=== PATIENT | female | born 1975 ===

== ENCOUNTER → 2020-04-13 08:54 | Outpatient (BNVA) | payer OTHER, SELFPAY | PROVIDERS: PCP Internal Medicine; Referring Provider Internal Medicine; Visit Provider Nurse Practitioner | DX: K31.84 Gastroparesis (principal); K59.04 Chronic idiopathic constipation; K21.9 Gastro-esophageal reflux disease without esophagitis; Z79.899 Other long term (current) drug therapy | CPT/HCPCS: 99213 ==

== ENCOUNTER 2020-06-19 08:25 | Outpatient (REF) | payer OTHER, SELFPAY ==
[2020-06-19 11:13] LABS: MANUAL DIFF FLAG NO
[2020-06-19 11:25] LABS: Basophils Percent Auto 0.4 % (0-2); Eosinophils Absolute Auto 0.1 X10*3/uL (0.0-0.4); Eosinophils Percent Auto 1.3 % (0-4); Hematocrit 41.5 % (37-47); Imm Gran Abs Auto 0.04 X10*3/uL (0.00-0.03); Imm Gran Pct Auto 0.5 % (0.0-0.4); Lymphocytes Absolute Auto 2.1 X10*3/uL (1.2-4.9); Lymphocytes Percent Auto 28.3 % (20-40); Mean Corpuscular HGB Conc 31.3 g/dl (31.0-35.0); Mean Corpuscular Volume 95.6 fL (80-98); Mean Platelet Volume 11.1 fL (9.4-12.3); Monocytes Absolute Auto 0.6 X10*3/uL (0.1-1.2); Monocytes Percent Auto 8.5 % (2-11); Neutrophils Absolute Auto 4.6 X10*3/uL (2.0-8.3); Platelet Count 256 X10*3/uL (160-400); Red Blood Count 4.34 X10*6/uL (4.20-5.50); Red Cell Distribution Width 12.9 % (11.0-16.0); White Blood Count 7.5 X10*3/uL (4.8-10.8)
[2020-06-19 11:43] LABS: Glucose Urine UA NEG (NEG); Leukocyte Esterase Urine NEG (NEG); Nitrite Urine NEG (NEG); PH 5.5 (5.0-8.0); Specific Gravity - Urine >= 1.030 (1.005-1.025); Urine Blood NEG (NEG); Urine Ketones NEG (NEG); Urine Protein NEG (NEG-TRACE)
[2020-06-19 11:48] LABS: Appearance Urine CLEAR; Color Urine YELLOW
[2020-06-19 11:50] LABS: Alanine Aminotransferase 31 U/L (0-31); Alkaline Phosphatase 119 U/L (39-117); Anion Gap 12 (12-20); Aspartate Amino Transferase 23 U/L (5-31); Bilirubin Total 0.2 mg/dL (0.0-1.0); Blood Urea Nitrogen 13 mg/dL (9-16); Calcium 9.3 mg/dL (8.4-10.2); Carbon Dioxide 25 mmol/L (22-29); Chloride 104 mmol/L (96-108); Cholesterol 159 mg/dL; Estimated Glomerular Filt Rate > 60; Glucose Fasting 133 mg/dL (60-99); HDL Cholesterol 54 mg/dL; LDL Cholesterol Calculated 63 mg/dl; Potassium 3.8 mmol/l (3.3-5.1); Sodium 137 mmol/L (135-145); Triglycerides 213 mg/dL
[2020-06-19 11:51] LABS: Creatinine Urine 115.96 mg/dL; Microalbum/Creatinine Ratio Ur 6.8 ug/mg cr
[2020-06-19 11:58] LABS: HBsAGNum1 0.21 S/CO (0.00-0.99); Hepatitis B Surface Antigen Negative (Negative)
[2020-06-19 12:06] LABS: Calcium Oxalate Crystals Urine TRACE /LPF; Squamous Epithelial Cell Urine 2+ /LPF
[2020-06-19 12:14] LABS: Free T4 (Free Thyroxine) 0.92 ng/dL (0.71-1.85); Thyroid Stimulating Hormone 8.83 uIU/mL (0.32-4.0); Vitamin D 25-OH Total 37.8 ng/mL (>30)
[2020-06-19 12:21] LABS: Hepatitis B Core Antibody Nonreactive (Nonreactive); ~Hepatitis B Surface Antibody NONREACTIVE (Nonreactive)
[2020-06-19 12:41] LABS: Folate 15.9 ng/mL (> or = 4.0); Vitamin B12 728 pg/mL (200-900)
[2020-06-20 17:12] LABS: Thyroid Peroxidase Antibodies 1 IU/mL (<9)
[2020-06-24 02:42] LABS: Thyroxine Binding Globulin 18.4 mcg/mL (13.5-30.9)
== END 2020-06-19 08:26 | disposition home or self-care (01) ==
LOC: HO.HMGCLDS 08:25
PROVIDERS: PCP Internal Medicine; Visit Provider Internal Medicine
DX: E11.9 Type 2 diabetes mellitus without complications (principal); I10 Essential (primary) hypertension; E78.5 Hyperlipidemia, unspecified; R79.89 Other specified abnormal findings of blood chemistry; R94.6 Abnormal results of thyroid function studies; E66.9 Obesity, unspecified; R20.2 Paresthesia of skin; J30.9 Allergic rhinitis, unspecified; K21.9 Gastro-esophageal reflux disease without esophagitis; Z28.3 Underimmunization status; E55.9 Vitamin D deficiency, unspecified
CPT/HCPCS: 36415; 80053; 80061; 81001; 82043; 82306; 82607; 82746; 84439; 84442; 84443; 85025; 86376; 86704; 86706; 87340

== ENCOUNTER 2020-06-26 10:44 | Outpatient (REF) | payer OTHER, SELFPAY ==
--- NOTE | 2020-06-26 10:50 | MM_ITS ---
EXAMINATION: MM DIAGNOSTIC DIGITAL BREAST TOMOSYNTHESIS, BILATERAL CLINICAL INFORMATION: Due for yearly. Probable benign calcifications for follow-up mid 3:00 left breast. The lifetime risk of breast cancer based on the Tyrer-Cuzick Model is 8%. COMPARISON: Mammography: 06/21/2019, 12/16/2018, 06/18/2018, 06/15/2018 (BI-RADS 0) TECHNIQUE: Digital breast tomosynthesis is performed in both the craniocaudal and mediolateral oblique views along with computer-aided detection (CAD). Synthesized 2D images are generated from the tomosynthesis. Additional magnification views left breast are obtained: CC x4, ML. FINDINGS: There are scattered areas of fibroglandular density (ACR BI-RADS breast composition Category b). Parenchymal pattern is similar to prior exams. There is no developing density or interval mass or architectural abnormality. No abnormal calcifications. The axilla and skin contours are unremarkable. The benign-appearing round calcifications for follow-up are no longer seen with certainty. There are no increasing calcifications or pleomorphic types. This concludes the long-term surveillance. Results are provided to the patient at time of visit by the technologist. MM/MM tomosynthesis diagnostic BI IMPRESSION: 1. No mammographic evidence of malignancy. 2. Left breast calcifications for follow-up no longer clearly visualized. No suspicious changes. ASSESSMENT: BI-RADS 2: Benign RECOMMENDATION: Routine annual mammography screening. This patient's information was entered into a reminder system with a target due date for their next mammogram.
== END 2020-06-26 10:45 | disposition home or self-care (01) ==
LOC: HO.MAMMO 10:44
PROVIDERS: PCP Internal Medicine; Visit Provider Internal Medicine
DX: R92.2 Inconclusive mammogram (principal)
CPT/HCPCS: 77062; 77066

== ENCOUNTER 2020-07-28 11:14 | Outpatient (REF) | payer OTHER, SELFPAY ==
--- NOTE | 2020-07-28 11:20 | XR_ITS ---
EXAMINATION: XR LUMBOSACRAL SPINE CLINICAL INFORMATION: Low back pain COMPARISON: Previous x-ray January 2015 TECHNIQUE: Three views of the lumbosacral spine. FINDINGS: Bone alignment is normal. No fracture or dislocation is seen. There is degenerative disc disease at L5-S1. There is lower lumbar spine facet arthritis. XR/XR lumbar spine 2-3V IMPRESSION: Degenerative disc disease at L5-S1 and lower lumbar spine facet arthritis.
== END 2020-07-28 11:15 | disposition home or self-care (01) ==
LOC: HO.XRAY 11:14
PROVIDERS: PCP Internal Medicine; Visit Provider Internal Medicine
DX: M54.5 Low back pain (principal)
CPT/HCPCS: 72100

== ENCOUNTER 2020-09-13 07:46 | Outpatient (REF) | payer OTHER, SELFPAY ==
[2020-09-13 08:42] LABS: MANUAL DIFF FLAG NO
[2020-09-13 08:44] LABS: Appearance Urine CLEAR; Color Urine YELLOW; Glucose Urine UA NEG (NEG); Leukocyte Esterase Urine NEG (NEG); Nitrite Urine NEG (NEG); Specific Gravity - Urine <= 1.005 (1.005-1.025); Urine Blood NEG (NEG); Urine Ketones NEG (NEG); Urine Protein NEG (NEG-TRACE)
[2020-09-13 08:50] LABS: Basophils Percent Auto 0.3 % (0-2); Eosinophils Absolute Auto 0.1 X10*3/uL (0.0-0.4); Eosinophils Percent Auto 1.5 % (0-4); Hematocrit 42.1 % (37-47); Hemoglobin 13.2 g/dl (12.0-16.0); Imm Gran Abs Auto 0.05 X10*3/uL (0.00-0.03); Imm Gran Pct Auto 0.5 % (0.0-0.4); Lymphocytes Absolute Auto 2.5 X10*3/uL (1.2-4.9); Lymphocytes Percent Auto 26.2 % (20-40); Mean Corpuscular HGB Conc 31.4 g/dl (31.0-35.0); Mean Corpuscular Hemoglobin 29.9 pg (27.0-33.0); Mean Corpuscular Volume 95.5 fL (80-98); Mean Platelet Volume 10.6 fL (9.4-12.3); Monocytes Absolute Auto 0.7 X10*3/uL (0.1-1.2); Monocytes Percent Auto 7.2 % (2-11); Neutrophils Absolute Auto 6.1 X10*3/uL (2.0-8.3); Neutrophils Percent Auto 64.3 % (45-73); Platelet Count 268 X10*3/uL (160-400); Red Blood Count 4.41 X10*6/uL (4.20-5.50); White Blood Count 9.5 X10*3/uL (4.8-10.8)
[2020-09-13 09:01] LABS: Estimated Average Glucose 146 mg/dL; Hemoglobin A1c % 6.7 %
[2020-09-13 09:18] LABS: Creatinine Urine 67.53 mg/dL; Microalbumin Urine < 5.0 mg/L
[2020-09-13 09:23] LABS: Alanine Aminotransferase 18 U/L (0-31); Albumin Level 4.1 g/dL (3.5-5.0); Alkaline Phosphatase 118 U/L (39-117); Anion Gap 12 (12-20); Aspartate Amino Transferase 20 U/L (5-31); Bilirubin Total 0.4 mg/dL (0.0-1.0); Blood Urea Nitrogen 9 mg/dL (9-16); Calcium 9.4 mg/dL (8.4-10.2); Carbon Dioxide 26 mmol/L (22-29); Chloride 105 mmol/L (96-108); Cholesterol 149 mg/dL; Estimated Glomerular Filt Rate > 60; Glucose Fasting 98 mg/dL (60-99); HDL Cholesterol 54 mg/dL; LDL Cholesterol Calculated 64 mg/dl; Potassium 4.3 mmol/L (3.3-5.1); Sodium 139 mmol/L (135-145); Triglycerides 159 mg/dL
[2020-09-13 09:38] LABS: Free T4 (Free Thyroxine) 0.89 ng/dL (0.71-1.85); Thyroid Stimulating Hormone 9.42 uIU/mL (0.32-4.0); Vitamin D 25-OH Total 30.9 ng/mL (>30)
== END 2020-09-13 07:47 | disposition home or self-care (01) ==
LOC: HO.LAB 07:46
PROVIDERS: PCP Internal Medicine; Visit Provider Internal Medicine
DX: R79.89 Other specified abnormal findings of blood chemistry (principal); E55.9 Vitamin D deficiency, unspecified; E11.9 Type 2 diabetes mellitus without complications; K21.9 Gastro-esophageal reflux disease without esophagitis; E66.9 Obesity, unspecified; E78.00 Pure hypercholesterolemia, unspecified
CPT/HCPCS: 36415; 80053; 80061; 81003; 82043; 82306; 83036; 84439; 84443; 85025

== ENCOUNTER → 2020-09-22 09:03 | Outpatient (BNVA) | payer OTHER, SELFPAY | PROVIDERS: PCP Internal Medicine; Referring Provider Internal Medicine; Visit Provider Nurse Practitioner ==

== ENCOUNTER 2020-09-29 10:00 | Outpatient (RCR) | payer OTHER, SELFPAY ==
--- NOTE | 2020-08-04 11:57 | MHC.PT.EP ---
[facility] [place] [facility] [place] [facility] [place] [facility] [address] Colleen De Los Santos [address] [phone] F: [phone] F: [phone] F: [phone] F: [phone] Physical Therapy Plan of Care Date of Evaluation: 08/04/20 Date of Surgery: Diagnosis: low back pain Assessment: Pt is a 44 y.o.f. with chief complaint of low back pain that began approximately 1 year ago following fall down stairs. Pt presents today with gait/postural abnormalities, decreased and pain lumbar ROM, strength deficits, and hypomobility of lumbar spine. Pt sxs are consistent with chronic low back pain further exacerbated by postural and gait abnormalities, and core/LE weakness. Pt will benefit from skilled PT 2x week for 4 weeks to improve strength, hip/low back ROM, gait abnormalities, and pain to aid in walking, sitting, sleeping,household cleaning, and ADLs. Frequency and Duration: The patient will be seen 2x/week for 4 weeks Short Term Goals: 2 Weeks: 1) Pt will be independent in HEP to maintain gains between sessions 2) Pt will self identify and correct posture to reduce pain 3. Improve lumbar AROM to WNL to aid in functional mobility Fci Goals: 4 Weeks 1) Pt hip strength will be >4/5 to aid in household cleaning. 2) Pt will be able to stand for >1 hour to aid in ADLs 3) Pt Oswestry will be >20 to demonstrate significant improvement in daily function Treatment Plan: Modalities to reduce pain, spasms and effusion. Manual therapy to restore motion and function. Therapeutic exercise to improve strength and flexibility. Neuromuscular re-education for posture and balance. Therapeutic activities to return to functional activities of daily living. Electronically signed by: Candi De León PT Please sign and return to therapist. Thank you for your referral.
--- NOTE | 2020-09-29 11:09 | MHC.PT.DC ---
[facility] [place] Office [place] Office [place] Office [address] Colleen De Los Santos [address] [phone] F: [phone] F: [phone] F: [phone] F: [phone] Physical Therapy Discharge Report Diagnosis: low back pain Date of Surgery: Date of Evaluation: 08/04/20 Date of Discharge: 09/29/20 Treatments to Date: 11 Cancellations to Date: 0 No Shows to Date: 0 Discharge Status: Achieved Goals Improved Function Independent with HEP Discharge Summary: Pt appropriate for d/c secondary to meeting 5/6 goals and Oswestry /. She reports less pain overall and able to do more without back pain. We reviewed HEP and no further questions at this time. Electronically signed by: Candi De León PT Please sign and return to therapist. Thank you for your referral.
== END 2020-09-29 11:10 | disposition home or self-care (01) ==
LOC: HO.PTCHIC 10:00
PROVIDERS: Visit Provider Internal Medicine
DX: M54.5 Low back pain (principal)
CPT/HCPCS: 97110; 97112; 97161; 97530

== ENCOUNTER 2020-10-06 12:06 | Outpatient (REF) | payer OTHER, SELFPAY ==
[2020-10-06 14:37] LABS: Estimated Average Glucose 146 mg/dL; Hemoglobin A1c % 6.7 %
== END 2020-10-06 12:07 | disposition home or self-care (01) ==
LOC: HO.HMGCLDS 12:06
PROVIDERS: PCP Internal Medicine; Visit Provider Internal Medicine
DX: E11.9 Type 2 diabetes mellitus without complications (principal)
CPT/HCPCS: 36415; 83036

== ENCOUNTER → 2020-10-23 09:06 | Outpatient (BNVA) | payer OTHER, SELFPAY | PROVIDERS: PCP Internal Medicine; Visit Provider Nurse Practitioner ==

== ENCOUNTER 2020-10-26 08:59 | Outpatient (REF) | payer OTHER, SELFPAY ==
--- NOTE | ~2020-10-26 | US_ITS ---
EXAMINATION: US ABDOMEN COMPLETE CLINICAL INFORMATION: Right upper quadrant pain. COMPARISON: Ultrasound abdomen complete 01/19/2019. MRI abdomen 07/01/2018. Renal ultrasound 06/12/2018. TECHNIQUE: Real-time imaging of the abdominal viscera. FINDINGS: PANCREAS: Normal. ABDOMINAL AORTA: The proximal, mid, and distal segments are normal in caliber. INFERIOR VENA CAVA: Visualized portions are normal. LIVER: The liver is normal in size. The liver contour is normal. Liver echogenicity is increased. No focal hepatic lesion. There is no intrahepatic biliary duct dilatation seen. GALLBLADDER: Gallbladder is normal in size. There is a 0.4 x 0.5 x 0.6 cm hyperechoic lesion adjacent to the gallbladder wall that does not move or shadow suggestive of a polyp. This is similar to previous exams. Gallbladder is otherwise unremarkable. COMMON BILE DUCT: Normal in caliber measuring 0.5 cm in diameter. RIGHT KIDNEY: Normal. No hydronephrosis. No renal calculi or focal parenchymal lesions. The kidney measures 12.7 cm in maximum dimension. LEFT KIDNEY: There is increasing complexity and size of the left renal cyst. This is in the midpole and demonstrates increased thickened septations, vascularity and question mural nodule. This measures 5 x 4.9 x 4.5 cm compared to 4.1 x 3.7 x 3.1 cm on most recent ultrasound December 2018. No hydronephrosis or renal calculi. The kidney measures 12.7 cm in maximum dimension. SPLEEN: Normal. The spleen measures 10.6 cm in maximum dimension. FREE FLUID: None. US/US abdomen complete IMPRESSION: Increasing size and complexity of left renal cyst. Follow-up renal imaging with and without contrast with CT or MRI recommended. Small gallbladder wall polyp. Slightly echogenic liver probably representing fatty infiltration.
== END 2020-10-26 09:00 | disposition home or self-care (01) ==
LOC: HO.HMGCX 08:59
PROVIDERS: Visit Provider Nurse Practitioner
DX: R10.11 Right upper quadrant pain (principal)
CPT/HCPCS: 76700

== ENCOUNTER 2020-10-31 08:27 | Outpatient (REF) | payer OTHER, SELFPAY ==
--- NOTE | ~2020-10-31 | XR_ITS ---
EXAMINATION: XR ABDOMEN WITH DECUBITUS VIEWS CLINICAL INDICATION: Nausea and vomiting COMPARISON: None TECHNIQUE: Supine and upright views of the abdomen and pelvis FINDINGS: There is a paucity of bowel gas. There is a nonspecific bowel gas pattern with air-fluid levels seen in nondistended loops of bowel in the right abdomen. There is no evidence of free air. There are no calcifications there are degenerative changes of the lower lumbar spine. XR/XR abdomen w decubitus IMPRESSION: Nonspecific bowel gas pattern with air-fluid levels seen in distended loops of bowel in the right abdomen.
[2020-10-31 12:00] LABS: MANUAL DIFF FLAG NO
[2020-10-31 12:06] LABS: Basophils Absolute Auto 0.1 X10*3/uL (0.0-0.2); Basophils Percent Auto 0.8 % (0-2); Eosinophils Absolute Auto 0.7 X10*3/uL (0.0-0.4); Eosinophils Percent Auto 7.7 % (0-4); Hematocrit 40.9 % (37-47); Imm Gran Abs Auto 0.06 X10*3/uL (0.00-0.03); Imm Gran Pct Auto 0.7 % (0.0-0.4); Lymphocytes Absolute Auto 2.4 X10*3/uL (1.2-4.9); Lymphocytes Percent Auto 25.8 % (20-40); Mean Corpuscular HGB Conc 31.8 g/dl (31.0-35.0); Mean Corpuscular Hemoglobin 30.2 pg (27.0-33.0); Mean Corpuscular Volume 94.9 fL (80-98); Mean Platelet Volume 10.9 fL (9.4-12.3); Monocytes Absolute Auto 0.6 X10*3/uL (0.1-1.2); Monocytes Percent Auto 6.8 % (2-11); Neutrophils Absolute Auto 5.4 X10*3/uL (2.0-8.3); Neutrophils Percent Auto 58.2 % (45-73); Platelet Count 267 X10*3/uL (160-400); Red Blood Count 4.31 X10*6/uL (4.20-5.50); Red Cell Distribution Width 13.1 % (11.0-16.0); White Blood Count 9.2 X10*3/uL (4.8-10.8)
[2020-10-31 12:14] LABS: Glucose Urine UA NEG (NEG); Leukocyte Esterase Urine NEG (NEG); Nitrite Urine NEG (NEG); Urine Blood NEG (NEG); Urine Ketones NEG (NEG); Urine Protein NEG (NEG-TRACE)
[2020-10-31 12:16] LABS: Appearance Urine CLEAR; Color Urine YELLOW
[2020-10-31 12:32] LABS: Alanine Aminotransferase 21 U/L (0-31); Albumin Level 4.3 g/dL (3.5-5.0); Alkaline Phosphatase 146 U/L (39-117); Amylase 40 U/L (28-100); Anion Gap 11 (12-20); Aspartate Amino Transferase 16 U/L (5-31); Bilirubin Total 0.2 mg/dL (0.0-1.0); Blood Urea Nitrogen 10 mg/dL (9-16); C Reactive Protein 1.16 mg/dL (< or = 0.50); Calcium 9.9 mg/dL (8.4-10.2); Carbon Dioxide 26 mmol/L (22-29); Chloride 106 mmol/L (96-108); Estimated Glomerular Filt Rate > 60; Glucose Random 189 mg/dL (60-115); Lipase 42 U/L (8-78); Potassium 4.1 mmol/L (3.3-5.1); Sodium 139 mmol/L (135-145); Total Protein 7.1 g/dL (6.5-8.0)
[2020-11-03 19:56] LABS: Transglutaminase Ab IgG 1 U/mL; Transglutaminase IgA 1 U/mL
== END 2020-10-31 08:28 | disposition home or self-care (01) ==
LOC: HO.LAB 08:27
PROVIDERS: PCP Internal Medicine; Visit Provider Nurse Practitioner
DX: R10.11 Right upper quadrant pain (principal); R11.2 Nausea with vomiting, unspecified; R14.0 Abdominal distension (gaseous); R79.89 Other specified abnormal findings of blood chemistry; E66.9 Obesity, unspecified; K31.84 Gastroparesis; K21.9 Gastro-esophageal reflux disease without esophagitis; K59.04 Chronic idiopathic constipation; Z79.899 Other long term (current) drug therapy
CPT/HCPCS: 36415; 74021; 80053; 81003; 82150; 83516; 83690; 85025; 86140

== ENCOUNTER → 2020-11-06 12:38 | Outpatient (BNVA) | payer OTHER, SELFPAY | PROVIDERS: Visit Provider Nurse Practitioner ==

== ENCOUNTER 2020-12-14 13:12 | Outpatient (REF) | payer OTHER, SELFPAY ==
--- NOTE | ~2020-12-14 | MR_ITS ---
EXAMINATION: MR ABDOMEN WITHOUT AND WITH CONTRAST CLINICAL INFORMATION: Complex renal cyst COMPARISON: Previous abdominal ultrasound December 2018 MRI of the abdomen June 2018 TECHNIQUE: MR abdomen was performed without and with use of 10 mL intravenous Gadavist gadolinium contrast. Postcontrast images are performed in multiphase dynamic sequences. Imaging was performed in 3 planes. FINDINGS: LUNG BASES: The visualized lung bases are unremarkable. LIVER, GALLBLADDER, AND BILIARY TREE: The liver is normal in size and shape. Liver loses signal on out of phase sequences suggestive of fatty infiltration. No focal liver lesion is seen. The gallbladder is normal-appearing. There is no biliary duct dilatation. PANCREAS: There is incidental pancreas divisum noted. The pancreatic duct does not appear dilated. Pancreas is otherwise unremarkable. SPLEEN: Normal. ADRENAL GLANDS: Normal. KIDNEYS AND URETERS: There is a 3.8 x 4.4 x 4.5 cm peripelvic cyst in the left kidney. This is low signal on T1-weighted sequences and high signal on T2-weighted sequences. This has several thin septations. No solid component nodularity or enhancement is seen. This does not appear appreciably changed in size or appearance compared to June 2018 MRI. The kidneys are otherwise unremarkable. GASTROINTESTINAL TRACT: No bowel obstruction. No ascites or fluid collection. ABDOMINAL WALL: No significant hernia is appreciated. LYMPH NODES: No lymphadenopathy. No ascites. VASCULAR: Unremarkable. OSSEOUS STRUCTURES: Marrow signal normal. There is degenerative disc disease at L5-S1. MR/MR abdomen wo/w con IMPRESSION: Stable slightly complex peripelvic cyst in the left kidney with several thin septations. No solid component, nodularity or enhancement seen. Fatty liver.
== END 2020-12-14 13:13 | disposition home or self-care (01) ==
LOC: HO.MRI 13:12
PROVIDERS: Visit Provider Internal Medicine
DX: I12.9 Hypertensive chronic kidney disease with stage 1 through stage 4 chronic kidney disease, or unspecified chronic kidney disease (principal); N18.2 Chronic kidney disease, stage 2 (mild); N28.1 Cyst of kidney, acquired
CPT/HCPCS: 74183; A9585

== ENCOUNTER → 2020-12-22 08:02 | Outpatient (REF) | payer OTHER, SELFPAY ==
--- NOTE | ~2020-12-22 | NM_ITS ---
EXAMINATION: NM BILIARY TRACT WITH ORAL FATTY MEAL CLINICAL INFORMATION: Right upper quadrant pain. COMPARISON: No previous biliary scan is available for comparison. MRI of the abdomen dated 12/14/2020 and abdominal ultrasound dated 10/26/2020 are available for comparison. TECHNIQUE: Serial gamma scintillation camera images were obtained over the abdomen for a total observation period of 131 minutes following the intravenous administration of 5 mCi Tc-99m Mebrofenin. FINDINGS: There is good concentration of activity in the liver by 5 minutes post injection. Biliary activity is visualized by 10 minutes in the gallbladder is well visualized by 20 minutes. Small bowel activity is well visualized by 25 minutes. At 60 minutes post Mebrofenin injection, 8 ounces of Ensure-plus Brand was administered orally and an additional 60 minutes of images were obtained. There is only minimal gallbladder emptying following ingestion of the fatty meal. At the end of the study there is abnormal retention of activity in the gallbladder, but essentially complete clearance of activity from the liver. Diffuse small bowel activity is also well-visualized at this time. The calculated gallbladder ejection fraction is 30% (normal gallbladder ejection fraction using Ensure supplement orally is greater than 33%). NM/NM hepatobiliary wo pharm IMPRESSION: 1. Visualization of the gallbladder is evidence of a patent cystic duct and strong evidence against the diagnosis of acute cholecystitis. The common bile duct is patent. Liver function appears normal. 2. Poor gallbladder emptying and a low gallbladder ejection fraction are evidence of impaired gallbladder contractility and most likely due to chronic cholecystitis.
== END ==
LOC: HO.NUCMED 08:02
PROVIDERS: Visit Provider Nurse Practitioner
DX: R10.11 Right upper quadrant pain (principal); R11.2 Nausea with vomiting, unspecified
CPT/HCPCS: 78226; A9537

== ENCOUNTER 2020-12-29 08:38 | Outpatient (REF) | payer OTHER, SELFPAY ==
[2020-12-29 11:12] LABS: MANUAL DIFF FLAG NO
[2020-12-29 11:32] LABS: Glucose Urine UA NEG (NEG); Leukocyte Esterase Urine NEG (NEG); Nitrite Urine NEG (NEG); Urine Blood NEG (NEG); Urine Ketones NEG (NEG); Urine Protein NEG (NEG-TRACE)
[2020-12-29 11:35] LABS: Appearance Urine CLEAR; Color Urine YELLOW
[2020-12-29 11:42] LABS: Basophils Percent Auto 0.4 % (0-2); Eosinophils Absolute Auto 0.2 X10*3/uL (0.0-0.4); Eosinophils Percent Auto 2.2 % (0-4); Hematocrit 42.1 % (37-47); Hemoglobin 13.3 g/dl (12.0-16.0); Imm Gran Abs Auto 0.08 X10*3/uL (0.00-0.03); Imm Gran Pct Auto 0.9 % (0.0-0.4); Lymphocytes Absolute Auto 2.7 X10*3/uL (1.2-4.9); Mean Corpuscular HGB Conc 31.6 g/dl (31.0-35.0); Mean Corpuscular Hemoglobin 30.4 pg (27.0-33.0); Mean Corpuscular Volume 96.1 fL (80-98); Mean Platelet Volume 10.9 fL (9.4-12.3); Monocytes Absolute Auto 0.7 X10*3/uL (0.1-1.2); Monocytes Percent Auto 7.7 % (2-11); Neutrophils Absolute Auto 5.5 X10*3/uL (2.0-8.3); Neutrophils Percent Auto 59.8 % (45-73); Platelet Count 293 X10*3/uL (160-400); Red Blood Count 4.38 X10*6/uL (4.20-5.50); Red Cell Distribution Width 13.2 % (11.0-16.0); White Blood Count 9.2 X10*3/uL (4.8-10.8)
[2020-12-29 12:05] LABS: Creatinine Urine 156.54 mg/dL; Microalbum/Creatinine Ratio Ur 21.7 ug/mg cr
[2020-12-29 12:12] LABS: Free T4 (Free Thyroxine) 0.89 ng/dL (0.71-1.85); Thyroid Stimulating Hormone 8.09 uIU/mL (0.32-4.0); Vitamin D 25-OH Total 29.2 ng/mL (>30)
[2020-12-29 12:18] LABS: Alanine Aminotransferase 21 U/L (0-31); Albumin Level 4.3 g/dL (3.5-5.0); Alkaline Phosphatase 120 U/L (39-117); Anion Gap 15 (12-20); Aspartate Amino Transferase 20 U/L (5-31); Bilirubin Total 0.4 mg/dL (0.0-1.0); Blood Urea Nitrogen 9 mg/dL (9-16); Calcium 9.5 mg/dL (8.4-10.2); Carbon Dioxide 22 mmol/L (22-29); Chloride 105 mmol/L (96-108); Cholesterol 164 mg/dL; Estimated Glomerular Filt Rate > 60; Glucose Fasting 148 mg/dL (60-99); HDL Cholesterol 58 mg/dL; LDL Cholesterol Calculated 67 mg/dl; Potassium 4.3 mmol/L (3.3-5.1); Sodium 138 mmol/L (135-145); Total Protein 7.4 g/dL (6.5-8.0); Triglycerides 197 mg/dL
== END 2020-12-29 08:39 | disposition home or self-care (01) ==
LOC: HO.HMGCLDS 08:38
PROVIDERS: PCP Internal Medicine; Visit Provider Internal Medicine
DX: E66.9 Obesity, unspecified (principal); E78.00 Pure hypercholesterolemia, unspecified; R79.89 Other specified abnormal findings of blood chemistry; E55.9 Vitamin D deficiency, unspecified; I10 Essential (primary) hypertension; J30.9 Allergic rhinitis, unspecified; K21.9 Gastro-esophageal reflux disease without esophagitis; E11.9 Type 2 diabetes mellitus without complications
CPT/HCPCS: 36415; 80053; 80061; 81003; 82043; 82306; 84439; 84443; 85025

== ENCOUNTER → 2021-01-02 12:25 | Outpatient (BNVA) | payer OTHER, SELFPAY | PROVIDERS: Visit Provider Nurse Practitioner ==

== ENCOUNTER → 2021-01-31 10:39 | Outpatient (BNVA) | payer OTHER, SELFPAY | PROVIDERS: Visit Provider Surgery ==

== ENCOUNTER → 2021-03-19 15:05 | Outpatient (BNVA) | payer OTHER, SELFPAY | PROVIDERS: PCP Internal Medicine; Visit Provider Nurse Practitioner ==

== ENCOUNTER 2021-03-27 08:40 | Outpatient (REF) | payer OTHER, SELFPAY ==
[2021-03-27 11:29] LABS: MANUAL DIFF FLAG NO
[2021-03-27 11:35] LABS: Appearance Urine CLEAR; Color Urine YELLOW; Glucose Urine UA NEG (NEG); Leukocyte Esterase Urine NEG (NEG); Nitrite Urine NEG (NEG); Urine Blood NEG (NEG); Urine Ketones NEG (NEG); Urine Protein NEG (NEG-TRACE)
[2021-03-27 11:45] LABS: Basophils Absolute Auto 0.1 X10*3/uL (0.0-0.2); Basophils Percent Auto 0.5 % (0-2); Eosinophils Absolute Auto 0.2 X10*3/uL (0.0-0.4); Eosinophils Percent Auto 1.7 % (0-4); Hematocrit 42.5 % (37-47); Hemoglobin 13.5 g/dl (12.0-16.0); Imm Gran Abs Auto 0.05 X10*3/uL (0.00-0.03); Imm Gran Pct Auto 0.5 % (0.0-0.4); Lymphocytes Absolute Auto 2.7 X10*3/uL (1.2-4.9); Lymphocytes Percent Auto 26.7 % (20-40); Mean Corpuscular HGB Conc 31.8 g/dl (31.0-35.0); Mean Corpuscular Hemoglobin 30.1 pg (27.0-33.0); Mean Corpuscular Volume 94.7 fL (80-98); Monocytes Absolute Auto 0.8 X10*3/uL (0.1-1.2); Monocytes Percent Auto 7.9 % (2-11); Neutrophils Absolute Auto 6.2 X10*3/uL (2.0-8.3); Neutrophils Percent Auto 62.7 % (45-73); Platelet Count 307 X10*3/uL (160-400); Red Blood Count 4.49 X10*6/uL (4.20-5.50); Red Cell Distribution Width 12.9 % (11.0-16.0)
[2021-03-27 12:01] LABS: Estimated Average Glucose 151 mg/dL; Hemoglobin A1c % 6.9 %
[2021-03-27 12:03] LABS: Alanine Aminotransferase 20 U/L (0-31); Albumin Level 4.3 g/dL (3.5-5.0); Alkaline Phosphatase 113 U/L (39-117); Anion Gap 15 (12-20); Aspartate Amino Transferase 16 U/L (5-31); Bilirubin Total 0.3 mg/dL (0.0-1.0); Blood Urea Nitrogen 9 mg/dL (9-16); Calcium 9.9 mg/dL (8.4-10.2); Carbon Dioxide 21 mmol/L (22-29); Chloride 107 mmol/L (96-108); Cholesterol 174 mg/dL; Estimated Glomerular Filt Rate > 60; Glucose Fasting 116 mg/dL (60-99); HDL Cholesterol 53 mg/dL; LDL Cholesterol Calculated 84 mg/dl; Sodium 139 mmol/L (135-145); Total Protein 7.2 g/dL (6.5-8.0); Triglycerides 185 mg/dL
[2021-03-27 12:10] LABS: Creatinine Urine 70.56 mg/dL
[2021-03-27 12:31] LABS: TSH reflex Free T4 3.81 uIU/mL (0.32-4.0); Vitamin D 25-OH Total 28.5 ng/mL (>30)
== END 2021-03-27 08:41 | disposition home or self-care (01) ==
LOC: HO.HMGCLDS 08:40
PROVIDERS: PCP Internal Medicine; Visit Provider Internal Medicine
DX: I10 Essential (primary) hypertension (principal); K21.9 Gastro-esophageal reflux disease without esophagitis; E78.00 Pure hypercholesterolemia, unspecified; E11.9 Type 2 diabetes mellitus without complications; E55.9 Vitamin D deficiency, unspecified; E66.9 Obesity, unspecified; R79.89 Other specified abnormal findings of blood chemistry
CPT/HCPCS: 36415; 80053; 80061; 81003; 82043; 82306; 83036; 84443; 85025

== ENCOUNTER 2021-05-07 08:41 | Day surgery (SDC) | payer OTHER, SELFPAY ==
[2021-04-30 14:28] VITALS: BMI 41.5
--- NOTE | 2021-05-03 14:43 | HO.ANESPROP2 ---
Documented by User: Haylie Hollingsworth NP 05/03/21 14:44 HPI - Anesthesia Eval Consult details Narrative: 45yo F for Upper Endoscopy PMFSH Active Problems Active Problems: All Active Problems (Updated 04/30/21 @ 14:18 by Dalila Calix RN) Chronic idiopathic constipation (Acute) GERD (gastroesophageal reflux disease) (Acute) Abdominal bloating (Acute) RUQ abdominal pain (Acute) Nausea and vomiting (Acute) Lump of scalp (Acute) Chronic cholecystitis without calculus (Acute) Morbid obesity with BMI of 40.0-44.9, adult (Acute) Biliary dyskinesia (Acute) Elevated TSH (Acute) Obesity (BMI 30-39.9) (Acute) Depression (Acute) Anxiety (Acute) Insomnia (Acute) Obstructive sleep apnea (Acute) Vitamin D deficiency (Acute) 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 myelopathy or radiculopathy (Acute) Elevated LFTs (Acute) Allergic rhinitis (Acute) Asthma (Acute) Migraine (Acute) Pure hypercholesterolemia (Acute) Benign essential hypertension (Acute) Diabetes mellitus (Acute) Past Medical History Medical History (Updated 04/30/21 @ 14:18 by Dalila Calix RN) Allergic rhinitis Anxiety Asthma Benign essential hypertension Biliary dyskinesia Depression Diabetes mellitus Elevated LFTs Elevated TSH Gastroparesis IBS (irritable bowel syndrome) Insomnia Migraine Morbid obesity with BMI of 40.0-44.9, adult Obesity (BMI 30-39.9) Obstructive sleep apnea Pure hypercholesterolemia 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 myelopathy or radiculopathy Vitamin D deficiency Family History Family History Father Diabetes Hypertension Heart problem Mother Arthritis Diabetes Hypertension Maternal Grandmother Breast cancer, Onset Age: 72 Family/Other Diabetes Hypertension Heart problem Surgical History Surgical History (Updated 05/07/21 @ 08:46 by Wendie Rasheed RN) History of surgery of head Hx of colonoscopy (~03/2018) Hx of endoscopy Hx of hysterectomy (~08/2011) Hx of tubal ligation Social History Social History Household Members: Spouse Housing: House Alcohol intake: never Patient Tobacco Use Status: Never used Tobacco Second Hand Smoke Exposure: No Use of substances other than those prescribed or required for medical reasons: No Advance Directives: Yes Advance Directives Information Provided: Yes Advance Directives on File: Yes Advance Directives Date on File: 03/20/16 service: No Current occupational status: disabled Meds Allergies Allergy/AdvReac Type Severity Reaction Status Date / Time meclizine AdvReac tachycardia Verified 05/07/21 08:46 metoclopramide AdvReac tachycardia Verified 05/07/21 08:46 Home Medications Medication Instructions Recorded Confirmed Last Taken Type magnesium hydroxide 400 mg/5 mL 5 ml PO BEDTIME PRN 04/11/20 04/30/21 Unknown History oral suspension (Milk of Magnesia) amitriptyline 100 mg tablet 100 mg PO DAILY 06/28/20 04/30/21 Unknown History clonazepam 1 mg tablet 1 mg PO TID 06/28/20 04/30/21 Unknown History melatonin 3 mg tablet 6 mg PO DAILY 06/28/20 04/30/21 Unknown History propranolol 80 mg tablet 80 mg PO BID 06/28/20 04/30/21 Unknown History sertraline 100 mg tablet 100 mg PO DAILY 06/28/20 04/30/21 Unknown History ziprasidone HCl 80 mg capsule 80 mg PO BID 06/28/20 04/30/21 Unknown History (Geodon) topiramate 50 mg tablet 50 mg PO BID 11/06/20 04/30/21 Unknown History blood sugar diagnostic (FreeStyle #10 ea 12/28/20 04/02/21 Unknown History Lite Strips) amitriptyline 75 mg tablet 75 mg PO BEDTIME 03/19/21 04/30/21 Unknown History Exam Exam Date and Time: May 03, 2021 1443 Height,Weight and Vital Signs: Height 5 ft 4 in Weight 109.769 kg Pertinent Lab Results Pertinent Lab Results: Laboratory Tests 03/27/21 03/27/21 08:54 08:54 WBC 10.0 Hgb 13.5 Hct 42.5 Plt Count 307 Sodium 139 Potassium 4.0 Chloride 107 Carbon Dioxide 21 L BUN 9 Creatinine 0.77 Assessment and Plan Assessment Anesthesia Assessment: Chart Reviewed Documented by User: Katerin Antoine MD 05/07/21 08:55 [facility] Past Medical History Medical History (Updated 04/30/21 @ 14:18 by Dalila Calix, NAVDEEP) Allergic rhinitis Anxiety Asthma Benign essential hypertension Biliary dyskinesia Depression Diabetes mellitus Elevated LFTs Elevated TSH Gastroparesis IBS (irritable bowel syndrome) Insomnia Migraine Morbid obesity with BMI of 40.0-44.9, adult Obesity (BMI 30-39.9) Obstructive sleep apnea Pure hypercholesterolemia 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 myelopathy or radiculopathy Vitamin D deficiency Family History Family History Father Diabetes Hypertension Heart problem Mother Arthritis Diabetes Hypertension Maternal Grandmother Breast cancer, Onset Age: 72 Family/Other Diabetes Hypertension Heart problem Family history of problems with anesthesia: No Surgical History Surgical History (Updated 05/07/21 @ 08:46 by Wendie Rasheed RN) History of surgery of head Hx of colonoscopy (~03/2018) Hx of endoscopy Hx of hysterectomy (~08/2011) Hx of tubal ligation History of Problems with Anesthesia: No Social History Social History Household Members: Spouse Housing: House Alcohol intake: never Patient Tobacco Use Status: Never used Tobacco Second Hand Smoke Exposure: No Use of substances other than those prescribed or required for medical reasons: No Advance Directives: Yes Advance Directives Information Provided: Yes Advance Directives on File: Yes Advance Directives Date on File: 03/20/16 service: No Current occupational status: disabled Meds Allergies Allergy/AdvReac Type Severity Reaction Status Date / Time meclizine AdvReac tachycardia Verified 05/07/21 08:46 metoclopramide AdvReac tachycardia Verified 05/07/21 08:46 Home Medications Medication Instructions Recorded Confirmed Last Taken Type magnesium hydroxide 400 mg/5 mL 5 ml PO BEDTIME PRN 04/11/20 04/30/21 Unknown History oral suspension (Milk of Magnesia) amitriptyline 100 mg tablet 100 mg PO DAILY 06/28/20 04/30/21 Unknown History clonazepam 1 mg tablet 1 mg PO TID 06/28/20 04/30/21 Unknown History melatonin 3 mg tablet 6 mg PO DAILY 06/28/20 04/30/21 Unknown History propranolol 80 mg tablet 80 mg PO BID 06/28/20 04/30/21 Unknown History sertraline 100 mg tablet 100 mg PO DAILY 06/28/20 04/30/21 Unknown History ziprasidone HCl 80 mg capsule 80 mg PO BID 06/28/20 04/30/21 Unknown History (Nadira) topiramate 50 mg tablet 50 mg PO BID 11/06/20 04/30/21 Unknown History blood sugar diagnostic (FreeStyle #10 ea 12/28/20 04/02/21 Unknown History Lite Strips) amitriptyline 75 mg tablet 75 mg PO BEDTIME 03/19/21 04/30/21 Unknown History Exam Airway Mallampati Class: III (Missing multiple teeth nothing loose) TM Dist: >3cm Neck ROM: Full Heart: rrr Lungs: cta Assessment and Plan Assessment Anesthesia Assessment: Anesthesia Plan Discussed and Chart Reviewed Final Anesthetic Review Family History of Problems with Anesthesia: No History of Problems with Anesthesia: No NPO: Yes ASA Class: III Final Preanesthetic Review: No Changes in Pt Med Stat, Meds/Allgs Chart Reviewed and Consent Obtained/Reviewed Patient Risk: Intermediate Procedure Risk: Intermediate Anesthetic Plan Anesthetic Plan: MAC: Disposition: Standard PACU
[2021-05-07 08:48] VITALS: BP 126/80; PULSE 62; RESP 16; TEMP 35.9; O2SAT 100
[2021-05-07] MEDS: Lactated Ringers 1,000 ML 100 ML IVCONT (09:05)
--- NOTE | 2021-05-07 09:12 | MHC.SHP ---
Pre-Procedural Eval Section A Date of Service: 05/07/21 The patient is an INPATIENT: No The History & Physical has been completed within 30 days and I have reviewed it.: No Section B Chief Complaint: Epigastric Pain Details of Present Illness: epigastric pain, nausea and vomiting Relevant Family History (Specify if Yes): No Relevant Social History: None Present Medications: see Short Stay Collaborative assessment Medical History: Significant History (Allergic rhinitis Anxiety Asthma Benign essential hypertension Biliary dyskinesia Depression Diabetes mellitus Elevated LFTs Elevated TSH Gastroparesis IBS (irritable bowel syndrome) Insomnia Migraine Morbid obesity with BMI of 40.0-44.9, adult Obesity (BMI 30-39.9) Obstructive sleep apnea Pure hype) History of Previous Operations: Relevant previous surgery/procedure and date(s) (History of surgery of head Hx of colonoscopy (~03/2018) Hx of endoscopy Hx of hysterectomy (~08/2011) Allergies: Allergies Allergy/AdvReac Type Severity Reaction Status Date / Time meclizine AdvReac tachycardia Verified 05/07/21 08:46 metoclopramide AdvReac tachycardia Verified 05/07/21 08:46 Review of Systems Sugical H&P ROS: Negative: Constitution, Cardiovascular, Respiratory and Gastrointestinal Exam Surgical H&P Exam: Normal: Heart, Normal: Lungs, Normal: Extremities and Normal: Abdomen Plan Diagnosis/Plan: Unchanged I have reviewed the history and physical and performed a pertinent physical examination on my patient. No changes have occurred unless specified.
[2021-05-07 09:15] LABS: Glucose, Whole Blood 116 mg/dL (60-115)
--- NOTE | 2021-05-07 09:18 | PM.OP ---
Brief Operative Note Date of Service: 05/07/21 Pre-op diagnosis: abdominal pain, heartburn, nausea, vomiting Post-op diagnosis: other (GERD, gastritis) Procedure: FLEXIBLE TRANSORAL UPPER GASTROINTESTINAL ENDOSCOPY WITH BIOPSIES Consent: Indications for the procedure and potential complications of bleeding, perforation, reaction to medications and missed diagnosis were discussed with the patient and informed consent was obtained. Instrument: Olympus GIF H 190 mid size upper endoscope Monitoring: Vital signs and clinical assessment, continuous EKG monitoring, Pulse oximetry, Carbon Dioxide monitoring and blood pressure monitoring were done throughout the procedure. Procedure: The patient was placed in the left lateral decubitis position and pre-procedure medications were administered and a bite block was placed. The endoscope was inserted into the mouth and advanced under direct vision to the third part of duodenum. A careful inspection was made as the upper endoscope was withdrawn including a retroflexed examination of the proximal stomach; Findings and interventions are described below. Findings: Larynx: Normal Esophagus: GE junction at 38 cms. No esophagitis or Cervantes's. Biopsies were obtained from proximal esophagus to check for EOE Stomach: Prominent and erythematous gastric folds along the greater curvature - biopsied. Nodular appearing gastric mucosa in the gastric body - biopsied. Moderate gastric erythema with linear erythematous streaks in the anrum. Biopsies were obtained. Grade 2 flap valve on retroflexed examination of the cardia. Duodenum: Normal bulb and descending duodenum Intervention: Biopsies as noted above Intervention: Biopsies as noted above Impression and Post Procedure Diagnosis: Endoscopy Findings: ESOPHAGUS: GE junction at 38 cms. No esophagitis or Cervantes's. Biopsies were obtained from proximal esophagus to check for EOE STOMACH: Prominent and erythematous gastric folds along the greater curvature (likely due to NSAID use) - biopsied. Nodular appearing gastric mucosa in the gastric body - biopsied. Moderate gastric erythema with linear erythematous streaks in the anrum. Biopsies were obtained. Plan: Await pathology results Patient has an appointment on 05/22/21 in the GI Clinic with Tiana Foster NP. Above findings were reviewed with the patient and GERD and Gastritis handouts were given in the discharge area Pt advised to continue Omeprazole 40 mg daily and avoid NSAID use. Surgeon: Carla Mccallum MD Anesthesia: MAC (Maddy Junior CRNA) Was an Wire Spring Relay Adjuster used for this Procedure?: No Wire Spring Relay Adjuster: Benito Sanchez Estimated blood loss (mL): 0 Pathology: other (A- GASTRIC ANTRUM BXS R/O H. PYLORI B- GASTRIC FOLD BXS C- GASTRIC BODY BXS D- PROXIMAL ESOPHAGUS BXS R/O EOE) Condition: stable Disposition: PACU
--- NOTE | 2021-05-07 09:19 | P.OP_ITS ---
Operative Note Operative Note Date of Service: 05/07/21 Narrative: Pre-op diagnosis:?abdominal pain, heartburn, nausea, vomiting Post-op diagnosis:?other (GERD, gastritis) Procedure:? FLEXIBLE TRANSORAL UPPER GASTROINTESTINAL ENDOSCOPY WITH BIOPSIES Consent:?Indications for the procedure and potential complications of bleeding, perforation, reaction to medications and missed diagnosis were discussed with the patient and informed consent was obtained. Instrument:?Olympus GIF H 190 mid size upper endoscope Monitoring: Vital signs and clinical assessment, continuous EKG monitoring, Pulse oximetry, Carbon Dioxide monitoring and blood pressure monitoring were done throughout the procedure. Procedure:?The patient was placed in the left lateral decubitis position and pre-procedure medications were administered and a bite block was placed. The endoscope was inserted into the mouth and advanced under direct vision to the third part of duodenum. A careful inspection was made as the upper endoscope was withdrawn including a retroflexed examination of the proximal stomach; Findings and interventions are described below. Findings: Larynx:? Normal Esophagus: GE junction at 38 cms. No esophagitis or Cervantes's. Biopsies were obtained from proximal esophagus to check for EOE Stomach: Prominent and erythematous gastric folds along the greater curvature - biopsied.? Nodular appearing gastric mucosa in the gastric body - biopsied. Moderate gastric erythema with linear erythematous streaks in the anrum. Biopsies were obtained. Grade 2 flap valve on retroflexed examination of the cardia. Duodenum: Normal bulb and descending duodenum Intervention: Biopsies as noted above Intervention: Biopsies as noted above Impression and Post Procedure Diagnosis: Endoscopy Findings: ESOPHAGUS: GE junction at 38 cms. No esophagitis or Cervantes's. Biopsies were obtained from proximal esophagus to check for EOE STOMACH: Prominent and erythematous gastric folds along the greater curvature (likely due to NSAID use) - biopsied.? Nodular appearing gastric mucosa in the gastric body - biopsied. Moderate gastric erythema with linear erythematous streaks in the anrum. Biopsies were obtained. Plan: Await pathology results Patient has an appointment on 05/22/21 in the GI [facility] with? Tiana Foster NP. Above findings were reviewed with the patient and GERD and Gastritis handouts were given in the discharge area Pt advised to continue Omeprazole 40 mg daily and avoid NSAID use. Surgeon:?Carla Mccallum MD Anesthesia:?MAC (Maddy Junior CRNA) Was an Loop Cutter used for this Procedure?:?No Loop Cutter:?Benito Sanchez Estimated blood loss (mL):?0 Pathology:?other (A- GASTRIC ANTRUM BXS? R/O H. PYLORI? B- GASTRIC FOLD BXS? C- GASTRIC BODY BXS? D- PROXIMAL ESOPHAGUS BXS? R/O EOE) Condition:?stable Disposition:?PACU
[2021-05-07 09:45] VITALS: BP 104/64; PULSE 63; RESP 16; TEMP 36.6; O2SAT 100
[2021-05-07 10:00] VITALS: BP 105/65; PULSE 64; RESP 18; TEMP 36.3; O2SAT 100
== END 2021-05-07 10:33 | disposition home or self-care (01) ==
PROVIDERS: PCP Internal Medicine; Visit Provider Internal Medicine Gastroenterology
PROC: 0DJ08ZZ Inspection of Upper Intestinal Tract, Via Natural or Artificial Opening Endoscopic (ICD-10-PCS; CPT 43235; principal; 2021-05-07 10:10)
DX: K21.9 Gastro-esophageal reflux disease without esophagitis (principal); K29.50 Unspecified chronic gastritis without bleeding; K59.04 Chronic idiopathic constipation; K81.1 Chronic cholecystitis; J45.909 Unspecified asthma, uncomplicated; E55.9 Vitamin D deficiency, unspecified; G47.33 Obstructive sleep apnea (adult) (pediatric); R94.6 Abnormal results of thyroid function studies; E66.01 Morbid (severe) obesity due to excess calories; Z68.41 Body mass index [BMI] 40.0-44.9, adult; E11.9 Type 2 diabetes mellitus without complications; Z79.84 Long term (current) use of oral hypoglycemic drugs; Z79.899 Other long term (current) drug therapy
CPT/HCPCS: 43239; 82947; 88305; 88342

== ENCOUNTER 2021-05-22 10:47 | Outpatient (REF) | payer OTHER, SELFPAY ==
--- NOTE | ~2021-05-22 | XR_ITS ---
EXAMINATION: XR DORSAL SPINE CLINICAL INFORMATION: Reason for Exam M54.9 - Dorsalgia, unspecified COMPARISON: None available at the time of this dictation. TECHNIQUE: Frontal and lateral FINDINGS: There is no evidence of fracture or dislocation. The vertebral bodies maintain normal height and alignment. Narrowing of intervertebral disc spaces suggest underlying degenerative disc disease. The paravertebral soft tissues are unremarkable. XR/XR thoracic spine 2V IMPRESSION: No fracture Mild narrowing of disc spaces suggest underlying degenerative disc disease.
== END 2021-05-22 10:48 | disposition home or self-care (01) ==
LOC: HO.XRAY 10:47
PROVIDERS: PCP Internal Medicine; Referring Provider Internal Medicine; Visit Provider Nurse Practitioner
DX: M54.9 Dorsalgia, unspecified (principal); K81.1 Chronic cholecystitis; R10.11 Right upper quadrant pain; R11.2 Nausea with vomiting, unspecified; R14.0 Abdominal distension (gaseous); K21.9 Gastro-esophageal reflux disease without esophagitis; K59.04 Chronic idiopathic constipation; K82.8 Other specified diseases of gallbladder; Z79.899 Other long term (current) drug therapy
CPT/HCPCS: 72070; 99212

== ENCOUNTER 2021-06-14 08:48 | Outpatient (REF) | payer OTHER, SELFPAY ==
[2021-06-14 11:19] LABS: MANUAL DIFF FLAG NO
[2021-06-14 11:34] LABS: Basophils Percent Auto 0.3 % (0-2); Eosinophils Absolute Auto 0.1 X10*3/uL (0.0-0.4); Eosinophils Percent Auto 1.3 % (0-4); Hematocrit 42.8 % (37.0-47.0); Hemoglobin 13.5 g/dl (12.0-16.0); Imm Gran Abs Auto 0.05 X10*3/uL (0.00-0.03); Imm Gran Pct Auto 0.6 % (0.0-0.4); Lymphocytes Absolute Auto 2.5 X10*3/uL (1.2-4.9); Lymphocytes Percent Auto 27.7 % (20-40); Mean Corpuscular HGB Conc 31.5 g/dl (31.0-35.0); Mean Corpuscular Hemoglobin 30.4 pg (27.0-33.0); Mean Corpuscular Volume 96.4 fL (80.0-98.0); Monocytes Absolute Auto 0.8 X10*3/uL (0.1-1.2); Monocytes Percent Auto 8.4 % (2-11); Neutrophils Absolute Auto 5.5 x10*3/uL (2.0-8.3); Neutrophils Percent Auto 61.7 % (45-73); Platelet Count 303 X10*3/uL (160-400); Red Blood Count 4.44 X10*6/uL (4.20-5.50); Red Cell Distribution Width 13.2 % (11.0-16.0); White Blood Count 8.9 X10*3/uL (4.8-10.8)
[2021-06-14 12:04] LABS: Appearance Urine CLOUDY; Color Urine YELLOW; Glucose Urine UA NEG (NEG); Leukocyte Esterase Urine NEG (NEG); Nitrite Urine NEG (NEG); PH 5.5 (5.0-8.0); Specific Gravity - Urine >= 1.030 (1.005-1.025); Urine Blood TRACE (NEG); Urine Ketones 5 MG/DL (NEG); Urine Protein 1+ MG/DL (NEG-TRACE)
[2021-06-14 12:27] LABS: Anion Gap 13 (12-20); Blood Urea Nitrogen 11 mg/dL (9-16); Calcium 9.9 mg/dL (8.4-10.2); Carbon Dioxide 22 mmol/L (22-29); Chloride 110 mmol/L (96-108); Estimated Glomerular Filt Rate > 60; Potassium 3.8 mmol/L (3.3-5.1); Sodium 141 mmol/L (135-145)
[2021-06-14 13:18] LABS: Bacteria Urine TRACE /LPF; Mucus Urine 1+ /LPF; RBC Urine 0-2 /HPF (0); Squamous Epithelial Cell Urine TRACE /LPF; WBC Urine 0-2 /HPF (0-4)
[2021-06-14 13:19] LABS: Calcium Oxalate Crystals Urine 1+ /LPF
== END 2021-06-14 08:49 | disposition home or self-care (01) ==
LOC: HO.HMGCLDS 08:48
PROVIDERS: PCP Internal Medicine; Visit Provider Internal Medicine Nephrology
DX: N18.30 Chronic kidney disease, stage 3 unspecified (principal)
CPT/HCPCS: 36415; 80051; 81001; 81003; 82310; 82565; 84520; 85025

== ENCOUNTER 2021-07-03 08:09 | Outpatient (REF) | payer OTHER, SELFPAY ==
[2021-07-03 11:35] LABS: MANUAL DIFF FLAG NO
[2021-07-03 11:45] LABS: Basophils Percent Auto 0.3 % (0-2); Eosinophils Absolute Auto 0.1 X10*3/uL (0.0-0.4); Eosinophils Percent Auto 1.4 % (0-4); Hematocrit 42.1 % (37.0-47.0); Imm Gran Abs Auto 0.06 X10*3/uL (0.00-0.03); Imm Gran Pct Auto 0.6 % (0.0-0.4); Lymphocytes Absolute Auto 2.3 X10*3/uL (1.2-4.9); Lymphocytes Percent Auto 24.3 % (20-40); Mean Corpuscular HGB Conc 30.9 g/dl (31.0-35.0); Mean Corpuscular Hemoglobin 29.7 pg (27.0-33.0); Mean Corpuscular Volume 96.1 fL (80.0-98.0); Mean Platelet Volume 11.1 fL (9.4-12.3); Monocytes Absolute Auto 0.9 X10*3/uL (0.1-1.2); Neutrophils Absolute Auto 6.1 x10*3/uL (2.0-8.3); Neutrophils Percent Auto 64.4 % (45-73); Platelet Count 289 X10*3/uL (160-400); Red Blood Count 4.38 X10*6/uL (4.20-5.50); Red Cell Distribution Width 12.9 % (11.0-16.0); White Blood Count 9.5 X10*3/uL (4.8-10.8)
[2021-07-03 11:51] LABS: Estimated Average Glucose 143 mg/dL; Hemoglobin A1c % 6.6 %
[2021-07-03 12:05] LABS: Alanine Aminotransferase 30 U/L (0-31); Albumin Level 4.4 g/dL (3.5-5.0); Alkaline Phosphatase 115 U/L (39-117); Anion Gap 11 (12-20); Aspartate Amino Transferase 22 U/L (5-31); Bilirubin Total 0.2 mg/dL (0.0-1.0); Blood Urea Nitrogen 10 mg/dL (9-16); Calcium 9.7 mg/dL (8.4-10.2); Carbon Dioxide 23 mmol/L (22-29); Chloride 108 mmol/L (96-108); Cholesterol 166 mg/dL; Estimated Glomerular Filt Rate > 60; Glucose Fasting 154 mg/dL (60-99); HDL Cholesterol 57 mg/dL; LDL Cholesterol Calculated 74 mg/dl; Sodium 138 mmol/L (135-145); Total Protein 7.3 g/dL (6.5-8.0); Triglycerides 178 mg/dL
[2021-07-03 12:06] LABS: Appearance Urine CLOUDY; Color Urine YELLOW; Glucose Urine UA NEG (NEG); Leukocyte Esterase Urine TRACE (NEG); Nitrite Urine NEG (NEG); PH 5.5 (5.0-8.0); Specific Gravity - Urine >= 1.030 (1.005-1.025); UACC Culture Trigger YES; Urine Blood NEG (NEG); Urine Ketones 5 MG/DL (NEG); Urine Protein 1+ MG/DL (NEG-TRACE)
[2021-07-03 12:24] LABS: Creatinine Urine 336.45 mg/dL; Microalbum/Creatinine Ratio Ur 39.5 ug/mg cr
[2021-07-03 12:30] LABS: TSH reflex Free T4 5.68 uIU/mL (0.32-4.0); Vitamin D 25-OH Total 27.7 ng/mL (>30)
[2021-07-03 12:33] LABS: Bacteria Urine 3+ /LPF; Calcium Oxalate Crystals Urine 1+ /LPF; RBC Urine 0-2 /HPF (0); Squamous Epithelial Cell Urine 1+ /LPF
[2021-07-03 13:01] LABS: Free T4 (Free Thyroxine) 0.76 ng/dL (0.71-1.85)
== END 2021-07-03 08:10 | disposition home or self-care (01) ==
LOC: HO.HMGCLDS 08:09
PROVIDERS: PCP Internal Medicine; Visit Provider Internal Medicine
DX: I10 Essential (primary) hypertension (principal); E55.9 Vitamin D deficiency, unspecified; E11.9 Type 2 diabetes mellitus without complications; E78.00 Pure hypercholesterolemia, unspecified
CPT/HCPCS: 36415; 80053; 80061; 81001; 81003; 82043; 82306; 83036; 84439; 84443; 85025; 87086

== ENCOUNTER 2021-07-20 12:28 | Outpatient (REF) | payer OTHER, SELFPAY ==
[2021-07-20 14:41] LABS: MANUAL DIFF FLAG NO
[2021-07-20 14:43] LABS: Basophils Percent Auto 0.3 % (0-2); Eosinophils Absolute Auto 0.1 X10*3/uL (0.0-0.4); Eosinophils Percent Auto 1.1 % (0-4); Hematocrit 41.2 % (37.0-47.0); Hemoglobin 12.9 g/dl (12.0-16.0); Imm Gran Abs Auto 0.08 X10*3/uL (0.00-0.03); Imm Gran Pct Auto 0.8 % (0.0-0.4); Lymphocytes Absolute Auto 1.9 X10*3/uL (1.2-4.9); Lymphocytes Percent Auto 19.8 % (20-40); Mean Corpuscular HGB Conc 31.3 g/dl (31.0-35.0); Mean Corpuscular Hemoglobin 30.3 pg (27.0-33.0); Mean Corpuscular Volume 96.7 fL (80.0-98.0); Mean Platelet Volume 10.3 fL (9.4-12.3); Monocytes Absolute Auto 0.8 X10*3/uL (0.1-1.2); Monocytes Percent Auto 7.9 % (2-11); Neutrophils Absolute Auto 6.7 x10*3/uL (2.0-8.3); Neutrophils Percent Auto 70.1 % (45-73); Platelet Count 259 X10*3/uL (160-400); Red Blood Count 4.26 X10*6/uL (4.20-5.50); Red Cell Distribution Width 13.2 % (11.0-16.0); White Blood Count 9.6 X10*3/uL (4.8-10.8)
[2021-07-20 15:01] LABS: Alanine Aminotransferase 24 U/L (0-31); Alkaline Phosphatase 114 U/L (39-117); Anion Gap 14 (12-20); Aspartate Amino Transferase 24 U/L (5-31); Bilirubin Total < 0.2 mg/dL (0.0-1.0); Blood Urea Nitrogen 13 mg/dL (9-16); C Reactive Protein 0.75 mg/dL (< or = 0.50); Calcium 10.1 mg/dL (8.4-10.2); Carbon Dioxide 21 mmol/L (22-29); Chloride 108 mmol/L (96-108); Estimated Glomerular Filt Rate > 60; Glucose Random 130 mg/dL (60-115); Potassium 4.3 mmol/L (3.3-5.1); Sodium 139 mmol/L (135-145); Total Protein 7.1 g/dL (6.5-8.0)
[2021-07-20 15:20] LABS: Ferritin 42 ng/mL (10-250); TSH reflex Free T4 3.87 uIU/mL (0.32-4.0); Vitamin D 25-OH Total 25.8 ng/mL (>30)
[2021-07-20 15:33] LABS: Folate > 20.0 ng/mL (> or = 4.0); Vitamin B12 794 pg/mL (200-900)
[2021-07-20 15:36] LABS: Appearance Urine HAZY; Color Urine YELLOW; Glucose Urine UA NEG (NEG); Leukocyte Esterase Urine NEG (NEG); Nitrite Urine NEG (NEG); PH 5.5 (5.0-8.0); Specific Gravity - Urine >= 1.030 (1.005-1.025); Urine Blood NEG (NEG); Urine Ketones NEG (NEG); Urine Protein NEG (NEG-TRACE)
[2021-07-21 15:06] LABS: IgA 252 mg/dL (47-310); IgG 947 mg/dL (600-1640); IgM 71 mg/dL (50-300)
[2021-07-24 12:46] LABS: Zinc 65 mcg/dL (60-130)
[2021-07-24 18:11] LABS: Histamine Plasma <1.5 ng/mL (< OR = 1.8)
[2021-07-24 21:32] LABS: Vitamin C 0.9 mg/dL (0.3-2.7)
[2021-07-25 14:47] LABS: Vitamin B6 14.5 ng/mL (2.1-21.7)
[2021-07-25 19:51] LABS: Alpha-Tocopherol 12.9 mg/L (5.7-19.9); Beta-Gamma Tocopherol <1.0 mg/L (<=4.3)
[2021-07-26 01:17] LABS: Vitamin A 56 mcg/dL (38-98)
[2021-07-27 12:17] LABS: Nicotinamide <20 ng/mL; Vit B3 - Nicotinic Acid <20 ng/mL
[2021-07-28 22:57] LABS: Vitamin K1 314 pg/mL (130-1500)
[2021-07-30 14:46] LABS: Vitamin B5 (Pantothenic Acid) 78 ng/mL (<275)
== END 2021-07-20 12:29 | disposition home or self-care (01) ==
LOC: HO.LAB 12:28
PROVIDERS: PCP Internal Medicine; Referring Provider Nurse Practitioner; Visit Provider Internal Medicine Gastroenterology
DX: R10.11 Right upper quadrant pain (principal); R30.0 Dysuria; K75.81 Nonalcoholic steatohepatitis (NASH); K59.04 Chronic idiopathic constipation; R11.2 Nausea with vomiting, unspecified; K82.8 Other specified diseases of gallbladder; M54.9 Dorsalgia, unspecified
CPT/HCPCS: 36415; 80053; 81003; 82180; 82306; 82607; 82728; 82746; 82784; 83088; 83520; 84207; 84443; 84446; 84590; 84591; 84597; 84630; 85025; 86003; 86140; 99212

== ENCOUNTER 2021-07-25 13:19 | Outpatient (REF) | payer OTHER, SELFPAY ==
[2021-07-31 23:16] LABS: Pancreatic Elastase-1 16 mcg/g
== END 2021-07-25 13:20 | disposition home or self-care (01) ==
LOC: HO.LNP 13:19
PROVIDERS: Visit Provider Internal Medicine Gastroenterology
DX: R10.11 Right upper quadrant pain (principal); K59.04 Chronic idiopathic constipation; R11.2 Nausea with vomiting, unspecified; K82.8 Other specified diseases of gallbladder
CPT/HCPCS: 82656

== ENCOUNTER 2021-08-06 12:22 | Outpatient (REF) | payer OTHER, SELFPAY ==
--- NOTE | ~2021-08-06 | MM_ITS ---
EXAMINATION: MM SCREENING DIGITAL BREAST TOMOSYNTHESIS, BILATERAL CLINICAL INFORMATION: Screening. Asymptomatic. The lifetime risk of breast cancer based on the Tyrer-Cuzick Model is 7%. COMPARISON: Mammography: 06/26/2020, 06/21/2019, 12/16/2018, 06/18/2018, 06/15/2018 TECHNIQUE: Digital breast tomosynthesis is performed in both the craniocaudal and mediolateral oblique views along with computer-aided detection (CAD). Synthesized 2D images are generated from the tomosynthesis. Additional right MLO view is provided. FINDINGS: There are scattered areas of fibroglandular density (ACR BI-RADS breast composition Category b). There are no significant masses, abnormal calcifications, or other abnormalities. Parenchymal pattern is similar to prior studies. There is no developing density or architectural abnormality. The axilla and skin contours are unremarkable. No significant changes. MM/MM tomosynthesis screening BI IMPRESSION: No mammographic evidence of malignancy. ASSESSMENT: BI-RADS 1: Negative RECOMMENDATION: Routine annual mammography screening. This patient's information was entered into a reminder system with a target due date for their next mammogram.
== END 2021-08-06 12:23 | disposition home or self-care (01) ==
LOC: HO.MAMMO 12:22
PROVIDERS: PCP Internal Medicine; Visit Provider Internal Medicine
DX: Z12.31 Encounter for screening mammogram for malignant neoplasm of breast (principal)
CPT/HCPCS: 77063; 77067

== ENCOUNTER 2021-08-09 09:12 | Outpatient (REF) | payer OTHER, SELFPAY ==
[2021-08-18 18:17] LABS: Lactoferrin, Fecal, Quant. <30.0 mcg/mL
[2021-08-24 08:27] LABS: Prostaglandin D2 Random Urine 672 ng/liter
== END 2021-08-09 09:13 | disposition home or self-care (01) ==
LOC: HO.LAB 09:12
PROVIDERS: PCP Internal Medicine; Visit Provider Internal Medicine Gastroenterology
DX: R19.7 Diarrhea, unspecified (principal)
CPT/HCPCS: 36415; 83520; 83631; 84150

== ENCOUNTER 2021-08-14 08:28 | Outpatient (REF) | payer OTHER, SELFPAY ==
--- NOTE | ~2021-08-14 | CT_ITS ---
EXAMINATION: CT ENTEROGRAPHY ABDOMEN AND PELVIS WITH CONTRAST CLINICAL INFORMATION: Periumbilical pain COMPARISON: Previous MR of the abdomen November 2020 and ultrasound of the abdomen September 2020 TECHNIQUE: Study performed with oral VoLumen (1350 mL) and 480 mL of water to distend the abdomen. The patient was injected with 85 mL Omnipaque 350 intravenous contrast which was administered without adverse effect. Coronal and sagittal reformatted images were obtained at the technologist's workstation. This CT examination was performed using dose optimization techniques as appropriate, variously including the following: *Automated exposure control *Adjustment of mA and/or kV according to patient size (this includes techniques or standardized protocols for targeted exams where dose is matched to indication/reason for exam; i.e. extremities or head) *Use of iterative reconstruction technique DLP: 732 mGy-cm FINDINGS: GASTROINTESTINAL FINDINGS: Stomach: Well-distended and normal in appearance. Small intestine: Satisfactorily distended and normal in appearance. Large intestine: Well-distended and normal in appearance. No perirectal changes demonstrated. The appendix is normal. Additional findings: No abnormal enhancement of the vasa recta or significant mesenteric or retroperitoneal lymphadenopathy is seen. No abdominal abscess or fistulous tract demonstrated. ABDOMINAL AND PELVIC CT FINDINGS: Liver, gallbladder, biliary tract: The liver is low in attenuation suggestive of fatty infiltration. Liver and gallbladder are otherwise normal. Pancreas: Normal Spleen: Normal Adrenal glands and kidneys: The adrenal glands are normal. The right kidney is normal. There is a 5 cm left renal cyst. Hounsfield units following IV contrast measure 24 suggestive of a minimally complex cyst. This does not appear appreciably changed in size from previous MRI. Is a small 3 mm stone in the lower pole of the left kidney. Kidneys are otherwise normal. Ureters and bladder: Unremarkable Lymphovascular structures: Unremarkable Bones: There is degenerative disc disease at L5-S1. Lung bases: Unremarkable CT/CT enterography IMPRESSION: Fatty liver. Stable slightly complex left renal cyst. Small left renal stone. Otherwise unremarkable exam.
[2021-08-14] MEDS: Sorbitol/Mannit/Xanth Imaging 500 ML LIQUID 1500 ML PO (10:21)
[2021-08-14] MEDS: iohexoL 350 MG/ML 100 ML INFUS..BTL IV (10:22)
== END 2021-08-14 08:29 | disposition home or self-care (01) ==
LOC: HO.CT 08:28
PROVIDERS: Visit Provider Internal Medicine Gastroenterology
DX: R10.33 Periumbilical pain (principal); R10.11 Right upper quadrant pain; K59.04 Chronic idiopathic constipation; K82.8 Other specified diseases of gallbladder; R11.2 Nausea with vomiting, unspecified
CPT/HCPCS: 74177; Q9967

== ENCOUNTER → 2021-08-21 09:40 | Outpatient (BNVA) | payer OTHER, SELFPAY | PROVIDERS: PCP Internal Medicine; Visit Provider Nurse Practitioner Family | DX: M47.816 Spondylosis without myelopathy or radiculopathy, lumbar region (principal); M53.3 Sacrococcygeal disorders, not elsewhere classified; M51.37 Other intervertebral disc degeneration, lumbosacral region; R10.9 Unspecified abdominal pain | CPT/HCPCS: 99202 ==

== ENCOUNTER 2021-09-14 15:35 | Outpatient (REF) | payer OTHER, SELFPAY ==
--- NOTE | ~2021-09-14 | MR_ITS ---
EXAMINATION: MR LUMBAR SPINE WITHOUT CONTRAST CLINICAL INFORMATION: Spondylosis without myelopathy or radiculopathy. COMPARISON: None TECHNIQUE: MRI of the lumbar spine was obtained using routine sequences without contrast. FINDINGS: Lumbar vertebral bodies maintain normal heights. There is severe disc height loss at L5-S1 with mild subchondral endplate edema. The remainder the disc heights are preserved. The distal spinal cord appears normal. The conus medullaris terminates normally at the L2 level. A small filar lipoma is noted. There is a prominent left-sided renal cyst. The extraspinal soft tissues are otherwise unremarkable. SPINAL LEVELS: L1-L2: No posterior disc abnormality. No spinal canal or neural foraminal stenosis. L2-L3: No posterior disc abnormality. No spinal canal or neural foraminal stenosis. L3-L4: No posterior disc abnormality. No spinal canal or neural foraminal stenosis. L4-L5: No posterior disc abnormality. Mild facet arthropathy with increased fluid in the facet joints. No spinal canal or neural foraminal stenosis. L5-S1: Severe disc height loss with diffuse disc bulging causing flattening of the ventral thecal sac and encroachment on the subarticular zones. Mild facet arthropathy. Mild bilateral neural foraminal stenosis with bulging disc seen abutting both foraminal L5 nerve root segments. MR/MR lumbar spine wo con IMPRESSION: At L5-S1 there is severe disc height loss with mild subchondral endplate edema. Bulging disc flattens the ventral thecal sac with encroachment on the subarticular zones and abutment of both exiting L5 nerve roots. Remainder of the lumbar disc levels are unremarkable.
== END 2021-09-14 15:36 | disposition home or self-care (01) ==
LOC: HO.MRI 15:35
PROVIDERS: Visit Provider Nurse Practitioner Family
DX: M47.816 Spondylosis without myelopathy or radiculopathy, lumbar region (principal); M51.27 Other intervertebral disc displacement, lumbosacral region
CPT/HCPCS: 72148

== ENCOUNTER 2021-09-17 17:05 | Outpatient (REF) | payer OTHER, SELFPAY ==
[2021-09-17 19:34] LABS: Leukocytes Stool Qualitative NEGATIVE (NEGATIVE)
[2021-09-18 10:49] LABS: CDiff Gene PCR POSITIVE (Negative)
[2021-09-18 13:10] LABS: CDIFF Internal ctrl Dots and bkg OK (V); CDiff Toxin Negative (Negative)
== END 2021-09-17 17:06 | disposition home or self-care (01) ==
LOC: HO.LNP 17:05
PROVIDERS: Visit Provider Nurse Practitioner Family
DX: R19.7 Diarrhea, unspecified (principal)
CPT/HCPCS: 87045; 87046; 87324; 87493; 89055

== ENCOUNTER → 2021-09-28 12:07 | Outpatient (BNVA) | payer OTHER, SELFPAY | PROVIDERS: PCP Internal Medicine; Visit Provider Internal Medicine Gastroenterology | DX: A04.72 Enterocolitis due to Clostridium difficile, not specified as recurrent (principal); N83.209 Unspecified ovarian cyst, unspecified side | CPT/HCPCS: 99212 ==

== ENCOUNTER 2021-10-03 08:09 | Outpatient (REF) | payer OTHER, SELFPAY ==
[2021-10-03 11:23] LABS: MANUAL DIFF FLAG NO
[2021-10-03 11:37] LABS: Appearance Urine CLEAR; Color Urine YELLOW; Glucose Urine UA NEG (NEG); Leukocyte Esterase Urine NEG (NEG); Nitrite Urine NEG (NEG); PH 6.5 (5.0-8.0); Specific Gravity - Urine <= 1.005 (1.005-1.025); Urine Blood NEG (NEG); Urine Ketones NEG (NEG); Urine Protein NEG (NEG-TRACE)
[2021-10-03 11:43] LABS: Basophils Percent Auto 0.4 % (0-2); Eosinophils Absolute Auto 0.2 X10*3/uL (0.0-0.4); Eosinophils Percent Auto 2.5 % (0-4); Hematocrit 39.6 % (37.0-47.0); Hemoglobin 12.3 g/dl (12.0-16.0); Imm Gran Abs Auto 0.05 X10*3/uL (0.00-0.03); Imm Gran Pct Auto 0.5 % (0.0-0.4); Lymphocytes Absolute Auto 2.3 X10*3/uL (1.2-4.9); Lymphocytes Percent Auto 24.5 % (20-40); Mean Corpuscular HGB Conc 31.1 g/dl (31.0-35.0); Mean Corpuscular Hemoglobin 30.1 pg (27.0-33.0); Mean Corpuscular Volume 97.1 fL (80.0-98.0); Mean Platelet Volume 11.5 fL (9.4-12.3); Monocytes Absolute Auto 0.7 X10*3/uL (0.1-1.2); Monocytes Percent Auto 7.1 % (2-11); Neutrophils Absolute Auto 6.1 x10*3/uL (2.0-8.3); Platelet Count 264 X10*3/uL (160-400); Red Blood Count 4.08 X10*6/uL (4.20-5.50); White Blood Count 9.4 X10*3/uL (4.8-10.8)
[2021-10-03 11:44] LABS: Estimated Average Glucose 151 mg/dL; Hemoglobin A1c % 6.9 %
[2021-10-03 12:07] LABS: Creatinine Urine 40.05 mg/dL; Microalbumin Urine < 5.0 mg/L
[2021-10-03 12:21] LABS: TSH reflex Free T4 2.52 uIU/mL (0.32-4.0); Vitamin D 25-OH Total 32.6 ng/mL (>30)
[2021-10-03 12:24] LABS: Alanine Aminotransferase 19 U/L (0-31); Albumin Level 3.9 g/dL (3.5-5.0); Alkaline Phosphatase 114 U/L (39-117); Anion Gap 10 (12-20); Aspartate Amino Transferase 16 U/L (5-31); Bilirubin Total 0.4 mg/dL (0.0-1.0); Blood Urea Nitrogen 9 mg/dL (9-16); Calcium 9.6 mg/dL (8.4-10.2); Carbon Dioxide 24 mmol/L (22-29); Chloride 107 mmol/L (96-108); Cholesterol 150 mg/dL; Estimated Glomerular Filt Rate > 60; Glucose Fasting 162 mg/dL (60-99); HDL Cholesterol 45 mg/dL; LDL Cholesterol Calculated 67 mg/dl; Potassium 4.8 mmol/L (3.3-5.1); Sodium 136 mmol/L (135-145); Total Protein 6.6 g/dL (6.5-8.0); Triglycerides 191 mg/dL
== END 2021-10-03 08:10 | disposition home or self-care (01) ==
LOC: HO.HMGCLDS 08:09
PROVIDERS: Visit Provider Internal Medicine
DX: E11.9 Type 2 diabetes mellitus without complications (principal); I10 Essential (primary) hypertension; E78.00 Pure hypercholesterolemia, unspecified; E55.9 Vitamin D deficiency, unspecified
CPT/HCPCS: 36415; 80053; 80061; 81003; 82043; 82306; 83036; 84443; 85025

== ENCOUNTER 2021-10-11 12:46 | Outpatient (REF) | payer OTHER, SELFPAY ==
--- NOTE | ~2021-10-11 | US_ITS ---
EXAMINATION: US DIAGNOSTIC ULTRASOUND BREAST, LEFT CLINICAL INFORMATION: 45-year-old with one-month history pain outer left breast. No palpable mass or discharge. Recent mammography unremarkable. TC score 7%. COMPARISON: Mammography 08/06/2021, 12/16/2018; targeted left breast ultrasound 12/16/2018. TECHNIQUE: Ultrasound left breast is targeted to the area of clinical concern. Patient is able to direct attention to the area of symptoms at time of imaging. Grayscale imaging and color Doppler are performed without and with harmonics. FINDINGS: There is no cystic or solid mass or architectural abnormality. No skin thickening or edema tracking in soft tissue planes. No hyperemia. Results are discussed with the patient at time of visit. US/US breast LT limited IMPRESSION: Normal study. ASSESSMENT: BI-RADS 1: Negative RECOMMENDATION: 1. Patient's left breast pain should be managed based on the clinical impression. 2. Otherwise, routine annual screening mammography. This patient's information was entered into a reminder system with a target due date for their next mammogram.
== END 2021-10-11 12:47 | disposition home or self-care (01) ==
LOC: HO.MAMMO 12:46
PROVIDERS: Visit Provider Internal Medicine
DX: N64.4 Mastodynia (principal)
CPT/HCPCS: 76642

== ENCOUNTER 2021-12-25 07:32 | Outpatient (REF) | payer OTHER, SELFPAY ==
[2021-12-25 11:40] LABS: Appearance Urine CLOUDY; Color Urine YELLOW; Glucose Urine UA NEG (NEG); Leukocyte Esterase Urine TRACE (NEG); Nitrite Urine NEG (NEG); Specific Gravity - Urine 1.025 (1.005-1.025); Urine Blood NEG (NEG); Urine Ketones 5 MG/DL (NEG); Urine Protein TRACE MG/DL (NEG-TRACE)
[2021-12-25 11:49] LABS: MANUAL DIFF FLAG NO
[2021-12-25 11:58] LABS: Basophils Percent Auto 0.4 % (0-2); Eosinophils Absolute Auto 0.1 X10*3/uL (0.0-0.4); Eosinophils Percent Auto 1.2 % (0-4); Hematocrit 39.6 % (37.0-47.0); Hemoglobin 12.6 g/dl (12.0-16.0); Imm Gran Abs Auto 0.05 X10*3/uL (0.00-0.03); Imm Gran Pct Auto 0.5 % (0.0-0.4); Lymphocytes Absolute Auto 2.6 X10*3/uL (1.2-4.9); Lymphocytes Percent Auto 25.4 % (20-40); Mean Corpuscular HGB Conc 31.8 g/dl (31.0-35.0); Mean Corpuscular Hemoglobin 30.3 pg (27.0-33.0); Mean Corpuscular Volume 95.2 fL (80.0-98.0); Mean Platelet Volume 11.2 fL (9.4-12.3); Monocytes Absolute Auto 0.7 X10*3/uL (0.1-1.2); Monocytes Percent Auto 7.1 % (2-11); Neutrophils Absolute Auto 6.6 x10*3/uL (2.0-8.3); Neutrophils Percent Auto 65.4 % (45-73); Platelet Count 275 X10*3/uL (160-400); Red Blood Count 4.16 X10*6/uL (4.20-5.50); Red Cell Distribution Width 13.2 % (11.0-16.0); White Blood Count 10.2 X10*3/uL (4.8-10.8)
[2021-12-25 12:13] LABS: Alanine Aminotransferase 19 U/L (0-31); Albumin Level 4.1 g/dL (3.5-5.0); Alkaline Phosphatase 122 U/L (39-117); Anion Gap 12 (12-20); Aspartate Amino Transferase 18 U/L (5-31); Bilirubin Total 0.5 mg/dL (0.0-1.0); Blood Urea Nitrogen 14 mg/dL (9-16); Carbon Dioxide 23 mmol/L (22-29); Chloride 105 mmol/L (96-108); Cholesterol 154 mg/dL; Estimated Glomerular Filt Rate > 60; Glucose Fasting 146 mg/dL (60-99); HDL Cholesterol 50 mg/dL; LDL Cholesterol Calculated 69 mg/dl; Potassium 3.5 mmol/L (3.3-5.1); Sodium 136 mmol/L (135-145); Total Protein 7.1 g/dL (6.5-8.0); Triglycerides 176 mg/dL
[2021-12-25 12:17] LABS: Amorphous Sediment Urine 1+ /LPF; Bacteria Urine 1+ /LPF; Calcium Oxalate Crystals Urine 1+ /LPF; Mucus Urine 1+ /LPF; RBC Urine 0 /HPF (0); Squamous Epithelial Cell Urine 1+ /LPF; WBC Urine 0-2 /HPF (0-4)
[2021-12-25 12:23] LABS: Estimated Average Glucose 140 mg/dL; Hemoglobin A1c % 6.5 %
[2021-12-25 12:24] LABS: TSH reflex Free T4 5.44 uIU/mL (0.32-4.0); Vitamin D 25-OH Total 29.8 ng/mL (>30)
[2021-12-25 12:44] LABS: Creatinine Urine 257.55 mg/dL; Microalbum/Creatinine Ratio Ur 12.4 ug/mg cr
[2021-12-25 13:01] LABS: Free T4 (Free Thyroxine) 0.81 ng/dL (0.71-1.85)
== END 2021-12-25 07:33 | disposition home or self-care (01) ==
LOC: HO.HMGCLDS 07:32
PROVIDERS: Visit Provider Internal Medicine
DX: I10 Essential (primary) hypertension (principal); E78.00 Pure hypercholesterolemia, unspecified; E11.9 Type 2 diabetes mellitus without complications; E55.9 Vitamin D deficiency, unspecified
CPT/HCPCS: 36415; 80053; 80061; 81001; 82043; 82306; 83036; 84439; 84443; 85025

== ENCOUNTER → 2022-02-19 11:56 | Outpatient (BNVA) | payer OTHER, SELFPAY | PROVIDERS: PCP Internal Medicine; Visit Provider Urology | DX: N28.1 Cyst of kidney, acquired (principal) | CPT/HCPCS: 99202 ==

== ENCOUNTER → 2022-03-27 09:18 | Outpatient (BNVA) | payer OTHER, SELFPAY | PROVIDERS: PCP Internal Medicine; Referring Provider Internal Medicine; Visit Provider Internal Medicine | DX: R07.2 Precordial pain (principal); R06.02 Shortness of breath; E66.9 Obesity, unspecified; Z68.38 Body mass index [BMI] 38.0-38.9, adult; E11.9 Type 2 diabetes mellitus without complications; I10 Essential (primary) hypertension; E78.00 Pure hypercholesterolemia, unspecified; G47.33 Obstructive sleep apnea (adult) (pediatric); Z79.84 Long term (current) use of oral hypoglycemic drugs; Z99.89 Dependence on other enabling machines and devices | CPT/HCPCS: 93005; 99202 ==

== ENCOUNTER → 2022-04-03 08:43 | Outpatient (REF) | payer OTHER, SELFPAY ==
--- NOTE | 2022-04-03 08:45 | CA_ITS ---
Acquisition Time: 2022-04-03 08:49:27 Total Exercise Time: 00:04:40 Test Indications: PRECORDIAL PAIN Medications: Protocol: NOMI Max HR: 108 BPM 61% of Pred: 175 BPM Max BP: 146/092 mmHG Max Work Load: 6.6 METS Exercise stress test with exercise 4 min 40 sec of Nomi protocol, achieving 60% MPHR with request to stop due to 8/10 mid chest pressure, without arrythmia, with normotensive response to exercise, with nondiagnostic EKG for ischemia due to suboptimal heart rate. In recovery her chest discomfort gradually improved and resolved. Will order a pharmacological nuclear stress test for further evaluation. Test reviewed with Dr Jarrett Referred By: David Grant Overread By: MARIA T MASSEY
== END ==
LOC: HO.CARD 08:43
PROVIDERS: PCP Internal Medicine; Visit Provider Internal Medicine
DX: R07.2 Precordial pain (principal)
CPT/HCPCS: 93017

== ENCOUNTER → 2022-04-16 08:18 | Outpatient (REF) | payer OTHER, SELFPAY ==
--- NOTE | 2022-04-16 08:21 | CA_ITS ---
Transthoracic Echocardiogram Patient (Last, First, Middle): Ute Goldberg, Gender: Female Date of : 1975 Age: 46 Procedure Date: 04/16/2022 Procedure Type: Transthoracic Echocardiogram Location: OP Height: 162.56 cm Weight: 102.06 kg BSA: 2.06 m2 Heart Rate: 74 bpm BP: 120 / 60 mmHg Assembler Erector: SB Referring MD: David Grant MD Symptoms: R06.02 - Shortness of breath Study Quality: Adequate ECG Rhythm: Sinus Conclusions: - The left ventricular systolic function is normal. The calculated ejection fraction is 70% by biplane method. - No obvious valvular pathology seen on this study. Findings Left Ventricle Normal left ventricular cavity size. There is normal left ventricular wall thickness. The left ventricular systolic function is normal. The calculated ejection fraction is 70% by biplane method. There is no evidence of regional wall motion abnormalities. Diastolic function is normal for age. LV peak GLS -20.1%. Right Ventricle Normal right ventricular cavity size and systolic function. Atria Both atria are normal in size. Aortic Valve There is a normal trileaflet aortic valve. There is no aortic valve stenosis. There is no aortic valve regurgitation. Mitral Valve The mitral valve appears normal. There is no mitral valve regurgitation. There is no mitral valve stenosis. Pulmonic Valve The pulmonic valve is likely normal. Tricuspid Valve Normal tricuspid valve structure. There is trace tricuspid valve regurgitation. There is no evidence of pulmonary hypertension. Great Vessels The aortic annulus, sinuses of valsalva, and asc aorta are normal in size. Venous The inferior vena cava is normal in size and collapses greater than 50% with inspiration. Pericardium/Pleural There is no evidence of pericardial effusion. Prior Study Comparison No significant change compared to prior study dated: 03/25/2011. Recommendations, Care & Conclusions No obvious valvular pathology seen on this study. Measurements 2D Linear Measurements IVSd: 0.79 0.6-0.9/0.6-1.0 cm LVIDd: 4.51 3.9-5.3/4.2-5.9 cm LVIDd Index: 2.19 2.4-3.2/2.2-3.1 cm/m2 LVIDs: 2.96 2.0-3.6 cm LVPWd: 0.74 0.7-1.1 cm LA Diam: 3.50 2.7-3.8/3.0-4.0 cm LAIDs Index: 1.70 1.5-2.3 cm/m2 LV Mass: 133.08 67-162/88-224 g LV Mass Index: 64.60 43-95/49-115 g/m2 LVOT Diam: 2.20 3.0+(-)1.3 cm 2D Systolic Function EF 4C: 73.80 >55% EF 2C: 64.80 >55% EF BiP: 69.50 >55% Mitral Valve MV Pk E: 0.81 MV PK A: 0.74 MV Decel Time: 201.00 E/A: 1.10 E'Lateral: 7.83 E'Medial: 9.25 E/E' Med: 8.70 E/E' Lat: 10.30 PHT: 59.00 MVA PHT: 3.73 Decel [place]: 4.01 Aortic Valve AoV Pk Tramaine: 1.09 AoV Pk Grad: 5.00 LVOT LVOT Pk Tramaine: 0.94 LVOT Mn Tramaine: 0.62 LVOT VTI: 0.19 LVOT Pk Grad: 4.00 LVOT Mn Grad: 2.00 LVOT Diam: 2.20 LVOT Area: 3.80 Diastolic Function MV Pk E: 0.81 MV Pk A: 0.74 E/A: 1.10 E'Medial: 9.25 E/E' Med: 8.70 E' Laterial: 7.83 E/E' Lat: 10.30 Right Ventricle TAPSE (mm): 23.80 TVS' Tramaine: 11.20 Tricuspid Valve TR Pk Tramaine: 1.74 TR Pk Grad: 12.00 RA Press: 3.00 RVSP: 15.00 Great Vessels Aorta Sinus of Valsalva: 3.00 2.0-3.5 cm Ao Asc: 2.90 2.1-3.4 cm Pulmonary Veins Pulm Vein S/D 1.50 Pulmonary Valve PV Pk Tramaine: 0.94 Peak PV Grad: 4.00 Updated in Other Vendor System with Status of Final David Grant MD electronically signed on 04/16/2022 3:47:38 PM with status of Final
== END ==
LOC: HO.CARD 08:18
PROVIDERS: Visit Provider Internal Medicine Cardiovascular Disease
DX: R06.02 Shortness of breath (principal)
CPT/HCPCS: 93306; 93356

== ENCOUNTER → 2022-04-25 08:25 | Outpatient (REF) | payer OTHER, SELFPAY ==
--- NOTE | ~2022-04-25 | NM_ITS ---
Myocardial perfusion study Indication: Shortness of breath and chest pain with abnormal stress test Technique: The patient was brought in for a Lexiscan perfusion study on 04/25/2022. Patient performed low-level exercise and was injected 0.4 mg of Lexiscan intravenously. Within a minute of injection, 35 mCi of sestamibi was given intravenously. Images were obtained using the SPECT gamma camera interlaced with the gating device. Images were obtained in supine position. Resting perfusion study was performed on 04/26/2002. Patient was administered 35 mCi of sestamibi intravenously at rest. Images were then obtained in supine position. Images obtained with and without CT attenuation. Total DLP 149 mGy-cm. Images were processed with the software and compared side to side in short axis, horizontal long axis and vertical long axis views. Findings: The stress perfusion study showed non attenuated images show mildly reduced uptake and thinning of the distal lateral as well as apical as well as inferoapical wall of the LV myocardium. Is also mildly reduced uptake in the mid and basal inferolateral wall of the LV myocardium. Attenuation corrected images show mildly reduced uptake in the distal anterior and apex of the LV myocardium.. The gated study shows normal LV systolic function with calculated LVEF of 74%. LV cavity is normal in size. The gated study shows normal systolic wall thickening and contraction of segments. Resting study shows non attenuated images show improved uptake in the distal lateral and apical and inferoapical wall of myocardium. Attenuation corrected images show improved uptake in apical. Gating at rest reveals normal systolic wall motion with ejection fraction at greater than 60%. The findings are consistent with reversible defect of mild intensity distal lateral, apical and inferoapical wall of the LV myocardium suggestive of ischemia. NM/NM jimmy perf SPECT rest & str Impression: 1. Myocardial perfusion imaging study shows distal lateral, apical and inferoapical ischemia 2. Gated LVEF is 74% 3. Transient ischemic dilatation not present EKG is nondiagnostic for ischemia
--- NOTE | 2022-04-25 08:28 | CA_ITS ---
Acquisition Time: 2022-04-25 08:27:50 Total Exercise Time: 00:02:00 Test Indications: CP, SOB Medications: SEE CHART Protocol: LEXISCAN Max HR: 086 BPM 49% of Pred: 175 BPM Max BP: 106/066 mmHG Max Work Load: 1.0 METS Pharmacological stress test with Lexiscan injection, while sitting and kicking her legs, without anginal symptoms, without arrythmia, with normtensive response to injection, with nondiagnostic EKG for ischemia. In recovery she reported lightheadedness that was treated with Aminophylline 75mg IVP to reverse Lexiscan with resolution of symptom. Nuclear images pending. Test reviewed with Dr Jarrett. Referred By: Heidy Maldonado Overread By: HEIDY MALDONADO
== END ==
LOC: HO.CARD 08:25
PROVIDERS: Visit Provider Nurse Practitioner Family
DX: R07.2 Precordial pain (principal); R06.02 Shortness of breath; R94.39 Abnormal result of other cardiovascular function study
CPT/HCPCS: 78452; 93017; A9500; J0280; J2785

== ENCOUNTER 2022-05-07 08:40 | Outpatient (REF) | payer OTHER, SELFPAY ==
[2022-05-07 11:37] LABS: MANUAL DIFF FLAG NO
[2022-05-07 11:51] LABS: Basophils Percent Auto 0.5 % (0-2); Eosinophils Absolute Auto 0.1 X10*3/uL (0.0-0.4); Eosinophils Percent Auto 1.2 % (0-4); Imm Gran Abs Auto 0.03 X10*3/uL (0.00-0.03); Imm Gran Pct Auto 0.4 % (0.0-0.4); Lymphocytes Absolute Auto 2.4 X10*3/uL (1.2-4.9); Lymphocytes Percent Auto 30.9 % (20-40); Mean Corpuscular HGB Conc 31.7 g/dl (31.0-35.0); Mean Corpuscular Hemoglobin 30.2 pg (27.0-33.0); Mean Corpuscular Volume 95.3 fL (80.0-98.0); Mean Platelet Volume 10.9 fL (9.4-12.3); Monocytes Absolute Auto 0.6 X10*3/uL (0.1-1.2); Monocytes Percent Auto 7.7 % (2-11); Neutrophils Absolute Auto 4.6 x10*3/uL (2.0-8.3); Neutrophils Percent Auto 59.3 % (45-73); Platelet Count 284 X10*3/uL (160-400); Red Cell Distribution Width 13.2 % (11.0-16.0); White Blood Count 7.8 X10*3/uL (4.8-10.8)
[2022-05-07 12:14] LABS: Appearance Urine Clear; Color Urine Yellow; Glucose Urine UA Negative (Negative); Leukocyte Esterase Urine Negative (Negative); Nitrite Urine Negative (Negative); PH 7.5 (5.0-9.0); Urine Blood Negative (Negative); Urine Ketones Negative (Negative); Urine Protein Negative (Neg-Trace)
[2022-05-07 12:25] LABS: Alanine Aminotransferase 15 U/L (0-31); Alkaline Phosphatase 121 U/L (39-117); Anion Gap 14 (12-20); Aspartate Amino Transferase 16 U/L (5-31); Bilirubin Total 0.2 mg/dL (0.0-1.0); Blood Urea Nitrogen 11 mg/dL (9-16); Calcium 9.1 mg/dL (8.4-10.2); Carbon Dioxide 23 mmol/L (22-29); Chloride 106 mmol/L (96-108); Cholesterol 169 mg/dL; Estimated Glomerular Filt Rate > 60; Glucose Fasting 149 mg/dL (60-99); HDL Cholesterol 53 mg/dL; LDL Cholesterol Calculated 78 mg/dl; Potassium 4.5 mmol/L (3.3-5.1); Sodium 138 mmol/L (135-145); Total Protein 6.9 g/dL (6.5-8.0); Triglycerides 190 mg/dL
[2022-05-07 12:28] LABS: Estimated Average Glucose 151 mg/dL; Hemoglobin A1c % 6.9 %
[2022-05-07 12:51] LABS: Free T4 (Free Thyroxine) 0.87 ng/dL (0.71-1.85); Vitamin D 25-OH Total 27.9 ng/mL (>30)
[2022-05-07 13:03] LABS: Creatinine Urine 55.73 mg/dL; Microalbumin Urine < 5.0 mg/L
== END 2022-05-07 08:41 | disposition home or self-care (01) ==
LOC: HO.HMGCLDS 08:40
PROVIDERS: PCP Internal Medicine; Visit Provider Internal Medicine
DX: E03.9 Hypothyroidism, unspecified (principal); I10 Essential (primary) hypertension; E78.00 Pure hypercholesterolemia, unspecified; E11.9 Type 2 diabetes mellitus without complications; E55.9 Vitamin D deficiency, unspecified
CPT/HCPCS: 36415; 80053; 80061; 81003; 82043; 82306; 83036; 84439; 84443; 85025

== ENCOUNTER → 2022-05-14 13:53 | Outpatient (BNVA) | payer OTHER, SELFPAY | PROVIDERS: PCP Internal Medicine; Referring Provider Internal Medicine; Visit Provider Nurse Practitioner Family | DX: R94.39 Abnormal result of other cardiovascular function study (principal); R06.02 Shortness of breath; R07.2 Precordial pain; I10 Essential (primary) hypertension; E78.00 Pure hypercholesterolemia, unspecified; E11.9 Type 2 diabetes mellitus without complications | CPT/HCPCS: 99212 ==

== ENCOUNTER 2022-05-27 08:52 | Outpatient (REF) | payer OTHER, SELFPAY ==
[2022-05-27 11:14] LABS: MANUAL DIFF FLAG NO
[2022-05-27 11:25] LABS: Basophils Percent Auto 0.4 % (0-2); Eosinophils Absolute Auto 0.1 X10*3/uL (0.0-0.4); Eosinophils Percent Auto 0.9 % (0-4); Hematocrit 40.8 % (37.0-47.0); Hemoglobin 12.8 g/dl (12.0-16.0); Imm Gran Abs Auto 0.06 X10*3/uL (0.00-0.03); Imm Gran Pct Auto 0.7 % (0.0-0.4); Lymphocytes Absolute Auto 1.8 X10*3/uL (1.2-4.9); Lymphocytes Percent Auto 19.5 % (20-40); Mean Corpuscular HGB Conc 31.4 g/dl (31.0-35.0); Mean Corpuscular Hemoglobin 29.8 pg (27.0-33.0); Mean Corpuscular Volume 95.1 fL (80.0-98.0); Mean Platelet Volume 10.9 fL (9.4-12.3); Monocytes Absolute Auto 0.6 X10*3/uL (0.1-1.2); Monocytes Percent Auto 6.2 % (2-11); Neutrophils Absolute Auto 6.6 x10*3/uL (2.0-8.3); Neutrophils Percent Auto 72.3 % (45-73); Platelet Count 268 X10*3/uL (160-400); Red Blood Count 4.29 X10*6/uL (4.20-5.50); Red Cell Distribution Width 13.1 % (11.0-16.0); White Blood Count 9.1 X10*3/uL (4.8-10.8)
[2022-05-27 11:30] LABS: Prothrombin Time 11.4 SEC (10.0-13.1)
[2022-05-27 12:14] LABS: Anion Gap 14 (12-20); Blood Urea Nitrogen 13 mg/dL (9-16); Calcium 9.8 mg/dL (8.4-10.2); Carbon Dioxide 24 mmol/L (22-29); Chloride 105 mmol/L (96-108); Estimated Glomerular Filt Rate > 60; Glucose Random 119 mg/dL (60-115); Sodium 139 mmol/L (135-145)
== END 2022-05-27 08:53 | disposition home or self-care (01) ==
LOC: HO.HMGCLDS 08:52
PROVIDERS: PCP Internal Medicine; Visit Provider Nurse Practitioner Family
DX: R94.39 Abnormal result of other cardiovascular function study (principal); R06.02 Shortness of breath; R07.2 Precordial pain
CPT/HCPCS: 36415; 80048; 85025; 85610

== ENCOUNTER → 2022-06-04 08:44 | Outpatient (BNVA) | payer OTHER, SELFPAY | PROVIDERS: PCP Internal Medicine; Visit Provider Obstetrics & Gynecology | DX: N90.7 Vulvar cyst (principal) | CPT/HCPCS: 99202 ==

== ENCOUNTER → 2022-06-26 13:57 | Outpatient (BNVA) | payer OTHER, SELFPAY | PROVIDERS: PCP Internal Medicine; Referring Provider Internal Medicine; Visit Provider Nurse Practitioner Family | DX: R07.2 Precordial pain (principal); R06.02 Shortness of breath; R94.39 Abnormal result of other cardiovascular function study; I10 Essential (primary) hypertension; E78.00 Pure hypercholesterolemia, unspecified; E11.9 Type 2 diabetes mellitus without complications; Z79.84 Long term (current) use of oral hypoglycemic drugs; Z79.899 Other long term (current) drug therapy | CPT/HCPCS: 99212 ==

== ENCOUNTER 2022-08-10 09:00 | Outpatient (REF) | payer OTHER, SELFPAY ==
[2022-08-10 11:03] LABS: MANUAL DIFF FLAG NO
[2022-08-10 11:09] LABS: Basophils Percent Auto 0.4 % (0-2); Eosinophils Absolute Auto 0.1 X10*3/uL (0.0-0.4); Eosinophils Percent Auto 1.5 % (0-4); Hematocrit 40.5 % (37.0-47.0); Hemoglobin 13.1 g/dl (12.0-16.0); Imm Gran Abs Auto 0.05 X10*3/uL (0.00-0.03); Imm Gran Pct Auto 0.6 % (0.0-0.4); Lymphocytes Percent Auto 24.1 % (20-40); Mean Corpuscular HGB Conc 32.3 g/dl (31.0-35.0); Mean Corpuscular Hemoglobin 30.3 pg (27.0-33.0); Mean Corpuscular Volume 93.8 fL (80.0-98.0); Mean Platelet Volume 11.4 fL (9.4-12.3); Monocytes Absolute Auto 0.5 X10*3/uL (0.1-1.2); Monocytes Percent Auto 6.4 % (2-11); Neutrophils Absolute Auto 5.6 x10*3/uL (2.0-8.3); Platelet Count 257 X10*3/uL (160-400); Red Blood Count 4.32 X10*6/uL (4.20-5.50); Red Cell Distribution Width 12.8 % (11.0-16.0); White Blood Count 8.4 X10*3/uL (4.8-10.8)
[2022-08-10 11:11] LABS: Appearance Urine Clear; Color Urine Yellow; Glucose Urine UA Negative (Negative); Leukocyte Esterase Urine Negative (Negative); Nitrite Urine Negative (Negative); PH 7.5 (5.0-9.0); Urine Blood Negative (Negative); Urine Ketones Negative (Negative); Urine Protein Negative (Neg-Trace)
[2022-08-10 11:21] LABS: Estimated Average Glucose 163 mg/dL; Hemoglobin A1c % 7.3 %
[2022-08-10 11:32] LABS: Alanine Aminotransferase 19 U/L (0-31); Alkaline Phosphatase 114 U/L (39-117); Anion Gap 12 (12-20); Aspartate Amino Transferase 18 U/L (5-31); Bilirubin Total 0.4 mg/dL (0.0-1.0); Blood Urea Nitrogen 14 mg/dL (9-16); Calcium 9.5 mg/dL (8.4-10.2); Carbon Dioxide 22 mmol/L (22-29); Chloride 105 mmol/L (96-108); Cholesterol 187 mg/dL; Estimated Glomerular Filt Rate > 60; Glucose Fasting 190 mg/dL (60-99); HDL Cholesterol 61 mg/dL; LDL Cholesterol Calculated 98 mg/dl; Potassium 4.3 mmol/L (3.3-5.1); Sodium 135 mmol/L (135-145); Total Protein 6.9 g/dL (6.5-8.0); Triglycerides 144 mg/dL
[2022-08-10 11:40] LABS: TSH reflex Free T4 2.29 uIU/mL (0.32-4.0); Vitamin D 25-OH Total 27.3 ng/mL (>30)
[2022-08-10 11:57] LABS: Creatinine Urine 48.98 mg/dL; Microalbumin Urine < 5.0 mg/L
== END 2022-08-10 09:01 | disposition home or self-care (01) ==
LOC: HO.HMGCLDS 09:00
PROVIDERS: Absent Provider Internal Medicine; PCP Internal Medicine; Visit Provider Internal Medicine
DX: E78.00 Pure hypercholesterolemia, unspecified (principal); E55.9 Vitamin D deficiency, unspecified; R30.0 Dysuria; E11.9 Type 2 diabetes mellitus without complications; I10 Essential (primary) hypertension
CPT/HCPCS: 36415; 80053; 80061; 81003; 82043; 82306; 83036; 84443; 85025

== ENCOUNTER 2022-08-12 11:49 | Outpatient (REF) | payer OTHER, SELFPAY ==
--- NOTE | ~2022-08-12 | MM_ITS ---
EXAMINATION: MM SCREENING DIGITAL BREAST TOMOSYNTHESIS, BILATERAL CLINICAL INFORMATION: Screening. Asymptomatic. The lifetime risk of breast cancer based on the Tyrer-Cuzick Model is 8%. COMPARISON: Mammography: 08/06/2021, 06/26/2020, 06/21/2019 TECHNIQUE: Digital breast tomosynthesis is performed in both the craniocaudal and mediolateral oblique views along with computer-aided detection (CAD). Synthesized 2D images are generated from the tomosynthesis. Additional bilateral MLO views are provided. FINDINGS: There are scattered areas of fibroglandular density (ACR BI-RADS breast composition Category b). There are no significant masses, abnormal calcifications, or other abnormalities. No architectural abnormality or developing density or significant change from prior studies. The axilla are unremarkable. Skin contours are unremarkable. No significant changes from prior studies. MM/MM tomosynthesis screening BI IMPRESSION: No mammographic evidence of malignancy. ASSESSMENT: BI-RADS 1: Negative RECOMMENDATION: Routine annual mammography screening. This patient's information was entered into a reminder system with a target due date for their next mammogram.
== END 2022-08-12 11:50 | disposition home or self-care (01) ==
LOC: HO.MAMMO 11:49
PROVIDERS: PCP Internal Medicine; Visit Provider Internal Medicine
DX: Z12.31 Encounter for screening mammogram for malignant neoplasm of breast (principal)
CPT/HCPCS: 77063; 77067

== ENCOUNTER → 2022-08-23 14:41 | Outpatient (BNVA) | payer OTHER, SELFPAY | PROVIDERS: PCP Internal Medicine; Visit Provider Nurse Practitioner Family | DX: M53.3 Sacrococcygeal disorders, not elsewhere classified (principal); M51.37 Other intervertebral disc degeneration, lumbosacral region; M47.816 Spondylosis without myelopathy or radiculopathy, lumbar region; M54.16 Radiculopathy, lumbar region; E66.01 Morbid (severe) obesity due to excess calories; Z68.41 Body mass index [BMI] 40.0-44.9, adult | CPT/HCPCS: 99212 ==

== ENCOUNTER → 2022-09-02 09:52 | Outpatient (BNVA) | payer OTHER, SELFPAY | PROVIDERS: PCP Internal Medicine; Visit Provider Internal Medicine Gastroenterology | DX: K59.04 Chronic idiopathic constipation (principal); K58.9 Irritable bowel syndrome, unspecified; R14.0 Abdominal distension (gaseous); K21.9 Gastro-esophageal reflux disease without esophagitis; Z79.899 Other long term (current) drug therapy | CPT/HCPCS: 99212 ==

== ENCOUNTER → 2022-10-08 14:25 | Outpatient (BNVA) | payer OTHER, SELFPAY | PROVIDERS: PCP Internal Medicine; Visit Provider Internal Medicine | DX: J45.40 Moderate persistent asthma, uncomplicated (principal); G47.33 Obstructive sleep apnea (adult) (pediatric); J30.9 Allergic rhinitis, unspecified; E66.01 Morbid (severe) obesity due to excess calories; Z68.41 Body mass index [BMI] 40.0-44.9, adult | CPT/HCPCS: 99202 ==

== ENCOUNTER 2022-10-10 12:26 | Day surgery (SDC) | payer OTHER, SELFPAY ==
[2022-10-07 15:12] VITALS: BMI 42.4
--- NOTE | 2022-10-09 10:25 | HO.ANESPROP2 ---
Documented by User: Haylie Hollingsworth NP 10/09/22 10:32 HPI - Anesthesia Eval Consult details Narrative: 46yo F for Bilateral L5-S1 Transforaminal Epidural Injection Cardiac w/u 05/2022 for SOB, chest tightness negative. Seen by pulm 09/2022 - ? asthma vs anxiety. CPAP compliant, asthma and allergies well controlled. PMF Active Problems Active Problems: All Active Problems (Updated 10/08/22 @ 16:42 by Nasreen Bella MD) Lumbar radiculopathy (Acute) Lumbar spondylosis (Acute) Dyspnea (Acute) History of cardiac cath (Acute) Sebaceous cyst of labia (Acute) Abnormal nuclear stress test (Acute) Abnormal stress ECG with treadmill (Acute) Shortness of breath (Acute) Precordial chest pain (Acute) Recurrent chest pain (Acute) Renal cyst (Acute) Pain of left breast (Acute) Overactive bladder (Acute) Stool incontinence (Acute) Ovarian cyst (Acute) C. difficile diarrhea (Acute) Weight loss (Acute) Blood in stool (Acute) Disc disease, degenerative, lumbar or lumbosacral (Acute) Sacroiliac joint pain (Acute) Diarrhea (Acute) Back pain (Acute) Atypical facial pain (Acute) Chronic idiopathic constipation (Acute) GERD (gastroesophageal reflux disease) (Acute) Abdominal bloating (Acute) RUQ abdominal pain (Acute) Nausea and vomiting (Acute) Lump of scalp (Acute) Chronic cholecystitis without calculus (Acute) Morbid obesity with BMI of 40.0-44.9, adult (Acute) Biliary dyskinesia (Acute) Elevated TSH (Acute) Obesity (BMI 30-39.9) (Acute) Depression (Acute) Anxiety (Acute) Insomnia (Acute) Obstructive sleep apnea (Acute) Vitamin D deficiency (Acute) 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 myelopathy or radiculopathy (Acute) Elevated LFTs (Acute) Allergic rhinitis (Acute) Asthma (Acute) Migraine (Acute) Pure hypercholesterolemia (Acute) Benign essential hypertension (Acute) Diabetes mellitus (Acute) Past Medical History Medical History Allergic rhinitis Anxiety Asthma Benign essential hypertension Biliary dyskinesia Depression Diabetes mellitus Elevated LFTs Elevated TSH Gastroparesis IBS (irritable bowel syndrome) Insomnia Migraine Morbid obesity with BMI of 40.0-44.9, adult Obesity (BMI 30-39.9) Obstructive sleep apnea Overactive bladder Pure hypercholesterolemia 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 myelopathy or radiculopathy Vitamin D deficiency Family History Family History Father Diabetes Hypertension Heart problem Mother Arthritis Diabetes Hypertension Maternal Grandmother Breast cancer, Onset Age: 72 Family/Other Diabetes Hypertension Heart problem Family history of problems with anesthesia: No Surgical History Surgical History History of cardiac cath History of surgery of head Hx of colonoscopy (~03/2018) Hx of endoscopy Hx of hysterectomy (~08/2011) Hx of tubal ligation History of Problems with Anesthesia: No Social History Social History Household Members: Spouse Housing: House Alcohol intake: current Alcohol intake frequency: holidays/special occasions only Patient Tobacco Use Status: Never used Tobacco e-Cigarette/Vaping Use: Never Used Second Hand Smoke Exposure: No Use of substances other than those prescribed or required for medical reasons: No Are you DNR?: No Advance Directives: Yes Advance Directives on File: Yes Advance Directives Date on File: 03/20/16 Recently lost weight without trying: No How much weight loss: 2-13 pounds Nutrition Risks: No Nutritional Risk service: No Current occupational status: disabled Cognitive needs: No Hearing needs: No Vision needs: Yes Meds Allergies Allergy/AdvReac Type Severity Reaction Status Date / Time meclizine AdvReac tachycardia Verified 10/08/22 14:49 metoclopramide AdvReac tachycardia Verified 10/08/22 14:49 Home Medications Medication Instructions Recorded Confirmed Last Taken Type magnesium hydroxide 400 mg/5 mL 5 ml PO BEDTIME PRN constipation 04/11/20 08/23/22 Unknown History oral suspension (Milk of Magnesia) melatonin 3 mg tablet 6 mg PO DAILY 06/28/20 08/23/22 Unknown History propranolol 80 mg tablet 80 mg PO BID 06/28/20 10/10/22 10/10/22 History sertraline 100 mg tablet 100 mg PO DAILY 06/28/20 10/10/22 10/10/22 History ziprasidone HCl 80 mg capsule 80 mg PO BID 06/28/20 10/10/22 10/10/22 History (Geodon) topiramate 100 mg tablet 100 mg PO BID 07/20/21 10/10/22 10/10/22 History amitriptyline 75 mg tablet 75 mg PO DAILY 08/21/21 08/23/22 Unknown History ubrogepant 100 mg tablet (Ubrelvy) 100 mg PO ONCE 08/21/21 08/23/22 Unknown History clonidine HCl 0.1 mg tablet 0.1 mg PO BEDTIME 05/13/22 08/23/22 Unknown History onabotulinumtoxinA 100 unit unit IM ONCE 05/13/22 08/23/22 Unknown History solution for injection (Botox) beclomethasone dipropionate 80 1 inh inhalation BID 10/08/22 Unknown History mcg/actuation HFA breath activated aerosol (Qvar RediHaler) Exam Exam Date and Time: October 09, 2022 1025 Height,Weight and Vital Signs: Height 5 ft 4 in Weight 112.037 kg Pertinent Lab Results Pertinent Lab Results: Laboratory Tests 08/10/22 08/10/22 09:04 09:14 WBC 8.4 Hgb 13.1 Hct 40.5 Plt Count 257 Sodium 135 Potassium 4.3 Chloride 105 Carbon Dioxide 22 BUN 14 Creatinine 0.70 Narrative Narrative: EKG 05/2022 NSR @ 65 Per 05/2022 cardiac office visit: Echocardiogram done 04/16/2022 showed EF 70%, no regional wall motion abnormalities, no valve abnormalities.? Exercise stress test done on 04/03/2022 with exercise 4 minutes 40 seconds and report of 8/10 anterior chest discomfort without EKG changes.? pharmacological nuclear stress test on 04/26/2022 showing distal lateral, apical and inferior apical ischemia, EF 74%, t.i.d. not present.? She continue to report symptoms and then underwent a cardiac catheterization on 06/11/2022 showing normal coronary arteries.? Nuclear stress test result was felt to be a false positive.? Assessment and Plan Assessment Anesthesia Assessment: Chart Reviewed Final Anesthetic Review Family History of Problems with Anesthesia: No History of Problems with Anesthesia: No Documented by User: Daniel Lopez MD 10/10/22 15:46 PMFSH Past Medical History Medical History Allergic rhinitis Anxiety Asthma Benign essential hypertension Biliary dyskinesia Depression Diabetes mellitus Elevated LFTs Elevated TSH Gastroparesis IBS (irritable bowel syndrome) Insomnia Migraine Morbid obesity with BMI of 40.0-44.9, adult Obesity (BMI 30-39.9) Obstructive sleep apnea Overactive bladder Pure hypercholesterolemia 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 myelopathy or radiculopathy Vitamin D deficiency Family History Family History Father Diabetes Hypertension Heart problem Mother Arthritis Diabetes Hypertension Maternal Grandmother Breast cancer, Onset Age: 72 Family/Other Diabetes Hypertension Heart problem Surgical History Surgical History History of cardiac cath History of surgery of head Hx of colonoscopy (~03/2018) Hx of endoscopy Hx of hysterectomy (~08/2011) Hx of tubal ligation Social History Social History Household Members: Spouse Housing: House Alcohol intake: current Alcohol intake frequency: holidays/special occasions only Patient Tobacco Use Status: Never used Tobacco e-Cigarette/Vaping Use: Never Used Second Hand Smoke Exposure: No Use of substances other than those prescribed or required for medical reasons: No Are you DNR?: No Advance Directives: Yes Advance Directives on File: Yes Advance Directives Date on File: 03/20/16 Recently lost weight without trying: No How much weight loss: 2-13 pounds Nutrition Risks: No Nutritional Risk service: No Current occupational status: disabled Cognitive needs: No Hearing needs: No Vision needs: Yes Meds Allergies Allergy/AdvReac Type Severity Reaction Status Date / Time meclizine AdvReac tachycardia Verified 10/08/22 14:49 metoclopramide AdvReac tachycardia Verified 10/08/22 14:49 Home Medications Medication Instructions Recorded Confirmed Last Taken Type magnesium hydroxide 400 mg/5 mL 5 ml PO BEDTIME PRN constipation 04/11/20 08/23/22 Unknown History oral suspension (Milk of Magnesia) melatonin 3 mg tablet 6 mg PO DAILY 06/28/20 08/23/22 Unknown History propranolol 80 mg tablet 80 mg PO BID 06/28/20 10/10/22 10/10/22 History sertraline 100 mg tablet 100 mg PO DAILY 06/28/20 10/10/22 10/10/22 History ziprasidone HCl 80 mg capsule 80 mg PO BID 06/28/20 10/10/22 10/10/22 History (Geodon) topiramate 100 mg tablet 100 mg PO BID 07/20/21 10/10/22 10/10/22 History amitriptyline 75 mg tablet 75 mg PO DAILY 08/21/21 08/23/22 Unknown History ubrogepant 100 mg tablet (Ubrelvy) 100 mg PO ONCE 08/21/21 08/23/22 Unknown History clonidine HCl 0.1 mg tablet 0.1 mg PO BEDTIME 05/13/22 08/23/22 Unknown History onabotulinumtoxinA 100 unit unit IM ONCE 05/13/22 08/23/22 Unknown History solution for injection (Botox) beclomethasone dipropionate 80 1 inh inhalation BID 10/08/22 Unknown History mcg/actuation HFA breath activated aerosol (Qvar RediHaler) Exam Airway Mallampati Class: I TM Dist: <=3cm Neck ROM: Full Assessment and Plan Assessment Anesthesia Assessment: Anesthesia Plan Discussed Final Anesthetic Review NPO: Yes ASA Class: III Final Preanesthetic Review: No Changes in Pt Med Stat, Meds/Allgs Chart Reviewed, Consent Obtained/Reviewed and Anes Risks/Benef Reviewed Patient Risk: Intermediate Procedure Risk: Intermediate Anesthetic Plan Anesthetic Plan: MAC: and Agree w/ Assess. and Plan Disposition: Standard PACU
--- NOTE | ~2022-10-10 | FL_ITS ---
EXAMINATION: XR FLUOROSCOPY WITH IMAGES CLINICAL INFORMATION: L5-S1 transforaminal CAMRON bilaterally. COMPARISON: MR of the lumbar spine of 09/14/2021. TECHNIQUE: Fluoroscopy Supervised By: Dr. Nathan Escalante. Fluoroscopy Time: 0.6 minutes. Cumulative Dose: 17.0 mGy. DAP: 4.43 Gycm2. Images: 4. FINDINGS: Imaging demonstrates needles bilaterally for trans- foraminal CAMRON's bilaterally at the L5-S1 level. FL/FL guidance in OR IMPRESSION: Intraoperative fluoroscopy for pain management procedure.
[2022-10-10 13:18] VITALS: BP 107/66; PULSE 80; RESP 16; TEMP 36.6; O2SAT 98
[2022-10-10 13:34] LABS: Glucose, Whole Blood 147 mg/dL (60-115)
[2022-10-10] MEDS: Lactated Ringers 1,000 ML 100 ML IVCONT (13:40)
--- NOTE | 2022-10-10 14:20 | PC.NURSE ---
PATIENT MOVED FROM PRE-OP TO BED 14 PACU AND REPORT WAS GIVEN TO PRANEETH SETHI.
--- NOTE | 2022-10-10 15:01 | MHC.SHP ---
Pre-Procedural Eval Section A Date of Service: 10/10/22 The patient is an INPATIENT: No Changes since office visit: Yes Patient answered all questions The History & Physical has been completed within 30 days and I have reviewed it.: No Section B Chief Complaint: Radiculopathy, lumbar region,Other intervertebral Details of Present Illness: as above Relevant Family History (Specify if Yes): No Relevant Social History: None Present Medications: None Medical History: No relevant PMH History of Previous Operations: No relevant previous surgery Allergies: Allergies Allergy/AdvReac Type Severity Reaction Status Date / Time meclizine AdvReac tachycardia Verified 10/08/22 14:49 metoclopramide AdvReac tachycardia Verified 10/08/22 14:49 Review of Systems Sugical H&P ROS: Negative: Cardiovascular, Respiratory, Neurological, Psychiatric, Hem-Onc, Allergic/Immunologic, Gastrointestinal, Genitourinary, Integumentary, Endocrine and Eyes/Ears/Nose/Throat and Yes, Specify: Constitution (obesity) and Musculoskeletal (DDD lumbar) Exam Surgical H&P Exam: Normal: HEENT, Normal: Heart, Normal: Lungs, Normal: Extremities, Normal: Skin and Normal: Neurological and Significant Findings: Abdomen (enlarged 2 to i/a & s/q fat) Plan Diagnosis/Plan: Unchanged I have reviewed the history and physical and performed a pertinent physical examination on my patient. No changes have occurred unless specified. Time Spent With Patient Time: Total time managing care of this patient today ____ minutes.
--- NOTE | 2022-10-10 15:11 | P.OP_ITS ---
Operative Note Operative Note Date of Service: 10/10/22 Narrative: Bilateral L5 S1 Transforaminal epidural steroid injection Informed consent was thoroughly explained to the patient before the procedure.? The patient came to the operating room. She was positioned prone on operating table with a pillow under his abdomen.? ASA monitors were applied and patient was Minimally sedated. Time-out was performed delineating correct site and side of the procedure, nature of the injection, name and date of of the patient. The lower back of the patient was prepped with ChloraPrep and draped with sterile utility towels.? C-arm was brought over the operating field and sq picture of L5 vertebra was demonstrated on the screen.? The right side was chosen as the side of the injection.? Tilting machine ipsilateral to the right at the level of L5 the most prominent picture of the right? pedicle was obtained on the screen.? 3 mm below the level of the lowest point of the pedicle projection to the skin small amount of lidocaine 1% 3-4 cc was injected to an esthetize the skin.? After that 5 in 22 gauge Quincke point needle was inserted through the skin wheal and was advanced to the L5-S1 foramina? on anterior posterior, lateral? and oblique views intermittently.? When tip of the needle entered foramina projection on AP view injection of the contrast was performed demonstrating epidural and perineural spread of the contrast.? After that injection of the treatment medicine 4 cc of preservative-free lidocaine 1% mixed with Kenalog 40 mg was injected into the foramina.? Injection of the contrast and injection of the treatment medicine was observed live on the screen.? No intrathecal and no intravascular spread of the contrast was noted. After that the procedure repeated in the same fashion at othe opposite side the same level Upon completion of the procedures the needle was withdrawn sterile bandaids were applied, the patient tolerated the procedure fairly well.
--- NOTE | 2022-10-10 16:10 | P.BOP_ITS ---
Brief Operative Note Date of Service: 10/10/22 Pre-op diagnosis: disc degeneration lumbar with radiculopathy Post-op diagnosis: same Procedure: bilateral TFESI L5- S1 Surgeon: Nathan Escalante MD Anesthesia: MAC Was an Lecturer In Computer Science used for this Procedure?: No Estimated blood loss (mL): 0 Condition: stable Disposition: PACU
[2022-10-10 16:15] VITALS: BP 115/69; PULSE 87; RESP 16; TEMP 36.7; O2SAT 98
[2022-10-10] MEDS: Acetaminophen 325 MG TABLET 650 MG PO (16:24)
[2022-10-10 16:30] VITALS: BP 113/74; PULSE 82; RESP 16; TEMP 36.4; O2SAT 98
== END 2022-10-10 16:45 | disposition home or self-care (01) ==
PROVIDERS: PCP Internal Medicine; Visit Provider Anesthesiology
PROC: (CPT 64483; principal; 2022-10-10 14:00)
DX: M51.37 Other intervertebral disc degeneration, lumbosacral region (principal); M47.26 Other spondylosis with radiculopathy, lumbar region; M53.3 Sacrococcygeal disorders, not elsewhere classified; I10 Essential (primary) hypertension; E11.9 Type 2 diabetes mellitus without complications; J45.909 Unspecified asthma, uncomplicated
CPT/HCPCS: 64483; 82947; J2250; J3010; J3301

== ENCOUNTER 2022-10-24 09:44 | Outpatient (REF) | payer OTHER, SELFPAY ==
[2022-10-24 15:42] LABS: CT PCR NOT DETECTED (Not Detect.); NG PCR NOT DETECTED (Not Detect.)
[2022-10-25 11:04] LABS: BV Int Neg Control Negative (Negative); BV Int Pos Control Positive (Positive)
[2022-10-26 07:23] LABS: HPV mRNA E6/E7 rflx Not Detected (Not Detected)
== END 2022-10-24 09:45 | disposition home or self-care (01) ==
LOC: HO.LNP 09:44
PROVIDERS: PCP Internal Medicine; Visit Provider Advanced Practice Midwife
DX: Z01.419 Encounter for gynecological examination (general) (routine) without abnormal findings (principal); Z11.51 Encounter for screening for human papillomavirus (HPV); E11.9 Type 2 diabetes mellitus without complications; E66.01 Morbid (severe) obesity due to excess calories; Z68.41 Body mass index [BMI] 40.0-44.9, adult
CPT/HCPCS: 0353U; 87480; 87510; 87624; 87660; 88142

== ENCOUNTER 2022-11-07 09:49 | Outpatient (REF) | payer OTHER, SELFPAY ==
--- NOTE | 2022-11-07 11:50 | PFT_ITS ---
INDICATION: Asthma. SPIROMETRY: FEV1 to FVC of 88% with an FEV1 of 2.45 L, which is 34% predicted and an FVC of 3.03 L, which is 35% predicted. No significant response to bronchodilators noted. Maximum voluntary ventilation 88% predicted. LUNG VOLUMES: Total lung capacity 91% predicted with an expiratory reserve volume of 60%. DIFFUSION CAPACITY: DLCO 90% predicted. COMPARISON: None. INTERPRETATION: No obstructive and no restrictive ventilatory defects identified. No significant response to bronchodilator is noted. Normal maximum voluntary ventilation. Lung volumes are normal except for decrease in the expiratory residual volume secondary to the elevated BMI. Diffusion capacity is within normal limits. If asthma is in the differential, consider methacholine challenge for further evaluation of hyperreactive airway disease. Otherwise, clinical correlation is warranted. Kameron Galeano MD MR/MODL / [id number]
== END 2022-11-07 09:50 | disposition home or self-care (01) ==
LOC: HO.RESP 09:49
PROVIDERS: PCP Internal Medicine; Visit Provider Internal Medicine
DX: J45.909 Unspecified asthma, uncomplicated (principal); R06.00 Dyspnea, unspecified; E66.01 Morbid (severe) obesity due to excess calories; Z68.41 Body mass index [BMI] 40.0-44.9, adult
CPT/HCPCS: 94010; 94727; 94729

== ENCOUNTER 2022-11-11 08:08 | Outpatient (REF) | payer OTHER, SELFPAY ==
[2022-11-11 11:20] LABS: MANUAL DIFF FLAG NO
[2022-11-11 11:27] LABS: Appearance Urine Clear; Color Urine Yellow; Glucose Urine UA Negative (Negative); Leukocyte Esterase Urine Negative (Negative); Nitrite Urine Negative (Negative); Specific Gravity - Urine <= 1.005 (1.005-1.025); Urine Blood Negative (Negative); Urine Ketones Negative (Negative); Urine Protein Negative (Neg-Trace)
[2022-11-11 11:35] LABS: Basophils Percent Auto 0.5 % (0-2); Eosinophils Absolute Auto 0.1 X10*3/uL (0.0-0.4); Eosinophils Percent Auto 1.5 % (0-4); Hematocrit 38.6 % (37.0-47.0); Hemoglobin 12.3 g/dl (12.0-16.0); Imm Gran Pct Auto 1.2 % (0.0-0.4); Lymphocytes Absolute Auto 2.2 X10*3/uL (1.2-4.9); Mean Corpuscular HGB Conc 31.9 g/dl (31.0-35.0); Mean Corpuscular Hemoglobin 30.9 pg (27.0-33.0); Mean Platelet Volume 10.5 fL (9.4-12.3); Monocytes Absolute Auto 0.6 X10*3/uL (0.1-1.2); Monocytes Percent Auto 7.3 % (2-11); Neutrophils Absolute Auto 5.5 x10*3/uL (2.0-8.3); Neutrophils Percent Auto 63.5 % (45-73); Platelet Count 288 X10*3/uL (160-400); Red Blood Count 3.98 X10*6/uL (4.20-5.50); Red Cell Distribution Width 13.4 % (11.0-16.0); White Blood Count 8.6 X10*3/uL (4.8-10.8)
[2022-11-11 11:51] LABS: Estimated Average Glucose 163 mg/dL; Hemoglobin A1c % 7.3 %
[2022-11-11 11:53] LABS: Alanine Aminotransferase 18 U/L (0-31); Albumin Level 3.7 g/dL (3.5-5.0); Alkaline Phosphatase 95 U/L (39-117); Anion Gap 8 (12-20); Aspartate Amino Transferase 15 U/L (5-31); Bilirubin Total 0.4 mg/dL (0.0-1.0); Blood Urea Nitrogen 11 mg/dL (9-16); Carbon Dioxide 27 mmol/L (22-29); Chloride 107 mmol/L (96-108); Cholesterol 147 mg/dL; Estimated Glomerular Filt Rate > 60; Glucose Fasting 156 mg/dL (60-99); HDL Cholesterol 49 mg/dL; LDL Cholesterol Calculated 67 mg/dl; Potassium 3.8 mmol/L (3.3-5.1); Sodium 138 mmol/L (135-145); Total Protein 6.3 g/dL (6.5-8.0); Triglycerides 156 mg/dL
[2022-11-11 12:05] LABS: Creatinine Urine 20.25 mg/dL; Microalbumin Urine < 5.0 mg/L
[2022-11-11 12:13] LABS: TSH reflex Free T4 4.85 uIU/mL (0.32-4.0); Vitamin D 25-OH Total 27.4 ng/mL (>30)
[2022-11-11 13:11] LABS: Free T4 (Free Thyroxine) 0.93 ng/dL (0.71-1.85)
== END 2022-11-11 08:09 | disposition home or self-care (01) ==
LOC: HO.HMGCLDS 08:08
PROVIDERS: PCP Internal Medicine; Visit Provider Internal Medicine
DX: E11.9 Type 2 diabetes mellitus without complications (principal); I10 Essential (primary) hypertension; E78.00 Pure hypercholesterolemia, unspecified; R30.0 Dysuria; E55.9 Vitamin D deficiency, unspecified
CPT/HCPCS: 36415; 80053; 80061; 81003; 82043; 82306; 83036; 84439; 84443; 85025

== ENCOUNTER 2022-11-15 09:54 | Outpatient (REF) | payer OTHER, SELFPAY ==
--- NOTE | ~2022-11-15 | XR_ITS ---
EXAMINATION: XR THORACIC SPINE CLINICAL INFORMATION: Upper back pain. COMPARISON: 05/22/2021 TECHNIQUE: 3 views of the thoracic spine were obtained. FINDINGS: There are 12 rib-bearing thoracic vertebral bodies. Normal sagittal alignment. Vertebral body heights are maintained. Mild diffuse intervertebral disc space narrowing. Pedicles are intact. XR/XR thoracic spine 3V IMPRESSION: No acute abnormality.
== END 2022-11-15 09:55 | disposition home or self-care (01) ==
LOC: HO.XRAY 09:54
PROVIDERS: PCP Internal Medicine; Visit Provider Nurse Practitioner Family
DX: M54.6 Pain in thoracic spine (principal); M47.816 Spondylosis without myelopathy or radiculopathy, lumbar region; E66.01 Morbid (severe) obesity due to excess calories; Z68.41 Body mass index [BMI] 40.0-44.9, adult
CPT/HCPCS: 72072; 99212

== ENCOUNTER → 2022-12-12 11:15 | Outpatient (BNVA) | payer OTHER, SELFPAY | PROVIDERS: PCP Internal Medicine; Visit Provider Internal Medicine | DX: M54.6 Pain in thoracic spine (principal); M47.816 Spondylosis without myelopathy or radiculopathy, lumbar region; M54.16 Radiculopathy, lumbar region; M51.36 Other intervertebral disc degeneration, lumbar region; M53.3 Sacrococcygeal disorders, not elsewhere classified; M62.830 Muscle spasm of back; E66.01 Morbid (severe) obesity due to excess calories; Z68.41 Body mass index [BMI] 40.0-44.9, adult | CPT/HCPCS: 99212 ==

== ENCOUNTER 2023-01-06 10:41 | Outpatient (AMB) | payer OTHER, SELFPAY ==
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
[2023-01-06 10:58] VITALS: BP 111/62; PULSE 74; BMI 41.6
== END 2023-01-06 11:34 | disposition home or self-care (01) ==
PROVIDERS: PCP Internal Medicine; Visit Provider Internal Medicine Gastroenterology
DX: R19.7 Diarrhea, unspecified (principal); R10.11 Right upper quadrant pain
CPT/HCPCS: 99214

== ENCOUNTER → 2023-01-06 10:41 | Outpatient (BNVA) | payer OTHER, SELFPAY | PROVIDERS: PCP Internal Medicine; Visit Provider Internal Medicine Gastroenterology | DX: R19.7 Diarrhea, unspecified (principal); R10.11 Right upper quadrant pain | CPT/HCPCS: 99212 ==

== ENCOUNTER 2023-01-10 10:44 | Outpatient (REF) | payer OTHER, SELFPAY ==
--- NOTE | ~2023-01-10 | XR_ITS ---
EXAMINATION: XR ABDOMEN KUB CLINICAL INDICATION: Diarrhea. COMPARISON: None available. TECHNIQUE: AP view of the abdomen. FINDINGS: The bowel gas pattern is normal. No gaseous distention seen. There is no organomegaly. No radiopaque calculi. No gross bony abnormality. XR/XR KUB IMPRESSION: Unremarkable abdomen exam.
[2023-01-10 11:57] LABS: MANUAL DIFF FLAG NO
[2023-01-10 12:35] LABS: Basophils Absolute Auto 0.1 X10*3/uL (0.0-0.2); Basophils Percent Auto 0.6 % (0-2); Eosinophils Absolute Auto 0.2 X10*3/uL (0.0-0.4); Eosinophils Percent Auto 1.7 % (0-4); Hematocrit 42.3 % (37.0-47.0); Hemoglobin 13.3 g/dl (12.0-16.0); Imm Gran Abs Auto 0.07 X10*3/uL (0.00-0.03); Imm Gran Pct Auto 0.7 % (0.0-0.4); Lymphocytes Absolute Auto 2.2 X10*3/uL (1.2-4.9); Lymphocytes Percent Auto 21.3 % (20-40); Mean Corpuscular HGB Conc 31.4 g/dl (31.0-35.0); Mean Corpuscular Hemoglobin 30.7 pg (27.0-33.0); Mean Corpuscular Volume 97.7 fL (80.0-98.0); Mean Platelet Volume 10.6 fL (9.4-12.3); Monocytes Absolute Auto 0.7 X10*3/uL (0.1-1.2); Neutrophils Absolute Auto 7.1 x10*3/uL (2.0-8.3); Neutrophils Percent Auto 68.7 % (45-73); Platelet Count 303 X10*3/uL (160-400); Red Blood Count 4.33 X10*6/uL (4.20-5.50); Red Cell Distribution Width 12.9 % (11.0-16.0); White Blood Count 10.4 X10*3/uL (4.8-10.8)
[2023-01-10 13:08] LABS: Alanine Aminotransferase 15 U/L (0-31); Albumin Level 4.1 g/dL (3.5-5.0); Alkaline Phosphatase 113 U/L (39-117); Anion Gap 11 (12-20); Aspartate Amino Transferase 13 U/L (5-31); Bilirubin Total 0.2 mg/dL (0.0-1.0); Blood Urea Nitrogen 18 mg/dL (9-16); Calcium 9.6 mg/dL (8.4-10.2); Carbon Dioxide 24 mmol/L (22-29); Chloride 106 mmol/L (96-108); Estimated Glomerular Filt Rate > 60; Glucose Random 169 mg/dL (60-115); Magnesium 2.2 mg/dL (1.6-2.6); Potassium 4.3 mmol/L (3.3-5.1); Sodium 137 mmol/L (135-145); Total Protein 7.3 g/dL (6.5-8.0)
[2023-01-10 13:11] LABS: TSH reflex Free T4 4.01 uIU/mL (0.32-4.0)
[2023-01-10 14:21] LABS: Free T4 (Free Thyroxine) 0.77 ng/dL (0.71-1.85)
[2023-01-10 15:01] LABS: Folate 14.3 ng/mL (> or = 4.0); Vitamin B12 1137 pg/mL (200-900)
[2023-01-13 13:31] LABS: CDiff Gene PCR NEGATIVE (Negative)
[2023-01-13 14:54] LABS: Adenovirus F 40/41 Not Detected (Not Detect.); Astrovirus Not Detected (Not Detect.); Campylobacter Not Detected (Not Detect.); Cryptosporidium Not Detected (Not Detect.); Cyclospora cayetanensis Not Detected (Not Detect.); E. coli EAEC Not Detected (Not Detect.); E. coli EPEC Not Detected (Not Detect.); E. coli ETEC Not Detected (Not Detect.); E. coli STEC Not Detected (Not Detect.); Entamoeba histolytica Not Detected (Not Detect.); Giardia lamblia Not Detected (Not Detect.); Norovirus GI/GII Not Detected (Not Detect.); Plesiomonas shigelloides Not Detected (Not Detect.); Rotavirus A Not Detected (Not Detect.); Salmonella Not Detected (Not Detect.); Sapovirus Not Detected (Not Detect.); Shigella sp./EIEC Not Detected (Not Detect.); Vibrio Not Detected (Not Detect.); Vibrio Cholerae Not Detected (Not Detect.); Yersinia enterocolitica Not Detected (Not Detect.)
[2023-01-15 05:59] LABS: Zinc 64 mcg/dL (60-130)
[2023-01-15 15:48] LABS: Vitamin B1 24 nmol/L (8-30)
== END 2023-01-10 10:45 | disposition home or self-care (01) ==
LOC: HO.LAB 10:44
PROVIDERS: Absent Provider Internal Medicine Gastroenterology; PCP Internal Medicine; Visit Provider Physician Assistant
DX: R10.11 Right upper quadrant pain (principal); R19.7 Diarrhea, unspecified; K75.81 Nonalcoholic steatohepatitis (NASH); M51.36 Other intervertebral disc degeneration, lumbar region
CPT/HCPCS: 36415; 74018; 80053; 82607; 82746; 83735; 84425; 84439; 84443; 84630; 85025; 86140; 87507; 99202

== ENCOUNTER 2023-01-10 10:44 | Outpatient (AMB) | payer OTHER, SELFPAY ==
--- NOTE | 2023-01-10 11:13 | A.SPINEOV_ITS ---
Intake Intake Visit Reasons: Pain Intake Note: Mrs. Goldberg is here today c/o back pain. 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 This is a 47-year-old female diabetic, chronic low back pain for many years, also has bilateral pain radiating down her legs into the bottom of her feet. It is aggravated with standing walking, gets better when she sits but does not necessarily go away. She went through physical therapy for 1 year, has been trying things like tramadol, baclofen, gabapentin. She underwent a cortisone injection with your office at L5-S1 bilateral TFE and had great results with the temporarily. She is here today see us with an MRI showing a severely collapsed disc at L5-S1. PMH: She is diabetic, her last A1c was 7.4, shortness of breath, she had history of chest pain with a cardiac catheterization which was clean, history of thoracic back pain, chronic constipation, GERD, abdominal bloating, hysterectomy, elevated TSH, obesity, depression, anxiety, sleep apnea, elevated LFTs, rhinitis, asthma, migraine, high cholesterol, hypertension Social hx: Is she does not smoke Medications: Albuterol, amitriptyline, atorvastatin, baclofen, QVAR inhaler, clonazepam, S omeprazole, gabapentin, Linzess, Victoza, metformin, Singulair, Pioglitazone, sertraline, Topamax Allergies: Meclizine and metoclopramide Physical exam: Morbidly obese female no acute distress, she is able to stand up out of a chair on her own, intact strength and reflexes Imaging review: Lumbar MRI done in August 2021 shows a severely collapsed disc at L5-S1, there is no pars defect, there is moderate foraminal narrowing and there is posterior bulging disc related to this which may be contacting the S1 nerve roots Impression: 47-year-old female presents with bilateral leg pain and chronic low back pain will aggravated with activity. It did respond nicely to an L5-S1 TF E but other than that she has had no relief as the years have gone on. She does have a very collapsed disc at L5-S1 which I think is the explanation for her pain. I do not see any overt nerve compression on the study but there is some moderate foraminal narrowing which could get worse when she stands. There is also posterior disc bulge which also could possibly be aggravating and displacing the nerve root with standing. Her MRI is over a year old so I would like to get a new 1 and then we can see her back on a day Dr. Henry is here. Typically for this kind of situation he would approach this from an anterior approach or an oblique approach with spinal fusion. Once we see the follow-up MRI we can have a more thorough discussion with her. Thank you for allowing us to care for your patient. The total time spent with this visit with this patient was 45 minutes reviewing history, physical exam, lumbar imaging review, and implementation of treatment plan or further diagnostic testing Imer Henry MD,PhD [facility] Coding Level of Care Code New Pt Level 4 (22450) Diagnoses Lumbar degenerative disc disease M51.36
== END 2023-01-10 12:15 | disposition home or self-care (01) ==
PROVIDERS: PCP Internal Medicine; Referring Provider Nurse Practitioner Family; Visit Provider Physician Assistant
DX: M51.36 Other intervertebral disc degeneration, lumbar region (principal)
CPT/HCPCS: 99204

== ENCOUNTER 2023-01-14 15:47 | Outpatient (AMB) | payer OTHER, SELFPAY ==
[2023-01-14 15:49] VITALS: BP 112/82; PULSE 74; O2SAT 99; BMI 41.5
--- NOTE | 2023-01-14 15:49 | MHC.PC.OV ---
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 Allergies meclizine Adverse Reaction (Verified 01/14/23 15:59) tachycardia metoclopramide Adverse Reaction (Verified 01/14/23 15:59) tachycardia Medication List - Last Reconciled 01/14/23 by YONNY Vela [ADULT PULL UPS As directed] albuterol sulfate 90 mcg/actuation (Ventolin HFA) 2 puffs inhalation QID PRN alum-mag hydroxide-simeth 400-400-40 mg/5 mL (Mylanta Maximum Strength) 10 mL PO TID PRN amitriptyline 75 mg PO DAILY atorvastatin 20 mg PO DAILY 90 days baclofen 10 mg PO BID PRN beclomethasone dipropionate 80 mcg/actuation (Qvar RediHaler) 1 inh inhalation BID blood sugar diagnostic (FreeStyle Lite Strips) TEST BLOOD SUGAR DIRECTED 3 TIMES A DAY cholecalciferol (vitamin D3) 50 mcg PO DAILY 90 days clonazepam 1 mg PO TID diaper,brief,adult,disposable (Depend Easy Fit Undergarments [facility] [place]) As directed dicyclomine 20 mg PO BID esomeprazole magnesium 40 mg PO DAILY [FREESTYLE LITE TEST STRIPS Test blood sugar as directed 3 times a day - E11.9 -- DIABETES] FreeStyle Lite Meter (blood-glucose meter) As directed NS gabapentin 300 mg PO BEDTIME lancets (FreeStyle Lancets) As directed- 3 times a day linaclotide (Linzess) 290 mcg PO QAM 30 days liraglutide (Victoza 3-Shamir) 1.2 mg (0.2 mL) subcut DAILY melatonin 6 mg PO DAILY metformin 500 mg PO BID 90 days methylcellulose (laxative) (Fiber Laxative (methylcellulose)) 500 mg PO BID 30 days methylprednisolone (Medrol (Shamir)) PO PER PKG DIR miconazole nitrate 2% (Miconazole-7) 1 appful vaginal BEDTIME 7 days miconazole nitrate 2% 1 appl topical BID miscellaneous medical supply 1 ea miscellaneous DAILY MDD 1 per night NS montelukast 10 mg PO DAILY 90 days onabotulinumtoxinA (Botox) units IM ONCE ondansetron 4 mg PO TID pen needle, diabetic (Comfort EZ Pen Wyocena) As directed daily pioglitazone 30 mg PO DAILY 90 days propranolol 80 mg PO BID sennosides (senna) 17.2 mg (2 x 8.6 mg) PO BEDTIME PRN 90 days sertraline 100 mg PO DAILY simethicone 180 mg PO TID topiramate 100 mg PO BID tramadol 50 mg PO TID PRN 30 days triamcinolone acetonide 1 spray intranasal DAILY ziprasidone HCl (Geodon) 80 mg PO BID Tobacco use date assessed: 01/14/23 HPI Fluid Retention/Swollen Face/Hands/Feet HPI Details Patient is a 47-year-old female presents today for the same day visit due to swelling in her hands and feet for the past [address] Lr. Medical history significant for diabetes, hypertension, hypercholesterolemia, migraine, asthma, GERD, back pain among others. Patient reports history of swelling in her extremities in the past. She reports swelling in bilateral arms from elbows down to her fingers as well as in legs from knees down to her feet. Patient reports that swelling is improving, it was worse last week. She reports eating low-sodium diet. Recent blood work results reviewed with the patient which showed dehydration, she was encouraged to drink more water. Reports intermittent ongoing chest pains on and off which are chronic for her, reports seeing [facility], she did have negative echocardiogram 03/2022. Reports intermittent shortness of breath which is not new for her. Reports none symptoms are new for her. COUNT INCLUDES THE [facility] Medical History (Updated 01/14/23 @ 16:08 by YONNY Vela) Allergic rhinitis Anxiety Asthma Benign essential hypertension Biliary dyskinesia Depression Diabetes mellitus Diarrhea Elevated LFTs Elevated TSH Gastroparesis IBS (irritable bowel syndrome) Insomnia Migraine Morbid obesity with BMI of 40.0-44.9, adult Obesity (BMI 30-39.9) Obstructive sleep apnea Overactive bladder Pure hypercholesterolemia 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 myelopathy or radiculopathy Vitamin D deficiency Surgical History History of cardiac cath History of surgery of head Hx of colonoscopy (~03/2018) Hx of endoscopy Hx of hysterectomy (~08/2011) Hx of tubal ligation Family History Father Diabetes Hypertension Heart problem Mother Arthritis Diabetes Hypertension Maternal Grandmother Breast cancer, Onset Age: 72 Family/Other Diabetes Hypertension Heart problem Social History Household Members: Spouse Housing: House Alcohol intake: current Alcohol intake frequency: holidays/special occasions only Patient Tobacco Use Status: Never used Tobacco e-Cigarette/Vaping Use: Never Used Second Hand Smoke Exposure: No Advance Directives Date on File: 03/20/16 service: No Current occupational status: disabled Cognitive needs: No Hearing needs: No Vision needs: Yes Female Reproductive History Menstrual Age of Menarche: 13 Questionnaire Thrive Questionnaire Date Thrive assessed: 11/18/22 AUDIT C Alcohol Use Questionnaire (AUDIT-C) 1. How often do you have a drink containing alcohol?: Never 3. How often do you have six or more drinks on one occasion?: Never Total Score: 0 Score Reviewed/Action Taken: No FADUMO-7 AMB Questionnaire FADUMO-7 Date FADUMO - 7 assessed: 11/18/22 Source: Developed by Drs. Raymond Plunkett, Meaghan Art, Keshav Castro and colleagues, with an educational david from [employer]. Review of Systems Const Denies body aches, Denies chills, Denies fever(s) and Denies headache(s) Eyes Denies change in vision ENT Denies dizziness, Denies otalgia, Denies headache(s), Denies nasal discharge, Denies sinus pain and Denies sore throat Card Reports as per HPI, Denies chest pain (No chest pain now), Denies edema, Reports leg edema, Denies lightheadedness and Reports dyspnea (Intermittent) Resp Denies cough, Reports dyspnea (Intermittent) and Denies wheezing GI Denies abdominal pain Denies dysuria Musc Denies myalgias Skin/Breast Denies rash Neuro Denies dizziness and Denies headache(s) Aller/Immun Denies wheezing Physical exam (Primary Care) Vital Signs: Last Vital Signs Pulse 74 01/14/23 15:49 BP 112/82 01/14/23 15:49 Pulse Ox 99 01/14/23 15:49 Oxygen Delivery Method Room Air 01/14/23 15:49 BMI result Body Mass Index 41.5 Tobacco/Smoking Status: Tobacco use Status Tobacco use date assessed 01/14/23 01/14/23 15:51 Patient Tobacco Use Status Never used Tobacco 01/14/23 15:51 e-Cigarette/Vaping Use Never Used 01/14/23 15:51 Thrive Assessment: Date of Thrive Assessment Date Thrive assessed 11/18/22 01/14/23 15:51 Const General: cooperative and no acute distress Orientation/consciousness: patient oriented x3 HENMT Head: Yes normocephalic and Yes atraumatic Face and sinus: Yes sinuses nontender Mouth: oropharynx normal and moist mucous membranes Throat: Yes posterior oropharynx normal Eyes General: appearance normal, both eyes and all related structures Pupils: Equal, round and reactive pupils present EOM: EOMs intact bilaterally Neck Neck: Yes normal visual inspection and Yes full ROM Resp Effort & Inspection: normal respiratory effort and able to speak in complete sentences Auscultation: clear to auscultation bilaterally, no crackles, no rales, no rhonchi and no wheezes Cardio Rate: regular rate Rhythm: regular rhythm Heart sounds: S1 normal heart sound present and S2 normal heart sound present GI Auscultation: normal bowel sounds Skin General skin exam: no rashes or lesions noted Neuro General: patient oriented x3 Cranial nerves: Yes Equal, round and reactive pupils present Gait exam (Neuro): Normal gait present Extrem Other: No edema noted to bilateral upper extremity Very mild trace edema noted to bilateral lower extremity from knee down to ankles General: Yes full ROM Assessment and Plan Assessment & Plan (1) Edema of both lower legs: Code(s): R60.0 - Localized edema Plan: Will check BNP. Echocardiogram negative 03/2022, patient reports that leg and arm edema is not new for her. Reinforced low-sodium diet. Encouraged to apply compression stockings on during the day and off at night. Elevate bilateral lower extremity. Keep appointment with PCP as scheduled or follow-up sooner as needed. Signs and symptoms reviewed when to notify provider or go to the emergency department. Patient agreed with the plan. Orders: Orders B Type Natriuretic Peptide Today R60.0 - Localized edema Coding Level of Care Code Est Pt Level 3 (35670) Diagnoses Edema of both lower legs R60.0
== END 2023-01-14 16:17 | disposition home or self-care (01) ==
PROVIDERS: PCP Internal Medicine; Visit Provider Nurse Practitioner Family
DX: R60.0 Localized edema (principal)
CPT/HCPCS: 99213

== ENCOUNTER 2023-01-14 16:14 | Outpatient (REF) | payer OTHER, SELFPAY ==
[2023-01-14 18:51] LABS: B Type Natriuretic Peptide 13 pg/mL (<100)
== END 2023-01-14 16:15 | disposition home or self-care (01) ==
LOC: HO.LAB 16:14
PROVIDERS: Internal Medicine Gastroenterology; PCP Internal Medicine; Visit Provider Nurse Practitioner Family
DX: R60.0 Localized edema (principal)
CPT/HCPCS: 36415; 83880

== ENCOUNTER 2023-01-21 09:53 | Outpatient (REF) | payer OTHER, SELFPAY ==
--- NOTE | ~2023-01-21 | US_ITS ---
EXAMINATION: US COMPLETE ABDOMEN WITH LIVER ELASTOGRAPHY CLINICAL INFORMATION: Right upper quadrant pain with abdominal distention, nausea, and diarrhea. COMPARISON: CT examination of 08/14/2021 and abdominal ultrasound of 10/26/2020. TECHNIQUE: Real-time imaging of the abdominal viscera. Noninvasive ultrasound liver fibrosis assessment is performed using Rebecca ElastPQ point quantification shear wave elastography (2D-SWE) with a C5-2 MHz transducer. Multiple elastography samples are obtained. FINDINGS: PANCREAS: Normal. The visualized pancreatic head and body are normal in appearance. The remainder of the pancreas is obscured from visualization by the overlying bowel gas. ABDOMINAL AORTA: The proximal, middle, and distal aortic segments are normal in caliber. INFERIOR VENA CAVA: Visualized portions are normal. LIVER: There is again noted to be increased echogenicity diffusely within the liver consistent with fatty infiltration/hepatocellular disease. No focal mass or intrahepatic bile duct dilatation is seen. The right lobe measures 18.1 cm in length. The left lobe measures 13.7 cm in length. Portal flow is hepatopedal. Shear wave liver elastography median stiffness is 1.87 m/s (reference: normal median stiffness is 1.3 m/s or less). IQR/median stiffness to assess sampling precision is 0.07 (reference: good quality data set is IQR/median stiffness of 0.15 or less). GALLBLADDER: There is again noted to be a non-mobile 5 x 3 x 4 mm echogenic structure consistent with cholesterol polyp. No gallbladder wall thickening is seen. No abnormal pericholecystic fluid collection is seen. No fluid within the gallbladder wall is noted. COMMON BILE DUCT: Normal in caliber measuring 0.5 cm in diameter. RIGHT KIDNEY: Normal. No hydronephrosis. No renal calculi or focal parenchymal lesions. The kidney measures 12.7 cm in maximum dimension. LEFT KIDNEY: There is again noted to be similar appearance of a midpole complex cyst with calcification measuring 5.7 x 5.6 x 5.9 cm in size. On previous study dating back to 02/24/2018, it measured approximately 5 x 4 x 3.5 cm in size. MRI of 07/01/2018 did not show any solid component or internal vascularity. MRI of 12/14/2020 again did not demonstrate any solid component, nodularity, or enhancement. No hydronephrosis identified. No definite suspicious solid mass is seen. The kidney measures 11.4 cm in maximum dimension. SPLEEN: Normal. The spleen measures 11.6 cm in maximum dimension. FREE FLUID: None. US/US abdomen comp w elastography IMPRESSION: 1. Essentially stable left renal complex cyst with calcification. 2. Increased echogenicity of the liver consistent with fatty infiltration/hepatocellular disease. 3. Stable gallbladder polyp. 4. Liver Elastography: Measurements are suggestive of compensated advanced chronic liver disease but need further test for confirmation. REFERENCE: Society of Radiologists in Ultrasound Liver Stiffness Thresholds (2020): LIVER STIFFNESS THRESHOLDS: *Liver Stiffness equal or less than 1.3 m/s: High probability of being normal. *Liver Stiffness less than 1.7 m/s: In the absence of other known clinical signs, rules out compensated advanced chronic liver disease. *Liver Stiffness 1.7-2.1 m/s: Suggestive of compensated advanced chronic liver disease but need further test for confirmation. *Liver Stiffness over 2.1 m/s: Rules in compensated advanced chronic liver disease. *Liver Stiffness over 2.4 m/s: Suggestive of clinically significant portal hypertension. QUALITY OF DATA SET: *IQR/Median value equal or less than 0.15 implies a quality data set. *IQR/Median value over 0.15 implies a poor quality data set. SIGNIFICANT CHANGE FROM PRIOR EXAM: Significant change if liver stiffness measurement is 10% or greater from prior exam. OTHER CONSIDERATIONS: The stage of liver fibrosis may be overestimated in the setting of acute hepatitis, liver inflammation, elevated liver function tests, hepatic vascular congestion, obstructive cholestasis, non-fasting state, and infiltrative diseases such as amyloidosis and lymphoma. In some patients with NAFLD, the liver stiffness thresholds for compensated advanced chronic liver disease may be lower. In causes other than viral hepatitis and NAFLD, liver stiffness thresholds are not well established.
== END 2023-01-21 09:54 | disposition home or self-care (01) ==
LOC: HO.US 09:53
PROVIDERS: PCP Internal Medicine; Visit Provider Internal Medicine Gastroenterology
DX: R19.7 Diarrhea, unspecified (principal)
CPT/HCPCS: 76705; 76981

== ENCOUNTER → 2023-01-30 10:51 | Outpatient (BNVA) | payer OTHER, SELFPAY | PROVIDERS: PCP Internal Medicine; Visit Provider Physician Assistant Surgical ==

== ENCOUNTER 2023-02-18 10:02 | Outpatient (REF) | payer OTHER, SELFPAY | END 2023-02-18 10:03 | disposition home or self-care (01) | LOC: HO.US 10:02 | PROVIDERS: PCP Internal Medicine; Visit Provider Urology | DX: Z13.89 Encounter for screening for other disorder (principal) ==

== ENCOUNTER 2023-02-24 13:48 | Outpatient (AMB) | payer OTHER, SELFPAY ==
--- NOTE | 2023-02-24 14:02 | MHC.OFFVIS ---
Intake Intake Visit Reasons: 1 year follow up with US (02/18) Intake Note: Patient presents for follow up renal cyst/ultrasound (imaging 02/18/23) Urology Medications: none Blood Thinner: none Lock Tender Required: Yes Lock Tender Name: Cindy Accompanied by: Unknown Allergies meclizine Adverse Reaction (Verified 02/24/23 14:27) tachycardia metoclopramide Adverse Reaction (Verified 02/24/23 14:27) tachycardia Medication List - Last Reconciled 02/24/23 by MATEUSZ Balderas [ADULT PULL UPS As directed] albuterol sulfate 90 mcg/actuation (Ventolin HFA) 2 puffs inhalation QID PRN alum-mag hydroxide-simeth 400-400-40 mg/5 mL (Mylanta Maximum Strength) 10 mL PO TID PRN amitriptyline 75 mg PO DAILY atorvastatin 20 mg PO DAILY 90 days baclofen 10 mg PO BID PRN beclomethasone dipropionate 80 mcg/actuation (Qvar RediHaler) 1 inh inhalation BID blood sugar diagnostic (FreeStyle Lite Strips) TEST BLOOD SUGAR DIRECTED 3 TIMES A DAY cholecalciferol (vitamin D3) 50 mcg PO DAILY 90 days clonazepam 1 mg PO TID diaper,brief,adult,disposable (Depend Easy Fit Undergarments misc) As directed dicyclomine 20 mg PO BID erenumab-aooe (Aimovig Autoinjector) mg subcut esomeprazole magnesium 40 mg PO DAILY [FREESTYLE LITE TEST STRIPS Test blood sugar as directed 3 times a day - E11.9 -- DIABETES] FreeStyle Lite Meter (blood-glucose meter) As directed NS gabapentin 300 mg PO BEDTIME lancets (FreeStyle Lancets) As directed- 3 times a day linaclotide (Linzess) 290 mcg PO QAM 30 days liraglutide (Victoza 3-Shamir) 1.2 mg (0.2 mL) subcut DAILY melatonin 6 mg PO DAILY metformin 500 mg PO BID 90 days methylcellulose (laxative) (Fiber Laxative (methylcellulose)) 500 mg PO BID 30 days miconazole nitrate 2% (Miconazole-7) 1 appful vaginal BEDTIME 7 days miconazole nitrate 2% 1 appl topical BID miscellaneous medical supply 1 ea miscellaneous DAILY MDD 1 per night NS montelukast 10 mg PO DAILY 90 days onabotulinumtoxinA (Botox) units IM ONCE ondansetron 4 mg PO TID pen needle, diabetic (Comfort EZ Pen Sawyer) As directed daily pioglitazone 30 mg PO DAILY 90 days propranolol 80 mg PO BID sennosides (senna) 17.2 mg (2 x 8.6 mg) PO BEDTIME PRN 90 days sertraline 100 mg PO DAILY simethicone 180 mg PO TID topiramate 100 mg PO BID tramadol 50 mg PO TID PRN 30 days triamcinolone acetonide 1 spray intranasal DAILY ubrogepant (Ubrelvy) mg PO ziprasidone HCl (Geodon) 80 mg PO BID HPI HPI Comments History of Present Illness Details Ute is a very pleasant 47-year-old Faroese-speaking female patient of Dr. Lr who was accompanied by her family member at today's visit. She has a past medical history of allergic rhinitis, anxiety, asthma, hypertension, depression, diabetes mellitus, gastroparesis, IBS, insomnia, migraines, obesity, obstructive sleep apnea, hypercholesteremia, spondylosis of lumbar region without myelopathy or radiculopathy and vitamin-D deficiency. She presents to the office today for follow-up of her complex left renal cyst. Recent imaging results reviewed with the patient and her family today. Right kidney with no calculi, lesions, and or hydronephrosis noted. Left kidney with again noted similar appearance of mid pole complex cyst with calcifications measuring 5.7 x 5.6 x 5.9 cm in size. Patient with previous MRI imaging in 2019 as well as 2020 which did not demonstrate any solid component nodularity or enhancement. Discussed at length potential causes for renal cysts. Discussed continuing with interval surveillance imaging monitoring. Patient otherwise denies any bothersome urinary issues or concerns at this time. In office urinalysis results reviewed with the patient today. She denies urinary urgency, urinary frequency, incontinence, nocturia, hematuria, dysuria, foul smelling urine, changes to urinary stream, flank pain, fever, and or chills. She is happy with her current voiding parameters. [facility] Medical History Allergic rhinitis Anxiety Asthma Benign essential hypertension Biliary dyskinesia Depression Diabetes mellitus Diarrhea Elevated LFTs Elevated TSH Gastroparesis IBS (irritable bowel syndrome) Insomnia Migraine Morbid obesity with BMI of 40.0-44.9, adult Obesity (BMI 30-39.9) Obstructive sleep apnea Overactive bladder Pure hypercholesterolemia 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 myelopathy or radiculopathy Vitamin D deficiency Surgical History History of cardiac cath History of surgery of head Hx of colonoscopy (~03/2018) Hx of endoscopy Hx of hysterectomy (~08/2011) Hx of tubal ligation Family History Father Diabetes Hypertension Heart problem Mother Arthritis Diabetes Hypertension Maternal Grandmother Breast cancer, Onset Age: 72 Family/Other Diabetes Hypertension Heart problem Social History Household Members: Spouse Housing: House Alcohol intake: current Alcohol intake frequency: holidays/special occasions only Patient Tobacco Use Status: Never used Tobacco e-Cigarette/Vaping Use: Never Used Second Hand Smoke Exposure: No Advance Directives Date on File: 03/20/16 service: No Current occupational status: disabled Cognitive needs: No Hearing needs: No Vision needs: Yes Female Reproductive History Menstrual Age of Menarche: 13 Review of Systems Const Reports as per HPI Eyes Reports no additional complaints ENT Reports no additional complaints Card Reports as per HPI Resp Reports as per HPI GI Reports as per HPI Reports as per HPI Musc Reports as per HPI Psych Reports as per HPI Endo Reports as per HPI Physical Exam Const General: cooperative, comfortable, no acute distress, well developed, alert and awake Orientation/consciousness: patient oriented x3 Limitations: no limitations HEENT Head: Yes normal to inspection, Yes normocephalic and Yes atraumatic Ears: hearing grossly normal bilaterally Eyes General: appearance normal, both eyes and all related structures Neck Neck: Yes normal visual inspection and Yes trachea midline Chest Chest palpation & inspection: normal inspection of the chest Resp Effort & Inspection: normal respiratory effort and able to speak in complete sentences Cardio Rate: regular rate GI Inspection: Yes normal to inspection General: Yes no CVA tenderness Back/Spine/Pelvis Back: no CVA tenderness Skin General skin exam: no rashes or lesions noted Neuro General: patient oriented x3 Extrem General: Yes normal to inspection Psych Appearance: grossly normal and well kempt Mental Status: mental status grossly normal Speech and movement: Normal speech and movement present and Clear speech present Affect: normal affect Attitude: cooperative Thought process: Normal thought process present Thought content: Normal thought content present Insight: Fair insight present (Psych) Judgement: Fair judgement present (Psych) Results AMB Urinalysis, Automated UA Leukoctes 0 Lexi/uL Last Edit by [employer] on 02/24/23 14:20 UA Nitrite Negative Last Edit by [employer] on 02/24/23 14:20 UA Urobilinogen 0.2 mg/dL Last Edit by [employer] on 02/24/23 14:20 UA Protein 0 mg/dL Last Edit by [employer] on 02/24/23 14:20 UA pH 6.5 Last Edit by [employer] on 02/24/23 14:20 UA Blood 0 Keo/uL Last Edit by [employer] on 02/24/23 14:20 UA Specific [place] 1.010 Last Edit by [employer] on 02/24/23 14:20 UA Ketone Negative Last Edit by [employer] on 02/24/23 14:20 UA Bilirubin 0 mg/dL Last Edit by [employer] on 02/24/23 14:20 UA Glucose 0 mg/dL Last Edit by [employer] on 02/24/23 14:20 Results Reviewed Results Reviewed: Laboratory Last Values Urine pH (Auto) 6.5 02/24/23 14:09 Specific [place] (Auto) 1.010 02/24/23 14:09 Urine Protein (Auto) 0 mg/dL 02/24/23 14:09 Glucose (UA)(Auto) 0 mg/dL 02/24/23 14:09 Urine Ketones (Auto) Negative 02/24/23 14:09 Urine Blood (Auto) 0 Keo/uL 02/24/23 14:09 Urine Nitrite (Auto) Negative 02/24/23 14:09 Urine Bilirubin (Auto) 0 mg/dL 02/24/23 14:09 Urine Urobilinogen (Auto) 0.2 mg/dL 02/24/23 14:09 Leukocyte Esterase (Auto) 0 Lexi/uL 02/24/23 14:09 Date of Service: 01/21/23 EXAMINATION: US COMPLETE ABDOMEN WITH LIVER ELASTOGRAPHY FINDINGS: PANCREAS: Normal. The visualized pancreatic head and body are normal in appearance. The remainder of the pancreas is obscured from visualization by the overlying bowel gas.? ABDOMINAL AORTA: The proximal, middle, and distal aortic segments are normal in caliber.? INFERIOR VENA CAVA: Visualized portions are normal.? LIVER: There is again noted to be increased echogenicity diffusely within the liver consistent with fatty infiltration/hepatocellular disease. No focal mass or intrahepatic bile duct dilatation is seen. The right lobe measures 18.1 cm in length.? The left lobe measures 13.7 cm in length.? Portal flow is hepatopedal. Shear wave liver elastography median stiffness is 1.87 m/s (reference: normal median stiffness is 1.3 m/s or less). IQR/median stiffness to assess sampling precision is 0.07 (reference: good quality data set is IQR/median stiffness of 0.15 or less). GALLBLADDER: There is again noted to be a non-mobile 5 x 3 x 4 mm echogenic structure consistent with cholesterol polyp. No gallbladder wall thickening is seen. No abnormal pericholecystic fluid collection is seen. No fluid within the gallbladder wall is noted.? COMMON BILE DUCT: Normal in caliber measuring 0.5 cm in diameter. RIGHT KIDNEY: Normal. No hydronephrosis. No renal calculi or focal parenchymal lesions. The kidney measures 12.7 cm in maximum dimension. LEFT KIDNEY: There is again noted to be similar appearance of a midpole complex cyst with calcification measuring 5.7 x 5.6 x 5.9 cm in size. On previous study dating back to 02/24/2018, it measured approximately 5 x 4 x 3.5 cm in size. MRI of 07/01/2018 did not show any solid component or internal vascularity. MRI of 12/14/2020 again did not demonstrate any solid component, nodularity, or enhancement. No hydronephrosis identified. No definite suspicious solid mass is seen. The kidney measures 11.4 cm in maximum dimension. SPLEEN: Normal. The spleen measures 11.6 cm in maximum dimension. FREE FLUID: None.? IMPRESSION: 1. Essentially stable left renal complex cyst with calcification. ? 2. Increased echogenicity of the liver consistent with fatty infiltration/hepatocellular disease. ? 3. Stable gallbladder polyp. ? 4. Liver Elastography: Measurements are suggestive of compensated advanced chronic liver disease but need further test for confirmation. Assessment & Plan Assessment & Plan (1) Renal cyst: Comment: Left renal cyst 4.5 cm Code(s): N28.1 - Cyst of kidney, acquired Plan In office urinalysis results reviewed with the patient today; as noted above. Recent imaging results reviewed with the patient today; as noted above; stable when compared to previous imaging Patient denies any bothersome urinary issues or concerns at this time. Discussed, educated, encouraged on the importance of drinking plenty of water daily. Discussed at length importance of managing diabetes for overall health and well-being. Will obtain renal ultrasound in 1 year. Follow-up in 1 year with imaging to be completed prior; or sooner with any issues, concerns, and or questions. Orders: Orders US renal BI 364 Days N28.1 - Cyst of kidney, acquired AMB Urinalysis Automated Today Z13.9 - Encounter for screening, unspecified Patient Instructions: The patient had an opportunity to ask questions regarding the treatment plan. All questions were answered. Physical exam, labs, and imaging were discussed and reviewed in detail. As well as risks, benefits, and discussion of treatment choices. No major barriers to understanding were identified. The patient expressed understanding and agreement with the above treatment plan. The patient was made aware they should contact our office by phone for worsening of their current condition, the appearance of new symptoms, or with any questions or concerns. Compliance is encouraged with any medications and follow up testing that is ordered. It is a privilege to be allowed the opportunity to participate in? your urological care.? Again, if you have any questions or concerns If you have any questions or concerns please do not hesitate to contact me. The office is [phone]. This note is constructed using voice recognition software. While every effort has been made to ensure accuracy industrial maintenance technician errors may have been included. Yours sincerely, MATEUSZ Balderas Coding Level of Care Code Est Pt Level 3 (73792) Diagnoses Renal cyst N28.1
== END 2023-02-24 14:44 | disposition home or self-care (01) ==
PROVIDERS: PCP Internal Medicine; Visit Provider Nurse Practitioner Family
DX: N28.1 Cyst of kidney, acquired (principal); Z13.9 Encounter for screening, unspecified
CPT/HCPCS: 99213

== ENCOUNTER → 2023-02-24 13:48 | Outpatient (BNVA) | payer OTHER, SELFPAY | PROVIDERS: Visit Provider Nurse Practitioner Family | DX: N28.1 Cyst of kidney, acquired (principal); R30.0 Dysuria; E11.9 Type 2 diabetes mellitus without complications; E55.9 Vitamin D deficiency, unspecified | CPT/HCPCS: 81003; 99212 ==

== ENCOUNTER 2023-02-26 08:52 | Outpatient (REF) | payer OTHER, SELFPAY ==
--- NOTE | ~2023-02-26 | MR_ITS ---
EXAMINATION: MR LUMBAR SPINE WITHOUT CONTRAST CLINICAL INFORMATION: Lower back pain and bilateral leg pain COMPARISON: MR lumbar spine 09/14/2021 TECHNIQUE: MRI of the lumbar spine was obtained using routine sequences without contrast. FINDINGS: Normal anatomic alignment. No suspicious marrow signal or focal osseous lesion. Mixed type I and type II endplate marrow signal changes at L5-S1. The vertebral body heights are maintained. Moderate disc desiccation and height loss at L5-S1. The conus medullaris terminates at the level of L2. The distal spinal cord is normal in appearance. The cauda equina nerve roots appear normal. Redemonstration of thin fatty infiltration of the filum terminale. No significant abnormalities of the paraspinal musculature. Limited evaluation of the intra-abdominal structures without significant abnormalities. Partially visualized large left renal cyst. The abdominal aorta is of normal contour and caliber. SPINAL LEVELS: T12-L1: No significant spinal canal or neural foraminal narrowing L1-L2: No significant spinal canal or neuroforaminal narrowing. L2-L3: No significant spinal canal or neuroforaminal narrowing. L3-L4: No significant spinal canal or neuroforaminal narrowing. L4-L5: No significant spinal canal or neuroforaminal narrowing. Mild facet arthropathy. L5-S1: Broad-based disc bulge, mild facet arthropathy. Stable subarticular zone narrowing with possible contact of the traversing S1 nerve roots and mild to moderate bilateral neural foraminal narrowing with abutment of the exiting L5 nerve roots. MR/MR lumbar spine wo con IMPRESSION: Stable degenerative disc and facet disease at L5-S1 with subarticular zone narrowing with possible contact of the traversing S1 nerve roots and mild to moderate bilateral neural foraminal narrowing with abutment of the exiting L5 nerve roots..
== END 2023-02-26 08:53 | disposition home or self-care (01) ==
LOC: HO.MRI 08:52
PROVIDERS: PCP Internal Medicine; Visit Provider Physician Assistant
DX: M51.36 Other intervertebral disc degeneration, lumbar region (principal)
CPT/HCPCS: 72148

== ENCOUNTER 2023-03-19 09:31 | Outpatient (REF) | payer OTHER, SELFPAY ==
[2023-03-19 11:31] LABS: MANUAL DIFF FLAG NO
[2023-03-19 11:56] LABS: Basophils Percent Auto 0.4 % (0-2); Eosinophils Absolute Auto 0.1 X10*3/uL (0.0-0.4); Eosinophils Percent Auto 1.1 % (0-4); Hematocrit 41.7 % (37.0-47.0); Hemoglobin 13.2 g/dl (12.0-16.0); Imm Gran Abs Auto 0.03 X10*3/uL (0.00-0.03); Imm Gran Pct Auto 0.4 % (0.0-0.4); Lymphocytes Percent Auto 28.1 % (20-40); Mean Corpuscular HGB Conc 31.7 g/dl (31.0-35.0); Mean Corpuscular Hemoglobin 29.9 pg (27.0-33.0); Mean Corpuscular Volume 94.6 fL (80.0-98.0); Mean Platelet Volume 10.8 fL (9.4-12.3); Monocytes Absolute Auto 0.5 X10*3/uL (0.1-1.2); Monocytes Percent Auto 7.4 % (2-11); Neutrophils Absolute Auto 4.5 x10*3/uL (2.0-8.3); Neutrophils Percent Auto 62.6 % (45-73); Platelet Count 313 X10*3/uL (160-400); Red Blood Count 4.41 X10*6/uL (4.20-5.50); Red Cell Distribution Width 13.1 % (11.0-16.0); White Blood Count 7.3 X10*3/uL (4.8-10.8)
[2023-03-19 12:24] LABS: Estimated Average Glucose 160 mg/dL; Hemoglobin A1c % 7.2 % (<6.0)
[2023-03-19 12:58] LABS: Alanine Aminotransferase 24 U/L (0-31); Alkaline Phosphatase 98 U/L (39-117); Anion Gap 12 (12-20); Aspartate Amino Transferase 20 U/L (5-31); Bilirubin Total 0.2 mg/dL (0.0-1.0); Blood Urea Nitrogen 11 mg/dL (9-16); Calcium 10.1 mg/dL (8.4-10.2); Carbon Dioxide 23 mmol/L (22-29); Chloride 108 mmol/L (96-108); Cholesterol 188 mg/dL (<200); Estimated Glomerular Filt Rate > 60; Glucose Fasting 135 mg/dL (60-99); HDL Cholesterol 54 mg/dL (>40); LDL Cholesterol Calculated 83 mg/dL (<100); Sodium 139 mmol/L (135-145); Total Protein 7.2 g/dL (6.5-8.0); Triglycerides 257 mg/dL (<150)
[2023-03-19 13:20] LABS: TSH reflex Free T4 3.27 uIU/mL (0.32-4.0); Vitamin D 25-OH Total 42.3 ng/mL (>30)
[2023-03-19 13:27] LABS: Folate 13.2 ng/mL (> or = 4.0); Vitamin B12 1166 pg/mL (200-900)
[2023-03-19 13:31] LABS: Appearance Urine Clear; Color Urine Yellow; Glucose Urine UA Negative (Negative); Leukocyte Esterase Urine Negative (Negative); Nitrite Urine Negative (Negative); PH 7.5 (5.0-9.0); Urine Blood Negative (Negative); Urine Ketones Negative (Negative); Urine Protein Negative (Neg-Trace)
[2023-03-19 14:10] LABS: Creatinine Urine 33.32 mg/dL; Microalbumin Urine < 5.0 mg/L
== END 2023-03-19 09:32 | disposition home or self-care (01) ==
LOC: HO.HMGCLDS 09:31
PROVIDERS: PCP Internal Medicine; Visit Provider Internal Medicine
DX: E78.00 Pure hypercholesterolemia, unspecified (principal); E11.9 Type 2 diabetes mellitus without complications; R30.0 Dysuria; E55.9 Vitamin D deficiency, unspecified; E53.8 Deficiency of other specified B group vitamins; I10 Essential (primary) hypertension
CPT/HCPCS: 36415; 80053; 80061; 81003; 82043; 82306; 82570; 82607; 82746; 83036; 84443; 85025

== ENCOUNTER 2023-03-24 10:40 | Outpatient (AMB) | payer OTHER, SELFPAY ==
[2023-03-24 10:41] VITALS: BP 122/80; PULSE 80; O2SAT 98; BMI 41.7
--- NOTE | 2023-03-24 10:41 | A.OFFPC_ITS ---
Vital Signs 03/24/23 10:41 Height 5 ft 4 in Weight 243 lb 2 oz BMI 41.7 BP 122/80 Blood Pressure Location Lt brachial Position Sitting Pulse 80 Pulse Source Pulse Oximeter Pulse Oximetry (%) 98 Oxygen Delivery Method Room Air Intake Visit Reasons: DM, hyperlipidemia, migraine Fleet Assistant Required: No Accompanied by: Self / Same As Patient Allergies meclizine Adverse Reaction (Verified 03/24/23 11:01) tachycardia metoclopramide Adverse Reaction (Verified 03/24/23 11:01) tachycardia Medication List - Last Reconciled 03/24/23 by Villa Lr MD [ADULT PULL UPS As directed] albuterol sulfate 90 mcg/actuation (Ventolin HFA) 2 puffs inhalation QID PRN alum-mag hydroxide-simeth 400-400-40 mg/5 mL (Mylanta Maximum Strength) 10 mL PO TID PRN amitriptyline 75 mg PO DAILY atorvastatin 20 mg PO DAILY 90 days baclofen 10 mg PO BID PRN beclomethasone dipropionate 80 mcg/actuation (Qvar RediHaler) 1 inh inhalation BID blood sugar diagnostic (FreeStyle Lite Strips) TEST BLOOD SUGAR DIRECTED 3 TIMES A DAY cholecalciferol (vitamin D3) 50 mcg PO DAILY 90 days clonazepam 1 mg PO TID diaper,brief,adult,disposable (Depend Easy Fit Under[place] [facility] [place] As directed dicyclomine 20 mg PO BID erenumab-aooe (Aimovig Autoinjector) mg subcut esomeprazole magnesium 40 mg PO DAILY [FREESTYLE LITE TEST STRIPS Test blood sugar as directed 3 times a day - E11.9 -- DIABETES] FreeStyle Lite Meter (blood-glucose meter) As directed NS gabapentin 300 mg PO BEDTIME lancets (FreeStyle Lancets) As directed- 3 times a day linaclotide (Linzess) 290 mcg PO QAM 30 days liraglutide (Victoza 3-Shamir) 1.2 mg (0.2 mL) subcut DAILY melatonin 6 mg PO DAILY metformin 500 mg PO BID 90 days methylcellulose (laxative) (Fiber Laxative (methylcellulose)) 500 mg PO BID 30 days miconazole nitrate 2% (Miconazole-7) 1 appful vaginal BEDTIME 7 days miconazole nitrate 2% 1 appl topical BID miscellaneous medical supply 1 ea miscellaneous DAILY MDD 1 per night NS montelukast 10 mg PO DAILY 90 days onabotulinumtoxinA (Botox) units IM ONCE ondansetron 4 mg PO TID pen needle, diabetic (Comfort EZ Pen [place]) As directed daily pioglitazone 30 mg PO DAILY 90 days propranolol 80 mg PO BID sennosides (senna) 17.2 mg (2 x 8.6 mg) PO BEDTIME PRN 90 days sertraline 100 mg PO DAILY simethicone 180 mg PO TID topiramate 100 mg PO BID tramadol 50 mg PO TID PRN 30 days triamcinolone acetonide 1 spray intranasal DAILY ubrogepant (Ubrelvy) mg PO ziprasidone HCl (Geodon) 80 mg PO BID Tobacco use date assessed: 03/24/23 Dental Screening Dental Screen Date: 03/24/23 Did you have a dental visit in the last 12 months?: Yes Did you have a dental problem in the last 6 months where you did not have access to dental care?: No Was dental information given to patient?: Patient has dentist HPI DM, hyperlipidemia, migraine HPI Details Patient comes in today for her follow up visit States that she has been experiencing on and off symptoms of dry mouth lately Notes that she sometimes has some trouble swallowing because of her increasing dry mouth and throat sensation Has also noticed frequent dryness of her eyes lately - is not sure if this is related to some of her meds or to the changing of the seasons recently States that she feels okay otherwise She denies any headaches or dizziness; denies any fever or sore throat Denies any exertional chest pains, no increased SOB No nausea/vomiting, no abdominal pain No change in bowel habits noted Had her follow up labs done a few days ago - to discuss her results [facility] Medical History Overactive bladder Diarrhea Morbid obesity with BMI of 40.0-44.9, adult Biliary dyskinesia Elevated TSH Obesity (BMI 30-39.9) Depression Anxiety Insomnia Obstructive sleep apnea Vitamin D deficiency 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 myelopathy or radiculopathy Elevated LFTs Allergic rhinitis Asthma Migraine Pure hypercholesterolemia Benign essential hypertension Diabetes mellitus IBS (irritable bowel syndrome) Gastroparesis Surgical History History of cardiac cath Hx of tubal ligation Hx of colonoscopy (~03/2018) Hx of endoscopy History of surgery of head Hx of hysterectomy (~08/2011) Family History Father Diabetes Hypertension Heart problem Mother Arthritis Diabetes Hypertension Maternal Grandmother Breast cancer, Onset Age: 72 Family/Other Diabetes Hypertension Heart problem Social History Household Members: Spouse Housing: House Alcohol intake: current Alcohol intake frequency: holidays/special occasions o nly Patient Tobacco Use Status: Never used Tobacco e-Cigarette/Vaping Use: Never Used Second Hand Smoke Exposure: No Advance Directives Date on File: 03/20/16 service: No Current occupational status: disabled Cognitive needs: No Hearing needs: No Vision needs: Yes Female Reproductive History Menstrual Age of Menarche: 13 Questionnaire PHQ-9 Over the last 2 weeks, how often have you been bothered by any of the following problems? 1. Little interest or pleasure in doing things: not at all 2. Feeling down, depressed, or hopeless: not at all 3. Trouble falling or staying asleep, or sleeping too much: not at all 4. Feeling tired or having little energy: not at all 5. Poor appetite or overeating: not at all 6. Feeling bad about yourself - or that you are a failure or have let yourself or your family down: not at all 7. Trouble concentrating on things, such as reading the newspaper or watching television: not at all 8. Moving or speaking so slowly that other people could have noticed. Or the opposite - being so fidgety or restless that you have been moving around a lot more than usual: not at all 9. Thoughts that you would be better off or of hurting yourself in some way: not at all Total score: 0 Depression Screening Interpretation: Negative (is on Rx) 30763 - PHQ-9 Billing: Yes Source: Developed by Drs. Raymond Plunkett, Meaghan Art, Keshav taylor nd colleagues, with an educational david from [employer]. Thrive Questionnaire Date Thrive assessed: 03/24/23 I am a: Patient What is your living situation today?: I have a steady place to live Within the past 12 months, did the food you bought not last and you didn't have the money to get more?: Never true Within the past 12 months, did you worry whether your food would run out before you got money to buy more?: Never true Do you have trouble paying for medicines?: No Do you have trouble getting transportation to medical appointments?: No Do you have trouble paying your heating and electricity bill?: No Do you have trouble taking care of your child, family member or friend?: No Do you have trouble with day-to-day activities such as bathing, preparing meals, shopping, managing finances, etc.?: No Are you currently unemployed and looking for a job?: No Are you interested in more education?: No Please select the resources that you would like help with: None Currently or been in a relationship where the following occur: no concerns reported AUDIT C Alcohol Use Questionnaire (AUDIT-C) 1. How often do you have a drink containing alcohol?: Never 3. How often do you have six or more drinks on one occasion?: Never Total Score: 0 Score Reviewed/Action Taken: Yes FADUMO-7 AMB Questionnaire FADUMO-7 Date FADUMO - 7 assessed: 03/24/23 Feeling nervous, anxious, or on edge: 0 = Not at all Not being able to stop or control worryin = Not at all Worrying too much about different things: 0 = Not at all Trouble relaxin = Not at all Being so restless that it is hard to sit still: 0 = Not at all Becoming easily annoyed or irritable: 0 = Not at all Feeling afraid as if something awful might happen: 0 = Not at all Total FADUMO-7 score (0-4 normal; 5-9 mild; 10-14 moderate; 15-21 severe): 0 Source: Developed by Drs. Raymond Plunkett, Meaghan Art, Keshav Castro and colleagues, with an educational david from [employer]. Review of Systems Const Denies chills, Reports fatigue, Denies fever(s) and Denies headache(s) Eyes Reports dry eyes (on and off) ENT Reports dysphagia (at times lately when her mouth and throat feels dry), Denies dizziness, Reports dry mouth, Denies otalgia, Denies headache(s), Denies odynophagia and Denies sore throat Card Reports chest pain (on and off - (+) sharp pains over her chest wall at times), Denies chest pain with activity, Denies palpitations and Reports dyspnea on exertion Resp Denies chest congestion, Denies cough, Reports dyspnea on exertion and Denies wheezing GI Denies abdominal pain, Reports dysphagia (at times lately when her mouth and throat feels dry), Denies heartburn, Denies diarrhea, Denies nausea, Denies odynophagia and Denies vomiting Denies hematuria, Denies difficulty voiding, Reports nocturia, Denies dysuria and Reports urinary incontinence Musc Reports back pain (over the lower back - chronic) and Reports arthralgias (on and off) Neuro Denies dizziness and Denies headache(s) Endo Reports fatigue and Denies palpitations Aller/Immun Denies wheezing Physical exam (Primary Care) Vital Signs: Last Vital Signs Pulse 80 03/24/23 10:41 BP 122/80 03/24/23 10:41 Pulse Ox 98 03/24/23 10:41 Oxygen Delivery Method Room Air 03/24/23 10:41 BMI result Body Mass Index 41.7 Tobacco/Smoking Status: Tobacco use Status Tobacco use date assessed 03/24/23 03/24/23 10:47 Patient Tobacco Use Status Never used Tobacco 03/24/23 10:47 e-Cigarette/Vaping Use Never Used 03/24/23 10:47 PHQ-9: PHQ-9 Score PHQ-9: Total score 0 03/24/23 10:47 Depression Screening Interpretation: Negative (is on Rx) Thrive Assessment: Date of Thrive Assessment Date Thrive assessed 03/24/23 03/24/23 10:47 Currently or been in a relationship where the following occur: no concerns reported Const General: no acute distress and alert HENMT Ears: TM's normal bilaterally and EAC's normal Throat: Yes posterior oropharynx normal and Yes tonsils normal (no TP congestion noted) Neck Neck: Yes no lymphadenopathy and Yes supple Chest Other: (+) reproducible tenderness on deep palpation over the anterior chest wall and ribs Resp Auscultation: clear to auscultation bilaterally, no rales and no wheezes Cardio Rate: regular rate Rhythm: regular rhythm Heart sounds: no murmurs GI Palpation (GI): Soft to palpation, nontender and no guarding Auscultation: normal bowel sounds Back/Spine/Pelvis Thoracic/Lumbar Spine: lumbar spinal tenderness Extrem General: Yes no clubbing, cyanosis or edema Results Reviewed Results Reviewed: Laboratory Tests 03/19/23 09:40 WBC 7.3 Hgb 13.2 Hct 41.7 Plt Count 313 Sodium 139 Potassium 4.0 Creatinine 0.72 Estimated GFR > 60 Fasting Glucose 135 H Hemoglobin A1c % 7.2 H Calcium 10.1 AST 20 ALT 24 Triglycerides 257 H Cholesterol 188 LDL Cholesterol, Calc 83 HDL Cholesterol 54 Vitamin B12 1166 H 25-OH Vitamin D Total 42.3 TSH 3.27 Urine pH 7.5 Ur Specific [place] 1.010 Urine Protein Negative Urine Glucose (UA) Negative Urine Blood Negative Assessment and Plan Assessment & Plan (1) Diabetes mellitus: Comment: taking Victoza, Metformin & Actos Code(s): E11.9 - Type 2 diabetes mellitus without complications Qualifiers: Diabetes mellitus type: type 2 Diabetes mellitus intermediate designer insulin use: without custodial use Diabetes mellitus complication status: without complication Qualified Code(s): E11.9 - Type 2 diabetes mellitus without complications Plan: HgbA1c was at 7.2% on her recent labs (was at 7.3% a few months ago) - goal is HgbA1c of < 7.0% Reinforced diabetic diet Continue Victoza 18 mg/ 3 mL 0.2 mL QD, Metformin 500 mg BID and Pioglitazone 30 mg QD (2) Pure hypercholesterolemia: Code(s): E78.00 - Pure hypercholesterolemia, unspecified Plan: Results of her labs done a few days ago reviewed and discussed with patient - cautioned that all of her cholesterol numbers have increased slightly from previous although they are still within acceptable range Reinforced low cholesterol diet Continue Atorvastatin 20 mg QD for now Will recheck her labs and fasting lipids in 4 months for follow-up (3) Benign essential hypertension: Code(s): I10 - Essential (primary) hypertension Plan: Reinforced low sodium diet - goal is systolic BP of at least 120 to 130 mm or less Patient instructed to continue monitoring her blood pressure regularly - patient has not needed any Rx for her BP for the past year or two now although she is on Propranolol 80 mg BID for her migraine headaches (4) Recurrent chest pain: Code(s): R07.9 - Chest pain, unspecified Plan: Is most likely musculoskeletal in etiology - costochondritis States that her recurrent chest pains have subsided a lot recently Patient underwent coronary angiography on 06/11/2022 after her cardiac stress testing done a few months ago came back abnormal - myocardial perfusion study revealed (+) distal lateral, apical and inferoapical ischemia Cardiac catheterization revealed completely normal coronaries with no atherosclerotic lesions She is again reassured that she presently does not have any coronary artery disease and that chest pains are non-cardiac in origin (5) Migraine: Code(s): G43.909 - Migraine, unspecified, not intractable, without status migrainosus Qualifiers: Migraine type: unspecified Status migrainosus presence: without status migrainosus Intractability: not intractable Qualified Code(s): G43.909 - Migraine, unspecified, not intractable, without status migrainosus Plan: Continue Topiramate 100 mg BID, Propranolol 80 mg BID and Fioricet 50-325 mg 1 tablet every 4-6 hours as needed Continue Ubrelvy 100 mg PRN; patient also receives Botox injection every 3 months from Neurology, and states that her migraine headaches have been much better controlled lately on her current Rx Follow-up with Neurology (Dr. Lieberman) every 3 months as scheduled (6) Dyspnea: Code(s): R06.00 - Dyspnea, unspecified Qualifiers: Dyspnea type: dyspnea on exertion Qualified Code(s): R06.09 - Other forms of dyspnea Plan: Patient continues to c/o recurrent/frequent dyspnea, especially with exertion Reminded again that this is most likely related to her weight and physical deconditioning She recently had a coronary angiogram dobe last year that came out completely normal She was referred to and seen by pulmonary for this a few months ago PFTs came back normal and she was advised of the same - that her symptoms are likely a combination of her asthma, weight, sleep apnea and physical deconditioning Is advised that she can continue using her Albuterol inhaler as needed for symptomatic relief (7) Asthma: Comment: SHE CONTINUES TO COMPLAIN OF SHORTNESS OF BREATH ON WALKING, AND SOMETIME WAKES UP AT NIGHT PULMONARY FUNCTION TEST IS ESSENTIALLY NORMAL. I THINK SHORTNESS OF BREATH ON EXERTION IS RELATED TO HER MORBID OBESITY AND ALSO SLEEP APNEA. HOWEVER SUBJECTIVELY SHE HAS SYMPTOMS OF BRONCHIAL ASTHMA AND ALLERGIC RHINITIS. SO , IT IS OKAY FOR HER TO KEEP USING Q WERE-81 INHALATION B.I.D. AND ALBUTEROL 2 PUFFS Q 4-6 HOURS ONLY P.R.N.. Code(s): J45.909 - Unspecified asthma, uncomplicated Qualifiers: Asthma severity: moderate Asthma persistence: persistent Asthma complication type: uncomplicated Qualified Code(s): J45.40 - Moderate persistent asthma, uncomplicated Plan: Continue QVAR RediHaler 80 mcg 1 puff twice a day and ProAir HFA 2 puffs 4 times a day as needed (8) Allergic rhinitis: Comment: SYMPTOMS OF CHRONIC ALLERGIC RHINITIS SEEM TO BE UNDER CONTROLLED. ADVISED TO CONTINUE USING MONTELUKAST 10 MG DAILY. Code(s): J30.9 - Allergic rhinitis, unspecified Qualifiers: Allergic rhinitis trigger: unspecified Allergic rhinitis seasonality: unspecified Qualified Code(s): J30.9 - Allergic rhinitis, unspecified Plan: Continue Montelukast 10 mg QD and Nasacort nasal spray 1 spray to each nostril QD (9) Obstructive sleep apnea: Comment: uses CPAP THIS PATIENT IS KNOWN TO HAVE OBSTRUCTIVE SLEEP APNEA SINCE 2019 HAS BEEN USING CPAP REGULARLY. SHE IS BEING FOLLOWED BY AND MANAGED FOR SLEEP APNEA BY HER NEUROLOGIST, DR. LIEBERMAN . CLAIMS THAT SHE DOES USE THE CPAP EVERY NIGHT. Code(s): G47.33 - Obstructive sleep apnea (adult) (pediatric) Plan: Continue using her CPAP device every night when sleeping Follow up with Sleep Medicine as scheduled (10) 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 myelopathy or radiculopathy: Code(s): M47.816 - Spondylosis without myelopathy or radiculopathy, lumbar region Plan: Reinforced activity and weight-lifting restrictions Continue Tramadol 50 mg TID PRN but patient states that she has been experiencing increased pain lately over her lower back and her Tramadol alone is no longer helping enough; will consider starting her on Gabapentin to help with her chronic low back pain if this continues Repeat lumbar spine x-rays done last year showed (+) degenerative changes at L5- S1 and lower lumbar facet arthritis Lumbar spine MRI done on 09/14/2021 revealed a severe disc height loss with mild subchondral endplate edema at L5-S1. The bulging this flattens the ventral thecal sac with encroachment on the subarticular zones and abutment of both exiting L5 nerve roots She has gone back to following up with pain management recently and received injections into her lower back last month, with (+) improvement of her low back pain Follow up with pain management as scheduled (11) Chronic idiopathic constipation: Code(s): K59.04 - Chronic idiopathic constipation Plan: Reinforced increased oral fluids and dietary fiber Continue Linzess 290 mcg QD, MOM 5 ml Q HS and Fiber Laxative daily Follow up with GI as scheduled for continuing management of her chronic constipation (12) GERD (gastroesophageal reflux disease): Code(s): K21.9 - Gastro-esophageal reflux disease without esophagitis Qualifiers: Esophagitis presence: without esophagitis Qualified Code(s): K21.9 - Gastro-esophageal reflux disease without esophagitis Plan: Dietary restrictions reinforced Continue Pantoprazole 40 mg once a day and Famotidine 20 mg twice a day as needed (13) Biliary dyskinesia: Code(s): K82.8 - Other specified diseases of gallbladder Plan: HIDA scan with CCK done in November 2020 revealed poor gallbladder emptying and low gallbladder ejection fraction consistent with impaired gallbladder contractility and suggests chronic cholecystitis Was referred to and seen by surgery last year and advised that her symptoms are more suggestive of GERD and recommended no surgery at the time but patient was advised to call if her symptoms get worse (14) Elevated LFTs: Code(s): R79.89 - Other specified abnormal findings of blood chemistry Plan: Improved - is most likely related to her weight (hepatosteatosis) LFTs on her recent labs remain normal - will continue to monitor her LFTs regularly (15) Vitamin D deficiency: Code(s): E55.9 - Vitamin D deficiency, unspecified Plan: Corrected on her recent labs - continue Vitamin D3 2000 units QD (16) Dry mouth and eyes: Code(s): R68.2 - Dry mouth, unspecified; H04.123 - Dry eye syndrome of bilateral lacrimal glands Plan: Advised that these may be side effects of her Propranolol Rx Will check her for Sjogren's Ab when she goes for her follow up labs in a few months for further evaluation and if these come out positive, will then refer her to rheumatology for further management (17) Elevated vitamin B12 level: Code(s): R74.8 - Abnormal levels of other serum enzymes Plan: Patient is advised that her Vitamin B12 level has been elevated significantly for a while now Have reviewed her meds together with patient and she does not appear to be taking anything with Vitamin B12, including Vitamin B complex at this time so unclear as to why her B12 level is significantly elevated Will recheck this in 4 months and if her B12 remains over 1000, will consider referring her to hematology for further evaluation (18) Overactive bladder: Code(s): N32.81 - Overactive bladder Plan: Follow up with urology as scheduled Uses Adult pull ups to help manage her OAB (19) Insomnia: Code(s): G47.00 - Insomnia, unspecified Qualifiers: Insomnia type: unspecified Qualified Code(s): G47.00 - Insomnia, unspecified Plan: Sleep hygiene reinforced Continue Zolpidem 10 mg Q HS PRN (20) Anxiety: Code(s): F41.9 - Anxiety disorder, unspecified Plan: Continue Clonazepam 1 mg Q HS PRN (21) Depression: Code(s): F32.9 - Major depressive disorder, single episode, unspecified Qualifiers: Depression Type: major depressive disorder Major depression recurrence: recurrent Active/Remission status: currently active Major depression episode severity: unspecified Qualified Code(s): F33.9 - Major depressive disorder, recurrent, unspecified Plan: Continue Geodon 60 mg twice a day, Sertraline 50 mg once a day, Amitriptyline 150 mg once a day at bedtime and Ziprasidone 80 mg twice a day Follow-up with Psychiatry as scheduled (22) Morbid obesity with BMI of 40.0-44.9, adult: Comment: BMI=42.1 SHE HAS BEEN MORBIDLY OBESE FOR MANY YEARS. SHE TOLD ME THAT SHE IS TRYING TO CUT DOWN THE INTAKE OF FOOD AND TRYING TO WALK DAILY. BECAUSE OF DYSPNEA ON MINIMAL EXERTION SHE IS NOT ABLE TO DO MUCH EXERCISE OR WALK AROUND. Code(s): E66.01 - Morbid (severe) obesity due to excess calories; Z68.41 - Body mass index [BMI] 40.0-44.9, adult Plan: Reinforced diet/exercise as tolerated /lose weight Plan Follow up in 4 months Orders: Orders Lipid Panel 4 Months E78.00 - Pure hypercholesterolemia, unspecified Comprehensive Holly. Panel Fast 4 Months E78.00 - Pure hypercholesterolemia, unspecified TSH reflex Free T4 4 Months E78.00 - Pure hypercholesterolemia, unspecified UA CC w/rflx Micro + Cult 4 Months R30.0 - Dysuria Vitamin D 25-OH Total 4 Months E55.9 - Vitamin D deficiency, unspecified Complete Blood Count Auto Diff 4 Months I10 - Essential (primary) hypertension Microalbumin, Random (w Creat) 4 Months E11.9 - Type 2 diabetes mellitus without complications Hemoglobin A1c 4 Months E11.9 - Type 2 diabetes mellitus without complications Vitamin B12 and Folate 4 Months E53.8 - Deficiency of other specified B group vitamins Sjogren's Antibodies 4 Months H04.123 - Dry eye syndrome of bilateral lacrimal glands, R13.10 - Dysphagia, unspecified, R68.2 - Dry mouth, unspecified C Reactive Protein 4 Months H04.123 - Dry eye syndrome of bilateral lacrimal glands, R13.10 - Dysphagia, unspecified, R68.2 - Dry mouth, unspecified LAURENT Reflex Titer and Pattern 4 Months H04.123 - Dry eye syndrome of bilateral lacrimal glands, R13.10 - Dysphagia, unspecified, R68.2 - Dry mouth, unspecified Erythrocyte Sedimentation Rate 4 Months H04.123 - Dry eye syndrome of bilateral lacrimal glands, R13.10 - Dysphagia, unspecified, R68.2 - Dry mouth, unspecified Coding Level of Care Code Est Pt Level 4 (83779) Diagnoses Type 2 diabetes mellitus without complication, without long-term current use of insulin E11.9 Diabetes mellitus type: type 2 Diabetes mellitus intermediate designer insulin use: without intermediate designer use Diabetes mellitus complication status: without complication Pure hypercholesterolemia E78.00 Benign essential hypertension I10 Recurrent chest pain R07.9 Migraine without status migrainosus, not intractable, unspecified migraine type G43.909 Migraine type: unspecified Status migrainosus presence: without status migrainosus Intractability: not intractable Dyspnea on exertion R06.09 Dyspnea type: dyspnea on exertion Moderate persistent asthma without complication J45.40 Asthma severity: moderate Asthma persistence: persistent Asthma complication type: uncomplicated Allergic rhinitis, unspecified seasonality, unspecified trigger J30.9 Allergic rhinitis trigger: unspecified Allergic rhinitis seasonality: unspecified Obstructive sleep apnea G47.33 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 myelopathy or radiculopathy M47.816 Chronic idiopathic constipation K59.04 Gastroesophageal reflux disease without esophagitis K21.9 Esophagitis presence: without esophagitis Biliary dyskinesia K82.8 Elevated LFTs R79.89 Vitamin D deficiency E55.9 Dry mouth and eyes R68.2; H04.123 Elevated vitamin B12 level R74.8 Overactive bladder N32.81 Insomnia, unspecified type G47.00 Insomnia type: unspecified Anxiety F41.9 Episode of recurrent major depressive disorder, unspecified depression episode severity F33.9 Depression Type: major depressive disorder Major depression recurrence: recurrent Active/Remission status: currently active Major depression episode severity: unspecified Morbid obesity with BMI of 40.0-44.9, adult E66.01; Z68.41
== END 2023-03-24 11:28 | disposition home or self-care (01) ==
PROVIDERS: PCP Internal Medicine; Visit Provider Internal Medicine
DX: E11.9 Type 2 diabetes mellitus without complications (principal); I10 Essential (primary) hypertension; E55.9 Vitamin D deficiency, unspecified; F41.9 Anxiety disorder, unspecified; G43.909 Migraine, unspecified, not intractable, without status migrainosus; J45.40 Moderate persistent asthma, uncomplicated; K21.9 Gastro-esophageal reflux disease without esophagitis; F33.9 Major depressive disorder, recurrent, unspecified; Z68.41 Body mass index [BMI] 40.0-44.9, adult; E66.01 Morbid (severe) obesity due to excess calories; E78.00 Pure hypercholesterolemia, unspecified; R07.9 Chest pain, unspecified
CPT/HCPCS: 99214

== ENCOUNTER 2023-04-02 09:26 | Outpatient (AMB) | payer OTHER, SELFPAY ==
--- NOTE | 2023-04-02 09:30 | MHC.OFFVISWM ---
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 Gunnery/Ordnance Officer Required: Yes Gunnery/Ordnance Officer Name: office cmi Allergies meclizine Adverse Reaction (Verified 04/02/23 09:49) tachycardia metoclopramide Adverse Reaction (Verified 04/02/23 09:49) tachycardia Medication List - Last Reconciled 04/02/23 by SANDOVAL Brown [ADULT PULL UPS As directed] albuterol sulfate 90 mcg/actuation (Ventolin HFA) 2 puffs inhalation QID PRN alum-mag hydroxide-simeth 400-400-40 mg/5 mL (Mylanta Maximum Strength) 10 mL PO TID PRN amitriptyline 75 mg PO DAILY atorvastatin 20 mg PO DAILY 90 days baclofen 10 mg PO BID PRN beclomethasone dipropionate 80 mcg/actuation (Qvar RediHaler) 1 inh inhalation BID blood sugar diagnostic (FreeStyle Lite Strips) TEST BLOOD SUGAR DIRECTED 3 TIMES A DAY cholecalciferol (vitamin D3) 50 mcg PO DAILY 90 days clonazepam 1 mg PO TID diaper,brief,adult,disposable (Depend Easy Fit Undergarments [facility]) As directed dicyclomine 20 mg PO BID erenumab-aooe (Aimovig Autoinjector) mg subcut esomeprazole magnesium 40 mg PO DAILY [FREESTYLE LITE TEST STRIPS Test blood sugar as directed 3 times a day - E11.9 -- DIABETES] FreeStyle Lite Meter (blood-glucose meter) As directed NS gabapentin 300 mg PO BEDTIME lancets (FreeStyle Lancets) As directed- 3 times a day linaclotide (Linzess) 290 mcg PO QAM 30 days liraglutide (Victoza 3-Shamir) 1.2 mg (0.2 mL) subcut DAILY melatonin 6 mg PO DAILY metformin 500 mg PO BID 90 days methylcellulose (laxative) (Fiber Laxative (methylcellulose)) 500 mg PO BID 30 days miconazole nitrate 2% (Miconazole-7) 1 appful vaginal BEDTIME 7 days miconazole nitrate 2% 1 appl topical BID miscellaneous medical supply 1 ea miscellaneous DAILY MDD 1 per night NS montelukast 10 mg PO DAILY 90 days onabotulinumtoxinA (Botox) units IM ONCE ondansetron 4 mg PO TID pen needle, diabetic (Comfort EZ Pen [place]) As directed daily pioglitazone 30 mg PO DAILY 90 days propranolol 80 mg PO BID sennosides (senna) 17.2 mg (2 x 8.6 mg) PO BEDTIME PRN 90 days sertraline 100 mg PO DAILY simethicone 180 mg PO TID topiramate 100 mg PO BID tramadol 50 mg PO TID PRN 30 days triamcinolone acetonide 1 spray intranasal DAILY ubrogepant (Ubrelvy) mg PO ziprasidone HCl (Geodon) 80 mg PO BID HPI HPI Comments History of Present Illness Details Pt is here to start the [facility] Weight Management medical weight loss program. She heard about our program from her ortho doctor. Her goal is to lose weight and achieve a healthy lifestyle as well as to improve, if not resolve, obesity related medical conditions, including DM, GINETTE, HYN, HLD. She reports first being concerned about her weight 5 years ago, highest weight to date was 350 pounds. Current weight is 244.2 pounds with a BMI of 41.9. She has tried multiple methods of weight loss including fad diets and walking without permanent results. She lives with her . She does not work. Has a hx of chest pain and abnormal ekg with w/u including nuc stress test and cardiac cath. Seen in f/u with cardiology and felt to be non-cardiac in origin given neg cardiac cath. Positive nuc stress test felt to be a false positive given neg cardiac cath after nuc stress test. She states she is able to do treadmill without chest pain but is nervous about exercise in general causing pain. She is awaiting back surgery and came to our office to try to lose weight prior to her back surgery. Surgeon, Dr Henry at [facility] PCP Dr Stover She wakes at:?630 am, and goes to bed at?930 pm. Dinner is at 4 pm. Breakfast: coffee w milk and toast or oatmeal AM snack: PB jelly sandwich or fruit Lunch: skip PM snack: crackers, coffee Dinner: rice, meat, veg, salad After dinner: fruit Other snacks: sometimes cookies ice cream Liquids: 96 oz water, 36 oz soda per week, cranberry juice 3-4 cups per week Alcohol/marijuana/tobacco intake: none Exercise: treadmill in her home. GERD score: 31 NICO score: 0 ESS score: 12 QOL score: 87 PFSH Medical History Overactive bladder Diarrhea Morbid obesity with BMI of 40.0-44.9, adult Biliary dyskinesia Elevated TSH Obesity (BMI 30-39.9) Depression Anxiety Insomnia Obstructive sleep apnea Vitamin D deficiency 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 myelopathy or radiculopathy Elevated LFTs Allergic rhinitis Asthma Migraine Pure hypercholesterolemia Benign essential hypertension Diabetes mellitus IBS (irritable bowel syndrome) Gastroparesis Surgical History History of cardiac cath Hx of tubal ligation Hx of colonoscopy (~03/2018) Hx of endoscopy History of surgery of head Hx of hysterectomy (~08/2011) Family History Father Diabetes Hypertension Heart problem Mother Arthritis Diabetes Hypertension Maternal Grandmother Breast cancer, Onset Age: 72 Family/Other Diabetes Hypertension Heart problem Social History Household Members: Spouse Housing: House Alcohol intake: current Alcohol intake frequency: holidays/special occasions only Patient Tobacco Use Status: Never used Tobacco e-Cigarette/Vaping Use: Never Used Second Hand Smoke Exposure: No Advance Directives Date on File: 03/20/16 service: No Current occupational status: disabled Cognitive needs: No Hearing needs: No Vision needs: Yes Female Reproductive History Menstrual Age of Menarche: 13 Review of Systems Const All systems reviewed & are unremarkable except as noted in HPI and below Physical Exam Const General: cooperative, healthy appearing and no acute distress Orientation/consciousness: patient oriented x3 HEENT Head: Yes normal to inspection Ears: hearing grossly normal bilaterally General nose exam: Normal external nose present Face and sinus: Yes normal facial exam Eyes General: appearance normal, both eyes and all related structures Resp Effort & Inspection: normal respiratory effort Auscultation: clear to auscultation bilaterally Cardio Rate: regular rate Rhythm: regular rhythm Heart sounds: S1 normal heart sound present and S2 normal heart sound present GI Inspection: Yes normal to inspection, No distended and Yes obesity Palpation (GI): Soft to palpation, nontender and no guarding Auscultation: normal bowel sounds Skin General skin exam: no rashes or lesions noted Neuro General: patient oriented x3 Extrem General: Yes edema (tr BLE edema) Psych Appearance: grossly normal Mental Status: mental status grossly normal Speech and movement: Normal speech and movement present Affect: normal affect Attitude: cooperative Assessment & Plan Assessment & Plan (1) Morbid obesity: Code(s): E66.01 - Morbid (severe) obesity due to excess calories Plan: This is a?47 yo female who will start our medicla weight loss program.? She will be scheduled for follow-up appointment with Wendie registered dietitian, in approximately 3-4 weeks. ? Adequate sleep of 7-8 hours per night discussed, awakening at 630 am and going to bed around 930 pm ? Purchase body composition analyzer scale (Delbert redd or Zbigniew recommended) and check weight weekly. The best time to do this is first thing in the morning after going to the bathroom. 1. Nutritional counseling: Be sure to careful read the number of scoops per shake Start with 2 Celebrate Rebuild shakes ([facility] [employer], [employer], [email or web address]), First shake, (2 scoops in 20 oz low fat unsweetened almond milk or water) at 730am-930am, Second shake, (2 scoops in 20 oz low fat unsweetened almond milk or water) at 1030am-1230pm 2 protein bars (Moleculera Labste protein bars available at [facility] [employer], [employer], [employer]) at 1230pm-230pm, and 330pm-530 pm Dinner at 6pm (9 forks of protein and 9 forks of salad/vegetables). Meal to include lean meat (beef, fish, pork, turkey, chicken), cooked vegetables or a salad with olive oil and/or fruits (berries, pears, apples, kiwi). Avoid salt, breads, potatoes, rice, pasta, desserts. Try to drink 64 oz of water daily and avoid soda and juices. ?2. Each shake would be drunk slowly, like coffee in a period of 2 hours. ?3. Cut each bar in 4 pieces and eat each piece in 30 min ?to make each bar last 2 hours. ?4. I emphasized the importance of measuring accurately the food portion and measure it carefully when serving the food on the plate ?5. The meal portions include 9 full-size forks of meat and 9 full-size forks of salad. You always eat the meat portion but you can replace up to half of the forks of salad/vegetables with rice, potatoes or pasta, or a fruit ?if you like. The less you do it the better weight loss will be. ?6. One full-size fork is what can be scooped on the fork without falling aside and not what can be bit with the fork. Use regular forks like those you find in a typical restaurant. ?7.? Please send me weight measurements as soon as possible and then once a week. Always include your diet and exercise plan. Alternatively come weekly at the office for weight checks and send me the measurements. ?8. Exercise counseling: Begin by watching a stretching for beginners video. Start slowly and begin to stretch your muscles. You should do this before and after each exercise session to prevent injury. Please use the treadmill in your home. Start treadmill with a speed of 3.0 and incline of 0, increasing incline by 1 every 3 minutes to the highest comfortable level (max 6 for now) then decrease in the same fashion. Repeat process to a goal of 300 calories. Goal of 2000 calories burned or more weekly. You may also consider use of the stationary bike. The easiest would be to chose the fat-burn or interval training program on the machine and do this until you reach the 300 calorie goal. Alternatively, you can manually adjust the resistance in a similar fashion as mentioned above, (resistance of 2-8 with a goal speed of 12 mph). Tracking calories is essential. 9. Alternatively start walking outside daily, tracking calories with a goal of 300 calories per day, daily. You can download the [employer] Store which can track your time, distance and calories while walking outside. You press start in the albin when you start and then stop when you are finished. 10. Discussed and answered all questions regarding?obtained consent to participate in the [facility]?Registry. 11. Please follow the diet plan exactly, without any change. If you do not like something about the plan or you feel hungry, you need to communicate with me so I can help you revise the plan. You should not change the plan yourself. Text me at [phone] 12. Goal is to lose at least 12 pounds in the first month 13. please text me weekly with your weight and if you have any questions or concerns Patient is morbidly obese and is not considered stable at this time.?I spent a total of 70 minutes reviewing/updating records, examining the patient and counseling the patient on weight management as detailed above. Coding Level of Care Code New Pt Level 5 (18821) Diagnoses Morbid obesity E66.01 Time Spent (min) 50
[2023-04-02 09:42] VITALS: BP 119/66; PULSE 83; TEMP 36.1; O2SAT 98; BMI 41.9
== END 2023-04-02 10:59 | disposition home or self-care (01) ==
PROVIDERS: PCP Internal Medicine; Visit Provider Physician Assistant Surgical
DX: E66.01 Morbid (severe) obesity due to excess calories (principal); Z68.41 Body mass index [BMI] 40.0-44.9, adult
CPT/HCPCS: 99205

== ENCOUNTER → 2023-04-02 09:26 | Outpatient (BNVA) | payer OTHER, SELFPAY | PROVIDERS: PCP Internal Medicine; Visit Provider Physician Assistant Surgical ==

== ENCOUNTER 2023-04-08 14:19 | Outpatient (AMB) | payer OTHER, SELFPAY ==
--- NOTE | 2023-04-08 15:06 | HO.SPINEOV ---
Intake Intake Visit Reasons: discuss surgery Intake Note: Ms. Goldberg is here today to discuss surgery. Help Desk Support Required: No Allergies meclizine Adverse Reaction (Verified 04/02/23 09:49) tachycardia metoclopramide Adverse Reaction (Verified 04/02/23 09:49) tachycardia Assessment & Plan Assessment & Plan (1) Lumbar spondylosis: Code(s): M47.816 - Spondylosis without myelopathy or radiculopathy, lumbar region Plan Dear colleague, On 04/08/2023, I saw for follow-up Ute Goldberg. She suffering from intractable low back pain radiating down both legs into her feet. A new MRI shows severe degenerative disc disease with complete collapse of the L5-S1 disc space. We discussed surgical options today in the form of an oblique lumbar interbody fusion. I discussed the procedure with a model. She states that an injection in the past give her great relief and she prefers to have another injections before she would consider surgery. Therefore, I referred her back to our pain management team. She revisits me if she considers surgery. I spent 20 minutes in this consult Eugene Henry MD, PhD Spine Fellowship Trained Neurosurgeon Director, [facility] Coding Level of Care Code Est Pt Level 3 (80599) Diagnoses Lumbar spondylosis M47.816
== END 2023-04-08 15:29 | disposition home or self-care (01) ==
PROVIDERS: PCP Internal Medicine; Visit Provider Neurological Surgery
DX: M47.816 Spondylosis without myelopathy or radiculopathy, lumbar region (principal)
CPT/HCPCS: 99213

== ENCOUNTER → 2023-04-08 14:19 | Outpatient (BNVA) | payer OTHER, SELFPAY | PROVIDERS: PCP Internal Medicine; Visit Provider Neurological Surgery | DX: M47.816 Spondylosis without myelopathy or radiculopathy, lumbar region (principal) | CPT/HCPCS: 99212 ==

== ENCOUNTER 2023-04-10 09:51 | Outpatient (AMB) | payer OTHER, SELFPAY ==
--- NOTE | 2023-04-10 09:54 | MHC.OFFVIS ---
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 Patient reports she has Neurosurgery re-evaluation with Dr. Henry on 04/08/23 and discussed surgical options in the form of an oblique lumbar interbody fusion. Patient reports she has decided not to proceed with the surgery. Patient continues to reports significant low back pain with bilateral radiculopathy with weakness, numbness and tingling in both lateral lower legs and calfs and tingling in toes. Reports recent fall last Friday due to shooting low back pain and shows abrasions on her right knee. She ambulates with antalgic gait with mild limping. Walking, weight bearing, changing positions, or standing increases her pain. Most recent lumbar spine MRI is significant for significant degenerative disc disease with complete collapse of the L5-S1 disc space, mild to moderate bilateral neural foraminal narrowing with abutment the exiting L5 nerve roots. Patient requests repeating bilateral L5-S1 TFESI injections as this injections previously provided her 2.5 months pain relief with improved functioning, mobility and sleep. Denies any recent cough, cold, infection, fever or other significant changes in medical history since last office visit except as noted above. Patient denies any bladder or bowel incontinence or saddle anesthesia. Patient recently joined [facility] to loose weight towards a healthier lifestyle, decrease risks factors for her current medical conditions, and in effort to alleviate some of her back symptoms. Most current A1C was 7.2 o 03/19/23. PRIOR: Patient presents today for follow up for worsening lower back pain and right sided radiculopathy in L5-S1 distribution. Patient reports she fell 2 weeks due to back pain and loss of balance related to right sided weakness. She reports significant muscle stiffness and spasms in her right sided paraspinals and mild to moderate on left lower and mid back area. Her recent thoracic xray was normal. Her back pain radiates to right buttock and into RLE with numbness and tingling and occasional weakness with severe back pain. Patient has pending Neurosurgical evaluation on 01/10/23 with [facility] and is hoping she can change this to an earlier date. Pain increases with walking or standing and does not necessarily go away with sitting or changing position. She reports inadequate sleep due to pain. Reports occasional urine incontinence with severe back pain. Patient rates her pain at 10/10 today. PRIOR: Patient presents today to assess response to Bilateral L5-S1 TFESI?injections on 10/10/[address] Escalante. Patient reports 80% ongoing pain relief since procedure with better mobility, sleep, ADLs and better tolerance with walking and social activities. Patient reports occasional significant right leg with prolonged walking. Reports numbness, tingling or weakness of lower extremities with prolonged walking or standing, worse on the right. She reports now significant mid back pain and muscle stiffness. Thoracic xray imaging in 2020 showed mild narrowing of disc spaces suggest underlying degenerative disc disease. She denies chest pain or GERD symptoms. Patient also has severe disc height loss with mild subchondral endplate edema. Unfortunately, her insurance does not approve ViaDisc injections. We will consider neurosurgical evaluation. Patient may benefit from Weight Management referral as well to help her optimize weight loss which will be beneficial shelter pain control as well. At this time, we will proceed with updating her thoracic spine xrays and tenantively plan for diagnostic thoracic medial branch blocks. Denies bowel incontinence or saddle anesthesia. PRIOR: Patient presents today for follow up regarding worsening lower back pain. She was initially seen in this office by Pennie BLANCAS and was ordered lumbar spine MRI which she completed on 09/14/21. Patient reports she was awaiting for our office to schedule follow up as well has been dealing with stomach pains throughout most of 2021 and regularly sees GI services. She reports her back pain is axial but also radiates into her bilateral lower extremities posteriorly with numbness and tingling in her feet and toes. Her lumbar spine MRI is noted for a severe disc height loss with mild subchondral endplate edema at L5-S1 level. Bulging disc flattens the ventral thecal sac with encroachment on the subarticular zones and abutment of both exiting L5 nerve roots. Remainder of the lumbar disc levels are unremarkable. Tylenol, NSAIDs, topical applications, ice and heat therapy, hot showers and rest provide her only minimal and short term relief. Her most current A1C is 7.6. She is working towards healthier BMI and goal of A1C<7.0. Patient is interested to undergo therapeutic injections for her radicular pain with sedation. Patient reports overactive bladder and occasional urinary incontinence. She follows urology for this. Denies any fever, malaise, weight loss, abdominal or groin pain, bowel incontinence or saddle anesthesia. PRIOR [facility] 08/21/21: Ute is a pleasant 45 year old luxembourger speaking female who presents to the office with complaints of low back and abdominal pain. She reports abdominal pain for the past four years and has had chronic back pain with worsening over the past two years. She is currently under the care of GI for her abdominal pain. She has attempted multiple medications with no improvement, negative gastric emptying study and - H.pylori as well as unremarkable EGD/colonscopy. HIDA consistent with chronic cholecystitis. She has an additional testing scheduled. At this time, since she is undergoing additional testing we focused on her low back pain which is what she was referred for. She reports her low back pain travels across the low back and radiates throughout the right lateral thigh with associated weakness, numbness and tingling. She does report occasional incontinence with urine. The pain is worse in the evenings and less severe in the afternoon. She reports pain onset was gradual, constant and rates the pain a 5-10/10. She states the pain is interfering with sleep and her ability to perform activities of daily living. The patient reports the pain in terms of tissue damage as jumping, stabbing, sharp, tugging, as well as tiring, fearful, radiating and tight. The pain is exacerbated with any acitivty and finds herself constantly changing positions. She reports some alleviation with sitting and laying down. She has also tried topicals, NSAIDS, heat/ice and tylenol with minimal effect. She has attempted physical therapy in the past with minimal alleviation in symptoms. Denies any chiropractic manipulation, massage or acupuncture. Denies any previous back injections or surgery. Previous records report degenerative changes, report dictated below. [facility] Medical History Overactive bladder Diarrhea Morbid obesity with BMI of 40.0-44.9, adult Biliary dyskinesia Elevated TSH Obesity (BMI 30-39.9) Depression Anxiety Insomnia Obstructive sleep apnea Vitamin D deficiency 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 myelopathy or radiculopathy Elevated LFTs Allergic rhinitis Asthma Migraine Pure hypercholesterolemia Benign essential hypertension Diabetes mellitus IBS (irritable bowel syndrome) Gastroparesis Surgical History History of cardiac cath Hx of tubal ligation Hx of colonoscopy (~03/2018) Hx of endoscopy History of surgery of head Hx of hysterectomy (~08/2011) Family History Father Diabetes Hypertension Heart problem Mother Arthritis Diabetes Hypertension Maternal Grandmother Breast cancer, Onset Age: 72 Family/Other Diabetes Hypertension Heart problem Social History Household Members: Spouse Housing: House Alcohol intake: current Alcohol intake frequency: holidays/special occasions only Patient Tobacco Use Status: Never used Tobacco e-Cigarette/Vaping Use: Never Used Second Hand Smoke Exposure: No Advance Directives Date on File: 03/20/16 service: No Current occupational status: disabled Cognitive needs: No Hearing needs: No Vision needs: Yes Female Reproductive History Menstrual Age of Menarche: 13 Review of Systems Const All systems reviewed & are unremarkable except as noted in HPI and below Physical Exam Vital Signs: Last Vital Signs Pulse 70 04/10/23 09:59 BP 107/64 04/10/23 09:59 Pulse Ox 99 04/10/23 09:59 Oxygen Delivery Method Room Air 04/10/23 09:59 BMI result Body Mass Index 41.7 General: Appears afebrile. Alert and oriented. Mood and affect appropriate. Follows and participates in conversation appropriately. Respiratory effort is unlabored. No cough. Wearing face mask. Able to transition from sit to stand unassisted. Ambulates with antalgic gait with limping. Back/Spine/Pelvis Other: Can flex forward 60-65 degrees and extend to 5-10 degrees. Reports more pain with forward flexion and bending. Demonstrates 5/5 strength of quadriceps on the right and 4/5 on the left as well as flexion/dorsiflexion of bilateral feet against resistance. Straight leg rise with dorsiflexion positive bilaterally, L>R. DTR intact, patellar reflex diminished bilaterally. Alessandro test, Stinchfield test, Pelvic compression test + bilaterally. Facet loading test + bilaterally. No groin pain with I/E hip rotations bilaterally. Valsalva maneuver is negative. Cervical Spine: cervical ROM normal and No Cervical spine tenderness Thoracic/Lumbar Spine: thoracic and lumbar spine normal to inspection, No Thoracic/lumbar spine scar(s), Lasegue's sign positive (localized-left, diffuse-right) bilateral, pain with thoraco-lumbar ROM, paraspinal muscle tenderness, thoraco-lumbar ROM limited, No thoracic spinal tenderness and lumbar spinal tenderness at L4 and at L5 Pelvis: buttock tenderness bilaterally Sacroiliac joints: bilaterally tender to palpation Extrem General: Yes capillary refill normal, Yes no clubbing, cyanosis or edema and Yes no calf tenderness Right lower extremity: knee (2 medium size abrasions r/t recent fall. Full ROM. +Crepitus.) Details: tenderness (anterior aspect), normal ROM and abrasion knee anterolateral ; no swelling and no unusual warmth Results Reviewed Results Reviewed: MR LUMBAR SPINE WITHOUT CONTRAST 02/26/23 CLINICAL INFORMATION: Lower back pain and bilateral leg pain COMPARISON: MR lumbar spine 09/14/2021 FINDINGS: Normal anatomic alignment. No suspicious marrow signal or focal osseous lesion. Mixed type I and type II endplate marrow signal changes at L5-S1. The vertebral body heights are maintained. Moderate disc desiccation and height loss at L5-S1. The conus medullaris terminates at the level of L2. The distal spinal cord is normal in appearance. The cauda equina nerve roots appear normal. Redemonstration of thin fatty infiltration of the filum terminale. No significant abnormalities of the paraspinal musculature. Limited evaluation of the intra-abdominal structures without significant abnormalities. Partially visualized large left renal cyst. The abdominal aorta is of normal contour and caliber. SPINAL LEVELS: T12-L1: No significant spinal canal or neural foraminal narrowing L1-L2: No significant spinal canal or neuroforaminal narrowing. L2-L3: No significant spinal canal or neuroforaminal narrowing. L3-L4: No significant spinal canal or neuroforaminal narrowing. L4-L5: No significant spinal canal or neuroforaminal narrowing. Mild facet arthropathy. L5-S1: Broad-based disc bulge, mild facet arthropathy. Stable subarticular zone narrowing with possible contact of the traversing S1 nerve roots and mild to moderate bilateral neural foraminal narrowing with abutment of the exiting L5 nerve roots. IMPRESSION: Stable degenerative disc and facet disease at L5-S1 with subarticular zone narrowing with possible contact of the traversing S1 nerve roots and mild to moderate bilateral neural foraminal narrowing with abutment of the exiting L5 nerve roots. Assessment & Plan Assessment & Plan (1) Lumbar degenerative disc disease: Code(s): M51.36 - Other intervertebral disc degeneration, lumbar region (2) Lumbar radiculopathy: Code(s): M54.16 - Radiculopathy, lumbar region (3) History of recent fall: Code(s): Z91.81 - History of falling (4) Sacroiliac joint pain: Code(s): M53.3 - Sacrococcygeal disorders, not elsewhere classified (5) Lumbar spondylosis: Code(s): M47.816 - Spondylosis without myelopathy or radiculopathy, lumbar region (6) Morbid obesity with BMI of 40.0-44.9, adult: Comment: BMI=42.1 SHE HAS BEEN MORBIDLY OBESE FOR MANY YEARS. SHE TOLD ME THAT SHE IS TRYING TO CUT DOWN THE INTAKE OF FOOD AND TRYING TO WALK DAILY. BECAUSE OF DYSPNEA ON MINIMAL EXERTION SHE IS NOT ABLE TO DO MUCH EXERCISE OR WALK AROUND. Code(s): E66.01 - Morbid (severe) obesity due to excess calories; Z68.41 - Body mass index [BMI] 40.0-44.9, adult Plan Schedule repeat Bilateral L5-S1 TFESI with sedation and fluoroscopy for ongoing bilateral radicular symptoms. Counseled patient on vigilance in checking and treatment of hyperglycemia following steroid injection. Script provided for cane due to recent fall and lumbar support. Patient is aware to call if pain worsens or if she develops any red flag symptoms to seek emergency care. Patient denies any cauda equina syndrome symptoms at this time. All questions and concerns have been answered and patient agreed with the plan. Follow up after injection and sooner if needed. Anticoagulation: Patient not on anticoagulant Justification for interventional therapy: ? Patient with average pain > 6/10 ? Patient has exhausted conservative therapy, NSAIDs, physical therapy The risks, consequences, alternatives, and benefits of various treatment options were discussed with the patient in great detail, including conservative management, injections and procedures. I informed her of the hyperglycemic effects of steroids. Medications: New cane As directed 1 ea 0RF lumbar support M51.36 - Other intervertebral disc degeneration, lumbar region, M54.16 - Radiculopathy, lumbar region, Z91.81 - History of falling Coding Level of Care Code Est Pt Level 4 (62442) Diagnoses Lumbar degenerative disc disease M51.36 Lumbar radiculopathy M54.16 History of recent fall Z91.81 Sacroiliac joint pain M53.3 Lumbar spondylosis M47.816 Morbid obesity with BMI of 40.0-44.9, adult E66.01; Z68.41
[2023-04-10 09:59] VITALS: BP 107/64; PULSE 70; O2SAT 99; BMI 41.7
== END 2023-04-10 10:09 | disposition home or self-care (01) ==
PROVIDERS: PCP Internal Medicine; Visit Provider Nurse Practitioner Family
DX: M51.36 Other intervertebral disc degeneration, lumbar region (principal); M54.16 Radiculopathy, lumbar region; Z91.81 History of falling; M53.3 Sacrococcygeal disorders, not elsewhere classified; M47.816 Spondylosis without myelopathy or radiculopathy, lumbar region; E66.01 Morbid (severe) obesity due to excess calories; Z68.41 Body mass index [BMI] 40.0-44.9, adult
CPT/HCPCS: 99214

== ENCOUNTER → 2023-04-10 09:51 | Outpatient (BNVA) | payer OTHER, SELFPAY | PROVIDERS: PCP Internal Medicine; Visit Provider Nurse Practitioner Family | DX: M51.36 Other intervertebral disc degeneration, lumbar region (principal); M54.16 Radiculopathy, lumbar region; M53.3 Sacrococcygeal disorders, not elsewhere classified; M47.816 Spondylosis without myelopathy or radiculopathy, lumbar region; E66.01 Morbid (severe) obesity due to excess calories; Z68.41 Body mass index [BMI] 40.0-44.9, adult | CPT/HCPCS: 99212 ==

== ENCOUNTER → 2023-04-30 10:10 | Outpatient (BNVA) | payer OTHER, SELFPAY | PROVIDERS: PCP Internal Medicine; Visit Provider Dietitian, Registered | DX: E66.9 Obesity, unspecified (principal); E11.9 Type 2 diabetes mellitus without complications; Z71.3 Dietary counseling and surveillance | CPT/HCPCS: 97802 ==

== ENCOUNTER 2023-05-01 10:23 | Day surgery (SDC) | payer OTHER, SELFPAY ==
[2023-04-28 16:32] VITALS: BMI 41.7
[2023-04-29 09:43] VITALS: BMI 41.4
--- NOTE | 2023-04-30 09:46 | HO.ANESPROP2 ---
HPI - Anesthesia Eval Consult details Narrative: 47yo F for Bilateral L5-S1 Transforaminal Epidural Steriod Injection s/p hysterectomy Anesthesia Pre-Procedure Meds Is the patient on any of the following meds?: Any other SGL-1 drugs or drugs that delay gastric emptying PMFSH Active Problems Active Problems: All Active Problems (Updated 04/10/23 @ 10:06 by YONNY Perez) History of recent fall (Acute) Morbid obesity (Acute) Elevated vitamin B12 level (Acute) Dry mouth and eyes (Acute) Edema of both lower legs (Acute) Muscle spasm of back (Acute) Lumbar degenerative disc disease (Acute) Thoracic back pain (Acute) Fungal infection (Acute) Encounter for gynecological examination with Papanicolaou smear of cervix (Acute) Lumbar radiculopathy (Acute) Lumbar spondylosis (Acute) Dyspnea (Acute) Sebaceous cyst of labia (Acute) Abnormal nuclear stress test (Acute) Abnormal stress ECG with treadmill (Acute) Shortness of breath (Acute) Precordial chest pain (Acute) Recurrent chest pain (Acute) Renal cyst (Acute) Pain of left breast (Acute) Stool incontinence (Acute) Ovarian cyst (Acute) C. difficile diarrhea (Acute) Weight loss (Acute) Blood in stool (Acute) Disc disease, degenerative, lumbar or lumbosacral (Acute) Sacroiliac joint pain (Acute) Back pain (Acute) Atypical facial pain (Acute) Chronic cholecystitis without calculus (Acute) Lump of scalp (Acute) Nausea and vomiting (Acute) RUQ abdominal pain (Acute) Abdominal bloating (Acute) GERD (gastroesophageal reflux disease) (Acute) Chronic idiopathic constipation (Acute) Diarrhea (Acute) History of cardiac cath (Acute) Overactive bladder (Acute) Morbid obesity with BMI of 40.0-44.9, adult (Acute) Biliary dyskinesia (Acute) Elevated TSH (Acute) Obesity (BMI 30-39.9) (Acute) Depression (Acute) Anxiety (Acute) Insomnia (Acute) Obstructive sleep apnea (Acute) Vitamin D deficiency (Acute) 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 myelopathy or radiculopathy (Acute) Elevated LFTs (Acute) Allergic rhinitis (Acute) Asthma (Acute) Migraine (Acute) Pure hypercholesterolemia (Acute) Benign essential hypertension (Acute) Diabetes mellitus (Acute) Past Medical History Medical History (Updated 04/10/23 @ 10:06 by YONNY Perez) Overactive bladder Diarrhea Morbid obesity with BMI of 40.0-44.9, adult Biliary dyskinesia Elevated TSH Obesity (BMI 30-39.9) Depression Anxiety Insomnia Obstructive sleep apnea Vitamin D deficiency 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 myelopathy or radiculopathy Elevated LFTs Allergic rhinitis Asthma Migraine Pure hypercholesterolemia Benign essential hypertension Diabetes mellitus IBS (irritable bowel syndrome) Gastroparesis Family History Family History Father Diabetes Hypertension Heart problem Mother Arthritis Diabetes Hypertension Maternal Grandmother Breast cancer, Onset Age: 72 Family/Other Diabetes Hypertension Heart problem Family history of problems with anesthesia: No Surgical History Surgical History (Updated 04/29/23 @ 09:48 by Johanna Sanchez RN) Status post epidural steroid injection History of cardiac cath Hx of tubal ligation Hx of colonoscopy (~03/2018) Hx of endoscopy History of surgery of head Hx of hysterectomy (~08/2011) History of Problems with Anesthesia: No Social History Social History Household Members: Spouse Housing: House Are you a primary palliative care specialist to a significant other at home: No Do you presently have visiting nurse or other home services: No Alcohol intake: current Alcohol intake frequency: does not drink Patient Tobacco Use Status: Never used Tobacco e-Cigarette/Vaping Use: Never Used Second Hand Smoke Exposure: No Advance Directives Date on File: 03/20/16 service: No Current occupational status: disabled Cognitive needs: No Hearing needs: No Vision needs: Yes Meds Allergies Allergy/AdvReac Type Severity Reaction Status Date / Time meclizine AdvReac tachycardia Verified 04/29/23 09:30 metoclopramide AdvReac tachycardia Verified 04/29/23 09:30 Home Medications Medication Instructions Recorded Confirmed Last Taken Type melatonin 3 mg tablet 6 mg PO BEDTIME 06/28/20 04/29/23 Unknown History propranolol 80 mg tablet 80 mg PO BID 06/28/20 04/29/23 10/10/22 History sertraline 100 mg tablet 100 mg PO DAILY 06/28/20 04/29/23 10/10/22 History ziprasidone HCl 80 mg capsule 80 mg PO BID 06/28/20 04/29/23 10/10/22 History (Geodon) topiramate 100 mg tablet 100 mg PO BID 07/20/21 04/29/23 10/10/22 History amitriptyline 75 mg tablet 75 mg PO DAILY 08/21/21 04/29/23 Unknown History onabotulinumtoxinA 100 unit unit IM ONCE 05/13/22 03/24/23 Unknown History solution for injection (Botox) beclomethasone dipropionate 80 1 inh inhalation BID 10/08/22 04/29/23 Unknown History mcg/actuation HFA breath activated aerosol (Qvar RediHaler) erenumab-aooe 140 mg/mL 140 mg subcut [id number] 02/24/23 04/29/23 Unknown History subcutaneous auto-injector (Aimovig Autoinjector) ubrogepant 100 mg tablet (Ubrelvy) 100 mg PO DAILY PRN Migraine 02/24/23 04/29/23 Unknown History Headache atorvastatin 20 mg tablet 20 mg PO BEDTIME 04/29/23 04/29/23 Unknown History dicyclomine 20 mg tablet 20 mg PO BID 04/29/23 04/29/23 Unknown History montelukast 10 mg tablet 10 mg PO BEDTIME 04/29/23 04/29/23 Unknown History ondansetron 4 mg disintegrating 4 mg PO TID PRN Nausea 04/29/23 04/29/23 Unknown History tablet simethicone 180 mg capsule 180 mg PO TID PRN Abdominal 04/29/23 04/29/23 Unknown History Distention Exam Exam Date and Time: April 30, 2023 0946 Height,Weight and Vital Signs: Height 5 ft 4 in Weight 109.316 kg Assessment and Plan Final Anesthetic Review Family History of Problems with Anesthesia: No History of Problems with Anesthesia: No
--- NOTE | ~2023-05-01 | FL_ITS ---
EXAMINATION: XR FLUOROSCOPY WITH IMAGES CLINICAL INFORMATION: Bilateral L5-S1 injection. Transforaminal epidural steroid injection. COMPARISON: None available. TECHNIQUE: Fluoroscopy Supervised By: Dr. Nathan Escalante. Fluoroscopy Time: 0.4 minutes. Cumulative Dose: 27.7 mGy. DAP: 0.481 Gycm2. Images: 4. FINDINGS: Images demonstrate needle placement and contrast injection adjacent bilateral lateral L5 vertebrae FL/FL guidance in OR IMPRESSION: Fluoroscopy guidance for pain management procedure
--- NOTE | 2023-05-01 10:46 | MHC.SHP ---
Pre-Procedural Eval Section A Date of Service: 05/01/23 The patient is an INPATIENT: No Changes since office visit: Yes Patient answered all questions The History & Physical has been completed within 30 days and I have reviewed it.: No Section B Chief Complaint: Radiculopathy, lumbar region Details of Present Illness: as above Relevant Family History (Specify if Yes): No Relevant Social History: None Present Medications: see Short Stay Collaborative assessment Medical History: No relevant PMH History of Previous Operations: No relevant previous surgery Allergies: Allergies Allergy/AdvReac Type Severity Reaction Status Date / Time meclizine AdvReac tachycardia Verified 04/29/23 09:30 metoclopramide AdvReac tachycardia Verified 04/29/23 09:30 Review of Systems Sugical H&P ROS: Negative: Cardiovascular, Respiratory, Neurological, Psychiatric, Hem-Onc, Allergic/Immunologic, Gastrointestinal, Genitourinary, Integumentary, Endocrine and Eyes/Ears/Nose/Throat and Yes, Specify: Constitution (Morbid obesity) and Musculoskeletal (Spondylosis lumbar with radiculopathy) Exam Surgical H&P Exam: Normal: HEENT, Normal: Heart, Normal: Lungs, Normal: Extremities, Normal: Skin and Normal: Neurological and Significant Findings: Abdomen (Enlarged due to i/a & s/q fat) Plan Diagnosis/Plan: Unchanged I have reviewed the history and physical and performed a pertinent physical examination on my patient. No changes have occurred unless specified. Time Spent With Patient Time: Total time managing care of this patient today ____ minutes.
[2023-05-01 10:56] VITALS: BP 123/80; PULSE 66; RESP 18; TEMP 36.6; O2SAT 98
[2023-05-01 12:00] VITALS: BP 118/73; PULSE 62; RESP 18; TEMP 36.2; O2SAT 96
--- NOTE | 2023-05-01 12:10 | P.OP_ITS ---
Operative Note Operative Note Date of Service: 05/01/23 Narrative: Bilateral L5 S1 Transforaminal epidural steroid injection Informed consent was thoroughly explained to the patient before the procedure.? The patient came to the operating room. She was positioned prone on operating table with a pillow under his abdomen.? ASA monitors were applied and patient was Minimally sedated. Time-out was performed delineating correct site and side of the procedure, nature of the injection, name and date of of the patient. The lower back of the patient was prepped with ChloraPrep and draped with sterile utility towels.? C-arm was brought over the operating field and sq picture of L5 vertebra was demonstrated on the screen.? The right side was chosen as the side of the injection.? Tilting machine ipsilateral to the right at the level of L5 the most prominent picture of the right? pedicle was obtained on the screen.? 3 mm below the level of the lowest point of the pedicle projection to the skin small amount of lidocaine 1% 3-4 cc was injected to an esthetize the skin.? After that 5 in 22 gauge Quincke point needle was inserted through the skin wheal and was advanced to the L5-S1 foramina? on anterior posterior, lateral? and oblique views intermittently.? When tip of the needle entered foramina projection on AP view injection of the contrast was performed demonstrating epidural and perineural spread of the contrast.? After that injection of the treatment medicine 4 cc of preservative-free lidocaine 1% mixed with Kenalog 40 mg was injected into the foramina.? Injection of the contrast and injection of the treatment medicine was observed live on the screen.? No intrathecal and no intravascular spread of the contrast was noted. After that the procedure repeated in the same fashion at othe opposite side the same level Upon completion of the procedures the needle was withdrawn sterile bandaids were applied, the patient tolerated the procedure fairly well.
--- NOTE | 2023-05-01 12:10 | PM.OP ---
Brief Operative Note Date of Service: 05/01/23 Pre-op diagnosis: lumbar radiculopathy Post-op diagnosis: same Procedure: bilateral TFESI L5- S1 Surgeon: Nathan Escalante MD Anesthesia: local Was an Help Desk Supervisor used for this Procedure?: No Estimated blood loss (mL): 0 Condition: stable Disposition: PACU
== END 2023-05-01 12:26 | disposition home or self-care (01) ==
PROVIDERS: PCP Internal Medicine; Visit Provider Anesthesiology
PROC: (CPT 64483; principal; 2023-05-01 11:30)
DX: M54.16 Radiculopathy, lumbar region (principal); M51.36 Other intervertebral disc degeneration, lumbar region; M47.816 Spondylosis without myelopathy or radiculopathy, lumbar region; M53.3 Sacrococcygeal disorders, not elsewhere classified; Z91.81 History of falling; I10 Essential (primary) hypertension; E66.01 Morbid (severe) obesity due to excess calories; Z68.41 Body mass index [BMI] 40.0-44.9, adult; F32.A Depression, unspecified; F41.9 Anxiety disorder, unspecified; G47.33 Obstructive sleep apnea (adult) (pediatric); E55.9 Vitamin D deficiency, unspecified; J45.909 Unspecified asthma, uncomplicated; E11.9 Type 2 diabetes mellitus without complications; E78.00 Pure hypercholesterolemia, unspecified; Z88.8 Allergy status to other drugs, medicaments and biological substances; Z98.890 Other specified postprocedural states
CPT/HCPCS: 64483; 64484 ×2; J3301; Q9967

== ENCOUNTER → 2023-05-01 10:23 | Outpatient (BNV) | payer OTHER, SELFPAY | PROVIDERS: PCP Internal Medicine; Visit Provider Anesthesiology | DX: M51.17 Intervertebral disc disorders with radiculopathy, lumbosacral region (principal) | CPT/HCPCS: 64483 ==

== ENCOUNTER 2023-06-02 09:53 | Outpatient (AMB) | payer OTHER, SELFPAY ==
--- NOTE | 2023-06-02 10:00 | MHC.OFFVIS ---
Intake Vital Signs 06/02/23 10:04 Height 5 ft 4 in Weight 237 lb BMI 40.7 BP 126/78 Blood Pressure Location Lt brachial Position Sitting Pulse 75 Pulse Source Pulse Oximeter Pulse Oximetry (%) 98 Oxygen Delivery Method Room Air Intake Visit Reasons: S/p B/l L5-S1 TFESI 05/01/23/confirmed Intake Note: Pain today 02/06 Children'S Minister Required: No Accompanied by: Unknown Allergies meclizine Adverse Reaction (Verified 06/02/23 10:09) tachycardia metoclopramide Adverse Reaction (Verified 06/02/23 10:09) tachycardia HPI HPI Comments History of Present Illness Details Patient presents today to assess response to repeat bilateral L5-S1 TFESI injection on 05/01/[address] Escalante. Patient reports 70% pain relief since procedure with better mobility, sleep and increased walking capacity up until 3 days ago when she developed significant aching and throbbing pain in her left lower back radiating upward her left side and into her left posterior leg. Denies any recent injury or falls. Patient reports intermittent radicular pain on right side too but not as often since injection. Patient is hesitant toward back surgery and would like to proceed with course of physical therapy. She continues to manage her symptoms with mild to moderate benefit with tramadol and gabapentin. Denies any recent cough, cold, infection, fever, bladder or bowel dysfunction, saddle anesthesia, weakness, foot drop or other significant changes in medical history since last office visit. PRIOR: Patient presents today for follow up to discuss repeating bilateral L5-S1 TFESI injection. Patient reports she has Neurosurgery re-evaluation with Dr. Henry on 04/08/23 and discussed surgical options in the form of an oblique lumbar interbody fusion. Patient reports she has decided not to proceed with the surgery. Patient continues to reports significant low back pain with bilateral radiculopathy with weakness, numbness and tingling in both lateral lower legs and calfs and tingling in toes. Reports recent fall last Friday due to shooting low back pain and shows abrasions on her right knee. She ambulates with antalgic gait with mild limping. Walking, weight bearing, changing positions, or standing increases her pain. Most recent lumbar spine MRI is significant for significant degenerative disc disease with complete collapse of the L5-S1 disc space, mild to moderate bilateral neural foraminal narrowing with abutment the exiting L5 nerve roots. Patient requests repeating bilateral L5-S1 TFESI injections as this injections previously provided her 2.5 months pain relief with improved functioning, mobility and sleep. Denies any recent cough, cold, infection, fever or other significant changes in medical history since last office visit except as noted above. Patient denies any bladder or bowel incontinence or saddle anesthesia. Patient recently joined [facility] to loose weight towards a healthier lifestyle, decrease risks factors for her current medical conditions, and in effort to alleviate some of her back symptoms. Most current A1C was 7.2 o 03/19/23. PRIOR: Patient presents today for follow up for worsening lower back pain and right sided radiculopathy in L5-S1 distribution. Patient reports she fell 2 weeks due to back pain and loss of balance related to right sided weakness. She reports significant muscle stiffness and spasms in her right sided paraspinals and mild to moderate on left lower and mid back area. Her recent thoracic xray was normal. Her back pain radiates to right buttock and into RLE with numbness and tingling and occasional weakness with severe back pain. Patient has pending Neurosurgical evaluation on 01/10/23 with [facility] and is hoping she can change this to an earlier date. Pain increases with walking or standing and does not necessarily go away with sitting or changing position. She reports inadequate sleep due to pain. Reports occasional urine incontinence with severe back pain. Patient rates her pain at 10/10 today. PRIOR: Patient presents today to assess response to Bilateral L5-S1 TFESI?injections on 10/10/[address] Escalante. Patient reports 80% ongoing pain relief since procedure with better mobility, sleep, ADLs and better tolerance with walking and social activities. Patient reports occasional significant right leg with prolonged walking. Reports numbness, tingling or weakness of lower extremities with prolonged walking or standing, worse on the right. She reports now significant mid back pain and muscle stiffness. Thoracic xray imaging in 2020 showed mild narrowing of disc spaces suggest underlying degenerative disc disease. She denies chest pain or GERD symptoms. Patient also has severe disc height loss with mild subchondral endplate edema. Unfortunately, her insurance does not approve ViaDisc injections. We will consider neurosurgical evaluation. Patient may benefit from Weight Management referral as well to help her optimize weight loss which will be beneficial correction pain control as well. At this time, we will proceed with updating her thoracic spine xrays and tenantively plan for diagnostic thoracic medial branch blocks. Denies bowel incontinence or saddle anesthesia. PRIOR: Patient presents today for follow up regarding worsening lower back pain. She was initially seen in this office by Pennie BLANCAS and was ordered lumbar spine MRI which she completed on 09/14/21. Patient reports she was awaiting for our office to schedule follow up as well has been dealing with stomach pains throughout most of 2021 and regularly sees GI services. She reports her back pain is axial but also radiates into her bilateral lower extremities posteriorly with numbness and tingling in her feet and toes. Her lumbar spine MRI is noted for a severe disc height loss with mild subchondral endplate edema at L5-S1 level. Bulging disc flattens the ventral thecal sac with encroachment on the subarticular zones and abutment of both exiting L5 nerve roots. Remainder of the lumbar disc levels are unremarkable. Tylenol, NSAIDs, topical applications, ice and heat therapy, hot showers and rest provide her only minimal and short term relief. Her most current A1C is 7.6. She is working towards healthier BMI and goal of A1C<7.0. Patient is interested to undergo therapeutic injections for her radicular pain with sedation. Patient reports overactive bladder and occasional urinary incontinence. She follows urology for this. Denies any fever, malaise, weight loss, abdominal or groin pain, bowel incontinence or saddle anesthesia. PRIOR Pennie BLANCAS 08/21/21: Ute is a pleasant 45 year old vietnamese speaking female who presents to the office with complaints of low back and abdominal pain. She reports abdominal pain for the past four years and has had chronic back pain with worsening over the past two years. She is currently under the care of GI for her abdominal pain. She has attempted multiple medications with no improvement, negative gastric emptying study and - H.pylori as well as unremarkable EGD/colonscopy. HIDA consistent with chronic cholecystitis. She has an additional testing scheduled. At this time, since she is undergoing additional testing we focused on her low back pain which is what she was referred for. She reports her low back pain travels across the low back and radiates throughout the right lateral thigh with associated weakness, numbness and tingling. She does report occasional incontinence with urine. The pain is worse in the evenings and less severe in the afternoon. She reports pain onset was gradual, constant and rates the pain a 5-10/10. She states the pain is interfering with sleep and her ability to perform activities of daily living. The patient reports the pain in terms of tissue damage as jumping, stabbing, sharp, tugging, as well as tiring, fearful, radiating and tight. The pain is exacerbated with any acitivty and finds herself constantly changing positions. She reports some alleviation with sitting and laying down. She has also tried topicals, NSAIDS, heat/ice and tylenol with minimal effect. She has attempted physical therapy in the past with minimal alleviation in symptoms. Denies any chiropractic manipulation, massage or acupuncture. Denies any previous back injections or surgery. Previous records report degenerative changes, report dictated below. [facility] Medical History Overactive bladder Diarrhea Morbid obesity with BMI of 40.0-44.9, adult Biliary dyskinesia Elevated TSH Obesity (BMI 30-39.9) Depression Anxiety Insomnia Obstructive sleep apnea Vitamin D deficiency 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 myelopathy or radiculopathy Elevated LFTs Allergic rhinitis Asthma Migraine Pure hypercholesterolemia Benign essential hypertension Diabetes mellitus IBS (irritable bowel syndrome) Gastroparesis Surgical History Status post epidural steroid injection History of cardiac cath Hx of tubal ligation Hx of colonoscopy (~03/2018) Hx of endoscopy History of surgery of head Hx of hysterectomy (~08/2011) Family History Father Diabetes Hypertension Heart problem Mother Arthritis Diabetes Hypertension Maternal Grandmother Breast cancer, Onset Age: 72 Family/Other Diabetes Hypertension Heart problem Social History Household Members: Spouse Housing: House Are you a primary primary care sales representative to a significant other at home: No Do you presently have visiting nurse or other home services: No Alcohol intake: current Alcohol intake frequency: does not drink Comment: NOT INDICATED Patient Tobacco Use Status: Never used Tobacco e-Cigarette/Vaping Use: Never Used Second Hand Smoke Exposure: No Advance Directives Date on File: 03/20/16 service: No Current occupational status: disabled Cognitive needs: No Hearing needs: No Vision needs: Yes Female Reproductive History Menstrual Age of Menarche: 13 Review of Systems Const All systems reviewed & are unremarkable except as noted in HPI and below Physical Exam Vital Signs: Last Vital Signs Pulse 75 06/02/23 10:04 BP 126/78 06/02/23 10:04 Pulse Ox 98 06/02/23 10:04 Oxygen Delivery Method Room Air 06/02/23 10:04 BMI result Body Mass Index 40.7 General: Appears afebrile. Alert and oriented. Mood and affect appropriate. Follows and participates in conversation appropriately. Respiratory effort is unlabored. No cough. Wearing face mask. Able to transition from sit to stand unassisted. Ambulates with antalgic gait with mild limping. Back/Spine/Pelvis Other: Limited lumbar ROM due to pain. Reports more pain with forward flexion and bending. Demonstrates 5/5 strength of quadriceps on the right and 4/5 on the left as well as flexion/dorsiflexion of bilateral feet against resistance. Straight leg rise with dorsiflexion positive bilaterally, L>R. DTR intact, patellar reflex diminished bilaterally. Alessandro test positive bilaterally. Facet loading test + bilaterally. No groin pain with I/E hip rotations bilaterally. Valsalva maneuver is negative. Cervical Spine: cervical ROM normal and No Cervical spine tenderness Thoracic/Lumbar Spine: thoracic and lumbar spine normal to inspection, No Thoracic/lumbar spine scar(s), Lasegue's sign positive (localized-left, diffuse-right) bilateral, pain with thoraco-lumbar ROM, paraspinal muscle tenderness, thoraco-lumbar ROM limited, No thoracic spinal tenderness and lumbar spinal tenderness at L4 and at L5 Pelvis: buttock tenderness bilaterally Sacroiliac joints: bilaterally tender to palpation Extrem General: Yes capillary refill normal, Yes no clubbing, cyanosis or edema and Yes no calf tenderness Right lower extremity: knee (2 medium size abrasions r/t recent fall. Full ROM. +Crepitus.) Details: tenderness (anterior aspect), normal ROM and abrasion; no swelling and no unusual warmth Results Reviewed Results Reviewed: MR LUMBAR SPINE WITHOUT CONTRAST 02/26/23 CLINICAL INFORMATION: Lower back pain and bilateral leg pain COMPARISON: MR lumbar spine 09/14/2021 FINDINGS: Normal anatomic alignment. No suspicious marrow signal or focal osseous lesion. Mixed type I and type II endplate marrow signal changes at L5-S1. The vertebral body heights are maintained. Moderate disc desiccation and height loss at L5-S1. The conus medullaris terminates at the level of L2. The distal spinal cord is normal in appearance. The cauda equina nerve roots appear normal. Redemonstration of thin fatty infiltration of the filum terminale. No significant abnormalities of the paraspinal musculature. Limited evaluation of the intra-abdominal structures without significant abnormalities. Partially visualized large left renal cyst. The abdominal aorta is of normal contour and caliber. SPINAL LEVELS: T12-L1: No significant spinal canal or neural foraminal narrowing L1-L2: No significant spinal canal or neuroforaminal narrowing. L2-L3: No significant spinal canal or neuroforaminal narrowing. L3-L4: No significant spinal canal or neuroforaminal narrowing. L4-L5: No significant spinal canal or neuroforaminal narrowing. Mild facet arthropathy. L5-S1: Broad-based disc bulge, mild facet arthropathy. Stable subarticular zone narrowing with possible contact of the traversing S1 nerve roots and mild to moderate bilateral neural foraminal narrowing with abutment of the exiting L5 nerve roots. IMPRESSION: Stable degenerative disc and facet disease at L5-S1 with subarticular zone narrowing with possible contact of the traversing S1 nerve roots and mild to moderate bilateral neural foraminal narrowing with abutment of the exiting L5 nerve roots. Assessment & Plan Assessment & Plan (1) Muscle spasm of back: Code(s): M62.830 - Muscle spasm of back (2) Lumbar radiculopathy: Code(s): M54.16 - Radiculopathy, lumbar region (3) Lumbar spondylosis: Code(s): M47.816 - Spondylosis without myelopathy or radiculopathy, lumbar region (4) Morbid obesity: Code(s): E66.01 - Morbid (severe) obesity due to excess calories (5) Sacroiliac joint pain: Code(s): M53.3 - Sacrococcygeal disorders, not elsewhere classified (6) Disc disease, degenerative, lumbar or lumbosacral: Code(s): M51.37 - Other intervertebral disc degeneration, lumbosacral region Plan Patient is stastus repeat bilateral L5-S1 TFESI on 05/01/23 with less than 4 weeks pain relief. She would like to avoid back surgery at this time. We again reviewed red flags for worsening of back symptoms for which she is advised to seek medical evalutation at ER, follow up with our office or Dr. Henry at [facility]. Script provided for physical therapy at [place] location. Refill sent for gabapentin. Will consider diagnostic sacroiliac joint injections if no significant improvement in her low back pain. Discussed watermaster effects on bone quality with repeated epidural steroid injections for her radicular back pain, including osteoporosis and increased risk for compression spine fractures. All questions and concerns have been answered and patient agreed with the plan. Follow up after PT and sooner if needed. Orders: Orders PT Evaluation and Treatment Today M47.816 - Spondylosis without myelopathy or radiculopathy, lumbar region, M51.36 - Other intervertebral disc degeneration, lumbar region, M53.3 - Sacrococcygeal disorders, not elsewhere classified, M54.16 - Radiculopathy, lumbar region, M62.830 - Muscle spasm of back Medications: Changed From gabapentin 300 mg PO BEDTIME 30 caps 1RF M51.36 - Other intervertebral disc degeneration, lumbar region, M54.16 - Radiculopathy, lumbar region To gabapentin 300 mg PO BEDTIME 30 days 30 caps 3RF pain M51.36 - Other intervertebral disc degeneration, lumbar region, M54.16 - Radiculopathy, lumbar region Coding Level of Care Code Est Pt Level 4 (38283) Diagnoses Muscle spasm of back M62.830 Lumbar radiculopathy M54.16 Lumbar spondylosis M47.816 Morbid obesity E66.01 Sacroiliac joint pain M53.3 Disc disease, degenerative, lumbar or lumbosacral M51.37
[2023-06-02 10:04] VITALS: BP 126/78; PULSE 75; O2SAT 98; BMI 40.7
== END 2023-06-02 10:14 | disposition home or self-care (01) ==
PROVIDERS: PCP Internal Medicine; Visit Provider Nurse Practitioner Family
DX: M62.830 Muscle spasm of back (principal); M54.16 Radiculopathy, lumbar region; M47.816 Spondylosis without myelopathy or radiculopathy, lumbar region; E66.01 Morbid (severe) obesity due to excess calories; M53.3 Sacrococcygeal disorders, not elsewhere classified; M51.37 Other intervertebral disc degeneration, lumbosacral region
CPT/HCPCS: 99214

== ENCOUNTER → 2023-06-02 09:53 | Outpatient (BNVA) | payer OTHER, SELFPAY | PROVIDERS: PCP Internal Medicine; Visit Provider Nurse Practitioner Family | DX: R10.13 Epigastric pain (principal); M51.37 Other intervertebral disc degeneration, lumbosacral region; M53.3 Sacrococcygeal disorders, not elsewhere classified; M47.816 Spondylosis without myelopathy or radiculopathy, lumbar region; M54.16 Radiculopathy, lumbar region; M62.830 Muscle spasm of back; E66.01 Morbid (severe) obesity due to excess calories; Z68.41 Body mass index [BMI] 40.0-44.9, adult | CPT/HCPCS: 99212 ==

== ENCOUNTER 2023-06-02 10:20 | Outpatient (AMB) | payer OTHER, SELFPAY ==
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
[2023-06-02 10:33] VITALS: BP 110/73; PULSE 73; BMI 40.5
== END 2023-06-02 10:56 | disposition home or self-care (01) ==
PROVIDERS: PCP Internal Medicine; Visit Provider Internal Medicine Gastroenterology
DX: R10.13 Epigastric pain (principal)
CPT/HCPCS: 99213

== ENCOUNTER 2023-06-26 11:00 | Outpatient (RCR) | payer OTHER, SELFPAY ==
--- NOTE | 2023-06-18 11:49 | MHC.PT.EP ---
[facility] [place] [facility] [place] Office [place] [facility] [address] Colleen De Los Santos [address] [phone] F: [phone] F: [phone] F: [phone] F: [phone] Physical Therapy Plan of Care Date of Evaluation: 06/18/23 Date of Surgery: Diagnosis: radiculopathy, lumbar region. Assessment: Patient is a 47 year old R handed female who presents with s/s consistent with radiculopathy, lumbar region. She is disabled and living a fairly sedentary lifestyle at this time. Patient past medical history is fairly complex and includes sleep apnea, obesity, diabetes, IBS, depression, and recent injections in spine. Current impairments include pain, posture, ROM, strength, flexibility, activity tolerance and functional mobility. Functional limitations include decreased ability to walk, stand, lift, carry, push, pull, sleep, and be active. Patient is motivated with good rehab potential. Skilled PT will address impairments and functional limitations in order to achieve goals. Frequency and Duration: The patient will be seen 2x/week for 5 weeks Short Term Goals: Able to walk/stand/sit > 20 minutes without increasing pain - 3 weeks I with HEP - 2 weeks AROM rotation/flex/ext 75% pain free - 3 weeks Car Knocker Goals: OSwestry 30% or better - 5 weeks 90/90 lacking 25 or less - 5 weeks Able to stand/walk/sit > 30 minutes without increased pain - 5 weeks Able to sleep 6 hours without increasing pain - 5 weeks Treatment Plan: Modalities to reduce pain, spasms and effusion. Manual therapy to restore motion and function. Therapeutic exercise to improve strength and flexibility. Neuromuscular re-education for posture and balance. Therapeutic activities to return to functional activities of daily living. Electronically signed by: Don Jeronimo, PT Please sign and return to therapist. Thank you for your referral.
--- NOTE | 2024-03-11 10:58 | MHC.PT.DC ---
[facility] [place] Office [place] [facility] [place] Office [address] Colleen De Los Santos [address] [phone] F: [phone] F: [phone] F: [phone] F: [phone] Physical Therapy Discharge Report Diagnosis: radiculopathy, lumbar region. Date of Surgery: Date of Evaluation: 06/18/23 Date of Discharge: 08/04/23 Treatments to Date: 2 Cancellations to Date: No Shows to Date: Discharge Status: Patient Elected to Stop Discharge Summary: 06/26/23: pt progressing well with skilled PT. compliant with HEP and with reduced s/s today. continue to progress as tolerated. Patient is a 47 year old R handed female who presents with s/s consistent with radiculopathy, lumbar region. She is disabled and living a fairly sedentary lifestyle at this time. Patient past medical history is fairly complex and includes sleep apnea, obesity, diabetes, IBS, depression, and recent injections in spine. Current impairments include pain, posture, ROM, strength, flexibility, activity tolerance and functional mobility. Functional limitations include decreased ability to walk, stand, lift, carry, push, pull, sleep, and be active. Patient is motivated with good rehab potential. Skilled PT will address impairments and functional limitations in order to achieve goals. Electronically signed by: Don Jeronimo, PT Please sign and return to therapist. Thank you for your referral.
== END 2024-03-11 10:59 | disposition home or self-care (01) ==
LOC: HO.PTCHIC 11:00
PROVIDERS: PCP Internal Medicine; Visit Provider Nurse Practitioner Family
DX: M51.36 Other intervertebral disc degeneration, lumbar region (principal); M54.16 Radiculopathy, lumbar region; M62.830 Muscle spasm of back
CPT/HCPCS: 97110; 97163

== ENCOUNTER 2023-07-08 11:38 | Outpatient (REF) | payer OTHER, SELFPAY ==
[2023-07-08 12:55] LABS: MANUAL DIFF FLAG NO
[2023-07-08 13:09] LABS: Basophils Percent Auto 0.6 % (0-2); Eosinophils Absolute Auto 0.1 X10*3/uL (0.0-0.4); Eosinophils Percent Auto 1.1 % (0-4); Hematocrit 39.1 % (37.0-47.0); Hemoglobin 12.6 g/dl (12.0-16.0); Imm Gran Abs Auto 0.06 X10*3/uL (0.00-0.03); Imm Gran Pct Auto 0.9 % (0.0-0.4); Lymphocytes Absolute Auto 1.8 X10*3/uL (1.2-4.9); Lymphocytes Percent Auto 27.4 % (20-40); Mean Corpuscular HGB Conc 32.2 g/dl (31.0-35.0); Mean Corpuscular Hemoglobin 31.2 pg (27.0-33.0); Mean Corpuscular Volume 96.8 fL (80.0-98.0); Mean Platelet Volume 11.1 fL (9.4-12.3); Monocytes Absolute Auto 0.9 X10*3/uL (0.1-1.2); Monocytes Percent Auto 14.4 % (2-11); Neutrophils Absolute Auto 3.6 x10*3/uL (2.0-8.3); Neutrophils Percent Auto 55.6 % (45-73); Platelet Count 259 X10*3/uL (160-400); Red Blood Count 4.04 X10*6/uL (4.20-5.50); Red Cell Distribution Width 13.7 % (11.0-16.0); White Blood Count 6.5 X10*3/uL (4.8-10.8)
[2023-07-08 13:28] LABS: Appearance Urine Clear; Color Urine Yellow; Glucose Urine UA Negative (Negative); Leukocyte Esterase Urine Small (1+) (Negative); Nitrite Urine Negative (Negative); PH 5.5 (5.0-9.0); Specific Gravity - Urine 1.015 (1.005-1.025); UMIC TRIGGER UACC YES; Urine Blood Negative (Negative); Urine Ketones Negative (Negative); Urine Protein Negative (Neg-Trace)
[2023-07-08 13:35] LABS: Alanine Aminotransferase 16 U/L (0-31); Albumin Level 3.9 g/dL (3.5-5.0); Alkaline Phosphatase 101 U/L (39-117); Anion Gap 10 (12-20); Aspartate Amino Transferase 17 U/L (5-31); Bilirubin Total 0.1 mg/dL (0.0-1.0); Blood Urea Nitrogen 10 mg/dL (9-16); C Reactive Protein 1.13 mg/dL (< or = 0.50); Calcium 9.7 mg/dL (8.4-10.2); Carbon Dioxide 26 mmol/L (22-29); Chloride 108 mmol/L (96-108); Cholesterol 129 mg/dL (<200); Estimated Glomerular Filt Rate > 60; Glucose Fasting 149 mg/dL (60-99); HDL Cholesterol 43 mg/dL (>40); LDL Cholesterol Calculated 48 mg/dL (<100); Potassium 4.1 mmol/L (3.3-5.1); Sodium 140 mmol/L (135-145); Triglycerides 190 mg/dL (<150)
[2023-07-08 13:44] LABS: Erythrocyte Sedimentation Rate 23 MM/HR (0-20)
[2023-07-08 13:52] LABS: Estimated Average Glucose 157 mg/dL; Hemoglobin A1c % 7.1 % (<6.0)
[2023-07-08 13:54] LABS: TSH reflex Free T4 4.16 uIU/mL (0.32-4.0); Vitamin D 25-OH Total 43.8 ng/mL (>30)
[2023-07-08 13:57] LABS: Bacteria Urine None Seen (None Seen); Hyaline Casts Urine 0-2 /LPF (0-2); RBC Urine 0-2 /HPF (0-2); UACC Culture Trigger YES; WBC Urine 0-5 /HPF (0-5)
[2023-07-08 14:07] LABS: Folate 14.4 ng/mL (> or = 4.0); Vitamin B12 1324 pg/mL (200-900)
[2023-07-08 14:18] LABS: Creatinine Urine 79.02 mg/dL; Microalbum/Creatinine Ratio Ur 16.4 ug/mg cr (<30)
[2023-07-08 14:34] LABS: Free T4 (Free Thyroxine) 0.91 ng/dL (0.71-1.85)
[2023-07-10 14:33] LABS: Antibody to SS-A Antigen <1.0 NEG AI (<1.0 NEG); Antibody to SS-B Antigen <1.0 NEG AI (<1.0 NEG)
[2023-07-12 09:13] LABS: Anti Nuclear Antibody Screen NEGATIVE (NEGATIVE)
== END 2023-07-08 11:39 | disposition home or self-care (01) ==
LOC: HO.HMGCLDS 11:38
PROVIDERS: PCP Internal Medicine; Visit Provider Internal Medicine
DX: E78.00 Pure hypercholesterolemia, unspecified (principal); E55.9 Vitamin D deficiency, unspecified; I10 Essential (primary) hypertension; E11.9 Type 2 diabetes mellitus without complications; E53.8 Deficiency of other specified B group vitamins; R68.2 Dry mouth, unspecified; H04.123 Dry eye syndrome of bilateral lacrimal glands; R13.10 Dysphagia, unspecified
CPT/HCPCS: 36415; 80053; 80061; 81001; 82043; 82306; 82570; 82607; 82746; 83036; 84439; 84443; 85025; 85652; 86038; 86140; 86235; 87086

== ENCOUNTER 2023-07-10 11:23 | Outpatient (AMB) | payer OTHER, SELFPAY ==
--- NOTE | 2023-07-10 11:50 | AM.OFFWIN_ITS ---
Intake Vital Signs 07/10/23 11:51 Height 5 ft 4 in BP 122/80 Blood Pressure Location Rt brachial Position Sitting Pulse 80 Pulse Source Pulse Oximeter Temp 97.8 F Temp Source Oral Pulse Oximetry (%) 96 Oxygen Delivery Method Room Air Intake Visit Reasons: EST/cough runny nose (lobby masked) Intake Note: pt is here for c.o cough, runny nose Patient Tobacco Use Status: Never used Tobacco Allergies meclizine Adverse Reaction (Verified 07/10/23 11:51) tachycardia metoclopramide Adverse Reaction (Verified 07/10/23 11:51) tachycardia Medication List - Last Reconciled 07/10/23 by Katie Shelton NP acetaminophen 500 mg PO Q6H PRN [ADULT PULL UPS As directed] albuterol sulfate 90 mcg/actuation (Ventolin HFA) 2 puffs inhalation QID PRN alum-mag hydroxide-simeth 400-400-40 mg/5 mL (Mylanta Maximum Strength) 10 mL PO TID PRN amitriptyline 75 mg PO DAILY atorvastatin 20 mg PO BEDTIME baclofen 10 mg PO BID PRN beclomethasone dipropionate 80 mcg/actuation (Qvar RediHaler) 1 inh inhalation BID benzonatate 100 mg PO TID blood sugar diagnostic (FreeStyle Lite Strips) TEST BLOOD SUGAR DIRECTED 3 TIMES A DAY cane As directed cholecalciferol (vitamin D3) 50 mcg PO DAILY 90 days clonazepam 1 mg PO TID diaper,brief,adult,disposable (Depend Easy Fit Undergarments [facility]) As directed dicyclomine 20 mg PO BID erenumab-aooe (Aimovig Autoinjector) 140 mg subcut [id number] esomeprazole magnesium 40 mg PO DAILY [FREESTYLE LITE TEST STRIPS Test blood sugar as directed 3 times a day - E11.9 -- DIABETES] FreeStyle Lite Meter (blood-glucose meter) As directed NS gabapentin 300 mg PO BEDTIME 30 days lancets (FreeStyle Lancets) As directed- 3 times a day linaclotide (Linzess) 290 mcg PO DAILY liraglutide (Victoza 3-Shamir) 1.2 mg (0.2 mL) subcut DAILY melatonin 6 mg PO BEDTIME metformin 500 mg PO BID 90 days methylcellulose (laxative) (Fiber Therapy (methylcellulose)) 500 mg PO BID miconazole nitrate 2% (Miconazole-7) 1 appful vaginal BEDTIME 7 days miconazole nitrate 2% (Antifungal (miconazole)) 1 appl topical BID miscellaneous medical supply 1 ea miscellaneous DAILY MDD 1 per night NS montelukast 10 mg PO BEDTIME ondansetron 4 mg PO TID pen needle, diabetic (Comfort EZ Pen [place]) As directed daily pioglitazone 30 mg PO DAILY 90 days propranolol 60 mg PO BID sennosides (senna) 17.2 mg (2 x 8.6 mg) PO BEDTIME PRN 90 days sertraline 100 mg PO DAILY simethicone 180 mg PO TID sucralfate (Carafate) 10 mL PO QID topiramate 100 mg PO BID tramadol 50 mg PO TID PRN 30 days triamcinolone acetonide 1 spray intranasal DAILY ubrogepant (Ubrelvy) 100 mg PO DAILY PRN ziprasidone HCl (Geodon) 80 mg PO BID Do you need a note to return to daycare/school/sports/work: Yes HPI HPI Comments History of Present Illness Details 47 y/o female who presents to [facility] walk [facility] n clinic with c/o cough, runny nose and headaches. Symptoms started last Friday. Reports that her entire family tested positive for RSV and worried she might have it, and asking for testing. [facility] Medical History Overactive bladder Diarrhea Morbid obesity with BMI of 40.0-44.9, adult Biliary dyskinesia Elevated TSH Obesity (BMI 30-39.9) Depression Anxiety Insomnia Obstructive sleep apnea Vitamin D deficiency 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 myelopathy or radiculopathy Elevated LFTs Allergic rhinitis Asthma Migraine Pure hypercholesterolemia Benign essential hypertension Diabetes mellitus IBS (irritable bowel syndrome) Gastroparesis Surgical History Status post epidural steroid injection History of cardiac cath Hx of tubal ligation Hx of colonoscopy (~03/2018) Hx of endoscopy History of surgery of head Hx of hysterectomy (~08/2011) Family History Father Diabetes Hypertension Heart problem Mother Arthritis Diabetes Hypertension Maternal Grandmother Breast cancer, Onset Age: 72 Family/Other Diabetes Hypertension Heart problem Social History Household Members: Spouse Housing: House Are you a primary healthcare administrative assistant to a significant other at home: No Do you presently have visiting nurse or other home services: No Alcohol intake: current Alcohol intake frequency: does not drink Comment: NOT INDICATED Patient Tobacco Use Status: Never used Tobacco e-Cigarette/Vaping Use: Never Used Second Hand Smoke Exposure: No Advance Directives Date on File: 03/20/16 service: No Current occupational status: disabled Cognitive needs: No Hearing needs: No Vision needs: Yes Female Reproductive History Menstrual Age of Menarche: 13 Review of Systems Const All systems reviewed & are unremarkable except as noted in HPI and below Physical Exam Vital Signs: Last Vital Signs Temp 97.8 F 07/10/23 11:51 Pulse 80 07/10/23 11:51 BP 122/80 07/10/23 11:51 Pulse Ox 96 07/10/23 11:51 Oxygen Delivery Method Room Air 07/10/23 11:51 Const General: no acute distress HEENT Head: Yes normocephalic Ears: external ears normal and TM's normal bilaterally General nose exam: Nasal discharge present Mouth: moist mucous membranes Throat: Yes postnasal drainage Resp Effort & Inspection: normal respiratory effort Auscultation: clear to auscultation bilaterally Cardio Rate: regular rate Rhythm: regular rhythm Assessment & Plan Assessment & Plan (1) URI, acute: Code(s): J06.9 - Acute upper respiratory infection, unspecified Plan: -Get regular and adequate amounts of sleep. -Hydrate with warm fluids. - Wash hands frequently. (2) Cough in adult: Code(s): R05.9 - Cough, unspecified Plan: Get regular and adequate amounts of sleep. -Hydrate with warm fluids. - Wash hands frequently. Plan Get regular and adequate amounts of sleep. -Hydrate with warm fluids. - Wash hands frequently. Orders: Orders SARS-CoV2/FLU/RSV Today J06.9 - Acute upper respiratory infection, unspecified Medications: New benzonatate 100 mg PO TID 30 caps 0RF J06.9 - Acute upper respiratory infection, unspecified, R05.9 - Cough, unspecified acetaminophen 500 mg PO Q6H PRN 20 caps 0RF fever J06.9 - Acute upper respiratory infection, unspecified Coding Level of Care Code Est Pt Level 2 (01130) Diagnoses URI, acute J06.9 Cough in adult R05.9 Time Spent (min) 10
[2023-07-10 11:51] VITALS: BP 122/80; PULSE 80; TEMP 36.6; O2SAT 96
== END 2023-07-10 12:29 | disposition home or self-care (01) ==
PROVIDERS: PCP Internal Medicine; Visit Provider Nurse Practitioner Family
DX: J06.9 Acute upper respiratory infection, unspecified (principal); R05.9 Cough, unspecified
CPT/HCPCS: 99213

== ENCOUNTER 2023-07-10 12:22 | Outpatient (REF) | payer OTHER, SELFPAY ==
[2023-07-10 14:15] LABS: Influenza A PCR NEGATIVE (Negative); Influenza B PCR NEGATIVE (Negative); Resp Syncy Virus RNA Qual PCR POSITIVE (Negative); SARS COV2 PCR INHOUSE NEGATIVE (Negative)
== END 2023-07-10 12:23 | disposition home or self-care (01) ==
LOC: HO.LAB 12:22
PROVIDERS: Visit Provider Nurse Practitioner Family
DX: J06.9 Acute upper respiratory infection, unspecified (principal); Z11.52 Encounter for screening for COVID-19; Z20.828 Contact with and (suspected) exposure to other viral communicable diseases
CPT/HCPCS: 0241U

== ENCOUNTER 2023-07-18 10:16 | Outpatient (REF) | payer OTHER, SELFPAY ==
[2023-07-18 14:05] LABS: Appearance Urine Clear; Color Urine Yellow; Glucose Urine UA Negative (Negative); Leukocyte Esterase Urine Trace (Negative); Nitrite Urine Negative (Negative); PH 6.5 (5.0-9.0); UMIC TRIGGER UACC YES; Urine Blood Negative (Negative); Urine Ketones Negative (Negative); Urine Protein Negative (Neg-Trace)
[2023-07-18 14:09] LABS: Bacteria Urine None Seen (None Seen); Hyaline Casts Urine 0-2 /LPF (0-2); RBC Urine 0-2 /HPF (0-2); Squamous Epithelial Cell Urine 0-2 /HPF (0-2); WBC Urine 0-5 /HPF (0-5)
== END 2023-07-18 10:17 | disposition home or self-care (01) ==
LOC: HO.HMGCLDS 10:16
PROVIDERS: PCP Internal Medicine; Visit Provider Internal Medicine
DX: R30.0 Dysuria (principal)
CPT/HCPCS: 81001; 81003

== ENCOUNTER 2023-07-22 10:57 | Outpatient (AMB) | payer OTHER, SELFPAY ==
--- NOTE | 2023-07-22 11:04 | MHC.PC.OV ---
Vital Signs 07/22/23 11:05 Height 5 ft 4 in Weight 235 lb 6 oz BMI 40.4 BP 110/80 Blood Pressure Location Lt brachial Position Sitting Pulse 83 Pulse Source Pulse Oximeter Pulse Oximetry (%) 97 Oxygen Delivery Method Room Air Intake Visit Reasons: hyperlipidemia, DM, HTN, GINETTE Coil Shaper Required: No Accompanied by: Self / Same As Patient Allergies meclizine Adverse Reaction (Verified 07/22/23 11:29) tachycardia metoclopramide Adverse Reaction (Verified 07/22/23 11:29) tachycardia Medication List - Last Reconciled 07/22/23 by Villa Lr MD acetaminophen 500 mg PO Q6H PRN [ADULT PULL UPS As directed] albuterol sulfate 90 mcg/actuation (Ventolin HFA) 2 puffs inhalation QID PRN alum-mag hydroxide-simeth 400-400-40 mg/5 mL (Mylanta Maximum Strength) 10 mL PO TID PRN amitriptyline 75 mg PO DAILY atorvastatin 20 mg PO BEDTIME baclofen 10 mg PO BID PRN beclomethasone dipropionate 80 mcg/actuation (Qvar RediHaler) 1 inh inhalation BID benzonatate 100 mg PO TID blood sugar diagnostic (FreeStyle Lite Strips) TEST BLOOD SUGAR DIRECTED 3 TIMES A DAY cane As directed cholecalciferol (vitamin D3) 50 mcg PO DAILY 90 days clonazepam 1 mg PO TID diaper,brief,adult,disposable (Depend Easy Fit Undergarments [facility] [place]) As directed dicyclomine 20 mg PO BID erenumab-aooe (Aimovig Autoinjector) 140 mg subcut [id number] esomeprazole magnesium 40 mg PO DAILY [FREESTYLE LITE TEST STRIPS Test blood sugar as directed 3 times a day - E11.9 -- DIABETES] FreeStyle Lite Meter (blood-glucose meter) As directed NS gabapentin 300 mg PO BEDTIME 30 days lancets (FreeStyle Lancets) As directed- 3 times a day linaclotide (Linzess) 290 mcg PO DAILY liraglutide (Victoza 3-Shamir) 1.2 mg (0.2 mL) subcut DAILY melatonin 6 mg PO BEDTIME metformin 500 mg PO BID 90 days methylcellulose (laxative) (Fiber Therapy (methylcellulose)) 500 mg PO BID miconazole nitrate 2% (Miconazole-7) 1 appful vaginal BEDTIME 7 days miconazole nitrate 2% (Antifungal (miconazole)) 1 appl topical BID miscellaneous medical supply 1 ea miscellaneous DAILY MDD 1 per night NS montelukast 10 mg PO BEDTIME ondansetron 4 mg PO TID pen needle, diabetic (Comfort EZ Pen [place]) As directed daily pioglitazone 30 mg PO DAILY 90 days propranolol 60 mg PO BID sennosides (senna) 17.2 mg (2 x 8.6 mg) PO BEDTIME PRN 90 days sertraline 100 mg PO DAILY simethicone 180 mg PO TID sucralfate (Carafate) 10 mL PO QID topiramate 100 mg PO BID tramadol 50 mg PO TID PRN 30 days triamcinolone acetonide 1 spray intranasal DAILY ubrogepant (Ubrelvy) 100 mg PO DAILY PRN ziprasidone HCl (Geodon) 80 mg PO BID Tobacco use date assessed: 07/22/23 Dental Screening Dental Screen Date: 07/22/23 Did you have a dental visit in the last 12 months?: Yes Did you have a dental problem in the last 6 months where you did not have access to dental care?: No Was dental information given to patient?: Patient has dentist HPI hyperlipidemia, DM, HTN, GINETTE HPI Details Patient comes in today for her follow up visit States that she feels okay She tested positive for RSV a couple of weeks ago - presented to the walk-in clinic with increased cough and congestion after entire family tested positive for RSV States that most of her symptoms have gradually cleared up although she currently still has some lingering non-productive cough as well as some congestion and pressure mostly behind her eyes that sometimes cause her headaches to flare up - would like to get something to help relieve her sinus pressure Has used Nasacort nasal spray in the past but states that the spray tends to irritate her sinuses so she stopped using them a while back She denies any dizziness; denies any fever or sore throat Denies any chest pains, no SOB No nausea/vomiting, no abdominal pain No change in bowel habits noted Needs several of her Rx refilled Had her follow up labs done a couple of weeks ago - to discuss her results [facility] Medical History Overactive bladder Diarrhea Morbid obesity with BMI of 40.0-44.9, adult Biliary dyskinesia Elevated TSH Obesity (BMI 30-39.9) Depression Anxiety Insomnia Obstructive sleep apnea Vitamin D deficiency 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 myelopathy or radiculopathy Elevated LFTs Allergic rhinitis Asthma Migraine Pure hypercholesterolemia Benign essential hypertension Diabetes mellitus IBS (irritable bowel syndrome) Gastroparesis Surgical History Status post epidural steroid injection History of cardiac cath Hx of tubal ligation Hx of colonoscopy (~03/2018) Hx of endoscopy History of surgery of head Hx of hysterectomy (~08/2011) Family History Father Diabetes Hypertension Heart problem Mother Arthritis Diabetes Hypertension Maternal Grandmother Breast cancer, Onset Age: 72 Family/Other Diabetes Hypertension Heart problem Social History Household Members: Spouse Housing: House Are you a primary ostomy care nurse to a significant other at home: No Do you presently have visiting nurse or other home services: No Alcohol intake: current Alcohol intake frequency: does not drink Comment: NOT INDICATED Patient Tobacco Use Status: Never used Tobacco e-Cigarette/Vaping Use: Never Used Second Hand Smoke Exposure: No Advance Directives Date on File: 03/20/16 service: No Current occupational status: disabled Cognitive needs: No Hearing needs: No Vision needs: Yes Female Reproductive History Menstrual Age of Menarche: 13 Questionnaire PHQ-9 Over the last 2 weeks, how often have you been bothered by any of the following problems? 1. Little interest or pleasure in doing things: not at all 2. Feeling down, depressed, or hopeless: not at all 3. Trouble falling or staying asleep, or sleeping too much: not at all 4. Feeling tired or having little energy: not at all 5. Poor appetite or overeating: not at all 6. Feeling bad about yourself - or that you are a failure or have let yourself or your family down: not at all 7. Trouble concentrating on things, such as reading the newspaper or watching television: not at all 8. Moving or speaking so slowly that other people could have noticed. Or the opposite - being so fidgety or restless that you have been moving around a lot more than usual: not at all 9. Thoughts that you would be better off or of hurting yourself in some way: not at all Total score: 0 Depression Screening Interpretation: Negative (is on Rx) Depression Screening Done: Yes [id number] - PHQ-9 Billing: Yes Source: Developed by Drs. Raymond Plunkett, Meaghan Art, Keshav Castro and colleagues, with an educational david from [employer]. Thrive Questionnaire Date Thrive assessed: 07/22/23 I am a: Patient What is your living situation today?: I have a steady place to live Within the past 12 months, did the food you bought not last and you didn't have the money to get more?: Never true Within the past 12 months, did you worry whether your food would run out before you got money to buy more?: Never true Do you have trouble paying for medicines?: No Do you have trouble getting transportation to medical appointments?: No Do you have trouble paying your heating and electricity bill?: No Do you have trouble taking care of your child, family member or friend?: No Do you have trouble with day-to-day activities such as bathing, preparing meals, shopping, managing finances, etc.?: No Are you currently unemployed and looking for a job?: No Are you interested in more education?: No Please select the resources that you would like help with: None Currently or been in a relationship where the following occur: no concerns reported THRIVE Score: 0 AUDIT C Alcohol Use Questionnaire (AUDIT-C) 1. How often do you have a drink containing alcohol?: Never 3. How often do you have six or more drinks on one occasion?: Never Total Score: 0 Score Reviewed/Action Taken: Yes FADUMO-7 AMB Questionnaire FADUMO-7 Date FADUMO - 7 assessed: 07/22/23 Feeling nervous, anxious, or on edge: 0 = Not at all Not being able to stop or control worryin = Not at all Worrying too much about different things: 0 = Not at all Trouble relaxin = Not at all Being so restless that it is hard to sit still: 0 = Not at all Becoming easily annoyed or irritable: 0 = Not at all Feeling afraid as if something awful might happen: 0 = Not at all Total FADUMO-7 score (0-4 normal; 5-9 mild; 10-14 moderate; 15-21 severe): 0 Source: Developed by Drs. Raymond Plunkett, Meaghan Art, Keshav Castro and colleagues, with an educational advid from [employer]. Review of Systems Const Denies chills, Reports fatigue, Denies fever(s) and Reports headache(s) (occasional, most due to sinus congestion/pressure - see HPI) Eyes Reports dry eyes (on and off) ENT Denies dysphagia, Denies dizziness, Denies otalgia, Reports headache(s) (occasional, most due to sinus congestion/pressure - see HPI), Reports nasal congestion (at times), Denies odynophagia, Reports sinus pressure and Denies sore throat Card Denies chest pain, Denies chest pain with activity, Denies palpitations and Reports dyspnea on exertion (mild) Resp Denies chest congestion, Reports cough (on and off, non-productive), Reports dyspnea on exertion (mild) and Denies wheezing GI Denies abdominal pain, Denies dysphagia, Denies heartburn, Denies diarrhea, Denies nausea, Denies odynophagia and Denies vomiting Denies hematuria, Denies difficulty voiding, Reports nocturia, Denies dysuria, Reports urinary incontinence and Denies urinary urgency Musc Reports back pain (over the lower back - chronic) and Reports arthralgias (on and off) Neuro Denies dizziness and Reports headache(s) (occasional, most due to sinus congestion/pressure - see HPI) Endo Reports fatigue and Denies palpitations Aller/Immun Denies wheezing Physical exam (Primary Care) Vital Signs: Last Vital Signs Pulse 83 07/22/23 11:05 BP 110/80 07/22/23 11:05 Pulse Ox 97 07/22/23 11:05 Oxygen Delivery Method Room Air 07/22/23 11:05 BMI result Body Mass Index 40.4 Tobacco/Smoking Status: Tobacco use Status Tobacco use date assessed 07/22/23 07/22/23 11:13 Patient Tobacco Use Status Never used Tobacco 07/22/23 11:13 e-Cigarette/Vaping Use Never Used 07/22/23 11:13 PHQ-9: PHQ-9 Score PHQ-9: Total score 0 07/22/23 11:13 Depression Screening Interpretation: Negative (is on Rx) Thrive Assessment: Date of Thrive Assessment Date Thrive assessed 07/22/23 07/22/23 11:13 Currently or been in a relationship where the following occur: no concerns reported Results Reviewed Results Reviewed: Laboratory Tests 07/08/23 07/08/23 07/18/23 11:44 11:44 10:20 WBC 6.5 Hgb 12.6 Hct 39.1 Plt Count 259 ESR 23 H Sodium 140 Potassium 4.1 Creatinine 0.76 Estimated GFR > 60 Fasting Glucose 149 H Hemoglobin A1c % 7.1 H Calcium 9.7 AST 17 ALT 16 C-Reactive Protein 1.13 H Triglycerides 190 H Cholesterol 129 LDL Cholesterol, Calc 48 HDL Cholesterol 43 25-OH Vitamin D Total 43.8 TSH 4.16 H Free T4 0.91 Ur Specific [place] 1.020 Urine Protein Negative Urine Glucose (UA) Urine Blood Urine Nitrite Negative Ur Leukocyte Esterase Trace H Microalb/Creat Ratio 16.4 LAURENT Screen NEGATIVE SS-A/Ro Antibody <1.0 NEG SS-B/La Antibody <1.0 NEG 07/18/23 10:20 WBC Hgb Hct Plt Count ESR Sodium Potassium Creatinine Estimated GFR Fasting Glucose Hemoglobin A1c % Calcium AST ALT C-Reactive Protein Triglycerides Cholesterol LDL Cholesterol, Calc HDL Cholesterol 25-OH Vitamin D Total TSH Free T4 Ur Specific [place] Urine Protein Urine Glucose (UA) Negative Urine Blood Negative Urine Nitrite Ur Leukocyte Esterase Microalb/Creat Ratio LAURENT Screen SS-A/Ro Antibody SS-B/La Antibody Assessment and Plan Assessment & Plan (1) Pure hypercholesterolemia: Code(s): E78.00 - Pure hypercholesterolemia, unspecified Plan: Results of her labs done a couple of weeks ago reviewed and discussed with patient Reinforced low cholesterol diet Continue Atorvastatin 20 mg QD Patient underwent coronary angiography on 06/11/2022 after her cardiac stress testing done a few months prior came back abnormal - myocardial perfusion study revealed (+) distal lateral, apical and inferoapical ischemia Cardiac catheterization revealed completely normal coronaries with no atherosclerotic lesions Will recheck her labs and fasting lipids in 4 months for follow-up (2) Diabetes mellitus: Comment: taking Victoza, Metformin & Actos Code(s): E11.9 - Type 2 diabetes mellitus without complications Qualifiers: Diabetes mellitus type: type 2 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: without shelter use Diabetes mellitus complication status: without complication Qualified Code(s): E11.9 - Type 2 diabetes mellitus without complications Plan: HgbA1c was at 7.1% on her recent labs from 2 weeks ago (was at 7.2% a few months ago) - goal is HgbA1c of < 7.0% Reinforced diabetic diet Continue Victoza 18 mg/ 3 mL 0.2 mL QD, Metformin 500 mg BID and Pioglitazone 30 mg QD (3) Benign essential hypertension: Code(s): I10 - Essential (primary) hypertension Plan: Reinforced low sodium diet - goal is systolic BP of at least 120 to 130 mm or less Patient is reminded to continue monitoring her blood pressure regularly - patient has not needed any Rx for her BP for the past year or two now although she is on Propranolol 80 mg BID for her migraine headaches (4) Migraine: Code(s): G43.909 - Migraine, unspecified, not intractable, without status migrainosus Qualifiers: Migraine type: unspecified Status migrainosus presence: without status migrainosus Intractability: not intractable Qualified Code(s): G43.909 - Migraine, unspecified, not intractable, without status migrainosus Plan: Continue Topiramate 100 mg BID, Propranolol 80 mg BID and Fioricet 50-325 mg 1 tablet every 4-6 hours as needed Continue Ubrelvy 100 mg PRN; patient also receives Botox injection every 3 months from Neurology, and states that her migraine headaches have been much better controlled lately on her current Rx Follow-up with Neurology (Dr. Lieberman) every 3 months as scheduled (5) Asthma: Comment: SHE CONTINUES TO COMPLAIN OF SHORTNESS OF BREATH ON WALKING, AND SOMETIME WAKES UP AT NIGHT PULMONARY FUNCTION TEST IS ESSENTIALLY NORMAL. I THINK SHORTNESS OF BREATH ON EXERTION IS RELATED TO HER MORBID OBESITY AND ALSO SLEEP APNEA. HOWEVER SUBJECTIVELY SHE HAS SYMPTOMS OF BRONCHIAL ASTHMA AND ALLERGIC RHINITIS. SO , IT IS OKAY FOR HER TO KEEP USING Q WERE-81 INHALATION B.I.D. AND ALBUTEROL 2 PUFFS Q 4-6 HOURS ONLY P.R.N.. Code(s): J45.909 - Unspecified asthma, uncomplicated Qualifiers: Asthma severity: moderate Asthma persistence: persistent Asthma complication type: uncomplicated Qualified Code(s): J45.40 - Moderate persistent asthma, uncomplicated Plan: Controlled Continue QVAR RediHaler 80 mcg 1 puff twice a day and ProAir HFA 2 puffs 4 times a day as needed (6) Allergic rhinitis: Comment: SYMPTOMS OF CHRONIC ALLERGIC RHINITIS SEEM TO BE UNDER CONTROLLED. ADVISED TO CONTINUE USING MONTELUKAST 10 MG DAILY. Code(s): J30.9 - Allergic rhinitis, unspecified Qualifiers: Allergic rhinitis trigger: unspecified Allergic rhinitis seasonality: unspecified Qualified Code(s): J30.9 - Allergic rhinitis, unspecified Plan: Continue Montelukast 10 mg QD; was on Nasacort nasal spray 1 spray to each nostril QD in the past but she stopped using it a while back as she felt that the nasal spray irritates her sinuses Will try her instead on Rhinocort Aqua 2 sprays to each nostril QD PRN (7) Obstructive sleep apnea: Comment: uses CPAP THIS PATIENT IS KNOWN TO HAVE OBSTRUCTIVE SLEEP APNEA SINCE 2019 HAS BEEN USING CPAP REGULARLY. SHE IS BEING FOLLOWED BY AND MANAGED FOR SLEEP APNEA BY HER NEUROLOGIST, DR. LIEBERMAN . CLAIMS THAT SHE DOES USE THE CPAP EVERY NIGHT. Code(s): G47.33 - Obstructive sleep apnea (adult) (pediatric) Plan: Continue using her CPAP device every night when sleeping Follow up with Sleep Medicine as scheduled (8) 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 myelopathy or radiculopathy: Code(s): M47.816 - Spondylosis without myelopathy or radiculopathy, lumbar region Plan: Reinforced activity and weight-lifting restrictions Repeat lumbar spine x-rays done a couple of years ago showed (+) degenerative changes at L5-S1 and lower lumbar facet arthritis Lumbar spine MRI done on 09/14/2021 revealed a severe disc height loss with mild subchondral endplate edema at L5-S1. The bulging this flattens the ventral thecal sac with encroachment on the subarticular zones and abutment of both exiting L5 nerve roots Continue Tramadol 50 mg TID PRN and Gabapentin 300 mg Q HS Follow up with pain management as scheduled - gets injections when needed with (+) relief (9) Chronic idiopathic constipation: Code(s): K59.04 - Chronic idiopathic constipation Plan: Reinforced increased oral fluids and dietary fiber Continue Linzess 290 mcg QD, MOM 5 ml Q HS and Fiber Laxative daily Follow up with GI as scheduled for continuing management of her chronic constipation (10) GERD (gastroesophageal reflux disease): Code(s): K21.9 - Gastro-esophageal reflux disease without esophagitis Qualifiers: Esophagitis presence: without esophagitis Qualified Code(s): K21.9 - Gastro-esophageal reflux disease without esophagitis Plan: Dietary restrictions reinforced Continue Pantoprazole 40 mg once a day and Famotidine 20 mg twice a day as needed (11) Biliary dyskinesia: Code(s): K82.8 - Other specified diseases of gallbladder Plan: HIDA scan with CCK done in November 2020 revealed poor gallbladder emptying and low gallbladder ejection fraction consistent with impaired gallbladder contractility and suggests chronic cholecystitis Was referred to and seen by surgery last year and advised that her symptoms are more suggestive of GERD and recommended no surgery at the time but patient was advised to call if her symptoms get worse (12) Elevated LFTs: Code(s): R79.89 - Other specified abnormal findings of blood chemistry Plan: Improved - is most likely related to her weight (hepatosteatosis) LFTs on her recent labs remain normal - will continue to monitor her LFTs regularly (13) Vitamin D deficiency: Code(s): E55.9 - Vitamin D deficiency, unspecified Plan: Continue Vitamin D3 2000 units QD (14) Dry mouth and eyes: Code(s): R68.2 - Dry mouth, unspecified; H04.123 - Dry eye syndrome of bilateral lacrimal glands Plan: Advised that these may be side effects of her Propranolol Rx Rheumatologic work ups done recently all came back negative (15) Elevated vitamin B12 level: Code(s): R74.8 - Abnormal levels of other serum enzymes Plan: Patient is advised that her Vitamin B12 level has been elevated significantly for a while now and her current level remains elevated Have reviewed her meds together with patient and she does not appear to be taking anything with Vitamin B12, including Vitamin B complex at this time so unclear as to why her B12 level is significantly elevated Will refer her to hematology for further evaluation and management (16) Overactive bladder: Code(s): N32.81 - Overactive bladder Plan: Follow up with urology as scheduled Uses Adult pull ups to help manage her OAB (17) Insomnia: Code(s): G47.00 - Insomnia, unspecified Qualifiers: Insomnia type: unspecified Qualified Code(s): G47.00 - Insomnia, unspecified Plan: Sleep hygiene reinforced Continue Zolpidem 10 mg Q HS PRN (18) Anxiety: Code(s): F41.9 - Anxiety disorder, unspecified Plan: Continue Clonazepam 1 mg Q HS PRN (19) Depression: Code(s): F32.9 - Major depressive disorder, single episode, unspecified Qualifiers: Depression Type: major depressive disorder Major depression recurrence: recurrent Active/Remission status: currently active Major depression episode severity: unspecified Qualified Code(s): F33.9 - Major depressive disorder, recurrent, unspecified Plan: Continue Geodon 60 mg twice a day, Sertraline 50 mg once a day, Amitriptyline 150 mg once a day at bedtime and Ziprasidone 80 mg twice a day Follow-up with Psychiatry as scheduled (20) Morbid obesity with BMI of 40.0-44.9, adult: Comment: BMI=42.1 SHE HAS BEEN MORBIDLY OBESE FOR MANY YEARS. SHE TOLD ME THAT SHE IS TRYING TO CUT DOWN THE INTAKE OF FOOD AND TRYING TO WALK DAILY. BECAUSE OF DYSPNEA ON MINIMAL EXERTION SHE IS NOT ABLE TO DO MUCH EXERCISE OR WALK AROUND. Code(s): E66.01 - Morbid (severe) obesity due to excess calories; Z68.41 - Body mass index [BMI] 40.0-44.9, adult Plan: Reinforced diet/exercise as tolerated /lose weight Plan Follow up in 4 months Orders: Orders Complete Blood Count Auto Diff 4 Months D64.9 - Anemia, unspecified Lipid Panel 4 Months E78.00 - Pure hypercholesterolemia, unspecified Comprehensive [place]. Panel Fast 4 Months E78.00 - Pure hypercholesterolemia, unspecified TSH reflex Free T4 4 Months E78.00 - Pure hypercholesterolemia, unspecified Hemoglobin A1c 4 Months E11.9 - Type 2 diabetes mellitus without complications Microalbumin, Random (w Creat) 4 Months E11.9 - Type 2 diabetes mellitus without complications Vitamin B12 and Folate 4 Months E53.8 - Deficiency of other specified B group vitamins Vitamin D 25-OH Total 4 Months E55.9 - Vitamin D deficiency, unspecified UA CC w/rflx Micro + Cult 4 Months R30.0 - Dysuria Referrals Hematology & Oncology Referral R74.8 - Abnormal levels of other serum enzymes Medications: New budesonide 32 mcg/actuation administer into each nostril 2 sprays intranasal DAILY PRN 8.43 mL 1RF nasal and sinus congestion Changed From atorvastatin 20 mg PO BEDTIME To atorvastatin 20 mg PO BEDTIME 90 tabs 1RF 90 days From montelukast 10 mg PO BEDTIME To montelukast 10 mg PO BEDTIME 90 tabs 3RF 90 days Refilled metformin 500 mg PO BID 180 tabs 1RF 90 days E11.9 - Type 2 diabetes mellitus without complications tramadol Take 1 tablet orally 2-3 times a day as needed for pain 50 mg PO TID PRN 90 tabs 0RF pain 30 days cholecalciferol (vitamin D3) 50 mcg PO DAILY 90 caps 3RF 90 days E55.9 - Vitamin D deficiency, unspecified pioglitazone 30 mg PO DAILY 90 tabs 1RF 90 days E11.9 - Type 2 diabetes mellitus without complications Coding Level of Care Code Est Pt Level 4 (14148) Diagnoses Pure hypercholesterolemia E78.00 Type 2 diabetes mellitus without complication, without long-term current use of insulin E11.9 Diabetes mellitus type: type 2 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 Diabetes mellitus complication status: without complication Benign essential hypertension I10 Migraine without status migrainosus, not intractable, unspecified migraine type G43.909 Migraine type: unspecified Status migrainosus presence: without status migrainosus Intractability: not intractable Moderate persistent asthma without complication J45.40 Asthma severity: moderate Asthma persistence: persistent Asthma complication type: uncomplicated Allergic rhinitis, unspecified seasonality, unspecified trigger J30.9 Allergic rhinitis trigger: unspecified Allergic rhinitis seasonality: unspecified Obstructive sleep apnea G47.33 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 myelopathy or radiculopathy M47.816 Chronic idiopathic constipation K59.04 Gastroesophageal reflux disease without esophagitis K21.9 Esophagitis presence: without esophagitis Biliary dyskinesia K82.8 Elevated LFTs R79.89 Vitamin D deficiency E55.9 Dry mouth and eyes R68.2; H04.123 Elevated vitamin B12 level R74.8 Overactive bladder N32.81 Insomnia, unspecified type G47.00 Insomnia type: unspecified Anxiety F41.9 Episode of recurrent major depressive disorder, unspecified depression episode severity F33.9 Depression Type: major depressive disorder Major depression recurrence: recurrent Active/Remission status: currently active Major depression episode severity: unspecified Morbid obesity with BMI of 40.0-44.9, adult E66.01; Z68.41
[2023-07-22 11:05] VITALS: BP 110/80; PULSE 83; O2SAT 97; BMI 40.4
== END 2023-07-22 11:49 | disposition home or self-care (01) ==
PROVIDERS: PCP Internal Medicine; Visit Provider Internal Medicine
DX: E78.00 Pure hypercholesterolemia, unspecified (principal); E11.9 Type 2 diabetes mellitus without complications; I10 Essential (primary) hypertension; G43.909 Migraine, unspecified, not intractable, without status migrainosus; J45.40 Moderate persistent asthma, uncomplicated; G47.33 Obstructive sleep apnea (adult) (pediatric); M47.816 Spondylosis without myelopathy or radiculopathy, lumbar region; K59.04 Chronic idiopathic constipation; K21.9 Gastro-esophageal reflux disease without esophagitis; K82.8 Other specified diseases of gallbladder; R79.89 Other specified abnormal findings of blood chemistry; E55.9 Vitamin D deficiency, unspecified
CPT/HCPCS: 99214

== ENCOUNTER 2023-07-24 15:19 | Outpatient (AMB) | payer OTHER, SELFPAY ==
[2023-07-24 15:24] VITALS: BP 110/78; PULSE 90; O2SAT 98; BMI 41.2
--- NOTE | 2023-07-24 15:24 | MHC.OFFVIS ---
Intake Vital Signs 07/24/23 15:24 Height 5 ft 4 in Weight 240 lb 4.862 oz BMI 41.2 BP 110/78 Blood Pressure Location Lt brachial Position Sitting Pulse 90 Pulse Source Pulse Oximeter Pulse Oximetry (%) 98 Oxygen Delivery Method Room Air Intake Visit Reasons: Dyspnea Intake Note: pt is here for follow up and today she is doing well, pt did have RSV no hospital required. Websphere Message Broker Developer Required: Yes Websphere Message Broker Developer Name: [id number] Allergies meclizine Adverse Reaction (Verified 07/24/23 15:30) tachycardia metoclopramide Adverse Reaction (Verified 07/24/23 15:30) tachycardia Medication List - Last Reconciled 07/24/23 by Nasreen Bella MD acetaminophen 500 mg PO Q6H PRN [ADULT PULL UPS As directed] albuterol sulfate 90 mcg/actuation (Ventolin HFA) 2 puffs inhalation QID PRN alum-mag hydroxide-simeth 400-400-40 mg/5 mL (Mylanta Maximum Strength) 10 mL PO TID PRN amitriptyline 75 mg PO DAILY atorvastatin 20 mg PO BEDTIME 90 days baclofen 10 mg PO BID PRN 30 days beclomethasone dipropionate 80 mcg/actuation (Qvar RediHaler) 1 inh inhalation BID benzonatate 100 mg PO TID blood sugar diagnostic (FreeStyle Lite Strips) TEST BLOOD SUGAR DIRECTED 3 TIMES A DAY budesonide 32 mcg/actuation 2 sprays intranasal DAILY PRN cane As directed cholecalciferol (vitamin D3) 50 mcg PO DAILY 90 days clonazepam 1 mg PO TID diaper,brief,adult,disposable (Depend Easy Fit Undergarments [facility] [place]) As directed dicyclomine 20 mg PO BID erenumab-aooe (Aimovig Autoinjector) 140 mg subcut [id number] esomeprazole magnesium 40 mg PO DAILY [FREESTYLE LITE TEST STRIPS Test blood sugar as directed 3 times a day - E11.9 -- DIABETES] FreeStyle Lite Meter (blood-glucose meter) As directed NS gabapentin 300 mg PO BEDTIME 30 days lancets (FreeStyle Lancets) As directed- 3 times a day linaclotide (Linzess) 290 mcg PO DAILY liraglutide (Victoza 3-Shamir) 1.2 mg (0.2 mL) subcut DAILY melatonin 6 mg PO BEDTIME metformin 500 mg PO BID 90 days methylcellulose (laxative) (Fiber Therapy (methylcellulose)) 500 mg PO BID miconazole nitrate 2% (Miconazole-7) 1 appful vaginal BEDTIME 7 days miconazole nitrate 2% (Antifungal (miconazole)) 1 appl topical BID miscellaneous medical supply 1 ea miscellaneous DAILY MDD 1 per night NS montelukast 10 mg PO BEDTIME 90 days ondansetron 4 mg PO TID pen needle, diabetic (Comfort EZ Pen [place]) As directed daily pioglitazone 30 mg PO DAILY 90 days propranolol 60 mg PO BID sennosides (senna) 17.2 mg (2 x 8.6 mg) PO BEDTIME PRN 90 days sertraline 100 mg PO DAILY simethicone 180 mg PO TID sucralfate (Carafate) 10 mL PO QID topiramate 100 mg PO BID tramadol 50 mg PO TID PRN 30 days triamcinolone acetonide 1 spray intranasal DAILY ubrogepant (Ubrelvy) 100 mg PO DAILY PRN ziprasidone HCl (Geodon) 80 mg PO BID Do you need a note to return to daycare/school/sports/work: No HPI Dyspnea HPI Details 47 years old [place]-speaking, very pleasant female. Comes for her follow-up for allergic rhinitis and bronchial asthma. She is coming after a long while but now she was out of her meds. Overall she is feeling okay and has complained of only mild nasal congestion and intermittent cough. She has had no bouts of wheezing. She remains grossly overweight . She has obstructive sleep apnea being treated with CPAP. For [place] she management she is being [place] [facility] [facility] Medical History Overactive bladder Diarrhea Morbid obesity with BMI of 40.0-44.9, adult Biliary dyskinesia Elevated TSH Obesity (BMI 30-39.9) Depression Anxiety Insomnia Obstructive sleep apnea Vitamin D deficiency 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 myelopathy or radiculopathy Elevated LFTs Allergic rhinitis Asthma Migraine Pure hypercholesterolemia Benign essential hypertension Diabetes mellitus IBS (irritable bowel syndrome) Gastroparesis Surgical History Status post epidural steroid injection History of cardiac cath Hx of tubal ligation Hx of colonoscopy (~03/2018) Hx of endoscopy History of surgery of head Hx of hysterectomy (~08/2011) Family History Father Diabetes Hypertension Heart problem Mother Arthritis Diabetes Hypertension Maternal Grandmother Breast cancer, Onset Age: 72 Family/Other Diabetes Hypertension Heart problem Social History Household Members: Spouse Housing: House Are you a primary geriatric care manager to a significant other at home: No Do you presently have visiting nurse or other home services: No Alcohol intake: current Alcohol intake frequency: does not drink Comment: NOT INDICATED Patient Tobacco Use Status: Never used Tobacco e-Cigarette/Vaping Use: Never Used Second Hand Smoke Exposure: No Advance Directives Date on File: 03/20/16 service: No Current occupational status: disabled Cognitive needs: No Hearing needs: No Vision needs: Yes Female Reproductive History Menstrual Age of Menarche: 13 Review of Systems Const All systems reviewed & are unremarkable except as noted in HPI and below Reports headache(s) Eyes Reports no additional complaints ENT Reports no additional complaints and Reports headache(s) Card Denies irregular heart rhythm, Denies leg edema and Reports dyspnea on exertion Resp Reports as per HPI and Reports dyspnea on exertion GI Reports no additional complaints Reports no additional complaints Musc Reports back pain, Reports myalgias and Reports arthralgias Skin/Breast Reports system reviewed and no additional complaints, except as documented Neuro Reports headache(s) Psych Reports anxiety and Reports depression Endo Reports other (DIABETES MELLITUS) Sohail/Lymph Reports no additional complaints Aller/Immun Reports no additional complaints Physical Exam Vital Signs: Last Vital Signs Pulse 90 07/24/23 15:24 BP 110/78 07/24/23 15:24 Pulse Ox 98 07/24/23 15:24 Oxygen Delivery Method Room Air 07/24/23 15:24 BMI result Body Mass Index 41.2 PATIENT IS MORBIDLY OBESE WITH A ROUND FACE AND SHORT NECK AND NARROW OROPHARYNX Const General: comfortable, no acute distress, alert and awake Orientation/consciousness: patient oriented x3 HEENT Head: Yes normal to inspection General nose exam: No nasal polyps present and No nasal discharge present Face and sinus: Yes sinuses nontender Mouth: oropharynx normal Throat: Yes posterior oropharynx normal Eyes General: appearance normal, both eyes and all related structures Neck Neck: Yes normal visual inspection, Yes no lymphadenopathy, Yes trachea midline and Yes no JVD Thyroid: Thyroid normal Chest Chest palpation & inspection: normal inspection of the chest, normal palpation of entire chest wall and no tenderness Resp Other: PERCUSSION NOTE IS NOT WELL PERCEPTIBLE BECAUSE OF THE THICK CHEST WALL. BREATH SOUNDS ARE SLIGHTLY DISTANT BUT LUNGS ARE CLEAR WITHOUT ANY WHEEZING OR CREPITATIONS Cardio Palpation: normal PMI Rate: regular rate Rhythm: regular rhythm Heart sounds: no gallops and no murmurs GI Palpation (GI): Soft to palpation, nontender, No hepatosplenomegaly present and no masses Auscultation: normal bowel sounds Back/Spine/Pelvis Thoracic/Lumbar Spine: thoracic and lumbar spine normal to inspection and thoraco-lumbar ROM limited Skin General skin exam: no rashes or lesions noted Neuro General: patient oriented x3 and no focal motor deficits Cranial nerves: Yes CN's II-XII intact bilaterally Extrem General: Yes normal to inspection, Yes no clubbing, cyanosis or edema and Yes no calf tenderness Psych Speech and movement: Normal speech and movement present Results Reviewed Results Reviewed: Pulmonary function test on 11/07/2022, was NORMAL All values were within normal range. Assessment & Plan Assessment & Plan (1) Morbid obesity with BMI of 40.0-44.9, adult: Comment: BMI=41.2 SHE HAS BEEN MORBIDLY OBESE FOR MANY YEARS. Code(s): E66.01 - Morbid (severe) obesity due to excess calories; Z68.41 - Body mass index [BMI] 40.0-44.9, adult Plan: Trying to lose weight slowly, on her own. She knows about the diet. She has to do more exercise but claims that she gets short of breath on minimal exertion. I think this is mainly because of morbid obesity, and she needs to be recondition. (2) Obstructive sleep apnea: Comment: uses CPAP THIS PATIENT IS KNOWN TO HAVE OBSTRUCTIVE SLEEP APNEA SINCE 2020 HAS BEEN USING CPAP REGULARLY. SHE IS BEING FOLLOWED BY AND MANAGED FOR SLEEP APNEA BY HER NEUROLOGIST, DR. PRITCHETT . CLAIMS THAT SHE DOES USE THE CPAP EVERY NIGHT. Code(s): G47.33 - Obstructive sleep apnea (adult) (pediatric) Plan: I encouraged her to keep on using the CPAP. Follow-up with the Sleep Medicine Service. On regular basis (3) Allergic rhinitis: Comment: SYMPTOMS OF CHRONIC ALLERGIC RHINITIS SEEM TO BE UNDER CONTROLLED. ADVISED TO CONTINUE USING MONTELUKAST 10 MG DAILY. Code(s): J30.9 - Allergic rhinitis, unspecified Qualifiers: Allergic rhinitis trigger: unspecified Allergic rhinitis seasonality: unspecified Qualified Code(s): J30.9 - Allergic rhinitis, unspecified Plan: Continue using montelukast 10 mg daily (4) Asthma: Comment: SHE CONTINUES TO COMPLAIN OF SHORTNESS OF BREATH ON WALKING, AND SOMETIME WAKES UP AT NIGHT. PULMONARY FUNCTION TEST IS ESSENTIALLY NORMAL. I THINK SHORTNESS OF BREATH ON EXERTION IS RELATED TO HER MORBID OBESITY AND ALSO SLEEP APNEA. HOWEVER SUBJECTIVELY SHE HAS SYMPTOMS OF BRONCHIAL ASTHMA AND ALLERGIC RHINITIS. Code(s): J45.909 - Unspecified asthma, uncomplicated Qualifiers: Asthma severity: moderate Asthma persistence: persistent Asthma complication type: uncomplicated Qualified Code(s): J45.40 - Moderate persistent asthma, uncomplicated Plan: DISCUSSED WITH HER ABOUT THE MANAGEMENT OF PRESUMED BRONCHIAL ASTHMA. IT IS OKAY TO KEEP USING Qvar 80 1 INHALATION B.I.D. AND ALBUTEROL 2 PUFFS Q 4-6 HOURS ONLY P.R.N.. PRESCRIPTIONS ARE REVIEWED Coding Level of Care Code Est Pt Level 3 (51928) Diagnoses Morbid obesity with BMI of 40.0-44.9, adult E66.01; Z68.41 Obstructive sleep apnea G47.33 Allergic rhinitis, unspecified seasonality, unspecified trigger J30.9 Allergic rhinitis trigger: unspecified Allergic rhinitis seasonality: unspecified Moderate persistent asthma without complication J45.40 Asthma severity: moderate Asthma persistence: persistent Asthma complication type: uncomplicated
== END 2023-07-24 15:36 | disposition home or self-care (01) ==
PROVIDERS: PCP Internal Medicine; Visit Provider Internal Medicine
DX: E66.01 Morbid (severe) obesity due to excess calories (principal); Z68.41 Body mass index [BMI] 40.0-44.9, adult; G47.33 Obstructive sleep apnea (adult) (pediatric); J30.9 Allergic rhinitis, unspecified; J45.40 Moderate persistent asthma, uncomplicated
CPT/HCPCS: 99213

== ENCOUNTER → 2023-07-24 15:19 | Outpatient (BNVA) | payer OTHER, SELFPAY | PROVIDERS: PCP Internal Medicine; Visit Provider Internal Medicine | DX: J45.40 Moderate persistent asthma, uncomplicated (principal); J30.9 Allergic rhinitis, unspecified; G47.33 Obstructive sleep apnea (adult) (pediatric); E66.01 Morbid (severe) obesity due to excess calories; Z68.41 Body mass index [BMI] 40.0-44.9, adult | CPT/HCPCS: 99212 ==

== ENCOUNTER 2023-08-04 09:32 | Outpatient (AMB) | payer OTHER, SELFPAY ==
--- NOTE | 2023-08-04 09:39 | A.OFFVIS_ITS ---
Intake VS Expanded 08/04/23 09:48 BP 134/78 Blood Pressure Location Rt brachial Blood Pressure Position Sitting Pulse 83 Pulse Source Pulse Oximeter Temp 98.2 F Temperature Source Temporal Artery Scan Pulse Oximetry 96 Oxygen Delivery Method Room Air Height 5 ft 4 in Weight 236 lb 6.4 oz BMI 40.6 Body Fat % 47.0 Body Fat Mass 111.2 Fat Free Mass 125.2 Visceral Fat Rating 14.0 Body Water % 37.8 Body Water Mass 89.2 Muscle Mass/Score 118.8 Basal Metabolic Rate/Score 1,774 Intake Visit Reasons: MWL f/u Aerial Planting And Cultivation Manager Required: Yes Aerial Planting And Cultivation Manager Name: office cmi Allergies meclizine Adverse Reaction (Verified 08/04/23 09:42) tachycardia metoclopramide Adverse Reaction (Verified 08/04/23 09:42) tachycardia Medication List - Last Reconciled 08/04/23 by SANDOVAL Brown acetaminophen 500 mg PO Q6H PRN [ADULT PULL UPS As directed] albuterol sulfate 90 mcg/actuation (Ventolin HFA) 2 puffs inhalation QID PRN albuterol sulfate 90 mcg/actuation (Ventolin HFA) 2 puffs inhalation Q4-6H PRN 30 days alum-mag hydroxide-simeth 400-400-40 mg/5 mL (Mylanta Maximum Strength) 10 mL PO TID PRN amitriptyline 75 mg PO DAILY atorvastatin 20 mg PO BEDTIME 90 days baclofen 10 mg PO BID PRN 30 days beclomethasone dipropionate 80 mcg/actuation (Qvar RediHaler) 1 inh inhalation BID beclomethasone dipropionate 80 mcg/actuation (Qvar RediHaler) 1 inh inhalation BID 30 days benzonatate 100 mg PO TID blood sugar diagnostic (FreeStyle Lite Strips) TEST BLOOD SUGAR DIRECTED 3 TIMES A DAY budesonide 32 mcg/actuation 2 sprays intranasal DAILY PRN cane As directed cholecalciferol (vitamin D3) 50 mcg PO DAILY 90 days clonazepam 1 mg PO TID diaper,brief,adult,disposable (Depend Easy Fit Undergarments misc) As directed dicyclomine 20 mg PO BID erenumab-aooe (Aimovig Autoinjector) 140 mg subcut [id number] esomeprazole magnesium 40 mg PO DAILY [FREESTYLE LITE TEST STRIPS Test blood sugar as directed 3 times a day - E11.9 -- DIABETES] FreeStyle Lite Meter (blood-glucose meter) As directed NS gabapentin 300 mg PO BEDTIME 30 days lancets (FreeStyle Lancets) As directed- 3 times a day linaclotide (Linzess) 290 mcg PO DAILY liraglutide (Victoza 3-Shamir) 1.2 mg (0.2 mL) subcut DAILY melatonin 6 mg PO BEDTIME metformin 500 mg PO BID 90 days methylcellulose (laxative) (Fiber Therapy (methylcellulose)) 500 mg PO BID miconazole nitrate 2% (Miconazole-7) 1 appful vaginal BEDTIME 7 days miconazole nitrate 2% (Antifungal (miconazole)) 1 appl topical BID miscellaneous medical supply 1 ea miscellaneous DAILY MDD 1 per night NS montelukast 10 mg PO BEDTIME 90 days montelukast 10 mg PO DAILY 30 days ondansetron 4 mg PO TID pen needle, diabetic (Comfort EZ Pen [place]) As directed daily pioglitazone 30 mg PO DAILY 90 days propranolol 60 mg PO BID sennosides (senna) 17.2 mg (2 x 8.6 mg) PO BEDTIME PRN 90 days sertraline 100 mg PO DAILY simethicone 180 mg PO TID sucralfate (Carafate) 10 mL PO QID topiramate 100 mg PO BID tramadol 50 mg PO TID PRN 30 days triamcinolone acetonide 1 spray intranasal DAILY ubrogepant (Ubrelvy) 100 mg PO DAILY PRN ziprasidone HCl (Geodon) 80 mg PO BID HPI HPI Comments History of Present Illness Details Patient is a pleasant 47-year-old female who returns to the office today in follow-up for medical weight loss follow-up. She was initially seen on 04/02/2023 with a weight of 244.2 lb and a BMI of 41.9. Today's weight is 236.4 lb with a BMI of 40.6. She has lost 7.8 lb or 3.2% total body weight loss. She feels as though things are going slowly, She was exercising and experienced a fall while starting her treadmill, it was too fast and she fell injuring her back. This was in April and she started exercises again 6 weeks later but this has been causing back pain and she in PT. She is not going to have back surgery as she is worried about possible adverse outcome. Clearly not following the meal plan or exercise plan. She states her goal is to lose weight States HB egg w 2-3 crackers or toast w coffee, then shake, then bar, then meal w 2 handfuls of veg and 2 strips of fish or chicken. meal plan: 2 Celebrate [employer]build shakes ([facility] gift shop, [facility], [email or web address]) First shake, (2 scoops in 20 oz low fat unsweetened almond milk or water) at 730am-930am, Second shake, (2 scoops in 20 oz low fat unsweetened almond milk or water) at 1030am-1230pm 2 protein bars ([facility] protein bars a vailable at [facility] [employer], [facility], [email or web address]) at 1230pm-230pm, and 330pm-530 pm Dinner at 6pm (9 forks of protein and 9 forks of salad/vegetables). Drionking 124 oz water exercise plan: PT 3 times per week. [facility] Medical History Overactive bladder Diarrhea Morbid obesity with BMI of 40.0-44.9, adult Biliary dyskinesia Elevated TSH Obesity (BMI 30-39.9) Depression Anxiety Insomnia Obstructive sleep apnea Vitamin D deficiency 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 myelopathy or radiculopathy Elevated LFTs Allergic rhinitis Asthma Migraine Pure hypercholesterolemia Benign essential hypertension Diabetes mellitus IBS (irritable bowel syndrome) Gastroparesis Surgical History Status post epidural steroid injection History of cardiac cath Hx of tubal ligation Hx of colonoscopy (~03/2018) Hx of endoscopy History of surgery of head Hx of hysterectomy (~08/2011) Family History Father Diabetes Hypertension Heart problem Mother Arthritis Diabetes Hypertension Maternal Grandmother Breast cancer, Onset Age: 72 Family/Other Diabetes Hypertension Heart problem Social History Household Members: Spouse Housing: House Are you a primary manager critical care unit to a significant other at home: No Do you presently have visiting nurse or other home services: No Alcohol intake: current Alcohol intake frequency: does not drink Comment: NOT INDICATED Patient Tobacco Use Status: Never used Tobacco e-Cigarette/Vaping Use: Never Used Second Hand Smoke Exposure: No Advance Directives Date on File: 03/20/16 service: No Current occupational status: disabled Cognitive needs: No Hearing needs: No Vision needs: Yes Female Reproductive History Menstrual Age of Menarche: 13 Physical Exam Vital Signs: Last Vital Signs Temp 98.2 F 08/04/23 09:48 Pulse 83 08/04/23 09:48 BP 134/78 08/04/23 09:48 Pulse Ox 96 08/04/23 09:48 Oxygen Delivery Method Room Air 08/04/23 09:48 BMI result Body Mass Index 40.6 Const General: healthy appearing and no acute distress Resp Effort & Inspection: normal respiratory effort Auscultation: clear to auscultation bilaterally Cardio Rate: regular rate Rhythm: regular rhythm GI Auscultation: normal bowel sounds Extrem General: Yes normal to inspection Assessment & Plan Assessment & Plan (1) Morbid obesity: Code(s): E66.01 - Morbid (severe) obesity due to excess calories Plan: Encouraged to follow the meal plan. Encouraged to text me with any problems or questions as we can change the meal plan to her liking. Encouraged to utilize recumbent bike or walking in the shallow end of the pool. Given discount paper for [employer]. Return to clinic in 5 weeks' time. Coding Level of Care Code Est Pt Level 3 (06201) Diagnoses Morbid obesity E66.01
[2023-08-04 09:48] VITALS: BP 134/78; PULSE 83; TEMP 36.8; O2SAT 96; BMI 40.6
== END 2023-08-04 10:17 | disposition home or self-care (01) ==
PROVIDERS: PCP Internal Medicine; Visit Provider Physician Assistant Surgical
DX: E66.01 Morbid (severe) obesity due to excess calories (principal); Z68.41 Body mass index [BMI] 40.0-44.9, adult
CPT/HCPCS: 99213

== ENCOUNTER → 2023-08-04 09:32 | Outpatient (BNVA) | payer OTHER, SELFPAY | PROVIDERS: PCP Internal Medicine; Visit Provider Physician Assistant Surgical | DX: E66.01 Morbid (severe) obesity due to excess calories (principal); Z68.41 Body mass index [BMI] 40.0-44.9, adult | CPT/HCPCS: 99212 ==

== ENCOUNTER 2023-08-25 11:29 | Outpatient (REF) | payer OTHER, SELFPAY | END 2023-08-25 11:30 | disposition home or self-care (01) | LOC: HO.MAMMO 11:29 | PROVIDERS: PCP Internal Medicine; Visit Provider Internal Medicine | DX: Z12.31 Encounter for screening mammogram for malignant neoplasm of breast (principal) | CPT/HCPCS: 77063; 77067 ==

== ENCOUNTER → 2023-08-25 11:30 | Outpatient (BNV) | payer OTHER, SELFPAY | PROVIDERS: PCP Internal Medicine; Visit Provider Radiology Diagnostic Radiology | DX: Z12.31 Encounter for screening mammogram for malignant neoplasm of breast (principal) | CPT/HCPCS: 77063; 77067 ==

== ENCOUNTER → 2023-08-28 08:10 | Outpatient (BNV) | payer OTHER, SELFPAY | PROVIDERS: PCP Internal Medicine; Referring Provider Internal Medicine; Visit Provider Internal Medicine Medical Oncology | DX: R79.89 Other specified abnormal findings of blood chemistry (principal) | CPT/HCPCS: 99204; 99213 ==

== ENCOUNTER 2023-09-17 09:17 | Outpatient (REF) | payer OTHER, SELFPAY ==
--- NOTE | ~2023-09-17 | US_ITS ---
EXAMINATION: US ABDOMEN COMPLETE CLINICAL INFORMATION: To detect liver disease. COMPARISON: Ultrasound abdomen complete with liver elastography 01/21/2023. X-ray abdomen KUB 01/10/2023. CT enterography abdomen and pelvis with contrast 08/14/2021. MR abdomen with and without contrast 12/14/2020. X-ray abdomen 10/31/2020. Ultrasound abdomen complete 10/26/2020. TECHNIQUE: Real-time imaging of the abdominal viscera. Technically limited study secondary to body habitus and patient's inability to hold breath. FINDINGS: PANCREAS: Visualized portions of the pancreatic head and body are unremarkable. Distal portions of the pancreatic body and pancreatic tail are not clearly visualized due to overlying bowel gas and therefore cannot be evaluated. ABDOMINAL AORTA: The proximal, mid, and distal segments are normal in caliber. INFERIOR VENA CAVA: Visualized portions are normal. LIVER: The liver is normal in size. The liver contour is normal. Diffusely increased liver echogenicity. No focal hepatic lesion. There is no intrahepatic biliary duct dilatation seen. GALLBLADDER: The gallbladder is physiologically distended. There is a 5 mm echogenic nonshadowing focus contiguous with the gallbladder wall, most consistent with a small polyp, stable. No definitive shadowing gallstones identified. No gallbladder wall thickening or pericholecystic fluid appreciated. Loader Technician does however report a positive sonographic Esquivel's sign. COMMON BILE DUCT: Normal in caliber measuring 0.4 cm in diameter. RIGHT KIDNEY: Normal. No hydronephrosis. No renal calculi or focal parenchymal lesions. The kidney measures 12.8 cm in maximum dimension. LEFT KIDNEY: The kidney measures 13.0 cm in maximum dimension. Again demonstrated is a complex appearing midpole cyst which measures approximately 5.7 x 5.4 x 5.2 cm, previously 5.7 x 5.6 x 5.9 cm). This cyst demonstrates septations and calcifications. SPLEEN: Normal. The spleen measures 11.5 cm in maximum dimension. FREE FLUID: None. US/US abdomen complete IMPRESSION: 1. Diffusely increased liver echogenicity. This is a nonspecific finding but most suggestive of hepatic steatosis. Correlation with liver enzymes recommended. 2. Stable 5 mm gallbladder polyp. 3. Stable complex appearing left renal cyst.
== END 2023-09-17 09:18 | disposition home or self-care (01) ==
LOC: HO.US 09:17
PROVIDERS: PCP Internal Medicine; Visit Provider Internal Medicine Medical Oncology
DX: K76.9 Liver disease, unspecified (principal)
CPT/HCPCS: 76700

== ENCOUNTER 2023-11-13 10:47 | Outpatient (REF) | payer OTHER, SELFPAY ==
[2023-11-14 09:27] LABS: Bacterial Vaginosis PCR NEGATIVE (Negative); Candida Group PCR DETECTED (Not Detect); Candida glab krusei PCR NOT DETECTED (Not Detect); Trichomonas vaginalis PCR NOT DETECTED (Not Detect)
== END 2023-11-13 10:48 | disposition home or self-care (01) ==
LOC: HO.LAB 10:47
PROVIDERS: PCP Internal Medicine; Visit Provider Advanced Practice Midwife
DX: Z01.419 Encounter for gynecological examination (general) (routine) without abnormal findings (principal); Z20.2 Contact with and (suspected) exposure to infections with a predominantly sexual mode of transmission; Z90.710 Acquired absence of both cervix and uterus
CPT/HCPCS: 0352U; 99396

== ENCOUNTER 2023-11-13 10:47 | Outpatient (AMB) | payer OTHER, SELFPAY ==
--- NOTE | 2023-11-13 10:57 | A.OFFVIS_ITS ---
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 Information Interpreted: clinical only Food Concession Manager: Food Concession Manager Present Allergies meclizine Adverse Reaction (Verified 11/13/23 11:05) tachycardia metoclopramide Adverse Reaction (Verified 11/13/23 11:05) tachycardia Medication List - Last Reconciled 11/13/23 by Chelsey Hamilton CNM acetaminophen 500 mg PO Q6H PRN [ADULT PULL UPS As directed] albuterol sulfate 90 mcg/actuation (Ventolin HFA) 2 puffs inhalation QID PRN alum-mag hydroxide-simeth 400-400-40 mg/5 mL (Mylanta Maximum Strength) 10 mL PO TID PRN amitriptyline 75 mg PO DAILY atorvastatin 20 mg PO BEDTIME 90 days baclofen 10 mg PO BID PRN beclomethasone dipropionate 80 mcg/actuation (Qvar RediHaler) 1 inh inhalation BID 30 days blood sugar diagnostic (FreeStyle Lite Strips) TEST BLOOD SUGAR DIRECTED 3 TIMES A DAY budesonide 32 mcg/actuation 2 sprays intranasal DAILY PRN cane As directed cholecalciferol (vitamin D3) 50 mcg PO DAILY 90 days clonazepam 1 mg PO TID diaper,brief,adult,disposable (Depend Easy Fit Undergarments [facility] [place] As directed erenumab-aooe (Aimovig Autoinjector) 140 mg subcut [id number] esomeprazole magnesium 40 mg PO DAILY [FREESTYLE LITE TEST STRIPS Test blood sugar as directed 3 times a day - E11.9 -- DIABETES] FreeStyle Lite Meter (blood-glucose meter) As directed NS gabapentin 300 mg PO BEDTIME 30 days lancets (FreeStyle Lancets) As directed- 3 times a day linaclotide (Linzess) 290 mcg PO DAILY liraglutide (Victoza 3-Shamir) 1.2 mg (0.2 mL) subcut DAILY melatonin 6 mg PO BEDTIME metformin 500 mg PO BID 90 days methylcellulose (laxative) (Fiber Therapy (methylcellulose)) 500 mg PO BID montelukast 10 mg PO BEDTIME 90 days ondansetron 4 mg sublingual TID pen needle, diabetic (Comfort EZ Pen Hartley) As directed daily pioglitazone 30 mg PO DAILY 90 days propranolol 60 mg PO BID sennosides (senna) 17.2 mg (2 x 8.6 mg) PO BEDTIME PRN sertraline 100 mg PO DAILY simethicone 180 mg PO TID topiramate 100 mg PO BID tramadol 50 mg PO TID PRN 30 days triamcinolone acetonide 1 spray intranasal DAILY ubrogepant (Ubrelvy) 100 mg PO DAILY PRN ziprasidone HCl (Geodon) 80 mg PO BID Is last menstrual period known: Yes Last menstrual period: 09/03/23 Do you need a note to return to daycare/school/sports/work: No HPI 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 She tells me that she had a hysterectomy fiber 6 years ago at [facility] but they could not take out her whole uterus because it was too close to her ovaries. But she says she was getting regular periods after that she interpreted this m issed menses as I am starting to miss my periods ?. At the very end of the visit the patient produced a tiny slip of paper that she carries in her purse that said [address] Heraclio Barger. FOR[facility]LY [facility], [facility]1983 Medical History Overactive bladder Diarrhea Morbid obesity with BMI of 40.0-44.9, adult Biliary dyskinesia Elevated TSH Obesity (BMI 30-39.9) Depression Anxiety Insomnia Obstructive sleep apnea Vitamin D deficiency 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 myelopathy or radiculopathy Elevated LFTs Allergic rhinitis Asthma Migraine Pure hypercholesterolemia Benign essential hypertension Diabetes mellitus IBS (irritable bowel syndrome) Gastroparesis Surgical History (Updated 11/13/23 @ 12:11 by Chelsey Hamilton CNM) Status post epidural steroid injection History of cardiac cath Hx of tubal ligation Hx of colonoscopy (~03/2018) Hx of endoscopy History of surgery of head Hx of hysterectomy (~08/2011) Family History Father Diabetes Hypertension Heart problem Mother Arthritis Diabetes Hypertension Maternal Grandmother Breast cancer, Onset Age: 72 Family/Other Diabetes Hypertension Heart problem Social History Household Members: Spouse Housing: House Are you a primary healthcare receptionist to a significant other at home: No Do you presently have visiting nurse or other home services: No Alcohol intake: current Alcohol intake frequency: does not drink Comment: NOT INDICATED Patient Tobacco Use Status: Never used Tobacco e-Cigarette/Vaping Use: Never Used Second Hand Smoke Exposure: No Advance Directives Date on File: 03/20/16 service: No Current occupational status: disabled Cognitive needs: No Hearing needs: No Vision needs: Yes Female Reproductive History Menstrual Age of Menarche: 13 Duration of menses: <3 days Date of last menstrual period: 09/03/23 control method: permanent sterilization Total pregnancies: 1 Full term: 1 Date of last pap smear: 10/24/22 (negative,previous 2006) History of abnormal pap smear: No Date of Mammogram: 08/25/23 (negativre) History of abnormal mammogram: No Physical Exam Vital Signs: Last Vital Signs BP 118/70 11/13/23 11:03 BMI result Body Mass Index 41.5 Const General: healthy appearing, comfortable, no acute distress, well developed and alert Nutritional Appearance: average body habitus Orientation/consciousness: patient oriented x3 Limitations: no limitations HEENT Head: Yes normocephalic Neck Neck: Yes normal visual inspection Thyroid: Thyroid normal Chest Chest palpation & inspection: normal inspection of the chest Breast/axilla inspection: normal inspection of the breasts and normal inspection of the axillae Breast/axilla palpation: normal palpation of the breasts and normal palpation of the axillae Resp Effort & Inspection: normal respiratory effort GI Inspection: Yes normal to inspection, No Abdominal wall edema and No distended Palpation (GI): Soft to palpation and nontender Other: Patient vagina pink and moist with curdy whitish greenish discharge with slight pink tinge. Multiparous cervix clearly visible at apex of vagina unable to palpate uterus secondary to adipose tissue. Nontender. Good tone with Kegel. We need to obtain records of suppose a partial hysterectomy and a will obtain ultrasound to see what is structures are present as well. General: Yes bladder normal to palpation External Female Exam: normal external appearance and normal appearance of the urethra Speculum Exam - Vagina: normal appearance of the vagina, normal palpation and normal vaginal discharge Speculum Exam - Cervix: normal appearance of the cervix, normal palpation and nontender Bimanual exam- vagina & uterus: normal bimanual exam, normal palpation, bladder normal to palpation, consistency normal, normal palpation, No Cervical tenderness present, non-tender and no cervical motion tenderness Bimanual Exam- Adnexa, other: normal adnexae, no masses, normal and No adnexal tenderness Neuro General: patient oriented x3 Assessment & Plan Assessment & Plan (1) Morbid obesity: Code(s): E66.01 - Morbid (severe) obesity due to excess calories Category: Medical (2) Encounter for gynecological examination with Papanicolaou smear of cervix: Comment: 10/24/2022 Pap is negative with negative HPV, and fungal organisms. Code(s): Z01.419 - Encounter for gynecological examination (general) (routine) without abnormal findings Category: Medical (3) Morbid obesity with BMI of 40.0-44.9, adult: Comment: BMI=41.2 SHE HAS BEEN MORBIDLY OBESE FOR MANY YEARS. Code(s): E66.01 - Morbid (severe) obesity due to excess calories; Z68.41 - Body mass index [BMI] 40.0-44.9, adult Category: Medical (4) Diabetes mellitus: Comment: taking Victoza, Metformin & Actos Code(s): E11.9 - Type 2 diabetes mellitus without complications Category: Medical Qualifiers: Diabetes mellitus type: type 2 Diabetes mellitus alf insulin use: without alf use Diabetes mellitus complication status: without complication Qualified Code(s): E11.9 - Type 2 diabetes mellitus without complications (5) Hx of hysterectomy: Onset Date: ~08/2011 Comment: 2011-partial due to [place]ometrorrhagia ([facility] [place] unable to view any records pertaining to this on 11/13/2023 to clarify the patient's history will request records as patient says hysterectomy was done [facility] or [facility], patient cites continued menses up until the last month which would be in conflict with a history of a hysterectomy. Code(s): Z90.710 - Acquired absence of both cervix and uterus Category: Surgical Plan Patient is up-to-date with her Pap smear and mammograms. Patient cites having regular periods after having hysterectomy until recently when she missed a period she says records are in our system I tried in vein to locate records today and had no access to historical visits or charge and there were none copied under summary or activity either. Will have patient sign for records of her hysterectomy she says 1st that she had it at [facility] and then she said that she had it at [facility]. Patient to sign for what ever institution is the correct 1. Reviewed the yeast that it has a very common finding and the yeast feeds on elevated blood sugars she said her blood sugar was good today at 01:29 but the other day it was over 200 discussed that this is a common scenario with diabetes. Since that she says this is her 1st time with 1 I will order Monistat cream that she can use now and some refills for future use as well.. The fungal rash she had under pannus is much improved and not really present today. In addition I am ordering a pelvic ultrasound to ascertain what organs are present and we will have a visit after that and further explore her history when we have more data. Orders: Orders US pelvic and transvaginal Today Z90.710 - Acquired absence of both cervix and uterus Bacterial Vaginosis Panel Today Z20.2 - Contact with and (suspected) exposure to infections with a predominantly sexual mode of transmission Medications: New miconazole nitrate 2% (Miconazole-7) Use p.r.n. 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
[2023-11-13 11:03] VITALS: BP 118/70; BMI 41.5
== END 2023-11-13 13:11 | disposition home or self-care (01) ==
LOC: HO.HWSM 10:47
PROVIDERS: PCP Internal Medicine; Visit Provider Advanced Practice Midwife
DX: Z01.419 Encounter for gynecological examination (general) (routine) without abnormal findings (principal); E66.01 Morbid (severe) obesity due to excess calories; Z68.41 Body mass index [BMI] 40.0-44.9, adult; E11.9 Type 2 diabetes mellitus without complications; Z90.710 Acquired absence of both cervix and uterus
CPT/HCPCS: 99396

== ENCOUNTER 2023-11-17 10:02 | Outpatient (REF) | payer OTHER, SELFPAY ==
[2023-11-17 13:27] LABS: Appearance Urine Cloudy; Color Urine Yellow; Glucose Urine UA Negative (Negative); Leukocyte Esterase Urine Negative (Negative); Nitrite Urine Negative (Negative); PH >= 9.0 (5.0-9.0); Urine Blood Negative (Negative); Urine Ketones Negative (Negative); Urine Protein Negative (Neg-Trace)
[2023-11-17 13:38] LABS: Basophils Percent Auto 0.5 % (0-2); Eosinophils Absolute Auto 0.1 X10*3/uL (0.0-0.4); Eosinophils Percent Auto 1.4 % (0-4); Hematocrit 38.3 % (37.0-47.0); Hemoglobin 12.3 g/dl (12.0-16.0); Imm Gran Abs Auto 0.04 X10*3/uL (0.00-0.03); Imm Gran Pct Auto 0.5 % (0.0-0.4); Lymphocytes Absolute Auto 2.4 X10*3/uL (1.2-4.9); Lymphocytes Percent Auto 27.9 % (20-40); MANUAL DIFF FLAG NO; Mean Corpuscular HGB Conc 32.1 g/dl (31.0-35.0); Mean Corpuscular Hemoglobin 30.5 pg (27.0-33.0); Mean Platelet Volume 11.1 fL (9.4-12.3); Monocytes Absolute Auto 0.7 X10*3/uL (0.1-1.2); Monocytes Percent Auto 7.8 % (2-11); Neutrophils Absolute Auto 5.3 x10*3/uL (2.0-8.3); Neutrophils Percent Auto 61.9 % (45-73); Platelet Count 283 X10*3/uL (160-400); Red Blood Count 4.03 X10*6/uL (4.20-5.50); Red Cell Distribution Width 12.6 % (11.0-16.0); White Blood Count 8.5 X10*3/uL (4.8-10.8)
[2023-11-17 13:49] LABS: Estimated Average Glucose 166 mg/dL; Hemoglobin A1c % 7.4 % (<6.0)
[2023-11-17 13:56] LABS: Alanine Aminotransferase 16 U/L (0-31); Albumin Level 3.9 g/dL (3.5-5.0); Alkaline Phosphatase 99 U/L (39-117); Anion Gap 13 (12-20); Aspartate Amino Transferase 19 U/L (5-31); Bilirubin Total 0.2 mg/dL (0.0-1.0); Blood Urea Nitrogen 9 mg/dL (9-16); Calcium 10.1 mg/dL (8.4-10.2); Carbon Dioxide 22 mmol/L (22-29); Chloride 109 mmol/L (96-108); Cholesterol 140 mg/dL (<200); Estimated Glomerular Filt Rate > 60; Glucose Fasting 112 mg/dL (60-99); HDL Cholesterol 48 mg/dL (>40); LDL Cholesterol Calculated 58 mg/dL (<100); Sodium 140 mmol/L (135-145); Triglycerides 170 mg/dL (<150)
[2023-11-17 14:12] LABS: TSH reflex Free T4 3.22 uIU/mL (0.32-4.0); Vitamin D 25-OH Total 50.4 ng/mL (>30)
[2023-11-17 14:19] LABS: Folate 9.5 ng/mL (> or = 4.0); Vitamin B12 592 pg/mL (200-900)
[2023-11-17 14:35] LABS: Creatinine Urine 38.18 mg/dL; Microalbumin Urine < 5.0 mg/L
== END 2023-11-17 10:03 | disposition home or self-care (01) ==
LOC: HO.HMGCLDS 10:02
PROVIDERS: PCP Internal Medicine; Visit Provider Internal Medicine
DX: E55.9 Vitamin D deficiency, unspecified (principal); E53.8 Deficiency of other specified B group vitamins; E78.00 Pure hypercholesterolemia, unspecified; E11.9 Type 2 diabetes mellitus without complications; D64.9 Anemia, unspecified; R30.0 Dysuria
CPT/HCPCS: 36415; 80053; 80061; 81003; 82043; 82306; 82570; 82607; 82746; 83036; 84443; 85025

== ENCOUNTER 2023-11-18 14:20 | Outpatient (REF) | payer OTHER, SELFPAY ==
--- NOTE | ~2023-11-18 | US_ITS ---
EXAMINATION: US PELVIS CLINICAL INFORMATION: Prior hysterectomy in 2012. COMPARISON: None available. TECHNIQUE: Ultrasound of the pelvis is performed using both transabdominal and transvaginal transducers along with Doppler. Transvaginal imaging is performed due to inadequate visualization transabdominally. FINDINGS: Uterus: The uterus is surgically absent. A nabothian cyst is seen within the cervix. Adnexa: Both ovaries are visualized. There is normal color flow to the adnexa. There is no ovarian torsion. There is no pelvic ascites or fluid collection. Right ovary measures 3.2 x 2.1 x 3.0 cm, volume 10.2 mL. The right ovary contains a 1.3 cm dominant physiologic follicle. This requires no imaging follow-up. Left ovary measures 3.0 x 1.8 x 2.0 cm, volume 5.7 mL. US/US pelvic and transvaginal IMPRESSION: A Nabothian cyst is seen within the cervix. The examination is otherwise unremarkable.
== END 2023-11-18 14:21 | disposition home or self-care (01) ==
LOC: HO.US 14:20
PROVIDERS: PCP Internal Medicine; Visit Provider Advanced Practice Midwife
DX: Z90.710 Acquired absence of both cervix and uterus (principal)
CPT/HCPCS: 76830; 76856

== ENCOUNTER 2024-01-09 13:25 | Outpatient (AMB) | payer OTHER, SELFPAY ==
[2024-01-09 13:31] VITALS: BP 112/68; BMI 41.2
--- NOTE | 2024-01-09 13:31 | A.OFFVIS_ITS ---
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 Pricing Services: Manager Pricing Present Information Interpreted: clinical only Certified Welder: Certified Welder Present Allergies meclizine Adverse Reaction (Verified 01/09/24 13:32) tachycardia metoclopramide Adverse Reaction (Verified 01/09/24 13:32) tachycardia Is last menstrual period known: Yes Last menstrual period: 12/08/23 Do you need a note to return to daycare/school/sports/work: No HPI HPI Ultrasound follow up: Details: Review her pelvic ultrasound done to establish what was taken out in her suppose it hysterectomy in 2011 in either [facility] or [facility]. Additionally she was to sign for records of the surgery for us to review there are no records here and no record of having signed for them however she says she went to the hospital in sign for records there. [facility] Medical History Overactive bladder Diarrhea Morbid obesity with BMI of 40.0-44.9, adult Biliary dyskinesia Elevated TSH Obesity (BMI 30-39.9) Depression Anxiety Insomnia Obstructive sleep apnea Vitamin D deficiency 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 myelopathy or radiculopathy Elevated LFTs Allergic rhinitis Asthma Migraine Pure hypercholesterolemia Benign essential hypertension Diabetes mellitus IBS (irritable bowel syndrome) Gastroparesis Surgical History (Updated 01/09/24 @ 14:40 by Chelsey Hamilton CNM) Status post epidural steroid injection History of cardiac cath Hx of tubal ligation Hx of colonoscopy (~03/2018) Hx of endoscopy History of surgery of head Hx of hysterectomy (~08/2011) Family History Father Diabetes Hypertension Heart problem Mother Arthritis Diabetes Hypertension Maternal Grandmother Breast cancer, Onset Age: 72 Family/Other Diabetes Hypertension Heart problem Social History Household Members: Spouse Housing: House Are you a primary transitional care liaison to a significant other at home: No Do you presently have visiting nurse or other home services: No Alcohol intake: current Alcohol intake frequency: does not drink Comment: NOT INDICATED Patient Tobacco Use Status: Never used Tobacco e-Cigarette/Vaping Use: Never Used Second Hand Smoke Exposure: No Advance Directives Date on File: 03/20/16 service: No Current occupational status: disabled Cognitive needs: No Hearing needs: No Vision needs: Yes Female Reproductive History Menstrual Age of Menarche: 13 Date of last menstrual period: 12/08/23 control method: permanent sterilization Total pregnancies: 1 Full term: 1 Date of last pap smear: 10/24/22 (neg.) History of abnormal pap smear: Yes (unsure date) Results Reviewed Results Reviewed: Patient: Ute Goldberg MR#: [id number] : 1975 Acct:[id number] Age/Sex: 47 / F ADM Date: 11/18/23 Loc: .[place] Attending Dr: Chelsey Hamilton CNM Ordering Physician: Chelsey Hamilton CNM Date of Service: 11/18/23 Procedure(s): US pelvic and transvaginal Accession Number(s): [id number] cc: Villa Lr MD; Chelsey Hamilton CNM~ EXAMINATION: US PELVIS CLINICAL INFORMATION: Prior hysterectomy in 2011. COMPARISON: None available. TECHNIQUE: Ultrasound of the pelvis is performed using both transabdominal and transvaginal transducers along with Doppler. Transvaginal imaging is performed due to inadequate visualization transabdominally. FINDINGS: Uterus: The uterus is surgically absent. A nabothian cyst is seen within the cervix. Adnexa: Both ovaries are visualized. There is normal color flow to the adnexa. There is no ovarian torsion. There is no pelvic ascites or fluid collection. Right ovary measures 3.2 x 2.1 x 3.0 cm, volume 10.2 mL. The right ovary contains a 1.3 cm dominant physiologic follicle. This requires no imaging follow-up. Left ovary measures 3.0 x 1.8 x 2.0 cm, volume 5.7 mL. US/US pelvic and transvaginal IMPRESSION: A Nabothian cyst is seen within the cervix. The examination is otherwise unremarkable. Dictated By: Jaime Eagle MD Signed By: <Electronically signed by Jaime Eagle MD in OV> 12/08/23 1313 DD/ 1504 TD/TT: Educational/Development Assistant: REBA Records eventually found in historical visits indicating supra cervical hysterectomy 09/26/[address] Natasha garza and Dr. Gian Khalil and Dr. Blair Madera assisted. Additionally at the cultures at the last visit the only thing that was found was Lesly however she had no symptoms but because of miscommunication with the translation she was prescribed a cream and told to take it (presence of symptoms did not seem to have been translated) she states she had no symptoms but because she was prescribed the cream she endeavor to take it however the original prescription of Monistat was not covered by her insurance and so replacement prescription of terconazole had be sent and she use that. She does not have any symptoms and she did not have any symptoms she says her diabetes is well- controlled. Given this I gave full teaching about yeast today and wrote down for her where to buy that she is Monistat [id number] equivalent which in this area is [employer] and use it wished she needs it if she gets if severe yeast infection if her sugars are high she should call her primary doctor. Assessment & Plan Assessment & Plan (1) Hx of hysterectomy: Onset Date: ~08/2011 Comment: 2011-partial due to [place]ometror[place] [place] unable to view any records pertaining to this on 11/13/2023 to clarify the patient's history will request records as patient says hysterectomy was done [facility] or [facility], patient cites continued menses up until the last month which would be in conflict with a history of a hysterectomy. 01/09/2024 PLEASE SEE NOTE RECORDS FOUND IN THE SYSTEM OF SUPER CERVICAL HYSTERECTOMY 09/26/2011, NOT DONE WITH THE SURGEON OR PLACE SHE MENTIONED. Code(s): Z90.710 - Acquired absence of both cervix and uterus Category: Medical Plan I reviewed the ultrasound with her patient states now that what she calls a period. Is actually a little smear of pink discharge when she wipes just for 1 or 2 days and is not a full period. Discussed that it is still would be useful to obtain the records just for clarity sake but that I will also call the ultrasound department and request that the radiologist provided description of the measurement of the cervix and cervical tissue that is left. ( call was placed request has been made). If there is just a little bit of endometrial tissue left at the top of the cervix that possibly could explain a pink discharge on a monthly basis that 1 could say is a ?period but it is certainly not complete period, but could be in keeping with her experience and memory.. She then again showed me the her little scrap of paper with her list of procedures and on it she has written [address] radha nunn, She again stated that surgery had been done at either [facility] or [facility] but some Hospital in [place] but she did not remember which 1. when she went to the lead front desk agent to again sign for records of the surgery, she NOW stated to the insurance office manager that the surgery was done at [facility]. The name of the surgeon that she provided was certainly not an concrete handler at this institution at that time.. So there was conflicting data yet again. She now states that she missed remembered and the surgery was done at [facility] so I went back in to the historical visits to see if she had had any surgical procedure done in 2012 that I could a line with the hysterectomy and discover who had done it records were discovered using this new information of a 2012 hysterectomy done 09/26/[address] Natasha garza, assisted by Dr. Gian Khalil, And Dr. Damian Madera. Because of the multiple fibroids and other complications a supracervical hysterectomy was done. Records eventually found in historical visits indicating supra cervical hysterectomy 09/26/[address] Natasha garza and Dr. Gian Khalil and Dr. Blair Madera assisted. Additionally at the cultures at the last visit the only thing that was found was Lesly however she had no symptoms but because of miscommunication with the translation she was prescribed a cream and told to take it (presence of symptoms did not seem to have been translated) she states she had no symptoms but because she was prescribed the cream she endeavor to take it however the original prescription of Monistat was not covered by her insurance and so replacement prescription of terconazole had be sent and she use that. She does not have any symptoms and she did not have any symptoms she says her diabetes is well- controlled. Given this I gave full teaching about yeast today and wrote down for her where to buy that she is Monistat [id number] equivalent which in this area is [employer] and use it wished she needs it if she gets if severe yeast infection if her sugars are high she should call her primary doctor. Coding Level of Care Code Est Pt Level 3 (15069) Diagnoses Hx of hysterectomy Z90.710
== END 2024-01-09 14:30 | disposition home or self-care (01) ==
LOC: HO.HWSM 13:25
PROVIDERS: PCP Internal Medicine; Visit Provider Advanced Practice Midwife
DX: Z90.710 Acquired absence of both cervix and uterus (principal)
CPT/HCPCS: 99213

== ENCOUNTER → 2024-01-09 13:25 | Outpatient (BNVA) | payer OTHER, SELFPAY | PROVIDERS: PCP Internal Medicine; Visit Provider Advanced Practice Midwife | DX: Z90.710 Acquired absence of both cervix and uterus (principal) | CPT/HCPCS: 99212 ==

== ENCOUNTER 2024-01-22 09:23 | Outpatient (REF) | payer OTHER, SELFPAY ==
[2024-01-22 13:08] LABS: MANUAL DIFF FLAG NO
[2024-01-22 13:24] LABS: Basophils Percent Auto 0.4 % (0-2); Eosinophils Absolute Auto 0.2 X10*3/uL (0.0-0.4); Eosinophils Percent Auto 1.9 % (0-4); Hematocrit 39.5 % (37.0-47.0); Hemoglobin 12.5 g/dl (12.0-16.0); Imm Gran Pct Auto 1.3 % (0.0-0.4); Lymphocytes Percent Auto 25.7 % (20-40); Mean Corpuscular HGB Conc 31.6 g/dl (31.0-35.0); Mean Corpuscular Hemoglobin 29.7 pg (27.0-33.0); Mean Corpuscular Volume 93.8 fL (80.0-98.0); Mean Platelet Volume 11.3 fL (9.4-12.3); Monocytes Absolute Auto 0.5 X10*3/uL (0.1-1.2); Monocytes Percent Auto 6.7 % (2-11); Neutrophils Absolute Auto 5.1 x10*3/uL (2.0-8.3); Platelet Count 286 X10*3/uL (160-400); Red Blood Count 4.21 X10*6/uL (4.20-5.50); Red Cell Distribution Width 13.3 % (11.0-16.0); White Blood Count 7.9 X10*3/uL (4.8-10.8)
[2024-01-22 13:36] LABS: Alanine Aminotransferase 11 U/L (0-31); Albumin Level 4.2 g/dL (3.5-5.0); Alkaline Phosphatase 102 U/L (39-117); Anion Gap 15 (12-20); Aspartate Amino Transferase 13 U/L (5-31); Bilirubin Total 0.2 mg/dL (0.0-1.0); Blood Urea Nitrogen 9 mg/dL (9-16); Calcium 10.1 mg/dL (8.4-10.2); Carbon Dioxide 19 mmol/L (22-29); Chloride 109 mmol/L (96-108); Estimated Glomerular Filt Rate > 60; Glucose Random 134 mg/dL (60-115); Potassium 3.8 mmol/L (3.3-5.1); Sodium 139 mmol/L (135-145); Total Protein 7.3 g/dL (6.5-8.0)
[2024-01-22 13:40] LABS: Appearance Urine Clear; Color Urine Yellow; Glucose Urine UA Negative (Negative); Leukocyte Esterase Urine Negative (Negative); Nitrite Urine Negative (Negative); Specific Gravity - Urine <= 1.005 (1.005-1.025); Urine Blood Negative (Negative); Urine Ketones Negative (Negative); Urine Protein Negative (Neg-Trace)
[2024-01-22 14:00] LABS: Vitamin B12 634 pg/mL (200-900)
== END 2024-01-22 09:24 | disposition home or self-care (01) ==
LOC: HO.HMGCLDS 09:23
PROVIDERS: PCP Internal Medicine; Referring Provider Internal Medicine Medical Oncology; Visit Provider Internal Medicine
DX: R74.8 Abnormal levels of other serum enzymes (principal); R30.0 Dysuria
CPT/HCPCS: 36415; 80053; 81003; 82607; 82746; 85025

== ENCOUNTER 2024-01-23 13:41 | Outpatient (AMB) | payer OTHER, SELFPAY ==
--- NOTE | 2024-01-23 13:51 | A.OFFPC_ITS ---
Vital Signs 01/23/24 14:03 Height 5 ft 4 in Weight 238 lb 6 oz BMI 40.9 BP 108/72 Blood Pressure Location Lt brachial Position Sitting Pulse 86 Pulse Source Pulse Oximeter Pulse Oximetry (%) 99 Oxygen Delivery Method Room Air Intake Visit Reasons: Follow Up Intake Note: Patient is here today for a physical. Rn Sane Required: No Accompanied by: Spouse Allergies meclizine Adverse Reaction (Verified 01/23/24 14:24) tachycardia metoclopramide Adverse Reaction (Verified 01/23/24 14:24) tachycardia Medication List - Last Reconciled 01/23/24 by Villa Lr MD acetaminophen 500 mg PO Q6H PRN [ADULT PULL UPS As directed] albuterol sulfate 90 mcg/actuation (Ventolin HFA) 2 puffs inhalation QID PRN alum-mag hydroxide-simeth 400-400-40 mg/5 mL (Mylanta Maximum Strength) 10 mL PO TID PRN amitriptyline 75 mg PO DAILY atorvastatin 20 mg PO BEDTIME 90 days baclofen 10 mg PO BID PRN beclomethasone dipropionate 80 mcg/actuation (Qvar RediHaler) 1 inh inhalation BID 30 days blood sugar diagnostic (FreeStyle Lite Strips) TEST BLOOD SUGAR DIRECTED 3 TIMES A DAY budesonide 32 mcg/actuation 2 sprays intranasal DAILY PRN cane As directed cholecalciferol (vitamin D3) 50 mcg PO DAILY 90 days clonazepam 1 mg PO TID diaper,brief,adult,disposable (Depend Easy Fit Undergarments [facility] As directed erenumab-aooe (Aimovig Autoinjector) 140 mg subcut [id number] esomeprazole magnesium 40 mg PO DAILY [FREESTYLE LITE TEST STRIPS Test blood sugar as directed 3 times a day - E11.9 -- DIABETES] FreeStyle Lite Meter (blood-glucose meter) As directed NS gabapentin 300 mg PO BEDTIME lancets (FreeStyle Lancets) As directed- 3 times a day linaclotide (Linzess) 290 mcg PO QAM liraglutide (Victoza 3-Shamir) 1.2 mg (0.2 mL) subcut DAILY melatonin 6 mg PO BEDTIME metformin 500 mg PO BID 90 days methylcellulose (laxative) (Fiber Therapy (methylcellulose)) 500 mg PO BID montelukast 10 mg PO BEDTIME 90 days ondansetron 4 mg sublingual TID pen needle, diabetic (Comfort EZ Pen [place]) As directed daily pioglitazone 30 mg PO DAILY 90 days propranolol 60 mg PO BID sennosides (senna) 17.2 mg (2 x 8.6 mg) PO BEDTIME PRN sertraline 100 mg PO DAILY simethicone 180 mg PO TID terconazole 0.8% 1 appful vaginal BEDTIME 3 days topiramate 100 mg PO BID tramadol 50 mg PO TID PRN 30 days triamcinolone acetonide 1 spray intranasal DAILY ubrogepant (Ubrelvy) 100 mg PO DAILY PRN ziprasidone HCl (Geodon) 80 mg PO BID Tobacco use date assessed: 07/22/23 Dental Screening Dental Screen Date: 07/22/23 HPI Follow Up HPI Details Patient comes in today for her follow up visit States that she feels okay except for increased pain over her left knee and left ankle lately States that the pain over her left ankle is mostly over the lateral side of the ankle - she has not noticed any swelling of her ankle or knee lately and she denies any recent injury or trauma to her ankle or knee She denies any headaches or dizziness Denies any chest pains, no increased SOB No nausea/vomiting, no abdominal pain No change in bowel habits noted She had her follow up labs done yesterday - to discuss her results [facility] Medical History (Updated 01/25/24 @ 17:53 by Villa Lr MD) Overactive bladder Diarrhea Morbid obesity with BMI of 40.0-44.9, adult Biliary dyskinesia Elevated TSH Obesity (BMI 30-39.9) Depression Anxiety Insomnia Obstructive sleep apnea Vitamin D deficiency 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 myelopathy or radiculopathy Elevated LFTs Allergic rhinitis Asthma Migraine Pure hypercholesterolemia Benign essential hypertension Diabetes mellitus IBS (irritable bowel syndrome) Gastroparesis Surgical History Status post epidural steroid injection History of cardiac cath Hx of tubal ligation Hx of colonoscopy (~03/2018) Hx of endoscopy History of surgery of head Hx of hysterectomy (~08/2011) Family History Father Diabetes Hypertension Heart problem Mother Arthritis Diabetes Hypertension Maternal Grandmother Breast cancer, Onset Age: 72 Family/Other Diabetes Hypertension Heart problem Social History Household Members: Spouse Housing: House Are you a primary adult day care worker to a significant other at home: No Do you presently have visiting nurse or other home services: No Alcohol intake: current Alcohol intake frequency: does not drink Comment: NOT INDICATED Patient Tobacco Use Status: Never used Tobacco e-Cigarette/Vaping Use: Never Used Second Hand Smoke Exposure: No Advance Directives Date on File: 03/20/16 service: No Current occupational status: disabled Cognitive needs: No Hearing needs: No Vision needs: Yes Female Reproductive History Menstrual Age of Menarche: 13 Questionnaire Thrive Questionnaire Date Thrive assessed: 07/22/23 FADUMO-7 AMB Questionnaire FADUMO-7 Date FADUMO - 7 assessed: 07/22/23 Source: Developed by Drs. Raymond Plunkett, Meaghan Art, Keshav Castro and colleagues, with an educational david from [employer]. Review of Systems Const Denies chills, Reports fatigue, Denies fever(s) and Denies headache(s) Eyes Reports dry eyes (on and off) ENT Denies dysphagia, Denies dizziness, Denies otalgia, Denies headache(s), Reports nasal congestion (at times), Denies odynophagia, Reports sinus pressure and Denies sore throat Card Denies chest pain, Denies chest pain with activity, Denies palpitations and Reports dyspnea on exertion (mild) Resp Denies chest congestion, Reports cough (on and off, non-productive), Reports dyspnea on exertion (mild) and Denies wheezing GI Denies abdominal pain, Denies dysphagia, Denies heartburn, Denies diarrhea, Denies nausea, Denies odynophagia and Denies vomiting Denies hematuria, Denies difficulty voiding, Reports nocturia, Denies dysuria, Reports urinary incontinence and Denies urinary urgency Musc Reports back pain (over the lower back - chronic) and Reports arthralgias (on and off; more recently over the left knee and left ankle (lateral)) Neuro Denies dizziness and Denies headache(s) Endo Reports fatigue and Denies palpitations Aller/Immun Denies wheezing Physical exam (Primary Care) Vital Signs: Last Vital Signs Pulse 86 01/23/24 14:03 BP 108/72 01/23/24 14:03 Pulse Ox 99 01/23/24 14:03 Oxygen Delivery Method Room Air 01/23/24 14:03 BMI result Body Mass Index 40.9 Tobacco/Smoking Status: Tobacco use Status Tobacco use date assessed 07/22/23 01/23/24 13:53 Patient Tobacco Use Status Never used Tobacco 01/23/24 13:53 e-Cigarette/Vaping Use Never Used 01/23/24 13:53 Thrive Assessment: Date of Thrive Assessment Date Thrive assessed 07/22/23 01/23/24 13:53 Const General: no acute distress and alert HENMT Ears: TM's normal bilaterally and EAC's normal Throat: Yes posterior oropharynx normal and Yes tonsils normal (no TP congestion noted) Neck Neck: Yes no lymphadenopathy and Yes supple Thyroid: Thyroid normal Resp Auscultation: clear to auscultation bilaterally, no rales and no wheezes Cardio Rate: regular rate Rhythm: regular rhythm Heart sounds: no murmurs GI Palpation (GI): Soft to palpation and nontender Auscultation: normal bowel sounds General: Yes no CVA tenderness Back/Spine/Pelvis Back: no CVA tenderness Thoracic/Lumbar Spine: thoracic spinal tenderness and lumbar spinal tenderness Skin Rashes: no rashes Extrem General: Yes no clubbing, cyanosis or edema Left lower extremity: knee Details: tenderness Location: of the pre-patellar area and of the infrapatellar area; no swelling and ankle Details: tenderness Location: of the lateral malleolus; no swelling Results Reviewed Results Reviewed: Laboratory Tests 01/22/24 09:26 WBC 7.9 Hgb 12.5 Hct 39.5 Plt Count 286 Sodium 139 Potassium 3.8 Creatinine 0.79 Estimated GFR > 60 Random Glucose 134 H Calcium 10.1 AST 13 ALT 11 Vitamin B12 634 Folate 11.0 Ur Specific [place] <= 1.005 Urine Protein Negative Urine Glucose (UA) Negative Urine Blood Negative Urine Nitrite Negative Ur Leukocyte Esterase Negative Assessment and Plan Assessment & Plan (1) Pure hypercholesterolemia: Code(s): E78.00 - Pure hypercholesterolemia, unspecified Plan: Patient underwent coronary angiography on 06/11/2022 after her cardiac stress testing done a few months prior came back abnormal - myocardial perfusion study revealed (+) distal lateral, apical and inferoapical ischemia Cardiac catheterization revealed completely normal coronaries with no atherosclerotic lesions Results of her labs done yesterday reviewed and discussed with patient but these were apparently non-fasting labs and did not include her fasting lipids; her cholesterol numbers were at goal when last checked a couple of months ago Reinforced low cholesterol diet Continue Atorvastatin 20 mg QD Will recheck her labs and fasting lipids in 4 months for follow-up (2) Diabetes mellitus: Comment: taking Victoza, Metformin & Actos Code(s): E11.9 - Type 2 diabetes mellitus without complications Qualifiers: Diabetes mellitus complication status: without complication Diabetes mellitus mcc insulin use: without bed bug 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 use Diabetes mellitus type: type 2 Qualified Code(s): E11.9 - Type 2 diabetes mellitus without complications Plan: Her HgbA1c was at 7.4% when last checked a couple of months ago in October 2023 (was at 7.1% previously in June 2023) - goal is HgbA1c of < 7.0% Reinforced diabetic diet Continue Victoza 18 mg/ 3 mL 0.2 mL (1.2 mg) QD and Metformin 500 mg BID; will increase her Pioglitazone from 30 mg QD to 45 mg QD (3) Benign essential hypertension: Code(s): I10 - Essential (primary) hypertension Plan: Reinforced low sodium diet - goal is systolic BP of at least 120 to 130 mm or less Patient is reminded to continue monitoring her blood pressure regularly - patient has not needed any Rx for her BP for the past year or two now although she is on Propranolol 80 mg BID for prophylaxis Tx of her migraine headaches (4) Migraine: Code(s): G43.909 - Migraine, unspecified, not intractable, without status migrainosus Qualifiers: Intractability: not intractable Migraine type: unspecified Status migrainosus presence: without status migrainosus Qualified Code(s): G43.909 - Migraine, unspecified, not intractable, without status migrainosus Plan: Continue Topiramate 100 mg BID, Propranolol 60 mg BID and Fioricet 50-325 mg 1 tablet every 4-6 hours as needed Continue Ubrelvy 100 mg PRN; patient also receives Botox injection every 3 months from Neurology, and states that her migraine headaches have been much better controlled lately on her current Rx Follow-up with Neurology (Dr. Lieberman) every 3 months as scheduled (5) Asthma: Comment: SHE CONTINUES TO COMPLAIN OF SHORTNESS OF BREATH ON WALKING, AND SOMETIME WAKES UP AT NIGHT. PULMONARY FUNCTION TEST IS ESSENTIALLY NORMAL. I THINK SHORTNESS OF BREATH ON EXERTION IS RELATED TO HER MORBID OBESITY AND ALSO SLEEP APNEA. HOWEVER SUBJECTIVELY SHE HAS SYMPTOMS OF BRONCHIAL ASTHMA AND ALLERGIC RHINITIS. Code(s): J45.909 - Unspecified asthma, uncomplicated Qualifiers: Asthma complication type: uncomplicated Asthma persistence: persistent Asthma severity: moderate Qualified Code(s): J45.40 - Moderate persistent asthma, uncomplicated Plan: Controlled Continue QVAR RediHaler 80 mcg 1 puff twice a day and ProAir HFA 2 puffs 4 times a day as needed (6) Allergic rhinitis: Comment: SYMPTOMS OF CHRONIC ALLERGIC RHINITIS SEEM TO BE UNDER CONTROLLED. ADVISED TO CONTINUE USING MONTELUKAST 10 MG DAILY. Code(s): J30.9 - Allergic rhinitis, unspecified Qualifiers: Allergic rhinitis seasonality: unspecified Allergic rhinitis trigger: unspecified Qualified Code(s): J30.9 - Allergic rhinitis, unspecified Plan: Continue Montelukast 10 mg QD and Rhinocort Aqua 2 sprays to each nostril QD PRN She was on Nasacort nasal spray 1 spray to each nostril QD in the past but she stopped using it a while back as the nasal spray reportedly irritates her sinuses (7) Obstructive sleep apnea: Comment: uses CPAP THIS PATIENT IS KNOWN TO HAVE OBSTRUCTIVE SLEEP APNEA SINCE 2019 HAS BEEN USING CPAP REGULARLY. SHE IS BEING FOLLOWED BY AND MANAGED FOR SLEEP APNEA BY HER NEUROLOGIST, DR. LIEBERMAN . CLAIMS THAT SHE DOES USE THE CPAP EVERY NIGHT. Code(s): G47.33 - Obstructive sleep apnea (adult) (pediatric) Plan: Continue using her CPAP device every night when sleeping Follow up with Sleep Medicine as scheduled (8) 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 myelopathy or radiculopathy: Code(s): M47.816 - Spondylosis without myelopathy or radiculopathy, lumbar region Plan: Reinforced activity and weight-lifting restrictions Repeat lumbar spine x-rays done a couple of years ago showed (+) degenerative changes at L5-S1 and lower lumbar facet arthritis Lumbar spine MRI done on 09/14/2021 revealed a severe disc height loss with mild subchondral endplate edema at L5-S1. The bulging this flattens the ventral thecal sac with encroachment on the subarticular zones and abutment of both exiting L5 nerve roots Continue Tramadol 50 mg TID PRN and Gabapentin 300 mg Q HS Follow up with pain management as scheduled - gets injections when needed with (+) relief (9) Chronic idiopathic constipation: Code(s): K59.04 - Chronic idiopathic constipation Plan: Reinforced increased oral fluids and dietary fiber Continue Linzess 290 mcg QD, MOM 5 ml Q HS and Fiber Laxative daily Follow up with GI as scheduled for continuing management of her chronic constipation (10) GERD (gastroesophageal reflux disease): Code(s): K21.9 - Gastro-esophageal reflux disease without esophagitis Qualifiers: Esophagitis presence: without esophagitis Qualified Code(s): K21.9 - Gastro-esophageal reflux disease without esophagitis Plan: Dietary restrictions reinforced Continue Esomeprazole 40 mg QD (11) Biliary dyskinesia: Code(s): K82.8 - Other specified diseases of gallbladder Plan: HIDA scan with [facility]CK done in November 2020 revealed poor gallbladder emptying and low gallbladder ejection fraction consistent with impaired gallbladder contractility and suggests chronic cholecystitis Was referred to and seen by surgery last year and advised that her symptoms are more suggestive of GERD and recommended no surgery at the time but patient was advised to call if her symptoms get worse (12) Elevated LFTs: Code(s): R79.89 - Other specified abnormal findings of blood chemistry Plan: Improved - was most likely related to her weight (hepatosteatosis) LFTs on her recent labs remain normal - will continue to monitor her LFTs regularly (13) Vitamin D deficiency: Code(s): E55.9 - Vitamin D deficiency, unspecified Plan: Continue Vitamin D3 2000 units QD (14) Elevated vitamin B12 level: Code(s): R74.8 - Abnormal levels of other serum enzymes Plan: Patient is advised that her Vitamin B12 level has been elevated significantly for a while and she was referred to hematology for further evaluation Her work ups were all essentially normal, including flow cytometry She was advised that this was likely caused by enhanced production of haptoglobin related to her liver disease Her most recent B12 level is now normal - will continue to monitor this regularly (15) Left lateral ankle pain: Code(s): M25.572 - Pain in left ankle and joints of left foot Plan: Will send her for x-rays of the left ankle for further evaluation (16) Left knee pain: Code(s): M25.562 - Pain in left knee Qualifiers: Chronicity: unspecified Qualified Code(s): M25.562 - Pain in left knee Plan: Will send patient for left knee x-rays for further evaluation (17) Overactive bladder: Code(s): N32.81 - Overactive bladder Plan: Follow up with urology as scheduled She uses Adult pull ups to help manage her OAB (18) Insomnia: Code(s): G47.00 - Insomnia, unspecified Qualifiers: Insomnia type: unspecified Qualified Code(s): G47.00 - Insomnia, unspecified Plan: Sleep hygiene reinforced Continue Zolpidem 10 mg Q HS PRN (19) Anxiety: Code(s): F41.9 - Anxiety disorder, unspecified Plan: Continue Clonazepam 1 mg TID PRN (20) Depression: Code(s): F32.9 - Major depressive disorder, single episode, unspecified Qualifiers: Active/Remission status: currently active Depression Type: major depressive disorder Major depression episode severity: unspecified Major de pression recurrence: recurrent Qualified Code(s): F33.9 - Major depressive disorder, recurrent, unspecified Plan: Continue Geodon 80 mg BID, Sertraline 100 mg once a day and Amitriptyline 75 mg once a day at bedtime Follow-up with Psychiatry as scheduled (21) Morbid obesity with BMI of 40.0-44.9, adult: Comment: BMI=41.2 SHE HAS BEEN MORBIDLY OBESE FOR MANY YEARS. Code(s): E66.01 - Morbid (severe) obesity due to excess calories; Z68.41 - Body mass index [BMI] 40.0-44.9, adult Plan: Reinforced diet/exercise as tolerated /lose weight Plan Follow up in 4 months Orders: Orders XR knee LT 4V 01/23/24 M25.562 - Pain in left knee XR ankle LT min 3V 01/23/24 M25.572 - Pain in left ankle and joints of left foot Comprehensive [place]. Panel Fast 4 Months E78.00 - Pure hypercholesterolemia, unspecified Lipid Panel 4 Months E78.00 - Pure hypercholesterolemia, unspecified Hemoglobin A1c 4 Months E11.9 - Type 2 diabetes mellitus without complications Microalbumin, Random (w Creat) 4 Months E11.9 - Type 2 diabetes mellitus without complications TSH reflex Free T4 4 Months E78.00 - Pure hypercholesterolemia, unspecified Vitamin B12 and Folate 4 Months E53.8 - Deficiency of other specified B group v itamins Complete Blood Count Auto Diff 4 Months D64.9 - Anemia, unspecified UA CC w/rflx Micro + Cult 4 Months R30.0 - Dysuria Vitamin D 25-OH Total 4 Months E55.9 - Vitamin D deficiency, unspecified Medications: Changed From pioglitazone 30 mg PO DAILY 90 days 90 tabs 1RF E11.9 - Type 2 diabetes mellitus without complications To pioglitazone 45 mg PO DAILY 90 days 90 tabs 1RF E11.9 - Type 2 diabetes mellitus without complications Coding Level of Care Code Est Pt Level 4 (88742) Complex EM visit Add On G2211 Diagnoses Pure hypercholesterolemia E78.00 Type 2 diabetes mellitus without complication, without long-term current use of insulin E11.9 Diabetes mellitus complication status: without complication Diabetes mellitus bed bug 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 insulin use: without bed bug 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 use Diabetes mellitus type: type 2 Benign essential hypertension I10 Migraine without status migrainosus, not intractable, unspecified migraine type G43.909 Intractability: not intractable Migraine type: unspecified Status migrainosus presence: without status migrainosus Moderate persistent asthma without complication J45.40 Asthma complication type: uncomplicated Asthma persistence: persistent Asthma severity: moderate Allergic rhinitis, unspecified seasonality, unspecified trigger J30.9 Allergic rhinitis seasonality: unspecified Allergic rhinitis trigger: unspecified Obstructive sleep apnea G47.33 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 myelopathy or radiculopathy M47.816 Chronic idiopathic constipation K59.04 Gastroesophageal reflux disease without esophagitis K21.9 Esophagitis presence: without esophagitis Biliary dyskinesia K82.8 Elevated LFTs R79.89 Vitamin D deficiency E55.9 Elevated vitamin B12 level R74.8 Left lateral ankle pain M25.572 Left knee pain, unspecified chronicity M25.562 Chronicity: unspecified Overactive bladder N32.81 Insomnia, unspecified type G47.00 Insomnia type: unspecified Anxiety F41.9 Episode of recurrent major depressive disorder, unspecified depression episode severity F33.9 Active/Remission status: currently active Depression Type: major depressive disorder Major depression episode severity: unspecified Major depression recurrence: recurrent Morbid obesity with BMI of 40.0-44.9, adult E66.01; Z68.41
[2024-01-23 14:03] VITALS: BP 108/72; PULSE 86; O2SAT 99; BMI 40.9
== END 2024-01-23 14:33 | disposition home or self-care (01) ==
PROVIDERS: PCP Internal Medicine; Visit Provider Internal Medicine
DX: M25.562 Pain in left knee (principal); M25.572 Pain in left ankle and joints of left foot; E11.9 Type 2 diabetes mellitus without complications; F41.9 Anxiety disorder, unspecified; I10 Essential (primary) hypertension; G43.909 Migraine, unspecified, not intractable, without status migrainosus; J45.40 Moderate persistent asthma, uncomplicated; J30.9 Allergic rhinitis, unspecified; G47.33 Obstructive sleep apnea (adult) (pediatric); M47.816 Spondylosis without myelopathy or radiculopathy, lumbar region; F33.9 Major depressive disorder, recurrent, unspecified; E66.01 Morbid (severe) obesity due to excess calories; Z68.41 Body mass index [BMI] 40.0-44.9, adult; K59.04 Chronic idiopathic constipation; K21.9 Gastro-esophageal reflux disease without esophagitis; K82.8 Other specified diseases of gallbladder; R79.89 Other specified abnormal findings of blood chemistry; E55.9 Vitamin D deficiency, unspecified; R74.8 Abnormal levels of other serum enzymes; N32.81 Overactive bladder
CPT/HCPCS: 99214; G2211

== ENCOUNTER 2024-01-23 14:38 | Outpatient (REF) | payer OTHER, SELFPAY ==
--- NOTE | ~2024-01-23 | XR_ITS ---
EXAMINATION: XR ANKLE, LEFT CLINICAL INFORMATION: Pain in the left ankle COMPARISON: None available. TECHNIQUE: AP, lateral, and mortise views of the left ankle. FINDINGS: No fracture. Alignment is anatomic. No erosions. Joint spaces are maintained. Soft tissues are normal. XR/XR ankle LT min 3V IMPRESSION: Normal left ankle.
--- NOTE | ~2024-01-23 | XR_ITS ---
EXAMINATION: XR KNEE, LEFT CLINICAL INFORMATION: Pain in the left knee. COMPARISON: X-ray of the left knee January 2016. TECHNIQUE: 4 views of the left knee. FINDINGS: There is a tiny calcific/ossific density adjacent to the medial femoral condyle likely reflecting an old medial collateral ligament tear. Remaining bones, joints and soft tissues are normal. No effusion. XR/XR knee LT 4V IMPRESSION: Tiny calcific/ossific density adjacent to the medial femoral condyle likely reflects old medial collateral ligament tear, although new compared to the prior x-ray January 2016.
== END 2024-01-23 14:39 | disposition home or self-care (01) ==
LOC: HO.XRAY 14:38
PROVIDERS: PCP Internal Medicine; Visit Provider Internal Medicine
DX: M25.572 Pain in left ankle and joints of left foot (principal); M25.562 Pain in left knee
CPT/HCPCS: 73564; 73610

== ENCOUNTER 2024-01-26 15:17 | Outpatient (AMB) | payer OTHER, SELFPAY ==
[2024-01-26 15:29] VITALS: BP 110/78; PULSE 79; O2SAT 99; BMI 41.2
--- NOTE | 2024-01-26 15:29 | A.OFFVIS_ITS ---
Vital Signs 01/26/24 15:29 Height 5 ft 4 in Weight 240 lb 4.862 oz BMI 41.2 BP 110/78 Blood Pressure Location Lt brachial Position Sitting Pulse 79 Pulse Source Pulse Oximeter Pulse Oximetry (%) 99 Oxygen Delivery Method Room Air Intake Visit Reasons: dyspnea Intake Note: pt is here for follow up and states some coughing, wheezing and short of breath, cough is sometimes wet but unable to get it out. needs alternative to Qvar, unable to get at pharmacy Underwriting Technician Required: Yes Underwriting Technician Services: Underwriting Technician Present Underwriting Technician Name: Viviane Allergies meclizine Adverse Reaction (Verified 01/26/24 15:47) tachycardia metoclopramide Adverse Reaction (Verified 01/26/24 15:47) tachycardia Medication List - Last Reconciled 01/26/24 by Nasreen Bella MD acetaminophen 500 mg PO Q6H PRN [ADULT PULL UPS As directed] albuterol sulfate 90 mcg/actuation (Ventolin HFA) 2 puffs inhalation QID PRN alum-mag hydroxide-simeth 400-400-40 mg/5 mL (Mylanta Maximum Strength) 10 mL PO TID PRN amitriptyline 75 mg PO DAILY atorvastatin 20 mg PO BEDTIME 90 days baclofen 10 mg PO BID PRN blood sugar diagnostic (FreeStyle Lite Strips) TEST BLOOD SUGAR DIRECTED 3 TIMES A DAY budesonide 32 mcg/actuation 2 sprays intranasal DAILY PRN cane As directed cholecalciferol (vitamin D3) 50 mcg PO DAILY 90 days clonazepam 1 mg PO TID diaper,brief,adult,disposable (Depend Easy Fit Undergarments mis) As directed erenumab-aooe (Aimovig Autoinjector) 140 mg subcut [id number] esomeprazole magnesium 40 mg PO DAILY [FREESTYLE LITE TEST STRIPS Test blood sugar as directed 3 times a day - E11.9 -- DIABETES] FreeStyle Lite Meter (blood-glucose meter) As directed NS gabapentin 300 mg PO BEDTIME lancets (FreeStyle Lancets) As directed- 3 times a day linaclotide (Linzess) 290 mcg PO QAM liraglutide (Victoza 3-Shamir) 1.2 mg (0.2 mL) subcut DAILY melatonin 6 mg PO BEDTIME metformin 500 mg PO BID 90 days methylcellulose (laxative) (Fiber Therapy (methylcellulose)) 500 mg PO BID montelukast 10 mg PO BEDTIME 90 days ondansetron 4 mg sublingual TID pen needle, diabetic (Comfort EZ Pen [place]) As directed daily pioglitazone 45 mg PO DAILY 90 days propranolol 60 mg PO BID sennosides (senna) 17.2 mg (2 x 8.6 mg) PO BEDTIME PRN sertraline 100 mg PO DAILY simethicone 180 mg PO TID terconazole 0.8% 1 appful vaginal BEDTIME 3 days topiramate 100 mg PO BID tramadol 50 mg PO TID PRN 30 days triamcinolone acetonide 1 spray intranasal DAILY ubrogepant (Ubrelvy) 100 mg PO DAILY PRN ziprasidone HCl (Geodon) 80 mg PO BID Do you need a note to return to daycare/school/sports/work: No HPI HPI dyspnea: Details: 48 years old female with morbid obesity, obstructive sleep apnea, and mild bronchial asthma, Comes here after 6 months mainly for follow-up of bronchial asthma. On her last visit in June 2023, she was prescribed QVAR RediHaler , for possibility of mild bronchial asthma. However due to insurance noncoverage she has not been able to get it. She does have Ventolin inhaler on hand which she uses about once or twice a week, when she has bouts of cough or any wheezing. It helps. Her dyspnea on exertion is minimal. Weight remains unchanged. [facility] Medical History Overactive bladder Diarrhea Morbid obesity with BMI of 40.0-44.9, adult Biliary dyskinesia Elevated TSH Obesity (BMI 30-39.9) Depression Anxiety Insomnia Obstructive sleep apnea Vitamin D deficiency 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 myelopathy or radiculopathy Elevated LFTs Allergic rhinitis Asthma Migraine Pure hypercholesterolemia Benign essential hypertension Diabetes mellitus IBS (irritable bowel syndrome) Gastroparesis Surgical History Status post epidural steroid injection History of cardiac cath Hx of tubal ligation Hx of colonoscopy (~03/2018) Hx of endoscopy History of surgery of head Hx of hysterectomy (~08/2011) Family History Father Diabetes Hypertension Heart problem Mother Arthritis Diabetes Hypertension Maternal Grandmother Breast cancer, Onset Age: 72 Family/Other Diabetes Hypertension Heart problem Social History Household Members: Spouse Housing: House Are you a primary childcare aide to a significant other at home: No Do you presently have visiting nurse or other home services: No Alcohol intake: current Alcohol intake frequency: does not drink Comment: NOT INDICATED Patient Tobacco Use Status: Never used Tobacco e-Cigarette/Vaping Use: Never Used Second Hand Smoke Exposure: No Advance Directives Date on File: 03/20/16 service: No Current occupational status: disabled Cognitive needs: No Hearing needs: No Vision needs: Yes Female Reproductive History Menstrual Age of Menarche: 13 Review of Systems Const All systems reviewed & are unremarkable except as noted in HPI and below Reports headache(s) Eyes Reports no additional complaints ENT Reports no additional complaints and Reports headache(s) Card Denies irregular heart rhythm, Denies leg edema and Reports dyspnea on exertion Resp Reports as per HPI and Reports dyspnea on exertion GI Reports no additional complaints Reports no additional complaints Musc Reports back pain, Reports myalgias and Reports arthralgias Skin/Breast Reports system reviewed and no additional complaints, except as documented Neuro Reports headache(s) Psych Reports anxiety and Reports depression Endo Reports other (DIABETES MELLITUS) Sohail/Lymph Reports no additional complaints Aller/Immun Reports no additional complaints Physical Exam Vital Signs: Last Vital Signs Pulse 79 01/26/24 15:29 BP 110/78 01/26/24 15:29 Pulse Ox 99 01/26/24 15:29 Oxygen Delivery Method Room Air 01/26/24 15:29 BMI result Body Mass Index 41.2 PATIENT IS MORBIDLY OBESE WITH A ROUND FACE AND SHORT NECK AND NARROW OROPHARYNX Const General: comfortable, no acute distress, alert and awake Orientation/consciousness: patient oriented x3 HEENT Head: Yes normal to inspection General nose exam: No nasal polyps present and No nasal discharge present Face and sinus: Yes sinuses nontender Mouth: oropharynx normal Throat: Yes posterior oropharynx normal Eyes General: appearance normal, both eyes and all related structures Neck Neck: Yes normal visual inspection, Yes no lymphadenopathy, Yes trachea midline and Yes no JVD Thyroid: Thyroid normal Chest Chest palpation & inspection: normal inspection of the chest, normal palpation of entire chest wall and no tenderness Resp Other: PERCUSSION NOTE IS NOT WELL PERCEPTIBLE BECAUSE OF THE THICK CHEST WALL. BREATH SOUNDS ARE SLIGHTLY DISTANT BUT LUNGS ARE CLEAR WITHOUT ANY WHEEZING OR CREPITATIONS Cardio Palpation: normal PMI Rate: regular rate Rhythm: regular rhythm Heart sounds: no gallops and no murmurs GI Palpation (GI): Soft to palpation, nontender, No hepatosplenomegaly present and no masses Auscultation: normal bowel sounds Back/Spine/Pelvis Thoracic/Lumbar Spine: thoracic and lumbar spine normal to inspection and thoraco-lumbar ROM limited Skin General skin exam: no rashes or lesions noted Neuro General: patient oriented x3 and no focal motor deficits Cranial nerves: Yes CN's II-XII intact bilaterally Extrem General: Yes normal to inspection, Yes no clubbing, cyanosis or edema and Yes no calf tenderness Psych Speech and movement: Normal speech and movement present Assessment & Plan Assessment & Plan (1) Morbid obesity with BMI of 40.0-44.9, adult: Comment: BMI=41.2 SHE HAS BEEN MORBIDLY OBESE FOR MANY YEARS. Code(s): E66.01 - Morbid (severe) obesity due to excess calories; Z68.41 - Body mass index [BMI] 40.0-44.9, adult Category: Medical Plan: Discussed about the weight. She needs to lose weight, which she is trying to do on her own. Once again discussed about diet and need to walk on a daily basis. (2) Obstructive sleep apnea: Comment: THIS PATIENT IS KNOWN TO HAVE OBSTRUCTIVE SLEEP APNEA SINCE 2020 HAS BEEN USING CPAP REGULARLY. SHE IS BEING FOLLOWED BY AND MANAGED FOR SLEEP APNEA BY HER NEUROLOGIST. CLAIMS THAT SHE DOES USE THE CPAP EVERY NIGHT. Code(s): G47.33 - Obstructive sleep apnea (adult) (pediatric) Category: Medical Plan: CONTINUE TO USE THE CPAP EVERY NIGHT . (3) Allergic rhinitis: Comment: SYMPTOMS OF CHRONIC ALLERGIC RHINITIS SEEM TO BE UNDER CONTROLLED. Code(s): J30.9 - Allergic rhinitis, unspecified Category: Medical Qualifiers: Allergic rhinitis trigger: unspecified Allergic rhinitis seasonality: unspecified Qualified Code(s): J30.9 - Allergic rhinitis, unspecified Plan: ADVISED TO CONTINUE USING MONTELUKAST 10 MG DAILY. (4) Asthma: Comment: SHE CONTINUES TO COMPLAIN OF MINIMAL SHORTNESS OF BREATH ON WALKING, BUT NO WHEEZING. PULMONARY FUNCTION TEST WAS ESSENTIALLY NORMAL. SHE MAY STILL HAVE MILD INTERMITTENT BRONCHIAL ASTHMA. I THINK SHORTNESS OF BREATH ON EXERTION IS RELATED TO HER MORBID OBESITY. Code(s): J45.909 - Unspecified asthma, uncomplicated Category: Medical Qualifiers: Asthma severity: moderate Asthma persistence: persistent Asthma complication type: uncomplicated Qualified Code(s): J45.40 - Moderate persistent asthma, uncomplicated Plan: ADVISE THAT SHE CAN USE VENTOLIN 2 PUFFS Q 6 HOURS P.R.N. IF SHE HAS ANY ATTACK OF PERSISTENT COUGH OR WHEEZING. I DO NOT THINK SHE NEEDS ANY INHALED STEROID OR ANY LONG-ACTING BRONCHODILATORS. Coding Level of Care Code Est Pt Level 3 (69953) Diagnoses Morbid obesity with BMI of 40.0-44.9, adult E66.01; Z68.41 Obstructive sleep apnea G47.33 Allergic rhinitis, unspecified seasonality, unspecified trigger J30.9 Allergic rhinitis trigger: unspecified Allergic rhinitis seasonality: unspecified Moderate persistent asthma without complication J45.40 Asthma severity: moderate Asthma persistence: persistent Asthma complication type: uncomplicated
== END 2024-01-26 15:47 | disposition home or self-care (01) ==
PROVIDERS: PCP Internal Medicine; Visit Provider Internal Medicine
DX: E66.01 Morbid (severe) obesity due to excess calories (principal); Z68.41 Body mass index [BMI] 40.0-44.9, adult; G47.33 Obstructive sleep apnea (adult) (pediatric); J30.9 Allergic rhinitis, unspecified; J45.40 Moderate persistent asthma, uncomplicated
CPT/HCPCS: 99213

== ENCOUNTER → 2024-01-26 15:17 | Outpatient (BNVA) | payer OTHER, SELFPAY | PROVIDERS: PCP Internal Medicine; Visit Provider Internal Medicine | DX: J45.40 Moderate persistent asthma, uncomplicated (principal); J30.9 Allergic rhinitis, unspecified; G47.33 Obstructive sleep apnea (adult) (pediatric); E66.01 Morbid (severe) obesity due to excess calories; Z68.41 Body mass index [BMI] 40.0-44.9, adult | CPT/HCPCS: 99212 ==

== ENCOUNTER 2024-02-17 09:52 | Outpatient (REF) | payer OTHER, SELFPAY ==
--- NOTE | ~2024-02-17 | US_ITS ---
EXAMINATION: US RETROPERITONEAL COMPLETE (RENAL) CLINICAL INFORMATION: Renal cyst. COMPARISON: Ultrasound abdomen 09/27/2023. MR lumbar spine 02/26/2023, CT enterography 08/14/2021. TECHNIQUE: Real-time imaging of the kidneys FINDINGS: RIGHT KIDNEY: 12.6 x 4.8 x 6.4 cm (SAG x AP x TRV). The kidney is normal in size, contour, and echogenicity. Renal cortical thickness is normal. No focal parenchymal lesions. There is a 3 mm mid renal echogenic focus seen consistent with a nonobstructing calculus. No hydronephrosis. LEFT KIDNEY: 12.8 x 5.6 x 7.0 cm (SAG x AP x TRV). The kidney is normal in size, contour, and echogenicity. Renal cortical thickness is normal. Although the global expansion sales director had the impression that hydronephrosis was present, I suspect that the findings are secondary to parapelvic cysts rather than obstructive hydronephrosis. There is a complex cyst with debris near the upper pole measuring 5.8 x 5.6 x 5.5 cm along with some other probable parapelvic cysts. Echogenic focus at the lower pole measuring 1.1 cm consistent with a nonobstructing calculus. BLADDER: Well distended and normal. Bilateral ureteral jets are demonstrated. Prevoid US/US renal BI IMPRESSION: 1. Bilateral nonobstructing renal calculi. 2. Left-sided renal cysts. 3. Parapelvic cyst versus hydronephrosis on the left although I suspect that hydronephrosis is not present. CT urography could always be performed for further evaluation. Electronically signed by: Rick Price MD 03/02/2024 12:35 AM EDT
== END 2024-02-17 09:53 | disposition home or self-care (01) ==
LOC: HO.US 09:52
PROVIDERS: PCP Internal Medicine; Visit Provider Nurse Practitioner Family
DX: N28.1 Cyst of kidney, acquired (principal)
CPT/HCPCS: 76775

== ENCOUNTER 2024-02-25 09:27 | Outpatient (AMB) | payer OTHER, SELFPAY ==
--- NOTE | 2024-02-25 09:31 | A.OFFVIS_ITS ---
Intake Visit Reasons: 1y/US(pending 02/16) Intake Note: Patient presents today for follow up on: Renal Cyst and Ultrasound Results Imaging Completed: 02/17/24 Urology Medications: none Blood Thinner: none Victorian Literature Professor Required: Yes Victorian Literature Professor Services: Victorian Literature Professor Present Victorian Literature Professor Name: [id number] Accompanied by: Unknown Allergies meclizine Adverse Reaction (Verified 03/02/24 13:03) tachycardia metoclopramide Adverse Reaction (Verified 03/02/24 13:03) tachycardia Medication List - Last Reconciled 02/25/24 by MATEUSZ Balderas acetaminophen 500 mg PO Q6H PRN [ADULT PULL UPS As directed] albuterol sulfate 90 mcg/actuation (Ventolin HFA) 2 puffs inhalation QID PRN alum-mag hydroxide-simeth 400-400-40 mg/5 mL (Mylanta Maximum Strength) 10 mL PO TID PRN amitriptyline 75 mg PO DAILY atorvastatin 20 mg PO BEDTIME 90 days baclofen 10 mg PO BID PRN blood sugar diagnostic (FreeStyle Lite Strips) TEST BLOOD SUGAR DIRECTED 3 TIMES A DAY budesonide 32 mcg/actuation 2 sprays intranasal DAILY PRN cane As directed cholecalciferol (vitamin D3) 50 mcg PO DAILY 90 days clonazepam 1 mg PO TID diaper,brief,adult,disposable (Depend Easy Fit Undergarments [facility] [place]) As directed erenumab-aooe (Aimovig Autoinjector) 140 mg subcut [id number] esomeprazole magnesium 40 mg PO DAILY [FREESTYLE LITE TEST STRIPS Test blood sugar as directed 3 times a day - E11.9 -- DIABETES] FreeStyle Lite Meter (blood-glucose meter) As directed NS gabapentin 300 mg PO BEDTIME lancets (FreeStyle Lancets) As directed- 3 times a day linaclotide (Linzess) 290 mcg PO QAM liraglutide (Victoza 3-Shamir) 1.2 mg (0.2 mL) subcut DAILY melatonin 6 mg PO BEDTIME metformin 500 mg PO BID 90 days methylcellulose (laxative) (Fiber Therapy (methylcellulose)) 500 mg PO BID montelukast 10 mg PO BEDTIME 90 days ondansetron 4 mg sublingual TID pen needle, diabetic (Comfort EZ Pen [place]) As directed daily pioglitazone 45 mg PO DAILY 90 days propranolol 60 mg PO BID sennosides (senna) 17.2 mg (2 x 8.6 mg) PO BEDTIME PRN sertraline 100 mg PO DAILY sertraline 50 mg PO DAILY simethicone 180 mg PO TID terconazole 0.8% 1 appful vaginal BEDTIME 3 days topiramate 100 mg PO BID topiramate 50 mg PO BID tramadol 50 mg PO TID PRN 30 days triamcinolone acetonide 1 spray intranasal DAILY ubrogepant (Ubrelvy) 100 mg PO DAILY PRN ziprasidone HCl (Geodon) 80 mg PO BID HPI Comments Details: Ute is a very pleasant 48-year-old Kyrgyz-speaking female patient of Dr. Lr who was accompanied by her family member at today's visit. She has a past medical history of allergic rhinitis, anxiety, asthma, hypertension, depression, diabetes mellitus, gastroparesis, IBS, insomnia, migraines, obesity, obstructive sleep apnea, hypercholesteremia, spondylosis of lumbar region without myelopathy or radiculopathy and vitamin-D deficiency. She presents to the office today for follow-up of her complex left renal cyst. Recent imaging results reviewed with the patient and her family today. Right kidney with 3 mm renal echogenic focus seen consistent with nonobstructing calculus. No hydronephrosis noted. Left kidney with peripelvic cysts. There is a complex cyst with debris near the upper pole measuring a proximally 5.8 mL alone with other peripelvic cysts. Echogenic focus measuring a proximally 1.1 cm consistent with nonobstructing calculus. The bladder is well distended and normal. Bladder jets are demonstrated. Patient with previous MRI imaging in 2019 as well as 2020 which did not demonstrate any solid component nodularity or enhancement. Discussed at length potential causes for renal cysts. Discussed continuing with interval surveillance imaging monitoring. Patient otherwise denies any bothersome urinary issues or concerns at this time. In office urinalysis results reviewed with the patient today. She denies urinary urgency, urinary frequency, incontinence, nocturia, hematuria, dysuria, foul smelling urine, changes to urinary stream, flank pain, fever, and or chills. She is happy with her current voiding parameters. [facility] Medical History Overactive bladder Diarrhea Morbid obesity with BMI of 40.0-44.9, adult Biliary dyskinesia Elevated TSH Obesity (BMI 30-39.9) Depression Anxiety Insomnia Obstructive sleep apnea Vitamin D deficiency 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 myelopathy or radiculopathy Elevated LFTs Allergic rhinitis Asthma Migraine Pure hypercholesterolemia Benign essential hypertension Diabetes mellitus IBS (irritable bowel syndrome) Gastroparesis Surgical History Status post epidural steroid injection History of cardiac cath Hx of tubal ligation Hx of colonoscopy (~03/2018) Hx of endoscopy History of surgery of head Hx of hysterectomy (~08/2011) Family History Father Diabetes Hypertension Heart problem Mother Arthritis Diabetes Hypertension Maternal Grandmother Breast cancer, Onset Age: 72 Family/Other Diabetes Hypertension Heart problem Social History Household Members: Spouse Housing: House Are you a primary healthcare administrative assistant to a significant other at home: No Do you presently have visiting nurse or other home services: No Alcohol intake: current Alcohol intake frequency: does not drink Comment: NOT INDICATED Patient Tobacco Use Status: Never used Tobacco e-Cigarette/Vaping Use: Never Used Second Hand Smoke Exposure: No Advance Directives Date on File: 03/20/16 service: No Current occupational status: disabled Cognitive needs: No Hearing needs: No Vision needs: Yes Female Reproductive History Menstrual Age of Menarche: 13 Review of Systems Const Reports as per HPI Eyes Reports no additional complaints ENT Reports no additional complaints Card Reports as per HPI Resp Reports as per HPI GI Reports as per HPI Reports as per HPI Musc Reports as per HPI Psych Reports as per HPI Endo Reports as per HPI Physical Exam Const General: cooperative, comfortable, no acute distress, well developed, alert and awake Orientation/consciousness: patient oriented x3 Limitations: no limitations HEENT Head: Yes normal to inspection, Yes normocephalic and Yes atraumatic Ears: hearing grossly normal bilaterally Eyes General: appearance normal, both eyes and all related structures Neck Neck: Yes normal visual inspection and Yes trachea midline Chest Chest palpation & inspection: normal inspection of the chest Resp Effort & Inspection: normal respiratory effort and able to speak in complete sentences Cardio Rate: regular rate GI Inspection: Yes normal to inspection General: Yes no CVA tenderness Back/Spine/Pelvis Back: no CVA tenderness Skin General skin exam: no rashes or lesions noted Neuro General: patient oriented x3 Extrem General: Yes normal to inspection Psych Appearance: grossly normal and well kempt Mental Status: mental status grossly normal Speech and movement: Normal speech and movement present and Clear speech present Affect: normal affect Attitude: cooperative Thought process: Normal thought process present Thought content: Normal thought content present Insight: Fair insight present (Psych) Judgement: Fair judgement present (Psych) Results AMB Urinalysis, Automated UA Leukoctes 0 Lexi/uL Last Edit by [employer] on 02/25/24 09:48 UA Nitrite Last Edit by [employer] on 02/25/24 09:48 UA Urobilinogen 0.2 mg/dL Last Edit by [employer] on 02/25/24 09:48 UA Protein 0 mg/dL Last Edit by [employer] on 02/25/24 09:48 UA pH 8.0 Last Edit by [employer] on 02/25/24 09:48 UA Blood 0 Keo/uL Last Edit by [employer] on 02/25/24 09:48 UA Specific [place] 1.010 Last Edit by [employer] on 02/25/24 09:48 UA Ketone Last Edit by [employer] on 02/25/24 09:48 UA Bilirubin 0 mg/dL Last Edit by [employer] on 02/25/24 09:48 UA Glucose 0 mg/dL Last Edit by [employer] on 02/25/24 09:48 Results Reviewed Results Reviewed: Laboratory Last Values Urine pH (Auto) 8.0 02/25/24 09:37 Specific [place] (Auto) 1.010 02/25/24 09:37 Urine Protein (Auto) 0 mg/dL 02/25/24 09:37 Glucose (UA)(Auto) 0 mg/dL 02/25/24 09:37 Urine Blood (Auto) 0 Keo/uL 02/25/24 09:37 Urine Bilirubin (Auto) 0 mg/dL 02/25/24 09:37 Urine Urobilinogen (Auto) 0.2 mg/dL 02/25/24 09:37 Leukocyte Esterase (Auto) 0 Lexi/uL 02/25/24 09:37 Date of Service: 02/17/24 EXAMINATION: US RETROPERITONEAL COMPLETE (RENAL) FINDINGS: RIGHT KIDNEY: 12.6 x 4.8 x 6.4 cm (SAG x AP x TRV). The kidney is normal in size, contour, and echogenicity. Renal cortical thickness is normal. No focal parenchymal lesions. There is a 3 mm mid renal echogenic focus seen consistent with a nonobstructing calculus. No hydronephrosis. LEFT KIDNEY: 12.8 x 5.6 x 7.0 cm (SAG x AP x TRV). The kidney is normal in size, contour, and echogenicity. Renal cortical thickness is normal. Although the database marketing manager had the impression that hydronephrosis was present, I suspect that the findings are secondary to parapelvic cysts rather than obstructive hydronephrosis. There is a complex cyst with debris near the upper pole measuring 5.8 x 5.6 x 5.5 cm along with some other probable parapelvic cysts. Echogenic focus at the lower pole measuring 1.1 cm consistent with a nonobstructing calculus. BLADDER: Well distended and normal. Bilateral ureteral jets are demonstrated. Prevoid IMPRESSION: 1. Bilateral nonobstructing renal calculi. 2. Left-sided renal cysts. 3. Parapelvic cyst versus hydronephrosis on the left although I suspect that hydronephrosis is not present. CT urography could always be performed for further evaluation. Assessment & Plan Assessment & Plan (1) Renal cyst: Comment: Left renal cyst 4.5 cm Code(s): N28.1 - Cyst of kidney, acquired Category: Medical Plan In office urinalysis results reviewed with the patient today; as noted above. Recent imaging results reviewed with the patient today; as noted above; stable when compared to previous imaging Patient denies any bothersome urinary issues or concerns at this time. Discussed, educated, encouraged on the importance of drinking plenty of water daily. Discussed at length importance of managing diabetes for overall health and well- being. Will obtain renal ultrasound in 1 year. Follow-up in 1 year with imaging to be completed prior; or sooner with any issues, concerns, and or questions. Orders: Orders AMB Urinalysis Automated 02/25/24 Z13.9 - Encounter for screening, unspecified US renal BI 1 Year N20.0 - Calculus of kidney, N28.1 - Cyst of kidney, acquired Patient Instructions: The patient had an opportunity to ask questions regarding the treatment plan. All questions were answered. Physical exam, labs, and imaging were discussed and reviewed in detail. As well as risks, benefits, and discussion of treatment choices. No major barriers to understanding were identified. The patient expressed understanding and agreement with the above treatment plan. The patient was made aware they should contact our office by phone for worsening of their current condition, the appearance of new symptoms, or with any questions or concerns. Compliance is encouraged with any medications and follow up testing that is ordered. It is a privilege to be allowed the opportunity to participate in? your urological care.? Again, if you have any questions or concerns If you have any questions or concerns please do not hesitate to contact me. The office is [phone]. This note is constructed using voice recognition software. While every effort has been made to ensure accuracy glass bender errors may have been included. Yours sincerely, MATEUSZ Balderas Coding Level of Care Code Est Pt Level 3 (59792) Diagnoses Renal cyst N28.1
== END 2024-02-25 10:02 | disposition home or self-care (01) ==
PROVIDERS: PCP Internal Medicine; Visit Provider Nurse Practitioner Family
DX: N28.1 Cyst of kidney, acquired (principal)
CPT/HCPCS: 99213

== ENCOUNTER → 2024-02-25 09:27 | Outpatient (BNVA) | payer OTHER, SELFPAY | PROVIDERS: PCP Internal Medicine; Visit Provider Nurse Practitioner Family | DX: N28.1 Cyst of kidney, acquired (principal); N20.0 Calculus of kidney; Z71.2 Person consulting for explanation of examination or test findings | CPT/HCPCS: 81003; 99212 ==

== ENCOUNTER 2024-03-02 11:58 | Outpatient (AMB) | payer OTHER, SELFPAY ==
--- NOTE | 2024-03-02 13:02 | AM.OFFWIN_ITS ---
Intake Vital Signs 03/02/24 13:05 Height 5 ft 4 in Weight 243 lb BMI 41.7 BP 118/66 Blood Pressure Location Rt radial Position Sitting Pulse 84 Pulse Source Pulse Oximeter Temp 98.1 F Temp Source Oral Pulse Oximetry (%) 98 Oxygen Delivery Method Room Air Intake Visit Reasons: EP-lt hand mid finger swollen, lt elbow, leg pain Intake Note: pt c/o LT middle finger swelling started Friday, left elbow pain Started 2 weeks ago, and LT leg pain started a month ago. Patient Tobacco Use Status: Never used Tobacco Allergies meclizine Adverse Reaction (Verified 03/02/24 13:03) tachycardia metoclopramide Adverse Reaction (Verified 03/02/24 13:03) tachycardia Do you need a note to return to daycare/school/sports/work: No HPI HPI Comments History of Present Illness Details Patient is a 48-year-old female complaining of left 3rd finger tenderness and swelling for 4 days. She says that she can not move her finger because it is so painful and the pain radiates up her arm. She has not taken anything to try to make it better but she does have her finger in a finger brace to rest it. She denies any trauma to the area. [facility] Medical History Overactive bladder Diarrhea Morbid obesity with BMI of 40.0-44.9, adult Biliary dyskinesia Elevated TSH Obesity (BMI 30-39.9) Depression Anxiety Insomnia Obstructive sleep apnea Vitamin D deficiency 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 myelopathy or radiculopathy Elevated LFTs Allergic rhinitis Asthma Migraine Pure hypercholesterolemia Benign essential hypertension Diabetes mellitus IBS (irritable bowel syndrome) Gastroparesis Surgical History Status post epidural steroid injection History of cardiac cath Hx of tubal ligation Hx of colonoscopy (~03/2018) Hx of endoscopy History of surgery of head Hx of hysterectomy (~08/2011) Family History Father Diabetes Hypertension Heart problem Mother Arthritis Diabetes Hypertension Maternal Grandmother Breast cancer, Onset Age: 72 Family/Other Diabetes Hypertension Heart problem Social History Household Members: Spouse Housing: House Are you a primary respiratory care assistant to a significant other at home: No Do you presently have visiting nurse or other home services: No Alcohol intake: current Alcohol intake frequency: does not drink Comment: NOT INDICATED Patient Tobacco Use Status: Never used Tobacco e-Cigarette/Vaping Use: Never Used Second Hand Smoke Exposure: No Advance Directives Date on File: 03/20/16 service: No Current occupational status: disabled Cognitive needs: No Hearing needs: No Vision needs: Yes Female Reproductive History Menstrual Age of Menarche: 13 Review of Systems Const All systems reviewed & are unremarkable except as noted in HPI and below Physical Exam Vital Signs: Last Vital Signs Temp 98.1 F 03/02/24 13:05 Pulse 84 03/02/24 13:05 BP 118/66 03/02/24 13:05 Pulse Ox 98 03/02/24 13:05 Oxygen Delivery Method Room Air 03/02/24 13:05 BMI result Body Mass Index 41.7 Const General: cooperative, healthy appearing, comfortable and no acute distress Orientation/consciousness: patient oriented x3 Limitations: no limitations HEENT Head: Yes normal to inspection Resp Effort & Inspection: normal respiratory effort and able to speak in complete sentences Neuro General: patient oriented x3 Extrem Left upper extremity: hand (Third digit has swelling with erythema and tenderness to palpation, NVI) Details: abnormal ROM of finger (Secondary to pain, 3rd digit) Details: pain with active ROM and pain with passive ROM Assessment & Plan Assessment & Plan (1) Paronychia of finger of left hand: Code(s): L03.012 - Cellulitis of left finger Plan: Recommended soaking it several times a day in warm water and explained how to help the infection work its way out. Recommended if it does no pop on its own, she can come back and we can [place] it. Plan see above Coding Level of Care Code Est Pt Level 3 (21902) Diagnoses Paronychia of finger of left hand L03.012
[2024-03-02 13:05] VITALS: BP 118/66; PULSE 84; TEMP 36.7; O2SAT 98; BMI 41.7
== END 2024-03-02 13:47 | disposition home or self-care (01) ==
PROVIDERS: PCP Internal Medicine; Visit Provider Physician Assistant
DX: L03.012 Cellulitis of left finger (principal)
CPT/HCPCS: 99213

== ENCOUNTER 2024-03-31 09:54 | Outpatient (AMB) | payer OTHER, SELFPAY ==
--- NOTE | 2024-03-31 10:04 | A.OFFVIS_ITS ---
Intake Visit Reasons: [facility]- Left Knee pain, old tear of MCL, possible inj Intake Note: Ute a 48 year old female who presents today for a new patient evaluation of left knee pain. Patient reports constant pain that has been present for about 2 months. Her pain is located at the anterior aspect of knee and radiates down to her ankle as well as a tingling sensation. Denies injury. Finds little relief with Tylenol. No previous tx. Customer Leader Required: Yes Customer Leader Services: Customer Leader Present Customer Leader Name: Christen ID#[id number] Allergies meclizine Adverse Reaction (Verified 03/31/24 10:06) tachycardia metoclopramide Adverse Reaction (Verified 03/31/24 10:06) tachycardia HPI HPI [facility]- Left Knee pain, old tear of MCL, possible inj: Details: 48-year-old female who presents to the office today for an evaluation of left knee pain for about 2 months. She denies any previous knee injury. She currently states she has pain in her left knee that radiates from the anterior aspect of her knee down to her ankle. Her pain is aggravated with twisting and stair use. She also experiences tingling in her knee. She finds mild relief with Tylenol. She has not had any treatment in the past. She has a history of diabetes. Her most recent sugar level was 160. [facility] Medical History Overactive bladder Diarrhea Morbid obesity with BMI of 40.0-44.9, adult Biliary dyskinesia Elevated TSH Obesity (BMI 30-39.9) Depression Anxiety Insomnia Obstructive sleep apnea Vitamin D deficiency 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 myelopathy or radiculopathy Elevated LFTs Allergic rhinitis Asthma Migraine Pure hypercholesterolemia Benign essential hypertension Diabetes mellitus IBS (irritable bowel syndrome) Gastroparesis Surgical History Status post epidural steroid injection History of cardiac cath Hx of tubal ligation Hx of colonoscopy (~03/2018) Hx of endoscopy History of surgery of head Hx of hysterectomy (~08/2011) Family History Father Diabetes Hypertension Heart problem Mother Arthritis Diabetes Hypertension Maternal Grandmother Breast cancer, Onset Age: 72 Family/Other Diabetes Hypertension Heart problem Social History Household Members: Spouse Housing: House Are you a primary manager care to a significant other at home: No Do you presently have visiting nurse or other home services: No Alcohol intake: current Alcohol intake frequency: does not drink Comment: NOT INDICATED Patient Tobacco Use Status: Never used Tobacco e-Cigarette/Vaping Use: Never Used Second Hand Smoke Exposure: No Advance Directives Date on File: 03/20/16 service: No Current occupational status: disabled Cognitive needs: No Hearing needs: No Vision needs: Yes Female Reproductive History Menstrual Age of Menarche: 13 Review of Systems Const All systems reviewed & are unremarkable except as noted in HPI and below Physical Exam Const General: cooperative, healthy appearing, comfortable, no acute distress, well developed and alert Orientation/consciousness: patient oriented x3 HEENT Head: Yes normal to inspection, Yes normocephalic and Yes atraumatic Eyes General: appearance normal, both eyes and all related structures Resp Effort & Inspection: normal respiratory effort and able to speak in complete sentences Cardio Rate: regular rate Peripheral pulses: Peripheral pulses 2+ throughout GI Palpation (GI): Soft to palpation Skin Lesions: no lesions Rashes: no rashes Neuro General: patient oriented x3 Extrem Other: Left knee: Skin intact, no erythema or joint effusion. Lateral retropatellar tenderness present. Full ROM with crepitus. Negative Rowdy?s. No ligamentous laxity. NVI. ? Office Procedures Joint Injection/Aspiration Joint Injection/Aspiration Primary Site: left knee Prep: site was prepped using aseptic technique, ethochloride spray was applied and injection warnings given Injected: 80 mg of, DepoMedrol, with 8 mL of, 1% plain lidocaine and in the joint Approach Used: anterolateral Procedure: The patient tolerated the procedure well and there was some relief with the local anesthesia Coding 08707 - Glenohumeral/Tronchanteric Bursa/Intraarticular Procedure code (CPT) selection complete Results Reviewed Results Reviewed: xray of the left knee from 01/23/24 negative for acute fracture or dislocations PF oa present Assessment & Plan Assessment & Plan (1) Patellofemoral arthritis of left knee: Code(s): M17.12 - Unilateral primary osteoarthritis, left knee Category: Medical Plan We discussed options today, which include steroid injection. The patient did consent to move forward with the left knee injection, which was tolerated well. I recommended rest, ice, and elevation and OTC anti-inflammatories as needed for discomfort. She was also given a course of physical therapy in the office today. We also discussed diabetes and the effect the steroid injection can have on their blood glucose levels; therefore, they will continue to monitor these very closely over the next 72 hours. If there are concerns, they should report to the ED immediately. Orders: Orders PT Evaluation and Treatment Today M17.12 - Unilateral primary osteoarthritis, left knee Patient Instructions: Scribed for Ramy Daniel PA-C, by Lupillo Perales adjunct faculty for medical terminology, on 03/31/2024 at 10:00 AM EST.? I, Ramy Daniel PA-C, have personally reviewed and agree with the information entered by the scribe. Coding Level of Care Code New Pt Level 3 (11838) Complex EM visit Add On G2211 Diagnoses Patellofemoral arthritis of left knee M17.12 CPT Codes Coding - Joint 7: 91167 - Glenohumeral/Tronchanteric Bursa/Intraarticular ([id number])
== END 2024-03-31 10:43 | disposition home or self-care (01) ==
PROVIDERS: PCP Internal Medicine; Visit Provider Physician Assistant
DX: M17.12 Unilateral primary osteoarthritis, left knee (principal)
CPT/HCPCS: 20610; 99203

== ENCOUNTER → 2024-03-31 09:54 | Outpatient (REF) | payer OTHER, SELFPAY ==
--- NOTE | 2024-03-31 12:14 | ECG_ITS ---
Test Reason : Z79.899 Blood Pressure : / mmHG Vent. Rate : 070 BPM Atrial Rate : 070 BPM P-R Int : 162 ms QRS Dur : 080 ms QT Int : 412 ms P-R-T Axes : 007 -02 017 degrees QTc Int : 444 ms Normal sinus rhythm Normal ECG When compared with ECG of 17-MAR-2019 10:07, No significant change was found Referred By: Natasha Tobar Electronically Signed By:MITCHELL MCGEE
== END ==
LOC: HO.CARD 09:54
PROVIDERS: Absent Provider Nurse Practitioner Family; PCP Internal Medicine; Visit Provider Physician Assistant
DX: Z79.899 Other long term (current) drug therapy (principal); M17.12 Unilateral primary osteoarthritis, left knee
CPT/HCPCS: 20610; 93005; 99202; J1010; J2003

== ENCOUNTER 2024-04-13 14:25 | Outpatient (REF) | payer OTHER, SELFPAY ==
[2024-04-13 16:48] LABS: Appearance Urine Clear; Color Urine Yellow; Glucose Urine UA 100 mg/dL (Negative); Leukocyte Esterase Urine Negative (Negative); Nitrite Urine Negative (Negative); Specific Gravity - Urine <= 1.005 (1.005-1.025); Urine Blood Negative (Negative); Urine Ketones Negative (Negative); Urine Protein Negative (Neg-Trace)
== END 2024-04-13 14:26 | disposition home or self-care (01) ==
LOC: HO.HMGCLDS 14:25
PROVIDERS: PCP Internal Medicine; Visit Provider Internal Medicine
DX: R39.9 Unspecified symptoms and signs involving the genitourinary system (principal)
CPT/HCPCS: 81003

== ENCOUNTER 2024-04-14 10:18 | Outpatient (AMB) | payer OTHER, SELFPAY ==
[2024-04-14 10:39] VITALS: BP 116/70; BMI 41.6
--- NOTE | 2024-04-14 10:39 | MHC.OFFVIS ---
Vital Signs 04/14/24 10:39 Height 5 ft 4 in Weight 242 lb 8.136 oz BMI 41.6 BP 116/70 Intake Visit Reasons: vaginal lump Automatic Presser Required: Yes Automatic Presser Language: Back Facer Services: Automatic Presser Present (in person) Automatic Presser Name: Melonie HERNDON Information Interpreted: non-clinical & clinical Wind Turbine Installer: Wind Turbine Installer Present (Melonie HERNDON) Accompanied by: Self / Same As Patient Allergies meclizine Adverse Reaction (Verified 04/14/24 10:53) tachycardia metoclopramide Adverse Reaction (Verified 04/14/24 10:53) tachycardia HPI Comments Details: Presenting complaining of a left vulvar lump that appeared few days ago and is painful with no associated drainage or discharge PFSH Medical History Overactive bladder Diarrhea Morbid obesity with BMI of 40.0-44.9, adult Biliary dyskinesia Elevated TSH Obesity (BMI 30-39.9) Depression Anxiety Insomnia Obstructive sleep apnea Vitamin D deficiency 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 myelopathy or radiculopathy Elevated LFTs Allergic rhinitis Asthma Migraine Pure hypercholesterolemia Benign essential hypertension Diabetes mellitus IBS (irritable bowel syndrome) Gastroparesis Surgical History Status post epidural steroid injection History of cardiac cath Hx of tubal ligation Hx of colonoscopy (~03/2018) Hx of endoscopy History of surgery of head Hx of hysterectomy (~08/2011) Family History Father Diabetes Hypertension Heart problem Mother Arthritis Diabetes Hypertension Maternal Grandmother Breast cancer, Onset Age: 72 Family/Other Diabetes Hypertension Heart problem Social History Household Members: Spouse Housing: House Are you a primary primary care nurse to a significant other at home: No Do you presently have visiting nurse or other home services: No Alcohol intake: current Alcohol intake frequency: does not drink Comment: NOT INDICATED Patient Tobacco Use Status: Never used Tobacco e-Cigarette/Vaping Use: Never Used Second Hand Smoke Exposure: No Advance Directives Date on File: 03/20/16 service: No Current occupational status: disabled Cognitive needs: No Hearing needs: No Vision needs: Yes Female Reproductive History Menstrual Age of Menarche: 13 Review of Systems Const All systems reviewed & are unremarkable except as noted in HPI and below Physical Exam Vital Signs: Last Vital Signs BP 116/70 04/14/24 10:39 BMI result Body Mass Index 41.6 General: Yes no CVA tenderness External Female Exam: normal appearance of the urethra and other (Left upper labia minora/periclitoral 2 cm lump) Speculum Exam - Vagina: normal appearance of the vagina, normal palpation, no lesions and no masses Speculum Exam - Cervix: normal appearance of the cervix, normal palpation, no lesions, no masses and nontender Bimanual exam- vagina & uterus: normal bimanual exam, normal palpation, uterine size normal, normal palpation, uterine shape normal, No Cervical tenderness present and non-tender Bimanual Exam- Adnexa, other: normal adnexae Back/Spine/Pelvis Back: no CVA tenderness Office Procedures Incision/Drainage AGRICULTURAL COMMODITIES INSPECTOR Incision/Drainage AGRICULTURAL COMMODITIES INSPECTOR Details: Before the procedure was started d/w patient the procedure, alternatives (do nothing, medical rx), & all the risks associated with the procedure ( bleeding , infection, vulvar scarring, painful intercourse, injury to vessels, possible need for transfusion with all its risks) then patient signed the consent. Preoperative diagnosis: Left upper labia minora cyst. Operation: Left upper labia minora cyst needs aspiration Post-operative diagnosis: Same Anesthesia: Lidocaine 1% 3cc used Procedure: The skin was prepped with Betadine, palpation was used for guidance, using 25 gauge needle and a 5 cc syringe the left upper labial cyst was aspirated. This yielded 2 cc of clear fluid & substantially decompressed the swelling, a clean dressing was used at the end. The patient tolerated the procedure well. The patient was sent home in stable condition. Discharge Instructions: The patient was instructed to call if temp>100.4, abdominal pain, nausea/vomiting. This note was generated with a voice recognition program. Some errors may have been overlooked during the review of this note. Sometimes these errors may affect the content or meaning of a given sentence. 17400-J&D of vulva/perineum All charges added?: Procedure code (CPT) selection complete Assessment & Plan Assessment & Plan (1) Labial cyst: Comment: Left upper labia minor Code(s): N90.7 - Vulvar cyst Category: Medical Plan: Discussed with the patient the finding on pelvic exam showing a left upper labia minora cyst recommended attempt at aspiration to confirm that see cyst versus lump. Left upper labia minora Cyst aspiration was done , see procedure note Instructions given to the patient to call in case of any of the following occurs, vulvar pain , erythema or drainage and in case of recurrence of the cyst. All questions answered, the patient verbalized understanding Orders: Orders Incision & Drainage AGRICULTURAL COMMODITIES INSPECTOR Today N90.7 - Vulvar cyst Coding Level of Care Code Est Pt Level 3 (65847) Procedure Only Diagnoses Labial cyst N90.7 CPT Codes Incision/Drainage AGRICULTURAL COMMODITIES INSPECTOR - IDGYN 1: 40145-R&D of vulva/perineum ([id number]) Comment Needle Aspiration left labial cyst done not I&D
== END 2024-04-14 11:04 | disposition home or self-care (01) ==
LOC: HO.HWS 10:18
PROVIDERS: PCP Internal Medicine; Visit Provider Obstetrics & Gynecology
DX: N90.7 Vulvar cyst (principal)
CPT/HCPCS: 56405; 99213

== ENCOUNTER → 2024-04-14 10:18 | Outpatient (BNVA) | payer OTHER, SELFPAY | PROVIDERS: PCP Internal Medicine; Visit Provider Obstetrics & Gynecology | DX: N90.7 Vulvar cyst (principal) | CPT/HCPCS: 56405; 99212 ==

== ENCOUNTER 2024-04-19 09:09 | Outpatient (AMB) | payer OTHER, SELFPAY ==
--- NOTE | 2024-04-19 09:21 | A.OFFVIS_ITS ---
Vital Signs 04/19/24 09:27 Height 5 ft 4 in Weight 242 lb 8.136 oz BMI 41.6 Intake Visit Reasons: I&D Cnc Programmer Required: Yes Cnc Programmer Language: Final Touch Up Painter Services: Cnc Programmer Present (in person) Cnc Programmer Name: Melonie HERNDON Information Interpreted: non-clinical & clinical Inspector Sheet Metal Parts: Inspector Sheet Metal Parts Present (Melonie HERNDON) Accompanied by: Self / Same As Patient Allergies meclizine Adverse Reaction (Verified 04/19/24 09:28) tachycardia metoclopramide Adverse Reaction (Verified 04/19/24 09:28) tachycardia Is last menstrual period known: Yes (2 months ago) HPI Comments Details: Presenting with recurrent for left tender labial cyst after aspiration few days ago no fever or chills no redness or discharge PFSH Medical History Overactive bladder Diarrhea Morbid obesity with BMI of 40.0-44.9, adult Biliary dyskinesia Elevated TSH Obesity (BMI 30-39.9) Depression Anxiety Insomnia Obstructive sleep apnea Vitamin D deficiency 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 myelopathy or radiculopathy Elevated LFTs Allergic rhinitis Asthma Migraine Pure hypercholesterolemia Benign essential hypertension Diabetes mellitus IBS (irritable bowel syndrome) Gastroparesis Surgical History Status post epidural steroid injection History of cardiac cath Hx of tubal ligation Hx of colonoscopy (~03/2018) Hx of endoscopy History of surgery of head Hx of hysterectomy (~08/2011) Family History Father Diabetes Hypertension Heart problem Mother Arthritis Diabetes Hypertension Maternal Grandmother Breast cancer, Onset Age: 72 Family/Other Diabetes Hypertension Heart problem Social History Household Members: Spouse Housing: House Are you a primary healthcare representative to a significant other at home: No Do you presently have visiting nurse or other home services: No Alcohol intake: current Alcohol intake frequency: does not drink Comment: NOT INDICATED Patient Tobacco Use Status: Never used Tobacco e-Cigarette/Vaping Use: Never Used Second Hand Smoke Exposure: No Advance Directives Date on File: 03/20/16 service: No Current occupational status: disabled Cognitive needs: No Hearing needs: No Vision needs: Yes Female Reproductive History Menstrual Age of Menarche: 13 control method: permanent sterilization Review of Systems Const All systems reviewed & are unremarkable except as noted in HPI and below Physical Exam Vital Signs: BMI result Body Mass Index 41.6 General: Yes no CVA tenderness External Female Exam: normal appearance of the urethra and other (Left upper labia cyst) Speculum Exam - Vagina: normal appearance of the vagina, normal palpation, no lesions and no masses Speculum Exam - Cervix: normal appearance of the cervix, normal palpation, no lesions, no masses and nontender Bimanual exam- vagina & uterus: normal bimanual exam, normal palpation, uterine size normal, normal palpation, uterine shape normal, No Cervical tenderness present and non-tender Bimanual Exam- Adnexa, other: normal adnexae Back/Spine/Pelvis Back: no CVA tenderness Office Procedures Incision/Drainage ROOFER ASSISTANT Incision/Drainage ROOFER ASSISTANT Details: Before the procedure was started d/w patient the procedure, alternatives (do nothing, medical rx), & all the risks associated with the procedure ( bleeding , infection, vulvar scarring, painful intercourse, injury to vessels, possible need for transfusion with all its risks) then patient signed the consent. Preoperative diagnosis: Left upper labia minora recurrent cyst Operation: Left upper labia minora recurrent cyst I & D Post-operative diagnosis: Same Anesthesia: Lidocaine 1% 3cc used Procedure: The skin was prepped with Betadine, palpation was used for guidance, 11-blade was used to incise the skin contiguous with the abscess cavity. This yielded 2 cc of clear fluid & substantially decompressed the swelling, a clean dressing was used at the end. The patient tolerated the procedure well. The patient was sent home in stable condition. Discharge Instructions: The patient was instructed to call if temp>100.4, abdominal pain, nausea/vomiting. This note was generated with a voice recognition program. Some errors may have been overlooked during the review of this note. Sometimes these errors may affect the content or meaning of a given sentence. 89341-F&D of vulva/perineum All charges added?: Procedure code (CPT) selection complete Assessment & Plan Assessment & Plan (1) Labial cyst: Comment: Left upper labia minora Code(s): N90.7 - Vulvar cyst Category: Medical Plan: Discussed with the patient the finding on pelvic exam showing a left upper labia minora cyst, recommended I&D. Procedure done, see note Instructions given the patient to call in case of pain, temperature above 100.4, redness, discharge or change in the color of the skin at the site of the incision and to schedule an appointment for follow-up 2 weeks Orders: Orders Incision & Drainage ROOFER ASSISTANT Today N90.7 - Vulvar cyst Coding Level of Care Code Procedure Only Diagnoses Labial cyst N90.7 CPT Codes Incision/Drainage ROOFER ASSISTANT - IDGYN 1: 74760-N&D of vulva/perineum ([id number])
[2024-04-19 09:27] VITALS: BMI 41.6
== END 2024-04-19 10:16 | disposition home or self-care (01) ==
LOC: HO.HWS 09:09
PROVIDERS: PCP Internal Medicine; Visit Provider Obstetrics & Gynecology
DX: N90.7 Vulvar cyst (principal)
CPT/HCPCS: 56405

== ENCOUNTER → 2024-04-19 09:09 | Outpatient (BNVA) | payer OTHER, SELFPAY | PROVIDERS: PCP Internal Medicine; Visit Provider Obstetrics & Gynecology | DX: N90.7 Vulvar cyst (principal) | CPT/HCPCS: 56405 ==

== ENCOUNTER 2024-05-07 09:26 | Outpatient (REF) | payer OTHER, SELFPAY ==
[2024-05-07 13:14] LABS: MANUAL DIFF FLAG NO
[2024-05-07 13:17] LABS: Basophils Percent Auto 0.5 % (0-2); Eosinophils Absolute Auto 0.1 X10*3/uL (0.0-0.4); Eosinophils Percent Auto 1.5 % (0-4); Hematocrit 38.4 % (37.0-47.0); Hemoglobin 11.9 g/dl (12.0-16.0); Imm Gran Abs Auto 0.03 X10*3/uL (0.00-0.03); Imm Gran Pct Auto 0.5 % (0.0-0.4); Lymphocytes Absolute Auto 1.8 X10*3/uL (1.2-4.9); Lymphocytes Percent Auto 29.3 % (20-40); Mean Corpuscular Hemoglobin 29.5 pg (27.0-33.0); Mean Corpuscular Volume 95.3 fL (80.0-98.0); Mean Platelet Volume 10.9 fL (9.4-12.3); Monocytes Absolute Auto 0.5 X10*3/uL (0.1-1.2); Monocytes Percent Auto 7.4 % (2-11); Neutrophils Absolute Auto 3.7 x10*3/uL (2.0-8.3); Neutrophils Percent Auto 60.8 % (45-73); Platelet Count 282 X10*3/uL (160-400); Red Blood Count 4.03 X10*6/uL (4.20-5.50); Red Cell Distribution Width 14.2 % (11.0-16.0); White Blood Count 6.1 X10*3/uL (4.8-10.8)
[2024-05-07 13:32] LABS: Estimated Average Glucose 163 mg/dL; Hemoglobin A1C 181.3825 umol/L; Hemoglobin A1c % 7.3 % (<6.0); Total Hemoglobin (HGBA1C) 3249.8642 umol/L
[2024-05-07 13:37] LABS: Appearance Urine Clear; Color Urine Yellow; Glucose Urine UA Negative (Negative); Leukocyte Esterase Urine Negative (Negative); Nitrite Urine Negative (Negative); Urine Blood Negative (Negative); Urine Ketones Negative (Negative); Urine Protein Negative (Neg-Trace)
[2024-05-07 13:42] LABS: Anion Gap 14 (12-20)
[2024-05-07 13:47] LABS: Alanine Aminotransferase 14 U/L (0-31); Albumin Level 4.1 g/dL (3.5-5.0); Alkaline Phosphatase 78 U/L (39-117); Aspartate Amino Transferase 20 U/L (5-31); Bilirubin Total 0.2 mg/dL (0.0-1.0); Blood Urea Nitrogen 10 mg/dL (9-16); Calcium 9.7 mg/dL (8.4-10.2); Carbon Dioxide 22 mmol/L (22-29); Chloride 108 mmol/L (96-108); Cholesterol 161 mg/dL (<200); Estimated Glomerular Filt Rate > 60; Glucose Fasting 163 mg/dL (60-99); HDL Cholesterol 54 mg/dL (>40); LDL Cholesterol Calculated 65 mg/dL (<100); Sodium 140 mmol/L (135-145); Total Protein 7.2 g/dL (6.5-8.0); Triglycerides 213 mg/dL (<150)
[2024-05-07 14:10] LABS: Vitamin B12 363 pg/mL (200-900)
[2024-05-07 14:26] LABS: Creatinine Urine 59.72 mg/dL; Microalbumin Urine < 5.0 mg/L
[2024-05-07 14:37] LABS: TSH reflex Free T4 1.57 uIU/mL (0.32-4.0); Vitamin D 25-OH Total 43.3 ng/mL (>30)
== END 2024-05-07 09:27 | disposition home or self-care (01) ==
LOC: HO.HMGCLDS 09:26
PROVIDERS: PCP Internal Medicine; Visit Provider Internal Medicine
DX: D64.9 Anemia, unspecified (principal); E78.00 Pure hypercholesterolemia, unspecified; E11.9 Type 2 diabetes mellitus without complications; E53.8 Deficiency of other specified B group vitamins; R30.0 Dysuria; E55.9 Vitamin D deficiency, unspecified
CPT/HCPCS: 36415; 80053; 80061; 81003; 82043; 82306; 82570; 82607; 82746; 83036; 84443; 85025

== ENCOUNTER 2024-05-18 15:00 | Outpatient (AMB) | payer OTHER, SELFPAY ==
--- NOTE | 2024-05-18 15:04 | MHC.OFFVIS ---
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 The patient is doing well with no complaints PFSH Medical History Overactive bladder Diarrhea Morbid obesity with BMI of 40.0-44.9, adult Biliary dyskinesia Elevated TSH Obesity (BMI 30-39.9) Depression Anxiety Insomnia Obstructive sleep apnea Vitamin D deficiency 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 myelopathy or radiculopathy Elevated LFTs Allergic rhinitis Asthma Migraine Pure hypercholesterolemia Benign essential hypertension Diabetes mellitus IBS (irritable bowel syndrome) Gastroparesis Surgical History Status post epidural steroid injection History of cardiac cath Hx of tubal ligation Hx of colonoscopy (~03/2018) Hx of endoscopy History of surgery of head Hx of hysterectomy (~08/2011) Family History Father Diabetes Hypertension Heart problem Mother Arthritis Diabetes Hypertension Maternal Grandmother Breast cancer, Onset Age: 72 Family/Other Diabetes Hypertension Heart problem Social History Household Members: Spouse Housing: House Are you a primary caregiver services home to a significant other at home: No Do you presently have visiting nurse or other home services: No Alcohol intake: current Alcohol intake frequency: does not drink Comment: NOT INDICATED Patient Tobacco Use Status: Never used Tobacco e-Cigarette/Vaping Use: Never Used Second Hand Smoke Exposure: No Advance Directives Date on File: 03/20/16 service: No Current occupational status: disabled Cognitive needs: No Hearing needs: No Vision needs: Yes Female Reproductive History Menstrual Age of Menarche: 13 Review of Systems Const All systems reviewed & are unremarkable except as noted in HPI and below Physical Exam General: Yes no CVA tenderness External Female Exam: normal external appearance and normal appearance of the urethra Speculum Exam - Vagina: normal appearance of the vagina, normal palpation, no lesions and no masses Speculum Exam - Cervix: normal appearance of the cervix, normal palpation, no lesions, no masses and nontender Bimanual exam- vagina & uterus: normal bimanual exam, normal palpation, uterine size normal, normal palpation, uterine shape normal, No Cervical tenderness present and non-tender Bimanual Exam- Adnexa, other: normal adnexae Back/Spine/Pelvis Back: no CVA tenderness Assessment & Plan Assessment & Plan (1) Labial cyst: Comment: Left upper labia minora-resolved Code(s): N90.7 - Vulvar cyst Category: Medical Plan: Discussed with the patient the findings on pelvic exam showing resolution of the left upper labia minora cyst. The patient was reassured. All questions answered, the patient verbalized understanding Coding Level of Care Code Est Pt Level 3 (82262) Diagnoses Labial cyst N90.7
== END 2024-05-18 15:40 | disposition home or self-care (01) ==
LOC: HO.HWS 15:01
PROVIDERS: PCP Internal Medicine; Visit Provider Obstetrics & Gynecology
DX: N90.7 Vulvar cyst (principal)
CPT/HCPCS: 99213

== ENCOUNTER → 2024-05-18 15:00 | Outpatient (BNVA) | payer OTHER, SELFPAY | PROVIDERS: PCP Internal Medicine; Visit Provider Obstetrics & Gynecology | DX: N90.7 Vulvar cyst (principal) | CPT/HCPCS: 99212 ==

== ENCOUNTER 2024-05-20 11:00 | Outpatient (RCR) | payer OTHER, SELFPAY ==
--- NOTE | 2024-04-26 13:54 | MHC.PT.EP ---
[facility] [place] Office [place] Office [place] Office [address] [phone] F: [phone] F: [phone] F: [phone] F: [phone] Physical Therapy Plan of Care Date of Evaluation: 04/26/24 Date of Surgery: Diagnosis: unilateral primary osteoarthritis, L knee. Assessment: Patient is a 48 year old R handed Luxem[place]ish speaking female who presents with s/s consistent with L knee primary OA, L knee pain. She does not work and lives a fairly sedentary life at this time. Patient past medical history includes back pain, knee pain, ankle pain, obesity and asthma. Current impairments include pain, balance, flexibility, ROM, strength, activity tolerance and functional mobility. Functional limitations include decreased ability to walk, stand, negotiate stairs, transfer and be active in the community. Patient is motivated with good rehab potential. Skilled PT will address impairments and functional limitations in order to achieve goals. Frequency and Duration: The patient will be seen 2x/week for 5 weeks Short Term Goals: I with HEP - 2 weeks AROM flexion to 120 - 3 weeks SLB > 10 seconds b/l - 3 weeks max pain with daily activities 4/10 - 3 weeks Extrusion Press Adjuster Goals: LEFS 40/80 - 5 weeks AROM flexion 0-126 - 5 weeks Strength 4+/5 grossly - 5 weeks Able to wlak 20 minutes without increased pain - 5 weeks Stair negotiation step through - 5 weeks Max pain with daily activities 2/10 - 5 weeks Treatment Plan: Modalities to reduce pain, spasms and effusion. Manual therapy to restore motion and function. Therapeutic exercise to improve strength and flexibility. Neuromuscular re-education for posture and balance. Therapeutic activities to return to functional activities of daily living. Electronically signed by: Don Jeronimo, PT Please sign and return to therapist. Thank you for your referral.
--- NOTE | 2024-09-17 10:59 | MHC.PT.DC ---
[facility] [place] Office [place] Office [place] Office [address] Colleen De Los Santos [address] [phone] F: [phone] F: [phone] F: [phone] F: [phone] Physical Therapy Discharge Report Diagnosis: unilateral primary osteoarthritis, L knee. Date of Surgery: Date of Evaluation: 04/26/24 Date of Discharge: 05/30/24 Treatments to Date: 8 Cancellations to Date: No Shows to Date: Discharge Status: Improved Function Independent with HEP Patient Elected to Stop Discharge Summary: 05/20/24: pt progressed well over the course of skilled PT. I with HEP. ROM goals met. SLB goals met (11 sec). LEFS 26/80. Strength 4/5 grossly. Step through with stair negotiation. She is ready for d/c and wants to continue with HEP. we will d/c to HEP At this time. 05/17/24: pt progressing well. no s/s today. we will plan to d/c to HEP NV. 05/13/24: pt progressing well with skilled PT. min s/s. compliant with HEP. 05/11/24: pt continues to respond well to program. consistently in less pain at finish compared to start. 05/05/24: pt progressing well with skilled PT. min s/s, slightly greater on L. we will progress strength Nv. 05/03/24: continued with program. pt with no pain at conclusion. continue to progress as tolerated. 04/29/24: pt progressed with strength and flex. no adverse reactions. CP to finish. min s/s at conclusion. Patient is a 48 year old R handed Barbadian speaking female who presents with s/s consistent with L knee primary OA, L knee pain. She does not work and lives a fairly sedentary life at this time. Patient past medical history includes back pain, knee pain, ankle pain, obesity and asthma. Current impairments include pain, balance, flexibility, ROM, strength, activity tolerance and functional mobility. Functional limitations include decreased ability to walk, stand, negotiate stairs, transfer and be active in the community. Patient is motivated with good rehab potential. Skilled PT will address impairments and functional limitations in order to achieve goals Electronically signed by: Don Jeronimo, PT Please sign and return to therapist. Thank you for your referral.
== END 2024-09-17 11:00 | disposition home or self-care (01) ==
LOC: HO.PTCHIC 11:00
PROVIDERS: PCP Internal Medicine; Visit Provider Physician Assistant
DX: M17.12 Unilateral primary osteoarthritis, left knee (principal)
CPT/HCPCS: 97110; 97163

== ENCOUNTER 2024-05-26 10:22 | Outpatient (AMB) | payer OTHER, SELFPAY ==
[2024-05-26 10:34] VITALS: BP 110/80; PULSE 71; O2SAT 98; BMI 39.8
--- NOTE | 2024-05-26 10:34 | MHC.PC.OV ---
Vital Signs 05/26/24 10:34 Height 5 ft 4 in Weight 232 lb BMI 39.8 BP 110/80 Blood Pressure Location Lt brachial Position Sitting Pulse 71 Pulse Source Pulse Oximeter Pulse Oximetry (%) 98 Oxygen Delivery Method Room Air Intake Visit Reasons: hyperlipidemia, DM, HTN Manufacturing Process Technician Required: No Accompanied by: Self / Same As Patient Allergies meclizine Adverse Reaction (Verified 05/26/24 11:09) tachycardia metoclopramide Adverse Reaction (Verified 05/26/24 11:09) tachycardia Medication List - Last Reconciled 05/26/24 by Villa Lr MD acetaminophen 500 mg PO Q6H PRN [ADULT PULL UPS As directed] albuterol sulfate 90 mcg/actuation (Ventolin HFA) 2 puffs inhalation QID PRN alum-mag hydroxide-simeth 400-400-40 mg/5 mL (Mylanta Maximum Strength) 10 mL PO TID PRN amitriptyline 75 mg PO DAILY atorvastatin 20 mg PO BEDTIME 90 days baclofen 10 mg PO BID PRN 30 days blood sugar diagnostic (FreeStyle Lite Strips) TEST BLOOD SUGAR DIRECTED 3 TIMES A DAY budesonide 32 mcg/actuation 2 sprays intranasal DAILY PRN cane As directed cholecalciferol (vitamin D3) 50 mcg PO DAILY 90 days clonazepam 1 mg PO TID diaper,brief,adult,disposable (Depend Easy Fit Undergarments [facility] [place]) As directed erenumab-aooe (Aimovig Autoinjector) 140 mg subcut [id number] esomeprazole magnesium 40 mg PO DAILY [FREESTYLE LITE TEST STRIPS Test blood sugar as directed 3 times a day - E11.9 -- DIABETES] FreeStyle Lite Meter (blood-glucose meter) As directed NS fremanezumab-vfrm (Ajovy) mg subcut gabapentin 300 mg PO BEDTIME lancets (FreeStyle Lancets) As directed- 3 times a day linaclotide (Linzess) 290 mcg PO QAM liraglutide (Victoza 3-Shamir) 1.2 mg (0.2 mL) subcut DAILY melatonin 6 mg PO BEDTIME metformin 500 mg PO BID 90 days methylcellulose (laxative) (Fiber Therapy (methylcellulose)) 500 mg PO BID montelukast 10 mg PO BEDTIME 90 days ondansetron 4 mg sublingual TID pen needle, diabetic (Comfort EZ Pen [place]) As directed daily pioglitazone 30 mg PO DAILY propranolol 60 mg PO BID sennosides (senna) 17.2 mg (2 x 8.6 mg) PO BEDTIME PRN sertraline 50 mg PO DAILY simethicone 180 mg PO TID terconazole 0.8% 1 appful vaginal BEDTIME 3 days topiramate 50 mg PO BID tramadol 50 mg PO TID PRN 30 days triamcinolone acetonide 1 spray intranasal DAILY ubrogepant (Ubrelvy) 100 mg PO DAILY PRN ziprasidone HCl (Geodon) 80 mg PO BID Tobacco use date assessed: 05/26/24 Dental Screening Dental Screen Date: 05/26/24 Did you have a dental visit in the last 12 months?: Yes Did you have a dental problem in the last 6 months where you did not have access to dental care?: No Was dental information given to patient?: Patient has dentist HPI hyperlipidemia, DM, HTN HPI Details Patient comes in today for her follow up visit States that she has been experiencing increased pain over both of her ankles now for the past few weeks Her previous knee pain have gradually improved with physical therapy but her ankles are now bothering her She denies any recent injury or trauma to her ankles and denies any swelling in her ankles lately She reports also increased pain in both of her wrists lately States that she feels okay otherwise She denies any headaches or dizziness Denies any chest pains, no increased SOB No nausea/vomiting, no abdominal pain No change in bowel habits noted Needs her Tramadol Rx refilled today She had her follow up labs done about 3 weeks ago - to discuss her results [facility] Medical History Overactive bladder Diarrhea Morbid obesity with BMI of 40.0-44.9, adult Biliary dyskinesia Elevated TSH Obesity (BMI 30-39.9) Depression Anxiety Insomnia Obstructive sleep apnea Vitamin D deficiency 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 myelopathy or radiculopathy Elevated LFTs Allergic rhinitis Asthma Migraine Pure hypercholesterolemia Benign essential hypertension Diabetes mellitus IBS (irritable bowel syndrome) Gastroparesis Surgical History Status post epidural steroid injection History of cardiac cath Hx of tubal ligation Hx of colonoscopy (~03/2018) Hx of endoscopy History of surgery of head Hx of hysterectomy (~08/2011) Family History Father Diabetes Hypertension Heart problem Mother Arthritis Diabetes Hypertension Maternal Grandmother Breast cancer, Onset Age: 72 Family/Other Diabetes Hypertension Heart problem Social History Household Members: Spouse Housing: House Are you a primary animal care provider to a significant other at home: No Do you presently have visiting nurse or other home services: No Alcohol intake: current Alcohol intake frequency: does not drink Comment: NOT INDICATED Patient Tobacco Use Status: Never used Tobacco e-Cigarette/Vaping Use: Never Used Second Hand Smoke Exposure: No Advance Directives Date on File: 03/20/16 service: No Current occupational status: disabled Cognitive needs: No Hearing needs: No Vision needs: Yes Female Reproductive History Menstrual Age of Menarche: 13 Questionnaire PHQ-9 Over the last 2 weeks, how often have you been bothered by any of the following problems? 1. Little interest or pleasure in doing things: not at all 2. Feeling down, depressed, or hopeless: not at all 3. Trouble falling or staying asleep, or sleeping too much: not at all 4. Feeling tired or having little energy: not at all 5. Poor appetite or overeating: not at all 6. Feeling bad about yourself - or that you are a failure or have let yourself or your family down: not at all 7. Trouble concentrating on things, such as reading the newspaper or watching television: not at all 8. Moving or speaking so slowly that other people could have noticed. Or the opposite - being so fidgety or restless that you have been moving around a lot more than usual: not at all 9. Thoughts that you would be better off or of hurting yourself in some way: not at all Total score: 0 Depression Screening Interpretation: Negative (is on Rx) Depression Screening Done: Yes 03369 - PHQ-9 Billing: Yes Source: Developed by Drs. Raymond Plunkett, Meaghan Art, Keshav Castro and colleagues, with an educational david from [employer]. Thrive Questionnaire Date Thrive assessed: 05/26/24 I am a: Patient What is your living situation today?: I have a steady place to live Within the past 12 months, did the food you bought not last and you didn't have the money to get more?: Never true Within the past 12 months, did you worry whether your food would run out before you got money to buy more?: Never true Do you have trouble paying for medicines?: No Do you have trouble getting transportation to medical appointments?: No Do you have trouble paying your heating and electricity bill?: No Do you have trouble taking care of your child, family member or friend?: No Do you have trouble with day-to-day activities such as bathing, preparing meals, shopping, managing finances, etc.?: No Are you currently unemployed and looking for a job?: No Are you interested in more education?: No Please select the resources that you would like help with: None Currently or been in a relationship where the following occur: No concerns reported THRIVE Score: 0 AUDIT C Alcohol Use Questionnaire (AUDIT-C) 1. How often do you have a drink containing alcohol?: Never 3. How often do you have six or more drinks on one occasion?: Never Total Score: 0 Score Reviewed/Action Taken: Yes FADUMO-7 AMB Questionnaire FADUMO-7 Date FADUMO - 7 assessed: 05/26/24 Feeling nervous, anxious, or on edge: 0 = Not at all Not being able to stop or control worryin = Not at all Worrying too much about different things: 0 = Not at all Trouble relaxin = Not at all Being so restless that it is hard to sit still: 0 = Not at all Becoming easily annoyed or irritable: 0 = Not at all Feeling afraid as if something awful might happen: 0 = Not at all Total FADUMO-7 score (0-4 normal; 5-9 mild; 10-14 moderate; 15-21 severe): 0 Source: Developed by Drs. Raymond Plunkett, Meaghan Art, Keshav Castro and colleagues, with an educational david from [employer]. Review of Systems Const Denies chills, Reports fatigue, Denies fever(s) and Denies headache(s) ENT Denies dysphagia, Denies dizziness, Denies otalgia, Denies headache(s), Denies neck pain, Denies odynophagia and Denies sore throat Card Denies chest pain, Denies irregular heart rhythm, Denies palpitations and Reports dyspnea on exertion (mild) Resp Denies chest congestion, Denies cough, Reports dyspnea on exertion (mild) and Denies wheezing GI Denies abdominal pain, Denies dysphagia, Denies heartburn, Denies diarrhea, Denies nausea, Denies odynophagia and Denies vomiting Denies hematuria, Denies difficulty voiding, Reports nocturia, Denies dysuria, Reports urinary incontinence and Denies urinary urgency Musc Reports back pain (over the lower back - chronic), Reports arthralgias (on and off; more recently over the right ankle and both wrists) and Denies neck pain Skin/Breast Denies rash Neuro Denies dizziness and Denies headache(s) Endo Reports fatigue and Denies palpitations Aller/Immun Denies wheezing Physical exam (Primary Care) Vital Signs: Last Vital Signs Pulse 71 05/26/24 10:34 BP 110/80 05/26/24 10:34 Pulse Ox 98 05/26/24 10:34 Oxygen Delivery Method Room Air 05/26/24 10:34 BMI result Body Mass Index 39.8 Tobacco/Smoking Status: Tobacco use Status Tobacco use date assessed 05/26/24 05/26/24 10:40 Patient Tobacco Use Status Never used Tobacco 05/26/24 10:40 e-Cigarette/Vaping Use Never Used 05/26/24 10:40 PHQ-9: PHQ-9 Score PHQ-9: Total score 0 05/26/24 11:10 Depression Screening Interpretation: Negative (is on Rx) Thrive Assessment: Date of Thrive Assessment Date Thrive assessed 05/26/24 05/26/24 10:40 Currently or been in a relationship where the following occur: No concerns reported Const General: no acute distress and alert HENMT Ears: TM's normal bilaterally and EAC's normal Throat: Yes posterior oropharynx normal and Yes tonsils normal (no TP congestion noted) Neck Neck: Yes no lymphadenopathy and Yes supple Thyroid: Thyroid normal Resp Auscultation: clear to auscultation bilaterally, no rales and no wheezes Cardio Rate: regular rate Rhythm: regular rhythm Heart sounds: no murmurs GI Palpation (GI): Soft to palpation and nontender Auscultation: normal bowel sounds General: Yes no CVA tenderness Back/Spine/Pelvis Back: no CVA tenderness Thoracic/Lumbar Spine: thoracic spinal tenderness and lumbar spinal tenderness Skin Rashes: no rashes Extrem General: Yes no clubbing, cyanosis or edema Right upper extremity: wrist Details: tenderness; no swelling Left upper extremity: wrist ((+) tenderness, especially over the dorsal aspect ) Right lower extremity: ankle Details: tenderness; no swelling Left lower extremity: knee Details: tenderness Location: of the pre-patellar area and of the infrapatellar area; no swelling Results Reviewed Results Reviewed: Laboratory Tests 05/07/24 05/07/24 10:00 10:05 WBC 6.1 Hgb 11.9 L Hct 38.4 Plt Count 282 Sodium 140 Potassium 4.0 Creatinine 0.81 Estimated GFR > 60 Fasting Glucose 163 H Hemoglobin A1c % 7.3 H Calcium 9.7 AST 20 ALT 14 Triglycerides 213 H Cholesterol 161 LDL Cholesterol, Calc 65 HDL Cholesterol 54 Vitamin B12 363 25-OH Vitamin D Total 43.3 TSH 1.57 Ur Specific [place] 1.010 Urine Protein Negative Urine Glucose (UA) Negative Urine Blood Negative Urine Nitrite Negative Ur Leukocyte Esterase Negative Coding Level of Care Code Est Pt Level 4 (62327) Complex EM visit Add On G2211 Diagnoses Bilateral wrist pain M25.531; M25.532 Left ankle pain, unspecified chronicity M25.572 Chronicity: unspecified Pure hypercholesterolemia E78.00 Type 2 diabetes mellitus without complication, without long-term current use of insulin E11.9 Diabetes mellitus type: type 2 Diabetes mellitus long term care administrator insulin use: without long-term use Diabetes mellitus complication status: without complication Benign essential hypertension I10 Migraine without status migrainosus, not intractable, unspecified migraine type G43.909 Migraine type: unspecified Status migrainosus presence: without status migrainosus Intractability: not intractable Moderate persistent asthma without complication J45.40 Asthma severity: moderate Asthma persistence: persistent Asthma complication type: uncomplicated Allergic rhinitis, unspecified seasonality, unspecified trigger J30.9 Allergic rhinitis trigger: unspecified Allergic rhinitis seasonality: unspecified Obstructive sleep apnea G47.33 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 myelopathy or radiculopathy M47.816 Chronic idiopathic constipation K59.04 Gastroesophageal reflux disease without esophagitis K21.9 Esophagitis presence: without esophagitis Biliary dyskinesia K82.8 Elevated LFTs R79.89 Vitamin D deficiency E55.9 Elevated vitamin B12 level R74.8 Overactive bladder N32.81 Insomnia, unspecified type G47.00 Insomnia type: unspecified Anxiety F41.9 Episode of recurrent major depressive disorder, unspecified depression episode severity F33.9 Depression Type: major depressive disorder Major depression recurrence: recurrent Active/Remission status: currently active Major depression episode severity: unspecified Obesity (BMI 30-39.9) E66.9 Additional Codes PHQ-9 - 46588 - PHQ-9 Billing: Yes ([id number]) Assessment & Plan Assessment & Plan (1) Bilateral wrist pain: Code(s): M25.531 - Pain in right wrist; M25.532 - Pain in left wrist Category: Medical Plan: Will send patient for x-rays of both wrists for further evaluation Will also go ahead and refer her to physical therapy for further evaluation and management of both her wrist pains and left ankle pain (2) Left ankle pain: Code(s): M25.572 - Pain in left ankle and joints of left foot Category: Medical Qualifiers: Chronicity: unspecified Qualified Code(s): M25.572 - Pain in left ankle and joints of left foot Plan: Will send her for left ankle x-rays for further evaluation Will also go ahead and refer her to physical therapy for further evaluation and management of both her wrist pains and left ankle pain (3) Pure hypercholesterolemia: Code(s): E78.00 - Pure hypercholesterolemia, unspecified Category: Medical Plan: Results of her labs done yesterday reviewed and discussed with patient She underwent coronary angiography back on 06/11/2022 after her cardiac stress testing done a few months prior came back abnormal - myocardial perfusion study revealed (+) distal lateral, apical and inferoapical ischemia Cardiac catheterization revealed completely normal coronaries with no atherosclerotic lesions Reinforced low cholesterol diet Continue Atorvastatin 20 mg QD Will recheck her labs and fasting lipids in 4 months for follow-up (4) Diabetes mellitus: Comment: taking Victoza, Metformin & Actos Code(s): E11.9 - Type 2 diabetes mellitus without complications Category: Medical Qualifiers: Diabetes mellitus type: type 2 Diabetes mellitus long term care administrator insulin use: without long term care administrator use Diabetes mellitus complication status: without complication Qualified Code(s): E11.9 - Type 2 diabetes mellitus without complications Plan: Her HgbA1c was at 7.3% on her labs done a few weeks ago (was previously at 7.4% back in October 2023) - goal is HgbA1c of < 7.0% Reinforced diabetic diet Continue Victoza 18 mg/ 3 mL 0.2 mL (1.2 mg) QD and Pioglitazone 45 mg QD Will now increase her Metformin to 1000 mg BID (5) Benign essential hypertension: Code(s): I10 - Essential (primary) hypertension Category: Medical Plan: Reinforced low sodium diet - goal is systolic BP of at least 120 to 130 mm or less Patient is reminded to continue monitoring her blood pressure regularly - patient has not needed any Rx for her BP for the past year or two now although she is on Propranolol 80 mg BID for prophylaxis Tx of her migraine headaches (6) Migraine: Code(s): G43.909 - Migraine, unspecified, not intractable, without status migrainosus Category: Medical Qualifiers: Migraine type: unspecified Status migrainosus presence: without status migrainosus Intractability: not intractable Qualified Code(s): G43.909 - Migraine, unspecified, not intractable, without status migrainosus Plan: Continue Topiramate 100 mg BID, Propranolol 60 mg BID and Fioricet 50-325 mg 1 tablet every 4-6 hours as needed Continue Ubrelvy 100 mg PRN; patient also receives Botox injection every 3 months from Neurology, and states that her migraine headaches have been well-controlled on her current Rx Follow-up with Neurology (Dr. Lieberman) every 3 months as scheduled (7) Asthma: Comment: SHE CONTINUES TO COMPLAIN OF MINIMAL SHORTNESS OF BREATH ON WALKING, BUT NO WHEEZING. PULMONARY FUNCTION TEST WAS ESSENTIALLY NORMAL. SHE MAY STILL HAVE MILD INTERMITTENT BRONCHIAL ASTHMA. I THINK SHORTNESS OF BREATH ON EXERTION IS RELATED TO HER MORBID OBESITY. Code(s): J45.909 - Unspecified asthma, uncomplicated Category: Medical Qualifiers: Asthma severity: moderate Asthma persistence: persistent Asthma complication type: uncomplicated Qualified Code(s): J45.40 - Moderate persistent asthma, uncomplicated Plan: Controlled Continue QVAR RediHaler 80 mcg 1 puff twice a day and ProAir HFA 2 puffs 4 times a day as needed (8) Allergic rhinitis: Comment: SYMPTOMS OF CHRONIC ALLERGIC RHINITIS SEEM TO BE UNDER CONTROLLED. Code(s): J30.9 - Allergic rhinitis, unspecified Category: Medical Qualifiers: Allergic rhinitis trigger: unspecified Allergic rhinitis seasonality: unspecified Qualified Code(s): J30.9 - Allergic rhinitis, unspecified Plan: Continue Montelukast 10 mg QD and Rhinocort Aqua 2 sprays to each nostril QD PRN She was on Nasacort nasal spray 1 spray to each nostril QD in the past but she stopped using it a while back as the nasal spray reportedly irritates her sinuses (9) Obstructive sleep apnea: Comment: THIS PATIENT IS KNOWN TO HAVE OBSTRUCTIVE SLEEP APNEA SINCE 2019 HAS BEEN USING CPAP REGULARLY. SHE IS BEING FOLLOWED BY AND MANAGED FOR SLEEP APNEA BY HER NEUROLOGIST. CLAIMS THAT SHE DOES USE THE CPAP EVERY NIGHT. Code(s): G47.33 - Obstructive sleep apnea (adult) (pediatric) Category: Medical Plan: Continue using her CPAP device every night when sleeping Follow up with Sleep Medicine as scheduled (10) 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 myelopathy or radiculopathy: Code(s): M47.816 - Spondylosis without myelopathy or radiculopathy, lumbar region Category: Medical Plan: Reinforced activity and weight-lifting restrictions Repeat lumbar spine x-rays done a couple of years ago showed (+) degenerative changes at L5-S1 and lower lumbar facet arthritis Lumbar spine MRI done on 09/14/2021 revealed a severe disc height loss with mild subchondral endplate edema at L5-S1. The bulging this flattens the ventral thecal sac with encroachment on the subarticular zones and abutment of both exiting L5 nerve roots Continue Tramadol 50 mg TID PRN and Gabapentin 300 mg Q HS Follow up with pain management as scheduled - gets back injections when needed with (+) relief (11) Chronic idiopathic constipation: Code(s): K59.04 - Chronic idiopathic constipation Category: Medical Plan: Reinforced increased oral fluids and dietary fiber Continue Linzess 290 mcg QD, MOM 5 ml Q HS and Fiber Laxative daily Follow up with GI as scheduled for continuing management of her chronic constipation (12) GERD (gastroesophageal reflux disease): Code(s): K21.9 - Gastro-esophageal reflux disease without esophagitis Category: Medical Qualifiers: Esophagitis presence: without esophagitis Qualified Code(s): K21.9 - Gastro-esophageal reflux disease without esophagitis Plan: Dietary restrictions reinforced Continue Esomeprazole 40 mg QD (13) Biliary dyskinesia: Code(s): K82.8 - Other specified diseases of gallbladder Category: Medical Plan: HIDA scan with CCK done in November 2020 revealed poor gallbladder emptying and low gallbladder ejection fraction consistent with impaired gallbladder contractility and suggests chronic cholecystitis Was referred to and seen by surgery last year and advised that her symptoms are more suggestive of GERD and recommended no surgery at the time but patient was advised to call if her symptoms get worse (14) Elevated LFTs: Code(s): R79.89 - Other specified abnormal findings of blood chemistry Category: Medical Plan: Improved - was most likely related to her weight (hepatosteatosis) Her LFTs on her recent labs remained normal Will continue to monitor her LFTs regularly (15) Vitamin D deficiency: Code(s): E55.9 - Vitamin D deficiency, unspecified Category: Medical Plan: Continue Vitamin D3 2000 units QD (16) Elevated vitamin B12 level: Code(s): R74.8 - Abnormal levels of other serum enzymes Category: Medical Plan: Corrected Patient was advised earlier this year that her Vitamin B12 level has been elevated significantly for a while now and she was referred to hematology for further evaluation Her work ups were all essentially normal, including flow cytometry She was advised that this was likely caused by enhanced production of haptoglobin related to her liver disease Her B12 level has since normalized and her most recent B12 level a few weeks ago remained normal Will continue to monitor her B12 level regularly (17) Overactive bladder: Code(s): N32.81 - Overactive bladder Category: Medical Plan: Follow up with urology as scheduled She uses Adult pull ups to help manage her OAB (18) Insomnia: Code(s): G47.00 - Insomnia, unspecified Category: Medical Qualifiers: Insomnia type: unspecified Qualified Code(s): G47.00 - Insomnia, unspecified Plan: Sleep hygiene reinforced Continue Zolpidem 10 mg Q HS PRN (19) Anxiety: Code(s): F41.9 - Anxiety disorder, unspecified Category: Medical Plan: Continue Clonazepam 1 mg TID PRN (20) Depression: Code(s): F32.9 - Major depressive disorder, single episode, unspecified Category: Medical Qualifiers: Depression Type: major depressive disorder Major depression recurrence: recurrent Active/Remission status: currently active Major depression episode severity: unspecified Qualified Code(s): F33.9 - Major depressive disorder, recurrent, unspecified Plan: Continue Geodon 80 mg BID, Sertraline 100 mg once a day and Amitriptyline 75 mg once a day at bedtime Follow-up with Psychiatry as scheduled (21) Obesity (BMI 30-39.9): Code(s): E66.9 - Obesity, unspecified Category: Medical Plan: Reinforced diet/exercise as tolerated /lose weight Plan Follow up in 4 months Orders: Orders XR ankle RT min 3V 05/26/24 M25.571 - Pain in right ankle and joints of right foot XR wrist RT min 3V 05/26/24 M25.531 - Pain in right wrist XR wrist LT min 3V 05/26/24 M25.532 - Pain in left wrist PT Evaluation and Treatment 05/26/24 M25.531 - Pain in right wrist, M25.532 - Pain in left wrist, M25.571 - Pain in right ankle and joints of right foot, M25.572 - Pain in left ankle and joints of left foot Complete Blood Count Auto Diff 4 Months D64.9 - Anemia, unspecified Comprehensive [place]. Panel Fast 4 Months E78.00 - Pure hypercholesterolemia, unspecified Lipid Panel 4 Months E78.00 - Pure hypercholesterolemia, unspecified Microalbumin, Random (w Creat) 4 Months E11.9 - Type 2 diabetes mellitus without complications Hemoglobin A1c 4 Months E11.9 - Type 2 diabetes mellitus without complications UA CC w/rflx Micro + Cult 4 Months R30.0 - Dysuria Medications: Changed From metformin 500 mg PO BID 90 days 180 tabs 1RF E11.9 - Type 2 diabetes mellitus without complications To metformin 1,000 mg PO BID 90 days 180 tabs 1RF E11.9 - Type 2 diabetes mellitus without complications Refilled tramadol Take 1 tablet orally 2-3 times a day as needed for pain 50 mg PO TID 30 days PRN 90 tabs 0RF pain
== END 2024-05-26 11:23 | disposition home or self-care (01) ==
PROVIDERS: PCP Internal Medicine; Visit Provider Internal Medicine
DX: M25.531 Pain in right wrist (principal); E11.9 Type 2 diabetes mellitus without complications; F33.9 Major depressive disorder, recurrent, unspecified; M25.532 Pain in left wrist; M25.572 Pain in left ankle and joints of left foot; E78.00 Pure hypercholesterolemia, unspecified; I10 Essential (primary) hypertension; G43.909 Migraine, unspecified, not intractable, without status migrainosus; J45.40 Moderate persistent asthma, uncomplicated; J30.9 Allergic rhinitis, unspecified; G47.33 Obstructive sleep apnea (adult) (pediatric); M47.816 Spondylosis without myelopathy or radiculopathy, lumbar region

== ENCOUNTER → 2024-05-26 10:22 | Outpatient (BNVA) | payer OTHER, SELFPAY | PROVIDERS: PCP Internal Medicine; Visit Provider Internal Medicine | DX: M25.531 Pain in right wrist (principal); M25.532 Pain in left wrist; M25.572 Pain in left ankle and joints of left foot; E78.00 Pure hypercholesterolemia, unspecified; E11.9 Type 2 diabetes mellitus without complications; I10 Essential (primary) hypertension; G43.909 Migraine, unspecified, not intractable, without status migrainosus; J45.40 Moderate persistent asthma, uncomplicated; J30.9 Allergic rhinitis, unspecified; G47.33 Obstructive sleep apnea (adult) (pediatric); M47.816 Spondylosis without myelopathy or radiculopathy, lumbar region; K21.9 Gastro-esophageal reflux disease without esophagitis; K82.8 Other specified diseases of gallbladder; R79.89 Other specified abnormal findings of blood chemistry; R74.8 Abnormal levels of other serum enzymes; N32.81 Overactive bladder; F41.9 Anxiety disorder, unspecified; F33.9 Major depressive disorder, recurrent, unspecified | CPT/HCPCS: 96127; 99212 ==

== ENCOUNTER 2024-05-31 10:56 | Outpatient (REF) | payer OTHER, SELFPAY | END 2024-05-31 10:57 | disposition home or self-care (01) | LOC: HO.XRAY 10:56 | PROVIDERS: PCP Internal Medicine; Visit Provider Internal Medicine | DX: M25.571 Pain in right ankle and joints of right foot (principal); M25.531 Pain in right wrist; M25.532 Pain in left wrist | CPT/HCPCS: 73110; 73610 ==

== ENCOUNTER 2024-06-21 09:46 | Outpatient (AMB) | payer OTHER, SELFPAY ==
[2024-06-21 09:47] VITALS: BP 122/78; PULSE 66; O2SAT 99; BMI 39.7
--- NOTE | 2024-06-21 09:47 | A.OFFPC_ITS ---
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 Required: No Accompanied by: Self / Same As Patient Allergies meclizine Adverse Reaction (Verified 06/21/24 10:20) tachycardia metoclopramide Adverse Reaction (Verified 06/21/24 10:20) tachycardia Medication List - Last Reconciled 06/21/24 by Villa Lr MD acetaminophen 500 mg PO Q6H PRN [ADULT PULL UPS As directed] albuterol sulfate 90 mcg/actuation (Ventolin HFA) 2 puffs inhalation QID PRN alum-mag hydroxide-simeth 400-400-40 mg/5 mL (Mylanta Maximum Strength) 10 mL PO TID PRN amitriptyline 75 mg PO DAILY atorvastatin 20 mg PO BEDTIME 90 days baclofen 10 mg PO BID PRN 30 days blood sugar diagnostic (FreeStyle Lite Strips) TEST BLOOD SUGAR DIRECTED 3 TIMES A DAY budesonide 32 mcg/actuation 2 sprays intranasal DAILY PRN cane As directed cholecalciferol (vitamin D3) 50 mcg PO DAILY 90 days clonazepam 1 mg PO TID diaper,brief,adult,disposable (Depend Easy Fit Undergarments [facility] [place] As directed erenumab-aooe (Aimovig Autoinjector) 140 mg subcut [id number] esomeprazole magnesium 40 mg PO DAILY [FREESTYLE LITE TEST STRIPS Test blood sugar as directed 3 times a day - E11.9 -- DIABETES] FreeStyle Lite Meter (blood-glucose meter) As directed NS fremanezumab-vfrm (Ajovy) mg subcut gabapentin 300 mg PO BEDTIME lancets (FreeStyle Lancets) As directed- 3 times a day linaclotide (Linzess) 290 mcg PO QAM liraglutide (Victoza 3-Shamir) 1.2 mg (0.2 mL) subcut DAILY melatonin 6 mg PO BEDTIME metformin 1,000 mg PO BID 90 days methylcellulose (laxative) (Fiber Therapy (methylcellulose)) 500 mg PO BID montelukast 10 mg PO BEDTIME 90 days ondansetron 4 mg sublingual TID pen needle, diabetic (Comfort EZ Pen [place]) As directed daily pioglitazone 30 mg PO DAILY propranolol 60 mg PO BID sennosides (senna) 17.2 mg (2 x 8.6 mg) PO BEDTIME PRN sertraline 50 mg PO DAILY simethicone 180 mg PO TID terconazole 0.8% 1 appful vaginal BEDTIME 3 days topiramate 50 mg PO BID tramadol 50 mg PO TID PRN 30 days triamcinolone acetonide 1 spray intranasal DAILY ubrogepant (Ubrelvy) 100 mg PO DAILY PRN ziprasidone HCl (Geodon) 80 mg PO BID Tobacco use date assessed: 06/21/24 Dental Screening Dental Screen Date: 06/21/24 Did you have a dental visit in the last 12 months?: Yes Did you have a dental problem in the last 6 months where you did not have access to dental care?: No Was dental information given to patient?: Patient has dentist HPI cyst/lump in breast HPI Details Patient comes in today for evaluation of a cyst / lesion on her left breast that she first noticed a couple of days ago States that the lesion feels slightly sore at times She had her routine mammogram done in 07/2023 - mammogram was negative She denies any other acute issues at present [facility] Medical History Overactive bladder Diarrhea Morbid obesity with BMI of 40.0-44.9, adult Biliary dyskinesia Elevated TSH Obesity (BMI 30-39.9) Depression Anxiety Insomnia Obstructive sleep apnea Vitamin D deficiency 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 myelopathy or radiculopathy Elevated LFTs Allergic rhinitis Asthma Migraine Pure hypercholesterolemia Benign essential hypertension Diabetes mellitus IBS (irritable bowel syndrome) Gastroparesis Surgical History Status post epidural steroid injection History of cardiac cath Hx of tubal ligation Hx of colonoscopy (~03/2018) Hx of endoscopy History of surgery of head Hx of hysterectomy (~08/2011) Family History Father Diabetes Hypertension Heart problem Mother Arthritis Diabetes Hypertension Maternal Grandmother Breast cancer, Onset Age: 72 Family/Other Diabetes Hypertension Heart problem Social History Household Members: Spouse Housing: House Are you a primary hourly caregiver to a significant other at home: No Do you presently have visiting nurse or other home services: No Alcohol intake: current Alcohol intake frequency: does not drink Comment: NOT INDICATED Patient Tobacco Use Status: Never used Tobacco e-Cigarette/Vaping Use: Never Used Second Hand Smoke Exposure: No Advance Directives Date on File: 03/20/16 service: No Current occupational status: disabled Cognitive needs: No Hearing needs: No Vision needs: Yes Female Reproductive History Menstrual Age of Menarche: 13 Questionnaire PHQ-9 Over the last 2 weeks, how often have you been bothered by any of the following problems? 1. Little interest or pleasure in doing things: not at all 2. Feeling down, depressed, or hopeless: not at all 3. Trouble falling or staying asleep, or sleeping too much: not at all 4. Feeling tired or having little energy: not at all 5. Poor appetite or overeating: not at all 6. Feeling bad about yourself - or that you are a failure or have let yourself or your family down: not at all 7. Trouble concentrating on things, such as reading the newspaper or watching television: not at all 8. Moving or speaking so slowly that other people could have noticed. Or the opposite - being so fidgety or restless that you have been moving around a lot more than usual: not at all 9. Thoughts that you would be better off or of hurting yourself in some way: not at all Total score: 0 Depression Screening Interpretation: Negative (is on Rx) Depression Screening Done: Yes 46953 - PHQ-9 Billing: Yes Source: Developed by Drs. Raymond Plunkett, Meaghan Art, Keshav Castro and colleagues, with an educational david from [employer]. Thrive Questionnaire Date Thrive assessed: 06/21/24 I am a: Patient What is your living situation today?: I have a steady place to live Within the past 12 months, did the food you bought not last and you didn't have the money to get more?: Never true Within the past 12 months, did you worry whether your food would run out before you got money to buy more?: Never true Do you have trouble paying for medicines?: No Do you have trouble getting transportation to medical appointments?: No Do you have trouble paying your heating and electricity bill?: No Do you have trouble taking care of your child, family member or friend?: No Do you have trouble with day-to-day activities such as bathing, preparing meals, shopping, managing finances, etc.?: No Are you currently unemployed and looking for a job?: No Are you interested in more education?: No Please select the resources that you would like help with: None Currently or been in a relationship where the following occur: No concerns reported THRIVE Score: 0 AUDIT C Alcohol Use Questionnaire (AUDIT-C) 1. How often do you have a drink containing alcohol?: Never 3. How often do you have six or more drinks on one occasion?: Never Total Score: 0 Score Reviewed/Action Taken: Yes FADUMO-7 AMB Questionnaire FADUMO-7 Date FADUMO - 7 assessed: 06/21/24 Feeling nervous, anxious, or on edge: 0 = Not at all Not being able to stop or control worryin = Not at all Worrying too much about different things: 0 = Not at all Trouble relaxin = Not at all Being so restless that it is hard to sit still: 0 = Not at all Becoming easily annoyed or irritable: 0 = Not at all Feeling afraid as if something awful might happen: 0 = Not at all Total FADUMO-7 score (0-4 normal; 5-9 mild; 10-14 moderate; 15-21 severe): 0 Source: Developed by Drs. Raymond Plunkett, Meaghan Art, Keshav Castro and colleagues, with an educational david from [employer]. Review of Systems Const Denies fatigue, Denies fever(s) and Denies headache(s) ENT Denies dysphagia, Denies dizziness, Denies headache(s), Denies neck pain and Denies sore throat Card Denies chest pain, Denies palpitations and Denies dyspnea Resp Denies chest congestion, Denies cough and Denies dyspnea GI Denies abdominal pain, Denies dysphagia, Denies diarrhea, Denies nausea and Denies vomiting Denies difficulty voiding, Denies nocturia, Denies dysuria and Reports urinary incontinence Musc Reports back pain (over the lower back - chronic), Reports arthralgias (on and off; more recently over the right ankle and both wrists) and Denies neck pain Skin/Breast Details: (+) small cyst/lesion at the areola of the left breast - patient first noticed this a couple of days ago Denies rash Neuro Denies dizziness and Denies headache(s) Endo Denies fatigue and Denies palpitations Physical exam (Primary Care) Vital Signs: Last Vital Signs Pulse 66 06/21/24 09:47 BP 122/78 06/21/24 09:47 Pulse Ox 99 06/21/24 09:47 Oxygen Delivery Method Room Air 06/21/24 09:47 BMI result Body Mass Index 39.7 Tobacco/Smoking Status: Tobacco use Status Tobacco use date assessed 06/21/24 06/21/24 09:53 Patient Tobacco Use Status Never used Tobacco 06/21/24 09:53 e-Cigarette/Vaping Use Never Used 06/21/24 09:53 PHQ-9: PHQ-9 Score PHQ-9: Total score 0 06/21/24 09:53 Depression Screening Interpretation: Negative (is on Rx) Thrive Assessment: Date of Thrive Assessment Date Thrive assessed 06/21/24 06/21/24 09:53 Currently or been in a relationship where the following occur: No concerns reported Const General: no acute distress and alert Neck Neck: Yes supple and No lymphadenopathy Thyroid: Thyroid normal Chest Other: (+) small erythematous, raised lesion at the areolar region of the left breast Resp Auscultation: clear to auscultation bilaterally, no rales and no wheezes Cardio Rate: regular rate Rhythm: regular rhythm Heart sounds: no murmurs GI Palpation (GI): Soft to palpation and nontender Auscultation: normal bowel sounds Extrem General: Yes no clubbing, cyanosis or edema Coding Level of Care Code Est Pt Level 3 (23126) Diagnoses Cyst of skin of left breast N60.82 Additional Codes PHQ-9 - 54765 - PHQ-9 Billing: Yes ([id number]) Assessment & Plan Assessment & Plan (1) Cyst of skin of left breast: Code(s): N60.82 - Other benign mammary dysplasias of left breast Category: Medical Plan: Have advised patient that what she has appears to be some form of cutaneous cyst on her left breast (areola) and that she does not require any imaging tests at this time Will refer her to surgery for further evaluation and recommendations and consideration for excision, if appropriate Plan Follow up as scheduled in late August 2024 Orders: Referrals Breast Surgery Referral N60.82 - Other benign mammary dysplasias of left breast
--- OUTSIDE RECORDS SUMMARY | 2024-06-21 09:50 | XMS_ITS | Continuity of Care Document ---
Author Organization [facility] Address [address] [place] [address] Care Team Providers Care Medical Assistant Name Role Phone LATIA RASHID Referring Provider LATIA RASHID Primary Care Provider Assessment Encounter Date Assessment Date Assessment LastModified by Organization Details LastModified Time 03/23/2024 03/23/2024 IMPRESSION: --Migraine with visual aura characterized as blurry --Decreased effectiveness of Botox reported after August 14, 2022 injections with daily headaches and insufficient number of Ubrelvy for breakthrough migraine, previously reported improved benefit after May 16 injections compared to the February 13, 2022 injections --December 19, 2022 Migraines better on Aimovig 140, off of Botox; there is dizziness -- 03/17/23 3 propranolol 80->60 mg BID: Reduction of dizziness with ongoing benefit of migraine prevention --November 11, 2023 topiramate 100 twice a day -> 50 twice a day, migraines even better, 1-2/week, hold Ubrelvy just once per week. --December 10, 2023 off Aimovig x 2 weeks -> 3-4 migraines per week, now back on Aimovig but switching soon to Ajovy. --March 23, 2024 Ajovy as main contributor to near migraine resolution? once every 2 weeks going away with Ubrelvy easily. Still on topiramate and propranolol. >>>>>>>>>>>>Septem 2023 She wishes no changes and I will put in for refills of Ajovy and Ubrelvy. Should headache worsen in correlation with amitriptyline 75 mg discontinuation by psychiatry, we will address the situation at that point. >>>>>>>>>>>>December 10, 2023 I provided her with a sample of Ajovy in case approval of Ajovy has any delays. I cautioned her not to take it until 1 month after she took the sample of Aimovig we gave her 2 days ago and she understands. I told her to keep the extra dose in her refrigerator and to picker / packer the new prescription when it gets. Therefore, if insurance switches again, she will have protection of at least 1 month on an appropriate migraine preventative medication while we sort through the changes needed in preauthorization. >>>>>>>>>>>>November 11, 2023 I suggest further taper of topiramate. She declines, wanting to stay on the reduced dose of 50 mg twice a day and make no changes otherwise to her other migraine medications. I think this is fine. >>>>>>>>>>>>October 07, 2023: Migraines have been reasonably well controlled on Aimovig 140 mg/mL, propranolol 60 mg twice daily (previously reduced from 80 mg twice daily in the context of dizziness) topiramate 100 mg twice daily and Ubrelvy 2-3 times per week for breakthrough migraine. We will request ongoing authorization for Aimovig 140 mg/mL. Ubrelvy has been approved through July 04, 2023. We discussed the above at which point she asks if we can reduce the 1 that starts with a T and recognizes Topamax. She is not having side effect. She wishes to reduce the number of medications that she is taking. This is reasonable. We initially discussed 25 mg/month reduction however she is on 100 mg twice daily and I believe that she would tolerate 25% reduction. We will plan on close follow-up hopefully as she had some difficulty with propranolol adjustment when we attempted sequential changes over more than 1 month. (I offered both strategies, she elects monthly follow-ups). Medication update November 28, 2022 (complete list with April 2023 confirmation of medications from [facility]) -From [facility]: propranolol 60 mg twice daily topiramate 100 mg twice daily, Aimovig 140 mg/mL monthly autoinjector and Ubrelvy 100 mg as needed for breakthrough migraine from [facility] (she was also concurrently on rizatriptan for breakthrough migraine in the past but this was disallowed by insurance at renewal, Botox injections on hold) -From others: Amitriptyline 75 mg nightly, atorvastatin, clonazepam 1 mg twice daily as needed, esomeprazole (stopped famotidine last month) fiber therapy, M cellulose and laxative husk, gabapentin 300 mg daily, Linzess, acetaminophen, melatonin, metformin, montelukast, ondansetron (not with her pill bottles but confirms from her personal list) pantoprazole (also on her personal list but not with her pill bottles) pioglitazone, senna, sertraline 100 mg, simethicone, tramadol, Ventolin inhaler (confirms from her list) Victoza, vitamin D3 and ziprasidone -She has ranitidine in her pillbox but she is not taking it and she has a prescription for meclizine that she says is from her period but it increases her heart rate so she does not take it. -She also confirms that she is not taking a number of antibiotics, antifungal and corticosteroid creams. She is off of aspirin, she does not tolerate ibuprofen, she is not currently on methocarbamol or metoclopramide. PLAN Ute Ashlyn March 23, 2024 FOR MIGRAINE PREVENTION CONTINUE Ajovy 225 mg monthly subcutaneous injection CONTINUE Topiramate 50 mg twice daily CONTINUE propranolol 60mg twice daily FOR BREAKTHROUGH MIGRAINES CONTINUE Ubrelvy 100 mg. Take 1 tablet at the beginning of migraine, may repeat after 2 hours, maximum 2 doses (200 mg per) 24 hours. CONTINUE CPAP for sleep apnea and continue working with your sleep medicine team to optimize your settings. CONTINUE exercise plan that you learned from physical therapy Follow-up 6 months cyndy Not available 03/23/2024 13:02:50 Plan of Treatment Reminders Order Date Submit Date Provider Last Modified By Organization Details Last Modified Time Details Appointments FOLLOW UP EXT 2024 12:00P Zenaida Lieberman MD PhD Not available Not available Not available Lab None recorded. Referral None recorded. Procedures None recorded. Surgeries None recorded. Imaging None recorded. Medication Orders Ajovy 225 mg/1.5 mL subcutane ous auto-inje ctor 2023 024 [facility] #[id number], [address], [place], [address], 03/23/2024 12:47:06 Ubrelvy 100 mg tablet 2023 024 [facility] #[id number], [address] [place], [address], 03/23/2024 12:47:07 Patient TargetsNo targets recorded. 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 We will recall that she had emergence of worsening headaches on 40 mg propranolol in the morning and 60 mg at night when tapered more abruptly --Migraine reduction from daily to 3-4 times per week on Aimovig 70 mg/mL October 2022 and reduction to 2-3 migraines per week on Aimovig 140 mg/mL reported in November 2022 --Decreased effectiveness reported after August 14, 2022 Botox injections, previous benefit from CGRP monthly autoinjector Aimovig 70 mg/mL January 2019, increased to 140 mg/mL March 2019 with decision to continue Botox after February 2020. Multiple migraine preventative medications do not help sufficiently. This may be because of the strong muscular component. She reports improvement in frequency of these headaches after Botox injections which supports a strong muscular component. Rizatriptan disallowed by your insurance when Ubrelvy was renewed Sumatriptan - Did not help PREVIOUS DISCUSSIONS May 28, 2023: She has reduced propranolol to 60 mg twice daily. Dizziness is better. She has occasional breakthrough headaches but ? not strong? . We reflected when she had reduced propranolol to 40 mg in the morning and 60 mg at night (all-be-it somewhat more abruptly than recommended) she had reemergence of headache. She would like to continue on propranolol 60 mg twice daily. -In preparation for her visit today, I reviewed the propranolol prescription in [place] and noted that she had a 90-day supply of the 60 mg tablets dispensed on April 28, 2023 and then an additional 90-day supply 4 days ago of the 80 mg tablets on May 24, 2023. She tells me that she has the 60 mg tablets at home and that she told the pharmacy she does not need the 80 mg. We will also contact the pharmacy to confirm that she will continue 60 mg twice daily dose. -We will not make any changes to her additional preventatives, Aimovig 140 mg monthly autoinjector, topiramate 100 mg twice daily nor her breakthrough, Ubrelvy 100 mg which she again confirms works better than rizatriptan did in the past. Ubrelvy is due for renewal in May, we will request continued authorization. Plan for a follow-up in September before she is due for renewal of Aimovig on October 31, 2022. April 24 2023: She attempted reducing propranolol from 60 mg in the morning and 80 mg at night to 40 mg in the morning and 60 mg at night but had worsening of headaches. She resumed 60 mg in the morning and 80 mg at night. She has a current prescription for 60 mg twice daily and sufficient supply for about 2 weeks of the 80 mg tablet if taken once daily in the evening. -We discussed options to continue this 24-hour regimen which is 140 mg per 24 hours. Unfortunately long-acting does not come in 140 mg formula. We discussed the possibility of 1 and half 40 mg tablets in the morning and 2 at night. She suggests further reduction of the nighttime tablet to 60 mg. I told her it is reasonable to give this a try and if it does not work we can readdress in a follow-up in 4 weeks she may resume her 80 mg tablet at night if she has worsening of her headache March 18, 2023: She feels that the reduction of propranolol from 80 mg twice daily to 60 mg in the morning and 80 mg at night has helped a bit with the dizziness. She would like to continue the titration. We reviewed our plans from last visit: At that point she had mentioned further reduction to 60 mg twice daily for a few days -it is unclear when she went back up to 80 mg at night. In any event, she would like to go down to 60 mg twice daily. -We had also discussed further reduction to one half of the 80 mg tablets previously to achieve 40 mg doses. We decided to delay this next step and do it together with a single reduction at each visit to avoid future confusion and to go slowly on the reduction and delay or stop if she achieves sufficient improvement with the side effect of dizziness. She would like to reduce propranolol from 60 mg in the morning and 80 mg at night to 60 mg twice daily. I have also changed the prescription to reflect the current planned reduction. A/PI cannot be certain if you are having visual aura/blurriness and dizziness associated with migraines but it seems unusual in the context of decreased migraines on Aimovig 140 mg/mL. As you also continue Topamax 100 mg twice a day, amitriptyline 75 mg at night from psychiatry, and previously propranolol 80 mg twice a day, dizziness is slightly improved on 60 mg in the morning and 80 mg at night. It is possible that you are having some lightheadedness from the propranolol as some of your slight visual changes are worse with standing. You are currently taking propranolol 60 mg in the morning and 80 mg at night. You have noticed an improvement in dizzy spells. You still have dizzy spells 3 times per week. At your last visit January 23, 2023, there was some discussion of reducing propranolol to 60 mg twice daily for a few days and we planned on further reduction however it seems that this was a bit confusing. -Therefore, I have stopped the 80 mg propranolol prescription. Please set this aside, we will use the next time. I have resumed the 60 mg propranolol prescription: You have these at home as well so you will need to call the pharmacy for the refill because I told the pharmacist you may not need it immediately. -We will plan reduction as follows: Continue propranolol 60 mg every morning but stop propranolol 80 mg every night and replace it with the 60 mg tablet. This will make your next reduction straightforward, 60 mg twice daily. -Follow up in 2 to 4 weeks to make a decision about the next reduction January 23, 2023: She wishes to continue with further propranolol taper. She has plenty of 80 mg tablets at home and so we will use those in half tablet doses to continue a 20 mg per 24-hour reduction every 2 weeks. She understands that she can go slower every 4 weeks or resume an old dose if she has headaches emerge. She asks if the next appointment can be by telephone: I explained that since we are no longer in the emergency state with respect to the pandemic, we have resumed in person appointments. Therefore, she may like to push out the appointment sooner than the earliest date we discussed which would be March 03 if she continued with a taper every 2 weeks. REVIEW of December 19 2022 rationale to reduce propranolol: She continues to have benefit with reduction of frequency and severity of migraine with resuming Aimovig 140 mg/mL. It was approved by her insurance until June 01, 2023 on appeal. Despite the improvements, she has had increased dizziness and visual changes that are associated with the headaches. She has historically had some visual aura associated with migraines. However, she also agrees that this may be lightheadedness. It is a bit difficult to distinguish. We discussed that she is on 4 medications that would work for migraine prevention (1 of these, amitriptyline is not prescribed for migraine and is managed by psychiatry). She does not have any eye pain associated with visual changes. Propranolol could contribute to lightheadedness. She agrees with a trial of reducing propranolol to see if the dizziness and visual changes improve. We will plan a follow-up in 1 month to see if the dizziness and visual changes improve with propranolol dose reduction and we will continue to monitor migraine frequency and severity. November 28 2022: she has had reduction of migraine frequency and severity advancing from Aimovig 70 mg/mL to Aimovig 140 mg/mL and wishes to continue. She was on Aimovig 140 mg/mL in the past. I have given her another sample of Aimovig 140 mg/mL as migraines have been reduced from 3 or 4 to 2-3 and only last for a few hours compared to the 70 mg/mL the prior month. Aimovig 140 mg/mL was sent to her pharmacy and we will request prior authorization. -She asks about dizziness at the end of our appointment. This was part of our rationale for going through the medication count however we did not go through the details of her dizziness symptoms. I have asked her to schedule another appointment and we will go through all of the symptoms. It is my hope that the Aimovig will also continue to improve any dizziness from migraine. I have asked her to keep track of the character of the dizziness. She wonders about a pill for the dizziness. This was part of the rationale for the pill count. She is on numerous medications. I told her that I do not think that we will be starting another medication for dizziness however, we may consider reduction, particularly propranolol if she is more lightheaded than vertiginous. FOR DIZZINESS ASSOCIATED WITH MIGRAINES: You previously mentioned that you are having allergy to metoclopramide and meclizine but asked about the dizziness with the migraines. You mentioned the dizziness again today at the end of our appointment and in general migraines are better. We did not thoroughly discuss the details of your dizziness. -My hope is that the episodes of dizziness will improve with improved migraine prevention. You are also on many medications that could interact with the medications that are specific for dizziness or nausea. You are not currently taking meclizine as it increases heart rate. You are taking ondansetron for nausea. Clonazepam is for anxiety though sometimes improves dizziness. Propranolol for your migraine prevention could cause lightheaded headedness. We will further discuss it at a dedicated follow-up for dizziness. -December 03 2022 addendum Authorization for Aimovig monthly autoinjector was denied by her insurance. I think that we should appeal the decision. She is already on propranolol 80 mg twice daily and topiramate 100 mg twice daily with insufficient benefit. She is on amitriptyline 75 mg nightly from her psychiatrist, also with insufficient benefit for her migraines. She was previously on Botox injections every 90 days and began to have increased migraines every day. She was running out of Ubrelvy for breakthrough migraine reported October 01, 2022. On October 29, 2021, she had improvement with reduction of migraines from daily to 3-4 times per week and on 140 mg/mL last month, she had reduction of migraines to 2-3 times per week. I advanced her from 70 mg/mL to 140 mg/mL as she has been on 140 mg/mL Aimovig autoinjectors in the past. She also had improved control with reduction of the severity of the breakthrough migraines. For these reasons, I believe we should appeal their decision. October 29, 2022 discussion after Aimovig 70 mg/mL trial: She does seem to think that Aimovig 70 mg/mL helped reduce migraines from daily to 3-4 times per week. Historically, she was up to 140 mg/mL before making the decision for Botox, therefore, as she still has insufficient control, though it has not been a full 3 months, we decided to go ahead with increased to 140 mg/mL trial as I prefer to prevent the episodes of dizziness and nausea rather than adding another medication. She is on multiple medications. I have asked her to bring in both her list that she showed me today and her bottles to to confirm her current medications wonfirm he current medication. We are canceling her upcoming Botox appointment on November 13, 2022. -We reviewed that her prior authorization for Ubrelvy was approved for 10 pills only. This has been inadequate. We did not discuss the addition of rizatriptan through [employer] which we have discussed previously as she had been on both rizatriptan and Ubrelvy for breakthrough migraine but the rizatriptan was disallowed by insurance at the time of refill winter 2022. -She will be due for her next Aimovig injection on October 31. We will plan a 3-week follow-up to make a decision about next steps October 01, 2022 review of rationale for retrial of Aimovig: She is having increasing headaches despite Botox. She would like to go back to monthly autoinjector. She was previously on Aimovig which she found effective although there may have been a wearing off effect between January 2019 with increased to 140 mg/mL March 2019 through February 2020 when insurance would not cover both Aimovig and Botox. She opted for Botox at the time.. -It has been 2-1/2 years since she has been on Aimovig which she was on in the past for about a year. I offered her an alternate versus the same injector. She would like to try the same 1 that she was on in the past. We went over the potential side effects. She will picker / packer a sample today. She will follow-up in 3 weeks to see how she was doing. We will not make changes to the Botox plans until we see how she does with the Aimovig. She understands that she may be receiving concurrent benefit from the Botox by having a trial of the injection now as opposed to waiting until the Botox has completely worn off July 09 2022: She has excellent control of her migraines at present increase by 120 units at her last Botox injection on May 16, 2022. Also on topiramate 100 mg twice daily, propranolol 80 mg twice daily for prevention with the addition of amitriptyline 75 mg from psychiatry and with Botox every 90 days. We will request 500 units next injection which is scheduled August 14 2022. I have typically been seeing her 1 month after Botox. She is doing so well at present that we opted for a 6-month follow-up. She will contact me in the interim if she has worsening of her migraines. March 14, 2022: (...)She is on Ubrelvy and she has been continuing to fill prescription for rizatriptan. Ubrelvy works better though. I am not sure why, it appears that the pharmacy gives her less then prescribed or approved when she picks it up where as it she is given the rizatriptan routinely. In any case, I told her that it is reasonable to continue both from a clinical standpoint as the mechanism of action is different but there may be limitations from her insurance. She understands. -Prevention options are limited, we discussed CGRP inhibitors. She has tried Aimovig in the past and preferred Botox. She does not wish to make any changes. -I offered physical therapy, she is enthusiastic. September 05 2021: Ubrelvy has been approved and she has had ongoing excellent response May 29, 2021:She tried rizatriptan which was prescribed at her last visit after prior trial of sumatriptan. April 25, 2021: After January 24, 2021 Botox injections, she has had daily headaches, and severe ones for which she has tried sumatriptan 4-5 times per week. Sumatriptan has not helped. Ubrelvy 100 mg has helped. Neither has caused side effects. The other 2 to 3 days she has more mild headache on and off. March 08, 2020:Insurance has stated that they will not approve both Botox and Aimovig. I ask her which she thinks helps more. She says Botox helps more definitively. We will stick with the Botox and discontinue Aimovig. She understands that if she changes her mind we can certainly reverse this. Aimovig stopped Aimovig monthly injections started at the beginning of January 2019 increased from 70 mg to 140 mg beginning of March 2019. Previously we had concluded: Aimovig may be helping as, with addition of Aimovig, added to unchanging Botox/Topamax/propr anolol, headaches are no longer all day. March 08, 2020: Limitations in prescribing a medication for nausea: Zofran has not been tried as the pharmacist reminded me that she is on Geodon and Zofran/Geodon have an interaction related to QTC elongation. Both Phenergan and Compazine also have this shortcoming in prescription together with Geodon. Medication review from October 2017: Primary care: Metformin, Actos, Vict Rico, lisinopril, simvastatin 5 mg daily, ranitidine, Singulair, inhalers, creams, tramadol 50 mg 50 mg 2-3 per day Psychiatry amitriptyline 150 mA nightly, sertraline 50 mg daily, clonazepam 1 mg 3 times a day, Geodon 60 mg twice a day, melatonin 3 mg at bedtime GI ranitidine 300 mg daily, fiber, metoclopramide 10 mg daily, anti-pros all 40 mg twice a day, milk of magnesia Myself: Topiramate 100 mg twice a day, propranolol 80 mg twice a day FIORICET DISCUSSION: 2018: She has listed Fioricet and meclizine from her previous neurologist Dr. Forde. We have reviewed as I said at initial consultation that I do not prescribe Fioricet. I cannot say if she has already tapered off. I defer to primary care. The meclizine is for dizziness. I defer to primary care on meclizine as needed for dizziness. BILLING Chronic condition with exacerbation; prescription medication management cyndy Not available 03/23/2024 13:04:40 Reason for Referral None Reported. 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 Procedures Surgical History Date Name Laterality Status Provider Name and Address Organization Details Recorded Time 4 botulinum injection completed Imer Lieberman MD [address] [facility] [address], [place], [id number], [facility] 03/23/2024 12:37:46 4 botulinum injection completed Imer Lieberman MD [address] [facility] [address], [place], [id number], [facility] 12/10/2023 11:56:10 4 botulinum injection completed Imer Lieberman MD [address] [facility] B, YAKOV Montero, [phone], [facility] 11/11/2023 11:10:22 4 botulinum injection completed ENRIKE NORTON PA-C [address] [facility] B, YAKOV Montero, [phone], [facility] 10/07/2023 10:03:49 3 botulinum injection completed ENRIKE NORTON PA-C [address] [place] [address] B, YAKOV Montero, [phone], [facility] 05/28/2023 09:39:33 3 botulinum injection completed ENRIKE NORTON PA-C [address] [place] [address] B, YAKOV Montero, [phone], [facility] 04/24/2023 10:42:13 3 botulinum injection completed ENRIKE NORTON PA-C [address] [place] [address] B, YAKOV Montero, [phone], [facility] 03/18/2023 10:47:21 3 botulinum injection completed ENRIKE NORTON PA-C [address] [place] [address] B, YAKOV Montero, [phone], [facility] 01/23/2023 09:59:39 3 botulinum injection completed ENRIKE NORTON PA-C [address] [place] [address] B, YAKOV Montero, [phone], [facility] 12/19/2022 11:33:40 3 botulinum injection completed ENRIKE NORTON PA-C [address] [facility] B, YAKOV Montero, [phone], [facility] 11/28/2022 13:56:45 3 botulinum injection completed ENRIKE NORTON PA-C [address] [facility] B, YAKOV Montero, [phone], [facility] 10/29/2022 10:47:52 3 botulinum injection completed ENRIKE NORTON PA-C [address] [facility] B, YAKOV Montero, [phone], [facility] 10/01/2022 13:50:41 3 botulinum injection completed Imer Lieberman MD [address] [place] [address], YAKOV Montero, [phone], [facility] 08/14/2022 17:00:39 3 botulinum injection completed ENRIKE NORTON PA-C [address] [place] [address], YAKOV Montero, [phone], [facility] 07/09/2022 14:05:58 2 botulinum injection completed Imer Lieberman MD [address] [place] [address], YAKOV Montero, [phone], [facility] 05/16/2022 13:33:52 2 botulinum injection completed ENRIKE NORTON PA-C [address] [place] [address] B, YAKOV Montero, [phone], [facility] 03/14/2022 14:10:23 2 botulinum injection completed Imer Lieberman MD [address] [place] [address] B, YAKOV Montero, [phone], [facility] 02/13/2022 09:15:23 2 botulinum injection completed ENRIKE NORTON PA-C [address] [place] [address] B, YAKOV Montero, [phone], [facility] 12/06/2021 13:50:32 2 botulinum injection completed Imer Lieberman MD [address] [place], [place] [address]IvánYAKOV, [phone], [facility] 11/07/2021 13:30:06 2 botulinum injection completed ENRIKE NORTON PA-C [address] [place], [place] [address]Iván YAKOV, [phone], [facility] 09/05/2021 14:12:15 2 botulinum injection completed Imer Lieberman MD [address] [place], [place] [address], [phone], [facility] 07/25/2021 15:27:34 2 botulinum injection completed ENRIKE NORTON PA-C [address] [place] [address] YAKOV Montero, [phone], [facility] 07/12/2021 08:55:03 1 botulinum injection completed ENRIKE NORTON PA-C [address] [place] [address] YAKOV Montero, [phone], [facility] 05/29/2021 22:54:52 1 botulinum injection completed Imer Lieberman MD [address] [place] [address] YAKOV Montero, [phone], [facility] 04/25/2021 14:30:46 1 botulinum injection completed Imer Lieberman MD [address] [place] [address] YAKOV Montero, [phone], [facility] 01/24/2021 19:05:02 1 botulinum injection completed Imer Lieberman MD [address] [place] [address] YAKOV Montero, [phone], [facility] 10/25/2020 18:09:08 Imaging Results None recorded. Procedure Notes None recorded. Medical Equipment None Reported. Medications Name Sig Start Date Stop Date Status Note LastModified by Organization Details LastModified Time ziprasidone 80 mg capsule TOME 1 C PSULA POR V A ORAL CON LAS COMIDAS DOS VECES AL D A active Not Available Not Available No t Available amoxicillin 500 mg capsule TAKE 1 CAPSULE BY MOUTH EVERY 8 HOURS active Not Available Not Available No t Available budesonide 32 mcg/actuati on nasal spray USE 2 SPRAYS IN EACH NOSTRIL DAILY NEEDED FOR NASAL AND SINUS CONGESTIO active Not Available Not Available No t Available metformin 500 mg tablet TOME 1 TABLETA POR V A ORAL DOS VECES AL D A active Not Available Not Available No t Available cromolyn 100 mg/5 mL oral concentrate GIVE 10 ML'S BY MOUTH 4 TIMES A DAY FOR 30 DAYS active Not Available Not Available No t Available clonidine HCl 0.1 mg tablet TOME JOSTIN TABLETA POR V A ORAL AL ACOSTARSE 03/23 completed Not Available Not Available Not Available propranolol 80 mg tablet TOME JOSTIN TABLETA DOS VECES AL D A 03/23 completed Not Available Not Available Not Available atorvastati n 20 mg tablet TOME 1 TABLETA POR V A ORAL TODOS LOS D AL ACOSTARSE active Not Available Not Available No t Available Carafate 100 mg/mL oral suspension TAKE 10 ML BY MOUTH 4 TIMES A DAY. SWISH IN MOUTH AND SWALLOW USE AFTER FOOD/DRIN K active Not Available Not Available No t Available amitriptyli ne 150 mg tablet TOME JOSTIN TABLETA TODOS LOS D AL ACOSTARSE active Not Available Not Available No t Available azithromyci n 250 mg tablet active Not Available Not Available Not Available amitriptyli ne 75 mg tablet TOME 1 TABLETA POR V A ORAL TODOS LOS D AL ACOSTARSE active Not Available Not Available No t Available simethicone 180 mg capsule TAKE 1 CAPSULE BY MOUTH 3 TIMES A DAY active Not Available Not Available No t Available sumatriptan 100 mg tablet TAKE 1/2 OR 1 TAB AT ONSET OF HEADACHE MAY REPEAT ONCE AFTER 2 HOURS 03/14 completed Not Available Not Available Not Available senna 8.6 mg tablet TOME DOS TABLETAS POR V A ORAL AT BEDTIME NEEDED FOR FOR CONSTIPAT ION active Not Available Not Available No t Available FreeStyle Lancets 28 gauge DIRECTED- 3 TIMES A DAY active Not Available Not Available No t Available famotidine 40 mg tablet TOME JOSTIN TABLETA POR V A ORAL AL ACOSTARSE active Not Available Not Available No t Available rizatriptan 10 mg tablet 1 tab at beinning of hedache, may repeat x1 after 30 minutes, max 2 tab/24 hours, 6 tabs/wk 03/23 completed Not Available Not Available Not Available sertraline 100 mg tablet TOME JOSITN Y MEDIA TABLETAS TODOS LOS PALMA POR VIA ORAL KI LO INDICADO 03/23 completed Not Available Not Available Not Available terconazole 0.8 % vaginal cream 1 APPFUL VAGINALLY BEDTIME FOR 3 DAYS active Not Available Not Available No t Available clonazepam 1 mg tablet TAKE 1 TABLET BY MOUTH TWICE A DAY NEEDED FOR ANXIETY active Not Available Not Available No t Available pioglitazon e 45 mg tablet TOME JOSTIN TABLETA POR V A ORAL TODOS LOS D POR 90 PALMA active Not Available Not Available No t Available propranolol 60 mg tablet TOME JOSTIN TABLETA DOS VECES AL D A active Not Available Not Available No t Available melatonin 3 mg tablet TOME DOS TABLETAS POR V A ORAL EVERY NIGHT SEG N LO INDICADO 1 HOUR BEFORE BEDTIME active Not Available Not Available No t Available sulfamethox azole 800 mg-trimetho prim 160 mg tablet TOME JOSTIN TABLETA POR V A ORAL DOS VECES AL D A FOR 5 DAYS active Not Available Not Available No t Available peg-electro lyte solution 420 gram oral solution PLEASE SEE ATTACHED FOR DETAILED DIRECTION S active Not Available Not Available No t Available omeprazole 40 mg capsule,del ayed release TOME 1 C PSULA POR V A ORAL A DIARIO active Not Available Not Available No t Available aspirin 81 mg tablet,sada yed release TOME JOSTIN TABLETA TODOS LOS D active Not Available Not Available No t Available tramadol 50 mg tablet TAKE 1 TABLET ORALLY 2-3 TIMES A DAY NEEDED FOR PAIN active Not Available Not Available No t Available acetaminoph en 500 mg tablet TAKE 1 TABLET ORALLY EVERY 6 HOURS NEEDED FOR FEVER active Not Available Not Available No t Available amoxicillin 500 mg tablet active Not Available Not Available Not Available vancomycin 125 mg capsule TAKE ONE CAP BY MOUTH EVERY 6 HOURS FOR 10 DAYS active Not Available Not Available No t Available Miconazole- 7 2 % vaginal cream 1 APPFUL VAGINALLY BEDTIME FOR 7 DAYS active Not Available Not Available No t Available terbinafine HCl 250 mg tablet TAKE 1 TABLET BY MOUTH EVERY FRIDAY AND FRIDAY active Not Available Not Available No t Available famotidine 20 mg tablet 1 TABLET TWICE A DAY NEEDED FOR ABDOMINAL PAIN ORALLY active Not Available Not Available No t Available methocarbam ol 750 mg tablet active Not Available Not Available Not Available dicyclomine 20 mg tablet TOME JOSTIN TABLETA POR V A ORAL DOS VECES AL D A active Not Available Not Available No t Available Mapap (acetaminop hen) 500 mg capsule active Not Available Not Available Not Available baclofen 10 mg tablet TOME JOSTIN TABLETA POR V A ORAL DOS VECES AL D A PARA EL ESPASMO MUSCULAR CUANDO SEA NECESARIO active Not Available Not Available No t Available benzonatate 100 mg capsule TOME 1 C PSULA POR V A ORAL YASEMIN VECES AL D A active Not Available Not Available No t Available pantoprazol e 40 mg tablet,sada yed release TAKE 1 TABLET BY MOUTH DAILY active Not Available Not Available No t Available esomeprazol e magnesium 40 mg capsule,del ayed release TOME JOSTIN C PSULA TODOS LOS D active Not Available Not Available No t Available triamcinolo ne acetonide 55 mcg nasal spray aerosol INSTILL 1 SPRAY INTRANASA LLY DAILY active Not Available Not Available No t Available ibuprofen 400 mg tablet active Not Available Not Available Not Available gabapentin 300 mg capsule TOME 1 C PSULA POR V A ORAL AL ACOSTARSE CUANDO SEA NECESARIO PARA EL DOLOR active Not Available Not Available No t Available omeprazole 20 mg capsule,del ayed release TOME JOSTIN C PSULA TODOS LOS D BEFORE MEALS DIRECTED. active Not Available Not Available No t Available montelukast 10 mg tablet TOME JOSTIN TABLETA POR V A ORAL AL ACOSTARSE active Not Available Not Available No t Available hydroxyzine HCl 25 mg tablet TOME 1 TABLETA POR V A ORAL YASEMIN VECES AL D A CUANDO SEA NECESARIO PARA LA ANSIEDAD active Not Available Not Available No t Available bisacodyl 5 mg tablet,sada yed release TOME DOS TABLETAS (10MG) POR V A ORAL AL ACOSTARSE 30 DAYS active Not Available Not Available No t Available gabapentin 100 mg capsule TOME 1 C PSULA POR V A ORAL AL ACOSTARSE active Not Available Not Available No t Available ibuprofen 600 mg tablet active Not Available Not Available Not Available methylpredn isolone 4 mg tablets in a dose pack active Not Available Not Available Not Available pioglitazon e 30 mg tablet TOME 1 TABLETA POR V A ORAL TODOS LOS D active Not Available Not Available No t Available ondansetron 4 mg disintegrat ing tablet DISUELVA JOSTIN TABLETA POR V A ORAL YASEMIN VECES AL D A active Not Available Not Available No t Available topiramate 100 mg tablet TOME 1/2 TABLETA POR LA MANANA Y 1 TABLETA POR LA NOCHE active Not Available Not Available No t Available clotrimazol e 1 % topical cream APPLY TO BOTTOM OF FEET ONCE A DAY active Not Available Not Available No t Available sertraline 50 mg tablet TOME 1 TABLETA POR V A ORAL TODOS LOS D EN LA MA LAURENT active Not Available Not Available No t Available amitriptyli ne 100 mg tablet TOME JOSTIN TABLETA POR V A ORAL AL ACOSTARSE active Not Available Not Available No t Available dicyclomine 10 mg capsule TOME 1 C PSULA POR V A ORAL CUATRO VECES AL D A TODOS LOS D active Not Available Not Available No t Available metoclopram vandana 10 mg tablet TOME JOSTIN TABLETA POR V A ORAL AL ACOSTARSE 1 AND 1/2 HOURS ANTES DE LAS COMIDAS NO SERTRALIN E active Not Available Not Available No t Available amoxicillin 875 mg-potassiu m clavulanate 125 mg tablet active Not Available Not Available Not Available amoxicillin 500 mg-potassiu m clavulanate 125 mg tablet active Not Available Not Available Not Available Ventolin HFA 90 mcg/actuati on aerosol inhaler 2 PUFF INHALED 4 TIMES A DAY NEEDED FOR FOR WHEEZING active Not Available Not Available No t Available Botox 100 unit injection Inject intramusc ularly into posterior shoulder, neck, and scalp 03/23 completed Not Available Not Available Not Available Fiber Therapy (methylcell ulose) 500 mg tablet TAKE 1 TABLET BY MOUTH 2 TIMES A DAY. NOT COVERED active Not Available Not Available No t Available topiramate 50 mg tablet TAKE 1 TABLET POR V A ORAL TWICE A DAY ,90 DAYS, FOR MIGRAINE PREVENTIO N. active Not Available Not Available No t Available Fiber Therapy Laxative (psyllium husk) 0.52 gram capsule TOME 2 C PSULAS WITH 8 OUNCES OF FLUID YASEMIN VECES AL D A active Not Available Not Available No t Available FreeStyle Lite Meter kit active Not Available Not Available Not Available FreeStyle Lite Strips TEST BLOOD SUGAR DIRECTED 3 TIMES A DAY active Not Available Not Available No t Available cholecalcif elizabeth (vitamin D3) 50 mcg (2,000 unit) capsule TOME 1 C PSULA POR V A ORAL A DIARIO active Not Available Not Available No t Available Creon 24,000-76,0 00-120,000 unit capsule,del ayed release TOME JOSTIN C PSULA CUATRO VECES AL D A active Not Available Not Available No t Available Antifungal (miconazole ) 2 % topical powder APPLY TOPICALLY 2 TIMES A DAY active Not Available Not Available No t Available Linzess 290 mcg capsule TOME 1 C PSULA POR V A ORAL CADA MA LAURENT active Not Available Not Available No t Available Victoza 3-Shamir 0.6 mg/0.1 mL (18 mg/3 mL) subcutaneou s pen injector INJECT 1.2 MG (0.2 ML) SUBCUTANE OUSLY DAILY active Not Available Not Available No t Available BD Ultra-Fine Micro Pen Needle 32 gauge x 1/4 USE DIRECTED ONCE DAILY active Not Available Not Available No t Available Aimovig Autoinjecto r 140 mg/mL subcutaneou s auto-inject or Inject 1 mL every month by subcutane ous route for 30 days. 03/23 completed Not Available Not Available Not Available BD Marlin 2nd Gen Pen Needle 32 gauge x /32 USE SEG N LO INDICADO active Not Available Not Available No t Available Ubrelvy 100 mg tablet active Not Available Not Available No t Available Ajovy 225 mg/1.5 mL subcutaneou s auto-inject or Inject 1.5 mL every month by subcutane ous route for 30 days. 2023 active Not Available Not Available Not Avai lable Flowflex COVID-19 Antigen Home Test kit SEG N LO INDICADO active Not Available Not Available No t Available Vitals None Recorded Social History None recorded. Functional Status None recorded. Mental Status None recorded. Family History Nothing Reported. Medical History No medical history recorded. Gynecological HistoryNo gynecological history recorded. 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 Dystonia 02661386 G24.3 Facial spasm [id number] G5 1.39 Migraine without aura 56 465443 G43.009 Migraine with aura 06668 06 G43.109 Health Concerns Section Related Observation LastModified by Organization Detai ls LastModified Time None Recorded Concern Status LastModified by Organization Details LastModified Time None Recorded Payers Encounter Date Sequence Insurance Name Policy Number Policy Leone Covered Member ID Leone Member ID Guarantor Name 03/23/2024 1 [facility] ([facility] [employer] Ute Ashlyn [id number] Ute Ashlyn Notes Date Note Type Note Provider Name and Address Organization Details Recorded Time 03/23/2024 text/html Follow-up of his tory of debilitation headache--Past history includes a bipolar disorder and depression, and fibromyalgia and back pain.--She is accompanied by her , Nura; Not present, Catherine, her sister. >>>>>>>>>>>>Septdeliae r 2023Since December 10, 2023 Neurology follow-up encounter, when I gave her a sample of migraine preventative monthly injection of Ajovy, insurance issues with this straightened out and she has been on monthly injection since, without side effect or insurance supply issue.She feels the Ajovy is even better than the Aimovig (which insurance had started to deny as they were switching the monthly CGRP injections that they favored). She is only having one headache every other week. It is bad enough to take migraine breakthrough medication Ubrelvy. Ubrelvy works promptly without side effect.She continues on other migraine preventatives propranolol 60 mg twice daily and topiramate 50 mg twice daily without side effects.Psychiatry has stopped amitriptyline 75 mg nightly just 2 weeks ago because of concern that it might affect her heart. She reports no heart disease at baseline. Amitriptyline was at least in large part for sleep.She has had no worsening of mood or headache in the 2 weeks since.Psychiatry has also increased melatonin at bedtime for sleep from 1 tablet to 2 tablets. There have been no other medication changes. She continues on sertraline for depression, and gabapentin and ziprasidone for bipolar disorder, both from psychiatry.She continues on tramadol from primary care for back pain.She notes no new or changing medical issues. >>>>>>>>>>>>December 09fter November 11, 2023 Neurology follow-up encounter, for the first 2 weeks she continue with the same benefit of her migraine prevention medications Aimovig, topiramate 50 mg twice a day and propranolol 60 mg twice a day: 1-2 migraines per week only one bad enough to use Ubrelvy.Insurance then began denying Aimovig as they have switched their preference midstream to competing brand of monthly subcutaneous migraine prevention CGRP inhibitor based medications.Over the 2 weeks during which she was laid for Aimovig, headaches/migraines increased to 3-4/week and she needed Ubrelvy each time.2 days ago, we gave her a sample of Aimovig. It is too soon to tell if there has been improvement. There have been no other medication changes or new or changing medical conditions in her work with other healthcare providers. >>>>>>>>>>>>November 11, 2023Since October 07, 2023 Neurology follow-up encounter, topiramate 100 twice a day -> 50 twice a day, migraines even better, 1-2/week, used Ubrelvy just once per week. >>>>>>>>>>>>October 07 2023Since May 28 2023 neurology follow-up, she reports that she is a little bit fine . She says that her headaches are not so bad, she is having about 3 migraines per week on propranolol 60 mg twice daily (reduced from 80 mg twice daily summer 2022 in the context of dizziness) and topiramate 100 mg twice daily and aimovig 140mg/mL monthly autoinjector. She continues Ubrelvy for breakthrough migraine which she says she usually takes about 2-3 times per week. She has not had any interval changes. >>>>>>>>>>>>May 28 2023Since April 24, 2023, she says that it is going much better on propranolol 60 mg twice daily. The dizziness is less. After our last visit, she continued propranolol 60 mg in the morning and 80 mg at night for 2 weeks and then reduced to 60 mg twice daily. She would like to continue this regimen along with Aimovig 140 mg monthly autoinjector, topiramate 100 mg twice daily and Ubrelvy for breakthrough. She is getting mild headaches but they are not severe. >>>>>>>>>>>>April 24fter her March 18, 2023 neurology follow-up, she reduced propranolol to 40 mg in the morning (she used 0.5 of 80 mg tablets that she still has at home from her previous prescription) and 60 mg at night for 2 weeks but she started getting more and more headache pain so she went back to 60 mg in the morning and 80 mg at night. She says the dizziness is less now and she would like to stay at this dose. She comes in with a cane today and I asked her about it. She was given an exercise program to try and lose weight and was on an exercise machine, had some back pain and fell and then got her right knee swollen. She has been using the cane ever since then for the last 3 weeks. She states she saw her primary care but she is not on any new medications. She is working with Andreina Greer APRN, [facility] comprehensive pain management center and will be having an injection to her low back on May 01. >>>>>>>>>>>> r 2022Since January 23, 2023 neurology follow-up, she reports that she is doing fine . I asked the exact amount of propranolol that she is taking, she is taking one 60 mg tablet in the morning and one 80 mg tablet at night. She does think that it is helped reduce some of the dizziness which is less, 3 may be 2 times per week. She has not had any other medication changes. >>>>>>>>>>>>January 23 2023Follow-up today is for dizziness and tolerance of propranolol reductionSince December 19 2022, she says that she is doing good. She says the dizziness is about the same and that headaches are better. I asked her exactly how much propranolol she is on right now. She explains ? you lowered the dose to 60 in the morning and 80 at night? . Associated this for a while and just reduced it to 60 in the morning and 60 at night this past January 20.She also mentions that Aimovig was sent to the house which was much better for her. She continues topiramate 100 mg every 12 hours and amitriptyline 75 mg from psychiatry.She has not had any other med changes. >>>>>>>>>>>>December 19 2022 Follow-up to review prior authorization process for Aimovig and discuss dizziness. Since her November 28, 2022 neurology follow-up, Aimovig 140 mg/mL was initially denied but has since been approved on appeal until June 01, 2023. She has continued benefit from the Aimovig 140 mg/mL with migraines reduced to about 2/week and less severe than before, ? not like a big headache? . She has to drink the pill less (Ubrelvy). She has not had side effects. She continues on topiramate 100 mg twice daily, propranolol 80 mg twice daily and is also on amitriptyline 75 mg from psychiatry.She has had ongoing dizziness which is becoming more frequent. She has some blurry vision. She gets it with the headaches as part of her aura but she has also been to her blanker press operator/ophthalm ologist and had her glasses changed but it does not seem to be helping with the blurriness. She uses her hands to indicate a slight narrowing and she does say that she sees little spots. It can be worse with standing. >>>>>>>>>>>>November 28 2022Follow-up trial of Aimovig 140 mg/mLAt her October 29, 2022 neurology follow-up after trial of Aimovig 70 mg/mL, we decided to move forward with trial of Aimovig 140 mg/mL as this is what she had been on in the past. She says that she is doing a little bit good, much better than before? . She is having migraines about 2-3 times per week and they only last a few hours compared to 3-4 times per week the previous month on Aimovig 70 mg/mL. She has not had any side effect. She wishes to continue it. >>>>>>>>>>>>October 29, 2021 follow-up Aimovig retrialSince October 01, 2022 neurology follow-up, she says that she is a little bit fine . She goes on to say that the headache started again. She came in later that day to picker / packer the Aimovig 70 mg/mL sample and ? put it in? on October 02, 2022. She has not had any side effect. I asked for clarification about the headaches as she felt that Botox did not help last time. Currently, she awakens with headaches 3-4 times per week. They last anywhere from 3 to 4 hours up to the whole day with a severity of 10/10. I asked how they compared to last month as that is when she told me that she felt the Botox was not working anymore. She says that 2 months ago they were worse ? Oh my God, they were every day which gave me dizziness and nausea? .She shows me her medication list and says that she has nothing for dizziness because she has an allergy to metoclopramide and meclizine and has been getting dizzy with migraines. She says her only other medication change was an injection in her back a few months ago and she was started on gabapentin 100 mg nightly about a month ago. She has not noticed any additive effect for migraine prevention. Continues on Ubrelvy for breakthrough migraine but feels that the number that she is allowed is insufficient and runs out. >>>>>>>>>>>>>>October 01fter her Botox injections on August 14, 2022. She called the office for increasing headaches.At her prior follow up on July 09, 2022 neurology for headaches, she was doing quite well on her present regimen which includes Topamax 100 mg every 12 hours and propranolol 80 mg twice daily and Botox injections every 91 days. Currently, she says that she is ? a little bit fine? . I asked her about the increasing headaches, she initially does not reply and then says it is because she is having headaches every day. Sometimes, she has to take Ubrelvy before going to bed but she only gets 10 pills and it is not enough. Also, in the interim, concurrent rizatriptan was disallowed by insurance. She had previously been using both. She does not feel that that is the issue however. She feels that the Botox is not doing anything now. She said that she used to be on a monthly injector and she would like to go back to it. It used to be mailed to her house. She said that when she was on Aimovig it was doing me good . We reviewed that in February 2020, she had been on Aimovig for about a year going from 70 mg/mL up to 140 mg/mL and was at a Crossroads where she needed to decide between Botox or Aimovig. >>>>>>>>>>>>>>>Domingo hein of August 14, 2022 Botox injections comments regarding symptoms (see procedure note for further discussion on detailed units):Benefit reported July 09 continues, just two headaches per week often mild although occasionally intense, no wearing off. Headaches start predominantly on the right often towards the front occasionally toward the back, right shoulder not triggering as it has in the past; left shoulder feels tight. July 09, 2022 neurology follow-up reviewedSince May 16, 2022 Botox injections at which time she reported the previous injections helped a little, not as much , mindy reports that she has been doing well and that she had a good holiday. Today, she reports ? this time after botox it is doing good? . She goes on to explain that this time he did more. Additional sample was used.At her last visit, I had referred her to physical therapy. She has gone and found this was helpful. She has a home exercise plan with stretches. She has run out of Ubrelvy needs a refill. She is not taking Maxalt at all anymore. It has been reapproved for 10 tablets/month through June 13, 2023.She continues topiramate 100 mg twice daily and propranolol 80 mg twice daily for prevention. She does not have any new medications or new diagnoses.05/16/[address] Lieberman at the time of her Botox injections reviewed:: Botox injections helped a little, not as much for her headaches which were more on the right, not that bad on the left, two or 3/week going away easily with Tylenol until 2 weeks ago since when she has had 3/week intense headaches but still going away in 1.5 hours with Ubrelvy.physical therapy also helped with some neck discomfort. Presenting symptomatology is reviewed from August 27, 2017 initial neurology consultation She has had headaches for many years, daily headaches for many years, worsening in recent years despite many interventions. Headache is typically on and off during every day but has been continuous for the last 2 weeks. Involves her whole head and the back of her neck with pounding pain light and sound sensitivity, sensitivity to smell, nausea and emesis up to 4 times a day. There is associated blurry vision. She can think of no recent changes in stressors.Past history includes pituitary adenoma status post surgery as a child. She had no lasting problems after that surgeryno problems with vision, no problems with hormones. Recent brain MRI by previous neurologist showed no relevant new abnormality. She is on Topamax 100 mg twice a day without side effects. She remembers no benefit from this medication. She is on propranolol 80 mg twice a day. A trial off this medication resulted in worsening so that she recently restarted. Meclizine helps only partially for nausea, she stopped the medication but restarted it because nausea was worse. Fioricet has helped historically but no longer helps. She has taken other medications in the more distant past but cannot remember their names. They did not help sufficiently. She also has a psychiatric comorbidity. She is on amitriptyline 150 mg nightly, sertraline 50 mg daily, Klonopin 1 mg 3 times a day, Geodon 60 mg twice a day and melatonin 1 mg from psychiatry. Her diagnosis is bipolar disorder anxiety and depression. She feels that it is fairly well controlled and she continues to work with psychiatry on this. Imer Lieberman MD [address] [place] [address] Iván [place], [id number], [facility] 03/23/2024 13:04:47 OBGyn Episode No OBEpisode recorded.
== END 2024-06-21 10:15 | disposition home or self-care (01) ==
PROVIDERS: PCP Internal Medicine; Visit Provider Internal Medicine
DX: N60.82 Other benign mammary dysplasias of left breast (principal)

== ENCOUNTER → 2024-06-21 09:46 | Outpatient (BNVA) | payer OTHER, SELFPAY | PROVIDERS: PCP Internal Medicine; Visit Provider Internal Medicine | DX: N60.02 Solitary cyst of left breast (principal) | CPT/HCPCS: 96127; 99212 ==

== ENCOUNTER 2024-06-28 09:22 | Outpatient (AMB) | payer OTHER, SELFPAY ==
--- OUTSIDE RECORDS SUMMARY | 2024-06-28 09:25 | XMS_ITS | Data Portability ---
Author Organization [facility], [employer] Address [address] [place] [address] Care Team Providers Care Day Light Relief Operator Name Role Phone LATIA RASHID Referring Provider LATIA RASHID Primary Care Provider [phone] Assessment Encounter Date Assessment Date Assessment LastModified by Organization Details LastModified Time 05/28/2023 05/28/2023 IMPRESSION: --Migraine with visual aura characterized as blurry --Dizziness with blurred vision increasing in the context of improving headaches, possibly related to migraine possibly orthostasis -improved with reduction of propranolol from 80 mg twice daily to 60 mg twice daily --Status post Botox injections most recently on August 14 2022 for multifocal painful muscle spasm and shoulders, neck and scalp, and associated headache. --Decreased effectiveness of Botox reported after August 14, 2022 injections with daily headaches and insufficient number of Ubrelvy for breakthrough migraine, previously reported improved benefit after May 16 injections compared to the February 13 injections CURRENTLY: May 28, 2023: She has reduced propranolol [...] continue on propranolol 60 mg twice daily. In preparation for her visit today, I reviewed the propranolol prescription in [place] and noted that she had a 90-day [...] will continue 60 mg twice daily dose. We will not make any changes to her [...] renewal of Aimovig on October 31, 2022. Medication update November 28, 2022 (complete list with April 2023 confirmation of medications from [facility]) -From [facility]: propranolol 60 mg twice daily topiramate 100 mg twice daily, Aimovig 140 mg/mL monthly autoinjector and Ubrelvy 100 mg as needed for breakthrough migraine from [facility] (she was also concurrently on rizatriptan [...] is not currently on methocarbamol or metoclopramide. To review: -- Reduction of dizziness with ongoing benefit of migraine prevention on propranolol 60 mg twice daily April 2023, reduced from 80 mg twice [...] injections which supports a strong muscular component. PLAN Ute Ashlyn May 28, 2023 FOR DIZZINESS ASSOCIATED WITH MIGRAINES: Continue propranolol 60 mg every and every night (slowly reduced from 80 mg twice daily between December 2022 and April 2023) FOR MIGRAINE PREVENTION -Continue propranolol as above -CONTINUE Aimovig (generic name erenumab) 140 mg/mL subcutaneous autoinjector, one injection (1 mL, 140 mg) beneath the skin (``subcutaneously?) and outer upper arm, top of thigh, or abdomen. Side effects may include injection site reaction, constipation, or cramps. Postmarketing studies suggest that depression is an unusual but possible side effect. If side effect is mild, stay on the medication for a few cycles to see if you get used to this medication. If side effects are not mild, or you do not get used to the medication, stop the medication. -Approved to Nov 01 2023 CONTINUE Topamax 100 mg tablet every 12 hours You are also on amitriptyline 75 mg from psychiatry CONTINUE CPAP for sleep apnea and continue working with your sleep medicine team to optimize your settings. CONTINUE exercise plan that you learned from physical therapy FOR BREAKTHROUGH MIGRAINES CONTINUE Ubrelvy 100 mg. Take 1 tablet at the beginning of migraine, may repeat after 2 hours, maximum 2 doses (200 mg per) 24 hours. -Authorization expires in May, we will request renewal authorization Follow-up in early September before authorization for Aimovig expires October 31, 2022, earlier if you have worsening of migraines or neurologic issues arise leon Not available 05/28/2023 10:34:49 10/07/2023 10/07/2023 IMPRESSION: --Migraine with visual aura characterized as blurry --Dizziness with blurred vision increasing in the context of improving headaches, possibly related to migraine possibly orthostasis -improved with reduction of propranolol from 80 mg twice daily to 60 mg twice daily --Status post Botox injections most recently on August 14 2022 for multifocal painful muscle spasm and shoulders, neck and scalp, and associated headache. --Decreased effectiveness of Botox reported after August 14, 2022 injections with daily headaches and insufficient number of Ubrelvy for breakthrough migraine, previously reported improved benefit after May 16 injections compared to the February 13 injections CURRENTLY: October 07, 2023: Migraines have been reasonably well [...] with April 2023 confirmation of medications from [facility]) -From [facility]: propranolol 60 mg twice daily topiramate 100 mg twice daily, Aimovig 140 mg/mL monthly autoinjector and Ubrelvy 100 mg as needed for breakthrough migraine from [facility] (she was also concurrently on rizatriptan [...] is not currently on methocarbamol or metoclopramide. To review: --October 07, 2023: Request to reduce topiramate -- Reduction of dizziness with ongoing benefit of migraine prevention on propranolol 60 mg twice daily April 2023, reduced from 80 mg twice [...] injections which supports a strong muscular component. PLAN Ute Goldberg October 07, 2023 FOR MIGRAINE PREVENTION You asked about reducing topiramate. I agree that this is reasonable if you feel that your migraines are well-controlled on Aimovig to reduce the medication burden. We initially discussed reducing your topiramate by 25 mg/month however upon further reflection, with 100 mg tablets and with close follow-up, I think it is reasonable to by 25% which is 50 mg and is equal to half of your 100 mg tablet. Therefore, Reduce topiramate as follows: Topiramate 100 mg tablets: Change 1 tablet every morning to 1/2 tablet every morning Continue 1 tablet every night. Follow-up in 1 month. Pedraza preguntado por la reducci??n del topiramato. Estoy de acuerdo en que es razonable si tim que fernando migra??as est??n marcelino controladas con Aimovig para reducir la carga de medicaci??n. Inicialmente hablamos de reducir hilario topiramato en 25 mg/mes, eduardo despu??s de reflexionar un poco m??s, con pastillas de 100 mg y con un seguimiento estrecho, creo que es razonable reducirlo en un 25%, lo que equivale a 50 mg y a la mitad de hilario pastilla de 100 mg. Por lo tanto, Reduzca el topiramato cristiano sigue: Topiramato 100 mg comprimidos: Cambie 1 comprimido cada ma??laurent por 1/2 comprimido cada ma??laurent. Contin??e con 1 comprimido cada noche. Seguimiento en 1 mes. Traducci??n realizada con la versi??n gratuita del traductor [employer] (with edits by me) -Continue propranolol 60mg twice daily -CONTINUE Aimovig (generic name erenumab) 140 mg/mL subcutaneous autoinjector, one injection (1 mL, 140 mg) beneath the skin (``subcutaneously?) and outer upper arm, top of thigh, or abdomen. Side effects may include injection site reaction, constipation, or cramps. Postmarketing studies suggest that depression is an unusual but possible side effect. If side effect is mild, stay on the medication for a few cycles to see if you get used to this medication. If side effects are not mild, or you do not get used to the medication, stop the medication. -Approved through November 01, 2023, we will request continued authorization CONTINUE Topamax 100 mg tablet every 12 hours You are also on amitriptyline 75 mg from psychiatry CONTINUE CPAP for sleep apnea and continue working with your sleep medicine team to optimize your settings. CONTINUE exercise plan that you learned from physical therapy FOR DIZZINESS ASSOCIATED WITH MIGRAINES: Continue propranolol 60 mg every and every night (slowly reduced from 80 mg twice daily between December 2022 and April 2023) FOR BREAKTHROUGH MIGRAINES CONTINUE Ubrelvy 100 mg. Take 1 tablet at the beginning of migraine, may repeat after 2 hours, maximum 2 doses (200 mg per) 24 hours. -Authorization expires in May, we will request renewal authorization Follow-up in 1 month to see how you do with 25% reduction of topiramate and if going well to consider further reduction leon Not available 10/12/2023 22:12:35 11/11/2023 11/11/2023 IMPRESSION: --Migraine with visual aura characterized as [...] 1-2/week, hold Ubrelvy just once per week. >>>>>>>>>>>>November 11, 2023 I suggest further taper [...] with April 2023 confirmation of medications from [facility]) -From [facility]: propranolol 60 mg twice daily topiramate 100 mg twice daily, Aimovig 140 mg/mL monthly autoinjector and Ubrelvy 100 mg as needed for breakthrough migraine from [facility] (she was also concurrently on rizatriptan [...] on methocarbamol or metoclopramide. PLAN Ute Ashlyn November 11, 2023 FOR MIGRAINE PREVENTION CONTINUE Topiramate 50 mg twice daily CONTINUE propranolol 60mg twice daily CONTINUE Aimovig (generic name erenumab) 140 mg/mL subcutaneous autoinjector, one injection (1 mL, 140 mg) beneath the skin (``subcutaneously?) and outer upper arm, top of thigh, or abdomen. (You are also on amitriptyline 75 mg from psychiatry ) FOR BREAKTHROUGH MIGRAINES CONTINUE Ubrelvy 100 mg. Take 1 tablet at the beginning of migraine, may repeat after 2 hours, maximum 2 doses (200 mg per) 24 hours. CONTINUE CPAP for sleep apnea and continue working with your sleep medicine team to optimize your settings. CONTINUE exercise plan that you learned from physical therapy Follow-up 6 months cyndy Not available 11/11/2023 11:31:58 12/10/2023 12/10/2023 IMPRESSION: --Migraine with visual aura characterized as [...] on Aimovig but switching soon to Ajovy. >>>>>>>>>>>>December 10, 2023 I provided her with a sample of Ajovy in case approval of Ajovy has any delays. I cautioned her not to take it until 1 month after she took the sample of Aimovig we gave her 2 days ago and she understands. I told her to keep the extra dose in her refrigerator and to sheepskin pickler the new prescription when it gets. Therefore, [...] with April 2023 confirmation of medications from [facility]) -From [facility]: propranolol 60 mg twice daily topiramate 100 mg twice daily, Aimovig 140 mg/mL monthly autoinjector and Ubrelvy 100 mg as needed for breakthrough migraine from [facility] (she was also concurrently on rizatriptan [...] on methocarbamol or metoclopramide. PLAN Ute Ashlyn December 10, 2023 FOR MIGRAINE PREVENTION CONTINUE Topiramate 50 mg twice daily CONTINUE propranolol 60mg twice daily CONTINUE Aimovig (generic name erenumab) 140 mg/mL subcutaneous autoinjector, one injection (1 mL, 140 mg) beneath the skin (``subcutaneously?) and outer upper arm, top of thigh, or abdomen. (You are also on amitriptyline 75 mg from psychiatry ) FOR BREAKTHROUGH MIGRAINES CONTINUE Ubrelvy 100 mg. Take 1 tablet at the beginning of migraine, may repeat after 2 hours, maximum 2 doses (200 mg per) 24 hours. CONTINUE CPAP for sleep apnea and continue working with your sleep medicine team to optimize your settings. CONTINUE exercise plan that you learned from physical therapy Follow-up 6 months cyndy Not available 12/10/2023 12:16:16 03/23/2024 03/23/2024 IMPRESSION: --Migraine with visual aura [...] extra dose in her refrigerator and to sheepskin pickler the new prescription when it gets. Therefore, [...] with April 2023 confirmation of medications from [facility]) -From [facility]: propranolol 60 mg twice daily topiramate 100 mg twice daily, Aimovig 140 mg/mL monthly autoinjector and Ubrelvy 100 mg as needed for breakthrough migraine from [facility] (she was also concurrently on rizatriptan [...] None recorded. Imaging None recorded. Medication Orders topiramat e 100 mg tablet 2022 023 [id number] [address] [place], [address], 05/28/2023 09:56:01 propranol ol 60 mg tablet 2022 023 [id number] [address] [place], [address], 05/28/2023 09:56:01 Aimovig Autoinjec tor 140 mg/mL subcutane ous auto-inje ctor 2022 023 [id number] [address] [place] [address], [id number], 03/23/2024 12:59:57 Ubrelvy 100 mg tablet 2022 023 [id number] [address] [place], [address], 05/28/2023 09:56:01 topiramat e 100 mg tablet 2023 024 [id number] [address] [place], [address], 10/07/2023 10:22:21 propranol ol 60 mg tablet 2023 024 [facility] #[id number], [address] [place], [address], 10/07/2023 10:22:21 Aimovig Autoinjec tor 140 mg/mL subcutane ous auto-inje ctor 2023 024 [id number] [address] [place] [address], [id number], 03/23/2024 12:59:57 Ubrelvy 100 mg tablet 2023 024 [facility] #[id number], [address] [place], [address], 10/07/2023 10:22:21 propranol ol 60 mg tablet 2023 024 [id number] [address] [place], [address], 11/11/2023 11:21:02 topiramat e 50 mg tablet 2023 024 [id number], [address] [place], [address], 11/11/2023 11:21:03 Aimovig Autoinjec tor 140 mg/mL subcutane ous auto-inje ctor 2023 024 [id number] [address] [place], [address], 03/23/2024 12:59:57 Ubrelvy 100 mg tablet 2023 024 [id number] [address] [place], [address], 11/11/2023 11:21:02 Ajovy 225 mg/1.5 mL subcutane ous auto-inje ctor 2023 024 [facility]acy #[id number], [address] [place], [address], 12/10/2023 12:17:38 Ajovy 225 mg/1.5 mL subcutane ous auto-inje ctor 2023 024 [facility] #[id number], [address] [place], [address], 03/23/2024 12:47:06 Ubrelvy 100 mg tablet 2023 024 [facility] #[id number], [address] [facility], [place], [address], 03/23/2024 12:47:07 Patient TargetsNo targets recorded. 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 We discussed options to continue this 24-hour regimen [...] not discuss the addition of rizatriptan through [facility] which we have discussed previously as she [...] over the potential side effects. She will sheepskin pickler a sample today. She will follow-up in [...] on meclizine as needed for dizziness. 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 She will sheepskin pickler a sample today. She will follow-up in [...] on meclizine as needed for dizziness. 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 She was running out of UbrelTaifatech for breakthrough migraine reported October 01, 2022. [...] not discuss the addition of rizatriptan through [employer] which we have discussed previously as she [...] over the potential side effects. She will sheepskin pickler a sample today. 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 She will sheepskin pickler a sample today. 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 She was running out of UbrelTaifatech for breakthrough migraine reported October 01, 2022. [...] not discuss the addition of rizatriptan through [facility] which we have discussed previously as she [...] over the potential side effects. She will sheepskin pickler a sample today. She will follow-up in [...] Chronic condition with exacerbation; prescription medication management [email or web address] Not available 03/23/2024 13:04:40 Reason for Referral None Reported. 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 Procedures Surgical History Date Name Laterality Status Provider Name and Address Organization Details Recorded Time 4 botulinum injection completed Imer Lieberman MD [address] [place] [address] [place], [address], [facility] 03/23/2024 12:37:46 4 botulinum injection completed Imer Lieberman MD [address] [place] [address], [place], [phone], [facility] 12/10/2023 11:56:10 4 botulinum injection completed Imer Lieberman MD [address] [place] [address], [place], [phone], [facility] 11/11/2023 11:10:22 4 botulinum injection completed ENRIKE NORTON PA-C [address] [place] [address] [place], [address], [facility] 10/07/2023 10:03:49 3 botulinum injection completed ENRIKE NORTON PA-C [address] [place] [address] [place], [address], [facility] 05/28/2023 09:39:33 3 botulinum injection completed ENRIKE NORTON PA-C [address] [place] [address] [place], [address], [facility] 04/24/2023 10:42:13 3 botulinum injection completed ENRIKE NORTON PA-C [address] [place] [address] [place], [address], [facility] 03/18/2023 10:47:21 3 botulinum injection completed ENRIKE NORTON PA-C [address] [place] [address] [place], [address], [facility] 01/23/2023 09:59:39 3 botulinum injection completed ENRIKE NORTON PA-C [address] [place] [address] [place], [address], [facility] 12/19/2022 11:33:40 3 botulinum injection completed ENRIKE NORTON PA-C [address] [facility] B, [place]AK[place], [address], [facility] 11/28/2022 13:56:45 3 botulinum injection completed ENRIKE NORTON PA-C [address] [facility] B, [place]AK[place], [address], [facility] 10/29/2022 10:47:52 3 botulinum injection completed ENRIKE NORTON PA-C [address] [facility] B, YAK[place], [address], [facility] 10/01/2022 13:50:41 3 botulinum injection completed Imer Lieberman MD [address] [place] [address] B, [place]AK[place] Mon[place], [address], [facility] 08/14/2022 17:00:39 3 botulinum injection completed ENRIKE NORTON PA-C [address] [facility] B, YAK[place], [address], [facility] 07/09/2022 14:05:58 2 botulinum injection completed Imer Lieberman MD [address] [place] [address] B, YAK[place] Mon[place], [phone], [facility] 05/16/2022 13:33:52 2 botulinum injection completed ENRIKE NORTON PA-C [address] [place] [address] B, YAK[place] Mon[place], [address], [facility] 03/14/2022 14:10:23 2 botulinum injection completed Imer Lieberman MD [address] [place] [address] B, YAKOV Mon[place], [phone], [facility] 02/13/2022 09:15:23 2 botulinum injection completed ENRIKE NORTON PA-C [address] [place] [address] B, YAK[place], [phone], [facility] 12/06/2021 13:50:32 2 botulinum injection completed Imer Lieberman MD [address] [place] [address], [place]AK[place], [phone], [facility] 11/07/2021 13:30:06 2 botulinum injection completed ENRIKE NORTON PA-C [address] [place] [address], [place], [phone], [facility] 09/05/2021 14:12:15 2 botulinum injection completed Imer Lieberman MD [address] [place] [address], [place]AK[place] Mon[place], [phone], [facility] 07/25/2021 15:27:34 2 botulinum injection completed ENRIKE NORTON PA-C [address] [place] [address], YAK[place] Montero, [phone], [facility] 07/12/2021 08:55:03 1 botulinum injection completed ENRIKE NORTON PA-C [address] [place] [address], [place]AK[place] Mon[place]o, [phone], [facility] 05/29/2021 22:54:52 1 botulinum injection completed Imer Lieberman MD [address] [place] [address], YAK[place] Montero, [phone], [facility] 04/25/2021 14:30:46 1 botulinum injection completed Imer Lieberman MD [address] [place] [address] [place] Monter[place], [phone], [facility] 01/24/2021 19:05:02 1 botulinum injection completed Imer Lieberman MD [address] [place] [address] [place] Monter[place], [phone], [facility] 10/25/2020 18:09:08 Imaging Results None recorded. 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 Dystonia 73939439 G24.3 Facial spasm 17498217 G5 1.39 Migraine without aura 56 560797 G43.009 [id number] Imer Lieberman MD [facility] [address] [place] [address] Gordo MONTERO YAKOV [id number] 4 01/24/2021 14:50:22 01/25/2021 08:16:40 Idiopathic non-familial dystonia 352893868 G24.1 Dystonia 84822945 G24.3 Facial spasm 27202303 G5 1.39 Migraine without aura 56 784018 G43.009 [id number] Imer Lieberman MD [facility] [address] [place] [address] JOSE MONTERO YAKOV [id number] 4 02/28/2021 11:51:24 02/28/2021 12:29:37 Idiopathic non-familial dystonia 684958580 G24.1 Dystonia 32496547 G24.3 Facial spasm 00770635 G5 1.39 Migraine without aura 56 574048 G43.009 [id number] Imer Lieberman MD [facility] [address] [place] [address] JOSE MONTERO YAKOV [id number] 4 04/25/2021 12:22:14 04/26/2021 07:40:15 Idiopathic non-familial dystonia 104317786 G24.1 Dystonia 74262212 G24.3 Facial spasm 41499564 G5 1.39 Migraine without aura 56 845282 G43.009 [id number] Imer Lieberman MD [facility] [address] [place] [address] JOSE RETANAYAKOV RICHARD [id number] 4 05/29/2021 10:02:07 05/30/2021 15:05:44 Idiopathic non-familial dystonia 649157769 G24.1 Dystonia 33976208 G24.3 Facial spasm 12554898 G5 1.39 Migraine without aura 56 414586 G43.009 Migraine with aura 49154 06 G43.109 [id number] Imer Lieberman MD [facility] [address] [place] [address] Gordo RETANAWINSTONYAKOV RICHARD [id number] 4 07/12/2021 08:51:06 08/03/2021 15:14:49 Idiopathic non-familial dystonia 109660702 G24.1 Dystonia 58743625 G24.3 Facial spasm 50109979 G5 1.39 Migraine without aura 56 268661 G43.009 [id number] Imer Lieberman MD [facility] [address] [place] [address] Gordo RETANAWINSTONYAKOV RICHARD [id number] 4 07/25/2021 13:52:53 07/25/2021 16:35:44 Idiopathic non-familial dystonia 305535698 G24.1 Dystonia 97862717 G24.3 Facial spasm 12054028 G5 1.39 Migraine without aura 56 751890 G43.009 [id number] Imer Lieberman MD [facility] [address] [place] [address] Gordo YAKOV MONTERO [id number] 4 09/05/2021 14:01:17 09/10/2021 10:57:43 Idiopathic non-familial dystonia 446306564 G24.1 Dystonia 05040470 G24.3 Facial spasm 09309322 G5 1.39 Migraine without aura 56 307355 G43.009 5019 Imer Lieberman MD [facility] [address] [place] [address] Gordo YAKOV MONTERO [id number] 4 11/07/2021 12:25:50 11/07/2021 18:58:37 Idiopathic non-familial dystonia 622740303 G24.1 Dystonia 50651561 G24.3 Facial spasm 35634178 G5 1.39 Migraine without aura 56 702974 G43.009 [id number] Imer Lieberman MD [facility] [address] [place] [address] Gordo YAKOV MONTERO [id number] 4 12/06/2021 13:06:48 12/10/2021 15:27:19 Idiopathic non-familial dystonia 933669508 G24.1 Dystonia 09322056 G24.3 Facial spasm 69300159 G5 1.39 Migraine without aura 56 875857 G43.009 6156 Imer Lieberman MD [facility] [address] [place] [address] [place] [id number] 4 02/13/2022 07:56:35 02/13/2022 09:24:50 Idiopathic non-familial dystonia 315127324 G24.1 Dystonia 02231700 G24.3 Facial spasm 55841270 G5 1.39 Migraine without aura 56 609001 G43.009 6451 Imer Lieberman MD [facility] [address] [place] [address] [place] [address]-786 4 03/14/2022 13:58:56 03/19/2022 09:35:39 Idiopathic non-familial dystonia 004211938 G24.1 Dystonia 40539226 G24.3 Facial spasm 49170066 G5 1.39 Migraine without aura 56 042398 G43.009 7012 Imer Lieberman MD [facility] [address] [place] [address] [place] [id number] 4 05/16/2022 11:40:07 05/16/2022 15:55:55 Idiopathic non-familial dystonia 949694722 G24.1 Dystonia 79317595 G24.3 Facial spasm 82956564 G5 1.39 Migraine without aura 56 824263 G43.009 7440 Imer Lieberman MD [facility] [address] [place] [address] [place] [address]-423 4 07/09/2022 13:59:24 07/25/2022 12:39:21 Idiopathic non-familial dystonia 992357576 G24.1 Dystonia 72462162 G24.3 Facial spasm 41056591 G5 1.39 Migraine without aura 56 125574 G43.009 Migraine with aura 03864 06 G43.109 7846 Imer Lieberman MD [facility] [address] [place] [address] [place] [id number] 4 08/14/2022 15:04:31 08/14/2022 17:43:36 Idiopathic non-familial dystonia 558089218 G24.1 Dystonia 06333318 G24.3 Facial spasm 80713098 G5 1.39 Migraine without aura 56 608038 G43.009 8449 ENRIKE NORTON PA-C [facility] [address] [place] [address] [place] [id number] 4 10/01/2022 13:45:47 10/03/2022 11:40:32 Idiopathic non-familial dystonia 415792713 G24.1 Dystonia 46460702 G24.3 Facial spasm 18594861 G5 1.39 Migraine without aura 56 942220 G43.009 Migraine with aura 08845 06 G43.109 8764 Imer Lieberman MD [facility] [address] [place] [address] JOSE Caro YAKOV MONTERO [id number] 4 10/29/2022 10:18:41 11/04/2022 15:06:43 Idiopathic non-familial dystonia 367921218 G24.1 Dystonia 95257683 G24.3 Facial spasm 74563776 G5 1.39 Migraine without aura 56 990555 G43.009 Migraine with aura 96018 06 G43.109 9112 ENRIKE NORTON PA-C [facility] [address] [place] [address] Gordo YAKOV MONTERO [id number] 4 11/28/2022 13:27:59 12/02/2022 15:28:22 Idiopathic non-familial dystonia 491063580 G24.1 Dystonia 16884233 G24.3 Facial spasm 80366821 G5 1.39 Migraine without aura 56 187074 G43.009 Migraine with aura 53757 06 G43.109 9373 Imer Lieberman MD [facility] [address] [place] [address] JOSE Gordo YAKOV MONTERO [id number] 4 12/19/2022 11:07:15 12/23/2022 16:34:25 Idiopathic non-familial dystonia 319889796 G24.1 Dystonia 56335037 G24.3 Facial spasm 77272482 G5 1.39 Migraine without aura 56 713524 G43.009 Migraine with aura 12314 06 G43.109 9887 Imer Lieberman MD [facility] [address] [place] [address] [place] [address]-888 4 01/23/2023 09:21:21 02/10/2023 16:21:14 Idiopathic non-familial dystonia 773451239 G24.1 Dystonia 69118096 G24.3 Facial spasm 85181123 G5 1.39 Migraine without aura 56 788644 G43.009 Migraine with aura 82275 06 G43.109 [id number] Imer Lieberman MD [facility] [address] [place] [address] [place] [id number] 4 03/18/2023 10:30:58 03/19/2023 17:32:28 Idiopathic non-familial dystonia 010248338 G24.1 Dystonia 50165977 G24.3 Facial spasm 12728797 G5 1.39 Migraine without aura 56 988476 G43.009 Migraine with aura 03402 06 G43.109 [id number] ENRIKE NORTON PA-C [facility] [address] [place] [address] Gordo YAKOV MONTERO [id number] 4 04/24/2023 10:15:35 04/30/2023 10:38:58 Idiopathic non-familial dystonia 995520766 G24.1 Dystonia 90326851 G24.3 Facial spasm 03196091 G5 1.39 Migraine without aura 56 421984 G43.009 Migraine with aura 86624 06 G43.109 [id number] Imer Lieberman MD [facility] [address] [place] [address] JOSE Caro YAKOV MONTERO [id number] 4 05/28/2023 09:14:15 05/29/2023 16:35:04 Idiopathic non-familial dystonia 349763181 G24.1 Dystonia 34205800 G24.3 Facial spasm 97218290 G5 1.39 Migraine without aura 56 007354 G43.009 Migraine with aura 83006 06 G43.109 53508 Imer Lieberman MD [facility] [address] [place] [address] Gordo YAKOV MONTERO 25910-968 4 10/07/2023 09:31:55 10/13/2023 13:14:20 Idiopathic non-familial dystonia 151253003 G24.1 Dystonia 96680359 G24.3 Facial spasm 51055632 G5 1.39 Migraine without aura 56 228804 G43.009 Migraine with aura 61610 06 G43.109 [id number] Imer Lieberman MD [facility] [address] [place] [address] [place] [address]-264 4 11/11/2023 10:36:51 11/11/2023 11:43:45 Idiopathic non-familial dystonia 161859865 G24.1 Dystonia 04416051 G24.3 Facial spasm 77380373 G5 1.39 Migraine without aura 56 764907 G43.009 Migraine with aura 46387 06 G43.109 [id number] Imer Lieberman MD [facility] [address] [place] [address] [place] [address]-244 4 12/10/2023 11:11:30 12/10/2023 12:19:37 Idiopathic non-familial dystonia 305672962 G24.1 Dystonia 50412376 G24.3 Facial spasm 83775503 G5 1.39 Migraine without aura 56 300114 G43.009 Migraine with aura 68562 06 G43.109 [id number] Imer Lieberman MD [facility] [address] [place] [address] [place] [address]-816 4 03/23/2024 11:39:14 03/23/2024 17:16:47 Idiopathic non-familial dystonia 588538753 G24.1 Dystonia 28553401 G24.3 Facial spasm 85269980 G5 1.39 Migraine without aura 56 536812 G43.009 Migraine with aura 46621 06 G43.109 Health Concerns Section Related Observation LastModified by Organization Detai ls LastModified Time None Recorded Concern Status LastModified by Organization Details LastModified Time None Recorded Advance Directives Directive None Recorded Payers Encounter Date Sequence Insurance Name Policy Number Policy Leone Covered Member ID Leone Member ID Guarantor Name 05/28/2023 1 [facility] [place] [place] Ute Ashlyn [id number] Ute Ashlyn 10/07/2023 1 [facility] (O) [place] Ute Ashlyn [id number] Ute Ashlyn 11/11/2023 1 [facility] (O) [place] Ute Ashlyn [id number] Ute Ashlyn 12/10/2023 1 [facility] (O) [place] Ute Ashlyn [id number] Ute Ashlyn 03/23/2024 1 [facility] (O) [place] Ute Ashlyn [id number] Ute Ashlyn Notes Date Note Type Note Provider Name and Address Organization Details Recorded Time 05/28/2023 text/html Follow-up breakthrough headache in the setting of Botox injections for multifactorial muscle spasm exacerbating daily headaches for many years. Past history includes a psychiatric comorbidity and fibromyalgia. She is accompanied by her , Nura; Not present, Catherine, her sister. >>>>>>>>>>>>May 28 2023Since April 24, 2023, she [...] She is working with Andreina Greer APRN, [facility] comprehensive pain management center and will be having an injection to her low back on May 01. >>>>>>>>>>>>Septdeliae r 2022Since January 23, 2023 neurology follow-up, [...] but she has also been to her machine sweeper brush maker/ophthalm ologist and had her glasses changed but [...] She came in later that day to sheepskin pickler the Aimovig 70 mg/mL sample and ? [...] with psychiatry on this. Imer Lieberman MD [address] [place] [address], [phone], [facility] 05/28/2023 13:26:47 10/07/2023 text/html Follow-up breakthrough headache in the setting of Botox injections for multifactorial muscle spasm exacerbating daily headaches for many years. Past history includes a psychiatric comorbidity and fibromyalgia. She is accompanied by her , Nura; Not present, Catherine, her sister. >>>>>>>>>>>>October 07 2023Since May 28 2023 neurology [...] She is working with Andreina Greer APRN, [facility] comprehensive pain management center and will be having an injection to her low back on May 01. >>>>>>>>>>>>Lalito r 2022Since January 23, 2023 neurology follow-up, [...] but she has also been to her machine sweeper brush maker/ophthalm ologist and had her glasses changed but [...] She came in later that day to sheepskin pickler the Aimovig 70 mg/mL sample and ? [...] with psychiatry on this. Imer Lieberman MD [address] [place] [address] [place], [phone], [facility] 10/13/2023 11:40:53 11/11/2023 text/html Follow-up of his tory of debilitation headache--Past history includes a psychiatric comorbidity and fibromyalgia.--She is accompanied by her , Nura; Not present, Catherine, her sister. >>>>>>>>>>>>October 07 2023Since May 28 2023 neurology [...] She is working with Andreina Greer APRN, [facility] comprehensive pain management center and will be having an injection to her low back on May 01. >>>>>>>>>>>>e r 2022Since January 23, 2023 neurology follow-up, [...] but she has also been to her machine sweeper brush maker/ophthalm ologist and had her glasses changed but [...] She came in later that day to sheepskin pickler the Aimovig 70 mg/mL sample and ? [...] with psychiatry on this. Imer Lieberman MD [address] [place] [address] [place], [phone], [facility] 11/11/2023 11:32:39 12/10/2023 text/html Follow-up of his tory of debilitation headache--Past history includes a psychiatric comorbidity and fibromyalgia.--She is accompanied by her , Nura; Not present, Catherine, her sister. >>>>>>>>>>>>December 09fter November 11, 2023 Neurology follow-up [...] She is working with Andreina Greer APRN, [facility] comprehensive pain management center and will be having an injection to her low back on May 01. >>>>>>>>>>>>Lalito r 2022Since January 23, 2023 neurology follow-up, [...] but she has also been to her machine sweeper brush maker/ophthalm ologist and had her glasses changed but [...] She came in later that day to sheepskin pickler the Aimovig 70 mg/mL sample and ? [...] with psychiatry on this. Imer Lieberman MD [address] [place] [address] [place], [phone], [facility] 12/10/2023 12:17:54 03/23/2024 text/html Follow-up of his tory of debilitation headache--Past history includes a bipolar disorder and depression, and fibromyalgia and back pain.--She is accompanied by her , Nura; Not present, Catherine, her sister. >>>>>>>>>>>>Lalito r 2023Since December 10, 2023 Neurology follow-up [...] She is working with Andreina Greer APRN, [facility] comprehensive pain management center and will be having an injection to her low back on May 01. >>>>>>>>>>>>Septdeliae r 2022Since January 23, 2023 neurology follow-up, [...] but she has also been to her machine sweeper brush maker/ophthalm ologist and had her glasses changed but [...] She came in later that day to sheepskin pickler the Aimovig 70 mg/mL sample and ? [...] with psychiatry on this. Imer Lieberman MD [address] [place] [address] [place], [phone], [facility] 03/23/2024 13:04:47 OBGyn Episode No OBEpisode recorded.
--- NOTE | 2024-06-28 09:26 | A.OFFVIS_ITS ---
Vital Signs 06/28/24 09:34 Height 5 ft 4 in Weight 231 lb BMI 39.6 BP 122/69 Blood Pressure Location Lt radial Position Sitting Pulse 77 Pulse Source Pulse Oximeter Pulse Oximetry (%) 98 Oxygen Delivery Method Room Air Intake Visit Reasons: Pain in unspecified joint/last seen 2022 Intake Note: Pain today 02/06 Net Mender Required: No Accompanied by: Spouse Allergies meclizine Adverse Reaction (Verified 06/28/24 09:35) tachycardia metoclopramide Adverse Reaction (Verified 06/28/24 09:35) tachycardia HPI Comments Details: Patient presents today for follow up today for chronic low back pain with radiation into her left lower extremity. She was last seen in our office in May 2023. Patient reports left lower back radiating upward her left side and into her left posterior leg and into her left ankle. Denies any recent injury or falls. Patient reports intermittent radicular pain on right side too but not as often since her last injection. Patient is hesitant toward back surgery and reports [facility] injections and PT has been effective. She also reports right knee pain due to arthritis and would like to undergo gel injection. She last received cortisone injection for left knee pain in March 2024 through [facility]. Patient continues to take gabapentin, baclofen and also tramadol which is prescribed by her PCP. Denies any recent cough, cold, infection, fever, bladder or bowel dysfunction, saddle anesthesia, weakness, foot drop or other significant changes in medical history since last office visit. Past Procedures: 03/31/24: Left knee cortisone injection at [facility]--good pain relief 05/01/23: Bilateral L5-S1 TFESI-70% pain relief for for 6 months 10/09/22: Bilateral L5-S1 TFESI-80% pain relief for 6 months [facility] Medical History Overactive bladder Diarrhea Morbid obesity with BMI of 40.0-44.9, adult Biliary dyskinesia Elevated TSH Obesity (BMI 30-39.9) Depression Anxiety Insomnia Obstructive sleep apnea Vitamin D deficiency 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 myelopathy or radiculopathy Elevated LFTs Allergic rhinitis Asthma Migraine Pure hypercholesterolemia Benign essential hypertension Diabetes mellitus IBS (irritable bowel syndrome) Gastroparesis Surgical History Status post epidural steroid injection History of cardiac cath Hx of tubal ligation Hx of colonoscopy (~03/2018) Hx of endoscopy History of surgery of head Hx of hysterectomy (~08/2011) Family History Father Diabetes Hypertension Heart problem Mother Arthritis Diabetes Hypertension Maternal Grandmother Breast cancer, Onset Age: 72 Family/Other Diabetes Hypertension Heart problem Social History Household Members: Spouse Housing: House Are you a primary pet care worker to a significant other at home: No Do you presently have visiting nurse or other home services: No Alcohol intake: current Alcohol intake frequency: does not drink Comment: NOT INDICATED Patient Tobacco Use Status: Never used Tobacco e-Cigarette/Vaping Use: Never Used Second Hand Smoke Exposure: No Advance Directives Date on File: 03/20/16 service: No Current occupational status: disabled Cognitive needs: No Hearing needs: No Vision needs: Yes Female Reproductive History Menstrual Age of Menarche: 13 Review of Systems Const All systems reviewed & are unremarkable except as noted in HPI and below Physical Exam General: Appears afebrile. No acute distress. Alert and oriented. Mood and affect appropriate. Follows and participates in conversation appropriately. Respiratory effort is unlabored. No cough. Able to transition from sit to stand unassisted. Ambulates with slightly antalgic gait without limping. Back/Spine/Pelvis Other: Limited lumbar ROM due to pain. Lumbar extension and axial rotation reproduces moderate pain. Flexion is intact and reproduces mild pain. Positive facet loading bilaterally. Demonstrates 5/5 strength of quadriceps on the right and 4/5 on the left as well as flexion/dorsiflexion of bilateral feet against resistance. Straight leg rise with dorsiflexion is negative bilaterally. DTR intact, patellar reflex diminished bilaterally. Alessandro test positive bilaterally. No groin pain with I/E hip rotations bilaterally. Valsalva maneuver is negative. Cervical Spine: cervical ROM normal and No Cervical spine tenderness Thoracic/Lumbar Spine: thoracic and lumbar spine normal to inspection, No Thoracic/lumbar spine scar(s), Lasegue's sign positive (localized-left, diffuse- right) bilateral, pain with thoraco-lumbar ROM, paraspinal muscle tenderness, thoraco-lumbar ROM limited, No thoracic spinal tenderness and lumbar spinal tenderness at L4 and at L5 Pelvis: buttock tenderness bilaterally Sacroiliac joints: bilaterally tender to palpation Results Reviewed Results Reviewed: MR LUMBAR SPINE WITHOUT CONTRAST 02/26/23 CLINICAL INFORMATION: Lower back pain and bilateral leg pain COMPARISON: MR lumbar spine 09/14/2021 FINDINGS: Normal anatomic alignment. No suspicious marrow signal or focal osseous lesion. Mixed type I and type II endplate marrow signal changes at L5-S1. The vertebral body heights are maintained. Moderate disc desiccation and height loss at L5-S1. The conus medullaris terminates at the level of L2. The distal spinal cord is normal in appearance. The cauda equina nerve roots appear normal. Redemonstration of thin fatty infiltration of the filum terminale. No significant abnormalities of the paraspinal musculature. Limited evaluation of the intra-abdominal structures without significant abnormalities. Partially visualized large left renal cyst. The abdominal aorta is of normal contour and caliber. SPINAL LEVELS: T12-L1: No significant spinal canal or neural foraminal narrowing L1-L2: No significant spinal canal or neuroforaminal narrowing. L2-L3: No significant spinal canal or neuroforaminal narrowing. L3-L4: No significant spinal canal or neuroforaminal narrowing. L4-L5: No significant spinal canal or neuroforaminal narrowing. Mild facet arthropathy. L5-S1: Broad-based disc bulge, mild facet arthropathy. Stable subarticular zone narrowing with possible contact of the traversing S1 nerve roots and mild to moderate bilateral neural foraminal narrowing with abutment of the exiting L5 nerve roots. IMPRESSION: Stable degenerative disc and facet disease at L5-S1 with subarticular zone narrowing with possible contact of the traversing S1 nerve roots and mild to moderate bilateral neural foraminal narrowing with abutment of the exiting L5 nerve roots. XR LUMBOSACRAL SPINE 07/28/20 CLINICAL INFORMATION: Low back pain COMPARISON: Previous x-ray January 2015 TECHNIQUE: Three views of the lumbosacral spine. FINDINGS: Bone alignment is normal. No fracture or dislocation is seen. There is degenerative disc disease at L5-S1. There is lower lumbar spine facet arthritis. IMPRESSION: Degenerative disc disease at L5-S1 and lower lumbar spine facet arthritis. Assessment & Plan Assessment & Plan (1) Right knee pain: Code(s): M25.561 - Pain in right knee Category: Medical (2) Lumbar radiculopathy: Code(s): M54.16 - Radiculopathy, lumbar region Category: Medical (3) Sacroiliac joint pain: Code(s): M53.3 - Sacrococcygeal disorders, not elsewhere classified Category: Medical (4) Lumbar spondylosis: Code(s): M47.816 - Spondylosis without myelopathy or radiculopathy, lumbar region Category: Medical (5) Disc disease, degenerative, lumbar or lumbosacral: Code(s): M51.37 - Other intervertebral disc degeneration, lumbosacral region Category: Medical Plan Schedule Diagnostic Bilateral L3-L4 DR L5 MBB injections with local and fluoroscopy for axial low back pain for potential Sprint PNS trial or RFA for a longer term pain management. Informational pamphlets provided to patient. Refills provided for gabapentin and baclofen per patient's request. Schedule right knee intra-articular gel injections with local only. We will obtain right knee x-ray to assess degree of arthritis. All questions and concerns have been answered and patient agreed with the plan. Follow up after injections and sooner if needed. Anticoagulation: Patient not on anticoagulant Justification for interventional therapy: ? Patient with average pain > 6/10 ? Patient has exhausted conservative therapy, NSAIDs, physical therapy The risks, consequences, alternatives, and benefits of various treatment options were discussed with the patient in great detail, including conservative management, injections and procedures. Orders: Orders XR knee RT 3V Today M25.561 - Pain in right knee Medications: Refilled baclofen 10 mg PO BID 30 days PRN 60 tabs 2RF for muscle spasm M51.36 - Other intervertebral disc degeneration, lumbar region, M62.830 - Muscle spasm of back gabapentin 300 mg PO BEDTIME 30 caps 3RF for pain M51.36 - Other intervertebral disc degeneration, lumbar region, M54.16 - Radiculopathy, lumbar region Coding Level of Care Code Est Pt Level 4 (50507) Complex EM visit Add On G2211 Diagnoses Right knee pain M25.561 Lumbar radiculopathy M54.16 Sacroiliac joint pain M53.3 Lumbar spondylosis M47.816 Disc disease, degenerative, lumbar or lumbosacral M51.37
[2024-06-28 09:34] VITALS: BP 122/69; PULSE 77; O2SAT 98; BMI 39.6
== END 2024-06-28 09:46 | disposition home or self-care (01) ==
PROVIDERS: PCP Internal Medicine; Visit Provider Nurse Practitioner Family
DX: M54.16 Radiculopathy, lumbar region (principal); M25.561 Pain in right knee; M53.3 Sacrococcygeal disorders, not elsewhere classified; M47.816 Spondylosis without myelopathy or radiculopathy, lumbar region; M51.37 Other intervertebral disc degeneration, lumbosacral region
CPT/HCPCS: 99214; G2211

== ENCOUNTER → 2024-06-28 09:22 | Outpatient (BNVA) | payer OTHER, SELFPAY | PROVIDERS: PCP Internal Medicine; Visit Provider Nurse Practitioner Family | DX: M25.561 Pain in right knee (principal); M47.26 Other spondylosis with radiculopathy, lumbar region; G89.29 Other chronic pain; M53.3 Sacrococcygeal disorders, not elsewhere classified; M51.379 Other intervertebral disc degeneration, lumbosacral region without mention of lumbar back pain or lower extremity pain; M51.360 Other intervertebral disc degeneration, lumbar region with discogenic back pain only; M62.830 Muscle spasm of back | CPT/HCPCS: 99212 ==

== ENCOUNTER 2024-07-08 10:28 | Outpatient (AMB) | payer OTHER, SELFPAY ==
--- NOTE | 2024-07-08 10:31 | MHC.OFFVIS ---
Vital Signs 07/08/24 10:41 Height 5 ft 4 in Weight 233 lb BMI 40.0 BP 126/60 Blood Pressure Location Lt brachial Position Sitting Pulse 64 Intake Visit Reasons: Cutaneous cyst areolar region left breast Intake Note: Patient is seen in office for evaluation of a cutaneous cyst of the left breast. Pt c/o: has a lump on the left nipple for aprox 2 months, admits to redness and a new lump on top of it, denies discharge or prior breast concerns mm:08/25/23 mm sched: 08/30/24 Merchandise Support Associate Required: No Accompanied by: Family/Other Allergies meclizine Adverse Reaction (Verified 07/08/24 10:39) tachycardia metoclopramide Adverse Reaction (Verified 07/08/24 10:39) tachycardia Medication List - Last Reconciled 07/08/24 by Jaime Minor MD acetaminophen 500 mg PO Q6H PRN [ADULT PULL UPS As directed] albuterol sulfate 90 mcg/actuation (Ventolin HFA) 2 puffs inhalation QID PRN alum-mag hydroxide-simeth 400-400-40 mg/5 mL (Mylanta Maximum Strength) 10 mL PO TID PRN amitriptyline 75 mg PO DAILY atorvastatin 20 mg PO BEDTIME 90 days baclofen 10 mg PO BID PRN 30 days blood sugar diagnostic (FreeStyle Lite Strips) TEST BLOOD SUGAR DIRECTED 3 TIMES A DAY budesonide 32 mcg/actuation 2 sprays intranasal DAILY PRN cane As directed cholecalciferol (vitamin D3) 50 mcg PO DAILY 90 days clonazepam 1 mg PO TID diaper,brief,adult,disposable (Depend Easy Fit Undergarments [facility] [place]) As directed erenumab-aooe (Aimovig Autoinjector) 140 mg subcut [id number] esomeprazole magnesium 40 mg PO DAILY [FREESTYLE LITE TEST STRIPS Test blood sugar as directed 3 times a day - E11.9 -- DIABETES] FreeStyle Lite Meter (blood-glucose meter) As directed NS fremanezumab-vfrm (Ajovy) mg subcut gabapentin 300 mg PO BEDTIME lancets (FreeStyle Lancets) As directed- 3 times a day linaclotide (Linzess) 290 mcg PO QAM liraglutide (Victoza 3-Shamir) 1.2 mg (0.2 mL) subcut DAILY melatonin 6 mg PO BEDTIME metformin 1,000 mg PO BID 90 days methylcellulose (laxative) (Fiber Therapy (methylcellulose)) 500 mg PO BID montelukast 10 mg PO BEDTIME 90 days ondansetron 4 mg sublingual TID pen needle, diabetic (Comfort EZ Pen [place]) As directed daily pioglitazone 45 mg PO DAILY propranolol 60 mg PO BID sennosides (senna) 17.2 mg (2 x 8.6 mg) PO BEDTIME PRN sertraline 50 mg PO DAILY simethicone 180 mg PO TID terconazole 0.8% 1 appful vaginal BEDTIME 3 days topiramate 100 mg PO BID tramadol 50 mg PO TID PRN 30 days triamcinolone acetonide 1 spray intranasal DAILY ubrogepant (Ubrelvy) 100 mg PO DAILY PRN ziprasidone HCl (Geodon) 80 mg PO BID HPI Comments Details: 48-year-old female patient presenting for evaluation of a cutaneous cyst of the left nipple. She 1st noted the skin change approximately 1 month ago when it became red and swollen. She also reports pain associated with the lesion. This subsequently subsided however she is still able to see a bump in the skin. She denies being placed on antibiotics in the meantime. She denies any bleeding or discharge from the site. She notes cold weather makes the lesion more prominent and painful. No changes are noted in the right breast. Her most recent mammogram performed on 08/25/2023 revealed no mammographic evidence of malignancy (BI-RADS 1). She is scheduled for her annual mammogram on 08/30/2024. Her family history is significant for a maternal grandmother with breast cancer. She denies any previous history of breast problems or breast surgery. She is in her menarche was at the age of 13. [facility] Medical History Overactive bladder Diarrhea Morbid obesity with BMI of 40.0-44.9, adult Biliary dyskinesia Elevated TSH Obesity (BMI 30-39.9) Depression Anxiety Insomnia Obstructive sleep apnea Vitamin D deficiency 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 myelopathy or radiculopathy Elevated LFTs Allergic rhinitis Asthma Migraine Pure hypercholesterolemia Benign essential hypertension Diabetes mellitus IBS (irritable bowel syndrome) Gastroparesis Surgical History Status post epidural steroid injection History of cardiac cath Hx of tubal ligation Hx of colonoscopy (~03/2018) Hx of endoscopy History of surgery of head Hx of hysterectomy (~08/2011) Family History Father Diabetes Hypertension Heart problem Mother Arthritis Diabetes Hypertension Maternal Grandmother Breast cancer, Onset Age: 72 Family/Other Diabetes Hypertension Heart problem Social History Household Members: Spouse Housing: House Are you a primary resident care associate to a significant other at home: No Do you presently have visiting nurse or other home services: No Alcohol intake: current Alcohol intake frequency: does not drink Comment: NOT INDICATED Patient Tobacco Use Status: Never used Tobacco e-Cigarette/Vaping Use: Never Used Second Hand Smoke Exposure: No Advance Directives Date on File: 03/20/16 service: No Current occupational status: disabled Cognitive needs: No Hearing needs: No Vision needs: Yes Female Reproductive History Menstrual Age of Menarche: 13 Total pregnancies: 1 Number of Living Children: 1 Review of Systems Const All systems reviewed & are unremarkable except as noted in HPI and below Physical Exam Vital Signs: Last Vital Signs Pulse 64 07/08/24 10:41 BP 126/60 07/08/24 10:41 BMI result Body Mass Index 40.0 Const General: cooperative and no acute distress Nutritional Appearance: well nourished Orientation/consciousness: patient oriented x3 Limitations: no limitations HEENT Head: Yes normocephalic and Yes atraumatic Ears: hearing grossly normal bilaterally Chest Other: Left breast: No skin change, no nipple retraction, central nipple skin lesion noted with a variegated pattern in the skin measuring approximately 4 mm in diameter with no ulceration or bleeding appreciated, no palpable mass, no enlarged lymph nodes. Findings are concerning for Paget's. Right breast: No skin change, no nipple retraction, no nipple discharge, no palpable mass, no enlarged lymph nodes Resp Effort & Inspection: normal respiratory effort, no audible wheezes, no cough and no respiratory distress Cardio Jugular venous distension: no JVD GI Inspection: Yes normal to inspection Skin Other: Warm, dry, no rash Neuro General: patient oriented x3 Extrem General: Yes no clubbing, cyanosis or edema Assessment & Plan Assessment & Plan (1) Cyst of skin of left breast: Code(s): N60.82 - Other benign mammary dysplasias of left breast Category: Medical (2) Pain of left breast: Code(s): N64.4 - Mastodynia Category: Medical Plan 48-year-old female patient presenting with an area of skin ulceration involving the left nipple with an apparent underlying mass concerning for Paget's. I reviewed the findings with the patient her family and recommended considering an excision of the skin lesion. After discussion of the procedure, risks, and alternatives, she consents to the excision of left nipple skin lesion. This will be done as a short-stay surgery. Coding Level of Care Code New Pt Level 4 (60326) Diagnoses Cyst of skin of left breast N60.82 Pain of left breast N64.4
[2024-07-08 10:41] VITALS: BP 126/60; PULSE 64; BMI 40.0
--- OUTSIDE RECORDS SUMMARY | 2024-07-08 11:07 | XMS_ITS | Data Portability ---
Author Organization [facility] [employer], ApplyKit Address [address] [facility] [place] [address] Care Team Providers Care Cassandra Developer Name Role Phone LATIA RASHID Referring Provider [...] today, I reviewed the propranolol prescription in [place] and noted that she had a 90-day [...] with April 2023 confirmation of medications from [facility]) -From [facility]: propranolol 60 mg twice daily topiramate 100 mg twice daily, Aimovig 140 mg/mL monthly autoinjector and Ubrelvy 100 mg as needed for breakthrough migraine from [facility] (she was also concurrently on rizatriptan [...] with April 2023 confirmation of medications from [facility]) -From [facility]: propranolol 60 mg twice daily topiramate 100 mg twice daily, Aimovig 140 mg/mL monthly autoinjector and Ubrelvy 100 mg as needed for breakthrough migraine from [facility] (she was also concurrently on rizatriptan [...] realizada con la versi??n gratuita del traductor [employer] (with edits by me) -Continue propranolol 60mg [...] with April 2023 confirmation of medications from [facility]) -From [facility]: propranolol 60 mg twice daily topiramate 100 mg twice daily, Aimovig 140 mg/mL monthly autoinjector and Ubrelvy 100 mg as needed for breakthrough migraine from [facility] (she was also concurrently on rizatriptan [...] extra dose in her refrigerator and to medicinal plant picker the new prescription when it gets. Therefore, [...] with April 2023 confirmation of medications from [facility]) -From [facility]: propranolol 60 mg twice daily topiramate 100 mg twice daily, Aimovig 140 mg/mL monthly autoinjector and Ubrelvy 100 mg as needed for breakthrough migraine from [facility] (she was also concurrently on rizatriptan [...] extra dose in her refrigerator and to medicinal plant picker the new prescription when it gets. Therefore, [...] with April 2023 confirmation of medications from [facility]) -From [facility]: propranolol 60 mg twice daily topiramate 100 mg twice daily, Aimovig 140 mg/mL monthly autoinjector and Ubrelvy 100 mg as needed for breakthrough migraine from [facility] (she was also concurrently on rizatriptan [...] topiramat e 100 mg tablet 2022 023 [id number] [address] [place], [address], 05/28/2023 09:56:01 propranol ol 60 mg tablet 2022 023 [facility] [address] [place], [address], 05/28/2023 09:56:01 Aimovig Autoinjec tor 140 mg/mL subcutane ous auto-inje ctor 2022 023 [facility] [address] [place] [address], [address], 03/23/2024 12:59:57 Ubrelvy 100 mg tablet 2022 023 [facility] [address] [place], [address], 05/28/2023 09:56:01 topiramat e 100 mg tablet 2023 024 [facility] [address] [place], [address], 10/07/2023 10:22:21 propranol ol 60 mg tablet 2023 024 [facility], [address] [place], [address], 10/07/2023 10:22:21 Aimovig Autoinjec tor 140 mg/mL subcutane ous auto-inje ctor 2023 024 [facility] [address] [place] [address], [address], 03/23/2024 12:59:57 Ubrelvy 100 mg tablet 2023 024 [facility], [address] [place], [address], 10/07/2023 10:22:21 propranol ol 60 mg tablet 2023 024 [facility] [address] [place], [address], 11/11/2023 11:21:02 topiramat e 50 mg tablet 2023 024 [facility], [address] [place], [address], 11/11/2023 11:21:03 Aimovig Autoinjec tor 140 mg/mL subcutane ous auto-inje ctor 2023 024 [facility] [address] [place], [address], 03/23/2024 12:59:57 Ubrelvy 100 mg tablet 2023 024 [facility] [address] [place], [address], 11/11/2023 11:21:02 Ajovy 225 mg/1.5 mL subcutane ous auto-inje ctor 2023 024 [facility] #0373, [address] [place], [address], 12/10/2023 12:17:38 Ajovy 225 mg/1.5 mL subcutane ous auto-inje ctor 2023 024 [facility] #[facility], [address] [place], [address], 03/23/2024 12:47:06 Ubrelvy 100 mg tablet 2023 024 [facility] #[id number], [address] [facility], [place], [address], 03/23/2024 12:47:07 Patient TargetsNo targets recorded. 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 which we have discussed previously as she [...] over the potential side effects. She will medicinal plant picker a sample today. 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 which we have discussed previously as she [...] over the potential side effects. She will medicinal plant picker a sample today. 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 She was running out of UbrelnetZentry for breakthrough migraine reported October 01, 2022. [...] not discuss the addition of rizatriptan through [employer] which we have discussed previously as she [...] over the potential side effects. She will medicinal plant picker a sample today. 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 which we have discussed previously as she [...] over the potential side effects. She will medicinal plant picker a sample today. 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 She was running out of UbrelnetZentry for breakthrough migraine reported October 01, 2022. [...] not discuss the addition of rizatriptan through [employer] which we have discussed previously as she [...] over the potential side effects. She will medicinal plant picker a sample today. 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 Procedures Surgical History Date Name Laterality Status Provider Name and Address Organization Details Recorded Time 4 botulinum injection completed Imer Lieberman MD [address] [place] [address] [place], [address], [facility] 03/23/2024 12:37:46 4 botulinum injection completed Imer Lieberman MD [address] [place] [address], YAKOV Montero, [address], [facility] 12/10/2023 11:56:10 4 botulinum injection completed Imer Lieberman MD [address] [place] [address], YAKOV Montero, [address], [facility] 11/11/2023 11:10:22 4 botulinum injection completed ENRIKE NORTON PA-C [address] [place] [address] [place], [address], [facility] 10/07/2023 10:03:49 3 botulinum injection completed ENRIKE NORTON PA-C [address] [place] [address] [place], [address], [facility] 05/28/2023 09:39:33 3 botulinum injection completed ENRIKE NORTON PA-C [address] [place] [address] [place], [phone], [facility] 04/24/2023 10:42:13 3 botulinum injection completed ENRIKE NORTON PA-C [address] [place] [address] [place], [address], [facility] 03/18/2023 10:47:21 3 botulinum injection completed ENRIKE NORTON PA-C [address] [place] [address] [place], [address], [facility] 01/23/2023 09:59:39 3 botulinum injection completed ENRIKE NORTON PA-C [address] [place] [address] [place], [address], [facility] 12/19/2022 11:33:40 3 botulinum injection completed ENRIKE NORTON PA-C [address] [facility] [address], YAKOV Montero, [address], [facility] 11/28/2022 13:56:45 3 botulinum injection completed ENRIKE NORTON PA-C [address] [facility] [address], YAKOV Montero, [address], [facility] 10/29/2022 10:47:52 3 botulinum injection completed ENRIKE NORTON PA-C [address] [facility] [address], YAKOV Monter[place], [address], [facility] 10/01/2022 13:50:41 3 botulinum injection completed Imer Lieberman MD [address] [place] [address] B, YAKOV Montero, [address], [facility] 08/14/2022 17:00:39 3 botulinum injection completed ENRIKE NORTON PA-C [address] [facility] [address], YAKOV Montero, [address], [facility] 07/09/2022 14:05:58 2 botulinum injection completed mIer Lieberman MD [address] [place] [address] B, YAKOV Montero, [address], [facility] 05/16/2022 13:33:52 2 botulinum injection completed ENRIKE NORTON PA-C [address] [place] [address] B, YAKOV Montero, [address], [facility] 03/14/2022 14:10:23 2 botulinum injection completed Imer Lieberman MD [address] [place] [address] B, YAKOV Montero, [address], [facility] 02/13/2022 09:15:23 2 botulinum injection completed ENRIKE NORTON PA-C [address] [place] [address] B, YAKOV Montero, [address], [facility] 12/06/2021 13:50:32 2 botulinum injection completed Imer Lieberman MD [address] [place] [address], YAKOV Montero, [address], [facility] 11/07/2021 13:30:06 2 botulinum injection completed ENRIKE NORTON PA-C [address] [place] [address], CameronYAKOV richard, [address], [facility] 09/05/2021 14:12:15 2 botulinum injection completed Imer Lieberman MD [address] [place] [address], YAKOV Montero, [address], [facility] 07/25/2021 15:27:34 2 botulinum injection completed ENRIKE NORTON PA-C [address] [place] [address], YAKOV Montero, [address], [facility] 07/12/2021 08:55:03 1 botulinum injection completed ENRIKE NORTON PA-C [address] [place] [address], YAKOV Montero, [address], [facility] 05/29/2021 22:54:52 1 botulinum injection completed Imer Lieberman MD [address] [place] [address], YAKOV Montero, [address], [facility] 04/25/2021 14:30:46 1 botulinum injection completed Imer Lieberman MD [address] [place] [address] YAKOV Montero, [address], [facility] 01/24/2021 19:05:02 1 botulinum injection completed Imer Lieberman MD [address] [place] [address] YAKOV Montero, [address], [facility] 10/25/2020 18:09:08 Imaging Results None recorded. 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 Dystonia 50027643 G24.3 Facial spasm 57538101 G5 1.39 Migraine without aura 56 423299 G43.009 [id number] Imer Lieberman MD [facility] [address] [place] [address] Gordo MONTERO YAKOV [address] 4 01/24/2021 14:50:22 01/25/2021 08:16:40 Idiopathic non-familial dystonia 365103862 G24.1 Dystonia 00305933 G24.3 Facial spasm 01145640 G5 1.39 Migraine without aura 56 912844 G43.009 [id number] Imer Lieberman MD [facility] [address] [place] [address] JOSE RETANAYAKOV RICHARD [address] 4 02/28/2021 11:51:24 02/28/2021 12:29:37 Idiopathic non-familial dystonia 360521070 G24.1 Dystonia 25563364 G24.3 Facial spasm 08209246 G5 1.39 Migraine without aura 56 142144 G43.009 [id number] Imer Lieberman MD [facility] [address] [place] [address] JOSE MONTEROYAKOV [address] 4 04/25/2021 12:22:14 04/26/2021 07:40:15 Idiopathic non-familial dystonia 084244562 G24.1 Dystonia 60639316 G24.3 Facial spasm 68351464 G5 1.39 Migraine without aura 56 904187 G43.009 [id number] Imer Lieberman MD [facility] [address] [place] [address] JOSE RETANAYAKOV RICHARD [address] 4 05/29/2021 10:02:07 05/30/2021 15:05:44 Idiopathic non-familial dystonia 376208865 G24.1 Dystonia 37636154 G24.3 Facial spasm 15922675 G5 1.39 Migraine without aura 56 629541 G43.009 Migraine with aura 62309 06 G43.109 [id number] Imer Lieberman MD [facility] [address] [place] [address] JOSE RETANAYAKOV RICHARD [address] 4 07/12/2021 08:51:06 08/03/2021 15:14:49 Idiopathic non-familial dystonia 494107025 G24.1 Dystonia 86254569 G24.3 Facial spasm 44344429 G5 1.39 Migraine without aura 56 197970 G43.009 [id number] Imer Lieberman MD [facility] [address] [place] [address] Gordo YAKOV MONTERO [id number] 4 07/25/2021 13:52:53 07/25/2021 16:35:44 Idiopathic non-familial dystonia 885585792 G24.1 Dystonia 51972122 G24.3 Facial spasm 12469999 G5 1.39 Migraine without aura 56 370580 G43.009 [id number] Imer Lieberman MD [facility] [address] [place] [address] Gordo YAKOV MONTERO [id number] 4 09/05/2021 14:01:17 09/10/2021 10:57:43 Idiopathic non-familial dystonia 862122319 G24.1 Dystonia 28702918 G24.3 Facial spasm 96237103 G5 1.39 Migraine without aura 56 352557 G43.009 [id number] Imer Lieberman MD [facility] [address] [place] [address] [place] [address] 4 11/07/2021 12:25:50 11/07/2021 18:58:37 Idiopathic non-familial dystonia 586189885 G24.1 Dystonia 35648118 G24.3 Facial spasm 97393464 G5 1.39 Migraine without aura 56 886691 G43.009 [id number] Imer Lieberman MD [facility] [address] [place] [address] Gordo YAKOV MONTERO [address] 4 12/06/2021 13:06:48 12/10/2021 15:27:19 Idiopathic non-familial dystonia 426022043 G24.1 Dystonia 11081243 G24.3 Facial spasm 97019543 G5 1.39 Migraine without aura 56 493893 G43.009 [id number] Imer Lieberman MD [facility] [address] [place] [address] [place] [address] 4 02/13/2022 07:56:35 02/13/2022 09:24:50 Idiopathic non-familial dystonia 477732769 G24.1 Dystonia 85504236 G24.3 Facial spasm 70262090 G5 1.39 Migraine without aura 56 094855 G43.009 [id number] Imer Lieberman MD [facility] [address] [place] [address] [place] [address] 4 03/14/2022 13:58:56 03/19/2022 09:35:39 Idiopathic non-familial dystonia 763141856 G24.1 Dystonia 09848752 G24.3 Facial spasm 09151684 G5 1.39 Migraine without aura 56 411757 G43.009 7012 Imer Lieberman MD [facility] [address] [place] [address] Gordo YAKOV MONTERO [address] 4 05/16/2022 11:40:07 05/16/2022 15:55:55 Idiopathic non-familial dystonia 062751292 G24.1 Dystonia 38737184 G24.3 Facial spasm 30673895 G5 1.39 Migraine without aura 56 367426 G43.009 [id number] Imer Lieberman MD [facility] [address] [place] [address] Gordo YAKOV MONTERO [id number] 4 07/09/2022 13:59:24 07/25/2022 12:39:21 Idiopathic non-familial dystonia 830180316 G24.1 Dystonia 21887855 G24.3 Facial spasm 14265748 G5 1.39 Migraine without aura 56 541207 G43.009 Migraine with aura 41626 06 G43.109 [id number] Imer Lieberman MD [facility] [address] [place] [address] [place] [address] 4 08/14/2022 15:04:31 08/14/2022 17:43:36 Idiopathic non-familial dystonia 002709022 G24.1 Dystonia 74672073 G24.3 Facial spasm 74462555 G5 1.39 Migraine without aura 56 986270 G43.009 [id number] ENRIKE NORTON PA-C [facility] [address] [place] [address] Gordo YAKOV MONTERO [id number] 4 10/01/2022 13:45:47 10/03/2022 11:40:32 Idiopathic non-familial dystonia 351700802 G24.1 Dystonia 13416731 G24.3 Facial spasm 80198395 G5 1.39 Migraine without aura 56 680293 G43.009 Migraine with aura 61814 06 G43.109 [id number] Imer Lieberman MD [facility] [address] [place] [address] Gordo YAKOV MONTERO [id number] 4 10/29/2022 10:18:41 11/04/2022 15:06:43 Idiopathic non-familial dystonia 577476186 G24.1 Dystonia 76826060 G24.3 Facial spasm 85704924 G5 1.39 Migraine without aura 56 116159 G43.009 Migraine with aura 51613 06 G43.109 [id number] ENRIKE NORTON PA-C [facility] [address] [place] [address] Gordo YAKOV MONTERO [id number] 4 11/28/2022 13:27:59 12/02/2022 15:28:22 Idiopathic non-familial dystonia 793963225 G24.1 Dystonia 87624762 G24.3 Facial spasm 36599742 G5 1.39 Migraine without aura 56 169458 G43.009 Migraine with aura 88546 06 G43.109 [id number] Imer Lieberman MD [facility] [address] [place] [address] JOSE Caro YAKOV MONTERO [id number] 4 12/19/2022 11:07:15 12/23/2022 16:34:25 Idiopathic non-familial dystonia 194683242 G24.1 Dystonia 08734302 G24.3 Facial spasm 11054055 G5 1.39 Migraine without aura 56 149492 G43.009 Migraine with aura 59830 06 G43.109 [id number] Imer Lieberman MD [facility] [address] [place] [address] [place] [address] 4 01/23/2023 09:21:21 02/10/2023 16:21:14 Idiopathic non-familial dystonia 919449177 G24.1 Dystonia 66013665 G24.3 Facial spasm 33923846 G5 1.39 Migraine without aura 56 745340 G43.009 Migraine with aura 16310 06 G43.109 [id number] Imer Lieberman MD [facility] [address] [place] [address] [place] [address] 4 03/18/2023 10:30:58 03/19/2023 17:32:28 Idiopathic non-familial dystonia 223539070 G24.1 Dystonia 70526575 G24.3 Facial spasm 90422348 G5 1.39 Migraine without aura 56 120478 G43.009 Migraine with aura 06591 06 G43.109 [id number] ENRIKE NORTON PA-C [facility] [address] [place] [address] Gordo YAKOV MONTERO [id number] 4 04/24/2023 10:15:35 04/30/2023 10:38:58 Idiopathic non-familial dystonia 870031774 G24.1 Dystonia 52083654 G24.3 Facial spasm 81106945 G5 1.39 Migraine without aura 56 987438 G43.009 Migraine with aura 76814 06 G43.109 [id number] Imer Lieberman MD [facility] [address] [place] [address] Gordo YAKOV MONTERO [id number] 4 05/28/2023 09:14:15 05/29/2023 16:35:04 Idiopathic non-familial dystonia 813538248 G24.1 Dystonia 97499304 G24.3 Facial spasm 11786939 G5 1.39 Migraine without aura 56 853343 G43.009 Migraine with aura 51661 06 G43.109 [id number] Iemr Lieberman MD [facility] [address] [place] [address] Gordo YAKOV MONTERO [id number] 4 10/07/2023 09:31:55 10/13/2023 13:14:20 Idiopathic non-familial dystonia 176084953 G24.1 Dystonia 23820161 G24.3 Facial spasm 03267979 G5 1.39 Migraine without aura 56 034991 G43.009 Migraine with aura 99469 06 G43.109 [id number] Imer Lieberman MD [facility] [address] [place] [address] Gordo YAKOV MONTERO [id number] 4 11/11/2023 10:36:51 11/11/2023 11:43:45 Idiopathic non-familial dystonia 831255437 G24.1 Dystonia 18877722 G24.3 Facial spasm 22350176 G5 1.39 Migraine without aura 56 123932 G43.009 Migraine with aura 25774 06 G43.109 [id number] Imer Lieberman MD [facility] [address] [place] [address] [place] [address] 4 12/10/2023 11:11:30 12/10/2023 12:19:37 Idiopathic non-familial dystonia 651894223 G24.1 Dystonia 24554184 G24.3 Facial spasm 22000545 G5 1.39 Migraine without aura 56 827662 G43.009 Migraine with aura 78587 06 G43.109 [id number] Imer Lieberman MD [facility] [address] [place] [address] [place] [address] 4 03/23/2024 11:39:14 03/23/2024 17:16:47 Idiopathic non-familial dystonia 156670967 G24.1 Dystonia 32881163 G24.3 Facial spasm 26801647 G5 1.39 Migraine without aura 56 990005 G43.009 Migraine with aura 61107 06 G43.109 Health Concerns Section Related Observation LastModified by Organization Detai ls LastModified Time None Recorded Concern Status LastModified by Organization Details LastModified Time None Recorded Advance Directives Directive None Recorded Payers Encounter Date Sequence Insurance Name Policy Number Policy Leone Covered Member ID Leone Member ID Guarantor Name 05/28/2023 1 [facility] ([facility] [employer] Ute Ashlyn [id number] Ute Ashlyn 10/07/2023 1 [facility] (O) [employer] Ute Ashlyn [id number] Ute Ashlyn 11/11/2023 1 [facility] (O) [employer] Ute Ashlyn [id number] Ute Ashlyn 12/10/2023 1 [facility] (O) [employer] Ute Ashlyn [id number] Ute Ashlyn 03/23/2024 1 [facility] (O) [employer] Ute Ashlyn [id number] Ute Ashlyn Notes Date Note Type Note [...] She is working with Andreina Greer APRN, [facility] comprehensive pain management center and will [...] but she has also been to her molasses preparer/ophthalm ologist and had her glasses changed but [...] She came in later that day to medicinal plant picker the Aimovig 70 mg/mL sample and ? [...] with psychiatry on this. Imer Lieberman MD [address] [place] [address], [phone], [facility] 05/28/2023 13:26:47 10/07/2023 text/html Follow-up breakthrough headache [...] She is working with Andreina Greer APRN, [facility] comprehensive pain management center and will [...] but she has also been to her molasses preparer/ophthalm ologist and had her glasses changed but [...] She came in later that day to medicinal plant picker the Aimovig 70 mg/mL sample and ? [...] with psychiatry on this. Imer Lieberman MD [address] [place] [address] [place], [address], [facility] 10/13/2023 11:40:53 11/11/2023 text/html Follow-up of his [...] She is working with Andreina Greer APRN, [facility] comprehensive pain management center and will [...] but she has also been to her molasses preparer/ophthalm ologist and had her glasses changed but [...] She came in later that day to medicinal plant picker the Aimovig 70 mg/mL sample and ? [...] with psychiatry on this. Imer Lieberman MD [address] [place] [address] [place], [address], [facility] 11/11/2023 11:32:39 12/10/2023 text/html Follow-up of his [...] She is working with Andreina Greer APRN, [facility] comprehensive pain management center and will [...] but she has also been to her molasses preparer/ophthalm ologist and had her glasses changed but [...] She came in later that day to medicinal plant picker the Aimovig 70 mg/mL sample and ? [...] with psychiatry on this. Imer Lieberman MD [address] [place] [address] [place], [phone], [facility] Neurology [facility] 12/10/2023 12:17:54 03/23/2024 text/html Follow-up of his tory of debilitation headache--Past history includes a bipolar disorder and depression, and fibromyalgia and back pain.--She is accompanied by her , Nura; Not present, Catherine, her sister. >>>>>>>>>>>>Septembe r 2023Since December 10, 2023 Neurology follow-up [...] She is working with Andreina Greer APRN, [facility] comprehensive pain management center and will be having an injection to her low back on May 01. >>>>>>>>>>>>Febembe r 2022Since January 23, 2023 neurology follow-up, [...] but she has also been to her molasses preparer/ophthalm ologist and had her glasses changed but [...] She came in later that day to medicinal plant picker the Aimovig 70 mg/mL sample and ? [...] with psychiatry on this. Imer Lieberman MD [address] [place] [address] [place], [phone], [facility] Neurology [facility] 03/23/2024 13:04:47 OBGyn Episode No OBEpisode recorded.
== END 2024-07-08 10:50 | disposition home or self-care (01) ==
PROVIDERS: PCP Internal Medicine; Visit Provider Surgery
DX: N60.82 Other benign mammary dysplasias of left breast (principal); N64.4 Mastodynia
CPT/HCPCS: 99204

== ENCOUNTER → 2024-07-08 10:28 | Outpatient (BNVA) | payer OTHER, SELFPAY | PROVIDERS: PCP Internal Medicine; Visit Provider Surgery | DX: N60.82 Other benign mammary dysplasias of left breast (principal); N64.4 Mastodynia | CPT/HCPCS: 99202 ==

== ENCOUNTER 2024-07-26 10:40 | Day surgery (SDC) | payer OTHER, SELFPAY ==
[2024-07-26] VITALS (7 sets, daily range): BP systolic 116–136; BP diastolic 66–81; PULSE 58–70; RESP 16; TEMP 36.1–36.7; O2SAT 98–100; BMI 39.2
[2024-07-26 12:24] LABS: Glucose, Whole Blood 103 mg/dL (60-115)
[2024-07-26] MEDS: Lactated Ringers 1,000 ML 100 ML IVCONT (12:29)
--- NOTE | 2024-07-26 12:32 | MHC.SHP ---
Pre-Procedural Eval Section A - 24 Hr Update-Section A only Date of Service: 07/26/24 The patient is an INPATIENT: No Changes since office visit: Yes Patient answered all questions; No Cold of Flu in the past 2 weeks, No New Medical Problems and No Changes in Medication The patient has been examined within 24 hours of the surgical procedure. The History & Physical has been completed within 30 days and I have reviewed it.: Yes Section B - Complete if H&P > 30 days Chief Complaint: Other benign mammary dysplasias,mastodynia Allergies: Allergies Allergy/AdvReac Type Severity Reaction Status Date / Time meclizine AdvReac tachycardia Verified 07/08/24 10:39 metoclopramide AdvReac tachycardia Verified 07/08/24 10:39 Plan Diagnosis/Plan: Unchanged I have reviewed the history and physical and performed a pertinent physical examination on my patient. No changes have occurred unless specified. Time Spent With Patient Time: Total time managing care of this patient today ____ minutes.
--- NOTE | 2024-07-26 12:35 | P.CONAN_ITS ---
Documented by User: Haylie Hollingsworth NP 07/23/24 12:14 HPI - Anesthesia Eval Consult details Narrative: 48yo F for Left Excision Skin Lesion on nipple 2021 w/u for SOB/CP negative cardiac cath Anesthesia Pre-Procedure Meds Is the patient on any of the following meds?: GLP1/DPP4 PMFSH Active Problems Active Problems: All Active Problems Right knee pain (Acute) Cyst of skin of left breast (Acute) Arthralgia of multiple sites (Acute) Bilateral wrist pain (Acute) Left ankle pain (Acute) Right wrist pain (Acute) Left wrist pain (Acute) Right ankle pain (Acute) Labial cyst (Acute) Vulvar lump (Acute) Patellofemoral arthritis of left knee (Acute) Paronychia of finger of left hand (Acute) Paronychia of both thumbs (Acute) Tear of MCL (medial collateral ligament) of knee (Acute) Left knee pain (Acute) Left lateral ankle pain (Acute) Hx of hysterectomy (Acute ~08/2011) Epigastric abdominal pain (Acute) History of recent fall (Acute) Morbid obesity (Acute) Elevated vitamin B12 level (Acute) Dry mouth and eyes (Acute) Edema of both lower legs (Acute) Muscle spasm of back (Acute) Lumbar degenerative disc disease (Acute) Thoracic back pain (Acute) Fungal infection (Acute) Encounter for gynecological examination with Papanicolaou smear of cervix (Acute) Lumbar radiculopathy (Acute) Lumbar spondylosis (Acute) Dyspnea (Acute) Sebaceous cyst of labia (Acute) Abnormal nuclear stress test (Acute) Abnormal stress ECG with treadmill (Acute) Shortness of breath (Acute) Precordial chest pain (Acute) Recurrent chest pain (Acute) Renal cyst (Acute) Pain of left breast (Acute) Stool incontinence (Acute) Ovarian cyst (Acute) C. difficile diarrhea (Acute) Weight loss (Acute) Blood in stool (Acute) Disc disease, degenerative, lumbar or lumbosacral (Acute) Sacroiliac joint pain (Acute) Back pain (Acute) Atypical facial pain (Acute) Chronic cholecystitis without calculus (Acute) Lump of scalp (Acute) Nausea and vomiting (Acute) RUQ abdominal pain (Acute) Abdominal bloating (Acute) GERD (gastroesophageal reflux disease) (Acute) Chronic idiopathic constipation (Acute) Diarrhea (Acute) History of cardiac cath (Acute) Overactive bladder (Acute) Morbid obesity with BMI of 40.0-44.9, adult (Acute) Biliary dyskinesia (Acute) Elevated TSH (Acute) Obesity (BMI 30-39.9) (Acute) Depression (Acute) Anxiety (Acute) Insomnia (Acute) Obstructive sleep apnea (Acute) Vitamin D deficiency (Acute) 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 myelopathy or radiculopathy (Acute) Elevated LFTs (Acute) Allergic rhinitis (Acute) Asthma (Acute) Migraine (Acute) Pure hypercholesterolemia (Acute) Benign essential hypertension (Acute) Diabetes mellitus (Acute) Past Medical History Medical History Overactive bladder Diarrhea Morbid obesity with BMI of 40.0-44.9, adult Biliary dyskinesia Elevated TSH Obesity (BMI 30-39.9) Depression Anxiety Insomnia Obstructive sleep apnea Vitamin D deficiency 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 myelopathy or radiculopathy Elevated LFTs Allergic rhinitis Asthma Migraine Pure hypercholesterolemia Benign essential hypertension Diabetes mellitus IBS (irritable bowel syndrome) Gastroparesis Family History Family History Father Diabetes Hypertension Heart problem Mother Arthritis Diabetes Hypertension Maternal Grandmother Breast cancer, Onset Age: 72 Family/Other Diabetes Hypertension Heart problem Family history of problems with anesthesia: No Surgical History Surgical History Status post epidural steroid injection History of cardiac cath Hx of tubal ligation Hx of colonoscopy (~03/2018) Hx of endoscopy History of surgery of head Hx of hysterectomy (~08/2011) History of Problems with Anesthesia: No Social History Social History Household Members: Spouse Housing: House Are you a primary personal care assistant to a significant other at home: No Do you presently have visiting nurse or other home services: No Alcohol intake: current Alcohol intake frequency: former alcohol drinker Comment: NOT INDICATED Patient Tobacco Use Status: Never used Tobacco e-Cigarette/Vaping Use: Never Used Second Hand Smoke Exposure: No Use of substances other than those prescribed or required for medical reasons: No Advance Directives: No Advance Directives Information Provided: Yes Advance Directives on File: No Advance Directives Date on File: 03/20/16 Patient : No service: No Current occupational status: disabled Cognitive needs: No Hearing needs: No Vision needs: Yes Meds Allergies Allergy/AdvReac Type Severity Reaction Status Date / Time meclizine AdvReac tachycardia Verified 07/08/24 10:39 metoclopramide AdvReac tachycardia Verified 07/08/24 10:39 Home Medications ?Medication ?Instructions ?Recorded ?Confirmed ?Last Taken ?Type melatonin 3 mg tablet 6 mg PO BEDTIME 06/28/20 07/08/24 Unknown History ziprasidone HCl 80 mg capsule 80 mg PO BID 06/28/20 07/08/24 07/26/24 History (Nadira) amitriptyline 75 mg tablet 75 mg PO DAILY 08/21/21 07/08/24 Unknown History erenumab-aooe 140 mg/mL 140 mg subcut [id number] 02/24/23 07/08/24 Unknown History subcutaneous auto-injector (Aimovig Autoinjector) ubrogepant 100 mg tablet (Ubrelvy) 100 mg PO DAILY PRN Migraine 02/24/23 07/08/24 Unknown History Headache propranolol 60 mg tablet 60 mg PO BID 06/02/23 07/08/24 Unknown History sertraline 50 mg tablet 50 mg PO DAILY 02/25/24 07/08/24 Unknown History fremanezumab-vfrm 225 mg/1.5 mL mg subcut 03/02/24 07/08/24 Unknown History subcutaneous auto-injector (Ajovy) topiramate 100 mg tablet 100 mg PO BID 06/28/24 07/08/24 Unknown History Exam Pertinent Lab Results Pertinent Lab Results: Laboratory Tests 03/19/23 05/07/24 09:40 10:00 WBC 7.3 6.1 Hgb 11.9 L Hct 38.4 Plt Count 282 Sodium 139 140 Potassium 4.0 4.0 Chloride 108 108 Carbon Dioxide 23 22 BUN 11 10 Creatinine 0.72 0.81 Narrative Narrative: Echocardiogram done 04/16/2022 showed EF 70%, no regional wall motion abnormalities, no valve abnormalities. Exercise stress test done on 04/03/2022 with exercise 4 minutes 40 seconds and report of 8/10 anterior chest discomfort without EKG changes. She then underwent a pharmacological nuclear stress test on 04/26/2022 showing distal lateral, apical and inferior apical ischemia, EF 74%, t.i.d. not present. She continue to report symptoms and then underwent a cardiac catheterization on 06/11/2022 showing normal coronary arteries. Nuclear stress test result was felt to be a false positive. Assessment and Plan Assessment Anesthesia Assessment: Chart Reviewed Final Anesthetic Review Family History of Problems with Anesthesia: No History of Problems with Anesthesia: No Documented by User: Wendie Ta DO 07/26/24 12:38 HPI - Anesthesia Eval Anesthesia Pre-Procedure Meds Is the patient on any of the following meds?: GLP1/DPP4 PMFSH Past Medical History Medical History Overactive bladder Diarrhea Morbid obesity with BMI of 40.0-44.9, adult Biliary dyskinesia Elevated TSH Obesity (BMI 30-39.9) Depression Anxiety Insomnia Obstructive sleep apnea Vitamin D deficiency 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 myelopathy or radiculopathy Elevated LFTs Allergic rhinitis Asthma Migraine Pure hypercholesterolemia Benign essential hypertension Diabetes mellitus IBS (irritable bowel syndrome) Gastroparesis Family History Family History Father Diabetes Hypertension Heart problem Mother Arthritis Diabetes Hypertension Maternal Grandmother Breast cancer, Onset Age: 72 Family/Other Diabetes Hypertension Heart problem Family history of problems with anesthesia: No Surgical History Surgical History Status post epidural steroid injection History of cardiac cath Hx of tubal ligation Hx of colonoscopy (~03/2018) Hx of endoscopy History of surgery of head Hx of hysterectomy (~08/2011) History of Problems with Anesthesia: No Social History Social History Household Members: Spouse Housing: House Are you a primary personal care assistant to a significant other at home: No Do you presently have visiting nurse or other home services: No Alcohol intake: current Alcohol intake frequency: former alcohol drinker Comment: NOT INDICATED Patient Tobacco Use Status: Never used Tobacco e-Cigarette/Vaping Use: Never Used Second Hand Smoke Exposure: No Use of substances other than those prescribed or required for medical reasons: No Advance Directives: No Advance Directives Information Provided: Yes Advance Directives on File: No Advance Directives Date on File: 03/20/16 Patient : No service: No Current occupational status: disabled Cognitive needs: No Hearing needs: No Vision needs: Yes Meds Allergies Allergy/AdvReac Type Severity Reaction Status Date / Time meclizine AdvReac tachycardia Verified 07/08/24 10:39 metoclopramide AdvReac tachycardia Verified 07/08/24 10:39 Home Medications ?Medication ?Instructions ?Recorded ?Confirmed ?Last Taken ?Type melatonin 3 mg tablet 6 mg PO BEDTIME 06/28/20 07/08/24 Unknown History ziprasidone HCl 80 mg capsule 80 mg PO BID 06/28/20 07/08/24 07/26/24 History (Nadira) amitriptyline 75 mg tablet 75 mg PO DAILY 08/21/21 07/08/24 Unknown History erenumab-aooe 140 mg/mL 140 mg subcut [id number] 02/24/23 07/08/24 Unknown History subcutaneous auto-injector (Aimovig Autoinjector) ubrogepant 100 mg tablet (Ubrelvy) 100 mg PO DAILY PRN Migraine 02/24/23 07/08/24 Unknown History Headache propranolol 60 mg tablet 60 mg PO BID 06/02/23 07/08/24 Unknown History sertraline 50 mg tablet 50 mg PO DAILY 02/25/24 07/08/24 Unknown History fremanezumab-vfrm 225 mg/1.5 mL mg subcut 03/02/24 07/08/24 Unknown History subcutaneous auto-injector (Ajovy) topiramate 100 mg tablet 100 mg PO BID 06/28/24 07/08/24 Unknown History Exam Exam Date and Time: 07/26/24 1235 Height,Weight and Vital Signs: Height 5 ft 4 in Weight 103.532 kg Airway Mallampati Class: II TM Dist: >3cm Neck ROM: Full Loose/Missing/Broken Teeth: No (patient denies any loose or broken teeth) Heart: S1S2 Lungs: CTAB Assessment and Plan Assessment Anesthesia Assessment: Anesthesia Plan Discussed and Chart Reviewed Final Anesthetic Review Family History of Problems with Anesthesia: No History of Problems with Anesthesia: No NPO: Yes ASA Class: III Final Preanesthetic Review: No Changes in Pt Med Stat, Meds/Allgs Chart Reviewed, Consent Obtained/Reviewed and Anes Risks/Benef Reviewed Patient Risk: Intermediate Procedure Risk: Low Anesthetic Plan Anesthetic Plan: MAC: and Agree w/ Assess. and Plan Disposition: Standard PACU
--- NOTE | 2024-07-26 13:20 | W.PM.OPN ---
Operative Note Operative Note Date of Service: 07/26/24 Narrative: Preoperative diagnosis: Skin lesion left nipple Postoperative diagnosis: Same Procedure: Excision of skin lesion left nipple Surgeon: Jaime Minor MD Occupational Health Coordinator: Richa Mendiola PA-C Anesthesia: Mac Indications for procedure: 48-year-old female patient presenting with an area of nipple retraction with a irrigated skin pattern in the central portion of the nipple with an underlying mass. Lesion measures approximately 1 cm diameter. Operative findings: 1 cm variegated skin lesion left nipple Specimen: Left nipple lesion Estimated blood loss: Less than 2 mL Complications: None Procedure details: Patient was brought to the OR and placed in a supine position. After administering MAC, the patient's left breast was prepped with ChloraPrep and draped in a sterile fashion. A surgical time-out was called the consent confirmed. Patient received preoperative antibiotics and Venodyne boots were in place. Local anesthesia was infiltrated around the left nipple. An elliptical incision to include the entire skin lesion was then performed using a 15 blade. This was carried down into the subcutaneous tissue using electrocautery. The lesion was then excised off of the breast tissue using electrocautery. Lesion was passed off the table and sent to pathology for further examination. Hemostasis was assured using electrocautery. Wounds were irrigated with saline solution and suctioned dry. Dermis was then reapproximated using interrupted 3-0 Polysorb sutures. Skin was closed using interrupted 5 0 nylon sutures. Sterile dressings were then applied including 2 x 2 gauze and Tegaderm. The patient tolerated the procedure well. Sponge, instrument, and needle counts reported as correct. The patient was transferred to PACU in stable condition.
--- OUTSIDE RECORDS SUMMARY | 2024-07-26 15:26 | XMS_ITS | Clinical Summary ---
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 Role Phone Villa Lr MD Primary Care Provider [phone] Allergies No known active allergies Medications clonazePAM (KlonoPIN) 1 MG tablet Take 1 tablet by mouth at bed time Active insulin aspart (NovoLOG FLEXPEN) 100 UNIT/ML injection Active melatonin 3 MG tablet Take 1 tablet by mouth at bed time Active onabotulinumto xinA (Botox) 100 units injection Active pantoprazole (PROTONIX) 40 MG EC tablet Take 1 tablet by mouth 1 (one) time each day Active raNITIdine (ZANTAC) 150 MG capsule Take 1 capsule by mouth 1 (one) time each day Active sertraline (ZOLOFT) 50 MG tablet Take 1 tablet by mouth 1 (one) time each day Active simvastatin (ZOCOR) 5 MG tablet Take 1 tablet by mouth 1 (one) time each day Active amitriptyline (ELAVIL) 75 MG tablet Take 75 mg by mouth at bed time 1 Active atorvastatin (LIPITOR) 20 MG tablet TOME JOSTIN TABLETA POR V A ORAL A DIARIO 1 Active [facility] Bisacodyl 5 MG EC tablet Take 10 mg by mouth every night 1 Active famotidine (PEPCID) 40 MG tablet TOME JOSTIN TABLETA DOS VECES AL D A 1 Active FREESTYLE LITE test strip USE SEG N LO INDICADO YASEMIN VECES AL D A 1 Active NovoFine 32G X 6 MM misc DX E11.9 TO USE WITH INSULIN PENS ONCE A DAY SQ 30 DAYS 1 Active Linzess 290 MCG capsule TAKE 1 CAPS (290 MCG) POR V A ORAL EVERY AM 30 DAYS 1 Active metFORMIN (GLUCOPHAGE) 500 MG tablet TOME JOSTIN TABLETA DOS VECES AL D A 1 Active [facility] Soluble Fiber Therapy 500 MG tablet TOME JOSTIN TABLETA DOS VECES AL D A FOR 30 DAYS 1 Active montelukast (SINGULAIR) 10 MG tablet TOME JOSTIN TABLETA POR V A ORAL CADA NOCHE 1 Active omeprazole (PriLOSEC) [address] capsule TOME JOSTIN C PSULA TODOS LOS D BEFORE MEALS DIRECTED. 1 Active Creon 82343-05044 units capsule TOME 1 C PSULA POR V A ORAL ANTES DE LAS COMIDAS 15 MINS CUATRO VECES AL D A 1 Active pioglitazone (ACTOS) 30 MG tablet TOME JOSTIN TABLETA TODOS LOS D 1 Active propranolol (INDERAL) 80 MG tablet TAKE 1 TABLET (80 MG) BY ORAL ROUTE 2 TIMES PER DAY 1 Active [facility] Senna 8.6 MG tablet 1 Active sertraline (ZOLOFT) 100 MG tablet TOME JOSTIN Y MEDIA TABLETAS TODOS LOS D POR V A ORAL SEG N LO INDICADO 1 Active Simethicone Ultra Strength 180 MG capsule TOME 1 C PSULA POR V A ORAL YASEMIN VECES AL D A AFTER MEALS 1 Active topiramate (TOPAMAX) 50 MG tablet TOME JOSTIN TABLETA POR V A ORAL DOS VECES AL D A 1 Active triamcinolone (NASACORT) 55 MCG/ACT nasal inhaler USE 1 SPRAY IN EACH NOSTRIL A DIARIO 1 Active ziprasidone (GEODON) 80 MG capsule TAKE 1 CAPSULE BY MOUTH TWICE A DAY SUZIE CON COMIDA 1 Active traMADol (ULTRAM) 50 MG tablet tramadol 50 mg tablet Active metoclopramide (REGLAN) 10 MG tablet metoclopramide 10 mg tablet Active aspirin (ST BERNADINE) 81 MG EC tablet Take 81 mg by mouth 1 (one) time each day Active atorvastatin (LIPITOR) 20 MG tablet Take 20 mg by mouth 1 (one) time each day Active montelukast (SINGULAIR) 10 MG tablet Take 10 mg by mouth every night Active liraglutide (VICTOZA) 18 MG/3ML injection Inject 18 mg under the skin 1 (one) time each day Active Active Problems Problem Noted Date Diagnosed Date Anemia 10/13/2019 Chronic kidney disease stage 2 10/13/2019 Diabetes mellitus 10/13/2019 Hyperlipidemia 10/13/2019 Hypertensive disorder 10/13/2019 Immunizations Name Administration Dates Next Due Influenza, Quadrivalent, Preservative Free 03/28 Influenza, Recombinant, Quadrivalent, Pf 020 Family History Medical History Relation Comments Diabetes Father 2 grandfather Heart disease Father 2 Cancer Mother 2 grandmother Diabetes Mother 2 Hypertension Mother 2 Relation Status Comments Father 1 Alive Father 2 Mother 1 Alive Mother 2 Social History Tobacco Use Types Packs/Day Years Used Date Smoking Tobacco: Never Smokeless Tobacco: Never Alcohol Use Standard Drinks/Week Comments No 0 (1 standard drink = 0.6 oz pur e alcohol) Comments Unknown Sex and Gender Information Value Date Recorded Sex Assigned at Not on file Legal Sex Female 4:31 PM EST Gender Identity Not on file Sexual Orientation Not on file Last Filed Vital Signs Vital Sign Reading Time Taken Comments Blood Pressure 108/68 04/19/2019 12:00 PM EDT Pulse - - Temperature - - Respiratory Rate - - Oxygen Saturation - - Inhaled Oxygen Concentration - - Weight 111 kg (245 lb) 04/19/2019 12:00 PM EDT Height 162.6 cm (5' 4 ) 04/19/2019 12:00 PM EDT Body Mass Index 42.05 04/19/2019 12:00 PM EDT Plan of Treatment Upcoming Encounters Date Type Department Care Team (Late st Contact Info) Description 09/01/2024 1:15 PM EST Office Visit [facility], [address] [place] [phone] Abdulkadir Osorio MD [address] [place] [phone] Health Maintenance Due Date Last Done Comments Pneumococcal Vaccine: Pediat rics (0 to 5 Years) and At-Risk Patients (6 to 64 Years) (1 of 2 - PCV) 1982 Hepatitis B Vaccine (1 of 3 - 19+ 3-dose series) 12/14/1995 Diabetes: Ophthalmology Exam 09/29/2019 Diabetes: Pedal Pulse Checked 09/29/2019 Diabetes: Sensory Foot Exam 09/29/2019 Diabetes: Visual Foot Exam 09/29/2019 Influenza Vaccine (#1) 2024 04/19/2020, 2018 Diabetes: Hemoglobin A1C 10/03/2024 07/05/2024 Procedures Procedure Name Priority Date/Time Associated Diagnosis Comments PTH, INTACT Routine 07/05/2024 11:44 AM EST FERRITIN Routine 07/05/2024 11:44 AM EST MAGNESIUM Routine 07/05/2024 11:44 AM EST VITAMIN D 25 HYDROXY Routine 07/05/2024 11:44 AM EST HEMOGLOBIN A1C Routine 07/05/2024 11:44 AM EST URINE ALBUMIN / CREATININE RATIO Routine 07/05/2024 11:44 AM EST IRON PANEL (FE, TIBC, TSAT) Routine 07/05/2024 11:44 AM EST URINALYSIS WITH MICROSCOPIC Routine 07/05/2024 11:44 AM EST CBC AND DIFFERENTIAL Routine 07/05/2024 11:44 AM EST RP10+2AC (HC) Routine 07/05/2024 11:44 AM EST MICROSCOPIC EXAMINATION - DO NOT USE Routine 07/05/2024 11:44 AM EST from Last 3 Months Results * (ABNORMAL) RP10+2AC (07/05/2024 11:44 AM EST) Glucose 105(H) 70 - 99 mg/dL [facility] Uric Acid 3.8 2.6 - 6.2 mg/dL [facility] Comment:Therapeutic target f or gout patients: <6.0 BUN 11 6 - 24 mg/dL [facility] Creatinine 0.58 0.57 - 1.00 mg/dL [facility] eGFR CKD-EPI CR 2020 112 >59 mL/min/1.7 3 [facility] BUN/Creatinine Ratio 19 9 - 23 [facility] Sodium 139 134 - 144 mmol/L [facility] Potassium 4.3 3.5 - 5.2 mmol/L [facility] Chloride 103 96 - 106 mmol/L [facility] Bicarbonate (CO2) 22 20 - 29 mmol/L [facility] Anion Gap 14.0 10.0 - 18.0 mmol/L [facility] Calcium 9.9 8.7 - 10.2 mg/dL [facility] Total Protein 6.6 6.0 - 8.5 g/dL [facility] Albumin 4.2 3.9 - 4.9 g/dL [facility] Globulin 2.4 1.5 - 4.5 g/dL [facility] Phosphorus 3.4 3.0 - 4.3 mg/dL [facility] 07/05/2024 11:4 4 AM EST 07/05/2024 us Abdulkadir Osorio MD LAB [id number] OLICITED RESULTS Final Result [facility] [address] [place] [address] * Microscopic Examination (07/05/2024 11:44 AM EST) WBC, Urine None seen 0 - 5 /hpf [facility] RBC, Urine None seen 0 - 2 /hpf [facility] Squamous Epithelial, Urine 0-10 0 - 10 /hpf [facility] Casts None seen None seen /lpf [facility] Bacteria, Urine None seen None seen/Few [facility] 07/05/2024 11:4 4 AM EST 07/05/2024 Abdulkadir Osorio MD LAB MICROBIOLOGY - GENERAL ORD ERABLES Final Result [facility] [address] [place] [address] * (ABNORMAL) Iron Panel (Fe, TIBC, TSAT) (07/05/2024 11:44 AM EST) Pathologist [facility] TIBC 385 250 - 450 ug/dL [facility] UIBC 348 131 - 425 ug/dL [facility] Iron 37 27 - 159 ug/dL [facility] Iron Saturation (TSat) 10(L) 15 - 55 % [facility] 07/05/2024 11:4 4 AM EST 07/05/2024 us Abdulkadir Osorio MD LAB BLOOD ORDERABLES Final Res ult [facility] [address] [place] [address] * Urine Albumin / Creatinine Ratio (07/05/2024 11:44 AM EST) Creatinine, Ur 55.2 Not Estab. mg/dL [facility] Urine Microalbumin <3.0 Not Estab. ug/mL [facility] Microalbumin/Crea tinine Ratio <5 0 - 29 mg/g creat [facility] Comment: ? Normal: ?0 - ??29 ? Moderately increased: 30 - 300 ? Severely increased: ? >300 07/05/2024 11:4 4 AM EST 07/05/2024 us Abdulkadir Osorio MD LAB URINE ORDERABLES Final Res ult [facility] [address] [place] [address] * Vitamin D 25 Hydroxy (07/05/2024 11:44 AM EST) Vitamin D, 25-OH, Total 30.0 30.0 - 100.0 ng/mL [facility] Comment: Vitamin D deficiency has been defined by the [place] [employer] and an Endocrine Society practice guideline as a level of serum 25-OH vitamin D less than 20 ng/mL (1,2). The Endocrine Society went on to further define vitamin D insufficiency as a level between 21 and 29 ng/mL (2). 1. IOM ([place] [employer]). 2010. Dietary reference ?? intakes for calcium and D. [place]: The ?? National [employer]. 2. Levy MF, Roslyn NC, Ousmane OCAMPO, et al. ?? Evaluation, treatment, and prevention of vitamin D ?? deficiency: an Endocrine Society clinical practice ?? guideline. JCEM. 2010; 96(7):1911-30. 07/05/2024 11:4 4 AM EST 07/05/2024 us Abdulkadir Osorio MD LAB BLOOD ORDERABLES Final Res ult [facility] [address] [place] [address] * (ABNORMAL) Urinalysis with microscopic (07/05/2024 11:44 AM EST) Specific [place], Urine 1.011 1.005 - 1.030 [facility] [phone] pH Urine 8.0(H) 5.0 - 7.5 [facility] Color, Urine Yellow Yellow [facility] Appearance Urine Clear Clear [facility] WBC Esterase Urine Negative Negative [facility] Protein, Ur Negative Negative/Tra ce [facility] Glucose, Ur Negative Negative [facility] Ketones, Urine Negative Negative [facility] [phone] Blood Urine Negative Negative [facility] Bilirubin Urine Negative Negative [facility] Urobilinogen Urine 0.2 0.2 - 1.0 mg/dL [facility] Nitrite, Urine Negative Negative [facility] [phone] Microscopic Examination Comment [facility] Comment:Microscopic follows if indicated. Other Microsc. Observations See below: [facility] Comment:Microscopic was casper cated and was performed. 07/05/2024 11:4 4 AM EST 07/05/2024 us Abdulkadir Osorio MD LAB URINE ORDERABLES Final Res ult [facility] [address] [place] [address] * (ABNORMAL) CBC and Differential (07/05/2024 11:44 AM EST) WBC 7.6 3.4 - 10.8 x10E3/uL [facility] RBC 4.00 3.77 - 5.28 x10E6/uL [facility] Hemoglobin 11.7 11.1 - 15.9 g/dL [facility] Hematocrit 38.1 34.0 - 46.6 % [facility] MCV 95 79 - 97 fL [facility] MCH 29.3 26.6 - 33.0 pg [facility] MCHC 30.7(L) 31.5 - 35.7 g/dL [facility] RDW 13.1 11.7 - 15.4 % [facility] Platelets 284 150 - 450 x10E3/uL [facility] Neutrophils Relative 61 Not Estab. % [facility] Lymphocytes Relative 30 Not Estab. % [facility] Monocytes 8 Not Estab. % [facility] Eosinophils Relative 1 Not Estab. % [facility] Basophils Relative 0 Not Estab. % [facility] Neutrophils Absolute 4.6 1.4 - 7.0 x10E3/uL [facility] Lymphocytes Absolute 2.3 0.7 - 3.1 x10E3/uL [facility] Monocytes Absolute 0.6 0.1 - 0.9 x10E3/uL [facility] Eosinophils Absolute 0.1 0.0 - 0.4 x10E3/uL [facility] Basophils Absolute 0.0 0.0 - 0.2 x10E3/uL [facility] Immature Granulocytes 0 Not Estab. % [facility] Immature Grans (Absolute) 0.0 0.0 - 0.1 x10E3/uL [facility] 07/05/2024 11:4 4 AM EST 07/05/2024 us Abdulkadir Osorio MD LAB BLOOD ORDERABLES Final Res ult Performing Organization Address City/[facility]/ZIP Co de Phone Number [facility] [address] [place] [address] * PTH, Intact (07/05/2024 11:44 AM EST) PTH 20 15 - 65 pg/mL [facility] 07/05/2024 11:4 4 AM EST 07/05/2024 us Abdulkadir Osorio MD LAB BLOOD ORDERABLES Final Res ult Performing Organization Address City/[facility]/ZIP Co de Phone Number [facility] [address] [place] [address] * Magnesium (07/05/2024 11:44 AM EST) Magnesium 1.9 1.6 - 2.3 mg/dL [facility] 07/05/2024 11:4 4 AM EST 07/05/2024 us Abdulkadir Osorio MD LAB BLOOD ORDERABLES Final Res ult Performing Organization Address City/[facility] de Phone Number [facility] [address] [place] [address] * (ABNORMAL) Hemoglobin A1c (07/05/2024 11:44 AM EST) Hemoglobin A1C 7.4(H) 4.8 - 5.6 % [facility] Comment: ? Prediabetes: 5.7 - 6.4 ? Diabetes: >6.4 ? Glycemic control for adults with diabetes: <7.0 07/05/2024 11:4 4 AM EST 07/05/2024 Abdulkadir Osorio MD LAB BLOOD ORDERABLES Final Res ult Performing Organization Address [facility] Co de Phone Number [facility] [address] [place] [address] * (ABNORMAL) Ferritin (07/05/2024 11:44 AM EST) Ferritin 11(L) 15 - 150 ng/mL [facility] 07/05/2024 11:4 4 AM EST 07/05/2024 Abdulkadir Osorio MD LAB BLOOD ORDERABLES Final Res ult Performing Organization Address [facility] Co de Phone Number [facility] [address] [place] [address] from Last 3 Months Insurance [address] [place] [id number] [place] [address] [employer] Care Teams Industrial [employer] Relationship Specialty Start Date End Date Villa Lr MD [address] [place] [id number] PCP - General 05/04/19
--- OUTSIDE RECORDS SUMMARY | 2024-07-26 15:26 | XMS_ITS | Data Portability ---
Author Organization [facility] [place], [place] Address [address] [facility] [place] [address] Care Team Providers Care Rheumatologist Name Role Phone LATIA RASHID Referring Provider LATIA RASHID Primary Care Provider [phone] Assessment Encounter Date Assessment Date Assessment LastModified [...] today, I reviewed the propranolol prescription in [place] and noted that she had a 90-day [...] with April 2023 confirmation of medications from [facility]) -From [facility]: propranolol 60 mg twice daily topiramate 100 mg twice daily, Aimovig 140 mg/mL monthly autoinjector and Ubrelvy 100 mg as needed for breakthrough migraine from [facility] (she was also concurrently on rizatriptan [...] with April 2023 confirmation of medications from [facility]) -From [facility]: propranolol 60 mg twice daily topiramate 100 mg twice daily, Aimovig 140 mg/mL monthly autoinjector and Ubrelvy 100 mg as needed for breakthrough migraine from [facility] (she was also concurrently on rizatriptan [...] realizada con la versi??n gratuita del traductor [employer] (with edits by me) -Continue propranolol 60mg [...] with April 2023 confirmation of medications from [facility]) -From [facility]: propranolol 60 mg twice daily topiramate 100 mg twice daily, Aimovig 140 mg/mL monthly autoinjector and Ubrelvy 100 mg as needed for breakthrough migraine from [facility] (she was also concurrently on rizatriptan [...] dose in her refrigerator and to picker and sorter load and unload the new prescription when it gets. Therefore, [...] with April 2023 confirmation of medications from [facility]) -From [facility]: propranolol 60 mg twice daily topiramate 100 mg twice daily, Aimovig 140 mg/mL monthly autoinjector and Ubrelvy 100 mg as needed for breakthrough migraine from [facility] (she was also concurrently on rizatriptan [...] dose in her refrigerator and to picker and sorter load and unload the new prescription when it gets. Therefore, [...] with April 2023 confirmation of medications from [facility]) -From [facility]: propranolol 60 mg twice daily topiramate 100 mg twice daily, Aimovig 140 mg/mL monthly autoinjector and Ubrelvy 100 mg as needed for breakthrough migraine from [facility] (she was also concurrently on rizatriptan [...] topiramat e 100 mg tablet 2022 023 [facility] [address] [place], [address], 05/28/2023 09:56:01 propranol ol 60 mg tablet 2022 023 [facility], [address] [place], [address], 05/28/2023 09:56:01 Aimovig Autoinjec tor 140 mg/mL subcutane ous auto-inje ctor 2022 023 [facility] [address] [place] [address], [address], 03/23/2024 12:59:57 Ubrelvy 100 mg tablet 2022 023 [facility] [address] [place], [address], 05/28/2023 09:56:01 topiramat e 100 mg tablet 2023 024 [facility] [address] [place], [address], 10/07/2023 10:22:21 propranol ol 60 mg tablet 2023 024 [facility], [address] [place], [address], 10/07/2023 10:22:21 Aimovig Autoinjec tor 140 mg/mL subcutane ous auto-inje ctor 2023 024 [facility] [address] [place] [address], [address], 03/23/2024 12:59:57 Ubrelvy 100 mg tablet 2023 024 [facility], [address] [place], [address], 10/07/2023 10:22:21 propranol ol 60 mg tablet 2023 024 [facility] [address] [place], [address], 11/11/2023 11:21:02 topiramat e 50 mg tablet 2023 024 [facility], [address] [place], [address], 11/11/2023 11:21:03 Aimovig Autoinjec tor 140 mg/mL subcutane ous auto-inje ctor 2023 024 [facility] [address] [place], [address], 03/23/2024 12:59:57 Ubrelvy 100 mg tablet 2023 024 [facility] [address] [place], [address], 11/11/2023 11:21:02 Ajovy 225 mg/1.5 mL subcutane ous auto-inje ctor 2023 024 [facility] #0373, [address] [place], [address], 12/10/2023 12:17:38 Ajovy 225 mg/1.5 mL subcutane ous auto-inje ctor 2023 024 [facility], [address] [place], [address], 03/23/2024 12:47:06 Ubrelvy 100 mg tablet 2023 024 [facility], [address] [facility], [place], [address], 03/23/2024 12:47:07 Patient TargetsNo targets recorded. 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 She will picker and sorter load and unload a sample today. 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 She will picker and sorter load and unload a sample today. 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 She was running out of [email or web address] for breakthrough migraine reported October 01, 2022. [...] not discuss the addition of rizatriptan through [employer] which we have discussed previously as she [...] the potential side effects. She will picker and sorter load and unload a sample today. 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 She will picker and sorter load and unload a sample today. 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 She was running out of [email or web address] for breakthrough migraine reported October 01, 2022. [...] not discuss the addition of rizatriptan through [employer] which we have discussed previously as she [...] the potential side effects. She will picker and sorter load and unload a sample today. 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 Procedures Surgical History Date Name Laterality Status Provider Name and Address Organization Details Recorded Time 4 botulinum injection completed Imer Lieberman MD [address] [place] [address] [place], [address], [facility] 03/23/2024 12:37:46 4 botulinum injection completed Imer Lieberman MD [address] [place] [address], YAKOV [place]ter[place], [address], [facility] 12/10/2023 11:56:10 4 botulinum injection completed Imer Lieberman MD [address] [place] [address], YAKOV [place]ter[place], [address], [facility] 11/11/2023 11:10:22 4 botulinum injection completed ENRIKE NORTON PA-C [address] [place] [address] [place], [address], [facility] 10/07/2023 10:03:49 3 botulinum injection completed ENRIKE NORTON PA-C [address] [place] [address] [place], [address], [facility] 05/28/2023 09:39:33 3 botulinum injection completed ENRIKE NORTON PA-C [address] [place] [address] [place], [address], [facility] 04/24/2023 10:42:13 3 botulinum injection completed ENRIKE NORTON PA-C [address] [place] [address] [place], [address], [facility] 03/18/2023 10:47:21 3 botulinum injection completed ENRIKE NORTON PA-C [address] [place] [address] [place], [address], [facility] 01/23/2023 09:59:39 3 botulinum injection completed ENRIKE NORTON PA-C [address] [place] [address] [place], [address], [facility] 12/19/2022 11:33:40 3 botulinum injection completed ENRIKE NORTON PA-C [address] [facility] B, YAKOV [place], [address], [facility] 11/28/2022 13:56:45 3 botulinum injection completed ENRIKE NORTON PA-C [address] [facility] B, YAKOV [place], [address], [facility] 10/29/2022 10:47:52 3 botulinum injection completed ENRIKE NORTON PA-C [address] [facility] B, YAKOV [place], [address], [facility] 10/01/2022 13:50:41 3 botulinum injection completed Imer Lieberman MD [address] [place] [address] B, YAKOV Monter[place], [address], [facility] 08/14/2022 17:00:39 3 botulinum injection completed ENRIKE NORTON PA-C [address] [facility] B, YAKOV [place], [address], [facility] 07/09/2022 14:05:58 2 botulinum injection completed Imer Lieberman MD [address] [place] [address] B, YAKOV Monter[place], [address], [facility] 05/16/2022 13:33:52 2 botulinum injection completed ENRIKE NORTON PA-C [address] [place] [address] B, YAKOV Montero, [address], [facility] 03/14/2022 14:10:23 2 botulinum injection completed Imer Lieberman MD [address] [place] [address] B, YAKOV Montero, [address], [facility] 02/13/2022 09:15:23 2 botulinum injection completed ENRIKE NORTON PA-C [address] [place] [address] B, YAKOV Montero, [address], [facility] 12/06/2021 13:50:32 2 botulinum injection completed Imer Lieberman MD [address] [place] [address], YAKOV Montero, [address], [facility] 11/07/2021 13:30:06 2 botulinum injection completed ENRIKE NORTON PA-C [address] [place] [address], WinstonYAKOV richard, [address], [facility] 09/05/2021 14:12:15 2 botulinum injection completed Imer Lieberman MD [address] [place] [address], YAKOV Montero, [address], [facility] 07/25/2021 15:27:34 2 botulinum injection completed ENRIKE NORTON PA-C [address] [place] [address], YAKOV Mon[place]o, [address], [facility] 07/12/2021 08:55:03 1 botulinum injection completed ENRIKE NORTON PA-C [address] [place] [address], YAKOV Montero, [address], [facility] 05/29/2021 22:54:52 1 botulinum injection completed Imer Lieberman MD [address] [place] [address], YAKOV Montero, [address], [facility] 04/25/2021 14:30:46 1 botulinum injection completed Imer Lieberman MD [address] [place] [address] YAKOV Montero, [address], [facility] 01/24/2021 19:05:02 1 botulinum injection completed Imer Lieberman MD [address] [place] [address] YAKOV Montero, [address], [facility] 10/25/2020 18:09:08 Imaging Results None recorded. 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 Dystonia 55607248 G24.3 Facial spasm 33323916 G5 1.39 Migraine without aura 56 960900 G43.009 [id number] Imer Lieberman MD [facility] [address] [place] [address] Gordo MONTERO YAKOV [address] 4 01/24/2021 14:50:22 01/25/2021 08:16:40 Idiopathic non-familial dystonia 245389673 G24.1 Dystonia 30236470 G24.3 Facial spasm 99603550 G5 1.39 Migraine without aura 56 872220 G43.009 [id number] Imer Lieberman MD [facility] [address] [place] [address] JOSE RETANAYAKOV RICHARD [address] 4 02/28/2021 11:51:24 02/28/2021 12:29:37 Idiopathic non-familial dystonia 377438311 G24.1 Dystonia 55022519 G24.3 Facial spasm 19486661 G5 1.39 Migraine without aura 56 121598 G43.009 [id number] Imer Lieberman MD [facility] [address] [place] [address] JOSE MONTEROYAKOV [address] 4 04/25/2021 12:22:14 04/26/2021 07:40:15 Idiopathic non-familial dystonia 387111752 G24.1 Dystonia 22192010 G24.3 Facial spasm 13353670 G5 1.39 Migraine without aura 56 137760 G43.009 [id number] Imer Lieberman MD [facility] [address] [place] [address] JOSE RETANAYAKOV RICHARD [address] 4 05/29/2021 10:02:07 05/30/2021 15:05:44 Idiopathic non-familial dystonia 941599300 G24.1 Dystonia 31338865 G24.3 Facial spasm 33286945 G5 1.39 Migraine without aura 56 333513 G43.009 Migraine with aura 14282 06 G43.109 [id number] Imer Lieberman MD [facility] [address] [place] [address] JOSE RETANAYAKOV RICHARD [address] 4 07/12/2021 08:51:06 08/03/2021 15:14:49 Idiopathic non-familial dystonia 034728227 G24.1 Dystonia 90966658 G24.3 Facial spasm 93129774 G5 1.39 Migraine without aura 56 716862 G43.009 [id number] Imer Lieberman MD [facility] [address] [place] [address] Gordo YAKOV MONTERO [address] 4 07/25/2021 13:52:53 07/25/2021 16:35:44 Idiopathic non-familial dystonia 418070758 G24.1 Dystonia 62007115 G24.3 Facial spasm 22358774 G5 1.39 Migraine without aura 56 257006 G43.009 [id number] Imer Lieberman MD [facility] [address] [place] [address] Gordo YAKOV MONTERO [address] 4 09/05/2021 14:01:17 09/10/2021 10:57:43 Idiopathic non-familial dystonia 895931879 G24.1 Dystonia 07644687 G24.3 Facial spasm 75642221 G5 1.39 Migraine without aura 56 516270 G43.009 [id number] Imer Lieberman MD [facility] [address] [place] [address] [place] [address] 4 11/07/2021 12:25:50 11/07/2021 18:58:37 Idiopathic non-familial dystonia 906589325 G24.1 Dystonia 24928451 G24.3 Facial spasm 78453549 G5 1.39 Migraine without aura 56 022744 G43.009 [id number] Imer Lieberman MD [facility] [address] [place] [address] Gordo YAKOV MONTERO [address] 4 12/06/2021 13:06:48 12/10/2021 15:27:19 Idiopathic non-familial dystonia 904931694 G24.1 Dystonia 01378494 G24.3 Facial spasm 25683331 G5 1.39 Migraine without aura 56 107580 G43.009 [id number] Imer Lieberman MD [facility] [address] [place] [address] [place] [address] 4 02/13/2022 07:56:35 02/13/2022 09:24:50 Idiopathic non-familial dystonia 172612231 G24.1 Dystonia 67030669 G24.3 Facial spasm 01573073 G5 1.39 Migraine without aura 56 293024 G43.009 [id number] Imer Lieberman MD [facility] [address] [place] [address] [place] [address] 4 03/14/2022 13:58:56 03/19/2022 09:35:39 Idiopathic non-familial dystonia 752566616 G24.1 Dystonia 28362750 G24.3 Facial spasm 20311355 G5 1.39 Migraine without aura 56 279949 G43.009 [id number] Imer Lieberman MD [facility] [address] [place] [address] Gordo YAKOV MONTERO [address] 4 05/16/2022 11:40:07 05/16/2022 15:55:55 Idiopathic non-familial dystonia 915502502 G24.1 Dystonia 34790749 G24.3 Facial spasm 14491161 G5 1.39 Migraine without aura 56 418763 G43.009 [id number] Imer Lieberman MD [facility] [address] [place] [address] Gordo YAKOV MONTERO [address] 4 07/09/2022 13:59:24 07/25/2022 12:39:21 Idiopathic non-familial dystonia 993541995 G24.1 Dystonia 15264584 G24.3 Facial spasm 61062384 G5 1.39 Migraine without aura 56 663754 G43.009 Migraine with aura 76789 06 G43.109 [id number] Imer Lieberman MD [facility] [address] [place] [address] [place] [address] 4 08/14/2022 15:04:31 08/14/2022 17:43:36 Idiopathic non-familial dystonia 091781442 G24.1 Dystonia 69136602 G24.3 Facial spasm 01307961 G5 1.39 Migraine without aura 56 614211 G43.009 [id number] ENRIKE NORTON PA-C [facility] [address] [place] [address] Gordo YAKOV MONTERO [id number] 4 10/01/2022 13:45:47 10/03/2022 11:40:32 Idiopathic non-familial dystonia 455206549 G24.1 Dystonia 94175175 G24.3 Facial spasm 82235021 G5 1.39 Migraine without aura 56 011207 G43.009 Migraine with aura 65339 06 G43.109 [id number] Imer Lieberman MD [facility] [address] [place] [address] Gordo YAKOV MONTERO [address] 4 10/29/2022 10:18:41 11/04/2022 15:06:43 Idiopathic non-familial dystonia 650080243 G24.1 Dystonia 77587384 G24.3 Facial spasm 38544736 G5 1.39 Migraine without aura 56 517526 G43.009 Migraine with aura 36340 06 G43.109 [id number] ENRIKE NORTON PA-C [facility] [address] [place] [address] Gordo YAKOV MONTERO [id number] 4 11/28/2022 13:27:59 12/02/2022 15:28:22 Idiopathic non-familial dystonia 118153810 G24.1 Dystonia 74132328 G24.3 Facial spasm 56751374 G5 1.39 Migraine without aura 56 612771 G43.009 Migraine with aura 01607 06 G43.109 [id number] Imer Lieberman MD [facility] [address] [place] [address] JOSE Caro YAKOV MONTERO [address] 4 12/19/2022 11:07:15 12/23/2022 16:34:25 Idiopathic non-familial dystonia 135316286 G24.1 Dystonia 01030901 G24.3 Facial spasm 71557485 G5 1.39 Migraine without aura 56 583896 G43.009 Migraine with aura 26825 06 G43.109 [id number] Imer Lieberman MD [facility] [address] [place] [address] [place] [address] 4 01/23/2023 09:21:21 02/10/2023 16:21:14 Idiopathic non-familial dystonia 402066774 G24.1 Dystonia 40843564 G24.3 Facial spasm 50965349 G5 1.39 Migraine without aura 56 946253 G43.009 Migraine with aura 22537 06 G43.109 [id number] Imer Lieberman MD [facility] [address] [place] [address] [place] [address] 4 03/18/2023 10:30:58 03/19/2023 17:32:28 Idiopathic non-familial dystonia 033320476 G24.1 Dystonia 91174695 G24.3 Facial spasm 89281215 G5 1.39 Migraine without aura 56 514325 G43.009 Migraine with aura 28709 06 G43.109 [id number] ENRIKE NORTON PA-C [facility] [address] [place] [address] Gordo YAKOV MONTERO [id number] 4 04/24/2023 10:15:35 04/30/2023 10:38:58 Idiopathic non-familial dystonia 111802071 G24.1 Dystonia 17991753 G24.3 Facial spasm 98001287 G5 1.39 Migraine without aura 56 618497 G43.009 Migraine with aura 02323 06 G43.109 [id number] Imer Lieberman MD [facility] [address] [place] [address] Grodo YAKOV MONTERO 906[address]-487 4 05/28/2023 09:14:15 05/29/2023 16:35:04 Idiopathic non-familial dystonia 197997596 G24.1 Dystonia 59245544 G24.3 Facial spasm 11190139 G5 1.39 Migraine without aura 56 416227 G43.009 Migraine with aura 37621 06 G43.109 [id number] Imer Lieberman MD [facility] [address] [place] [address] Gordo YAKOV MONTERO [address]-170 4 10/07/2023 09:31:55 10/13/2023 13:14:20 Idiopathic non-familial dystonia 828700032 G24.1 Dystonia 63313139 G24.3 Facial spasm 35881968 G5 1.39 Migraine without aura 56 272722 G43.009 Migraine with aura 10066 06 G43.109 [id number] Imer Lieberman MD [facility] [address] [place] [address] Gordo YAKOV MONTERO 72734-420 4 11/11/2023 10:36:51 11/11/2023 11:43:45 Idiopathic non-familial dystonia 085361674 G24.1 Dystonia 72646968 G24.3 Facial spasm 63747781 G5 1.39 Migraine without aura 56 125280 G43.009 Migraine with aura 17889 06 G43.109 [id number] Imer Lieberman MD [facility] [address] [place] [address] [place] [address] 4 12/10/2023 11:11:30 12/10/2023 12:19:37 Idiopathic non-familial dystonia 616265339 G24.1 Dystonia 26862293 G24.3 Facial spasm 27233319 G5 1.39 Migraine without aura 56 563157 G43.009 Migraine with aura 00670 06 G43.109 [id number] Imer Lieberman MD [facility] [address] [place] [address] [place] [address] 4 03/23/2024 11:39:14 03/23/2024 17:16:47 Idiopathic non-familial dystonia 353763703 G24.1 Dystonia 64902034 G24.3 Facial spasm 84578040 G5 1.39 Migraine without aura 56 667137 G43.009 Migraine with aura 67158 06 G43.109 Health Concerns Section Related Observation LastModified by Organization Detai ls LastModified Time None Recorded Concern Status LastModified by Organization Details LastModified Time None Recorded Advance Directives Directive None Recorded Payers Encounter Date Sequence Insurance Name Policy Number Policy Leone Covered Member ID Leone Member ID Guarantor Name 05/28/2023 [address] [facility] [employer] Ute Ashlyn [id number] Ute Ashlyn 10/07/2023 [address] [facility] [employer] (O) [employer] Ute Ashlyn [id number] Ute Ashlyn 11/11/2023 [address] [facility] [employer] (O) [employer] Ute Ashlyn [id number] Ute Ashlyn 12/10/2023 [address] [facility] [employer] (O) [employer] Ute Ashlyn [id number] Ute Ashlyn 03/23/2024 [address] [facility] [employer] (O) [employer] Ute Ashlyn [id number] Ute Ahslyn Notes Date Note Type Note Provider Name [...] She is working with Andreina Greer APRN, [facility] and will be [...] but she has also been to her cvor nurse/ophthalm ologist and had her glasses changed but [...] came in later that day to picker and sorter load and unload the Aimovig 70 mg/mL sample and ? [...] with psychiatry on this. Imer Lieberman MD [address] [place] [address], [phone], [facility] 05/28/2023 13:26:47 10/07/2023 text/html Follow-up breakthrough headache [...] She is working with Andreina Greer APRN, [facility] and will be [...] but she has also been to her cvor nurse/ophthalm ologist and had her glasses changed but [...] came in later that day to picker and sorter load and unload the Aimovig 70 mg/mL sample and ? [...] with psychiatry on this. Imer Lieberman MD [address] [place] [address] [place], [address], [facility] 10/13/2023 11:40:53 11/11/2023 text/html Follow-up of his [...] She is working with Andreina Greer APRN, [facility] and will be [...] but she has also been to her cvor nurse/ophthalm ologist and had her glasses changed but [...] came in later that day to picker and sorter load and unload the Aimovig 70 mg/mL sample and ? [...] with psychiatry on this. Imer Lieberman MD [address] [place] [address] [place], [address], [facility] 11/11/2023 11:32:39 12/10/2023 text/html Follow-up of his [...] She is working with Andreina Greer APRN, [facility] and will be [...] but she has also been to her cvor nurse/ophthalm ologist and had her glasses changed but [...] came in later that day to picker and sorter load and unload the Aimovig 70 mg/mL sample and ? [...] with psychiatry on this. Imer Lieberman MD [address] [place] [address] [place], [address], [facility] 12/10/2023 12:17:54 03/23/2024 text/html Follow-up of his [...] She is working with Andreina [place]er APRN, [facility] and will be [...] but she has also been to her cvor nurse/ophthalm ologist and had her glasses changed but [...] came in later that day to picker and sorter load and unload the Aimovig 70 mg/mL sample and ? [...] with psychiatry on this. Imer Lieberman MD [address] [place] [address] [place], [phone], [facility] 03/23/2024 13:04:47 OBGyn Episode No OBEpisode recorded.
--- OUTSIDE RECORDS SUMMARY | 2024-07-26 15:26 | XMS_ITS | Encounter Summary ---
Author Organization [facility], Address [address] [place] [address] Phone Care Team Providers Care Juvenile Counselor Name Role Phone Villa Lr MD Primary Care Provider +1- [phone] Encounter Details Date Type Department Care Team (Late st Contact Info) Description 06/10/2022 Documentation Only [facility], [address] [place] [address] Abdulkadir Osorio MD [address] [place] [address] [place] [address] Social History Tobacco Use Types Packs/Day Years Used Date Smoking Tobacco: Never Smokeless Tobacco: Never Alcohol Use Standard Drinks/Week Comments No 0 (1 standard drink = 0.6 oz pur e alcohol) Comments Unknown Sex and Gender Information Value Date Recorded Sex Assigned at Not on file Legal Sex Female 4:31 PM EST Gender Identity Not on file Sexual Orientation Not on file documented as of this encounter Plan of Treatment Upcoming Encounters Date Type Department Care Team (Late st Contact Info) Description 09/01/2024 1:15 PM EST Office Visit [facility], [address] [place] [address] Abdulkadir Osorio MD [address] [place] [address] documented as of this encounter Visit Diagnoses Not on filedocumented in this encounter Care Teams Juvenile Counselor Relationship Specialty Start Date End Date Villa Lr MD [address] [place] [address] PCP - General 05/04/19 documented as of this encounter
--- OUTSIDE RECORDS SUMMARY | 2024-07-26 15:26 | XMS_ITS | Encounter Summary ---
Author Organization [facility], Address [address] [place] [address] Phone Care Team Providers Care Recreational Aide Name Role Phone Villa Lr MD Primary Care Provider +1- [phone] Encounter Details Date Type Department Care Team (Late st Contact Info) Description 06/16/2023 Documentation Only [facility], [address] [place] [address] Abdulkadir Osorio MD [address] [place] [address] [place] [address] Social History Tobacco Use Types [...] Visit [facility] [address] [place] [address] Abdulkadir Osorio MD [address] [place] [address] documented as of this encounter Visit Diagnoses Not on filedocumented in this encounter Care Teams Recreational Aide Relationship Specialty Start Date End Date Villa Lr MD [address] [place] [address] PCP - General 05/04/19 documented as of this encounter
== END 2024-07-26 15:03 | disposition home or self-care (01) ==
PROVIDERS: PCP Internal Medicine; Visit Provider Surgery
PROC: (CPT 19120; principal; 2024-07-26 13:10)
DX: N60.82 Other benign mammary dysplasias of left breast (principal); N64.4 Mastodynia; N64.59 Other signs and symptoms in breast; N32.81 Overactive bladder; F32.A Depression, unspecified; F41.9 Anxiety disorder, unspecified; J45.909 Unspecified asthma, uncomplicated; G47.33 Obstructive sleep apnea (adult) (pediatric); E66.01 Morbid (severe) obesity due to excess calories; Z68.41 Body mass index [BMI] 40.0-44.9, adult; I10 Essential (primary) hypertension; E78.00 Pure hypercholesterolemia, unspecified; R94.6 Abnormal results of thyroid function studies; R79.89 Other specified abnormal findings of blood chemistry; E11.9 Type 2 diabetes mellitus without complications; Z79.84 Long term (current) use of oral hypoglycemic drugs; Z79.899 Other long term (current) drug therapy; Z99.89 Dependence on other enabling machines and devices; Z88.8 Allergy status to other drugs, medicaments and biological substances; Z98.890 Other specified postprocedural states
CPT/HCPCS: 19120; 82947; 88304; J0690; J1100; J1885; J2003; J2250; J2405; J2704; J3010

== ENCOUNTER → 2024-07-26 10:40 | Outpatient (BNV) | payer OTHER, SELFPAY | PROVIDERS: PCP Internal Medicine; Visit Provider Surgery | DX: L72.0 Epidermal cyst (principal) | CPT/HCPCS: 19120 ==

== ENCOUNTER 2024-07-28 12:45 | Outpatient (AMB) | payer OTHER, SELFPAY ==
--- NOTE | 2024-07-28 12:52 | MHC.OFFVIS ---
Vital Signs 07/28/24 13:03 Height 5 ft 4 in Weight 226 lb BMI 38.8 BP 119/59 L Blood Pressure Location Lt brachial Position Sitting Pulse 64 Pulse Source Pulse Oximeter Intake Visit Reasons: RIGHT SYNVISC KNEE INJECTION Intake Note: Pain today 02/06 Compressed Yeast Supervisor Required: No Track Vehicle Repairer: Track Vehicle Repairer Present Accompanied by: Spouse Allergies meclizine Adverse Reaction (Verified 07/28/24 13:04) tachycardia metoclopramide Adverse Reaction (Verified 07/28/24 13:04) tachycardia PFSH Medical History Overactive bladder Diarrhea Morbid obesity with BMI of 40.0-44.9, adult Biliary dyskinesia Elevated TSH Obesity (BMI 30-39.9) Depression Anxiety Insomnia Obstructive sleep apnea Vitamin D deficiency 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 myelopathy or radiculopathy Elevated LFTs Allergic rhinitis Asthma Migraine Pure hypercholesterolemia Benign essential hypertension Diabetes mellitus IBS (irritable bowel syndrome) Gastroparesis Surgical History Status post epidural steroid injection History of cardiac cath Hx of tubal ligation Hx of colonoscopy (~03/2018) Hx of endoscopy History of surgery of head Hx of hysterectomy (~08/2011) Family History Father Diabetes Hypertension Heart problem Mother Arthritis Diabetes Hypertension Maternal Grandmother Breast cancer, Onset Age: 72 Family/Other Diabetes Hypertension Heart problem Social History Household Members: Spouse Housing: House Are you a primary long term care phlebotomist to a significant other at home: No Do you presently have visiting nurse or other home services: No Alcohol intake: current Alcohol intake frequency: former alcohol drinker Comment: NOT INDICATED Patient Tobacco Use Status: Never used Tobacco e-Cigarette/Vaping Use: Never Used Second Hand Smoke Exposure: No Advance Directives Date on File: 03/20/16 service: No Current occupational status: disabled Cognitive needs: No Hearing needs: No Vision needs: Yes Female Reproductive History Menstrual Age of Menarche: 13 Physical Exam Vital Signs: Last Vital Signs Pulse 64 07/28/24 13:03 BP 119/59 L 07/28/24 13:03 BMI result Body Mass Index 38.8 Office Procedures AMB Joint Injection/Aspiration Joint Injection/Aspiration Secondary Site: right knee Coding 36168 - Large joint Procedure code (CPT) selection complete Office Meds Synvisc-One 48 mg/6 mL intra-articular syringe Performing Provider: Nathan Escalante MD Performing Location: [facility] Administered by: Nathan Escalante MD on 07/28/24 13:17 Dose Route Admin Location Dispensed Lot Number Expiration Date [employer] Sales Representative 48 mg intra-articular 6 mL [id number] 12/27/26 Assessment & Plan Assessment & Plan (1) Right knee pain: Code(s): M25.561 - Pain in right knee Category: Medical Plan Office procedure: Right knee Synvisc injection. Patient was positioned sitting on the operating table and anterior lateral surface of the right knee was prepped with ChloraPrep. Sterilely assembled 6 mL syringe containing 48 mg of Synvisc and sterile 18 gauge 1-1/2 inch needle were inserted through the skin into posterior medial direction. No resistance was felt. Patient was negative. The injection went without complications. The patient tolerated the procedure well. Needle was withdrawn Band-Aid was applied. Orders: Orders AMB Joint Injection/Aspiration 07/28/24 M25.561 - Pain in right knee Coding Level of Care Code Procedure Only Diagnoses Right knee pain M25.561 CPT Codes Coding - 67517 Large joint: 39268 - Large joint ([id number])
[2024-07-28 13:03] VITALS: BP 119/59; PULSE 64; BMI 38.8
--- OUTSIDE RECORDS SUMMARY | 2024-07-28 14:52 | XMS_ITS | Clinical Summary ---
Author Organization [employer] Address [address] [place] [address] Care Team Providers Care Spanish Language Lecturer Name Role Phone Unavailable Primary Care Provider Unavailabl e Social History Tobacco Use Types Packs/Day Years Used Date Smoking Tobacco: Never Assessed Comments Unknown Sex and Gender Information Value Date Recorded Sex Assigned at Female 04/29/2022 10:34 AM EDT Legal Sex Female 10:34 AM EDT Gender Identity Choose not to disclose 10:34 AM EDT Sexual Orientation Choose not to disclose 2021 10:34 AM EDT Plan of Treatment Health Maintenance Due Date Last Done Comments CT Colonography 1976 Colonoscopy 1976 Colorectal Cancer Screening 1976 Depression Screening 1976 FIT DNA/Cologuard 1976 FIT 1976 FOBT 1976 Sigmoidoscopy 1976 Alcohol/Substance Use Screening 1988 Tobacco Screening 1988 Family Planning (PISQ) 12/14/1991 DTaP/Tdap/Td Vaccines (1 - Tdap) 12/14/1995 Hepatitis B Vaccines (1 of 3 - 19+ 3-dose series) 12/14/1995 Pap Smear 1997 Cervical Cancer Screening 2006 HPV/Cotest 2006 Mammogram 2016 COVID-19 Vaccine ( - 2023-2 5 season) 2024 Influenza Vaccine (#1) 2024 Zoster Vaccines (1 of 2) 2026 RSV Patients and Pa tients Aged 60 years or older (1 - 1-dose 75+ series) 12/14/2051 HIB Vaccines Aged Out No longer eligi ble based on patient's age to complete this topic HPV Vaccines Aged Out No longer eligi ble based on patient's age to complete this topic Hepatitis A Vaccines Aged Out No long er eligible based on patient's age to complete this topic IPV Vaccines Aged Out No longer eligi ble based on patient's age to complete this topic Meningococcal Vaccine Aged Out No chuck ladonna eligible based on patient's age to complete this topic Pneumococcal Vaccine: Pediat rics (0 to 5 Years) and At-Risk Patients (6 to 49) Years) Aged Out No longer eligible b ased on patient's age to complete this topic RSV under 20 months Aged Out No longe r eligible based on patient's age to complete this topic Rotavirus Vaccines Aged Out No longer eligible based on patient's age to complete this topic
--- OUTSIDE RECORDS SUMMARY | 2024-07-28 14:52 | XMS_ITS | Encounter Summary ---
Author Organization [facility], Address [address] [place] [address] Phone Care Team Providers Care Lube Attendant Name Role Phone Villa Lr MD Primary Care Provider +1- [phone] Encounter Details Date Type Department Care Team (Late st Contact Info) Description 06/10/2022 Documentation Only [facility], [address] [place] [address] Abdulkadir Osorio MD [address] [place] [address] [place] [address] Social History Tobacco Use Types [...] Visit [facility] [address] [place] [address] Abdulkadir Osorio MD [address] [place] [address] documented as of this encounter Visit Diagnoses Not on filedocumented in this encounter Care Teams Lube Attendant Relationship Specialty Start Date End Date Villa Lr MD [address] [place] [address] PCP - General 05/04/19 documented as of this encounter
--- OUTSIDE RECORDS SUMMARY | 2024-07-28 14:52 | XMS_ITS | Encounter Summary ---
Author Organization [facility] Address [address] [place] [address] Care Team Providers Care Slotter Operator Helper Name Role Phone Unavailable Primary Care Provider Unavailabl e Encounter Details Date Type Department Care Team (Latest Contact Info) Description 05/17/[address] [facility] CONVERSIONS Dental, Provider, DDS Social History Tobacco Use Types Packs/Day Years Used Date Smoking Tobacco: Never Assessed Comments Unknown Sex and Gender Information Value Date Recorded Sex Assigned at Female 04/29/2022 10:34 AM EDT Legal Sex Female 10:34 AM EDT Gender Identity Choose not to disclose 10:34 AM EDT Sexual Orientation Choose not to disclose 2021 10:34 AM EDT documented as of this encounter Plan of Treatment Not on file documented as of this encounter Visit Diagnoses Not on filedocumented in this encounter
--- OUTSIDE RECORDS SUMMARY | 2024-07-28 14:52 | XMS_ITS | Clinical Summary ---
Author Organization [facility], Address [address] [place] [address] [place] [address] Phone Care Team Providers Care Core Composer Machine Tender Name Role Phone Villa Lr MD Primary Care Provider +1- [phone] Allergies No known active allergies Medications clonazePAM [...] D BEFORE MEALS DIRECTED. 1 Active Creon 55579-83783 units capsule TOME 1 C PSULA POR [...] Visit [facility], [address] [place] [address] Abdulkadir Osorio MD [address] [place] [address] Health Maintenance Due Date Last Done Comments [...] Glucose 105(H) 70 - 99 mg/dL [facility] Uric Acid 3.8 2.6 - 6.2 mg/dL [facility] Comment:Therapeutic target f or gout patients: <6.0 BUN 11 6 - 24 mg/dL [facility] Creatinine 0.58 0.57 - 1.00 mg/dL [facility] eGFR CKD-EPI CR 2020 112 >59 mL/min/1.7 3 [facility] BUN/Creatinine Ratio 19 9 - 23 [facility] Sodium 139 134 - 144 mmol/L [facility] Potassium 4.3 3.5 - 5.2 mmol/L [facility] Chloride 103 96 - 106 mmol/L [facility] Bicarbonate (CO2) 22 20 - 29 mmol/L [facility] Anion Gap 14.0 10.0 - 18.0 mmol/L [facility] Calcium 9.9 8.7 - 10.2 mg/dL [facility] Total Protein 6.6 6.0 - 8.5 g/dL [facility] Albumin 4.2 3.9 - 4.9 g/dL [facility] Globulin 2.4 1.5 - 4.5 g/dL [facility] Phosphorus 3.4 3.0 - 4.3 mg/dL [facility] 07/05/2024 11:4 4 AM EST 07/05/2024 us Abdulkadir Osorio MD LAB [id number] OLICITED RESULTS Final Result [facility] [address] [place] [address] * Microscopic Examination (07/05/2024 11:44 AM EST) WBC, Urine None seen 0 - 5 /hpf [facility] RBC, Urine None seen 0 - 2 /hpf [facility] Squamous Epithelial, Urine 0-10 0 - 10 /hpf [facility] Casts None seen None seen /lpf [facility] Bacteria, Urine None seen None seen/Few [facility] 07/05/2024 11:4 4 AM EST 07/05/2024 Abdulkadir Osorio MD LAB MICROBIOLOGY - GENERAL ORD ERABLES Final Result [facility] [address] [place] [address] * (ABNORMAL) Iron Panel (Fe, TIBC, TSAT) (07/05/2024 11:44 AM EST) Pathologist [facility] TIBC 385 250 - 450 ug/dL [facility] UIBC 348 131 - 425 ug/dL [facility] Iron 37 27 - 159 ug/dL [facility] Iron Saturation (TSat) 10(L) 15 - 55 % [facility] 07/05/2024 11:4 4 AM EST 07/05/2024 us Abdulkadir Osorio MD LAB BLOOD ORDERABLES Final Res ult [facility] [address] [place] [address] * Urine Albumin / Creatinine Ratio (07/05/2024 11:44 AM EST) Creatinine, Ur 55.2 Not Estab. mg/dL [facility] Urine Microalbumin <3.0 Not Estab. ug/mL [facility] Microalbumin/Crea tinine Ratio <5 0 - 29 mg/g creat [facility] Comment: ? Normal: ?0 - ??29 ? Moderately increased: 30 - 300 ? Severely increased: ? >300 07/05/2024 11:4 4 AM EST 07/05/2024 us Abdulkadir Osorio MD LAB URINE ORDERABLES Final Res ult [facility] [address] [place] [address] * Vitamin D 25 Hydroxy (07/05/2024 11:44 AM EST) Vitamin D, 25-OH, Total 30.0 30.0 - 100.0 ng/mL [facility] Comment: Vitamin D deficiency has been defined by the [place] of Medicine and an Endocrine Society practice guideline as a level of serum 25-OH vitamin D less than 20 ng/mL (1,2). The Endocrine Society went on to further define vitamin D insufficiency as a level between 21 and 29 ng/mL (2). 1. IOM ([place] of Medicine). 2010. Dietary reference ?? intakes for calcium and D. [place]: The ?? National [employer]. 2. Levy MF, [place], Ousmane OCAMPO, et al. ?? Evaluation, treatment, and prevention of vitamin D ?? deficiency: an Endocrine Society clinical practice ?? guideline. JCEM. 2010; 96(7):1911-30. 07/05/2024 11:4 4 AM EST 07/05/2024 us Abdulkadir Osorio MD LAB BLOOD ORDERABLES Final Res ult [facility] [address] [place] [address] * (ABNORMAL) Urinalysis with microscopic (07/05/2024 11:44 AM EST) Specific [place], Urine 1.011 1.005 - 1.030 [facility] pH Urine 8.0(H) 5.0 - 7.5 [facility] Color, Urine Yellow Yellow [facility] Appearance Urine Clear Clear [facility] WBC Esterase Urine Negative Negative [facility] Protein, Ur Negative Negative/Tra ce [facility] Glucose, Ur Negative Negative [facility] Ketones, Urine Negative Negative [facility] Blood Urine Negative Negative [facility] [phone] Bilirubin Urine Negative Negative [facility] Urobilinogen Urine 0.2 0.2 - 1.0 mg/dL [facility] Nitrite, Urine Negative Negative [facility] Microscopic Examination Comment [facility] Comment:Microscopic follows if indicated. Other Microsc. Observations See below: [facility] Comment:Microscopic was casper cated and was performed. 07/05/2024 11:4 4 AM EST 07/05/2024 us Abdulkadir Osorio MD LAB URINE ORDERABLES Final Res ult [facility] [address] [place] [address] * (ABNORMAL) CBC and Differential (07/05/2024 11:44 AM EST) WBC 7.6 3.4 - 10.8 x10E3/uL [facility] RBC 4.00 3.77 - 5.28 x10E6/uL [facility] Hemoglobin 11.7 11.1 - 15.9 g/dL [facility] Hematocrit 38.1 34.0 - 46.6 % [facility] MCV 95 79 - 97 fL [facility] MCH 29.3 26.6 - 33.0 pg [facility] MCHC 30.7(L) 31.5 - 35.7 g/dL [facility] RDW 13.1 11.7 - 15.4 % [facility] Platelets 284 150 - 450 x10E3/uL [facility] Neutrophils Relative 61 Not Estab. % [facility] Lymphocytes Relative 30 Not Estab. % [facility] Monocytes 8 Not Estab. % [facility] Eosinophils Relative 1 Not Estab. % [facility] Basophils Relative 0 Not Estab. % [facility] Neutrophils Absolute 4.6 1.4 - 7.0 x10E3/uL [facility] Lymphocytes Absolute 2.3 0.7 - 3.1 x10E3/uL [facility] Monocytes Absolute 0.6 0.1 - 0.9 x10E3/uL [facility] Eosinophils Absolute 0.1 0.0 - 0.4 x10E3/uL [facility] Basophils Absolute 0.0 0.0 - 0.2 x10E3/uL [facility] Immature Granulocytes 0 Not Estab. % [facility] Immature Grans (Absolute) 0.0 0.0 - 0.1 x10E3/uL [facility] 07/05/2024 11:4 4 AM EST 07/05/2024 us Abdulkadir Osorio MD LAB BLOOD ORDERABLES Final Res ult Performing Organization Address City/[facility]/ZIP Co de Phone Number [facility] [address] [place] [address] * PTH, Intact (07/05/2024 11:44 AM EST) PTH 20 15 - 65 pg/mL [facility] 07/05/2024 11:4 4 AM EST 07/05/2024 us Abdulkadir Osorio MD LAB BLOOD ORDERABLES Final Res ult Performing Organization Address [facility]/ZIP Co de Phone Number [facility] [address] [place] [address] * Magnesium (07/05/2024 11:44 AM EST) Magnesium 1.9 1.6 - 2.3 mg/dL [facility] 07/05/2024 11:4 4 AM EST 07/05/2024 us Abdulkadir Osorio MD LAB BLOOD ORDERABLES Final Res ult Performing Organization Address [facility] de Phone Number [facility] [address] [place] [address] * (ABNORMAL) Hemoglobin A1c (07/05/2024 11:44 AM EST) Hemoglobin A1C 7.4(H) 4.8 - 5.6 % [facility] Comment: ? Prediabetes: 5.7 - 6.4 ? Diabetes: >6.4 ? Glycemic control for adults with diabetes: <7.0 07/05/2024 11:4 4 AM EST 07/05/2024 Abdulkadir Osorio MD LAB BLOOD ORDERABLES Final Res ult Performing Organization Address [facility] Co de Phone Number [facility] [address] [place] [address] * (ABNORMAL) Ferritin (07/05/2024 11:44 AM EST) Ferritin 11(L) 15 - 150 ng/mL [facility] 07/05/2024 11:4 4 AM EST 07/05/2024 Abdulkadir Osorio MD LAB BLOOD ORDERABLES Final Res ult Performing Organization Address [facility] Co de Phone Number [facility] [address] [place] [address] from Last 3 Months Insurance [address] [place] [id number] [place] [address] [employer] Care Teams Core Composer Machine Tender Relationship Specialty Start Date End Date Villa Lr MD [address] [place] [address] PCP - General 05/04/19
--- OUTSIDE RECORDS SUMMARY | 2024-07-28 14:52 | XMS_ITS | Data Portability ---
Author Organization [facility] [employer], Respi Address [address] [place] [address] Care Team Providers Care Tire Finisher Name Role Phone LATIA RASHID Referring Provider [...] She has occasional breakthrough headaches but ? n ot strong? . We reflected when she had reduced propranolol to 40 mg in the morning and 60 mg at night (all-be-it somewhat more abruptly than recommended) she had reemergence of headache. She would like to continue on propranolol 60 mg twice daily. In preparation for her visit today, I reviewed the propranolol prescription in [place] and noted that she had a 90-day [...] with April 2023 confirmation of medications from [facility]) -From [facility]: propranolol 60 mg twice daily topiramate 100 mg twice daily, Aimovig 140 mg/mL monthly autoinjector and Ubrelvy 100 mg as needed for breakthrough migraine from [facility] (she was also concurrently on rizatriptan [...] with April 2023 confirmation of medications from [facility]) -From [facility]: propranolol 60 mg twice daily topiramate 100 mg twice daily, Aimovig 140 mg/mL monthly autoinjector and Ubrelvy 100 mg as needed for breakthrough migraine from [facility] (she was also concurrently on rizatriptan [...] in 1 month. Pedraza preguntado por la reducci? ? ?n del topiramato. Estoy de acuerdo en que es razonable si tim que fernando migra? ? ?as est? ? ?n marcelino controladas con Aimovig para reducir la carga de medicaci? ? ?n. Inicialmente hablamos de reducir hilario topiramato en 25 mg/mes, eduardo despu? ? ?s de reflexionar un poco m? ? ?s, con pastillas de 100 mg y con un seguimiento estrecho, creo que es razonable reducirlo en un 25%, lo que equivale a 50 mg y a la mitad de hilario pastilla de 100 mg. Por lo tanto, Reduzca el topiramato cristiano sigue: Topiramato 100 mg comprimidos: Cambie 1 comprimido cada ma? ? ?laurent por 1/2 comprimido cada ma? ? ?laurent. Contin? ? ?e con 1 comprimido cada noche. Seguimiento en 1 mes. Traducci? ? ?n realizada con la versi? ? ?n gratuita del traductor [employer] (with edits by me) -Continue propranolol 60mg [...] with April 2023 confirmation of medications from [facility]) -From [facility]: propranolol 60 mg twice daily topiramate 100 mg twice daily, Aimovig 140 mg/mL monthly autoinjector and Ubrelvy 100 mg as needed for breakthrough migraine from [facility] (she was also concurrently on rizatriptan [...] extra dose in her refrigerator and to shredder picker the new prescription when it gets. [...] with April 2023 confirmation of medications from [facility]) -From [facility]: propranolol 60 mg twice daily topiramate 100 mg twice daily, Aimovig 140 mg/mL monthly autoinjector and Ubrelvy 100 mg as needed for breakthrough migraine from [facility] (she was also concurrently on rizatriptan [...] as main contributor to near migraine resolution? o nce every 2 weeks going away with Ubrelvy [...] extra dose in her refrigerator and to shredder picker the new prescription when it gets. [...] with April 2023 confirmation of medications from [facility]) -From [facility]: propranolol 60 mg twice daily topiramate 100 mg twice daily, Aimovig 140 mg/mL monthly autoinjector and Ubrelvy 100 mg as needed for breakthrough migraine from [facility] (she was also concurrently on rizatriptan [...] topiramat e 100 mg tablet 2022 023 [facility]acy #[id number], [address] [place], [address], 05/28/2023 09:56:01 propranol ol 60 mg tablet 2022 023 [facility], [address] [place] [address], [address], 05/28/2023 09:56:01 Aimovig Autoinjec tor 140 mg/mL subcutane ous auto-inje ctor 2022 023 [facility] [address] [place] [address], [address], 03/23/2024 12:59:57 Ubrelvy 100 mg tablet 2022 023 [facility], [address] [place], [address], 05/28/2023 09:56:01 topiramat e 100 mg tablet 2023 024 [facility], [address] [place], [address], 10/07/2023 10:22:21 propranol ol 60 mg tablet 2023 024 [facility] #037[facility], [address] [place], [address], 10/07/2023 10:22:21 Aimovig Autoinjec tor 140 mg/mL subcutane ous auto-inje ctor 2023 024 [facility] [address] [place], [address], 03/23/2024 12:59:57 Ubrelvy 100 mg tablet 2023 024 [facility], [address] [place], [address], 10/07/2023 10:22:21 propranol ol 60 mg tablet 2023 024 [facility], [address] [place], [address], 11/11/2023 11:21:02 topiramat e 50 mg tablet 2023 024 [facility], [address] [place], [address], 11/11/2023 11:21:03 Aimovig Autoinjec tor 140 mg/mL subcutane ous auto-inje ctor 2023 024 [facility]/Pharmacy #0373, [address] [place], [address], 03/23/2024 12:59:57 Ubrelvy 100 mg tablet 2023 024 [facility], [address] [place], [address], 11/11/2023 11:21:02 Ajovy 225 mg/1.5 mL subcutane ous auto-inje ctor 2023 024 [facility]/Pharmacy #0373, [address] [place], [address], 12/10/2023 12:17:38 Ajovy 225 mg/1.5 mL subcutane ous auto-inje ctor 2023 024 [facility] #0373, [address] [place], [address], 03/23/2024 12:47:06 Ubrelvy 100 mg tablet 2023 024 [facility]/Ph[facility]acy #[id number], [address], [place], [address], 03/23/2024 12:47:07 Patient TargetsNo targets recorded. 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 She will shredder picker a sample today. 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 Dizziness is better. She has occasional breakthrough headaches but ? n ot strong? . We reflected when she had reduced propranolol to 40 mg in the morning and 60 mg at night (all-be-it somewhat more abruptly than recommended) she had reemergence of headache. She would like to continue on propranolol 60 mg twice daily. -In preparation for her visit today, I reviewed the propranolol prescription in [place] and noted that she had a 90-day [...] not discuss the addition of rizatriptan through [employer] which we have discussed previously as she [...] over the potential side effects. She will shredder picker a sample today. 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 n ot strong? . We reflected when she had reduced propranolol to 40 mg in the morning and 60 mg at night (all-be-it somewhat more abruptly than recommended) she had reemergence of headache. She would like to continue on propranolol 60 mg twice daily. -In preparation for her visit today, I reviewed the propranolol prescription in [place] and noted that she had a 90-day [...] not discuss the addition of rizatriptan through [employer] which we have discussed previously as she [...] over the potential side effects. She will shredder picker a sample today. 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 n ot strong? . We reflected when she had reduced propranolol to 40 mg in the morning and 60 mg at night (all-be-it somewhat more abruptly than recommended) she had reemergence of headache. She would like to continue on propranolol 60 mg twice daily. -In preparation for her visit today, I reviewed the propranolol prescription in [place] and noted that she had a 90-day [...] better than rizatriptan did in the past. Kimberly is due for renewal in May, we [...] not discuss the addition of rizatriptan through [employer] which we have discussed previously as she [...] over the potential side effects. She will shredder picker a sample today. 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 n ot strong? . We reflected when she had reduced propranolol to 40 mg in the morning and 60 mg at night (all-be-it somewhat more abruptly than recommended) she had reemergence of headache. She would like to continue on propranolol 60 mg twice daily. -In preparation for her visit today, I reviewed the propranolol prescription in [place] and noted that she had a 90-day [...] every day. She was running out of [employer] for breakthrough migraine reported October 01, 2022. [...] not discuss the addition of rizatriptan through [employer] which we have discussed previously as she [...] over the potential side effects. She will shredder picker a sample today. 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 Procedures Surgical History Date Name Laterality Status Provider Name and Address Organization Details Recorded Time 4 botulinum injection completed Imer Lieberman MD [address] [place], [place] [address], [address], [facility] 03/23/2024 12:37:46 4 botulinum injection completed Imer Lieberman MD [address] [place], [place] [address], [address], [facility] 12/10/2023 11:56:10 4 botulinum injection completed Imer Lieberman MD [address] [place], [place] [address], [address], [facility] 11/11/2023 11:10:22 4 botulinum injection completed ENRIKE NORTON PA-C [address] [place], [place] [address], [address], [facility] 10/07/2023 10:03:49 3 botulinum injection completed ENRIKE NORTON PA-C [address] [place], [place] [address], [address], [facility] 05/28/2023 09:39:33 3 botulinum injection completed ENRIKE NORTON PA-C [address] [place], [place] [address], [address], [facility] 04/24/2023 10:42:13 3 botulinum injection completed ENRIKE NORTON PA-C [address] [place], [place] [address], [address], [facility] 03/18/2023 10:47:21 3 botulinum injection completed ENRIKE NORTON PA-C [address] [place], [place] [address], [address], [facility] 01/23/2023 09:59:39 3 botulinum injection completed ENRIKE NORTON PA-C [address] [place] [address] B, YAKOV [place], [address], [facility] 12/19/2022 11:33:40 3 botulinum injection completed ENRIKE NORTON PA-C [address] [place] [address] B, YAKOV [place], [address], [facility] 11/28/2022 13:56:45 3 botulinum injection completed ENRIKE NORTON PA-C [address] [place] [address] B, YAKOV [place], [address], [facility] 10/29/2022 10:47:52 3 botulinum injection completed ENRIKE NORTON PA-C [address] [place] [address] B, YAKOV [place], [address], [facility] 10/01/2022 13:50:41 3 botulinum injection completed Imer Lieberman MD [address] [place] [address] B, YAKOV [place], [address], [facility] 08/14/2022 17:00:39 3 botulinum injection completed ENRIKE NORTON PA-C [address] [place] [address] B, YAKOV [place], [address], [facility] 07/09/2022 14:05:58 2 botulinum injection completed Imer Lieberman MD [address] [place] [address] B, YAKOV [place], [address], [facility] 05/16/2022 13:33:52 2 botulinum injection completed ENRIKE NORTON PA-C [address] [place] [address] B, YAKOV [place], [address], [facility] 03/14/2022 14:10:23 2 botulinum injection completed Imer Lieberman MD [address] [place] [address] B, YAKOV [place], [address], [facility] 02/13/2022 09:15:23 2 botulinum injection completed ENRIKE NORTON PA-C [address] [place] [address], YAKOV Montero, [address], [facility] 12/06/2021 13:50:32 2 botulinum injection completed Imer Lieberman MD [address] [place] [address] B, YAKOV Montero, [address], [facility] 11/07/2021 13:30:06 2 botulinum injection completed ENRIKE NORTON PA-C [address] [place] [address] B, YAKOV [place]tero, [address], [facility] 09/05/2021 14:12:15 2 botulinum injection completed Imer Lieberman MD [address] [place] [address], YAKOV Montero, [address], [facility] 07/25/2021 15:27:34 2 botulinum injection completed ENRIKE NORTON PA-C [address] [place] [address], YAKOV Montero, [address], [facility] 07/12/2021 08:55:03 1 botulinum injection completed ENRIKE NORTON PA-C [address] [place] [address] B, YAKOV Montero, [address], [facility] 05/29/2021 22:54:52 1 botulinum injection completed Imer Lieberman MD [address] [place] [address], YAKOV Montero, [address], [facility] 04/25/2021 14:30:46 1 botulinum injection completed Imer Lieberman MD [address] [place] [address], YAKOV Montero, [address], [facility] 01/24/2021 19:05:02 1 botulinum injection completed Imer Lieberman MD [address] [place] [address] B, YAKOV Montero, [address], [facility] 10/25/2020 18:09:08 Imaging Results None recorded. 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 Dystonia 18236017 G24.3 Facial spasm 91646474 G5 1.39 Migraine without aura 56 877449 G43.009 [id number] Imer Lieberman MD [facility] [address] [place] [address] JOSE RETANAYAKOV RICHARD [address]643 4 01/24/2021 14:50:22 01/25/2021 08:16:40 Idiopathic non-familial dystonia 514152112 G24.1 Dystonia 15459755 G24.3 Facial spasm 87405202 G5 1.39 Migraine without aura 56 490620 G43.009 [id number] Imer Lieberman MD [facility] [address] [place] [address] JOSE RETANAYAKOV RICHARD [id number] 4 02/28/2021 11:51:24 02/28/2021 12:29:37 Idiopathic non-familial dystonia 654938760 G24.1 Dystonia 41898144 G24.3 Facial spasm 29563969 G5 1.39 Migraine without aura 56 765039 G43.009 [id number] Imer Lieberman MD [facility] [address] [place] [address] JOSE RETANAYAKOV RICHARD [id number] 4 04/25/2021 12:22:14 04/26/2021 07:40:15 Idiopathic non-familial dystonia 013990779 G24.1 Dystonia 56429432 G24.3 Facial spasm 93917036 G5 1.39 Migraine without aura 56 304880 G43.009 [id number] Imer Lieberman MD [facility] [address] [place] [address] JOSE RETANAYAKOV RICHARD [id number] 4 05/29/2021 10:02:07 05/30/2021 15:05:44 Idiopathic non-familial dystonia 103772113 G24.1 Dystonia 36159475 G24.3 Facial spasm 35341717 G5 1.39 Migraine without aura 56 244108 G43.009 Migraine with aura 09042 06 G43.109 [id number] Imer Lieberman MD [facility] [address] [place] [address] Gordo MONTERO YAKOV 80[address]-563 4 07/12/2021 08:51:06 08/03/2021 15:14:49 Idiopathic non-familial dystonia 485280746 G24.1 Dystonia 93752032 G24.3 Facial spasm 05342047 G5 1.39 Migraine without aura 56 490260 G43.009 [id number] Imer Lieberman MD [facility] [address] [place] [address] Gordo MONTERO YAKOV 280[address]-580 4 07/25/2021 13:52:53 07/25/2021 16:35:44 Idiopathic non-familial dystonia 345736966 G24.1 Dystonia 11152182 G24.3 Facial spasm 95383772 G5 1.39 Migraine without aura 56 899779 G43.009 [id number] Imer Lieberman MD [facility] [address] [place] [address] Gordo MONTEROYAKOV 82829-341 4 09/05/2021 14:01:17 09/10/2021 10:57:43 Idiopathic non-familial dystonia 834991139 G24.1 Dystonia 92531844 G24.3 Facial spasm 59534119 G5 1.39 Migraine without aura 56 734483 G43.009 [id number] Imer Lieberman MD [facility] [address] [place] [address] JOSE RETANAYAKOV RICHARD [id number] 4 11/07/2021 12:25:50 11/07/2021 18:58:37 Idiopathic non-familial dystonia 336668999 G24.1 Dystonia 95151362 G24.3 Facial spasm 67681365 G5 1.39 Migraine without aura 56 716711 G43.009 [id number] Imer Lieberman MD [facility] [address] [place] [address] Gordo RETANAWINSTONYAKOV RICHARD [id number] 4 12/06/2021 13:06:48 12/10/2021 15:27:19 Idiopathic non-familial dystonia 508200448 G24.1 Dystonia 07345199 G24.3 Facial spasm 06006720 G5 1.39 Migraine without aura 56 568962 G43.009 [id number] Imer Lieberman MD [facility] [address] [place] [address] Gordo YAKOV MONTERO [id number] 4 02/13/2022 07:56:35 02/13/2022 09:24:50 Idiopathic non-familial dystonia 431099256 G24.1 Dystonia 36466528 G24.3 Facial spasm 82903229 G5 1.39 Migraine without aura 56 655089 G43.009 [id number] Imer Lieberman MD [facility] [address] [place] [address] Gordo YAKOV MONTERO 96[address]940 4 03/14/2022 13:58:56 03/19/2022 09:35:39 Idiopathic non-familial dystonia 519161959 G24.1 Dystonia 73611991 G24.3 Facial spasm 41763600 G5 1.39 Migraine without aura 56 506025 G43.009 [id number] Imer Lieberman MD [facility] [address] [place] [address] Gordo YAKOV MONTERO [id number] 4 05/16/2022 11:40:07 05/16/2022 15:55:55 Idiopathic non-familial dystonia 045724267 G24.1 Dystonia 09314976 G24.3 Facial spasm 11749817 G5 1.39 Migraine without aura 56 498332 G43.009 [id number] Imer Lieberman MD [facility] [address] [place] [address] Gordo YAKOV MONTERO [id number] 4 07/09/2022 13:59:24 07/25/2022 12:39:21 Idiopathic non-familial dystonia 359978290 G24.1 Dystonia 69962198 G24.3 Facial spasm 56453336 G5 1.39 Migraine without aura 56 228521 G43.009 Migraine with aura 87533 06 G43.109 [id number] Imer Lieberman MD [facility] [address] [place] [address] Gordo YAKOV MONTERO 10700-969 4 08/14/2022 15:04:31 08/14/2022 17:43:36 Idiopathic non-familial dystonia 650315853 G24.1 Dystonia 49470849 G24.3 Facial spasm 52910401 G5 1.39 Migraine without aura 56 562873 G43.009 [id number] ENRIKE NORTON PA-C [facility] [address] [place] [address] B YAKOV MONTERO 80533-037 4 10/01/2022 13:45:47 10/03/2022 11:40:32 Idiopathic non-familial dystonia 664366972 G24.1 Dystonia 12138789 G24.3 Facial spasm 64391877 G5 1.39 Migraine without aura 56 634644 G43.009 Migraine with aura 39095 06 G43.109 [id number] Imer Lieberman MD [facility] [address] [place] [address] JOSE RETANAHILARY YAKOV [id number] 4 10/29/2022 10:18:41 11/04/2022 15:06:43 Idiopathic non-familial dystonia 184122794 G24.1 Dystonia 28659458 G24.3 Facial spasm 45886739 G5 1.39 Migraine without aura 56 529202 G43.009 Migraine with aura 76836 06 G43.109 [id number] ENRIKE NORTON PA-C [facility] [address] [place] [address] JOSE RETANAYAKOV RICHARD [id number] 4 11/28/2022 13:27:59 12/02/2022 15:28:22 Idiopathic non-familial dystonia 083557424 G24.1 Dystonia 12619850 G24.3 Facial spasm 76271819 G5 1.39 Migraine without aura 56 805371 G43.009 Migraine with aura 50168 06 G43.109 [id number] Imer Lieberman MD [facility] [address] [place] [address] JOSE MONTERO YAKOV [id number] 4 12/19/2022 11:07:15 12/23/2022 16:34:25 Idiopathic non-familial dystonia 247209174 G24.1 Dystonia 76002694 G24.3 Facial spasm 44857478 G5 1.39 Migraine without aura 56 857509 G43.009 Migraine with aura 84451 06 G43.109 [id number] Imer Lieberman MD [facility] [address] [place] [address] JOSE Gordo RETANAWINSTONYAKOV RICHARD [id number] 4 01/23/2023 09:21:21 02/10/2023 16:21:14 Idiopathic non-familial dystonia 402767213 G24.1 Dystonia 36836554 G24.3 Facial spasm 45925734 G5 1.39 Migraine without aura 56 628137 G43.009 Migraine with aura 64831 06 G43.109 [id number] Imer Lieberman MD [facility] [address] [place] [address] Gordo MONTERO YAKOV [id number] 4 03/18/2023 10:30:58 03/19/2023 17:32:28 Idiopathic non-familial dystonia 618703872 G24.1 Dystonia 38680883 G24.3 Facial spasm 69200108 G5 1.39 Migraine without aura 56 421344 G43.009 Migraine with aura 75799 06 G43.109 [id number] ENRIKE NORTON PA-C [facility] [address] [place] [address] Gordo MONTERO YAKOV [id number] 4 04/24/2023 10:15:35 04/30/2023 10:38:58 Idiopathic non-familial dystonia 050778079 G24.1 Dystonia 92690055 G24.3 Facial spasm 93570004 G5 1.39 Migraine without aura 56 441702 G43.009 Migraine with aura 31603 06 G43.109 [id number] Imer Lieberman MD [facility] [address] [place] [address] Gordo RETANAWINSTON, YAKOV 33050-098 4 05/28/2023 09:14:15 05/29/2023 16:35:04 Idiopathic non-familial dystonia 815228682 G24.1 Dystonia 59637111 G24.3 Facial spasm 04455947 G5 1.39 Migraine without aura 56 578990 G43.009 Migraine with aura 05150 06 G43.109 [id number] Imer Lieberman MD [facility] [address] [place] [address] Gordo RETANAWINSTONYAKOV RICHARD [id number] 4 10/07/2023 09:31:55 10/13/2023 13:14:20 Idiopathic non-familial dystonia 838704720 G24.1 Dystonia 28162080 G24.3 Facial spasm 52614966 G5 1.39 Migraine without aura 56 948747 G43.009 Migraine with aura 08436 06 G43.109 [id number] Imer Leiberman MD [facility] [address] [place] [address] Gordo RETANAWINSTON, YAKOV [id number] 4 11/11/2023 10:36:51 11/11/2023 11:43:45 Idiopathic non-familial dystonia 527935719 G24.1 Dystonia 87068158 G24.3 Facial spasm 30544540 G5 1.39 Migraine without aura 56 831910 G43.009 Migraine with aura 20228 06 G43.109 [id number] Imer Lieberman MD [facility] [address] [place] [address] [place] [id number] 4 12/10/2023 11:11:30 12/10/2023 12:19:37 Idiopathic non-familial dystonia 281769740 G24.1 Dystonia 33623112 G24.3 Facial spasm 95612606 G5 1.39 Migraine without aura 56 004341 G43.009 Migraine with aura 15415 06 G43.109 [id number] Imer Lieberman MD [facility] [address] [place] [address] [place] [address] 03/23/2024 11:39:14 03/23/2024 17:16:47 Idiopathic non-familial dystonia [id number] G24.1 Dystonia [id number] G24.3 Facial spasm [id number] G5 1.39 Migraine without aura 56 [id number] G43.009 Migraine with aura 75938 06 G43.109 Health Concerns Section Related Observation LastModified by Organization Detai ls LastModified Time None Recorded Concern Status LastModified by Organization Details LastModified Time None Recorded Advance Directives Directive None Recorded Payers Encounter Date Sequence Insurance Name Policy Number Policy Leone Covered Member ID Leone Member ID Guarantor Name 05/28/2023 1 [facility] ([facility] [place] Ute Ashlyn [id number] Ute Ashlyn 10/07/2023 1 [facility] ([facility] [place] Ute Ashlyn [id number] Ute Ashlyn 11/11/2023 1 [facility] ([facility] [place] Ute Ashlyn [id number] Ute Ashlyn 12/10/2023 1 [facility] ([facility] [place] Ute Ashlyn [id number] Ute Ashlyn 03/23/2024 1 [facility] ([facility] [place] Ute Ashlyn [id number] Ute Ashlyn Notes Date Note Type Note [...] She is working with Andreina Greer APRN, [facility] and will be having an injection to her low back on May 01. >>>>>>>>>>>>Febyumi 2022Since January 23, 2023 neurology follow-up, she [...] is on right now. She explains ? y ou lowered the dose to 60 in the [...] 2/week and less severe than before, ? n ot like a big headache? . She has [...] but she has also been to her bulk driver/ophthalm ologist and had her glasses changed but [...] She came in later that day to shredder picker the Aimovig 70 mg/mL sample and ? p ut it in? on October 02, 2022. She [...] 2 months ago they were worse ? O h my God, they were every day which [...] a good holiday. Today, she reports ? t his time after botox it is doing good? [...] with psychiatry on this. 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 Past history includes a psychiatric comorbidity and fibromyalgia. She is accompanied by her , Nuar; Not present, Catherine, her sister. >>>>>>>>>>>>October 07 [...] She is working with Andreina Greer APRN, [facility] and will be [...] is on right now. She explains ? y ou lowered the dose to 60 in the [...] 2/week and less severe than before, ? n ot like a big headache? . She has [...] but she has also been to her bulk driver/ophthalm ologist and had her glasses changed but [...] She came in later that day to shredder picker the Aimovig 70 mg/mL sample and ? p ut it in? on October 02, 2022. She [...] 2 months ago they were worse ? O h my God, they were every day which [...] a good holiday. Today, she reports ? t his time after botox it is doing good? [...] with psychiatry on this. Imer Lieberman MD [address] [place] [address] Winston Caro YAKOV, [phone], [facility] 10/13/2023 11:40:53 11/11/2023 text/html Follow-up of [...] She is working with Andreina Greer APRN, [facility] and will be having an injection to her low back on May 01. >>>>>>>>>>>>Brittanye r 2022Since January 23, 2023 neurology follow-up, [...] is on right now. She explains ? y ou lowered the dose to 60 in the [...] 2/week and less severe than before, ? n ot like a big headache? . She has [...] but she has also been to her bulk driver/ophthalm ologist and had her glasses changed but [...] She came in later that day to shredder picker the Aimovig 70 mg/mL sample and ? p ut it in? on October 02, 2022. She [...] 2 months ago they were worse ? O h my God, they were every day which [...] to decide between Botox or Aimovig. >>>>>>>>>>>>>>>Domingo w of August 14, 2022 Botox injections comments [...] a good holiday. Today, she reports ? t his time after botox it is doing good? [...] with psychiatry on this. Imer Lieberman MD [address] [place] [address], [phone], [facility] 11/11/2023 11:32:39 12/10/2023 text/html Follow-up of [...] She is working with Andreina Greer APRN, [facility] and will be having an injection to her low back on May 01. >>>>>>>>>>>>Brittanye r 2022Since January 23, 2023 neurology follow-up, [...] is on right now. She explains ? y ou lowered the dose to 60 in the [...] 2/week and less severe than before, ? n ot like a big headache? . She has [...] but she has also been to her bulk driver/ophthalm ologist and had her glasses changed but [...] She came in later that day to shredder picker the Aimovig 70 mg/mL sample and ? p ut it in? on October 02, 2022. She [...] 2 months ago they were worse ? O h my God, they were every day which [...] a good holiday. Today, she reports ? t his time after botox it is doing good? [...] with psychiatry on this. Imer Lieberman MD [address] [place] [address] [place], [phone], [facility] 12/10/2023 12:17:54 03/23/2024 text/html Follow-up of [...] She is working with Andreina Greer APRN, [facility] and will be [...] is on right now. She explains ? y ou lowered the dose to 60 in the [...] 2/week and less severe than before, ? n ot like a big headache? . She has [...] but she has also been to her bulk driver/ophthalm ologist and had her glasses changed but [...] She came in later that day to shredder picker the Aimovig 70 mg/mL sample and ? p ut it in? on October 02, 2022. She [...] 2 months ago they were worse ? O h my God, they were every day which [...] a good holiday. Today, she reports ? t his time after botox it is doing good? [...] with psychiatry on this. Imer Lieberman MD [address] [place] [address] [place], [phone], [facility] 03/23/2024 13:04:47 OBGyn Episode No OBEpisode recorded.
--- OUTSIDE RECORDS SUMMARY | 2024-07-28 14:52 | XMS_ITS | Encounter Summary ---
Author Organization [facility], Address [address] [place] [address] Phone Care Team Providers Care Flatlock Sewing Machine Operator Name Role Phone Villa Lr MD Primary Care Provider [phone] Encounter Details Date Type Department Care Team (Late st Contact Info) Description 06/16/2023 Documentation Only [facility], [address] [address] Abdulkadir Osorio MD [address] [place] [address] [place] [address] Social History Tobacco Use Types [...] [facility] [address] [place] [address] Abdulkadir Osorio MD [address] [place] [address] documented as of this encounter Visit Diagnoses Not on filedocumented in this encounter Care Teams Flatlock Sewing Machine Operator Relationship Specialty Start Date End Date Villa Lr MD [address] [place] [address] PCP - General 05/04/19 documented as of this encounter
--- OUTSIDE RECORDS SUMMARY | 2024-07-28 14:52 | XMS_ITS | Encounter Summary ---
Author Organization [facility] Address [address] [place] [address] Care Team Providers Care Doctor'S Assistant Name Role Phone Unavailable Primary Care Provider Unavailabl e Encounter Details Date Type Department Care Team (Latest Contact Info) Description 03/18/2019 Abstract [facility] CONVERSIONS Dental, Provider, DDS Social History Tobacco [...]
== END 2024-07-28 13:21 | disposition home or self-care (01) ==
PROVIDERS: PCP Internal Medicine; Visit Provider Anesthesiology
DX: M25.561 Pain in right knee (principal)
CPT/HCPCS: 20610

== ENCOUNTER → 2024-07-28 12:45 | Outpatient (BNVA) | payer OTHER, SELFPAY | PROVIDERS: PCP Internal Medicine; Visit Provider Anesthesiology | DX: M25.561 Pain in right knee (principal) | CPT/HCPCS: 20610; J7325 ==

== ENCOUNTER → 2024-08-06 08:34 | Outpatient (AMB) ==
--- NOTE | 2024-08-06 08:49 | A.OFFVIS_ITS ---
Vital Signs 08/06/24 08:49 Height 5 ft 4 in Weight 227 lb BMI 39.0 BP 127/58 L Blood Pressure Location Rt brachial Position Sitting Pulse 76 Intake Visit Reasons: S/P exc. skin lesion Lt nipple Intake Note: Patient here s/p exc Lt nipple. Reports incision healing well. Patient c/o: itch, feels pressure at site. Denies pain, redness, oozing. Oxycodone was not approved by insurance. Taking Tylenol as needed. Crusher Loader Operator Required: No Accompanied by: Self / Same As Patient Allergies meclizine Adverse Reaction (Verified 08/06/24 08:51) tachycardia metoclopramide Adverse Reaction (Verified 08/06/24 08:51) tachycardia HPI Comments Details: 48-year-old female patient presenting for evaluation of a cutaneous cyst of the left nipple. She 1st noted the skin change approximately 1 month ago when it became red and swollen. She also reports pain associated with the lesion. This subsequently subsided however she is still able to see a bump in the skin. She denies being placed on antibiotics in the meantime. She denies any bleeding or discharge from the site. She notes cold weather makes the lesion more prominent and painful. No changes are noted in the right breast. Her most recent mammogram performed on 08/25/2023 revealed no mammographic evidence of malignancy (BI-RADS 1). She is scheduled for her annual mammogram on 08/30/2024. Her family history is significant for a maternal grandmother with breast cancer. She denies any previous history of breast problems or breast surgery. She is in her menarche was at the age of 13. She underwent excision of this left nipple lesion on 07/26/2024. Pathology revealed nipple and skin with mild dermal fibrosis, mildly dilated ducts, small epidermal inclusion cyst and chronic inflammation. No atypia or malignancy was identified. She tolerated the procedure well but mainly complains of itchiness in the incision. [facility] Medical History Overactive bladder Diarrhea Morbid obesity with BMI of 40.0-44.9, adult Biliary dyskinesia Elevated TSH Obesity (BMI 30-39.9) Depression Anxiety Insomnia Obstructive sleep apnea Vitamin D deficiency 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 myelopathy or radiculopathy Elevated LFTs Allergic rhinitis Asthma Migraine Pure hypercholesterolemia Benign essential hypertension Diabetes mellitus IBS (irritable bowel syndrome) Gastroparesis Surgical History History of surgical removal of skin lesion (07/26/24) Status post epidural steroid injection History of cardiac cath Hx of tubal ligation Hx of colonoscopy (~03/2018) Hx of endoscopy History of surgery of head Hx of hysterectomy (~08/2011) Family History Father Diabetes Hypertension Heart problem Mother Arthritis Diabetes Hypertension Maternal Grandmother Breast cancer, Onset Age: 72 Family/Other Diabetes Hypertension Heart problem Social History Household Members: Spouse Housing: House Are you a primary healthcare architect to a significant other at home: No Do you presently have visiting nurse or other home services: No Alcohol intake: current Alcohol intake frequency: former alcohol drinker Comment: NOT INDICATED Patient Tobacco Use Status: Never used Tobacco e-Cigarette/Vaping Use: Never Used Second Hand Smoke Exposure: No Advance Directives Date on File: 03/20/16 service: No Current occupational status: disabled Cognitive needs: No Hearing needs: No Vision needs: Yes Female Reproductive History Menstrual Age of Menarche: 13 Physical Exam Vital Signs: Last Vital Signs Pulse 76 08/06/24 08:49 BP 127/58 L 08/06/24 08:49 BMI result Body Mass Index 39.0 Const General: no acute distress Nutritional Appearance: well nourished Orientation/consciousness: patient oriented x3 Chest Other: Left nipple incision is clean, dry and intact. Sutures removed and the wounds found to be well healed. No evidence of infection or drainage. Resp Effort & Inspection: normal respiratory effort Skin General skin exam: dry skin Neuro General: patient oriented x3 Assessment & Plan Assessment & Plan (1) Cyst of skin of left breast: Code(s): N60.82 - Other benign mammary dysplasias of left breast Category: Medical Plan Patient returns 1 week following excision of a left nipple lesion. The pathology was benign in the wounds have healed nicely. Sutures removed today. Patient should follow up as needed. Coding Level of Care Code Global (51638) Diagnoses Cyst of skin of left breast N60.82
--- OUTSIDE RECORDS SUMMARY | 2024-08-06 08:59 | XMS_ITS | Encounter Summary ---
Author Organization [facility] Address [address] [place] [address] Care Team Providers Care Senior Software Architect Name Role Phone Unavailable Primary Care Provider Unavailabl e Encounter Details Date Type Department Care Team (Latest Contact Info) Description 03/18/2019 Abstract [facility] CONVERSIONS Dental, Provider, DDS Social History [...]
--- OUTSIDE RECORDS SUMMARY | 2024-08-06 08:59 | XMS_ITS | Data Portability ---
Author Organization [facility] [place], [employer] Address [address] [facility] [place] [address] Care Team Providers Care Jet Piercer Operator Name Role Phone LATIA RASHID Referring [...] today, I reviewed the propranolol prescription in [place] and noted that she had a 90-day [...] with April 2023 confirmation of medications from [facility]) -From [facility]: propranolol 60 mg twice daily topiramate 100 mg twice daily, Aimovig 140 mg/mL monthly autoinjector and Ubrelvy 100 mg as needed for breakthrough migraine from [facility] (she was also concurrently on rizatriptan [...] with April 2023 confirmation of medications from [facility]) -From [facility]: propranolol 60 mg twice daily topiramate 100 mg twice daily, Aimovig 140 mg/mL monthly autoinjector and Ubrelvy 100 mg as needed for breakthrough migraine from [facility] (she was also concurrently on rizatriptan [...] la versi? ? ?n gratuita del traductor [email or web address] (with edits by me) -Continue propranolol 60mg [...] with April 2023 confirmation of medications from [facility]) -From [facility]: propranolol 60 mg twice daily topiramate 100 mg twice daily, Aimovig 140 mg/mL monthly autoinjector and Ubrelvy 100 mg as needed for breakthrough migraine from [facility] (she was also concurrently on rizatriptan [...] extra dose in her refrigerator and to milk pickup truck driver the new prescription when it gets. Therefore, [...] with April 2023 confirmation of medications from [facility]) -From [facility]: propranolol 60 mg twice daily topiramate 100 mg twice daily, Aimovig 140 mg/mL monthly autoinjector and Ubrelvy 100 mg as needed for breakthrough migraine from [facility] (she was also concurrently on rizatriptan [...] extra dose in her refrigerator and to milk pickup truck driver the new prescription when it gets. Therefore, [...] with April 2023 confirmation of medications from [facility]) -From [facility]: propranolol 60 mg twice daily topiramate 100 mg twice daily, Aimovig 140 mg/mL monthly autoinjector and Ubrelvy 100 mg as needed for breakthrough migraine from [facility] (she was also concurrently on rizatriptan [...] topiramat e 100 mg tablet 2022 023 [facility] #[id number], [address] [place], [address], 05/28/2023 09:56:01 propranol ol 60 mg tablet 2022 023 [id number] [address] [place] [address], [address], 05/28/2023 09:56:01 Aimovig Autoinjec tor 140 mg/mL subcutane ous auto-inje ctor 2022 023 [id number] [address] [place] [address], [address], 03/23/2024 12:59:57 Ubrelvy 100 mg tablet 2022 023 [facility] [address] [place], [address], 05/28/2023 09:56:01 topiramat e 100 mg tablet 2023 024 [facility] [address] [place], [address], 10/07/2023 10:22:21 propranol ol 60 mg tablet 2023 024 [facility], [address] [place], [address], 10/07/2023 10:22:21 Aimovig Autoinjec tor 140 mg/mL subcutane ous auto-inje ctor 2023 024 [facility] [address] [place], [address], 03/23/2024 12:59:57 Ubrelvy 100 mg tablet 2023 024 [facility] [address] [place], [address], 10/07/2023 10:22:21 propranol ol 60 mg tablet 2023 024 [facility] [address] [place], [address], 11/11/2023 11:21:02 topiramat e 50 mg tablet 2023 024 [facility] [address] [place], [address], 11/11/2023 11:21:03 Aimovig Autoinjec tor 140 mg/mL subcutane ous auto-inje ctor 2023 024 [facility]acy #0373, [address] [place], [address], 03/23/2024 12:59:57 Ubrelvy 100 mg tablet 2023 024 [id number] [address] [place], [address], 11/11/2023 11:21:02 Ajovy 225 mg/1.5 mL subcutane ous auto-inje ctor 2023 024 [facility] #0373, [address] [place], [address], 12/10/2023 12:17:38 Ajovy 225 mg/1.5 mL subcutane ous auto-inje ctor 2023 024 [facility] #037[facility], [address] [place], [address], 03/23/2024 12:47:06 Ubrelvy 100 mg tablet 2023 024 [facility] #[id number], [address] [facility], [place], [address], 03/23/2024 12:47:07 Patient TargetsNo targets recorded. 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 She was running out of UbrelXTRM for breakthrough migraine reported October 01, 2022. [...] not discuss the addition of rizatriptan through [facility] which we have discussed previously as she [...] over the potential side effects. 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 Procedures Surgical History Date Name Laterality Status Provider Name and Address Organization Details Recorded Time 4 botulinum injection completed Imer Lieberman MD [address] [place], [place] [address], [address], [facility] 03/23/2024 12:37:46 4 botulinum injection completed Imer Lieberman MD [address] [place], [place] [address], [address], [facility] 12/10/2023 11:56:10 4 botulinum injection completed Imer Lieberman MD [address] [place], [place] [address], [address], [facility] 11/11/2023 11:10:22 4 botulinum injection completed ENRIKE NORTON PA-C [address] [place], [place] [address], [address], [facility] 10/07/2023 10:03:49 3 botulinum injection completed ENRIKE NORTON PA-C [address] [place], [place] [address], [address], [facility] 05/28/2023 09:39:33 3 botulinum injection completed ENRIKE NORTON PA-C [address] [place], [place] [address], [address], [facility] 04/24/2023 10:42:13 3 botulinum injection completed ENRIKE NORTON PA-C [address] [place], [place] [address], [address], [facility] 03/18/2023 10:47:21 3 botulinum injection completed ENRIKE NORTON PA-C [address] [place], [place] [address], [address], [facility] 01/23/2023 09:59:39 3 botulinum injection completed ENRIKE NORTON PA-C [address] [place] [address] B, YAKOV Montero, [address], [facility] 12/19/2022 11:33:40 3 botulinum injection completed ENRIKE NORTON PA-C [address] [place] [address] B, YAKOV Montero, [address], [facility] 11/28/2022 13:56:45 3 botulinum injection completed ENRIKE NORTON PA-C [address] [place] [address] B, YAKOV Montero, [address], [facility] 10/29/2022 10:47:52 3 botulinum injection completed ENRIKE NORTON PA-C [address] [place] [address] B, YAKOV Montero, [address], [facility] 10/01/2022 13:50:41 3 botulinum injection completed Imer Lieberman MD [address] [place] [address] B, YAKOV Montero, [phone], [facility] 08/14/2022 17:00:39 3 botulinum injection completed ENRIKE NORTON PA-C [address] [place] [address] B, YAKOV Montero, [address], [facility] 07/09/2022 14:05:58 2 botulinum injection completed Imer Lieberman MD [address] [place] [address] B, YAKOV Montero, [address], [facility] 05/16/2022 13:33:52 2 botulinum injection completed ENRIKE NORTON PA-C [address] [place] [address] B, YAKOV Montero, [address], [facility] 03/14/2022 14:10:23 2 botulinum injection completed Imer Lieberman MD [address] [place] [address] B, YAKOV Montero, [address], [facility] 02/13/2022 09:15:23 2 botulinum injection completed ENRIKE NORTON PA-C [address] [place] [address], YAKOV Montero, [address], [facility] 12/06/2021 13:50:32 2 botulinum injection completed Imer Lieberman MD [address] [place] [address] B, YAKOV Montero, [address], [facility] 11/07/2021 13:30:06 2 botulinum injection completed ENRIKE NORTON PA-C [address] [place] [address] B, YAKOV Montero, [address], [facility] 09/05/2021 14:12:15 2 botulinum injection completed Imer Lieberman MD [address] [place] [address], YAKOV Montero, [address], [facility] 07/25/2021 15:27:34 2 botulinum injection completed ENRIKE NORTON PA-C [address] [place] [address], YAKOV Montero, [address], [facility] 07/12/2021 08:55:03 1 botulinum injection completed ENRIKE NORTON PA-C [address] [place] [address] B, YAKOV Montero, [address], [facility] 05/29/2021 22:54:52 1 botulinum injection completed Imer Lieberman MD [address] [place] [address], YAKOV Montero, [address], [facility] 04/25/2021 14:30:46 1 botulinum injection completed Imer Lieberman MD [address] [place] [address], YAKOV Montero, [address], [facility] 01/24/2021 19:05:02 1 botulinum injection completed Imer Lieberman MD [address] [place] [address] B, YAKOV Montero, [address], [facility] 10/25/2020 18:09:08 Imaging Results None recorded. 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 Dystonia 01135915 G24.3 Facial spasm 90638318 G5 1.39 Migraine without aura 56 637590 G43.009 [id number] Imer Lieberman MD [facility] [address] [place] [address] JOSE RETANAYAKOV RICHARD [address]-495 4 01/24/2021 14:50:22 01/25/2021 08:16:40 Idiopathic non-familial dystonia 487228629 G24.1 Dystonia 15790925 G24.3 Facial spasm 24851737 G5 1.39 Migraine without aura 56 535809 G43.009 [id number] Imer Lieberman MD [facility] [address] [place] [address] JOSE RETANAYAKOV RICHARD [id number] 4 02/28/2021 11:51:24 02/28/2021 12:29:37 Idiopathic non-familial dystonia 166567101 G24.1 Dystonia 39540607 G24.3 Facial spasm 45780681 G5 1.39 Migraine without aura 56 975034 G43.009 [id number] Imer Lieberman MD [facility] [address] [place] [address] JOSE RETANAYAKOV RICHARD [address]-997 4 04/25/2021 12:22:14 04/26/2021 07:40:15 Idiopathic non-familial dystonia 503353726 G24.1 Dystonia 53873984 G24.3 Facial spasm 76369432 G5 1.39 Migraine without aura 56 714253 G43.009 [id number] Imer Lieberman MD [facility] [address] [place] [address] JOSE RETANAYAKOV RICHARD [id number] 4 05/29/2021 10:02:07 05/30/2021 15:05:44 Idiopathic non-familial dystonia 755968450 G24.1 Dystonia 47905822 G24.3 Facial spasm 75161485 G5 1.39 Migraine without aura 56 791371 G43.009 Migraine with aura 24804 06 G43.109 [id number] Imer Lieberman MD [facility] [address] [place] [address] Gordo MONTERO YAKOV [address]-441 4 07/12/2021 08:51:06 08/03/2021 15:14:49 Idiopathic non-familial dystonia 021347160 G24.1 Dystonia 63855837 G24.3 Facial spasm 28797528 G5 1.39 Migraine without aura 56 901233 G43.009 [id number] Imer Lieberman MD [facility] [address] [place] [address] Gordo MONTERO YAKOV [id number] 4 07/25/2021 13:52:53 07/25/2021 16:35:44 Idiopathic non-familial dystonia 467357142 G24.1 Dystonia 91783499 G24.3 Facial spasm 78353685 G5 1.39 Migraine without aura 56 351601 G43.009 [id number] Imer Lieberman MD [facility] [address] [place] [address] Gordo MONTEROYAKOV 51607-321 4 09/05/2021 14:01:17 09/10/2021 10:57:43 Idiopathic non-familial dystonia 111564729 G24.1 Dystonia 17821241 G24.3 Facial spasm 61749319 G5 1.39 Migraine without aura 56 068510 G43.009 [id number] Imer Lieberman MD [facility] [address] [place] [address] JOSE RETANAYAKOV RICHARD 99501-164 4 11/07/2021 12:25:50 11/07/2021 18:58:37 Idiopathic non-familial dystonia 757710348 G24.1 Dystonia 64310479 G24.3 Facial spasm 50966957 G5 1.39 Migraine without aura 56 446233 G43.009 [id number] Imer Lieberman MD [facility] [address] [place] [address] Gordo RETANAWINSTONYAKOV RICHARD 83605-596 4 12/06/2021 13:06:48 12/10/2021 15:27:19 Idiopathic non-familial dystonia 678869762 G24.1 Dystonia 01074613 G24.3 Facial spasm 98659481 G5 1.39 Migraine without aura 56 623488 G43.009 [id number] Imer Lieberman MD [facility] [address] [place] [address] Gordo YAKOV MONTERO [id number] 4 02/13/2022 07:56:35 02/13/2022 09:24:50 Idiopathic non-familial dystonia 190403060 G24.1 Dystonia 51448500 G24.3 Facial spasm 55961294 G5 1.39 Migraine without aura 56 974282 G43.009 [id number] Imer Lieberman MD [facility] [address] [place] [address] Gordo YAKOV MONTERO [id number] 4 03/14/2022 13:58:56 03/19/2022 09:35:39 Idiopathic non-familial dystonia 024820622 G24.1 Dystonia 01318952 G24.3 Facial spasm 07809428 G5 1.39 Migraine without aura 56 817710 G43.009 7012 Imer Lieberman MD [facility] [address] [place] [address] Gordo YAKOV MONTERO [id number] 4 05/16/2022 11:40:07 05/16/2022 15:55:55 Idiopathic non-familial dystonia 838739003 G24.1 Dystonia 96530672 G24.3 Facial spasm 23605848 G5 1.39 Migraine without aura 56 616465 G43.009 [id number] Imer Lieberman MD [facility] [address] [place] [address] Gordo YAKOV MONTERO [id number] 4 07/09/2022 13:59:24 07/25/2022 12:39:21 Idiopathic non-familial dystonia 349523030 G24.1 Dystonia 34517667 G24.3 Facial spasm 90580472 G5 1.39 Migraine without aura 56 913083 G43.009 Migraine with aura 02593 06 G43.109 7846 Imer Lieberman MD [facility] [address] [place] [address] Gordo YAKOV MONTERO [id number] 4 08/14/2022 15:04:31 08/14/2022 17:43:36 Idiopathic non-familial dystonia 586997389 G24.1 Dystonia 05620998 G24.3 Facial spasm 38710862 G5 1.39 Migraine without aura 56 433053 G43.009 [id number] ENRIKE NORTON PA-C [facility] [address] [place] [address] B YAKOV MONTERO [id number] 4 10/01/2022 13:45:47 10/03/2022 11:40:32 Idiopathic non-familial dystonia 555877412 G24.1 Dystonia 36167822 G24.3 Facial spasm 62050525 G5 1.39 Migraine without aura 56 662180 G43.009 Migraine with aura 80052 06 G43.109 [id number] Imer Lieberman MD [facility] [address] [place] [address] JOSE RETANAHILARY YAKOV [id number] 4 10/29/2022 10:18:41 11/04/2022 15:06:43 Idiopathic non-familial dystonia 054879141 G24.1 Dystonia 99302074 G24.3 Facial spasm 40779468 G5 1.39 Migraine without aura 56 723281 G43.009 Migraine with aura 80967 06 G43.109 9112 ENRIKE NORTON PA-C [facility] [address] [place] [address] JOSE RETANAYAKOV RICHARD [id number] 4 11/28/2022 13:27:59 12/02/2022 15:28:22 Idiopathic non-familial dystonia 836034313 G24.1 Dystonia 34245326 G24.3 Facial spasm 09671520 G5 1.39 Migraine without aura 56 687250 G43.009 Migraine with aura 58995 06 G43.109 [id number] Imer Lieberman MD [facility] [address] [place] [address] JOSE MONTERO YAKOV [id number] 4 12/19/2022 11:07:15 12/23/2022 16:34:25 Idiopathic non-familial dystonia 112310960 G24.1 Dystonia 00193960 G24.3 Facial spasm 80604043 G5 1.39 Migraine without aura 56 916722 G43.009 Migraine with aura 30431 06 G43.109 [id number] Imer Lieberman MD [facility] [address] [place] [address] JOSE Gordo RETANAWINSTONYAKOV RICHARD [id number] 4 01/23/2023 09:21:21 02/10/2023 16:21:14 Idiopathic non-familial dystonia 985790013 G24.1 Dystonia 73641932 G24.3 Facial spasm 81076185 G5 1.39 Migraine without aura 56 614452 G43.009 Migraine with aura 09452 06 G43.109 [id number] Imer Lieberman MD [facility] [address] [place] [address] Gordo MONTERO YAKOV [id number] 4 03/18/2023 10:30:58 03/19/2023 17:32:28 Idiopathic non-familial dystonia 686862265 G24.1 Dystonia 80592349 G24.3 Facial spasm 82146172 G5 1.39 Migraine without aura 56 859091 G43.009 Migraine with aura 80539 06 G43.109 [id number] ENRIKE NORTON PA-C [facility] [address] [place] [address] Gordo MONTERO YAKOV [id number] 4 04/24/2023 10:15:35 04/30/2023 10:38:58 Idiopathic non-familial dystonia 509681601 G24.1 Dystonia 09235426 G24.3 Facial spasm 00425216 G5 1.39 Migraine without aura 56 023208 G43.009 Migraine with aura 48486 06 G43.109 [id number] Imer Lieberman MD [facility] [address] [place] [address] Gordo RETANAWINSTON, YAKOV 98603-533 4 05/28/2023 09:14:15 05/29/2023 16:35:04 Idiopathic non-familial dystonia 434669252 G24.1 Dystonia 05493161 G24.3 Facial spasm 70355982 G5 1.39 Migraine without aura 56 129015 G43.009 Migraine with aura 61942 06 G43.109 [id number] Imer Lieberman MD [facility] [address] [place] [address] Gordo RETANAWINSTONYAKOV RICHARD [id number] 4 10/07/2023 09:31:55 10/13/2023 13:14:20 Idiopathic non-familial dystonia 122068552 G24.1 Dystonia 70332009 G24.3 Facial spasm 70850902 G5 1.39 Migraine without aura 56 789363 G43.009 Migraine with aura 74186 06 G43.109 [id number] Imer Lieberman MD [facility] [address] [place] [address] Gordo RETANAWINSTON, YAKOV [id number] 4 11/11/2023 10:36:51 11/11/2023 11:43:45 Idiopathic non-familial dystonia 694188898 G24.1 Dystonia 95043739 G24.3 Facial spasm 26939670 G5 1.39 Migraine without aura 56 442167 G43.009 Migraine with aura 38458 06 G43.109 [id number] Imer Lieberman MD [facility] [address] [place] [address] [place] [id number] 4 12/10/2023 11:11:30 12/10/2023 12:19:37 Idiopathic non-familial dystonia 294659358 G24.1 Dystonia 71807993 G24.3 Facial spasm 08675784 G5 1.39 Migraine without aura 56 623886 G43.009 Migraine with aura 18644 06 G43.109 [id number] Imer Lieberman MD [facility] [address] [place] [address] [place] [address] 4 03/23/2024 11:39:14 03/23/2024 17:16:47 Idiopathic non-familial dystonia 235005468 G24.1 Dystonia 34316718 G24.3 Facial spasm 81292551 G5 1.39 Migraine without aura 56 976179 G43.009 Migraine with aura 76453 06 G43.109 Health Concerns Section Related Observation LastModified by Organization Detai ls LastModified Time None Recorded Concern Status LastModified by Organization Details LastModified Time None Recorded Advance Directives Directive None Recorded Payers Encounter Date Sequence Insurance Name Policy Number Policy Leone Covered Member ID Leone Member ID Guarantor Name 05/28/2023 1 [facility] ([facility] [place] Ute Ashlyn [id number] Ute Ashlyn 10/07/2023 1 [facility] ([facility] [place] Ute Ashlyn [id number] Ute Ashlyn 11/11/2023 1 [facility] ([facility] [place] Ute Ashlyn [id number] Uet Ashlyn 12/10/2023 1 [facility] ([facility] [place] Ute Ashlyn [id number] Ute Ashlyn 03/23/2024 1 [facility] ([facility] [place] Ute Ashlyn [id number] Ute Ashlyn Notes Date Note Type Note [...] She is working with Andreina Greer APRN, [facility] comprehensive pain management center and will [...] but she has also been to her systems software developer/ophthalm ologist and had her glasses changed but [...] She came in later that day to milk pickup truck driver the Aimovig 70 mg/mL sample and ? [...] with psychiatry on this. Imer Lieberman MD [address] [place] [address] [place], [phone], [facility] 05/28/2023 13:26:47 10/07/2023 text/html Follow-up breakthrough [...] She is working with Andreina Greer APRN, [facility] comprehensive pain management center and will [...] but she has also been to her systems software developer/ophthalm ologist and had her glasses changed but [...] She came in later that day to milk pickup truck driver the Aimovig 70 mg/mL sample and ? [...] with psychiatry on this. Imer Lieberman MD [address] [place] [address] Winston Caro YAKOV, [phone], [facility] 10/13/2023 11:40:53 11/11/2023 text/html Follow-up of [...] She is working with Andreina Greer APRN, [facility] comprehensive pain management center and will [...] but she has also been to her systems software developer/ophthalm ologist and had her glasses changed but [...] She came in later that day to milk pickup truck driver the Aimovig 70 mg/mL sample and ? [...] with psychiatry on this. Imer Lieberman MD [address] [place] [address], [phone], [facility] 11/11/2023 11:32:39 12/10/2023 text/html Follow-up of [...] She is working with Andreina Greer APRN, [facility] comprehensive pain management center and will [...] but she has also been to her systems software developer/ophthalm ologist and had her glasses changed but [...] She came in later that day to milk pickup truck driver the Aimovig 70 mg/mL sample and ? [...] with psychiatry on this. Imer Lieberman MD [address] [place] [address] [place], [address], [facility] 12/10/2023 12:17:54 03/23/2024 text/html Follow-up of [...] She is working with Andreina Greer APRN, [facility] comprehensive pain management center and will [...] but she has also been to her systems software developer/ophthalm ologist and had her glasses changed but [...] She came in later that day to milk pickup truck driver the Aimovig 70 mg/mL sample and ? [...] with psychiatry on this. Imer Lieberman MD [address] [place] [address] [place], [phone], [facility] 03/23/2024 13:04:47 OBGyn Episode No OBEpisode recorded.
--- OUTSIDE RECORDS SUMMARY | 2024-08-06 08:59 | XMS_ITS | Encounter Summary ---
Author Organization [facility] Address [address] [facility] [address] [place] [address] Care Team Providers Care Post Closer Name Role Phone Unavailable Primary Care Provider Unavailabl e Encounter Details Date Type Department Care Team (Latest Contact Info) Description 05/17/2021 Abstract [facility] CONVERSIONS Dental, Provider, DDS Social History Tobacco [...]
--- OUTSIDE RECORDS SUMMARY | 2024-08-06 08:59 | XMS_ITS | Clinical Summary ---
Author Organization [employer] Address [address] [place] [address] Care Team Providers Care Licensed Master Social Worker Name Role Phone Unavailable Primary Care Provider [...]
--- OUTSIDE RECORDS SUMMARY | 2024-08-06 08:59 | XMS_ITS | Clinical Summary ---
Author Organization [facility], Address [address] [place] [address] [place] [address] Phone Care Team Providers Care Trust Evaluation Supervisor Name Role Phone Villa Lr MD Primary Care Provider +1- [phone] Allergies No known active allergies Medications clonazePAM [...] D BEFORE MEALS DIRECTED. 1 Active Creon [id number] units capsule TOME 1 C PSULA POR [...] Visit [facility], [address] [phone] Abdulkadir Osorio MD [address] [place] [id number] Health Maintenance Due Date Last Done Comments [...] Glucose 105(H) 70 - 99 mg/dL [facility] Uric Acid 3.8 2.6 - 6.2 mg/dL [facility] Comment:Therapeutic target f or gout patients: <6.0 BUN 11 6 - 24 mg/dL [facility] Creatinine 0.58 0.57 - 1.00 mg/dL [facility] eGFR CKD-EPI CR 2020 112 >59 mL/min/1.7 3 [facility] BUN/Creatinine Ratio 19 9 - 23 [facility] Sodium 139 134 - 144 mmol/L [facility] Potassium 4.3 3.5 - 5.2 mmol/L [facility] Chloride 103 96 - 106 mmol/L [facility] Bicarbonate (CO2) 22 20 - 29 mmol/L [facility] Anion Gap 14.0 10.0 - 18.0 mmol/L [facility] Calcium 9.9 8.7 - 10.2 mg/dL [facility] Total Protein 6.6 6.0 - 8.5 g/dL [facility] Albumin 4.2 3.9 - 4.9 g/dL [facility] Globulin 2.4 1.5 - 4.5 g/dL [facility] Phosphorus 3.4 3.0 - 4.3 mg/dL [facility] 07/05/2024 11:4 4 AM EST 07/05/2024 us Abdulkadir Osorio MD LAB [id number] OLICITED RESULTS Final Result [facility] [address] [place] [address] * Microscopic Examination (07/05/2024 11:44 AM EST) WBC, Urine None seen 0 - 5 /hpf [facility] RBC, Urine None seen 0 - 2 /hpf [facility] Squamous Epithelial, Urine 0-10 0 - 10 /hpf [facility] Casts None seen None seen /lpf [facility] Bacteria, Urine None seen None seen/Few [facility] 07/05/2024 11:4 4 AM EST 07/05/2024 Abdulkadir Osorio MD LAB MICROBIOLOGY - GENERAL ORD ERABLES Final Result [facility] [address] [place] [address] * (ABNORMAL) Iron Panel (Fe, TIBC, TSAT) (07/05/2024 11:44 AM EST) Pathologist [facility] TIBC 385 250 - 450 ug/dL [facility] UIBC 348 131 - 425 ug/dL [facility] Iron 37 27 - 159 ug/dL [facility] Iron Saturation (TSat) 10(L) 15 - 55 % [facility] 07/05/2024 11:4 4 AM EST 07/05/2024 us Abdulkadir Osorio MD LAB BLOOD ORDERABLES Final Res ult [facility] [address] [place] [address] * Urine Albumin / Creatinine Ratio (07/05/2024 11:44 AM EST) Creatinine, Ur 55.2 Not Estab. mg/dL [facility] Urine Microalbumin <3.0 Not Estab. ug/mL [facility] Microalbumin/Crea tinine Ratio <5 0 - 29 mg/g creat [facility] Comment: ? Normal: ?0 - ??29 ? Moderately increased: 30 - 300 ? Severely increased: ? >300 07/05/2024 11:4 4 AM EST 07/05/2024 us Abdulkadir Osorio MD LAB URINE ORDERABLES Final Res ult [facility] [address] [place] [address] * Vitamin D 25 Hydroxy (07/05/2024 11:44 AM EST) Vitamin D, 25-OH, Total 30.0 30.0 - 100.0 ng/mL [facility] Comment: Vitamin D deficiency has been defined by the [place] [employer] and an Endocrine Society practice guideline as a level of serum 25-OH vitamin D less than 20 ng/mL (1,2). The Endocrine Society went on to further define vitamin D insufficiency as a level between 21 and 29 ng/mL (2). 1. IOM ([place] [employer]). 2010. Dietary reference ?? intakes for calcium and D. [place]: The ?? National Status4 Press. 2. Levy MF, Roslyn [place], Ousmane OCAMPO, et al. ?? Evaluation, treatment, and prevention of vitamin D ?? deficiency: an Endocrine Society clinical practice ?? guideline. JCEM. 2010; 96(7):1911-30. 07/05/2024 11:4 4 AM EST 07/05/2024 us Abdulkadir Osorio MD LAB BLOOD ORDERABLES Final Res ult [facility] [address] [place] [address] * (ABNORMAL) Urinalysis with microscopic (07/05/2024 11:44 AM EST) Specific [place], Urine 1.011 1.005 - 1.030 [facility] pH Urine 8.0(H) 5.0 - 7.5 [facility] Color, Urine Yellow Yellow [facility] Appearance Urine Clear Clear [facility] WBC Esterase Urine Negative Negative [facility] Protein, Ur Negative Negative/Tra ce [facility] [phone] Glucose, Ur Negative Negative [facility] Ketones, Urine Negative Negative [facility] Blood Urine Negative Negative [facility] Bilirubin Urine Negative Negative [facility] Urobilinogen Urine 0.2 0.2 - 1.0 mg/dL [facility] [phone] Nitrite, Urine Negative Negative [facility] Microscopic Examination Comment [facility] [phone] Comment:Microscopic follows if indicated. Other Microsc. Observations See below: [facility] Comment:Microscopic was casper cated and was performed. 07/05/2024 11:4 4 AM EST 07/05/2024 us Abdulkadir Osorio MD LAB URINE ORDERABLES Final Res ult [facility] [address] [place] [address] * (ABNORMAL) CBC and Differential (07/05/2024 11:44 AM EST) WBC 7.6 3.4 - 10.8 x10E3/uL [facility] RBC 4.00 3.77 - 5.28 x10E6/uL [facility] Hemoglobin 11.7 11.1 - 15.9 g/dL [facility] Hematocrit 38.1 34.0 - 46.6 % [facility] MCV 95 79 - 97 fL [facility] MCH 29.3 26.6 - 33.0 pg [facility] MCHC 30.7(L) 31.5 - 35.7 g/dL [facility] RDW 13.1 11.7 - 15.4 % [facility] Platelets 284 150 - 450 x10E3/uL [facility] Neutrophils Relative 61 Not Estab. % [facility] Lymphocytes Relative 30 Not Estab. % [facility] Monocytes 8 Not Estab. % [facility] Eosinophils Relative 1 Not Estab. % [facility] Basophils Relative 0 Not Estab. % [facility] Neutrophils Absolute 4.6 1.4 - 7.0 x10E3/uL [facility] Lymphocytes Absolute 2.3 0.7 - 3.1 x10E3/uL [facility] Monocytes Absolute 0.6 0.1 - 0.9 x10E3/uL [facility] Eosinophils Absolute 0.1 0.0 - 0.4 x10E3/uL [facility] Basophils Absolute 0.0 0.0 - 0.2 x10E3/uL [facility] Immature Granulocytes 0 Not Estab. % [facility] Immature Grans (Absolute) 0.0 0.0 - 0.1 x10E3/uL [facility] 07/05/2024 11:4 4 AM EST 07/05/2024 us Abdulkadir Osorio MD LAB BLOOD ORDERABLES Final Res ult Performing Organization Address City/[facility]/ZIP Co de Phone Number [facility] [address] [place] [address] * PTH, Intact (07/05/2024 11:44 AM EST) PTH 20 15 - 65 pg/mL [facility] 07/05/2024 11:4 4 AM EST 07/05/2024 us Abdulkadir Osorio MD LAB BLOOD ORDERABLES Final Res ult Performing Organization Address City/[facility]/ZIP Co de Phone Number [facility] [address] [place] [address] * Magnesium (07/05/2024 11:44 AM EST) Magnesium 1.9 1.6 - 2.3 mg/dL [facility] 07/05/2024 11:4 4 AM EST 07/05/2024 us Abdulkadir Osorio MD LAB BLOOD ORDERABLES Final Res ult Performing Organization Address City/[facility] de Phone Number [facility] [address] [place] [address] * (ABNORMAL) Hemoglobin A1c (07/05/2024 11:44 AM EST) Hemoglobin A1C 7.4(H) 4.8 - 5.6 % [facility] Comment: ? Prediabetes: 5.7 - 6.4 ? Diabetes: >6.4 ? Glycemic control for adults with diabetes: <7.0 07/05/2024 11:4 4 AM EST 07/05/2024 Abdulkadir Osorio MD LAB BLOOD ORDERABLES Final Res ult Performing Organization Address [facility] Co de Phone Number [facility] [address] [place] [address] * (ABNORMAL) Ferritin (07/05/2024 11:44 AM EST) Ferritin 11(L) 15 - 150 ng/mL [facility] 07/05/2024 11:4 4 AM EST 07/05/2024 Abdulkadir Osorio MD LAB BLOOD ORDERABLES Final Res ult Performing Organization Address [facility] Co de Phone Number [facility] [address] [place] [address] from Last 3 Months Insurance [address] [place] [id number] [place] [address] [employer] Care Teams Trust Evaluation Supervisor Relationship Specialty Start Date End Date Villa Lr MD [address] [place] [address] PCP - General 05/04/19
--- OUTSIDE RECORDS SUMMARY | 2024-08-06 08:59 | XMS_ITS | Encounter Summary ---
Author Organization [facility], Address [address] [place] [address] Phone Care Team Providers Care It Technical Specialist Name Role Phone Villa Lr MD Primary Care Provider +1- [phone] Encounter Details Date Type Department Care Team (Late st Contact Info) Description 06/10/2022 Documentation Only [facility], [address] [place] [address] Abdulkadir Osorio MD [address] [place] [address] [place] [address] Social History Tobacco Use Types [...] Visit [facility] [address] [place] [address] Abdulkadir Osorio MD [address] [place] [address] documented as of this encounter Visit Diagnoses Not on filedocumented in this encounter Care Teams It Technical Specialist Relationship Specialty Start Date End Date Villa Lr MD [address] [place] [address] PCP - General 05/04/19 documented as of this encounter
--- OUTSIDE RECORDS SUMMARY | 2024-08-06 08:59 | XMS_ITS | Encounter Summary ---
Author Organization [facility], Address [address] [place] [address] Phone Care Team Providers Care Honeycomb Decapper Name Role Phone Villa Lr MD Primary Care Provider +1- [phone] Encounter Details Date Type Department Care Team (Late st Contact Info) Description 06/16/2023 Documentation Only [facility], [address] [place] [address] Abdulkadir Osorio MD [address] [place] [address] [place] [address] Social History Tobacco Use Types [...] Visit [facility] [address] [place] [address] Abdulkadir Osorio MD [address] [place] [address] documented as of this encounter Visit Diagnoses Not on filedocumented in this encounter Care Teams Honeycomb Decapper Relationship Specialty Start Date End Date Villa Lr MD [address] [place] [address] PCP - General 05/04/19 documented as of this encounter
== END | disposition home or self-care (01) ==
CPT/HCPCS: 99024

== ENCOUNTER → 2024-08-06 08:34 | Outpatient (BNVA) | payer OTHER, SELFPAY | PROVIDERS: PCP Internal Medicine; Visit Provider Surgery | DX: N60.82 Other benign mammary dysplasias of left breast (principal) | CPT/HCPCS: 99212 ==

== ENCOUNTER 2024-08-26 10:38 | Outpatient (AMB) | payer OTHER, SELFPAY ==
[2024-08-26 11:00] VITALS: BP 104/70; PULSE 68; O2SAT 98; BMI 39.5
--- NOTE | 2024-08-26 11:00 | A.OFFVIS_ITS ---
Vital Signs 08/26/24 11:00 Height 5 ft 4 in Weight 230 lb 6.129 oz BMI 39.5 BP 104/70 Blood Pressure Location Lt brachial Position Sitting Pulse 68 Pulse Source Pulse Oximeter Pulse Oximetry (%) 98 Oxygen Delivery Method Room Air Intake Visit Reasons: Dyspnea Intake Note: pt is here for follow up and states she feels good, Science Manager Required: Yes Science Manager Services: Science Manager Present Science Manager Name: [id number] Allergies meclizine Adverse Reaction (Verified 08/26/24 11:09) tachycardia metoclopramide Adverse Reaction (Verified 08/26/24 11:09) tachycardia Medication List - Last Reconciled 08/26/24 by Nasreen Bella MD acetaminophen 500 mg PO Q6H PRN [ADULT PULL UPS As directed] albuterol sulfate 90 mcg/actuation (Ventolin HFA) 2 puffs inhalation QID PRN alum-mag hydroxide-simeth 400-400-40 mg/5 mL (Mylanta Maximum Strength) 10 mL PO TID PRN amitriptyline 75 mg PO DAILY atorvastatin 20 mg PO BEDTIME 90 days baclofen 10 mg PO BID PRN 30 days blood sugar diagnostic (FreeStyle Lite Strips) TEST BLOOD SUGAR DIRECTED 3 TIMES A DAY budesonide 32 mcg/actuation 2 sprays intranasal DAILY PRN cane As directed cholecalciferol (vitamin D3) 50 mcg PO DAILY 90 days clonazepam 1 mg PO TID diaper,brief,adult,disposable (Depend Easy Fit Undergarments misc) As directed dicyclomine 20 mg PO BID erenumab-aooe (Aimovig Autoinjector) 140 mg subcut [id number] esomeprazole magnesium 40 mg PO DAILY [FREESTYLE LITE TEST STRIPS Test blood sugar as directed 3 times a day - E11.9 -- DIABETES] FreeStyle Lite Meter (blood-glucose meter) As directed NS fremanezumab-vfrm (Ajovy) mg subcut gabapentin 300 mg PO BEDTIME lancets (FreeStyle Lancets) As directed- 3 times a day linaclotide (Linzess) 290 mcg PO QAM liraglutide (Victoza 3-Sahmir) 1.2 mg (0.2 mL) subcut DAILY melatonin 6 mg PO BEDTIME metformin 1,000 mg PO BID 90 days methylcellulose (laxative) (Fiber Therapy (methylcellulose)) 500 mg PO BID montelukast 10 mg PO BEDTIME 90 days ondansetron 4 mg sublingual TID pen needle, diabetic (Comfort EZ Pen [place]) As directed daily pioglitazone 45 mg PO DAILY propranolol 60 mg PO BID sennosides (senna) 17.2 mg (2 x 8.6 mg) PO BEDTIME PRN sertraline 50 mg PO DAILY simethicone 180 mg PO TID terconazole 0.8% 1 appful vaginal BEDTIME 3 days topiramate 100 mg PO BID tramadol 50 mg PO TID PRN 30 days triamcinolone acetonide 1 spray intranasal DAILY ubrogepant (Ubrelvy) 100 mg PO DAILY PRN ziprasidone HCl (Geodon) 80 mg PO BID Do you need a note to return to daycare/school/sports/work: No HPI HPI Dyspnea: Details: THIS 48 YEARS OLD KHMER-SPEAKING VERY PLEASANT LADY IS HERE FOR HER FOLLOW-UP AFTER 6 MONTHS. SHE HAS A CASE OF CHRONIC ALLERGIC RHINITIS AND MILD BRONCHIAL ASTHMA. ,HAS BEEN WELL CONTROLLED WITH THE USE OF BUDESONIDE NASAL SPRAY AND ALBUTEROL INHALER NEEDED. LUCKILY SHE HAS HAD NO ACUTE FLARE UP IN THE LAST 6 MONTHS. SHE HAS ALSO GROSSLY OVERWEIGHT WITH BMI OF 39.5, AND IS KNOWN CASE OF OBSTRUCTIVE SLEEP APNEA. SHE HAS BEEN TREATED WITH CPAP THERAPY AND REMAINED VERY COMPLIANT. HER CPAP MANAGEMENT IS DONE BY HER NEUROLOGIST. [facility] Medical History Overactive bladder Diarrhea Morbid obesity with BMI of 40.0-44.9, adult Biliary dyskinesia Elevated TSH Obesity (BMI 30-39.9) Depression Anxiety Insomnia Obstructive sleep apnea Vitamin D deficiency 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 myelopathy or radiculopathy Elevated LFTs Allergic rhinitis Asthma Migraine Pure hypercholesterolemia Benign essential hypertension Diabetes mellitus IBS (irritable bowel syndrome) Gastroparesis Surgical History History of surgical removal of skin lesion (07/26/24) Status post epidural steroid injection History of cardiac cath Hx of tubal ligation Hx of colonoscopy (~03/2018) Hx of endoscopy History of surgery of head Hx of hysterectomy (~08/2011) Family History Father Diabetes Hypertension Heart problem Mother Arthritis Diabetes Hypertension Maternal Grandmother Breast cancer, Onset Age: 72 Family/Other Diabetes Hypertension Heart problem Social History Household Members: Spouse Housing: House Are you a primary career and transition teacher to a significant other at home: No Do you presently have visiting nurse or other home services: No Alcohol intake: current Alcohol intake frequency: former alcohol drinker Comment: NOT INDICATED Patient Tobacco Use Status: Never used Tobacco e-Cigarette/Vaping Use: Never Used Second Hand Smoke Exposure: No Advance Directives Date on File: 03/20/16 service: No Current occupational status: disabled Cognitive needs: No Hearing needs: No Vision needs: Yes Female Reproductive History Menstrual Age of Menarche: 13 Review of Systems Const All systems reviewed & are unremarkable except as noted in HPI and below Reports headache(s) Eyes Reports no additional complaints ENT Reports no additional complaints and Reports headache(s) Card Denies irregular heart rhythm, Denies leg edema and Reports dyspnea on exertion Resp Reports as per HPI and Reports dyspnea on exertion GI Reports no additional complaints Reports no additional complaints Musc Reports back pain, Reports myalgias and Reports arthralgias Skin/Breast Reports system reviewed and no additional complaints, except as documented Neuro Reports headache(s) Psych Reports anxiety and Reports depression Endo Reports other (DIABETES MELLITUS) Sohail/Lymph Reports no additional complaints Aller/Immun Reports no additional complaints Physical Exam PATIENT IS MORBIDLY OBESE WITH A ROUND FACE AND SHORT NECK AND NARROW OROPHARYNX Const General: comfortable, no acute distress, alert and awake Orientation/consciousness: patient oriented x3 HEENT Head: Yes normal to inspection General nose exam: No nasal polyps present and No nasal discharge present Face and sinus: Yes sinuses nontender Mouth: oropharynx normal Throat: Yes posterior oropharynx normal Eyes General: appearance normal, both eyes and all related structures Neck Neck: Yes normal visual inspection, Yes no lymphadenopathy, Yes trachea midline and Yes no JVD Thyroid: Thyroid normal Chest Chest palpation & inspection: normal inspection of the chest, normal palpation of entire chest wall and no tenderness Resp Other: PERCUSSION NOTE IS NOT WELL PERCEPTIBLE BECAUSE OF THE THICK CHEST WALL. BREATH SOUNDS ARE SLIGHTLY DISTANT BUT LUNGS ARE CLEAR WITHOUT ANY WHEEZING OR CREPITATIONS Cardio Palpation: normal PMI Rate: regular rate Rhythm: regular rhythm Heart sounds: no gallops and no murmurs GI Palpation (GI): Soft to palpation, nontender, No hepatosplenomegaly present and no masses Auscultation: normal bowel sounds Back/Spine/Pelvis Thoracic/Lumbar Spine: thoracic and lumbar spine normal to inspection and thoraco-lumbar ROM limited Skin General skin exam: no rashes or lesions noted Neuro General: patient oriented x3 and no focal motor deficits Cranial nerves: Yes CN's II-XII intact bilaterally Extrem General: Yes normal to inspection, Yes no clubbing, cyanosis or edema and Yes no calf tenderness Psych Speech and movement: Normal speech and movement present Assessment & Plan Assessment & Plan (1) Asthma: Comment: SHE CONTINUES TO COMPLAIN OF MINIMAL SHORTNESS OF BREATH ON WALKING, BUT NO WHEEZING. PULMONARY FUNCTION TEST IN 2022 WAS ESSENTIALLY NORMAL. SHE MAY STILL HAVE MILD INTERMITTENT BRONCHIAL ASTHMA. I THINK SHORTNESS OF BREATH ON EXERTION IS RELATED TO HER MORBID OBESITY. Code(s): J45.909 - Unspecified asthma, uncomplicated Category: Medical Qualifiers: Asthma severity: moderate Asthma persistence: persistent Asthma complication type: uncomplicated Qualified Code(s): J45.40 - Moderate persistent asthma, uncomplicated Plan: OK TO USE ALBUTEROL HFA 2 PUFFS Q 6 HOURS ONLY P.R.N. (2) Allergic rhinitis: Comment: SYMPTOMS OF CHRONIC ALLERGIC RHINITIS SEEM TO BE UNDER CONTROL . Code(s): J30.9 - Allergic rhinitis, unspecified Category: Medical Qualifiers: Allergic rhinitis trigger: unspecified Allergic rhinitis seasonality: unspecified Qualified Code(s): J30.9 - Allergic rhinitis, unspecified Plan: CONTINUE TO USE BUDESONIDE 32 MCG PER ACTUATION 2 SPRAY IN EACH NOSTRIL DAILY (3) Obstructive sleep apnea: Comment: THIS PATIENT IS KNOWN TO HAVE OBSTRUCTIVE SLEEP APNEA SINCE 2019 HAS BEEN USING CPAP REGULARLY. SHE IS BEING FOLLOWED BY AND MANAGED FOR SLEEP APNEA BY HER NEUROLOGIST. CLAIMS THAT SHE DOES USE THE CPAP EVERY NIGHT, AND SLEEPS WELL. Code(s): G47.33 - Obstructive sleep apnea (adult) (pediatric) Category: Medical Plan: CONTINUE USING. CPAP REGULARLY DOES NEED TO LOSE SOME WEIGHT. Coding Level of Care Code Est Pt Level 3 (27976) Diagnoses Moderate persistent asthma without complication J45.40 Asthma severity: moderate Asthma persistence: persistent Asthma complication type: uncomplicated Allergic rhinitis, unspecified seasonality, unspecified trigger J30.9 Allergic rhinitis trigger: unspecified Allergic rhinitis seasonality: unspecified Obstructive sleep apnea G47.33
--- OUTSIDE RECORDS SUMMARY | 2024-08-26 12:38 | XMS_ITS | Data Portability ---
Author Organization [facility] [employer], [employer] Address [address] [place] [address] Care Team Providers Care Purchasing Agent Name Role Phone LATIA RASHID Referring Provider [phone] LATIA RASHID Primary Care Provider [phone] Assessment Encounter Date Assessment Date Assessment LastModified [...] today, I reviewed the propranolol prescription in [place] and noted that she had a [...] with April 2023 confirmation of medications from [facility]) -From [facility]: propranolol 60 mg twice daily topiramate 100 mg twice daily, Aimovig 140 mg/mL monthly autoinjector and Ubrelvy 100 mg as needed for breakthrough migraine from [facility] (she was also concurrently on rizatriptan [...] with April 2023 confirmation of medications from [facility]) -From [facility]: propranolol 60 mg twice daily topiramate 100 mg twice daily, Aimovig 140 mg/mL monthly autoinjector and Ubrelvy 100 mg as needed for breakthrough migraine from [facility] (she was also concurrently on rizatriptan [...] la versi? ? ?n gratuita del traductor [email or web address] (with edits by me) -Continue propranolol 60mg [...] with April 2023 confirmation of medications from [facility]) -From [facility]: propranolol 60 mg twice daily topiramate 100 mg twice daily, Aimovig 140 mg/mL monthly autoinjector and Ubrelvy 100 mg as needed for breakthrough migraine from [facility] (she was also concurrently on rizatriptan [...] extra dose in her refrigerator and to parts picker the new prescription when it gets. [...] with April 2023 confirmation of medications from [facility]) -From [facility]: propranolol 60 mg twice daily topiramate 100 mg twice daily, Aimovig 140 mg/mL monthly autoinjector and Ubrelvy 100 mg as needed for breakthrough migraine from [facility] (she was also concurrently on rizatriptan [...] extra dose in her refrigerator and to parts picker the new prescription when it gets. [...] with April 2023 confirmation of medications from [facility]) -From [facility]: propranolol 60 mg twice daily topiramate 100 mg twice daily, Aimovig 140 mg/mL monthly autoinjector and Ubrelvy 100 mg as needed for breakthrough migraine from [facility] (she was also concurrently on rizatriptan [...] Details Appointments FOLLOW UP EXT 2024 12:00P M Imer Lieberman MD PhD Not available Not available Not available Lab None recorded. Referral None recorded. Procedures None recorded. Surgeries None recorded. Imaging None recorded. Medication Orders Ajovy 225 mg/1.5 mL subcutane ous auto-inje ctor 2023 024 [id number] [address] [place], [address], 03/23/2024 12:47:06 Ubrelvy 100 mg tablet 2023 024 [id number] [address] [place], [address], 03/23/2024 12:47:07 Ajovy 225 mg/1.5 mL subcutane ous auto-inje ctor 2023 [facility]24 [id number] [address] [place], [address], 12/10/2023 12:17:38 propranol ol 60 mg tablet 2023 024 [id number] [address] [place], [address], 11/11/2023 11:21:02 topiramat e 50 mg tablet 2023 024 [id number] [address] [place], [address], 11/11/2023 11:21:03 Aimovig Autoinjec tor 140 mg/mL subcutane ous auto-inje ctor 2023 024 [id number] [address] [place], [address], 03/23/2024 12:59:57 Ubrelvy 100 mg tablet 2023 024 [id number], [address] [place], [address], 11/11/2023 11:21:02 topiramat e 100 mg tablet 2023 024 [id number], [address] [place], [address], 10/07/2023 10:22:21 propranol ol 60 mg tablet 2023 024 [id number], [address] [place], [address], 10/07/2023 10:22:21 Aimovig Autoinjec tor 140 mg/mL subcutane ous auto-inje ctor 2023 024 [id number] [address] [place], [address], 03/23/2024 12:59:57 Ubrelvy 100 mg tablet 2023 024 [id number], [address] [place], [address], 10/07/2023 10:22:21 topiramat e 100 mg tablet 2022 023 [id number], [address] [place], [address], 05/28/2023 09:56:01 propranol ol 60 mg tablet 2022 023 [id number], [address] [place], [address], 05/28/2023 09:56:01 Aimovig Autoinjec tor 140 mg/mL subcutane ous auto-inje ctor 2022 023 [id number] [address] [place], [address], 03/23/2024 12:59:57 Ubrelvy 100 mg tablet 2022 023 [id number], [address] [facility], [place], [address], 05/28/2023 09:56:01 Patient TargetsNo targets recorded. Patient Instructions Encounter Date Encounter Id Patient Instructions Last Modified By Organization Details Last Modified Time 05/28/2023 [id number] Her is a former ipaef-lr-fndgu long-sand hauler PREVIOUS MEDICATIONS Rizatriptan disallowed by your insurance [...] not discuss the addition of rizatriptan through [employer] which we have discussed previously as she [...] over the potential side effects. She will parts picker a sample today. She will follow-up [...] minutes leon Not available 05/28/2023 10:35:59 10/07/2023 [id number] Her is a former hlgqq-dn-uocoq long-sand hauler PREVIOUS MEDICATIONS Rizatriptan disallowed by your insurance [...] today, I reviewed the propranolol prescription in [place] and noted that she had a [...] not discuss the addition of rizatriptan through [employer] which we have discussed previously as she [...] over the potential side effects. She will parts picker a sample today. She will follow-up [...] minutes [email or web address] Not available 10/13/2023 06:18:09 11/11/2023 [id number] Her is a former jdvdd-nf-pzkje long-sand hauler PREVIOUS MEDICATIONS daily April 2023, reduced from [...] today, I reviewed the propranolol prescription in [place] and noted that she had a [...] not discuss the addition of rizatriptan through [employer] which we have discussed previously as she [...] over the potential side effects. She will parts picker a sample today. She will follow-up [...] management cyndy Not available 11/11/2023 11:32:14 12/10/2023 [id number] Her is a former lypeo-sh-wmwza long-sand hauler PREVIOUS MEDICATIONS daily April 2023, reduced from [...] today, I reviewed the propranolol prescription in [place] and noted that she had a [...] not discuss the addition of rizatriptan through [employer] which we have discussed previously as she [...] over the potential side effects. She will parts picker a sample today. She will follow-up [...] management cyndy Not available 12/10/2023 11:56:12 03/23/2024 [id number] Her is a former yuirf-hi-ynwee long-sand hauler PREVIOUS MEDICATIONS Amitriptyline 75 mg, February 2024 [...] today, I reviewed the propranolol prescription in [place] and noted that she had a [...] every day. She was running out of [facility] for breakthrough migraine reported October 01, 2022. [...] not discuss the addition of rizatriptan through [employer] which we have discussed previously as she [...] over the potential side effects. She will parts picker a sample today. 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 Procedures Surgical History Date Name Laterality Status Provider Name and Address Organization Details Recorded Time 4 botulinum injection completed Imer Lieberman MD [address] [place], [place] [address], [address], [facility] 03/23/2024 12:37:46 4 botulinum injection completed Imer Lieberman MD [address] [place], [place] [address], [address], [facility] 12/10/2023 11:56:10 4 botulinum injection completed Imer Lieberman MD [address] [place], [place] [address], [address], [facility] 11/11/2023 11:10:22 4 botulinum injection completed ENRIKE NORTON PA-C [address] [place], [place] [address], [address], [facility] 10/07/2023 10:03:49 3 botulinum injection completed ENRIKE NORTON PA-C [address] [place], [place] [address], [address], [facility] 05/28/2023 09:39:33 3 botulinum injection completed ENRIKE NORTON PA-C [address] [place], [place] [address], [address], [facility] 04/24/2023 10:42:13 3 botulinum injection completed ENRIKE NORTON PA-C [address] [place], [place] [address], [address], [facility] 03/18/2023 10:47:21 3 botulinum injection completed ENRIKE NORTON PA-C [address] [place], [place] [address], [address], [facility] 01/23/2023 09:59:39 3 botulinum injection completed ENRIKE NORTON PA-C [address] [place] [address] B, YAKOV Montero, [address], [facility] 12/19/2022 11:33:40 3 botulinum injection completed ENRIKE NORTON PA-C [address] [place] [address] B, YAKOV Montero, [address], [facility] 11/28/2022 13:56:45 3 botulinum injection completed ENRIKE NORTON PA-C [address] [place] [address] B, YAKOV Montero, [address], [facility] 10/29/2022 10:47:52 3 botulinum injection completed ENRIKE NORTON PA-C [address] [place] [address] B, YAKOV Montero, [address], [facility] 10/01/2022 13:50:41 3 botulinum injection completed Imer Lieberman MD [address] [place] [address] B, YAKOV Montero, [address], [facility] 08/14/2022 17:00:39 3 botulinum injection completed ENRIKE NORTON PA-C [address] [place] [address] B, YAKOV Montero, [address], [facility] 07/09/2022 14:05:58 2 botulinum injection completed Imer Lieberman MD [address] [place] [address] B, YAKOV Montero, [address], [facility] 05/16/2022 13:33:52 2 botulinum injection completed ENRIKE NORTON PA-C [address] [place] [address] B, YAKOV Montero, [address], [facility] 03/14/2022 14:10:23 2 botulinum injection completed Imer Lieberman MD [address] [place] [address] B, YAKOV Montero, [address], [facility] 02/13/2022 09:15:23 2 botulinum injection completed ENRIKE NORTON PA-C [address] [place] [address], YAKOV Montero, [address], [facility] 12/06/2021 13:50:32 2 botulinum injection completed Imer Lieberman MD [address] [place] [address] B, YAKOV Montero, [address], [facility] 11/07/2021 13:30:06 2 botulinum injection completed ENRIKE NORTON PA-C [address] [place] [address] B, YAKOV Montero, [address], [facility] 09/05/2021 14:12:15 2 botulinum injection completed Imer Lieberman MD [address] [place] [address], YAKOV Montero, [address], [facility] 07/25/2021 15:27:34 2 botulinum injection completed ENRIKE NORTON PA-C [address] [place] [address], YAKOV Montero, [address], [facility] 07/12/2021 08:55:03 1 botulinum injection completed ENRIKE NORTON PA-C [address] [place] [address] B, YAKOV Montero, [address], [facility] 05/29/2021 22:54:52 1 botulinum injection completed Imer Lieberman MD [address] [place] [address], YAKOV Montero, [address], [facility] 04/25/2021 14:30:46 1 botulinum injection completed Imer Lieberman MD [address] [place] [address], YAKOV Montero, [address], [facility] 01/24/2021 19:05:02 1 botulinum injection completed Imer Lieberman MD [address] [place] [address] B, YAKOV Montero, [address], [facility] 10/25/2020 18:09:08 Imaging Results None [...] Code Diagnosis Note [id number] Imer Lieberman MD [facility] [address] [place] [address] JOSE MONTERO YAKOV [address] 4 10/25/2020 14:51:37 10/30/2020 14:49:52 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 Dystonia 04027482 G24.3 Facial spasm 61942917 G5 1.39 Migraine without aura 56 776793 G43.009 [id number] Imer Lieberman MD [facility] [address] [place] [address] JOSE RETANAYAKOV RICHARD [address]-624 4 01/24/2021 14:50:22 01/25/2021 08:16:40 Idiopathic non-familial dystonia 532149385 G24.1 Dystonia 10837434 G24.3 Facial spasm 58453425 G5 1.39 Migraine without aura 56 443194 G43.009 [id number] Imer Lieberman MD [facility] [address] [place] [address] JOSE RETANAYAKOV RICHARD [address]-533 4 02/28/2021 11:51:24 02/28/2021 12:29:37 Idiopathic non-familial dystonia 542714421 G24.1 Dystonia 74456676 G24.3 Facial spasm 83575288 G5 1.39 Migraine without aura 56 085924 G43.009 [id number] Imer Lieberman MD [facility] [address] [place] [address] JOSE RETANAYAKOV RICHARD [address]-660 4 04/25/2021 12:22:14 04/26/2021 07:40:15 Idiopathic non-familial dystonia 854618396 G24.1 Dystonia 21560167 G24.3 Facial spasm 48225856 G5 1.39 Migraine without aura 56 952099 G43.009 [id number] Imer Liebemran MD [facility] [address] [place] [address] JOSE RETANAYAKOV RICHARD 95843-263 4 05/29/2021 10:02:07 05/30/2021 15:05:44 Idiopathic non-familial dystonia 444788979 G24.1 Dystonia 93102736 G24.3 Facial spasm 84408975 G5 1.39 Migraine without aura 56 384542 G43.009 Migraine with aura 91148 06 G43.109 [id number] Imer Lieberman MD [facility] [address] [place] [address] Gordo MONTERO YAKOV [address]-925 4 07/12/2021 08:51:06 08/03/2021 15:14:49 Idiopathic non-familial dystonia 665595737 G24.1 Dystonia 44495169 G24.3 Facial spasm 12192232 G5 1.39 Migraine without aura 56 019364 G43.009 [id number] Imer Lieberman MD [facility] [address] [place] [address] Gordo MONTERO YAKOV 96092-022 4 07/25/2021 13:52:53 07/25/2021 16:35:44 Idiopathic non-familial dystonia 000891016 G24.1 Dystonia 71793324 G24.3 Facial spasm 15819834 G5 1.39 Migraine without aura 56 359031 G43.009 [id number] Imer Lieberman MD [facility] [address] [place] [address] Gordo MONTEROYAKOV 82415-066 4 09/05/2021 14:01:17 09/10/2021 10:57:43 Idiopathic non-familial dystonia 393226750 G24.1 Dystonia 77632890 G24.3 Facial spasm 37018285 G5 1.39 Migraine without aura 56 015191 G43.009 [id number] Imer Lieberman MD [facility] [address] [place] [address] JOSE RETANAYAKOV RICHARD 10579-348 4 11/07/2021 12:25:50 11/07/2021 18:58:37 Idiopathic non-familial dystonia 121786341 G24.1 Dystonia 05150268 G24.3 Facial spasm 56104285 G5 1.39 Migraine without aura 56 668669 G43.009 [id number] Imer Lieberman MD [facility] [address] [place] [address] Gordo RETANAWINSTONYAKOV RICHARD 28098-927 4 12/06/2021 13:06:48 12/10/2021 15:27:19 Idiopathic non-familial dystonia 373115015 G24.1 Dystonia 82873371 G24.3 Facial spasm 34321016 G5 1.39 Migraine without aura 56 676871 G43.009 [id number] Imer Lieberman MD [facility] [address] [place] [address] Gordo YAKOV MONTERO 47316-366 4 02/13/2022 07:56:35 02/13/2022 09:24:50 Idiopathic non-familial dystonia 394401555 G24.1 Dystonia 31729820 G24.3 Facial spasm 35952720 G5 1.39 Migraine without aura 56 060294 G43.009 [id number] Imer Lieberman MD [facility] [address] [place] [address] Gordo YAKOV MONTERO 20180-948 4 03/14/2022 13:58:56 03/19/2022 09:35:39 Idiopathic non-familial dystonia 655049558 G24.1 Dystonia 46542649 G24.3 Facial spasm 00969086 G5 1.39 Migraine without aura 56 954974 G43.009 7012 Imer Lieberman MD [facility] [address] [place] [address] Gordo YAKOV MONTERO 52902-449 4 05/16/2022 11:40:07 05/16/2022 15:55:55 Idiopathic non-familial dystonia 591007828 G24.1 Dystonia 22744869 G24.3 Facial spasm 64876205 G5 1.39 Migraine without aura 56 416749 G43.009 [id number] Imer Lieberman MD [facility] [address] [place] [address] Gordo YAKOV MONTERO 95245-193 4 07/09/2022 13:59:24 07/25/2022 12:39:21 Idiopathic non-familial dystonia 524353763 G24.1 Dystonia 54424531 G24.3 Facial spasm 60248004 G5 1.39 Migraine without aura 56 370715 G43.009 Migraine with aura 01025 06 G43.109 7846 Imer Lieberman MD [facility] [address] [place] [address] Gordo YAKOV MONTERO 43983-281 4 08/14/2022 15:04:31 08/14/2022 17:43:36 Idiopathic non-familial dystonia 338302598 G24.1 Dystonia 58797621 G24.3 Facial spasm 30082889 G5 1.39 Migraine without aura 56 015815 G43.009 [id number] ENRIKE NORTON PA-C [facility] [address] [place] [address] B YAKOV MONTERO 05332-670 4 10/01/2022 13:45:47 10/03/2022 11:40:32 Idiopathic non-familial dystonia 571545587 G24.1 Dystonia 84757598 G24.3 Facial spasm 45750161 G5 1.39 Migraine without aura 56 062767 G43.009 Migraine with aura 92183 06 G43.109 [id number] Imer Lieberman MD [facility] [address] [place] [address] JOSE RETANAHILARY YAKOV 62024-239 4 10/29/2022 10:18:41 11/04/2022 15:06:43 Idiopathic non-familial dystonia 387685483 G24.1 Dystonia 76860950 G24.3 Facial spasm 00820429 G5 1.39 Migraine without aura 56 163788 G43.009 Migraine with aura 94009 06 G43.109 9112 ENRIKE NORTON PA-C [facility] [address] [place] [address] JOSE RETANAYAKOV RICHARD 56527-378 4 11/28/2022 13:27:59 12/02/2022 15:28:22 Idiopathic non-familial dystonia 139516546 G24.1 Dystonia 42002926 G24.3 Facial spasm 58175598 G5 1.39 Migraine without aura 56 028331 G43.009 Migraine with aura 49548 06 G43.109 9373 Imer Lieberman MD [facility] [address] [place] [address] JOSE MONTERO YAKOV 93625-710 4 12/19/2022 11:07:15 12/23/2022 16:34:25 Idiopathic non-familial dystonia 745978608 G24.1 Dystonia 16060001 G24.3 Facial spasm 79542594 G5 1.39 Migraine without aura 56 913848 G43.009 Migraine with aura 06879 06 G43.109 [id number] Imer Lieberman MD [facility] [address] [place] [address] JOSE Gordo RETANAWINSTONYAKOV RICHARD 21348-266 4 01/23/2023 09:21:21 02/10/2023 16:21:14 Idiopathic non-familial dystonia 973392792 G24.1 Dystonia 59509904 G24.3 Facial spasm 15444808 G5 1.39 Migraine without aura 56 283958 G43.009 Migraine with aura 12579 06 G43.109 [id number] Imer Lieberman MD [facility] [address] [place] [address] Gordo MONTERO YAKOV 11317-994 4 03/18/2023 10:30:58 03/19/2023 17:32:28 Idiopathic non-familial dystonia 394841674 G24.1 Dystonia 40612399 G24.3 Facial spasm 59995643 G5 1.39 Migraine without aura 56 864119 G43.009 Migraine with aura 32213 06 G43.109 [id number] ENRIKE NORTON PA-C [facility] [address] [place] [address] Gordo MONTERO YAKOV 40201-335 4 04/24/2023 10:15:35 04/30/2023 10:38:58 Idiopathic non-familial dystonia 088197125 G24.1 Dystonia 78392171 G24.3 Facial spasm 49943776 G5 1.39 Migraine without aura 56 762483 G43.009 Migraine with aura 33717 06 G43.109 [id number] Imer Lieberman MD [facility] [address] [place] [address] Gordo RETANAWINSTON, YAKOV 69342-250 4 05/28/2023 09:14:15 05/29/2023 16:35:04 Idiopathic non-familial dystonia 527810959 G24.1 Dystonia 85715515 G24.3 Facial spasm 17706459 G5 1.39 Migraine without aura 56 323984 G43.009 Migraine with aura 24776 06 G43.109 [id number] Imer Lieberman MD [facility] [address] [place] [address] Gordo RETANAWINSTONYAKOV RICHARD 75816-109 4 10/07/2023 09:31:55 10/13/2023 13:14:20 Idiopathic non-familial dystonia 901091297 G24.1 Dystonia 75364257 G24.3 Facial spasm 39936082 G5 1.39 Migraine without aura 56 667601 G43.009 Migraine with aura 85888 06 G43.109 [id number] Imer Lieberman MD [facility] [address] [place] [address] Gordo RETANAWINSTON, YAKOV 63473-852 4 11/11/2023 10:36:51 11/11/2023 11:43:45 Idiopathic non-familial dystonia 154779495 G24.1 Dystonia 19808980 G24.3 Facial spasm 59012209 G5 1.39 Migraine without aura 56 592453 G43.009 Migraine with aura 26051 06 G43.109 [id number] Imer Lieberman MD [facility] [address] [place] [address] [place] [address] 4 12/10/2023 11:11:30 12/10/2023 12:19:37 Idiopathic non-familial dystonia 358888338 G24.1 Dystonia 98766510 G24.3 Facial spasm 85109301 G5 1.39 Migraine without aura 56 191865 G43.009 Migraine with aura 38026 06 G43.109 [id number] Imer Lieberman MD [facility] [address] [place] [address] [place] [address] 4 03/23/2024 11:39:14 03/23/2024 17:16:47 Idiopathic non-familial dystonia 776099530 G24.1 Dystonia 02297940 G24.3 Facial spasm 22251706 G5 1.39 Migraine without aura 56 800479 G43.009 Migraine with aura 69095 06 G43.109 Health Concerns Section Related Observation LastModified by Organization Detai ls LastModified Time None Recorded Concern Status LastModified by Organization Details LastModified Time None Recorded Advance Directives Directive None Recorded Payers Encounter Date Sequence Insurance Name Policy Number Policy Leone Covered Member ID Leone Member ID Guarantor Name 05/28/2023 1 [facility] [place] Ute Ashlyn [id number] Ute Ashlyn 10/07/2023 1 [facility] [employer] Ute Ashlyn [id number] Ute Ashlyn 11/11/2023 1 [facility] [employer] Ute Ashlyn [id number] Ute Ashlyn 12/10/2023 1 [facility] [employer] Ute Ashlyn [id number] Ute Ashlyn 03/23/2024 1 [facility] [employer] Ute Ashlyn [id number] Ute Ashlyn Notes Date Note Type Note [...] She is working with Andreina Greer APRN, [facility] comprehensive pain management center and will [...] but she has also been to her pin inserter/ophthalm ologist and had her glasses changed but [...] She came in later that day to parts picker the Aimovig 70 mg/mL sample and [...] needed to decide between Botox or Aimovig. >>>>>>>>>>>>>>>oDmingo hein of August 14, 2022 Botox injections [...] with psychiatry on this. Imer Lieberman MD [address] [place] [address] [place], [address], [facility] 05/28/2023 13:26:47 10/07/2023 text/html Follow-up [...] She is working with Andreina Greer APRN, [facility] comprehensive pain management center and will [...] but she has also been to her pin inserter/ophthalm ologist and had her glasses changed but [...] She came in later that day to parts picker the Aimovig 70 mg/mL sample and [...] with psychiatry on this. Imer Lieberman MD [address] [place] [address] Winston Caro YAKOV, [phone], [facility] 10/13/2023 11:40:53 11/11/2023 text/html Follow-up [...] She is working with Andreina Greer APRN, [facility] comprehensive pain management center and will [...] but she has also been to her pin inserter/ophthalm ologist and had her glasses changed but [...] She came in later that day to parts picker the Aimovig 70 mg/mL sample and [...] with psychiatry on this. Imer Lieberman MD [address] [place] [address], [phone], [facility] 11/11/2023 11:32:39 12/10/2023 text/html Follow-up [...] She is working with Andreina Greer APRN, [facility] comprehensive pain management center and will [...] but she has also been to her pin inserter/ophthalm ologist and had her glasses changed but [...] She came in later that day to parts picker the Aimovig 70 mg/mL sample and [...] with psychiatry on this. Imer Lieberman MD [address] [place] [address] [place], [address], [facility] 12/10/2023 12:17:54 03/23/2024 text/html Follow-up [...] She is working with Andreina Greer APRN, [facility] comprehensive pain management center and will [...] but she has also been to her pin inserter/ophthalm ologist and had her glasses changed but [...] She came in later that day to parts picker the Aimovig 70 mg/mL sample and [...] with psychiatry on this. Imer Lieberman MD [address] [place] [address] [place], [address], [facility] 03/23/2024 13:04:47 OBGyn Episode No OBEpisode recorded.
--- OUTSIDE RECORDS SUMMARY | 2024-08-26 12:38 | XMS_ITS | Clinical Summary ---
Author Organization [facility], Address [address] [place] [address] [place] [address] Phone Care Team Providers Care Set Up Mechanic Coating Machines Name Role Phone Villa Lr MD Primary Care Provider +1- [phone] Allergies No known active allergies Medications clonazePAM [...] D BEFORE MEALS DIRECTED. 1 Active Creon 32257-83090 units capsule TOME 1 C PSULA POR [...] Visit [facility] [place], [address] [place] [address] Abdulkadir Osorio MD [address] [facility] [place] [address] Health Maintenance Due Date Last Done Comments [...] Glucose 105(H) 70 - 99 mg/dL [facility] Uric Acid 3.8 2.6 - 6.2 mg/dL [facility] Comment:Therapeutic target f or gout patients: <6.0 BUN 11 6 - 24 mg/dL [facility] Creatinine 0.58 0.57 - 1.00 mg/dL [facility] eGFR CKD-EPI CR 2020 112 >59 mL/min/1.7 3 [facility] BUN/Creatinine Ratio 19 9 - 23 [facility] Sodium 139 134 - 144 mmol/L [facility] Potassium 4.3 3.5 - 5.2 mmol/L [facility] Chloride 103 96 - 106 mmol/L [facility] Bicarbonate (CO2) 22 20 - 29 mmol/L [facility] Anion Gap 14.0 10.0 - 18.0 mmol/L [facility] Calcium 9.9 8.7 - 10.2 mg/dL [facility] Total Protein 6.6 6.0 - 8.5 g/dL [facility] Albumin 4.2 3.9 - 4.9 g/dL [facility] Globulin 2.4 1.5 - 4.5 g/dL [facility] Phosphorus 3.4 3.0 - 4.3 mg/dL [facility] 07/05/2024 11:4 4 AM EST 07/05/2024 us Abdulkadir Osorio MD LAB [id number] OLICITED RESULTS Final Result [facility] [address] [place] [address] * Microscopic Examination (07/05/2024 11:44 AM EST) WBC, Urine None seen 0 - 5 /hpf [facility] RBC, Urine None seen 0 - 2 /hpf [facility] Squamous Epithelial, Urine 0-10 0 - 10 /hpf [facility] Casts None seen None seen /lpf [facility] Bacteria, Urine None seen None seen/Few [facility] 07/05/2024 11:4 4 AM EST 07/05/2024 Abdulkadir Osorio MD LAB MICROBIOLOGY - GENERAL ORD ERABLES Final Result [facility] [address] [place] [address] * (ABNORMAL) Iron Panel (Fe, TIBC, TSAT) (07/05/2024 11:44 AM EST) TIBC 385 250 - 450 ug/dL [facility] UIBC 348 131 - 425 ug/dL [facility] Iron 37 27 - 159 ug/dL [facility] Iron Saturation (TSat) 10(L) 15 - 55 % [facility] 07/05/2024 11:4 4 AM EST 07/05/2024 Abdulkadir Osorio MD LAB BLOOD ORDERABLES Final Res ult [facility] [address] [place] [address] * Urine Albumin / Creatinine Ratio (07/05/2024 11:44 AM EST) Creatinine, Ur 55.2 Not Estab. mg/dL [facility] Urine Microalbumin <3.0 Not Estab. ug/mL [facility] Microalbumin/Crea tinine Ratio <5 0 - 29 mg/g creat [facility] Comment: ? Normal: ?0 - ??29 ? Moderately increased: 30 - 300 ? Severely increased: ? >300 07/05/2024 11:4 4 AM EST 07/05/2024 us Abdulkadir Osorio MD LAB URINE ORDERABLES Final Res ult [facility] [address] [place] [address] * Vitamin D 25 Hydroxy (07/05/2024 11:44 AM EST) Vitamin D, 25-OH, Total 30.0 30.0 - 100.0 ng/mL [facility] Comment: Vitamin D deficiency has been defined by the [place] of Medicine and an Endocrine Society practice guideline as a level of serum 25-OH vitamin D less than 20 ng/mL (1,2). The Endocrine Society went on to further define vitamin D insufficiency as a level between 21 and 29 ng/mL (2). 1. IOM ([place] of Medicine). 2010. Dietary reference ?? intakes for calcium and D. [place]: The ?? National AcademSimplePons, Inc. Press. 2. Levy MF, Roslyn [place], Ousmane OCAMPO, et al. ?? Evaluation, treatment, and prevention of vitamin D ?? deficiency: an Endocrine Society clinical practice ?? guideline. JCEM. 2010; 96(7):1911-30. 07/05/2024 11:4 4 AM EST 07/05/2024 Abdulkadir Osorio MD LAB BLOOD ORDERABLES Final Res ult [facility] [address] [place] [address] * (ABNORMAL) Urinalysis with microscopic (07/05/2024 11:44 AM EST) Specific [place], Urine 1.011 1.005 - 1.030 [facility] pH Urine 8.0(H) 5.0 - 7.5 [facility] Color, Urine Yellow Yellow [facility] Appearance Urine Clear Clear [facility] [phone] WBC Esterase Urine Negative Negative [facility] [phone] Protein, Ur Negative Negative/Tra ce [facility] Glucose, Ur Negative Negative [facility] Ketones, Urine Negative Negative [facility] Blood Urine Negative Negative [facility] [phone] Bilirubin Urine Negative Negative [facility] [phone] Urobilinogen Urine 0.2 0.2 - 1.0 mg/dL [facility] Nitrite, Urine Negative Negative [facility] [phone] Microscopic Examination Comment [facility] Comment:Microscopic follows if indicated. Other Microsc. Observations See below: [facility] Comment:Microscopic was casper cated and was performed. 07/05/2024 11:4 4 AM EST 07/05/2024 Abdulkadir Osorio MD LAB URINE ORDERABLES Final Res ult [facility] [address] [place] [address] * (ABNORMAL) CBC and Differential (07/05/2024 11:44 AM EST) WBC 7.6 3.4 - 10.8 x10E3/uL [facility] RBC 4.00 3.77 - 5.28 x10E6/uL [facility] Hemoglobin 11.7 11.1 - 15.9 g/dL [facility] Hematocrit 38.1 34.0 - 46.6 % [facility] MCV 95 79 - 97 fL [facility] MCH 29.3 26.6 - 33.0 pg [facility] MCHC 30.7(L) 31.5 - 35.7 g/dL [facility] RDW 13.1 11.7 - 15.4 % [facility] Platelets 284 150 - 450 x10E3/uL [facility] Neutrophils Relative 61 Not Estab. % [facility] Lymphocytes Relative 30 Not Estab. % [facility] Monocytes 8 Not Estab. % [facility] Eosinophils Relative 1 Not Estab. % [facility] Basophils Relative 0 Not Estab. % [facility] Neutrophils Absolute 4.6 1.4 - 7.0 x10E3/uL [facility] Lymphocytes Absolute 2.3 0.7 - 3.1 x10E3/uL [facility] Monocytes Absolute 0.6 0.1 - 0.9 x10E3/uL [facility] Eosinophils Absolute 0.1 0.0 - 0.4 x10E3/uL [facility] Basophils Absolute 0.0 0.0 - 0.2 x10E3/uL [facility] Immature Granulocytes 0 Not Estab. % [facility] Immature Grans (Absolute) 0.0 0.0 - 0.1 x10E3/uL [facility] 07/05/2024 11:4 4 AM EST 07/05/2024 Abdulkadir Osorio MD LAB BLOOD ORDERABLES Final Res ult [facility] [address] [place] [address] * PTH, Intact (07/05/2024 11:44 AM EST) PTH 20 15 - 65 pg/mL [facility] 07/05/2024 11:4 4 AM EST 07/05/2024 Abdulkadir Osorio MD LAB BLOOD ORDERABLES Final Res ult Performing Organization Address City/[facility]/ZIP Co de Phone Number [facility] [address] [place] [address] * Magnesium (07/05/2024 11:44 AM EST) Magnesium 1.9 1.6 - 2.3 mg/dL [facility] 07/05/2024 11:4 4 AM EST 07/05/2024 Abdulkadir Osorio MD LAB BLOOD ORDERABLES Final Res ult [facility] [address] [place] [address] * (ABNORMAL) Hemoglobin A1c (07/05/2024 11:44 AM EST) Hemoglobin A1C 7.4(H) 4.8 - 5.6 % [facility] Comment: ? Prediabetes: 5.7 - 6.4 ? Diabetes: >6.4 ? Glycemic control for adults with diabetes: <7.0 07/05/2024 11:4 4 AM EST 07/05/2024 Abdulkadir Osorio MD LAB BLOOD ORDERABLES Final Res ult Performing Organization Address [facility]/ZIP Co de Phone Number [facility] [address] [place] [address] * (ABNORMAL) Ferritin (07/05/2024 11:44 AM EST) Ferritin 11(L) 15 - 150 ng/mL [facility] 07/05/2024 11:4 4 AM EST 07/05/2024 Abdulkadir Osorio MD LAB BLOOD ORDERABLES Final Res ult [facility] [address] [place] [address] from Last 3 Months Insurance [address] [place] [id number] [facility] Care Teams Set Up Mechanic Coating Machines Relationship Specialty Start Date End Date Villa Lr MD [address] [place] [address] PCP - General 05/04/19
--- OUTSIDE RECORDS SUMMARY | 2024-08-26 12:38 | XMS_ITS | Encounter Summary ---
Author Organization [facility] [facility] Address [address] [place] [address] Care Team Providers Care Stummel Selector Name Role Phone Unavailable Primary Care Provider Unavailabl e Encounter Details Date Type Department Care Team (Latest Contact Info) Description 03/18/2019 Abstract [facility] CONVERSIONS Dental, Provider, DDS Social History Tobacco [...]
--- OUTSIDE RECORDS SUMMARY | 2024-08-26 12:38 | XMS_ITS | Encounter Summary ---
Author Organization [facility] Address [address] [place] [address] Care Team Providers Care Hydraulic Spinner Name Role Phone Unavailable Primary Care Provider Unavailabl e Encounter Details Date Type Department Care Team (Latest Contact Info) Description 05/17/2021 Abstract [facility] CONVERSIONS Dental, Provider, DDS Social [...]
--- OUTSIDE RECORDS SUMMARY | 2024-08-26 12:38 | XMS_ITS | Encounter Summary ---
Author Organization [facility] [place], Address [address] [place] [address] Phone Care Team Providers Care Student Records Coordinator Name Role Phone Villa Lr MD Primary Care Provider +1- [phone] Encounter Details Date Type Department Care Team (Late st Contact Info) Description 06/16/2023 Documentation Only [facility] [address] [place] [address] Abdulkadir Osorio MD [address] [place] [address] [place] [address] Social History Tobacco Use Types [...] Visit [facility] [address] [place] [address] Abdulkadir Osorio MD [address] [place] [address] [place] [address] documented as of this encounter Visit Diagnoses Not on filedocumented in this encounter Care Teams Student Records Coordinator Relationship Specialty Start Date End Date Villa Lr MD [address] [place] [address] PCP - General 05/04/19 documented as of this encounter
--- OUTSIDE RECORDS SUMMARY | 2024-08-26 12:38 | XMS_ITS | Clinical Summary ---
Author Organization [employer] Address [address] [place] [address] Care Team Providers Care Lean Leader Name Role Phone Unavailable Primary Care Provider [...]
--- OUTSIDE RECORDS SUMMARY | 2024-08-26 12:38 | XMS_ITS | Encounter Summary ---
Author Organization [facility] [place], Address [address] [place] [address] Phone Care Team Providers Care Template Inspector Name Role Phone Villa Lr MD Primary Care Provider +1- [phone] Encounter Details Date Type Department Care Team (Late st Contact Info) Description 06/10/2022 Documentation Only [facility] [address] [place] [address] Abdulkadir Osorio MD [address] [place] [address] [place] [address] Social History Tobacco Use Types [...] Visit [facility] [address] [place] [address] Abdulkadir Osorio MD [address] [place] [address] [place] [address] documented as of this encounter Visit Diagnoses Not on filedocumented in this encounter Care Teams Template Inspector Relationship Specialty Start Date End Date Villa Lr MD [address] [place] [address] PCP - General 05/04/19 documented as of this encounter
== END 2024-08-26 11:18 | disposition home or self-care (01) ==
PROVIDERS: PCP Internal Medicine; Visit Provider Internal Medicine
DX: J45.40 Moderate persistent asthma, uncomplicated (principal); J30.9 Allergic rhinitis, unspecified; G47.33 Obstructive sleep apnea (adult) (pediatric)
CPT/HCPCS: 99213

== ENCOUNTER → 2024-08-26 10:38 | Outpatient (BNVA) | payer OTHER, SELFPAY | PROVIDERS: PCP Internal Medicine; Visit Provider Internal Medicine | DX: J45.40 Moderate persistent asthma, uncomplicated (principal); J30.9 Allergic rhinitis, unspecified; G47.33 Obstructive sleep apnea (adult) (pediatric) | CPT/HCPCS: 99212 ==

== ENCOUNTER 2024-08-30 11:27 | Outpatient (REF) | payer OTHER, SELFPAY ==
--- NOTE | ~2024-08-30 | MM_ITS ---
EXAMINATION: MM SCREENING DIGITAL BREAST TOMOSYNTHESIS, BILATERAL CLINICAL INFORMATION: Screening. Asymptomatic. COMPARISON: Mammography: Comparison is made with available priors TECHNIQUE: Digital breast mammography with tomosynthesis is performed in both the craniocaudal and mediolateral oblique views along with computer-aided detection (CAD). FINDINGS: There are scattered areas of fibroglandular density (ACR BI-RADS breast composition Category b). Left excisional biopsy. There are no significant masses, abnormal calcifications, or other abnormalities. MM/MM tomosynthesis screening BI IMPRESSION: No mammographic evidence of malignancy. ASSESSMENT: BI-RADS BI-RADS 2 - Benign Findings RECOMMENDATION: Routine annual mammography screening. 1 year F/U This examination should not preclude the clinical evaluation of a suspicious palpable abnormality. This patient's information was entered into a reminder system with a target due date for their next mammogram. Electronically signed by: Denice Pascual DO 08/31/2024 05:27 PM DANIELA
--- OUTSIDE RECORDS SUMMARY | 2024-08-30 13:39 | XMS_ITS | Encounter Summary ---
Author Organization [facility] Address [address] [place] [address] Care Team Providers Care Pulper Operator Name Role Phone Unavailable Primary Care Provider Unavailabl e Encounter Details Date Type Department Care Team (Latest Contact Info) Description 03/18/2019 Abstract [facility] CONVERSIONS Dental, Provider, DDS Social History [...]
--- OUTSIDE RECORDS SUMMARY | 2024-08-30 13:39 | XMS_ITS | Clinical Summary ---
Author Organization [employer] Address [address] [place] [address] Care Team Providers Care Flight Paramedic Name Role Phone Unavailable Primary Care Provider [...]
--- OUTSIDE RECORDS SUMMARY | 2024-08-30 13:39 | XMS_ITS | Encounter Summary ---
Author Organization [facility] [place], Address [address] [place] [address] Phone Care Team Providers Care Plaster Molder Name Role Phone Villa Lr MD Primary Care Provider +1- [phone] Encounter Details Date Type Department Care Team (Late st Contact Info) Description 06/10/2022 Documentation Only [facility] [address] [place] [address] Abdulkadir Osorio MD [address] [place] [address] [place] [address] Social History Tobacco Use Types [...] Visit [facility] [address] [place] [address] Abdulkadir Osorio MD [address] [place] [address] [place] [address] documented as of this encounter Visit Diagnoses Not on filedocumented in this encounter Care Teams Plaster Molder Relationship Specialty Start Date End Date Villa Lr MD [address] [place] [address] PCP - General 05/04/19 documented as of this encounter
--- OUTSIDE RECORDS SUMMARY | 2024-08-30 13:39 | XMS_ITS | Encounter Summary ---
Author Organization [employer] [facility] Address [address] [place] [address] Care Team Providers Care Obstetrics Teacher Name Role Phone Unavailable Primary Care Provider Unavailabl e Encounter Details Date Type Department Care Team (Latest Contact Info) Description 05/17/2021 Abstract [facility] CONVERSIONS Dental, Provider, DDS Social [...]
--- OUTSIDE RECORDS SUMMARY | 2024-08-30 13:39 | XMS_ITS | Encounter Summary ---
Author Organization [facility] [place], Address [address] [place] [address] Phone Care Team Providers Care Brooch Maker Novelty Name Role Phone Villa Lr MD Primary Care Provider +1- [phone] Encounter Details Date Type Department Care Team (Late st Contact Info) Description 06/16/2023 Documentation Only [facility] [address] [place] [address] Abdulkadir Osorio MD [address] [place] [address] [place] [address] Social History Tobacco Use Types [...] Visit [facility] [address] [place] [address] Abdulkadir Osorio MD [address] [place] [address] [place] [address] documented as of this encounter Visit Diagnoses Not on filedocumented in this encounter Care Teams Brooch Maker Novelty Relationship Specialty Start Date End Date Villa Lr MD [address] [place] [address] PCP - General 05/04/19 documented as of this encounter
--- OUTSIDE RECORDS SUMMARY | 2024-08-30 13:39 | XMS_ITS | Clinical Summary ---
Author Organization [facility], Address [address] [place] [address] [place] [address] Phone Care Team Providers Care Geriatric Nursing Assistant Name Role Phone Villa Lr MD Primary Care Provider [phone] Allergies No known active allergies Medications clonazePAM [...] D BEFORE MEALS DIRECTED. 1 Active Creon 67276-47746 units capsule TOME 1 C PSULA POR [...] Visit [facility], [address] [place] [address] Abdulkadir Osorio MD [address] [place] [address] Health [...] Glucose 105(H) 70 - 99 mg/dL [facility] Uric Acid 3.8 2.6 - 6.2 mg/dL [facility] Comment:Therapeutic target f or gout patients: <6.0 BUN 11 6 - 24 mg/dL [facility] Creatinine 0.58 0.57 - 1.00 mg/dL [facility] eGFR CKD-EPI CR 2020 112 >59 mL/min/1.7 3 [facility] BUN/Creatinine Ratio 19 9 - 23 [facility] Sodium 139 134 - 144 mmol/L [facility] Potassium 4.3 3.5 - 5.2 mmol/L [facility] Chloride 103 96 - 106 mmol/L [facility] Bicarbonate (CO2) 22 20 - 29 mmol/L [facility] Anion Gap 14.0 10.0 - 18.0 mmol/L [facility] Calcium 9.9 8.7 - 10.2 mg/dL [facility] Total Protein 6.6 6.0 - 8.5 g/dL [facility] Albumin 4.2 3.9 - 4.9 g/dL [facility] Globulin 2.4 1.5 - 4.5 g/dL [facility] Phosphorus 3.4 3.0 - 4.3 mg/dL [facility] 07/05/2024 11:4 4 AM EST 07/05/2024 us Abdulkadir Osorio MD LAB [id number] OLICITED RESULTS Final Result [facility] [address] [place] [address] * Microscopic Examination (07/05/2024 11:44 AM EST) WBC, Urine None seen 0 - 5 /hpf [facility] RBC, Urine None seen 0 - 2 /hpf [facility] Squamous Epithelial, Urine 0-10 0 - 10 /hpf [facility] Casts None seen None seen /lpf [facility] Bacteria, Urine None seen None seen/Few [facility] 07/05/2024 11:4 4 AM EST 07/05/2024 Abdulkadir Osorio MD LAB MICROBIOLOGY - GENERAL ORD ERABLES Final Result [facility] [address] [place] [address] * (ABNORMAL) Iron Panel (Fe, TIBC, TSAT) (07/05/2024 11:44 AM EST) TIBC 385 250 - 450 ug/dL [facility] UIBC 348 131 - 425 ug/dL [facility] Iron 37 27 - 159 ug/dL [facility] Iron Saturation (TSat) 10(L) 15 - 55 % [facility] 07/05/2024 11:4 4 AM EST 07/05/2024 Abdulkadir Osorio MD LAB BLOOD ORDERABLES Final Res ult [facility] [address] [place] [address] * Urine Albumin / Creatinine Ratio (07/05/2024 11:44 AM EST) Creatinine, Ur 55.2 Not Estab. mg/dL [facility] Urine Microalbumin <3.0 Not Estab. ug/mL [facility] Microalbumin/Crea tinine Ratio <5 0 - 29 mg/g creat [facility] Comment: ? Normal: ?0 - ??29 ? Moderately increased: 30 - 300 ? Severely increased: ? >300 07/05/2024 11:4 4 AM EST 07/05/2024 us Abdulkadir Osorio MD LAB URINE ORDERABLES Final Res ult [facility] [address] [place] [address] * Vitamin D 25 Hydroxy (07/05/2024 11:44 AM EST) Vitamin D, 25-OH, Total 30.0 30.0 - 100.0 ng/mL [facility] Comment: Vitamin D deficiency has been defined by the [place] of Medicine and an Endocrine Society practice guideline as a level of serum 25-OH vitamin D less than 20 ng/mL (1,2). The Endocrine Society went on to further define vitamin D insufficiency as a level between 21 and 29 ng/mL (2). 1. IOM ([place] of Medicine). 2010. Dietary reference ?? intakes for calcium and D. [place]: The ?? National AcademAlekto Press. 2. Levy MF, [place], Ousmane OCAMPO, et al. ?? Evaluation, treatment, and prevention of vitamin D ?? deficiency: an Endocrine Society clinical practice ?? guideline. JCEM. 2010; 96(7):1911-30. 07/05/2024 11:4 4 AM EST 07/05/2024 Abdulkadir Osorio MD LAB BLOOD ORDERABLES Final Res ult [facility] [address] [place] [address] * (ABNORMAL) Urinalysis with microscopic (07/05/2024 11:44 AM EST) Specific [place], Urine 1.011 1.005 - 1.030 [facility] pH Urine 8.0(H) 5.0 - 7.5 [facility] Color, Urine Yellow Yellow [facility] [phone] Appearance Urine Clear Clear [facility] WBC Esterase Urine Negative Negative [facility] [phone] Protein, Ur Negative Negative/Tra ce [facility] [phone] Glucose, Ur Negative Negative [facility] Ketones, Urine Negative Negative [facility] Blood Urine Negative Negative [facility] Bilirubin Urine Negative Negative [facility] Urobilinogen Urine 0.2 0.2 - 1.0 mg/dL [facility] Nitrite, Urine Negative Negative [facility] [phone] Microscopic Examination Comment [facility] Comment:Microscopic follows if indicated. Other Microsc. Observations See below: [facility] Comment:Microscopic was casper cated and was performed. 07/05/2024 11:4 4 AM EST 07/05/2024 Abdulkadir Osorio MD LAB URINE ORDERABLES Final Res ult [facility] [address] [place] [address] * (ABNORMAL) CBC and Differential (07/05/2024 11:44 AM EST) WBC 7.6 3.4 - 10.8 x10E3/uL [facility] RBC 4.00 3.77 - 5.28 x10E6/uL [facility] Hemoglobin 11.7 11.1 - 15.9 g/dL [facility] Hematocrit 38.1 34.0 - 46.6 % [facility] MCV 95 79 - 97 fL [facility] MCH 29.3 26.6 - 33.0 pg [facility] MCHC 30.7(L) 31.5 - 35.7 g/dL [facility] RDW 13.1 11.7 - 15.4 % [facility] Platelets 284 150 - 450 x10E3/uL [facility] Neutrophils Relative 61 Not Estab. % [facility] Lymphocytes Relative 30 Not Estab. % [facility] Monocytes 8 Not Estab. % [facility] Eosinophils Relative 1 Not Estab. % [facility] Basophils Relative 0 Not Estab. % [facility] Neutrophils Absolute 4.6 1.4 - 7.0 x10E3/uL [facility] Lymphocytes Absolute 2.3 0.7 - 3.1 x10E3/uL [facility] Monocytes Absolute 0.6 0.1 - 0.9 x10E3/uL [facility] Eosinophils Absolute 0.1 0.0 - 0.4 x10E3/uL [facility] Basophils Absolute 0.0 0.0 - 0.2 x10E3/uL [facility] Immature Granulocytes 0 Not Estab. % [facility] Immature Grans (Absolute) 0.0 0.0 - 0.1 x10E3/uL [facility] 07/05/2024 11:4 4 AM EST 07/05/2024 Abdulkadir Osorio MD LAB BLOOD ORDERABLES Final Res ult [facility] [address] [place] [address] * PTH, Intact (07/05/2024 11:44 AM EST) PTH 20 15 - 65 pg/mL [facility] 07/05/2024 11:4 4 AM EST 07/05/2024 Abdulkadir Osorio MD LAB BLOOD ORDERABLES Final Res ult Performing Organization Address City/[facility]/ZIP Co de Phone Number [facility] [address] [place] [address] * Magnesium (07/05/2024 11:44 AM EST) Magnesium 1.9 1.6 - 2.3 mg/dL [facility] 07/05/2024 11:4 4 AM EST 07/05/2024 Abdulkadir Osorio MD LAB BLOOD ORDERABLES Final Res ult [facility] [address] [place] [address] * (ABNORMAL) Hemoglobin A1c (07/05/2024 11:44 AM EST) Hemoglobin A1C 7.4(H) 4.8 - 5.6 % [facility] Comment: ? Prediabetes: 5.7 - 6.4 ? Diabetes: >6.4 ? Glycemic control for adults with diabetes: <7.0 07/05/2024 11:4 4 AM EST 07/05/2024 Abdulkadir Osorio MD LAB BLOOD ORDERABLES Final Res ult Performing Organization Address City/[facility]/ZIP Co de Phone Number [facility] [address] [place] [address] * (ABNORMAL) Ferritin (07/05/2024 11:44 AM EST) Ferritin 11(L) 15 - 150 ng/mL [facility] 07/05/2024 11:4 4 AM EST 07/05/2024 Abdulkadir Osorio MD LAB BLOOD ORDERABLES Final Res [facility] [address] [place] [address] from Last 3 Months Insurance [address] [place] [address] [facility] Care Teams Geriatric Nursing Assistant Relationship Specialty Start Date End Date Villa Lr MD [address] [place] [address] PCP - General 05/04/19
--- OUTSIDE RECORDS SUMMARY | 2024-08-30 13:39 | XMS_ITS | Data Portability ---
Author Organization [facility] [employer], [employer] Address [address] [facility] [place] [address] Care Team Providers Care Russian Teacher Name Role Phone LATIA RASHID Referring Provider [...] today, I reviewed the propranolol prescription in [place] and noted that she had a 90-day [...] with April 2023 confirmation of medications from [facility]) -From [facility]: propranolol 60 mg twice daily topiramate 100 mg twice daily, Aimovig 140 mg/mL monthly autoinjector and Ubrelvy 100 mg as needed for breakthrough migraine from [facility] (she was also concurrently on rizatriptan [...] with April 2023 confirmation of medications from [facility]) -From [facility]: propranolol 60 mg twice daily topiramate 100 mg twice daily, Aimovig 140 mg/mL monthly autoinjector and Ubrelvy 100 mg as needed for breakthrough migraine from [facility] (she was also concurrently on rizatriptan [...] la versi? ? ?n gratuita del traductor [email or web address] (with edits by me) -Continue propranolol 60mg [...] with April 2023 confirmation of medications from [facility]) -From [facility]: propranolol 60 mg twice daily topiramate 100 mg twice daily, Aimovig 140 mg/mL monthly autoinjector and Ubrelvy 100 mg as needed for breakthrough migraine from [facility] (she was also concurrently on rizatriptan [...] extra dose in her refrigerator and to fern picker the new prescription when it gets. [...] with April 2023 confirmation of medications from [facility]) -From [facility]: propranolol 60 mg twice daily topiramate 100 mg twice daily, Aimovig 140 mg/mL monthly autoinjector and Ubrelvy 100 mg as needed for breakthrough migraine from [facility] (she was also concurrently on rizatriptan [...] extra dose in her refrigerator and to fern picker the new prescription when it gets. [...] with April 2023 confirmation of medications from [facility]) -From [facility]: propranolol 60 mg twice daily topiramate 100 mg twice daily, Aimovig 140 mg/mL monthly autoinjector and Ubrelvy 100 mg as needed for breakthrough migraine from [facility] (she was also concurrently on rizatriptan [...] mL subcutane ous auto-inje ctor 2023 024 [id number] [address] [place], [address], 03/23/2024 12:47:06 Ubrelvy 100 mg tablet 2023 024 [id number] [address] [place], [address], 03/23/2024 12:47:07 Ajovy 225 mg/1.5 mL subcutane ous auto-inje ctor 2023 024 [id number] [address] [place], [address], 12/10/2023 12:17:38 propranol ol 60 mg tablet 2023 024 [id number] [address] [place], [address], 11/11/2023 11:21:02 topiramat e 50 mg tablet 2023 024 [facility] [address] [place], [address], 11/11/2023 11:21:03 Aimovig Autoinjec tor 140 mg/mL subcutane ous auto-inje ctor 2023 024 [id number] [address] [place], [address], 03/23/2024 12:59:57 Ubrelvy 100 mg tablet [address] [facility], [address] [place], [address], 11/11/2023 11:21:02 topiramat e 100 mg tablet [address] [facility], [address] [place], [address], 10/07/2023 10:22:21 propranol ol 60 mg tablet [address] [facility], [address] [place], [address], 10/07/2023 10:22:21 Aimovig Autoinjec tor 140 mg/mL subcutane ous auto-inje ctor 2023 024 [id number] [address] [place], [address], 03/23/2024 12:59:57 Ubrelvy 100 mg tablet [address] [facility], [address] [place], [address], 10/07/2023 10:22:21 topiramat e 100 mg tablet [address] [facility], [address] [place], [address], 05/28/2023 09:56:01 propranol ol 60 mg tablet [address] [facility], [address] [place], [address], 05/28/2023 09:56:01 Aimovig Autoinjec tor 140 mg/mL subcutane ous auto-inje ctor 2022 023 [id number] [address] [place], [address], 03/23/2024 12:59:57 Ubrelvy 100 mg tablet [address] [id number], [address] [facility] [place], [address], 05/28/2023 09:56:01 Patient TargetsNo targets recorded. 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 She will fern picker a sample today. 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 She will fern picker a sample today. 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 She will fern picker a sample today. 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 She will fern picker a sample today. 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 She was running out of [email or web address] for breakthrough migraine reported October 01, 2022. [...] not discuss the addition of rizatriptan through [facility] which we have discussed previously as she [...] over the potential side effects. She will fern picker a sample today. 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 Procedures Surgical History Date Name Laterality Status Provider Name and Address Organization Details Recorded Time 4 botulinum injection completed Iemr Lieberman MD [address] [place], [place] [address], [address], [facility] 03/23/2024 12:37:46 4 botulinum injection completed Imer Lieberman MD [address] [place], [place] [address], [address], [facility] 12/10/2023 11:56:10 4 botulinum injection completed Imer Lieberman MD [address] [place], [place] [address], [address], [facility] 11/11/2023 11:10:22 4 botulinum injection completed ENRIKE NORTON PA-C [address] [place], [place] [address], [address], [facility] 10/07/2023 10:03:49 3 botulinum injection completed ENRIKE NROTON PA-C [address] [place], [place] [address], [address], [facility] 05/28/2023 09:39:33 3 botulinum injection completed ENRIKE NORTON PA-C [address] [place], [place] [address], [address], [facility] 04/24/2023 10:42:13 3 botulinum injection completed ENRIKE NORTON PA-C [address] [place], [place] [address], [address], [facility] 03/18/2023 10:47:21 3 botulinum injection completed ENRIKE NORTON PA-C [address] [place], [place] [address], [address], [facility] 01/23/2023 09:59:39 3 botulinum injection completed ENRIKE NORTON PA-C [address] [place] [address] B, YAKOV Montero, [address], [facility] 12/19/2022 11:33:40 3 botulinum injection completed ENRIKE NORTON PA-C [address] [place] [address] B, YAKOV Montero, [address], [facility] 11/28/2022 13:56:45 3 botulinum injection completed ENRIKE NORTON PA-C [address] [place] [address] B, YAKOV Montero, [address], [facility] 10/29/2022 10:47:52 3 botulinum injection completed ENRIKE NORTON PA-C [address] [place] [address] B, YAKOV Montero, [address], [facility] 10/01/2022 13:50:41 3 botulinum injection completed Imer Lieberman MD [address] [place] [address] B, YAKOV Montero, [address], [facility] 08/14/2022 17:00:39 3 botulinum injection completed ENRIKE NORTON PA-C [address] [place] [address] B, YAKOV Montero, [address], [facility] 07/09/2022 14:05:58 2 botulinum injection completed Imer Lieberman MD [address] [place] [address] B, YAKOV Montero, [address], [facility] 05/16/2022 13:33:52 2 botulinum injection completed ENRIKE NORTON PA-C [address] [place] [address] B, YAKOV Montero, [address], [facility] 03/14/2022 14:10:23 2 botulinum injection completed Imer Lieberman MD [address] [place] [address] B, YAKOV Montero, [address], [facility] 02/13/2022 09:15:23 2 botulinum injection completed ENRIKE NORTON PA-C [address] [place] [address], YAKOV Montero, [address], [facility] 12/06/2021 13:50:32 2 botulinum injection completed Imer Lieberman MD [address] [place] [address] B, YAKOV Montero, [address], [facility] 11/07/2021 13:30:06 2 botulinum injection completed ENRIKE NORTON PA-C [address] [place] [address] B, YAKOV Montero, [address], [facility] 09/05/2021 14:12:15 2 botulinum injection completed Imer Lieberman MD [address] [place] [address], YAKOV Montero, [address], [facility] 07/25/2021 15:27:34 2 botulinum injection completed ENRIKE NORTON PA-C [address] [place] [address], YAKOV Montero, [address], [facility] 07/12/2021 08:55:03 1 botulinum injection completed ENRIKE NORTON PA-C [address] [place] [address] B, YAKOV Montero, [address], [facility] 05/29/2021 22:54:52 1 botulinum injection completed Imer Lieberman MD [address] [place] [address], YAKOV Montero, [address], [facility] 04/25/2021 14:30:46 1 botulinum injection completed Imer Lieberman MD [address] [place] [address], YAKOV Montero, [address], [facility] 01/24/2021 19:05:02 1 botulinum injection completed Imer Lieberman MD [address] [place] [address] B, YAKOV Montero, [address], [facility] 10/25/2020 18:09:08 Imaging Results None recorded. 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 Dystonia 58442350 G24.3 Facial spasm 00011814 G5 1.39 Migraine without aura 56 088969 G43.009 [id number] Imer Lieberman MD [facility] [address] [place] [address] JOSE RETANAYAKOV RICHARD [address]-217 4 01/24/2021 14:50:22 01/25/2021 08:16:40 Idiopathic non-familial dystonia 511757958 G24.1 Dystonia 74513924 G24.3 Facial spasm 98982373 G5 1.39 Migraine without aura 56 251931 G43.009 [id number] Imer Lieberman MD [facility] [address] [place] [address] JOSE RETANAYAKOV RICHARD [address]5947-064 4 02/28/2021 11:51:24 02/28/2021 12:29:37 Idiopathic non-familial dystonia 508937395 G24.1 Dystonia 15652747 G24.3 Facial spasm 86386474 G5 1.39 Migraine without aura 56 093909 G43.009 [id number] Imer Lieberman MD [facility] [address] [place] [address] JOSE RETANAYAKOV RICHARD [address]-316 4 04/25/2021 12:22:14 04/26/2021 07:40:15 Idiopathic non-familial dystonia 701848868 G24.1 Dystonia 57360471 G24.3 Facial spasm 10380062 G5 1.39 Migraine without aura 56 179778 G43.009 [id number] Imer Lieberman MD [facility] [address] [place] [address] JOSE RETANAYAKOV RICHARD [address] 4 05/29/2021 10:02:07 05/30/2021 15:05:44 Idiopathic non-familial dystonia 357203499 G24.1 Dystonia 86257692 G24.3 Facial spasm 25959643 G5 1.39 Migraine without aura 56 677059 G43.009 Migraine with aura 24861 06 G43.109 [id number] Imer Lieberman MD [facility] [address] [place] [address] Gordo MONTERO YAKOV 96517-531 4 07/12/2021 08:51:06 08/03/2021 15:14:49 Idiopathic non-familial dystonia 292003007 G24.1 Dystonia 27275817 G24.3 Facial spasm 84708016 G5 1.39 Migraine without aura 56 776501 G43.009 [id number] Imer Lieberman MD [facility] [address] [place] [address] Gordo MONTERO YAKOV 48813-231 4 07/25/2021 13:52:53 07/25/2021 16:35:44 Idiopathic non-familial dystonia 885582234 G24.1 Dystonia 97847311 G24.3 Facial spasm 37234042 G5 1.39 Migraine without aura 56 837174 G43.009 [id number] Imer Lieberman MD [facility] [address] [place] [address] Gordo MONTEROYAKOV [address]531 4 09/05/2021 14:01:17 09/10/2021 10:57:43 Idiopathic non-familial dystonia 645418764 G24.1 Dystonia 83558226 G24.3 Facial spasm 98484580 G5 1.39 Migraine without aura 56 956461 G43.009 [id number] Imer Lieberman MD [facility] [address] [place] [address] JOSE RETANAYAKOV RICHARD [address]-671 4 11/07/2021 12:25:50 11/07/2021 18:58:37 Idiopathic non-familial dystonia 774850240 G24.1 Dystonia 39944761 G24.3 Facial spasm 41380595 G5 1.39 Migraine without aura 56 933291 G43.009 [id number] Imer Lieberman MD [facility] [address] [place] [address] Gordo RETANAWINSTONYAKOV RICHARD 93510-650 4 12/06/2021 13:06:48 12/10/2021 15:27:19 Idiopathic non-familial dystonia 498533017 G24.1 Dystonia 14561809 G24.3 Facial spasm 38606987 G5 1.39 Migraine without aura 56 738643 G43.009 [id number] Imer Lieberman MD [facility] [address] [place] [address] Gordo YAKOV MONTERO 08662-061 4 02/13/2022 07:56:35 02/13/2022 09:24:50 Idiopathic non-familial dystonia 835165570 G24.1 Dystonia 16969677 G24.3 Facial spasm 41992985 G5 1.39 Migraine without aura 56 576185 G43.009 [id number] Imer Lieberman MD [facility] [address] [place] [address] Gordo YAKOV MONTERO 04278-775 4 03/14/2022 13:58:56 03/19/2022 09:35:39 Idiopathic non-familial dystonia 252293096 G24.1 Dystonia 73185541 G24.3 Facial spasm 96358525 G5 1.39 Migraine without aura 56 382417 G43.009 7012 Imer Lieberman MD [facility] [address] [place] [address] Gordo YAKOV MONTERO 59092-656 4 05/16/2022 11:40:07 05/16/2022 15:55:55 Idiopathic non-familial dystonia 240123944 G24.1 Dystonia 63551749 G24.3 Facial spasm 97480167 G5 1.39 Migraine without aura 56 018605 G43.009 [id number] Imer Lieberman MD [facility] [address] [place] [address] Gordo YAKOV MONTERO 93356-281 4 07/09/2022 13:59:24 07/25/2022 12:39:21 Idiopathic non-familial dystonia 041435866 G24.1 Dystonia 70524799 G24.3 Facial spasm 37964406 G5 1.39 Migraine without aura 56 435859 G43.009 Migraine with aura 94004 06 G43.109 [id number] Imer Lieberman MD [facility] [address] [place] [address] Gordo YAKOV MONTERO 05998-014 4 08/14/2022 15:04:31 08/14/2022 17:43:36 Idiopathic non-familial dystonia 203110088 G24.1 Dystonia 14262840 G24.3 Facial spasm 26632607 G5 1.39 Migraine without aura 56 439190 G43.009 [id number] ENRIKE NORTON PA-C [facility] [address] [place] [address] B YAKOV MONTERO 35493-905 4 10/01/2022 13:45:47 10/03/2022 11:40:32 Idiopathic non-familial dystonia 524878892 G24.1 Dystonia 67200619 G24.3 Facial spasm 67624398 G5 1.39 Migraine without aura 56 556356 G43.009 Migraine with aura 35475 06 G43.109 [id number] Imer Lieberman MD [facility] [address] [place] [address] JOSE RETANAHILARY YAKOV 89271-100 4 10/29/2022 10:18:41 11/04/2022 15:06:43 Idiopathic non-familial dystonia 563640006 G24.1 Dystonia 33530523 G24.3 Facial spasm 90603663 G5 1.39 Migraine without aura 56 999179 G43.009 Migraine with aura 74966 06 G43.109 [id number] ENRIKE NORTON PA-C [facility] [address] [place] [address] JOSE RETANAYAKOV RICHARD 50266-831 4 11/28/2022 13:27:59 12/02/2022 15:28:22 Idiopathic non-familial dystonia 099216261 G24.1 Dystonia 34059854 G24.3 Facial spasm 31712441 G5 1.39 Migraine without aura 56 295782 G43.009 Migraine with aura 55515 06 G43.109 [id number] Imer Lieberman MD [facility] [address] [place] [address] JOSE MONTERO YAKOV 92054-617 4 12/19/2022 11:07:15 12/23/2022 16:34:25 Idiopathic non-familial dystonia 919122332 G24.1 Dystonia 71994799 G24.3 Facial spasm 99519706 G5 1.39 Migraine without aura 56 211776 G43.009 Migraine with aura 32544 06 G43.109 [id number] Imer Lieberman MD [facility] [address] [place] [address] JOSE Gordo RETANAWINSTONYAKOV RICHARD 39450-495 4 01/23/2023 09:21:21 02/10/2023 16:21:14 Idiopathic non-familial dystonia 504503828 G24.1 Dystonia 01855970 G24.3 Facial spasm 27822479 G5 1.39 Migraine without aura 56 251511 G43.009 Migraine with aura 49083 06 G43.109 [id number] Imer Lieberman MD [facility] [address] [place] [address] Gordo MONTERO YAKOV 54899-418 4 03/18/2023 10:30:58 03/19/2023 17:32:28 Idiopathic non-familial dystonia 678413447 G24.1 Dystonia 45505879 G24.3 Facial spasm 89844011 G5 1.39 Migraine without aura 56 949560 G43.009 Migraine with aura 45378 06 G43.109 [id number] ENRIKE NORTON PA-C [facility] [address] [place] [address] Gordo MONTERO YAKOV 03263-147 4 04/24/2023 10:15:35 04/30/2023 10:38:58 Idiopathic non-familial dystonia 181000040 G24.1 Dystonia 76598528 G24.3 Facial spasm 97974222 G5 1.39 Migraine without aura 56 645805 G43.009 Migraine with aura 92196 06 G43.109 [id number] Imer Lieberman MD [facility] [address] [place] [address] Gordo RETANAWINSTON, YAKOV 24750-782 4 05/28/2023 09:14:15 05/29/2023 16:35:04 Idiopathic non-familial dystonia 967888781 G24.1 Dystonia 45165027 G24.3 Facial spasm 63203076 G5 1.39 Migraine without aura 56 624114 G43.009 Migraine with aura 24296 06 G43.109 [id number] Imer Lieberman MD [facility] [address] [place] [address] Gordo RETANAWINSTONYAKOV RICHARD 22516-425 4 10/07/2023 09:31:55 10/13/2023 13:14:20 Idiopathic non-familial dystonia 501480946 G24.1 Dystonia 86821344 G24.3 Facial spasm 80999273 G5 1.39 Migraine without aura 56 983562 G43.009 Migraine with aura 97902 06 G43.109 [id number] Imer Lieberman MD [facility] [address] [place] [address] Gordo RETANAWINSTON, YAKOV 78666-884 4 11/11/2023 10:36:51 11/11/2023 11:43:45 Idiopathic non-familial dystonia 939990138 G24.1 Dystonia 64092002 G24.3 Facial spasm 52137205 G5 1.39 Migraine without aura 56 645345 G43.009 Migraine with aura 66240 06 G43.109 [id number] Imer Lieberman MD [facility] [address] [place] [address] [place] [address]-068 4 12/10/2023 11:11:30 12/10/2023 12:19:37 Idiopathic non-familial dystonia 188881677 G24.1 Dystonia 56120204 G24.3 Facial spasm 50284131 G5 1.39 Migraine without aura 56 709922 G43.009 Migraine with aura 01192 06 G43.109 [id number] Imer Lieberman MD [facility] [address] [place] [address] [place] [address] 4 03/23/2024 11:39:14 03/23/2024 17:16:47 Idiopathic non-familial dystonia 063071849 G24.1 Dystonia 07530237 G24.3 Facial spasm 38746555 G5 1.39 Migraine without aura 56 030615 G43.009 Migraine with aura 13080 06 G43.109 Health Concerns Section Related Observation LastModified by Organization Detai ls LastModified Time None Recorded Concern Status LastModified by Organization Details LastModified Time None Recorded Advance Directives Directive None Recorded Payers Encounter Date Sequence Insurance Name Policy Number Policy Leone Covered Member ID Leone Member ID Guarantor Name 05/28/2023 1 [facility] [place] Ute Ashlyn [id number] Ute Ashlyn 10/07/2023 1 [facility] [place] Ute Ashlyn [id number] Ute Ashlyn 11/11/2023 1 [facility] [place] Ute Ashlyn [id number] Ute Ashlyn 12/10/2023 1 [facility] [place] Ute Ashlyn [id number] Ute Ashlyn 03/23/2024 1 [facility] [place] Ute Ashlyn [id number] Ute Ashlyn Notes Date Note Type Note [...] She is working with Andreina Greer APRN, [facility] comprehensive pain management center and will be [...] but she has also been to her analysis manager/ophthalm ologist and had her glasses changed but [...] She came in later that day to fern picker the Aimovig 70 mg/mL sample and [...] with psychiatry on this. Imer Lieberman MD [address] [place] [address] [place], [phone], [facility] 05/28/2023 13:26:47 10/07/2023 text/html Follow-up breakthrough [...] She is working with Andreina Greer APRN, [facility] comprehensive pain management center and will be [...] but she has also been to her analysis manager/ophthalm ologist and had her glasses changed but [...] She came in later that day to fern picker the Aimovig 70 mg/mL sample and [...] with psychiatry on this. Imer Lieberman MD [address] [place] [address] Winston Caro YAKOV, [phone], [facility] 10/13/2023 11:40:53 11/11/2023 text/html Follow-up of [...] She is working with Andreina Greer APRN, [facility] comprehensive pain management center and will be [...] but she has also been to her analysis manager/ophthalm ologist and had her glasses changed but [...] She came in later that day to fern picker the Aimovig 70 mg/mL sample and [...] with psychiatry on this. Imer Lieberman MD [address] [place] [address], [phone], [facility] 11/11/2023 11:32:39 12/10/2023 text/html Follow-up of [...] She is working with Andreina Greer APRN, [facility] comprehensive pain management center and will be [...] but she has also been to her analysis manager/ophthalm ologist and had her glasses changed but [...] She came in later that day to fern picker the Aimovig 70 mg/mL sample and [...] with psychiatry on this. Imer Lieberman MD [address] [place] [address] [place], [phone], [facility] 12/10/2023 12:17:54 03/23/2024 text/html Follow-up of [...] She is working with Andreina Greer APRN, [facility] comprehensive pain management center and will be [...] but she has also been to her analysis manager/ophthalm ologist and had her glasses changed but [...] She came in later that day to fern picker the Aimovig 70 mg/mL sample and [...] with psychiatry on this. Imer Lieberman MD [address] [place] [address] [place], [address], [facility] 03/23/2024 13:04:47 OBGyn Episode No OBEpisode recorded.
== END 2024-08-30 11:28 | disposition home or self-care (01) ==
LOC: HO.MAMMO 11:27
PROVIDERS: PCP Internal Medicine; Visit Provider Internal Medicine
DX: Z12.31 Encounter for screening mammogram for malignant neoplasm of breast (principal)
CPT/HCPCS: 77063; 77067

== ENCOUNTER → 2024-08-30 11:30 | Outpatient (BNV) | payer OTHER, SELFPAY | PROVIDERS: PCP Internal Medicine; Visit Provider Internal Medicine | DX: Z12.31 Encounter for screening mammogram for malignant neoplasm of breast (principal) | CPT/HCPCS: 77063; 77067 ==

== ENCOUNTER 2024-08-31 06:32 | Outpatient (REF) | payer OTHER, SELFPAY ==
--- NOTE | ~2024-08-31 | FL_ITS ---
EXAMINATION: FL GUIDANCE ONLY HISTORY: M47.816 - Spondylosis without myelopathy or radiculopathy, lumbar region COMPARISON: None available. TECHNIQUE: Fluoroscopy time: 0.5 minutes. Cumulative Dose: 17.6 mGy. DAP: 0.307 mGym2 Images: 12. FINDINGS: Images demonstrate needles and contrast material in the regions of the bilateral L3-4, L4-5, and L5-S1 facet joints. FL/FL guidance in treatment room IMPRESSION: Fluoroscopy during procedure. Please see procedure report for additional information. Electronically signed by: Raymond Ontiveros MD 09/03/2024 08:57 AM EST
== END 2024-08-31 06:33 | disposition home or self-care (01) ==
LOC: CF 06:32
PROVIDERS: Visit Provider Anesthesiology
DX: M47.816 Spondylosis without myelopathy or radiculopathy, lumbar region (principal)
CPT/HCPCS: 64493; 64494; J2003; J2795; Q9967

== ENCOUNTER 2024-08-31 09:51 | Outpatient (AMB) | payer OTHER, SELFPAY ==
[2024-08-31 10:07] VITALS: BP 125/70; PULSE 52; O2SAT 100
--- NOTE | 2024-08-31 10:07 | MHC.OFFVIS ---
Vital Signs 08/31/24 10:07 08/31/24 11:11 BP 125/70 129/78 Blood Pressure Location Lt brachial Rt brachial Position Sitting Sitting Pulse 52 53 Pulse Source Pulse Oximeter Pulse Oximeter Pulse Oximetry (%) 100 100 Oxygen Delivery Method Room Air Room Air Comment Pre-Op Post-Op Intake Visit Reasons: BILATERAL DIAGNOSTIC L3, L4, DRL5 MBB Allergies meclizine Adverse Reaction (Verified 08/26/24 11:09) tachycardia metoclopramide Adverse Reaction (Verified 08/26/24 11:09) tachycardia PFSH Medical History Overactive bladder Diarrhea Morbid obesity with BMI of 40.0-44.9, adult Biliary dyskinesia Elevated TSH Obesity (BMI 30-39.9) Depression Anxiety Insomnia Obstructive sleep apnea Vitamin D deficiency 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 myelopathy or radiculopathy Elevated LFTs Allergic rhinitis Asthma Migraine Pure hypercholesterolemia Benign essential hypertension Diabetes mellitus IBS (irritable bowel syndrome) Gastroparesis Surgical History History of surgical removal of skin lesion (07/26/24) Status post epidural steroid injection History of cardiac cath Hx of tubal ligation Hx of colonoscopy (~03/2018) Hx of endoscopy History of surgery of head Hx of hysterectomy (~08/2011) Family History Father Diabetes Hypertension Heart problem Mother Arthritis Diabetes Hypertension Maternal Grandmother Breast cancer, Onset Age: 72 Family/Other Diabetes Hypertension Heart problem Social History Household Members: Spouse Housing: House Are you a primary home day care provider to a significant other at home: No Do you presently have visiting nurse or other home services: No Alcohol intake: current Alcohol intake frequency: former alcohol drinker Comment: NOT INDICATED Patient Tobacco Use Status: Never used Tobacco e-Cigarette/Vaping Use: Never Used Second Hand Smoke Exposure: No Advance Directives Date on File: 03/20/16 service: No Current occupational status: disabled Cognitive needs: No Hearing needs: No Vision needs: Yes Female Reproductive History Menstrual Age of Menarche: 13 Physical Exam Vital Signs: Last Vital Signs Pulse 53 08/31/24 11:11 BP 129/78 08/31/24 11:11 Pulse Ox 100 08/31/24 11:11 Oxygen Delivery Method Room Air 08/31/24 11:11 Assessment & Plan Assessment & Plan (1) 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 myelopathy or radiculopathy: Code(s): M47.816 - Spondylosis without myelopathy or radiculopathy, lumbar region Category: Medical Plan Diagnostic bilateral medial branch block L3, L4, dorsal ramus L5. Informed consent was thoroughly explained to the patient before the procedure.? The patient came to the operating room.? She was positioned prone on operating table with a pillow under her abdomen.? Time-out was performed delineating correct site and side of the procedure, nature of the injection, name and date of of the patient. The lower back and upper buttocks of the patient was prepped with ChloraPrep and draped with sterile utility towels.? C-arm was brought over the operating field and the point of interest were delineated as confluence of the superior articular process of L4 vertebra and L5 vertebra bilaterally with corresponding transverse process bilaterally., as well as confluence of the superior articular process of S1 on the bilaterally with sacral ala bilaterally. The point of interest projection to the skin was injected with small amount of mixture of lidocaine 2% and ropivacaine 0.5%. After that 22 gauge 3-1/2 inch needle was driven to point of interest in tunnel vision fashion. When needle gently contacted the bone injection of the contrast was performed delineating no intravascular and no intrathecal spread of the contrast. After that injection of the small amount of ropivacaine 0.5% less than 1 cc into each target site was performed. Upon completion of the injections the needle was removed sterile Band-Aids were applied. The patient tolerated procedure well. She was given a pain diary to complete after the procedure. Orders: Orders FL guidance in treatment room Today M47.816 - Spondylosis without myelopathy or radiculopathy, lumbar region Coding Level of Care Code Procedure Only Diagnoses 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 myelopathy or radiculopathy M47.816
[2024-08-31 11:11] VITALS: BP 129/78; PULSE 53; O2SAT 100
--- OUTSIDE RECORDS SUMMARY | 2024-08-31 11:25 | XMS_ITS | Encounter Summary ---
Author Organization [facility] Address [address] [place] [address] Care Team Providers Care Can Closing Machine Tender Name Role Phone Unavailable Primary Care Provider Unavailabl e Encounter Details Date Type Department Care Team (Latest Contact Info) Description 05/17/[address] [facility] CONVERSIONS Dental, Provider, DDS Social [...]
--- OUTSIDE RECORDS SUMMARY | 2024-08-31 11:25 | XMS_ITS | Clinical Summary ---
Author Organization [facility], Address [address] [place] [address] [place] [address] Phone Care Team Providers Care Bleach Liquor Maker Name Role Phone Villa Lr MD Primary Care Provider +1- [phone] Allergies No known active allergies Medications clonazePAM [...] D BEFORE MEALS DIRECTED. 1 Active Creon [id number] units capsule TOME 1 C PSULA POR [...] Visit [facility] [place], [address] [place] [address] Abdulkadir Osorio MD [address] [place] [address] [...] Glucose 105(H) 70 - 99 mg/dL [facility] Uric Acid 3.8 2.6 - 6.2 mg/dL [facility] Comment:Therapeutic target f or gout patients: <6.0 BUN 11 6 - 24 mg/dL [facility] Creatinine 0.58 0.57 - 1.00 mg/dL [facility] eGFR CKD-EPI CR 2020 112 >59 mL/min/1.7 3 [facility] BUN/Creatinine Ratio 19 9 - 23 [facility] Sodium 139 134 - 144 mmol/L [facility] Potassium 4.3 3.5 - 5.2 mmol/L [facility] Chloride 103 96 - 106 mmol/L [facility] Bicarbonate (CO2) 22 20 - 29 mmol/L [facility] Anion Gap 14.0 10.0 - 18.0 mmol/L [facility] Calcium 9.9 8.7 - 10.2 mg/dL [facility] Total Protein 6.6 6.0 - 8.5 g/dL [facility] Albumin 4.2 3.9 - 4.9 g/dL [facility] Globulin 2.4 1.5 - 4.5 g/dL [facility] Phosphorus 3.4 3.0 - 4.3 mg/dL [facility] 07/05/2024 11:4 4 AM EST 07/05/2024 us Abdulkadir Osorio MD LAB [id number] OLICITED RESULTS Final Result [facility] [address] [place] [address] * Microscopic Examination (07/05/2024 11:44 AM EST) WBC, Urine None seen 0 - 5 /hpf [facility] RBC, Urine None seen 0 - 2 /hpf [facility] Squamous Epithelial, Urine 0-10 0 - 10 /hpf [facility] Casts None seen None seen /lpf [facility] Bacteria, Urine None seen None seen/Few [facility] 07/05/2024 11:4 4 AM EST 07/05/2024 Abdulkadir Osorio MD LAB MICROBIOLOGY - GENERAL ORD ERABLES Final Result [facility] [address] [place] [address] * (ABNORMAL) Iron Panel (Fe, TIBC, TSAT) (07/05/2024 11:44 AM EST) TIBC 385 250 - 450 ug/dL [facility] UIBC 348 131 - 425 ug/dL [facility] Iron 37 27 - 159 ug/dL [facility] Iron Saturation (TSat) 10(L) 15 - 55 % [facility] 07/05/2024 11:4 4 AM EST 07/05/2024 Abdulkadir Osorio MD LAB BLOOD ORDERABLES Final Res ult [facility] [address] [place] [address] * Urine Albumin / Creatinine Ratio (07/05/2024 11:44 AM EST) Creatinine, Ur 55.2 Not Estab. mg/[facility] Urine Microalbumin <3.0 Not Estab. ug/mL [facility] Microalbumin/Crea tinine Ratio <5 0 - 29 mg/g creat [facility] Comment: ? Normal: ?0 - ??29 ? Moderately increased: 30 - 300 ? Severely increased: ? >300 07/05/2024 11:4 4 AM EST 07/05/2024 us Abdulkadir Osorio MD LAB URINE ORDERABLES Final Res ult [facility] [address] [place] [address] * Vitamin D 25 Hydroxy (07/05/2024 11:44 AM EST) Vitamin D, 25-OH, Total 30.0 30.0 - 100.0 ng/mL [facility] Comment: Vitamin D deficiency has been defined by the [place] of [employer] and an Endocrine Society practice guideline as a level of serum 25-OH vitamin D less than 20 ng/mL (1,2). The Endocrine Society went on to further define vitamin D insufficiency as a level between 21 and 29 ng/mL (2). 1. IOM ([place] [employer]). 2010. Dietary reference ?? intakes for calcium and D. [place]: The ?? National AcademSolar [employer] Press. 2. Levy MF, [place], Ousmane OCAMPO, et al. ?? Evaluation, treatment, and prevention of vitamin D ?? deficiency: an Endocrine Society clinical practice ?? guideline. JCEM. 2010; 96(7):1911-30. 07/05/2024 11:4 4 AM EST 07/05/2024 Abdulkadir Osorio MD LAB BLOOD ORDERABLES Final Res ult [facility] [address] [place] [address] * (ABNORMAL) Urinalysis with microscopic (07/05/2024 11:44 AM EST) Specific [place], Urine 1.011 1.005 - 1.030 [facility] pH Urine 8.0(H) 5.0 - 7.5 [facility] Color, Urine Yellow Yellow [facility] Appearance Urine Clear Clear [facility] WBC Esterase Urine Negative Negative [facility] [phone] Protein, Ur Negative Negative/Tra ce [facility] [phone] Glucose, Ur Negative Negative [facility] Ketones, Urine Negative Negative [facility] [phone] Blood Urine Negative Negative [facility] Bilirubin Urine Negative Negative [facility] Urobilinogen Urine 0.2 0.2 - 1.0 mg/dL [facility] Nitrite, Urine Negative Negative [facility] [phone] Microscopic Examination Comment [facility] Comment:Microscopic follows if indicated. Other Microsc. Observations See below: [facility] Comment:Microscopic was casper cated and was performed. 07/05/2024 11:4 4 AM EST 07/05/2024 Abdulkadir Osorio MD LAB URINE ORDERABLES Final Res ult [facility] [address] [place] [address] * (ABNORMAL) CBC and Differential (07/05/2024 11:44 AM EST) WBC 7.6 3.4 - 10.8 x10E3/uL [facility] RBC 4.00 3.77 - 5.28 x10E6/uL [facility] Hemoglobin 11.7 11.1 - 15.9 g/dL [facility] Hematocrit 38.1 34.0 - 46.6 % [facility] MCV 95 79 - 97 fL [facility] MCH 29.3 26.6 - 33.0 pg [facility] MCHC 30.7(L) 31.5 - 35.7 g/dL [facility] RDW 13.1 11.7 - 15.4 % [facility] Platelets 284 150 - 450 x10E3/uL [facility] Neutrophils Relative 61 Not Estab. % [facility] Lymphocytes Relative 30 Not Estab. % [facility] Monocytes 8 Not Estab. % [facility] Eosinophils Relative 1 Not Estab. % [facility] Basophils Relative 0 Not Estab. % [facility] Neutrophils Absolute 4.6 1.4 - 7.0 x10E3/uL [facility] Lymphocytes Absolute 2.3 0.7 - 3.1 x10E3/uL [facility] Monocytes Absolute 0.6 0.1 - 0.9 x10E3/uL [facility] Eosinophils Absolute 0.1 0.0 - 0.4 x10E3/uL [facility] Basophils Absolute 0.0 0.0 - 0.2 x10E3/uL [facility] Immature Granulocytes 0 Not Estab. % [facility] Immature Grans (Absolute) 0.0 0.0 - 0.1 x10E3/uL [facility] 07/05/2024 11:4 4 AM EST 07/05/2024 Abdulkadir Osorio MD LAB BLOOD ORDERABLES Final Res ult [facility] [address] [place] [address] * PTH, Intact (07/05/2024 11:44 AM EST) PTH 20 15 - 65 pg/mL [facility] 07/05/2024 11:4 4 AM EST 07/05/2024 Abdulkadir Osorio MD LAB BLOOD ORDERABLES Final Res ult Performing Organization Address City/[facility]/ZIP Co de Phone Number [facility] [address] [place] [address] * Magnesium (07/05/2024 11:44 AM EST) Magnesium 1.9 1.6 - 2.3 mg/dL [facility] 07/05/2024 11:4 4 AM EST 07/05/2024 Abdulkadir Osorio MD LAB BLOOD ORDERABLES Final Res ult [facility] [address] [place] [address] * (ABNORMAL) Hemoglobin A1c (07/05/2024 11:44 AM EST) Hemoglobin A1C 7.4(H) 4.8 - 5.6 % [facility] Comment: ? Prediabetes: 5.7 - 6.4 ? Diabetes: >6.4 ? Glycemic control for adults with diabetes: <7.0 07/05/2024 11:4 4 AM EST 07/05/2024 Abdulkadir Osorio MD LAB BLOOD ORDERABLES Final Res ult Performing Organization Address City/[facility]/ZIP Co de Phone Number [facility] [address] [place] [address] * (ABNORMAL) Ferritin (07/05/2024 11:44 AM EST) Ferritin 11(L) 15 - 150 ng/mL [facility] 07/05/2024 11:4 4 AM EST 07/05/2024 Abdulkadir Osorio MD LAB BLOOD ORDERABLES Final Res [facility] [address] [place] [address] from Last 3 Months Insurance [address] [place] [address] [facility] Care Teams Bleach Liquor Maker Relationship Specialty Start Date End Date Villa Lr MD [address] [place] [address] PCP - General 05/04/19
--- OUTSIDE RECORDS SUMMARY | 2024-08-31 11:25 | XMS_ITS | Encounter Summary ---
Author Organization [facility], Address [address] [place] [address] Phone Care Team Providers Care Suspender Maker Name Role Phone Villa Lr MD Primary Care Provider +1- [phone] Encounter Details Date Type Department Care Team (Late st Contact Info) Description 06/16/2023 Documentation Only [facility] [address] [place] [address] Abdulkadir Osorio MD [address] [place] [address] [place] [address] Social History Tobacco Use Types [...] [facility] [address] [place] [address] Abdulkadir Osorio MD [address] [place] [address] [place] [address] documented as of this encounter Visit Diagnoses Not on filedocumented in this encounter Care Teams Suspender Maker Relationship Specialty Start Date End Date Villa Lr MD [address] [place] [address] PCP - General 05/04/19 documented as of this encounter
--- OUTSIDE RECORDS SUMMARY | 2024-08-31 11:25 | XMS_ITS | Clinical Summary ---
Author Organization [employer] Address [address] [place] [address] Care Team Providers Care Store Warehouse Associate Name Role Phone Unavailable Primary Care Provider [...]
--- OUTSIDE RECORDS SUMMARY | 2024-08-31 11:25 | XMS_ITS | Encounter Summary ---
Author Organization [facility] Address [address] [place] [address] Care Team Providers Care Summer Intern Name Role Phone Unavailable Primary Care Provider Unavailabl e Encounter Details Date Type Department Care Team (Latest Contact Info) Description 03/18/2019 Abstract [facility] CONVERSIONS Dental, Provider, DDS Social History [...]
--- OUTSIDE RECORDS SUMMARY | 2024-08-31 11:25 | XMS_ITS | Encounter Summary ---
Author Organization [facility], Address [address] [place] [address] Phone Care Team Providers Care Dairy Cattle Farmer Name Role Phone Villa Lr MD Primary Care Provider +1- [phone] Encounter Details Date Type Department Care Team (Late st Contact Info) Description 06/10/2022 Documentation Only [facility] [address] [place] [address] Abdulkadir Osorio MD [address] [place] [address] [place] [address] Social History Tobacco Use Types [...] Visit [facility] [address] [place] [address] Abdulkadir Osorio MD [address] [place] [address] [place] [address] documented as of this encounter Visit Diagnoses Not on filedocumented in this encounter Care Teams Dairy Cattle Farmer Relationship Specialty Start Date End Date Villa Lr MD [address] [place] [address] PCP - General 05/04/19 documented as of this encounter
== END 2024-08-31 11:13 | disposition home or self-care (01) ==
LOC: HO.PMCPRC 09:51
PROVIDERS: PCP Internal Medicine; Visit Provider Anesthesiology
DX: M47.816 Spondylosis without myelopathy or radiculopathy, lumbar region (principal)
CPT/HCPCS: 64493; 64494

== ENCOUNTER 2024-09-07 10:46 | Outpatient (AMB) | payer OTHER, SELFPAY ==
--- NOTE | 2024-09-07 11:00 | MHC.OFFVIS ---
Vital Signs 09/07/24 11:04 Height 5 ft 4 in Weight 225 lb 6 oz BMI 38.7 BP 121/68 Blood Pressure Location Lt brachial Position Sitting Pulse 60 Pulse Source Pulse Oximeter Pulse Oximetry (%) 99 Oxygen Delivery Method Room Air Intake Visit Reasons: BILATERAL DIAGNOSTIC L3, L4, DRL5 MBB Intake Note: Pain today 03/09 Terminal Operator Required: No Accompanied by: Spouse Allergies meclizine Adverse Reaction (Verified 09/07/24 11:04) tachycardia metoclopramide Adverse Reaction (Verified 09/07/24 11:04) tachycardia HPI Comments Details: Patient presents today to assess response to bilateral diagnostic L3-L4 DR L5 MBB on 08/31/[address] Escalante. Patient reports 0% pain relief since procedure as post-procedural pain scores remained high per patient and her post procedure pain diary. A prior epidural steroid injection at L5-S1 provided significant temporary relief of her radicular pain and she would like to repeat this again. Patient has multifactorial back pain causes, including arthritis and vertebrogenic pain possibly due to modic endplate changes, especially at L5-S1. She experiences exacerbated pain levels during daily activities like bending and prolonged standing. Pain management has also included baclofen for muscle spasms. Despite these interventions, the patient reports persistent symptoms impacting her quality of life and daily activities. Denies any weakness, food drop, bladder or bowel dysfunction, or saddle anesthesia. Denies any recent cough, cold, infection, fever, bladder or bowel dysfunction, saddle anesthesia, weakness, foot drop or other significant changes in medical history since last office visit. - Onset & Timing: Chronic; previously treated with injections. - Quality & Character: Multifactorial; component possibly vertebrogenic. - Location: Low back pain, focal at the L5-S1 area. - Radiation: Notably localized; radicular components treated with previous injections. - Exacerbating Factors: Bending, prolonged standing. - Relieving Factors: Prior transforaminal injections provided temporary relief. - Affect: Pain significantly affecting daily activities; management is ongoing. - Analgesia: Baclofen 10mg recently increased to 20mg for muscle spasms. - Adverse Effects: No currently reported adverse effects from baclofen. - Activities of Daily Living: Pain impacts capabilities during bending; intends to address this with updated MRI and potential reinjection. - Aberrant Drug Related Behaviors: None reported; patient follows current prescription as needed. Past Procedures: 08/31/24: Bilateral Diagnostic L3-L4 DR L5 MBB- 0% pain relief 07/28/24: Right knee Synvisc injection-90% ongoing pain relief 03/31/24: Left knee cortisone injection at [facility]--good pain relief 05/01/23: Bilateral L5-S1 TFESI-70% pain relief for for 6 months 10/09/22: Bilateral L5-S1 TFESI-80% pain relief for 6 months PFSH Medical History Overactive bladder Diarrhea Morbid obesity with BMI of 40.0-44.9, adult Biliary dyskinesia Elevated TSH Obesity (BMI 30-39.9) Depression Anxiety Insomnia Obstructive sleep apnea Vitamin D deficiency 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 myelopathy or radiculopathy Elevated LFTs Allergic rhinitis Asthma Migraine Pure hypercholesterolemia Benign essential hypertension Diabetes mellitus IBS (irritable bowel syndrome) Gastroparesis Surgical History History of surgical removal of skin lesion (07/26/24) Status post epidural steroid injection History of cardiac cath Hx of tubal ligation Hx of colonoscopy (~03/2018) Hx of endoscopy History of surgery of head Hx of hysterectomy (~08/2011) Family History Father Diabetes Hypertension Heart problem Mother Arthritis Diabetes Hypertension Maternal Grandmother Breast cancer, Onset Age: 72 Family/Other Diabetes Hypertension Heart problem Social History Household Members: Spouse Housing: House Are you a primary critical care nurse specialist to a significant other at home: No Do you presently have visiting nurse or other home services: No Alcohol intake: current Alcohol intake frequency: former alcohol drinker Comment: NOT INDICATED Patient Tobacco Use Status: Never used Tobacco e-Cigarette/Vaping Use: Never Used Second Hand Smoke Exposure: No Advance Directives Date on File: 03/20/16 service: No Current occupational status: disabled Cognitive needs: No Hearing needs: No Vision needs: Yes Female Reproductive History Menstrual Age of Menarche: 13 Review of Systems Const All systems reviewed & are unremarkable except as noted in HPI and below Musc Details: Reports chronic low back pain, worsened by bending and standing. Physical Exam Vital Signs: Last Vital Signs Pulse 60 09/07/24 11:04 BP 121/68 09/07/24 11:04 Pulse Ox 99 09/07/24 11:04 Oxygen Delivery Method Room Air 09/07/24 11:04 BMI result Body Mass Index 38.7 General: Appears afebrile. No acute distress. Alert and oriented. Mood and affect appropriate. Follows and participates in conversation appropriately. Respiratory effort is unlabored. No cough. Able to transition from sit to stand unassisted. Ambulates with slightly antalgic gait without limping. Back/Spine/Pelvis Other: Limited lumbar ROM due to pain. Lumbar extension and axial rotation reproduces mild to moderate pain. Flexion forward and bending is limited and reproduces moderate to severe pain. Positive facet loading bilaterally. Demonstrates 5/5 strength of quadriceps on the right and 4/5 on the left as well as flexion/dorsiflexion of bilateral feet against resistance. Straight leg rise with dorsiflexion is negative bilaterally. DTR intact, patellar reflex diminished bilaterally. Alessandro test positive bilaterally. No groin pain with I/E hip rotations bilaterally. Valsalva maneuver is negative. Cervical Spine: cervical ROM normal and No Cervical spine tenderness Thoracic/Lumbar Spine: thoracic and lumbar spine normal to inspection, No Thoracic/lumbar spine scar(s), Lasegue's sign negative, straight leg raise negative bilaterally, pain with thoraco-lumbar ROM, paraspinal muscle tenderness, thoraco-lumbar ROM limited, No thoracic spinal tenderness and lumbar spinal tenderness at L4 and at L5 Pelvis: buttock tenderness bilaterally Sacroiliac joints: bilaterally tender to palpation Extrem General: Yes capillary refill normal, Yes no clubbing, cyanosis or edema and Yes no calf tenderness Results Reviewed Results Reviewed: MR LUMBAR SPINE WITHOUT CONTRAST 02/26/23 CLINICAL INFORMATION: Lower back pain and bilateral leg pain COMPARISON: MR lumbar spine 09/14/2021 FINDINGS: Normal anatomic alignment. No suspicious marrow signal or focal osseous lesion. Mixed type I and type II endplate marrow signal changes at L5-S1. The vertebral body heights are maintained. Moderate disc desiccation and height loss at L5-S1. The conus medullaris terminates at the level of L2. The distal spinal cord is normal in appearance. The cauda equina nerve roots appear normal. Redemonstration of thin fatty infiltration of the filum terminale. No significant abnormalities of the paraspinal musculature. Limited evaluation of the intra-abdominal structures without significant abnormalities. Partially visualized large left renal cyst. The abdominal aorta is of normal contour and caliber. SPINAL LEVELS: T12-L1: No significant spinal canal or neural foraminal narrowing L1-L2: No significant spinal canal or neuroforaminal narrowing. L2-L3: No significant spinal canal or neuroforaminal narrowing. L3-L4: No significant spinal canal or neuroforaminal narrowing. L4-L5: No significant spinal canal or neuroforaminal narrowing. Mild facet arthropathy. L5-S1: Broad-based disc bulge, mild facet arthropathy. Stable subarticular zone narrowing with possible contact of the traversing S1 nerve roots and mild to moderate bilateral neural foraminal narrowing with abutment of the exiting L5 nerve roots. IMPRESSION: Stable degenerative disc and facet disease at L5-S1 with subarticular zone narrowing with possible contact of the traversing S1 nerve roots and mild to moderate bilateral neural foraminal narrowing with abutment of the exiting L5 nerve roots. XR LUMBOSACRAL SPINE 07/28/20 CLINICAL INFORMATION: Low back pain COMPARISON: Previous x-ray January 2015 TECHNIQUE: Three views of the lumbosacral spine. FINDINGS: Bone alignment is normal. No fracture or dislocation is seen. There is degenerative disc disease at L5-S1. There is lower lumbar spine facet arthritis. IMPRESSION: Degenerative disc disease at L5-S1 and lower lumbar spine facet arthritis. Assessment & Plan Assessment & Plan (1) Muscle spasm of back: Code(s): M62.830 - Muscle spasm of back Category: Medical (2) Lumbar radiculopathy: Code(s): M54.16 - Radiculopathy, lumbar region Category: Medical (3) Lumbar degenerative disc disease: Code(s): M51.36 - Other intervertebral disc degeneration, lumbar region Category: Medical (4) Vertebrogenic low back pain: Code(s): M54.51 - Vertebrogenic low back pain Category: Medical Plan Patient is one week s/p bilateral diagnostic L3-L4 DR L5 MBB with no pain relief, prove that axial low back pain is not as significant pain generator as her discogenic low back pain. Given the previous success with L5-S1 transforaminal epidural steroid injection, a repeat procedure is planned to manage discogenic pain. We will also update her lumbar spine MRI and if findings support multilevel modic change contributions, consideration of Intracev BBN ablation may become appropriate. Adjustments to the patient's baclofen dosage to 20mg have been made to better control muscle spasms, and blood pressure monitoring is advised. All questions and concerns have been answered and patient agreed with the plan. Follow up after injections/MRI results and sooner as needed. Patient was informed and verbally consented to the use of an ambient scribe for clinic note documentation during this visit. Orders: Orders MR lumbar spine wo con Today M51.36 - Other intervertebral disc degeneration, lumbar region, M54.16 - Radiculopathy, lumbar region, M54.51 - Vertebrogenic low back pain Medications: Changed From baclofen 10 mg PO BID 30 days PRN 60 tabs 2RF for muscle spasm M62.830 - Muscle spasm of back To baclofen 20 mg PO BID 30 days PRN 60 tabs 3RF muscle spasms M62.830 - Muscle spasm of back Patient Instructions: I discussed with the patient and her family the plan to update her MRI to determine if changes at additional spinal levels might be contributing to her persistent back pain. We reviewed the outcomes of her previous injection treatments and the potential benefits of repeating the L5-S1 transforaminal epidural steroidal injection. The procedural step of Intracev BBN ablation was also explained as an option depending on upcoming MRI results, highlighting its minimally invasive nature and long-term pain relief potential. Risks associated with baclofen dosage adjustments were elucidated, emphasizing monitoring for increased blood pressure. Agreement to proceed with these plans was obtained. - Schedule and complete an updated MRI as recommended. - Proceed with the scheduled L5-S1 transforaminal epidural steroid injection. - Monitor blood pressure regularly while taking increased baclofen dosage. - Avoid activities that exacerbate pain, like excessive bending and standing. - Contact the office if experiencing any new or worsening symptoms. - Follow up as instructed after the MRI and injection procedures. Coding Level of Care Code Est Pt Level 4 (09033) Complex EM visit Add On G2211 Diagnoses Muscle spasm of back M62.830 Lumbar radiculopathy M54.16 Lumbar degenerative disc disease M51.36 Vertebrogenic low back pain M54.51
[2024-09-07 11:04] VITALS: BP 121/68; PULSE 60; O2SAT 99; BMI 38.7
--- OUTSIDE RECORDS SUMMARY | 2024-09-07 13:00 | XMS_ITS | Clinical Summary ---
Author Organization [employer] Address [address] [place] [address] Care Team Providers Care Machine I Coremaker Name Role Phone Unavailable Primary Care Provider [...]
--- OUTSIDE RECORDS SUMMARY | 2024-09-07 13:00 | XMS_ITS | Encounter Summary ---
Author Organization [facility], Address [address] [place] [address] Phone Care Team Providers Care Workers Compensation Attorney Name Role Phone Villa Lr MD Primary Care Provider [phone] Encounter Details Date Type Department Care Team (Late st Contact Info) Description 09/01/2024 1:15 PM EST Office Visit [facility], [address] [phone] Abdulkadir Osorio MD [address] [place] [address] [place] [phone] Chronic kidney disease, stage 2 (mild) (Primary Dx) Social History Tobacco Use Types Packs/Day Years [...] on file documented as of this encounter Progress Notes * Abdulkadir Osorio MD - 09/01/2024 1:15 PM EST Images from the original note were not included. PATIENT: Ute Goldberg : 1975 ENCOUNTER: 09/01/2024 PCP: Villa Lr MD HPI: Ute Goldberg is a 48 y.o. year old female with a history of mild CKD in the setting of DM and HTN. Follow up today, she says that she feels well and no new medications. Patient came today for thefollow-up. Seems to be doing well. States that blood pressure and blood sugar well controlled. Denies urinary symptoms. I reviewed blood work from primary care physician. Urinalysis: No proteinuria no hematuria no pyuria. Serum creatinine 0.7, calcium 9.9 serum sodium 139. I do not see most recent hemoglobin A1c and I do not have microalbumin creatinine ratio. As you know patient renal ultrasoundin last year, it did show increasing size and complexity of left renal cyst. MRI was ordered, but patient forgot to do it. Patient came for the follow up. Doing well. No new complaints. Labs [place] [facility]. MRIof the abdomen showed renal cyst with no concerning signs. 09/01/24: stable, no complaints, BP is low normal, recent labs: creatinine 0.6, lytes in the right order, no proteinuria. ROS: Constitutional: Negative for chills and fever. HENT: Negative for sore throat. Respiratory: Negative for cough and shortness of breath. Cardiovascular: Negative for chest pain, palpitations and PND. Gastrointestinal: Negative for abdominal pain, constipation, diarrhea, nausea and vomiting. Genitourinary: Negative for dysuria and hematuria. Musculoskeletal: Negative for back pain and myalgias. Skin: Negative for rash. Neurological: Negative for dizziness, focal weakness and headaches. Psychiatric/Behavioral: Negative for depression. All other systems reviewed and are negative. PAST MEDICAL HISTORY: Patient Active Problem List Diagnosis Date Noted Anemia 10/13/2019 Chronic kidney disease stage 2 10/13/2019 Diabetes mellitus (HCC) 10/13/2019 Hyperlipidemia 10/13/2019 Hypertensive disorder 10/13/2019 PAST SURGICAL HISTORY: Past Surgical History: Procedure Laterality Date HYSTERECTOMY partial, ovaries and cervix remain SOCIAL HISTORY: Social History Tobacco Use Smoking status: Never Smokeless tobacco: Never Substance Use Topics Alcohol use: No FAMILY HISTORY: Family History Problem Relation Age of Onset Diabetes Mother Heart disease Father Hypertension Mother Diabetes Father grandfather Cancer Mother grandmother MEDICATIONS: Outpatient Encounter Medications as of 09/01/2024 Medication Sig Dispense Refill amitriptyline (ELAVIL) 75 MG tablet Take 75 mg by mouth at bed time aspirin (ST BERNADINE) 81 MG EC tablet Take 81 mg by mouth 1 (one) time each day atorvastatin (LIPITOR) 20 MG tablet TOME JOSTIN TABLETA POR V A ORAL A DIARIO atorvastatin (LIPITOR) 20 MG tablet Take 20 mg by mouth 1 (one) time each day clonazePAM (KlonoPIN) 1 MG tablet Take 1 tablet by mouth at bed time Creon 31818-59045 units capsule TOME 1 C PSULA POR V A ORAL ANTES DE LAS COMIDAS 15 MINS CUATRO VECES AL D A [facility] Bisacodyl 5 MG EC tablet Take 10 mg by mouth every night [facility] Senna 8.6 MG tablet [facility] Soluble Fiber Therapy 500 MG tablet TOME JOSTIN TABLETA DOS VECES AL D A FOR 30 DAYS famotidine (PEPCID) 40 MG tablet TOME JOSTIN TABLETA DOS VECES AL D A FREESTYLE LITE test strip USE SEG N LO INDICADO YASEMIN VECES AL D A insulin aspart (NovoLOG FLEXPEN) 100 UNIT/ML injection Linzess 290 MCG capsule TAKE 1 CAPS (290 MCG) POR V A ORAL EVERY AM 30 DAYS liraglutide (VICTOZA) 18 MG/3ML injection Inject 18 mg under the skin 1 (one) time each day melatonin 3 MG tablet Take 1 tablet by mouth at bed time metFORMIN (GLUCOPHAGE) 500 MG tablet TOME JOSTIN TABLETA DOS VECES AL D A metoclopramide (REGLAN) 10 MG tablet metoclopramide 10 mg tablet montelukast (SINGULAIR) 10 MG tablet TOME JOSTIN TABLETA POR V A ORAL CADA NOCHE montelukast (SINGULAIR) 10 MG tablet Take 10 mg by mouth every night NovoFine 32G X 6 MM misc DX E11.9 TO USE WITH INSULIN PENS ONCE A DAY SQ 30 DAYS omeprazole (PriLOSEC) [address] capsule TOME JOSTIN C PSULA TODOS LOS D BEFORE MEALS DIRECTED. onabotulinumtoxinA (Botox) 100 units injection pantoprazole (PROTONIX) 40 MG EC tablet Take 1 tablet by mouth 1 (one) time each day pioglitazone (ACTOS) 30 MG tablet TOME JOSTIN TABLETA TODOS LOS D propranolol (INDERAL) 80 MG tablet TAKE 1 TABLET (80 MG) BY ORAL ROUTE 2 TIMES PER DAY raNITIdine (ZANTAC) 150 MG capsule Take 1 capsule by mouth 1 (one) time each day sertraline (ZOLOFT) 100 MG tablet TOME JOSTIN Y MEDIA TABLETAS TODOS LOS D POR V A ORAL SEG N LO INDICADO sertraline (ZOLOFT) 50 MG tablet Take 1 tablet by mouth 1 (one) time each day Simethicone Ultra Strength 180 MG capsule TOME 1 C PSULA POR V A ORAL YASEMIN VECES AL D A AFTER MEALS simvastatin (ZOCOR) 5 MG tablet Take 1 tablet by mouth 1 (one) time each day topiramate (TOPAMAX) 50 MG tablet TOME JOSTIN TABLETA POR V A ORAL DOS VECES AL D A traMADol (ULTRAM) 50 MG tablet tramadol 50 mg tablet triamcinolone (NASACORT) 55 MCG/ACT nasal inhaler USE 1 SPRAY IN EACH NOSTRIL A DIARIO ziprasidone (GEODON) 80 MG capsule TAKE 1 CAPSULE BY MOUTH TWICE A DAY SUZIE CON COMIDA No facility-administered encounter medications on file as of 09/01/2024. ALLERGIES: has No Known Allergies. PHYSICAL EXAM: BP 110/60 Constitutional: No apparent distress HEENT Mouth/Throat: Oropharynx is clear and moist. Eyes: Conjunctivae are normal. No scleral icterus. Neck: Neck supple, no JVD, carotids 2+ Cardiovascular: Normal rate, no friction rub. Pulmonary/Chest: Effort normal, breath sounds normal, no wheezes or rales. Abdominal: Soft, non-tender, without masses or ascites. Musculoskeletal: Normal range of motion without pain. Skin: Skin is warm and dry. No rash noted. No erythema. Psychiatric: Normal mood. Extremities: Edema 0 LABS: Chemistry Lab Units 07/05/24 1144 CREATININE mg/dL 0.58 BUN mg/dL 11 POTASSIUM mmol/L 4.3 SODIUM mmol/L 139 CO2 mmol/L 22 CHLORIDE mmol/L 103 ALBUMIN g/dL 4.2 HEMOGLOBIN A1C % 7.4* WBC AUTO x10E3/uL 7.6 HEMATOCRIT % 38.1 HEMOGLOBIN g/dL 11.7 PLATELETS AUTO x10E3/uL 284 Bone Mineral Lab Units 07/05/24 1144 CALCIUM mg/dL 9.9 PHOSPHORUS mg/dL 3.4 PTH pg/mL 20 VIT D 25 HYDROXY ng/mL 30.0 Urine Lab Units 07/05/24 1144 ALB MG/G CREAT UR mg/g creat <5 ASSESSMENT: 1. Chronic kidney disease, stage 2 (mild) 2. Hypertensive disorder 3. Chronic kidney disease stage 3 (HCC) 4. Complex renal cyst Ute is a 45-year-old female with a long history of type 2 diabetes as well as hypertension she has a long history of a nonsteroidal medication use which has contributed to her chronic renal disease. - stable renal fx - BP is on a low side, on propranolol for migraines - no significant albuminuria - low salt diet - importance of BP and BS control in progression of CKD expalined - MRI of the abdomen, renal tumor protocol: no concerning findings - follow up in 12 months Orders Placed This Encounter CBC and differential Comprehensive metabolic panel Magnesium Phosphorus Renal function panel Uric acid Urine Albumin / Creatinine Ratio Urinalysis with microscopic Vitamin D 25 hydroxy documented in this encounter Plan of Treatment Upcoming Encounters Date Type Department Care Team (Late st Contact Info) Description 09/07/2025 1:30 PM EDT Office Visit [facility], [address] [place] [phone] Abdulkadir Osorio MD [address] [place] [address] [place] [phone] Scheduled Orders Name Type Priority Associated Diagnoses Orde r Schedule CBC and differential Lab Routine Chronic kidney disease, stage 2 (mild) Expected: 09/01/2024, Expires: 10/02/2025 Comprehensive metabolic panel Lab Routine Chronic kidney disease, stage 2 (mild) Expected: 09/01/2024, Expires: 10/02/2025 Magnesium Lab Routine Chronic kidney disease, stage 2 (mild) Expected: 09/01/2024, Expires: 10/02/2025 Phosphorus Lab Routine Chronic kidney disease, stage 2 (mild) Expected: 09/01/2024, Expires: 10/02/2025 Renal function panel Lab Routine Chronic kidney disease, stage 2 (mild) Expected: 09/01/2024, Expires: 10/02/2025 Uric acid Lab Routine Chronic kidney disease, stage 2 (mild) Expected: 09/01/2024, Expires: 10/02/2025 Urine Albumin / Creatinine Ratio Lab Routine Chronic kidney disease, stage 2 (mild) Expected: 09/01/2024, Expires: 10/02/2025 Urinalysis with microscopic Lab Routine Chronic kidney disease, stage 2 (mild) Expected: 09/01/2024, Expires: 10/02/2025 Vitamin D 25 hydroxy Lab Routine Chronic kidney disease, stage 2 (mild) Expected: 09/01/2024, Expires: 10/02/2025 documented as of this encounter Visit Diagnoses Diagnosis Chronic kidney disease, stage 2 (mild)- Primary documented in this encounter Care Teams Workers Compensation Attorney Relationship Specialty Start Date End Date Villa Lr MD [address] [place] [address] [address] [place] [address] PCP - General 05/04/19 documented as of this encounter
--- OUTSIDE RECORDS SUMMARY | 2024-09-07 13:00 | XMS_ITS | Clinical Summary ---
Author Organization [facility], Address [address] [place] [address] [place] [address] Phone Care Team Providers Care Beef Splitter Name Role Phone Villa Lr MD Primary Care Provider +1- [phone] Allergies No known active allergies Medications clonazePAM [...] D BEFORE MEALS DIRECTED. 1 Active Creon 42218-76340 units capsule TOME 1 C PSULA POR [...] mellitus 10/13/2019 Hyperlipidemia 10/13/2019 Hypertensive disorder 10/13/2019 Encounters Date Type Department Care Team Description 09/01/2024 1:15 PM EST Office Visit [facility], [address] [place] [address] Abdulkadir Osorio MD Chronic kidney disease, stage 2 (mild) (Primary Dx) from Last 3 Months Immunizations Name Administration Dates Next Due Influenza, [...] Visit [facility], [address] [place] [address] Abdulkadir Osorio MD [address] [place] [address] Health Maintenance Due Date Last Done [...] Glucose 105(H) 70 - 99 mg/dL [facility] Uric Acid 3.8 2.6 - 6.2 mg/dL [facility] Comment:Therapeutic target f or gout patients: <6.0 BUN 11 6 - 24 mg/dL [facility] Creatinine 0.58 0.57 - 1.00 mg/dL [facility] eGFR CKD-EPI CR 2020 112 >59 mL/min/1.7 3 [facility] BUN/Creatinine Ratio 19 9 - 23 [facility] Sodium 139 134 - 144 mmol/L [facility] Potassium 4.3 3.5 - 5.2 mmol/L [facility] Chloride 103 96 - 106 mmol/L [facility] Bicarbonate (CO2) 22 20 - 29 mmol/L [facility] Anion Gap 14.0 10.0 - 18.0 mmol/L [facility] Calcium 9.9 8.7 - 10.2 mg/dL [facility] Total Protein 6.6 6.0 - 8.5 g/dL [facility] Albumin 4.2 3.9 - 4.9 g/dL [facility] Globulin 2.4 1.5 - 4.5 g/dL [facility] Phosphorus 3.4 3.0 - 4.3 mg/dL [facility] 07/05/2024 11:4 4 AM EST 07/05/2024 us Abdulkadir Osorio MD LAB [id number] OLICITED RESULTS Final Result [facility] [address] [place] [address] * Microscopic Examination (07/05/2024 11:44 AM EST) WBC, Urine None seen 0 - 5 /hpf [facility] RBC, Urine None seen 0 - 2 /hpf [facility] Squamous Epithelial, Urine 0-10 0 - 10 /hpf [facility] Casts None seen None seen /lpf [facility] Bacteria, Urine None seen None seen/Few [facility] 07/05/2024 11:4 4 AM EST 07/05/2024 us Abdulkadir Osorio MD LAB MICROBIOLOGY - GENERAL ORD ERABLES Final Result [facility] [address] [place] [address] * (ABNORMAL) Iron Panel (Fe, TIBC, TSAT) (07/05/2024 11:44 AM EST) TIBC 385 250 - 450 ug/dL [facility] UIBC 348 131 - 425 ug/dL [facility] Iron 37 27 - 159 ug/dL [facility] Iron Saturation (TSat) 10(L) 15 - 55 % [facility] 07/05/2024 11:4 4 AM EST 07/05/2024 us Abdulkadir Osorio MD LAB BLOOD ORDERABLES Final Res ult Performing Organization Address [facility] [[email or web address]] de Phone Number RUBEN Ruben Te[address] [place] [address] * Urine Albumin / Creatinine Ratio (07/05/2024 11:44 AM EST) Creatinine, Ur 55.2 Not Estab. mg/dL [facility] Urine Microalbumin <3.0 Not Estab. ug/mL [facility] Microalbumin/Crea tinine Ratio <5 0 - 29 mg/g creat [facility] Comment: ? Normal: ?0 - ??29 ? Moderately increased: 30 - 300 ? Severely increased: ? >300 07/05/2024 11:4 4 AM EST 07/05/2024 us Abdulkadir Osorio MD LAB URINE ORDERABLES Final Res ult Performing Organization Address [facility] [[email or web address] de Phone Number JJ Miranda [address] [place] [address] * Vitamin D 25 Hydroxy (07/05/2024 11:44 AM EST) Vitamin D, 25-OH, Total 30.0 30.0 - 100.0 ng/mL [facility] Comment: Vitamin D deficiency has been defined by the [place] [employer] and an Endocrine Society practice guideline as a level of serum 25-OH vitamin D less than 20 ng/mL (1,2). The Endocrine Society went on to further define vitamin D insufficiency as a level between 21 and 29 ng/mL (2). 1. IOM ([place] [employer]). 2010. Dietary reference ?? intakes for calcium and D. [place]: The ?? National Academies Press. 2. Levy MF, Roslyn ORDONEZ, Ousmane OCAMPO, et al. ?? Evaluation, treatment, and prevention of vitamin D ?? deficiency: an Endocrine Society clinical practice ?? guideline. JCEM. 2010; 96(7):1911-30. 07/05/2024 11:4 4 AM EST 07/05/2024 us Abdulkadir Osorio MD LAB BLOOD ORDERABLES Final Res ult [facility] [address] [place] [address] * (ABNORMAL) Urinalysis with microscopic (07/05/2024 11:44 AM EST) Specific [place], Urine 1.011 1.005 - 1.030 [facility] pH Urine 8.0(H) 5.0 - 7.5 [facility] Color, Urine Yellow Yellow [facility] [phone] Appearance Urine Clear Clear [facility] WBC Esterase Urine Negative Negative [facility] Protein, Ur Negative Negative/Tra ce [facility] Glucose, Ur Negative Negative [facility] [phone] Ketones, Urine Negative Negative [facility] Blood Urine Negative Negative [facility] Bilirubin Urine Negative Negative [facility] Urobilinogen Urine 0.2 0.2 - 1.0 mg/dL [facility] Nitrite, Urine Negative Negative [facility] Microscopic Examination Comment [facility] Comment:Microscopic follows if indicated. Other Microsc. Observations See below: [facility] Comment:Microscopic was casper cated and was performed. 07/05/2024 11:4 4 AM EST 07/05/2024 us Abdulkadir Osorio MD LAB URINE ORDERABLES Final Res ult [facility] [address] [place] [address] * (ABNORMAL) CBC and Differential (07/05/2024 11:44 AM EST) WBC 7.6 3.4 - 10.8 x10E3/uL [facility] RBC 4.00 3.77 - 5.28 x10E6/uL [facility] Hemoglobin 11.7 11.1 - 15.9 g/dL [facility] Hematocrit 38.1 34.0 - 46.6 % [facility] MCV 95 79 - 97 fL [facility] MCH 29.3 26.6 - 33.0 pg [facility] MCHC 30.7(L) 31.5 - 35.7 g/dL [facility] RDW 13.1 11.7 - 15.4 % [facility] Platelets 284 150 - 450 x10E3/uL [facility] Neutrophils Relative 61 Not Estab. % [facility] Lymphocytes Relative 30 Not Estab. % [facility] Monocytes 8 Not Estab. % [facility] Eosinophils Relative 1 Not Estab. % [facility] Basophils Relative 0 Not Estab. % [facility] Neutrophils Absolute 4.6 1.4 - 7.0 x10E3/uL [facility] Lymphocytes Absolute 2.3 0.7 - 3.1 x10E3/uL [facility] Monocytes Absolute 0.6 0.1 - 0.9 x10E3/uL [facility] Eosinophils Absolute 0.1 0.0 - 0.4 x10E3/uL [facility] Basophils Absolute 0.0 0.0 - 0.2 x10E3/uL [facility] Immature Granulocytes 0 Not Estab. % [facility] Immature Grans (Absolute) 0.0 0.0 - 0.1 x10E3/uL [facility] 07/05/2024 11:4 4 AM EST 07/05/2024 Abdulkadir Osorio MD LAB BLOOD ORDERABLES Final Res ult [facility] [address] [place] [address] * PTH, Intact (07/05/2024 11:44 AM EST) PTH 20 15 - 65 pg/mL [facility] 07/05/2024 11:4 4 AM EST 07/05/2024 us Abdulkadir Osorio MD LAB BLOOD ORDERABLES Final Res ult [facility] [address] [place] [address] * Magnesium (07/05/2024 11:44 AM EST) Magnesium 1.9 1.6 - 2.3 mg/dL [facility] 07/05/2024 11:4 4 AM EST 07/05/2024 Abdulkadir Osorio MD LAB BLOOD ORDERABLES Final Res ult Performing Organization Address City/[facility]/ZIP Co de Phone Number [facility] [address] [place] [address] * (ABNORMAL) Hemoglobin A1c (07/05/2024 11:44 AM EST) Hemoglobin A1C 7.4(H) 4.8 - 5.6 % [facility] Comment: ? Prediabetes: 5.7 - 6.4 ? Diabetes: >6.4 ? Glycemic control for adults with diabetes: <7.0 07/05/2024 11:4 4 AM EST 07/05/2024 Abdulkadir Osorio MD LAB BLOOD ORDERABLES Final Res ult Performing Organization Address [facility] Co de Phone Number [facility] [address] [place] [address] * (ABNORMAL) Ferritin (07/05/2024 11:44 AM EST) Ferritin 11(L) 15 - 150 ng/mL [facility] 07/05/2024 11:4 4 AM EST 07/05/2024 Abdulkadir Osorio MD LAB BLOOD ORDERABLES Final Res ult Performing Organization Address City/[facility]/ZIP Co de Phone Number [facility] [address] [place] [address] from Last 3 Months [facility] Care Teams Beef Splitter Relationship Specialty Start Date End Date Villa Lr MD [address] [place] [address] PCP - General 05/04/19
--- OUTSIDE RECORDS SUMMARY | 2024-09-07 13:00 | XMS_ITS | Encounter Summary ---
Author Organization [facility] Address [address] [place] [address] Care Team Providers Care Laborer Concrete Plant Name Role Phone Unavailable Primary Care Provider Unavailabl e Encounter Details Date Type Department Care Team (Latest Contact Info) Description 03/18/2019 Abstract [facility] CONVERSIONS Dental, Provider, DDS Social History Tobacco [...]
--- OUTSIDE RECORDS SUMMARY | 2024-09-07 13:00 | XMS_ITS | Encounter Summary ---
Author Organization [facility], Address [address] [place] [address] Phone Care Team Providers Care Deaf Interpreter Name Role Phone Villa Lr MD Primary Care Provider +1- [phone] Encounter Details Date Type Department Care Team (Late st Contact Info) Description 06/16/2023 Documentation Only [facility], [address] [place] [address] Abdulkadir Osorio MD [address] [place] [address] [place] [address] Social History Tobacco Use Types [...] Visit [facility], [address] [place] [address] Abdulkadir Osorio MD [address] [place] [address] documented as of this encounter Visit Diagnoses Not on filedocumented in this encounter Care Teams Deaf Interpreter Relationship Specialty Start Date End Date Villa Lr MD [address] [place] [address] PCP - General 05/04/19 documented as of this encounter
--- OUTSIDE RECORDS SUMMARY | 2024-09-07 13:00 | XMS_ITS | Encounter Summary ---
Author Organization [facility], Address [address] [place] [address] Phone Care Team Providers Care Analysis Mgr Name Role Phone Villa Lr MD Primary Care Provider +1- [phone] Encounter Details Date Type Department Care Team (Late st Contact Info) Description 06/10/2022 Documentation Only [facility], [address] [place] [address] Abdulkadir Osorio MD [address] [place] [address] [place] [address] Social History Tobacco Use Types [...] Visit [facility], [address] [place] [address] Abdulkadir Osorio MD [address] [place] [address] documented as of this encounter Visit Diagnoses Not on filedocumented in this encounter Care Teams Analysis Mgr Relationship Specialty Start Date End Date Villa Lr MD [address] [place] [address] PCP - General 05/04/19 documented as of this encounter
--- OUTSIDE RECORDS SUMMARY | 2024-09-07 13:00 | XMS_ITS | Encounter Summary ---
Author Organization [employer] [facility] Address [address] [place] [address] Care Team Providers Care Metrology Technician Name Role Phone Unavailable Primary Care Provider Unavailabl e Encounter Details Date Type Department Care Team (Latest Contact Info) Description 05/17/2021 Abstract [facility] CONVERSIONS Dental, Provider, DDS Social [...]
--- OUTSIDE RECORDS SUMMARY | 2024-09-07 13:00 | XMS_ITS | Data Portability ---
Author Organization [facility] Differential, [facility] Address [address] [facility] [place] [address] Care Team Providers Care [place] Name Role Phone LATIA RASHID Referring Provider LATIA RASHID Primary Care Provider [phone] Assessment Encounter Date Assessment Date Assessment LastModified [...] today, I reviewed the propranolol prescription in [place] and noted that she had a 90-day [...] with April 2023 confirmation of medications from [facility]) -From [facility]: propranolol 60 mg twice daily topiramate 100 mg twice daily, Aimovig 140 mg/mL monthly autoinjector and Ubrelvy 100 mg as needed for breakthrough migraine from [facility] (she was also concurrently on rizatriptan [...] with April 2023 confirmation of medications from [facility]) -From [facility]: propranolol 60 mg twice daily topiramate 100 mg twice daily, Aimovig 140 mg/mL monthly autoinjector and Ubrelvy 100 mg as needed for breakthrough migraine from [facility] (she was also concurrently on rizatriptan [...] 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 ? 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 [...] with April 2023 confirmation of medications from [facility]) -From [facility]: propranolol 60 mg twice daily topiramate 100 mg twice daily, Aimovig 140 mg/mL monthly autoinjector and Ubrelvy 100 mg as needed for breakthrough migraine from [facility] (she was also concurrently on rizatriptan [...] extra dose in her refrigerator and to cone picker the new prescription when it gets. [...] with April 2023 confirmation of medications from [facility]) -From [facility]: propranolol 60 mg twice daily topiramate 100 mg twice daily, Aimovig 140 mg/mL monthly autoinjector and Ubrelvy 100 mg as needed for breakthrough migraine from [facility] (she was also concurrently on rizatriptan [...] mL subcutane ous auto-inje ctor 2023 024 [id number] [address] [place], [address], 03/23/2024 12:47:06 Ubrelvy 100 mg tablet 2023 024 [id number], [address] [place], [address], 03/23/2024 12:47:07 Ajovy 225 mg/1.5 mL subcutane ous auto-inje ctor 2023 024 [id number] [address] [place], [address], 12/10/2023 12:17:38 propranol ol 60 mg tablet 2023 024 [id number] [address] [place], [address], 11/11/2023 11:21:02 topiramat e 50 mg tablet 2023 024 [facility] [address] [place], [address], 11/11/2023 11:21:03 Aimovig Autoinjec tor 140 mg/mL subcutane ous auto-inje ctor 2023 024 [id number] [address] [place], [address], 03/23/2024 12:59:57 Ubrelvy 100 mg tablet 2023 024 [facility], [address] [place], [address], 11/11/2023 11:21:02 topiramat e 100 mg tablet 2023 024 [facility], [address] [place], [address], 10/07/2023 10:22:21 propranol ol 60 mg tablet 2023 024 [facility], [address] [place], [address], 10/07/2023 10:22:21 Aimovig Autoinjec tor 140 mg/mL subcutane ous auto-inje ctor 2023 024 [facility] [address] [place], [address], 03/23/2024 12:59:57 Ubrelvy 100 mg tablet 2023 024 [facility], [address] [place], [address], 10/07/2023 10:22:21 topiramat e 100 mg tablet 2022 023 [facility], [address] [place], [address], 05/28/2023 09:56:01 propranol ol 60 mg tablet 2022 023 [facility], [address] [place], [address], 05/28/2023 09:56:01 Aimovig Autoinjec tor 140 mg/mL subcutane ous auto-inje ctor 2022 023 [id number] [address] [place], [address], 03/23/2024 12:59:57 Ubrelvy 100 mg tablet 2022 023 [facility] #[id number], [address] [facility], [place], [address], 05/28/2023 09:56:01 Patient TargetsNo targets recorded. 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 She will cone picker a sample today. 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 She will cone picker a sample today. 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 She will cone picker a sample today. 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 She will cone picker a sample today. 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 She was running out of UbrelKiddify for breakthrough migraine reported October 01, 2022. [...] not discuss the addition of rizatriptan through [facility] which we have discussed previously as she [...] over the potential side effects. She will cone picker a sample today. 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 Procedures Surgical History Date Name Laterality Status Provider Name and Address Organization Details Recorded Time 4 botulinum injection completed Imer Lieberman MD [address] [place], [place] [address], [address], [facility] 03/23/2024 12:37:46 4 botulinum injection completed Imer Lieberman MD [address] [place], [place] [address], [address], [facility] 12/10/2023 11:56:10 4 botulinum injection completed Imer Lieberman MD [address] [place], [place] [address], [address], [facility] 11/11/2023 11:10:22 4 botulinum injection completed ENRIKE NORTON PA-C [address] [place], [place] [address], [address], [facility] 10/07/2023 10:03:49 3 botulinum injection completed ENRIKE NORTON PA-C [address] [place], [place] [address], [address], [facility] 05/28/2023 09:39:33 3 botulinum injection completed ENRIKE NORTON PA-C [address] [place], [place] [address], [address], [facility] 04/24/2023 10:42:13 3 botulinum injection completed ENRIKE NORTON PA-C [address] [place], [place] [address], [address], [facility] 03/18/2023 10:47:21 3 botulinum injection completed ENRIKE NORTON PA-C [address] [place], [place] [address], [address], [facility] 01/23/2023 09:59:39 3 botulinum injection completed ENRIKE NORTON PA-C [address] [place] [address] B, YAKOV Monter[place], [address], [facility] 12/19/2022 11:33:40 3 botulinum injection completed ENRIKE NORTON PA-C [address] [place] [address] B, YAKOV [place], [address], [facility] 11/28/2022 13:56:45 3 botulinum injection completed ENRIKE NORTON PA-C [address] [place] [address] B, YAKOV Monter[place], [address], [facility] 10/29/2022 10:47:52 3 botulinum injection completed ENRIKE NORTON PA-C [address] [place] [address] B, YAKOV Monter[place], [address], [facility] 10/01/2022 13:50:41 3 botulinum injection completed Imer Lieberman MD [address] [place] [address] B, YAKOV Mon[place], [address], [facility] 08/14/2022 17:00:39 3 botulinum injection completed ENRIKE NORTON PA-C [address] [place] [address] B, YAKOV Mon[place], [address], [facility] 07/09/2022 14:05:58 2 botulinum injection completed Imer Lieberman MD [address] [place] [address] B, YAKOV [place], [address], [facility] 05/16/2022 13:33:52 2 botulinum injection completed ENRIKE NORTON PA-C [address] [place] [address] B, YAKOV [place], [address], [facility] 03/14/2022 14:10:23 2 botulinum injection completed Imer Lieberman MD [address] [place] [address] B, YAKOV Monter[place], [address], [facility] 02/13/2022 09:15:23 2 botulinum injection completed ENRIKE NORTON PA-C [address] [place] [address], YAKOV Montero, [address], [facility] 12/06/2021 13:50:32 2 botulinum injection completed Imer Lieberman MD [address] [place] [address] B, YAKOV Monter[place], [address], [facility] 11/07/2021 13:30:06 2 botulinum injection completed ENRIKE NORTON PA-C [address] [place] [address] B, YAKOV Montero, [address], [facility] 09/05/2021 14:12:15 2 botulinum injection completed Imer Lieberman MD [address] [place] [address], YAKOV Montero, [address], [facility] 07/25/2021 15:27:34 2 botulinum injection completed ENRIKE NORTON PA-C [address] [place] [address], YAKOV Montero, [address], [facility] 07/12/2021 08:55:03 1 botulinum injection completed ENRIKE NORTON PA-C [address] [place] [address] B, YAKOV Montero, [address], [facility] 05/29/2021 22:54:52 1 botulinum injection completed Imer Lieberman MD [address] [place] [address], YAKOV Montero, [address], [facility] 04/25/2021 14:30:46 1 botulinum injection completed Imer Lieberman MD [address] [place] [address], YAKOV Montero, [address], [facility] 01/24/2021 19:05:02 1 botulinum injection completed Imer Lieberman MD [address] [place] [address] B, YAKOV Montero, [address], [facility] 10/25/2020 18:09:08 Imaging Results None [...] Code Diagnosis Note [id number] Imer Lieberman MD [facility] [address] [place] [address] JOSE MONTERO YAKOV [address] 4 10/25/2020 14:51:37 10/30/2020 14:49:52 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 Dystonia 71213126 G24.3 Facial spasm 66004694 G5 1.39 Migraine without aura 56 890780 G43.009 [id number] Imer Lieberman MD [facility] [address] [place] [address] JOSE RETANAYAKOV RICHARD [address]371 4 01/24/2021 14:50:22 01/25/2021 08:16:40 Idiopathic non-familial dystonia 528298116 G24.1 Dystonia 23222617 G24.3 Facial spasm 00131208 G5 1.39 Migraine without aura 56 512529 G43.009 [id number] Imer Lieberman MD [facility] [address] [place] [address] JOSE RETANAYAKOV RICHARD [address]-691 4 02/28/2021 11:51:24 02/28/2021 12:29:37 Idiopathic non-familial dystonia 471269393 G24.1 Dystonia 06503232 G24.3 Facial spasm 41338436 G5 1.39 Migraine without aura 56 527798 G43.009 [id number] Imer Lieberman MD [facility] [address] [place] [address] JOSE RETANAYAKOV RICHARD [address]572 4 04/25/2021 12:22:14 04/26/2021 07:40:15 Idiopathic non-familial dystonia 329049186 G24.1 Dystonia 69872515 G24.3 Facial spasm 88420654 G5 1.39 Migraine without aura 56 972017 G43.009 [id number] Imer Lieberman MD [facility] [address] [place] [address] JOSE RETANAYAKOV RICHARD [address]-9[address] 4 05/29/2021 10:02:07 05/30/2021 15:05:44 Idiopathic non-familial dystonia 184053242 G24.1 Dystonia 25098975 G24.3 Facial spasm 15639485 G5 1.39 Migraine without aura 56 205444 G43.009 Migraine with aura 06500 06 G43.109 [id number] Imer Lieberman MD [facility] [address] [place] [address] Gordo MONTERO YAKOV [address]-659 4 07/12/2021 08:51:06 08/03/2021 15:14:49 Idiopathic non-familial dystonia 459798430 G24.1 Dystonia 67499129 G24.3 Facial spasm 04065326 G5 1.39 Migraine without aura 56 159052 G43.009 [id number] Imer Lieberman MD [facility] [address] [place] [address] Gordo MONTERO YAKOV [address]-757 4 07/25/2021 13:52:53 07/25/2021 16:35:44 Idiopathic non-familial dystonia 694948016 G24.1 Dystonia 87532903 G24.3 Facial spasm 67141249 G5 1.39 Migraine without aura 56 141233 G43.009 [id number] Imer Lieberman MD [facility] [address] [place] [address] Gordo MONTEROYAKOV [address] 4 09/05/2021 14:01:17 09/10/2021 10:57:43 Idiopathic non-familial dystonia 855065264 G24.1 Dystonia 18356763 G24.3 Facial spasm 66611709 G5 1.39 Migraine without aura 56 346272 G43.009 [id number] Imer Lieberman MD [facility] [address] [place] [address] JOSE RETANAYAKOV RICHARD [address] 4 11/07/2021 12:25:50 11/07/2021 18:58:37 Idiopathic non-familial dystonia 835951898 G24.1 Dystonia 92286639 G24.3 Facial spasm 86022515 G5 1.39 Migraine without aura 56 297612 G43.009 [id number] Imer Lieberman MD [facility] [address] [place] [address] Gordo RETANAWINSTONYAKOV RICHARD 49587-032 4 12/06/2021 13:06:48 12/10/2021 15:27:19 Idiopathic non-familial dystonia 937735552 G24.1 Dystonia 15895087 G24.3 Facial spasm 96262416 G5 1.39 Migraine without aura 56 980722 G43.009 [id number] Imer Lieberman MD [facility] [address] [place] [address] Gordo YAKOV MONTERO 58739-593 4 02/13/2022 07:56:35 02/13/2022 09:24:50 Idiopathic non-familial dystonia 243727832 G24.1 Dystonia 78945270 G24.3 Facial spasm 84488541 G5 1.39 Migraine without aura 56 252446 G43.009 [id number] Imer Lieberman MD [facility] [address] [place] [address] Gordo YAKOV MONTERO 86653-583 4 03/14/2022 13:58:56 03/19/2022 09:35:39 Idiopathic non-familial dystonia 635725888 G24.1 Dystonia 71524358 G24.3 Facial spasm 34085655 G5 1.39 Migraine without aura 56 833098 G43.009 7012 Imer Lieberman MD [facility] [address] [place] [address] Gordo YAKOV MONTERO 96319-245 4 05/16/2022 11:40:07 05/16/2022 15:55:55 Idiopathic non-familial dystonia 702385726 G24.1 Dystonia 70474589 G24.3 Facial spasm 20251097 G5 1.39 Migraine without aura 56 035819 G43.009 [id number] Imer Lieberman MD [facility] [address] [place] [address] Gordo YAKOV MONTERO 82590-815 4 07/09/2022 13:59:24 07/25/2022 12:39:21 Idiopathic non-familial dystonia 278412037 G24.1 Dystonia 39487200 G24.3 Facial spasm 01752097 G5 1.39 Migraine without aura 56 159045 G43.009 Migraine with aura 75943 06 G43.109 7846 Imer Lieberman MD [facility] [address] [place] [address] Gordo YAKOV MONTERO 67520-525 4 08/14/2022 15:04:31 08/14/2022 17:43:36 Idiopathic non-familial dystonia 743512519 G24.1 Dystonia 07648981 G24.3 Facial spasm 45725228 G5 1.39 Migraine without aura 56 968584 G43.009 [id number] ENRIKE NORTON PA-C [facility] [address] [place] [address] B YAKOV MONTERO 79278-527 4 10/01/2022 13:45:47 10/03/2022 11:40:32 Idiopathic non-familial dystonia 255381320 G24.1 Dystonia 03042435 G24.3 Facial spasm 97582066 G5 1.39 Migraine without aura 56 985794 G43.009 Migraine with aura 12256 06 G43.109 [id number] Imer Lieberman MD [facility] [address] [place] [address] JOSE RETANAHILARY YAKOV 35144-244 4 10/29/2022 10:18:41 11/04/2022 15:06:43 Idiopathic non-familial dystonia 870545572 G24.1 Dystonia 33799751 G24.3 Facial spasm 51200835 G5 1.39 Migraine without aura 56 749306 G43.009 Migraine with aura 49411 06 G43.109 [id number] ENRIKE NORTON PA-C [facility] [address] [place] [address] JOSE RETANAYAKOV RICHARD 69613-185 4 11/28/2022 13:27:59 12/02/2022 15:28:22 Idiopathic non-familial dystonia 921314400 G24.1 Dystonia 81290807 G24.3 Facial spasm 33552726 G5 1.39 Migraine without aura 56 458662 G43.009 Migraine with aura 79696 06 G43.109 [id number] Imer Lieberman MD [facility] [address] [place] [address] JOSE MONTERO YAKOV [id number] 4 12/19/2022 11:07:15 12/23/2022 16:34:25 Idiopathic non-familial dystonia 688535638 G24.1 Dystonia 59160321 G24.3 Facial spasm 00541649 G5 1.39 Migraine without aura 56 497646 G43.009 Migraine with aura 55891 06 G43.109 [id number] Imer Lieberman MD [facility] [address] [place] [address] JOSE Gordo RETANAWINSTONYAKOV RICHARD 66655-794 4 01/23/2023 09:21:21 02/10/2023 16:21:14 Idiopathic non-familial dystonia 280916365 G24.1 Dystonia 00499635 G24.3 Facial spasm 80154847 G5 1.39 Migraine without aura 56 249338 G43.009 Migraine with aura 57360 06 G43.109 [id number] Imer Lieberman MD [facility] [address] [place] [address] Gordo MONTERO YAKOV [id number] 4 03/18/2023 10:30:58 03/19/2023 17:32:28 Idiopathic non-familial dystonia 990586559 G24.1 Dystonia 62287491 G24.3 Facial spasm 08209074 G5 1.39 Migraine without aura 56 744537 G43.009 Migraine with aura 45682 06 G43.109 [id number] ENRIKE NORTON PA-C [facility] [address] [place] [address] Gordo MONTERO YAKOV [id number] 4 04/24/2023 10:15:35 04/30/2023 10:38:58 Idiopathic non-familial dystonia 079058444 G24.1 Dystonia 39522952 G24.3 Facial spasm 75300703 G5 1.39 Migraine without aura 56 636978 G43.009 Migraine with aura 86434 06 G43.109 [id number] Imer Lieberman MD [facility] [address] [place] [address] Gordo RETANAWINSTON, YAKOV 82078-729 4 05/28/2023 09:14:15 05/29/2023 16:35:04 Idiopathic non-familial dystonia 943892754 G24.1 Dystonia 72349319 G24.3 Facial spasm 63001142 G5 1.39 Migraine without aura 56 701193 G43.009 Migraine with aura 50492 06 G43.109 [id number] Imer Lieberman MD [facility] [address] [place] [address] Gordo RETANAWINSTONYAKOV RICHARD 97751-461 4 10/07/2023 09:31:55 10/13/2023 13:14:20 Idiopathic non-familial dystonia 925546414 G24.1 Dystonia 84398868 G24.3 Facial spasm 25450342 G5 1.39 Migraine without aura 56 610840 G43.009 Migraine with aura 64974 06 G43.109 [id number] Imer Lieberman MD [facility] [address] [place] [address] Gordo RETANAWINSTON, YAKOV 06534-934 4 11/11/2023 10:36:51 11/11/2023 11:43:45 Idiopathic non-familial dystonia 395960615 G24.1 Dystonia 76054444 G24.3 Facial spasm 37433469 G5 1.39 Migraine without aura 56 512910 G43.009 Migraine with aura 36881 06 G43.109 [id number] Imer Lieberman MD [facility] [address] [place] [address] [place] [address] 4 12/10/2023 11:11:30 12/10/2023 12:19:37 Idiopathic non-familial dystonia 567742218 G24.1 Dystonia 95522467 G24.3 Facial spasm 80972911 G5 1.39 Migraine without aura 56 674044 G43.009 Migraine with aura 72064 06 G43.109 [id number] Imer Lieberman MD [facility] [address] [place] [address] [place] [address] 4 03/23/2024 11:39:14 03/23/2024 17:16:47 Idiopathic non-familial dystonia 118848932 G24.1 Dystonia 93893814 G24.3 Facial spasm 60304424 G5 1.39 Migraine without aura 56 587446 G43.009 Migraine with aura 27229 06 G43.109 Health Concerns Section Related Observation LastModified by Organization Detai ls LastModified Time None Recorded Concern Status LastModified by Organization Details LastModified Time None Recorded Advance Directives Directive None Recorded Payers Encounter Date Sequence Insurance Name Policy Number Policy Leone Covered Member ID Leone Member ID Guarantor Name 05/28/2023 1 [facility] [place] Ute Ashlyn [id number] Ute Ashlyn 10/07/2023 1 [facility] [place] [place] Ute Ashlyn [id number] Ute Ashlyn 11/11/2023 1 [facility] [place] [place] Ute Ashlyn [id number] Ute Ashlyn 12/10/2023 1 [facility] [place] [place] Ute Ashlyn [id number] Ute Ashlyn 03/23/2024 1 [facility] [place] [place] Ute Ashlyn [id number] Ute Ashlyn Notes Date Note Type Note [...] She is working with Andreina Greer APRN, [facility] and will be [...] but she has also been to her code enforcement supervisor/ophthalm ologist and had her glasses changed but [...] She came in later that day to cone picker the Aimovig 70 mg/mL sample and [...] with psychiatry on this. Imer Lieberman MD [address] [place] [address] [place], [address], [facility] 05/28/2023 13:26:47 10/07/2023 text/html Follow-up [...] She is working with Andreina Greer APRN, [facility] comprehensive [facility] management center and will be [...] but she has also been to her code enforcement supervisor/ophthalm ologist and had her glasses changed but [...] She came in later that day to cone picker the Aimovig 70 mg/mL sample and [...] with psychiatry on this. Imer Lieberman MD [address] [place] [address] [place] Caro YAKOV, [phone], [facility] 10/13/2023 11:40:53 11/11/2023 text/html Follow-up [...] She is working with Andreina Greer APRN, [facility] comprehensive pain management center and will be [...] but she has also been to her code enforcement supervisor/ophthalm ologist and had her glasses changed but [...] She came in later that day to cone picker the Aimovig 70 mg/mL sample and [...] with psychiatry on this. Imer Lieberman MD [address] [place] [address], [phone], [facility] 11/11/2023 11:32:39 12/10/2023 text/html Follow-up [...] She is working with Andreina Greer APRN, [facility] comprehensive pain management center and will be [...] but she has also been to her code enforcement supervisor/ophthalm ologist and had her glasses changed but [...] She came in later that day to cone picker the Aimovig 70 mg/mL sample and [...] with psychiatry on this. Imer Lieberman MD [address] [place] [address] [place], [address], [facility] 12/10/2023 12:17:54 03/23/2024 text/html Follow-up [...] She is working with Andreina Greer APRN, [facility] comprehensive pain management center and will be [...] but she has also been to her code enforcement supervisor/ophthalm ologist and had her glasses changed but [...] She came in later that day to cone picker the Aimovig 70 mg/mL sample and [...] with psychiatry on this. Imer Lieberman MD [address] [place] [address] [place], [address], [facility] 03/23/2024 13:04:47 OBGyn Episode No OBEpisode recorded.
== END 2024-09-07 11:19 | disposition home or self-care (01) ==
LOC: HO.PMC 10:46
PROVIDERS: PCP Internal Medicine; Visit Provider Nurse Practitioner Family
DX: M62.830 Muscle spasm of back (principal); M54.16 Radiculopathy, lumbar region; M51.369 Other intervertebral disc degeneration, lumbar region without mention of lumbar back pain or lower extremity pain; M54.51 Vertebrogenic low back pain
CPT/HCPCS: 99214; G2211

== ENCOUNTER → 2024-09-07 10:46 | Outpatient (BNVA) | payer OTHER, SELFPAY | PROVIDERS: PCP Internal Medicine; Visit Provider Nurse Practitioner Family | DX: M54.16 Radiculopathy, lumbar region (principal); M54.51 Vertebrogenic low back pain; M51.369 Other intervertebral disc degeneration, lumbar region without mention of lumbar back pain or lower extremity pain; M62.830 Muscle spasm of back | CPT/HCPCS: 99212 ==

== ENCOUNTER 2024-09-22 10:13 | Outpatient (REF) | payer OTHER, SELFPAY ==
--- NOTE | ~2024-09-22 | MR_ITS ---
EXAMINATION: MR LUMBAR SPINE WITHOUT CONTRAST CLINICAL INFORMATION: Radiculopathy, lumbar region. COMPARISON: February 26, 2023. TECHNIQUE: MRI of the lumbar spine was obtained using routine sequences without contrast. FINDINGS: Last rib-bearing vertebra labeled T12. Marginal osteophyte formation and disc desiccation at L5-S1. No bone marrow STIR signal abnormality. Normal alignment. Conus colitis in central inferior endplate of L1 with normal signal. T12-L1: No disc herniation. No neuroforamina stenosis. L1-2: No disc herniation. No neuroforamina stenosis. L2-3: Mild broad-based disc bulging. No disc herniation. No neuroforamina stenosis. L3-4: Broad-based disc bulging. No disc herniation. Facet joint and ligamentum flavum hypertrophy. No compression upon neural elements. L4-5: Broad-based disc bulging. Facet joint and ligamentum flavum hypertrophy. No compression upon neural elements. L5-S1: There is a broad-based disc herniation abutting the S1 nerve roots. Facet joint hypertrophy resulting in bilateral neuroforamina stenosis encroaching the L4 exiting nerve roots. No prevertebral compartment hematoma, mass or fluid collection. There are multiple large cystic lesions in the renal pelvis of the left kidney. Soft tissue fullness, left adrenal gland. MR/MR lumbar spine wo con IMPRESSION: Multilevel spondylosis more conspicuous at L5-S1 with a broad-based disc herniation encroaching the S1 and L5 nerve roots. Electronically signed by: Sandoval Bain MD 09/22/2024 12:44 PM EDT
[2024-09-22 10:43] LABS: MANUAL DIFF FLAG NO
[2024-09-22 11:22] LABS: Basophils Percent Auto 0.5 % (0-2); Eosinophils Absolute Auto 0.1 X10*3/uL (0.0-0.4); Eosinophils Percent Auto 1.2 % (0-4); Hematocrit 40.8 % (37.0-47.0); Hemoglobin 12.4 g/dl (12.0-16.0); Imm Gran Abs Auto 0.04 X10*3/uL (0.00-0.03); Imm Gran Pct Auto 0.5 % (0.0-0.4); Lymphocytes Absolute Auto 2.8 X10*3/uL (1.2-4.9); Lymphocytes Percent Auto 35.3 % (20-40); Mean Corpuscular HGB Conc 30.4 g/dl (31.0-35.0); Mean Corpuscular Hemoglobin 29.2 pg (27.0-33.0); Mean Platelet Volume 11.4 fL (9.4-12.3); Monocytes Absolute Auto 0.5 X10*3/uL (0.1-1.2); Monocytes Percent Auto 6.9 % (2-11); Neutrophils Absolute Auto 4.3 x10*3/uL (2.0-8.3); Neutrophils Percent Auto 55.6 % (45-73); Platelet Count 260 X10*3/uL (160-400); Red Blood Count 4.25 X10*6/uL (4.20-5.50); Red Cell Distribution Width 13.8 % (11.0-16.0); White Blood Count 7.8 X10*3/uL (4.8-10.8)
[2024-09-22 11:35] LABS: Estimated Average Glucose 154 mg/dL; Hemoglobin A1C 172.4272 umol/L; Total Hemoglobin (HGBA1C) 3252.1745 umol/L
--- OUTSIDE RECORDS SUMMARY | 2024-09-22 11:48 | XMS_ITS | Encounter Summary ---
Author Organization [facility], Address [address] [place] [address] Phone Care Team Providers Care Ict Analyst Name Role Phone Villa Lr MD Primary Care Provider [phone]- [phone] Encounter Details Date Type Department Care Team (Late st Contact Info) Description 09/01/2024 1:15 PM EST Office Visit [facility], [address] [place] [phone] Abdulkadir Osorio MD [address] [place] [address] [place] [phone] Chronic kidney disease, stage 2 (mild) (Primary [...] well. No new complaints. Labs done at [facility], not available. MRIof the abdomen showed renal [...] tablet by mouth at bed time Creon 27710-20275 units capsule TOME 1 C PSULA POR [...] Visit [facility], [address] [place] [phone] Abdulkadir Osorio MD [address] [place] [address] [place] [phone] Scheduled Orders Name Type Priority Associated Diagnoses [...] Primary documented in this encounter Care Teams Ict Analyst Relationship Specialty Start Date End Date Villa Lr MD [address] [place] [address] [address] [place] [address] PCP - General 05/04/19 documented as of this encounter
--- OUTSIDE RECORDS SUMMARY | 2024-09-22 11:49 | XMS_ITS | Encounter Summary ---
Author Organization [facility], Address [address] [place] [address] Phone Care Team Providers Care Photovoltaic Installer Name Role Phone Villa Lr MD Primary Care Provider [phone]- [phone] Encounter Details Date Type Department Care Team (Late st Contact Info) Description 06/10/2022 Documentation Only [facility], [address] [place] [address] Abdulkadir Osorio MD [address] [place] [address] [place] [address] Social History Tobacco Use Types [...] Visit [facility], [address] [place] [address] Abdulkadir Osorio MD [address] [place] [address] documented as of this encounter Visit Diagnoses Not on filedocumented in this encounter Care Teams Photovoltaic Installer Relationship Specialty Start Date End Date Villa Lr MD [address] [place] [address] PCP - General 05/04/19 documented as of this encounter
--- OUTSIDE RECORDS SUMMARY | 2024-09-22 11:49 | XMS_ITS | Clinical Summary ---
Author Organization [facility], Address [address] [place] [address] [place] [address] Phone Care Team Providers Care Entry Examiner Name Role Phone Villa Lr MD Primary Care Provider [phone] Allergies No known active allergies Medications clonazePAM [...] D BEFORE MEALS DIRECTED. 1 Active Creon 47792-29723 units capsule TOME 1 C PSULA POR [...] Visit [facility], [address] [place] [address] Abdulkadir Osorio MD Chronic kidney disease, [...] Visit [facility], [address] [place] [address] Abdulkadir Osorio MD [address] [place] [address] Health Maintenance Due Date Last Done [...] Glucose 105(H) 70 - 99 mg/dL [facility] Uric Acid 3.8 2.6 - 6.2 mg/dL [facility] Comment:Therapeutic target f or gout patients: <6.0 BUN 11 6 - 24 mg/dL [facility] Creatinine 0.58 0.57 - 1.00 mg/dL [facility] eGFR CKD-EPI CR 2020 112 >59 mL/min/1.7 3 [facility] BUN/Creatinine Ratio 19 9 - 23 [facility] Sodium 139 134 - 144 mmol/L [facility] Potassium 4.3 3.5 - 5.2 mmol/L [facility] Chloride 103 96 - 106 mmol/L [facility] Bicarbonate (CO2) 22 20 - 29 mmol/L [facility] Anion Gap 14.0 10.0 - 18.0 mmol/L [facility] Calcium 9.9 8.7 - 10.2 mg/dL [facility] Total Protein 6.6 6.0 - 8.5 g/dL [facility] Albumin 4.2 3.9 - 4.9 g/dL [facility] Globulin 2.4 1.5 - 4.5 g/dL [facility] Phosphorus 3.4 3.0 - 4.3 mg/dL [facility] 07/05/2024 11:4 4 AM EST 07/05/2024 us Abdulkadir Osorio MD LAB [id number] OLICITED RESULTS Final Result [facility] [address] [place] [address] * Microscopic Examination (07/05/2024 11:44 AM EST) WBC, Urine None seen 0 - 5 /hpf [facility] RBC, Urine None seen 0 - 2 /hpf [facility] Squamous Epithelial, Urine 0-10 0 - 10 /hpf [facility] Casts None seen None seen /lpf [facility] Bacteria, Urine None seen None seen/Few [facility] 07/05/2024 11:4 4 AM EST 07/05/2024 us Abdulkadir Osorio MD LAB MICROBIOLOGY - GENERAL ORD ERABLES Final Result [facility] [address] [place] [address] * (ABNORMAL) Iron Panel (Fe, TIBC, TSAT) (07/05/2024 11:44 AM EST) TIBC 385 250 - 450 ug/dL [facility] UIBC 348 131 - 425 ug/dL [facility] Iron 37 27 - 159 ug/dL [facility] Iron Saturation (TSat) 10(L) 15 - 55 % [facility] 07/05/2024 11:4 4 AM EST 07/05/2024 us Abdulkadir Osorio MD LAB BLOOD ORDERABLES Final Res ult Performing Organization Address [facility] de Phone Number RUBEN Ruben Terell [address] [place] [address] * Urine Albumin / Creatinine Ratio (07/05/2024 11:44 AM EST) Creatinine, Ur 55.2 Not Estab. mg/dL [facility] Urine Microalbumin <3.0 Not Estab. ug/mL [facility] Microalbumin/Crea tinine Ratio <5 0 - 29 mg/g creat [facility] Comment: ? Normal: ?0 - ??29 ? Moderately increased: 30 - 300 ? Severely increased: ? >300 07/05/2024 11:4 4 AM EST 07/05/2024 us Abdulkadir Osorio MD LAB URINE ORDERABLES Final Res ult Performing Organization Address [facility] de Phone Number JJ Miranda [address] [place] [address] * Vitamin D 25 Hydroxy (07/05/2024 11:44 AM EST) Vitamin D, 25-OH, Total 30.0 30.0 - 100.0 ng/mL [facility] Comment: Vitamin D deficiency has been defined by the [place] [employer] and an Endocrine Society practice guideline as a level of serum 25-OH vitamin D less than 20 ng/mL (1,2). The Endocrine Society went on to further define vitamin D insufficiency as a level between 21 and 29 ng/mL (2). 1. IOM ([place] of [employer]). 2010. Dietary reference ?? intakes [...] BLOOD ORDERABLES Final Res ult [facility] [address] [place] [address] * (ABNORMAL) Urinalysis with microscopic (07/05/2024 11:44 AM EST) Specific [place], Urine 1.011 1.005 - 1.030 [facility] pH Urine 8.0(H) 5.0 - 7.5 [facility] [phone] Color, Urine Yellow Yellow [facility] Appearance Urine Clear Clear [facility] [phone] WBC Esterase Urine Negative Negative [facility] Protein, Ur Negative Negative/Tra ce [facility] [phone] Glucose, Ur Negative Negative [facility] [phone] Ketones, Urine Negative Negative [facility] Blood Urine Negative Negative [facility] Bilirubin Urine Negative Negative [facility] [phone] Urobilinogen Urine 0.2 0.2 - 1.0 mg/dL [facility] Nitrite, Urine Negative Negative [facility] Microscopic Examination Comment [facility] [phone] Comment:Microscopic follows if indicated. Other Microsc. Observations See below: [facility] Comment:Microscopic was casper cated and was performed. 07/05/2024 11:4 4 AM EST 07/05/2024 us Abdulkadir Osorio MD LAB URINE ORDERABLES Final Res ult [facility] [address] [place] [address] * (ABNORMAL) CBC and Differential (07/05/2024 11:44 AM EST) WBC 7.6 3.4 - 10.8 x10E3/uL [facility] RBC 4.00 3.77 - 5.28 x10E6/uL [facility] Hemoglobin 11.7 11.1 - 15.9 g/dL [facility] Hematocrit 38.1 34.0 - 46.6 % [facility] MCV 95 79 - 97 fL [facility] MCH 29.3 26.6 - 33.0 pg [facility] MCHC 30.7(L) 31.5 - 35.7 g/dL [facility] RDW 13.1 11.7 - 15.4 % [facility] Platelets 284 150 - 450 x10E3/uL [facility] Neutrophils Relative 61 Not Estab. % [facility] Lymphocytes Relative 30 Not Estab. % [facility] Monocytes 8 Not Estab. % [facility] Eosinophils Relative 1 Not Estab. % [facility] Basophils Relative 0 Not Estab. % [facility] Neutrophils Absolute 4.6 1.4 - 7.0 x10E3/uL [facility] Lymphocytes Absolute 2.3 0.7 - 3.1 x10E3/uL [facility] Monocytes Absolute 0.6 0.1 - 0.9 x10E3/uL [facility] Eosinophils Absolute 0.1 0.0 - 0.4 x10E3/uL [facility] Basophils Absolute 0.0 0.0 - 0.2 x10E3/uL [facility] Immature Granulocytes 0 Not Estab. % [facility] Immature Grans (Absolute) 0.0 0.0 - 0.1 x10E3/uL [facility] 07/05/2024 11:4 4 AM EST 07/05/2024 Abdulkadir Osorio MD LAB BLOOD ORDERABLES Final Res ult [facility] [address] [place] [address] * PTH, Intact (07/05/2024 11:44 AM EST) PTH 20 15 - 65 pg/mL [facility] 07/05/2024 11:4 4 AM EST 07/05/2024 us Abdulkadir Osorio MD LAB BLOOD ORDERABLES Final Res ult [facility] [address] [place] [address] * Magnesium (07/05/2024 11:44 AM EST) Magnesium 1.9 1.6 - 2.3 mg/dL [facility] 07/05/2024 11:4 4 AM EST 07/05/2024 Abdulkadir Osorio MD LAB BLOOD ORDERABLES Final Res ult Performing Organization Address City/[facility]/ZIP Co de Phone Number [facility] [address] [place] [address] * (ABNORMAL) Hemoglobin A1c (07/05/2024 11:44 AM EST) Hemoglobin A1C 7.4(H) 4.8 - 5.6 % [facility] Comment: ? Prediabetes: 5.7 - 6.4 ? Diabetes: >6.4 ? Glycemic control for adults with diabetes: <7.0 07/05/2024 11:4 4 AM EST 07/05/2024 Abdulkadir Osorio MD LAB BLOOD ORDERABLES Final Res ult Performing Organization Address [facility] Co de Phone Number [facility] [address] [place] [address] * (ABNORMAL) Ferritin (07/05/2024 11:44 AM EST) Ferritin 11(L) 15 - 150 ng/mL [facility] 07/05/2024 11:4 4 AM EST 07/05/2024 Abdulkadir Osorio MD LAB BLOOD ORDERABLES Final Res ult Performing Organization Address City/[facility]/ZIP Co de Phone Number [facility] [address] [place] [address] from Last 3 Months [facility] Care Teams Entry Examiner Relationship Specialty Start Date End Date Villa Lr MD [address] [place] [address] PCP - General 05/04/19
--- OUTSIDE RECORDS SUMMARY | 2024-09-22 11:49 | XMS_ITS | Encounter Summary ---
Author Organization [employer] [facility] Address [address] [place] [address] Care Team Providers Care Instrumental Musician Name Role Phone Unavailable Primary Care Provider Unavailabl e Encounter Details Date Type Department Care Team (Latest Contact Info) Description 03/18/2019 Abstract [facility] CONVERSIONS Dental, Provider, DDS [...]
--- OUTSIDE RECORDS SUMMARY | 2024-09-22 11:49 | XMS_ITS | Data Portability ---
Author Organization [facility] [employer] Address [address] [place] [address] Care Team Providers Care Seal Skinner Name Role Phone LATIA RASHID Referring Provider [phone] LATIA RASHID Primary Care Provider Assessment Encounter [...] today, I reviewed the propranolol prescription in [place] and noted that she had a 90-day [...] with April 2023 confirmation of medications from [facility]) -From [facility]: propranolol 60 mg twice daily topiramate 100 mg twice daily, Aimovig 140 mg/mL monthly autoinjector and Ubrelvy 100 mg as needed for breakthrough migraine from [facility] (she was also concurrently on rizatriptan [...] with April 2023 confirmation of medications from [facility]) -From [facility]: propranolol 60 mg twice daily topiramate 100 mg twice daily, Aimovig 140 mg/mL monthly autoinjector and Ubrelvy 100 mg as needed for breakthrough migraine from [facility] (she was also concurrently on rizatriptan [...] la versi? ? ?n gratuita del traductor [employer] (with edits by me) -Continue propranolol 60mg [...] with April 2023 confirmation of medications from [facility]) -From [facility]: propranolol 60 mg twice daily topiramate 100 mg twice daily, Aimovig 140 mg/mL monthly autoinjector and Ubrelvy 100 mg as needed for breakthrough migraine from [facility] (she was also concurrently on rizatriptan [...] extra dose in her refrigerator and to pickers material handlers the new prescription when it gets. Therefore, [...] with April 2023 confirmation of medications from [facility]) -From [facility]: propranolol 60 mg twice daily topiramate 100 mg twice daily, Aimovig 140 mg/mL monthly autoinjector and Ubrelvy 100 mg as needed for breakthrough migraine from [facility] (she was also concurrently on rizatriptan [...] extra dose in her refrigerator and to pickers material handlers the new prescription when it gets. Therefore, [...] with April 2023 confirmation of medications from [facility]) -From [facility]: propranolol 60 mg twice daily topiramate 100 mg twice daily, Aimovig 140 mg/mL monthly autoinjector and Ubrelvy 100 mg as needed for breakthrough migraine from [facility] (she was also concurrently on rizatriptan [...] mL subcutane ous auto-inje ctor 2023 024 [id number] [address] [place], [address], 03/23/2024 12:47:06 Ubrelvy 100 mg tablet 2023 024 [id number], [address] [place], [address], 03/23/2024 12:47:07 Ajovy 225 mg/1.5 mL subcutane ous auto-inje ctor 2023 024 [id number] [address] [place], [address], 12/10/2023 12:17:38 propranol ol 60 mg tablet 2023 024 [id number] [address] [place], [address], 11/11/2023 11:21:02 topiramat e 50 mg tablet 2023 024 [facility] [address] [place], [address], 11/11/2023 11:21:03 Aimovig Autoinjec tor 140 mg/mL subcutane ous auto-inje ctor 2023 024 [id number] [address] [place], [address], 03/23/2024 12:59:57 Ubrelvy 100 mg tablet 2023 024 [facility], [address] [place], [address], 11/11/2023 11:21:02 topiramat e 100 mg tablet 2023 024 [facility], [address] [place], [address], 10/07/2023 10:22:21 propranol ol 60 mg tablet 2023 024 [facility], [address] [place], [address], 10/07/2023 10:22:21 Aimovig Autoinjec tor 140 mg/mL subcutane ous auto-inje ctor 2023 024 [facility] [address] [place], [address], 03/23/2024 12:59:57 Ubrelvy 100 mg tablet 2023 024 [facility], [address] [place], [address], 10/07/2023 10:22:21 topiramat e 100 mg tablet 2022 023 [facility], [address] [place], [address], 05/28/2023 09:56:01 propranol ol 60 mg tablet 2022 023 [facility], [address] [place], [address], 05/28/2023 09:56:01 Aimovig Autoinjec tor 140 mg/mL subcutane ous auto-inje ctor 2022 023 [facility] [address] [place], [address], 03/23/2024 12:59:57 Ubrelvy 100 mg tablet 2022 023 [id number], [address] [facility], [place], [address], 05/28/2023 09:56:01 Patient TargetsNo targets recorded. 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 She will pickers material handlers a sample today. 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 She will pickers material handlers a sample today. 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 She will pickers material handlers a sample today. 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 She will pickers material handlers a sample today. She will follow-up in [...] management cyndy Not available 12/10/2023 11:56:12 03/23/2024 [id number] Her is a former awrqk-xa-twesr long-filling hauler weaving PREVIOUS MEDICATIONS Amitriptyline 75 mg, February 2024 [...] today, I reviewed the propranolol prescription in [place] and noted that she had a 90-day [...] every day. She was running out of UbrelCutting Edge Wheels for breakthrough migraine reported October 01, 2022. [...] not discuss the addition of rizatriptan through [employer] which we have discussed previously as she [...] over the potential side effects. She will pickers material handlers a sample today. 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 Procedures Surgical History Date Name Laterality Status Provider Name and Address Organization Details Recorded Time 4 botulinum injection completed Imer Lieberman MD [address] [place], [place] [address], [address], [facility] 03/23/2024 12:37:46 4 botulinum injection completed Imer Lieberman MD [address] [place], [place] [address], [address], [facility] 12/10/2023 11:56:10 4 botulinum injection completed Imer Lieberman MD [address] [place], [place] [address], [address], [facility] 11/11/2023 11:10:22 4 botulinum injection completed ENRIKE NORTON PA-C [address] [place], [place] [address], [address], [facility] 10/07/2023 10:03:49 3 botulinum injection completed ENRIKE NORTON PA-C [address] [place], [place] [address], [address], [facility] 05/28/2023 09:39:33 3 botulinum injection completed ENRIKE NORTON PA-C [address] [place], [place] [address], [address], [facility] 04/24/2023 10:42:13 3 botulinum injection completed ENRIKE NORTON PA-C [address] [place], [place] [address], [address], [facility] 03/18/2023 10:47:21 3 botulinum injection completed ENRIKE NORTON PA-C [address] [place], [place] [address], [address], [facility] 01/23/2023 09:59:39 3 botulinum injection completed ENRIKE NORTON PA-C [address] [place] [address] B, YAKOV [place], [address], [facility] 12/19/2022 11:33:40 3 botulinum injection completed ENRIKE NORTON PA-C [address] [place] [address] B, YAKOV [place], [address], [facility] 11/28/2022 13:56:45 3 botulinum injection completed ENRIKE NORTON PA-C [address] [place] [address] B, YAKOV [place], [address], [facility] 10/29/2022 10:47:52 3 botulinum injection completed ENRIKE NORTON PA-C [address] [place] [address] B, YAKOV [place], [address], [facility] 10/01/2022 13:50:41 3 botulinum injection completed Imer Lieberman MD [address] [place] [address] B, YAKOV [place], [address], [facility] 08/14/2022 17:00:39 3 botulinum injection completed ENRIKE NORTON PA-C [address] [place] [address] B, YAKOV Monter[place], [address], [facility] 07/09/2022 14:05:58 2 botulinum injection completed Imer Lieberman MD [address] [place] [address] B, YAKOV Montero, [address], [facility] 05/16/2022 13:33:52 2 botulinum injection completed ENRIKE NORTON PA-C [address] [place] [address] B, YAKOV Montero, [address], [facility] 03/14/2022 14:10:23 2 botulinum injection completed Imer Lieberman MD [address] [place] [address] B, YAKOV Montero, [address], [facility] 02/13/2022 09:15:23 2 botulinum injection completed ENRIKE NORTON PA-C [address] [place] [address], YAKOV Montero, [address], [facility] 12/06/2021 13:50:32 2 botulinum injection completed Imer Lieberman MD [address] [place] [address] B, YAKOV Montero, [address], [facility] 11/07/2021 13:30:06 2 botulinum injection completed ENRIKE NORTON PA-C [address] [place] [address] B, YAKOV Montero, [address], [facility] 09/05/2021 14:12:15 2 botulinum injection completed Imer Lieberman MD [address] [place] [address], YAKOV Montero, [address], [facility] 07/25/2021 15:27:34 2 botulinum injection completed ENRIKE NORTON PA-C [address] [place] [address], YAKOV Montero, [address], [facility] 07/12/2021 08:55:03 1 botulinum injection completed ENRIKE NORTON PA-C [address] [place] [address] B, YAKOV Montero, [address], [facility] 05/29/2021 22:54:52 1 botulinum injection completed Imer Lieberman MD [address] [place] [address], YAKOV Montero, [address], [facility] 04/25/2021 14:30:46 1 botulinum injection completed Imer Lieberman MD [address] [place] [address], YAKOV Montero, [address], [facility] 01/24/2021 19:05:02 1 botulinum injection completed Imer Lieberman MD [address] [place] [address] B, YAKOV Montero, [address], [facility] 10/25/2020 18:09:08 Imaging Results None recorded. 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 Dystonia 91716744 G24.3 Facial spasm 43754110 G5 1.39 Migraine without aura 56 731201 G43.009 [id number] Imer Lieberman MD [facility] [address] [place] [address] JOSE RETANAYAKOV RICHARD [address] 4 01/24/2021 14:50:22 01/25/2021 08:16:40 Idiopathic non-familial dystonia 303472369 G24.1 Dystonia 36109985 G24.3 Facial spasm 00417220 G5 1.39 Migraine without aura 56 607688 G43.009 [id number] Imer Lieberman MD [facility] [address] [place] [address] JOSE RETANAYAKOV RICHARD [address]896 4 02/28/2021 11:51:24 02/28/2021 12:29:37 Idiopathic non-familial dystonia 681568083 G24.1 Dystonia 10189810 G24.3 Facial spasm 96754996 G5 1.39 Migraine without aura 56 093699 G43.009 [id number] Imer Lieberman MD [facility] [address] [place] [address] JOSE RETANAYAKOV RICHARD [address]878 4 04/25/2021 12:22:14 04/26/2021 07:40:15 Idiopathic non-familial dystonia 960154025 G24.1 Dystonia 66543796 G24.3 Facial spasm 66353527 G5 1.39 Migraine without aura 56 890582 G43.009 [id number] Imer Lieberman MD [facility] [address] [place] [address] JOSE RETANAYAKOV RICHARD [address]33[address]-780 4 05/29/2021 10:02:07 05/30/2021 15:05:44 Idiopathic non-familial dystonia 341534350 G24.1 Dystonia 61559866 G24.3 Facial spasm 17235576 G5 1.39 Migraine without aura 56 131461 G43.009 Migraine with aura 39795 06 G43.109 [id number] Imer Lieberman MD [facility] [address] [place] [address] Gordo MONTERO YAKOV [address]-750 4 07/12/2021 08:51:06 08/03/2021 15:14:49 Idiopathic non-familial dystonia 257424191 G24.1 Dystonia 47878042 G24.3 Facial spasm 01713909 G5 1.39 Migraine without aura 56 602193 G43.009 [id number] Imer Lieberman MD [facility] [address] [place] [address] Gordo MONTERO YAKOV [address]-259 4 07/25/2021 13:52:53 07/25/2021 16:35:44 Idiopathic non-familial dystonia 576876091 G24.1 Dystonia 24543921 G24.3 Facial spasm 16809427 G5 1.39 Migraine without aura 56 775023 G43.009 [id number] Imer Lieberman MD [facility] [address] [place] [address] Gordo MONTEROYAKOV 630[address]867 4 09/05/2021 14:01:17 09/10/2021 10:57:43 Idiopathic non-familial dystonia 487958993 G24.1 Dystonia 15984461 G24.3 Facial spasm 29043174 G5 1.39 Migraine without aura 56 640332 G43.009 [id number] Imer Lieberman MD [facility] [address] [place] [address] JOSE RETANAYAKOV RICHARD 28465-378 4 11/07/2021 12:25:50 11/07/2021 18:58:37 Idiopathic non-familial dystonia 974173372 G24.1 Dystonia 72602345 G24.3 Facial spasm 12306639 G5 1.39 Migraine without aura 56 983169 G43.009 [id number] Imer Lieberman MD [facility] [address] [place] [address] Gordo RETANAWINSTONYAKOV RICHARD 84268-264 4 12/06/2021 13:06:48 12/10/2021 15:27:19 Idiopathic non-familial dystonia 674499800 G24.1 Dystonia 98219221 G24.3 Facial spasm 54833221 G5 1.39 Migraine without aura 56 806514 G43.009 [id number] Imer Lieberman MD [facility] [address] [place] [address] Gordo YAKOV MONTERO 34726-846 4 02/13/2022 07:56:35 02/13/2022 09:24:50 Idiopathic non-familial dystonia 890424880 G24.1 Dystonia 33543994 G24.3 Facial spasm 22876977 G5 1.39 Migraine without aura 56 706183 G43.009 6451 Imer Lieberman MD [facility] [address] [place] [address] Gordo YAKOV MONTERO 39070-441 4 03/14/2022 13:58:56 03/19/2022 09:35:39 Idiopathic non-familial dystonia 230533694 G24.1 Dystonia 80595817 G24.3 Facial spasm 18874421 G5 1.39 Migraine without aura 56 741544 G43.009 7012 Imer Lieberman MD [facility] [address] [place] [address] Gordo YAKOV MONTERO 89604-190 4 05/16/2022 11:40:07 05/16/2022 15:55:55 Idiopathic non-familial dystonia 131871185 G24.1 Dystonia 00840201 G24.3 Facial spasm 46542719 G5 1.39 Migraine without aura 56 697118 G43.009 [id number] Imer Lieberman MD [facility] [address] [place] [address] Gordo YAKOV MONTERO 69067-711 4 07/09/2022 13:59:24 07/25/2022 12:39:21 Idiopathic non-familial dystonia 760946479 G24.1 Dystonia 61834500 G24.3 Facial spasm 07032607 G5 1.39 Migraine without aura 56 052509 G43.009 Migraine with aura 34512 06 G43.109 7846 Imer Lieberman MD [facility] [address] [place] [address] Gordo YAKOV MONTERO [id number] 4 08/14/2022 15:04:31 08/14/2022 17:43:36 Idiopathic non-familial dystonia 498848068 G24.1 Dystonia 87282598 G24.3 Facial spasm 80728814 G5 1.39 Migraine without aura 56 310942 G43.009 [id number] ENRIKE NORTON PA-C [facility] [address] [place] [address] B YAKOV MONTERO [id number] 4 10/01/2022 13:45:47 10/03/2022 11:40:32 Idiopathic non-familial dystonia 064793242 G24.1 Dystonia 19676091 G24.3 Facial spasm 58021675 G5 1.39 Migraine without aura 56 759658 G43.009 Migraine with aura 28845 06 G43.109 [id number] Imer Lieberman MD [facility] [address] [place] [address] JOSE RETANAHILARY YAKOV [id number] 4 10/29/2022 10:18:41 11/04/2022 15:06:43 Idiopathic non-familial dystonia 503054397 G24.1 Dystonia 06055974 G24.3 Facial spasm 80804484 G5 1.39 Migraine without aura 56 184357 G43.009 Migraine with aura 53644 06 G43.109 9112 ENRIKE NORTON PA-C [facility] [address] [place] [address] JOSE RETANAYAKOV RICHARD 99714-324 4 11/28/2022 13:27:59 12/02/2022 15:28:22 Idiopathic non-familial dystonia 182496898 G24.1 Dystonia 47599682 G24.3 Facial spasm 03940713 G5 1.39 Migraine without aura 56 748767 G43.009 Migraine with aura 68990 06 G43.109 9373 Imer Lieberman MD [facility] [address] [place] [address] JOSE MONTERO YAKOV 81165-268 4 12/19/2022 11:07:15 12/23/2022 16:34:25 Idiopathic non-familial dystonia 380552338 G24.1 Dystonia 19353767 G24.3 Facial spasm 66212631 G5 1.39 Migraine without aura 56 378463 G43.009 Migraine with aura 97342 06 G43.109 [id number] Imer Lieberman MD [facility] [address] [place] [address] JOSE Gordo RETANAWINSTONYAKOV RICHARD [id number] 4 01/23/2023 09:21:21 02/10/2023 16:21:14 Idiopathic non-familial dystonia 744003613 G24.1 Dystonia 10756491 G24.3 Facial spasm 86316254 G5 1.39 Migraine without aura 56 760970 G43.009 Migraine with aura 09872 06 G43.109 [id number] Imer Lieberman MD [facility] [address] [place] [address] Gordo MONTERO YAKOV 70851-579 4 03/18/2023 10:30:58 03/19/2023 17:32:28 Idiopathic non-familial dystonia 177583747 G24.1 Dystonia 53363258 G24.3 Facial spasm 93900648 G5 1.39 Migraine without aura 56 172049 G43.009 Migraine with aura 70384 06 G43.109 [id number] ENRIKE NORTON PA-C [facility] [address] [place] [address] Gordo MONTERO YAKOV 24446-970 4 04/24/2023 10:15:35 04/30/2023 10:38:58 Idiopathic non-familial dystonia 481933533 G24.1 Dystonia 92696455 G24.3 Facial spasm 57966825 G5 1.39 Migraine without aura 56 421436 G43.009 Migraine with aura 95022 06 G43.109 [id number] Imer Lieberman MD [facility] [address] [place] [address] Gordo RETANAWINSTON, YAKOV 34125-927 4 05/28/2023 09:14:15 05/29/2023 16:35:04 Idiopathic non-familial dystonia 311204355 G24.1 Dystonia 91297119 G24.3 Facial spasm 70737491 G5 1.39 Migraine without aura 56 839422 G43.009 Migraine with aura 27967 06 G43.109 [id number] Imer Lieberman MD [facility] [address] [place] [address] Gordo RETANAWINSTONYAKOV RICHARD 81496-211 4 10/07/2023 09:31:55 10/13/2023 13:14:20 Idiopathic non-familial dystonia 677682653 G24.1 Dystonia 92740966 G24.3 Facial spasm 31717425 G5 1.39 Migraine without aura 56 705222 G43.009 Migraine with aura 78839 06 G43.109 [id number] Imer Lieberman MD [facility] [address] [place] [address] Gordo RETANAWINSTON, YAKOV 10770-772 4 11/11/2023 10:36:51 11/11/2023 11:43:45 Idiopathic non-familial dystonia 705491460 G24.1 Dystonia 86958490 G24.3 Facial spasm 07815484 G5 1.39 Migraine without aura 56 899895 G43.009 Migraine with aura 23910 06 G43.109 [id number] Imer Lieberman MD [facility] [address] [place] [address] [place] [address]-985 4 12/10/2023 11:11:30 12/10/2023 12:19:37 Idiopathic non-familial dystonia 093941150 G24.1 Dystonia 19765541 G24.3 Facial spasm 86967064 G5 1.39 Migraine without aura 56 881030 G43.009 Migraine with aura 50840 06 G43.109 [id number] Imer Lieberman MD [facility] [address] [place] [address] [place] [address] 4 03/23/2024 11:39:14 03/23/2024 17:16:47 Idiopathic non-familial dystonia 969024070 G24.1 Dystonia 59915285 G24.3 Facial spasm 97363237 G5 1.39 Migraine without aura 56 137206 G43.009 Migraine with aura 09271 06 G43.109 Health Concerns Section Related Observation LastModified by Organization Detai ls LastModified Time None Recorded Concern Status LastModified by Organization Details LastModified Time None Recorded Advance Directives Directive None Recorded Payers Encounter Date Sequence Insurance Name Policy Number Policy Leone Covered Member ID Leone Member ID Guarantor Name 05/28/2023 1 [facility] [place] Ute Ashlyn [id number] Ute Ashlyn 10/07/2023 1 [facility] [place] Ute Ashlyn [id number] Ute Ashlyn 11/11/2023 1 [facility] [place] Ute Ashlyn [id number] Ute Ashlyn 12/10/2023 1 [facility] [place] Ute Ashlyn [id number] Ute Ashlyn 03/23/2024 1 [facility] [place] Ute Ashlyn [id number] Ute Ashlyn Notes Date Note Type Note [...] working with Andreina Greer APRN, [facility] and will be [...] but she has also been to her fast food worker/ophthalm ologist and had her glasses changed but [...] She came in later that day to pickers material handlers the Aimovig 70 mg/mL sample and ? [...] with psychiatry on this. Imer Lieberman MD [address] [place] [address] [place], [address], [facility] 05/28/2023 13:26:47 10/07/2023 text/html Follow-up breakthrough [...] working with Andreina Greer APRN, [facility] and will be [...] but she has also been to her fast food worker/ophthalm ologist and had her glasses changed but [...] She came in later that day to pickers material handlers the Aimovig 70 mg/mL sample and ? [...] with psychiatry on this. Imer Lieberman MD [address] [place] [address] Winston Caro YAKOV, [address], [facility] 10/13/2023 11:40:53 11/11/2023 text/html Follow-up of [...] working with Andreina Greer APRN, [facility] and will be [...] but she has also been to her fast food worker/ophthalm ologist and had her glasses changed but [...] She came in later that day to pickers material handlers the Aimovig 70 mg/mL sample and ? [...] psychiatry on this. Imer Lieberman MD [address] [place] [address], [phone], [facility] 11/11/2023 11:32:39 12/10/2023 text/html Follow-up of [...] working with Andreina Greer APRN, [facility] and will be [...] but she has also been to her fast food worker/ophthalm ologist and had her glasses changed but [...] She came in later that day to pickers material handlers the Aimovig 70 mg/mL sample and ? [...] with psychiatry on this. Imer Lieberman MD [address] [place] [address] [place], [address], [facility] 12/10/2023 12:17:54 03/23/2024 text/html Follow-up of [...] working with Andreina Greer APRN, [facility] and will be [...] but she has also been to her fast food worker/ophthalm ologist and had her glasses changed but [...] She came in later that day to pickers material handlers the Aimovig 70 mg/mL sample and ? [...] with psychiatry on this. Imer Lieberman MD [address] [place] [address] [place], [id number], [facility] 03/23/2024 13:04:47 OBGyn Episode No OBEpisode recorded.
--- OUTSIDE RECORDS SUMMARY | 2024-09-22 11:49 | XMS_ITS | Clinical Summary ---
Author Organization [employer] Address [address] [place] [address] Care Team Providers Care Instrumentation And Control Technician Name Role Phone Unavailable Primary Care [...]
--- OUTSIDE RECORDS SUMMARY | 2024-09-22 11:49 | XMS_ITS | Encounter Summary ---
Author Organization [facility], Address [address] [place] [address] Phone Care Team Providers Care Renal Nurse Name Role Phone Villa Lr MD Primary Care Provider [phone] Encounter Details Date Type Department Care Team (Late st Contact Info) Description 06/16/2023 Documentation Only [facility], [address] [place] [address] Abdulkadir Osorio MD [address] [place] [address] [place] [address] Social History Tobacco Use Types [...] Visit [facility], [address] [place] [address] Abdulkadir Osorio MD [address] [place] [address] documented as of this encounter Visit Diagnoses Not on filedocumented in this encounter Care Teams Renal Nurse Relationship Specialty Start Date End Date Villa Lr MD [address] [place] [address] PCP - General 05/04/19 documented as of this encounter
--- OUTSIDE RECORDS SUMMARY | 2024-09-22 11:49 | XMS_ITS | Encounter Summary ---
Author Organization [facility] Address [address] [place] [address] Care Team Providers Care Paleology Teacher Name Role Phone Unavailable Primary Care Provider Unavailabl e Encounter Details Date Type Department Care Team (Latest Contact Info) Description 05/17/2021 Abstract [facility] CONVERSIONS Dental, Provider, DDS Social [...]
[2024-09-22 11:53] LABS: Appearance Urine Clear; Color Urine Yellow; Glucose Urine UA Negative (Negative); Leukocyte Esterase Urine Negative (Negative); Nitrite Urine Negative (Negative); Specific Gravity - Urine <= 1.005 (1.005-1.025); Urine Blood Negative (Negative); Urine Ketones Negative (Negative); Urine Protein Negative (Neg-Trace)
[2024-09-22 12:16] LABS: Alanine Aminotransferase 16 U/L (0-31); Albumin Level 4.2 g/dL (3.5-5.0); Alkaline Phosphatase 95 U/L (39-117); Anion Gap 10 (12-20); Aspartate Amino Transferase 24 U/L (5-31); Bilirubin Total 0.2 mg/dL (0.0-1.0); Blood Urea Nitrogen 9 mg/dL (9-16); Calcium 9.9 mg/dL (8.4-10.2); Carbon Dioxide 21 mmol/L (22-29); Chloride 114 mmol/L (96-108); Cholesterol 151 mg/dL (<200); Estimated Glomerular Filt Rate > 60; Glucose Fasting 127 mg/dL (60-99); HDL Cholesterol 53 mg/dL (>40); LDL Cholesterol Calculated 56 mg/dL (<100); Potassium 4.1 mmol/L (3.3-5.1); Sodium 141 mmol/L (135-145); Total Protein 7.4 g/dL (6.5-8.0); Triglycerides 214 mg/dL (<150)
[2024-09-22 12:31] LABS: Creatinine Urine 9.49 mg/dL; Microalbumin Urine < 5.0 mg/L
== END 2024-09-22 10:14 | disposition home or self-care (01) ==
LOC: HO.MRI 10:13
PROVIDERS: Absent Provider Internal Medicine; PCP Internal Medicine; Visit Provider Nurse Practitioner Family
DX: M54.16 Radiculopathy, lumbar region (principal); M54.51 Vertebrogenic low back pain; M51.369 Other intervertebral disc degeneration, lumbar region without mention of lumbar back pain or lower extremity pain; D64.9 Anemia, unspecified; E78.00 Pure hypercholesterolemia, unspecified; E11.9 Type 2 diabetes mellitus without complications; R30.0 Dysuria
CPT/HCPCS: 36415; 72148; 80053; 80061; 81003; 82043; 82570; 83036; 85025

== ENCOUNTER → 2024-09-22 10:56 | Outpatient (BNV) | payer OTHER, SELFPAY | PROVIDERS: Absent Provider Internal Medicine; PCP Internal Medicine; Visit Provider Radiology Diagnostic Radiology | DX: M47.817 Spondylosis without myelopathy or radiculopathy, lumbosacral region (principal) | CPT/HCPCS: 72148 ==

== ENCOUNTER 2024-09-27 10:38 | Outpatient (AMB) | payer OTHER, SELFPAY ==
[2024-09-27 10:42] VITALS: BP 126/80; PULSE 61; O2SAT 99; BMI 38.0
--- NOTE | 2024-09-27 10:42 | A.OFFPC_ITS ---
Vital Signs 09/27/24 10:42 Height 5 ft 4 in Weight 221 lb 8 oz BMI 38.0 BP 126/80 Blood Pressure Location Lt brachial Position Sitting Pulse 61 Pulse Source Pulse Oximeter Pulse Oximetry (%) 99 Oxygen Delivery Method Room Air Intake Visit Reasons: 4mth f/u Image Assembler Required: No Accompanied by: Self / Same As Patient Allergies meclizine Adverse Reaction (Verified 09/27/24 11:11) tachycardia metoclopramide Adverse Reaction (Verified 09/27/24 11:11) tachycardia Medication List - Last Reconciled 09/27/24 by Villa Lr MD acetaminophen 500 mg PO Q6H PRN [ADULT PULL UPS As directed] albuterol sulfate 90 mcg/actuation (Ventolin HFA) 2 puffs inhalation QID PRN alum-mag hydroxide-simeth 400-400-40 mg/5 mL (Mylanta Maximum Strength) 10 mL PO TID PRN amitriptyline 75 mg PO DAILY atorvastatin 20 mg PO BEDTIME 90 days baclofen 20 mg PO BID PRN 30 days blood sugar diagnostic (FreeStyle Lite Strips) TEST BLOOD SUGAR DIRECTED 3 TIMES A DAY budesonide 32 mcg/actuation 2 sprays intranasal DAILY PRN cane As directed cholecalciferol (vitamin D3) 50 mcg PO DAILY 90 days clonazepam 1 mg PO TID diaper,brief,adult,disposable (Depend Easy Fit Undergarments misc) As directed dicyclomine 20 mg PO BID esomeprazole magnesium 40 mg PO DAILY [FREESTYLE LITE TEST STRIPS Test blood sugar as directed 3 times a day - E11.9 -- DIABETES] FreeStyle Lite Meter (blood-glucose meter) As directed NS fremanezumab-vfrm (Ajovy) mg subcut gabapentin 300 mg PO BEDTIME hydroxyzine HCl mg PO 3XD lancets (FreeStyle Lancets) As directed- 3 times a day linaclotide (Linzess) 290 mcg PO QAM liraglutide (Victoza 3-Shamir) 1.2 mg (0.2 mL) subcut DAILY melatonin 6 mg PO BEDTIME metformin 1,000 mg PO BID 90 days methylcellulose (laxative) (Fiber Therapy (methylcellulose)) 500 mg PO BID montelukast 10 mg PO BEDTIME 90 days ondansetron 4 mg sublingual TID pen needle, diabetic (Comfort EZ Pen Willet) As directed daily pioglitazone 45 mg PO DAILY propranolol 60 mg PO BID sennosides (senna) 17.2 mg (2 x 8.6 mg) PO BEDTIME PRN sertraline 50 mg PO DAILY simethicone 180 mg PO TID terconazole 0.8% 1 appful vaginal BEDTIME 3 days topiramate 100 mg PO BID topiramate mg PO tramadol 50 mg PO TID PRN 30 days triamcinolone acetonide 1 spray intranasal DAILY ziprasidone HCl (Geodon) 80 mg PO BID Tobacco use date assessed: 09/27/24 Dental Screening Dental Screen Date: 09/27/24 Did you have a dental visit in the last 12 months?: Yes Did you have a dental problem in the last 6 months where you did not have access to dental care?: No Was dental information given to patient?: Patient has dentist HPI 4mt f/u HPI Details Patient comes in today for her follow up visit States that she has been experiencing increased pain over both of her ankles for the past few weeks She denies any recent injury or trauma to her ankles States that she feels okay otherwise She denies any headaches or dizziness Denies any chest pains, no increased shortness of breath No nausea/vomiting, no abdominal pain No change in bowel habits noted Needs her Victoza and Freestyle lancets Rx refilled She had her follow-up labs done a few days ago - to discuss her results [facility] Medical History Overactive bladder Diarrhea Morbid obesity with BMI of 40.0-44.9, adult Biliary dyskinesia Elevated TSH Obesity (BMI 30-39.9) Depression Anxiety Insomnia Obstructive sleep apnea Vitamin D deficiency 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 myelopathy or radiculopathy Elevated LFTs Allergic rhinitis Asthma Migraine Pure hypercholesterolemia Benign essential hypertension Diabetes mellitus IBS (irritable bowel syndrome) Gastroparesis Surgical History History of surgical removal of skin lesion (07/26/24) Status post epidural steroid injection History of cardiac cath Hx of tubal ligation Hx of colonoscopy (~03/2018) Hx of endoscopy History of surgery of head Hx of hysterectomy (~08/2011) Family History Father Diabetes Hypertension Heart problem Mother Arthritis Diabetes Hypertension Maternal Grandmother Breast cancer, Onset Age: 72 Family/Other Diabetes Hypertension Heart problem Social History Household Members: Spouse Housing: House Are you a primary long term care administrator to a significant other at home: No Do you presently have visiting nurse or other home services: No Alcohol intake: current Alcohol intake frequency: former alcohol drinker Comment: NOT INDICATED Patient Tobacco Use Status: Never used Tobacco e-Cigarette/Vaping Use: Never Used Second Hand Smoke Exposure: No Advance Directives Date on File: 03/20/16 service: No Current occupational status: disabled Cognitive needs: No Hearing needs: No Vision needs: Yes Female Reproductive History Menstrual Age of Menarche: 13 Questionnaire PHQ-9 Over the last 2 weeks, how often have you been bothered by any of the following problems? 1. Little interest or pleasure in doing things: not at all 2. Feeling down, depressed, or hopeless: not at all 3. Trouble falling or staying asleep, or sleeping too much: not at all 4. Feeling tired or having little energy: not at all 5. Poor appetite or overeating: not at all 6. Feeling bad about yourself - or that you are a failure or have let yourself or your family down: not at all 7. Trouble concentrating on things, such as reading the newspaper or watching television: not at all 8. Moving or speaking so slowly that other people could have noticed. Or the opposite - being so fidgety or restless that you have been moving around a lot more than usual: not at all 9. Thoughts that you would be better off or of hurting yourself in some way: not at all Total score: 0 Depression Screening Interpretation: Negative (is on Rx) Depression Screening Done: Yes 93620 - PHQ-9 Billing: Yes Source: Developed by Drs. Raymond Plunkett, Meaghan Art, Keshav Castro and colleagues, with an educational david from [employer]. Thrive Questionnaire Date Thrive assessed: 09/27/24 I am a: Patient What is your living situation today?: I have a steady place to live Within the past 12 months, did the food you bought not last and you didn't have the money to get more?: Never true Within the past 12 months, did you worry whether your food would run out before you got money to buy more?: Never true Do you have trouble paying for medicines?: No Do you have trouble getting transportation to medical appointments?: No Do you have trouble paying your heating and electricity bill?: No Do you have trouble taking care of your child, family member or friend?: No Do you have trouble with day-to-day activities such as bathing, preparing meals, shopping, managing finances, etc.?: No Are you currently unemployed and looking for a job?: No Are you interested in more education?: No Please select the resources that you would like help with: None Currently or been in a relationship where the following occur: No concerns reported THRIVE Score: 0 AUDIT C Alcohol Use Questionnaire (AUDIT-C) 1. How often do you have a drink containing alcohol?: Never 3. How often do you have six or more drinks on one occasion?: Never Total Score: 0 Score Reviewed/Action Taken: Yes FADUMO-7 AMB Questionnaire FADUMO-7 Date FADUMO - 7 assessed: 09/27/24 Feeling nervous, anxious, or on edge: 0 = Not at all Not being able to stop or control worryin = Not at all Worrying too much about different things: 0 = Not at all Trouble relaxin = Not at all Being so restless that it is hard to sit still: 0 = Not at all Becoming easily annoyed or irritable: 0 = Not at all Feeling afraid as if something awful might happen: 0 = Not at all Total FADUMO-7 score (0-4 normal; 5-9 mild; 10-14 moderate; 15-21 severe): 0 Source: Developed by Drs. Raymond Plunkett, Meaghan Art, Keshav Castro and colleagues, with an educational david from [employer]. Review of Systems Const Denies chills, Reports fatigue, Denies fever(s) and Denies headache(s) ENT Denies dysphagia, Denies dizziness, Denies otalgia, Denies headache(s), Denies neck pain, Denies odynophagia and Denies sore throat Card Denies chest pain, Denies irregular heart rhythm, Denies palpitations and Reports dyspnea on exertion (mild) Resp Denies chest congestion, Denies cough, Reports dyspnea on exertion (mild) and Denies wheezing GI Denies abdominal pain, Denies dysphagia, Denies heartburn, Denies diarrhea, Denies nausea, Denies odynophagia and Denies vomiting Denies hematuria, Denies difficulty voiding, Reports nocturia, Denies dysuria, Reports urinary incontinence and Denies urinary urgency Musc Reports back pain (over the lower back - chronic), Reports arthralgias (on and off; increased over both ankles recently) and Denies neck pain Skin/Breast Denies rash Neuro Denies dizziness and Denies headache(s) Endo Reports fatigue and Denies palpitations Aller/Immun Denies wheezing Physical exam (Primary Care) Vital Signs: Last Vital Signs Pulse 61 09/27/24 10:42 BP 126/80 09/27/24 10:42 Pulse Ox 99 09/27/24 10:42 Oxygen Delivery Method Room Air 09/27/24 10:42 BMI result Body Mass Index 38.0 Tobacco/Smoking Status: Tobacco use Status Tobacco use date assessed 09/27/24 09/27/24 10:48 Patient Tobacco Use Status Never used Tobacco 09/27/24 10:42 e-Cigarette/Vaping Use Never Used 09/27/24 10:42 PHQ-9: PHQ-9 Score PHQ-9: Total score 0 09/27/24 11:13 Depression Screening Interpretation: Negative (is on Rx) Thrive Assessment: Date of Thrive Assessment Date Thrive assessed 09/27/24 09/27/24 10:48 Currently or been in a relationship where the following occur: No concerns reported Const General: no acute distress and alert HENMT Ears: TM's normal bilaterally and EAC's normal Throat: Yes posterior oropharynx normal and Yes tonsils normal (no TP congestion noted) Neck Neck: Yes supple and No lymphadenopathy Thyroid: Thyroid normal Resp Auscultation: clear to auscultation bilaterally, no rales and no wheezes Cardio Rate: regular rate Rhythm: regular rhythm Heart sounds: no murmurs GI Palpation (GI): Soft to palpation and nontender Auscultation: normal bowel sounds General: Yes no CVA tenderness Back/Spine/Pelvis Back: no CVA tenderness Thoracic/Lumbar Spine: thoracic spinal tenderness and lumbar spinal tenderness Skin Rashes: no rashes Extrem General: Yes no clubbing, cyanosis or edema Right upper extremity: wrist Details: tenderness; no swelling Left upper extremity: wrist ((+) tenderness, especially over the dorsal aspect ) Right lower extremity: ankle Details: tenderness; no swelling Left lower extremity: knee Details: tenderness Location: of the pre-patellar area and of the infrapatellar area; no swelling and ankle Details: tenderness; n o swelling Results Reviewed Results Reviewed: Laboratory Tests 09/22/24 09/22/24 10:29 10:42 WBC 7.8 Hgb 12.4 Hct 40.8 Plt Count 260 Sodium 141 Potassium 4.1 Creatinine 0.67 Estimated GFR > 60 Fasting Glucose 127 H Hemoglobin A1c % 7.0 H Calcium 9.9 AST 24 ALT 16 Triglycerides 214 H Cholesterol 151 LDL Cholesterol, Calc 56 HDL Cholesterol 53 Ur Specific [place] <= 1.005 Urine Protein Negative Urine Glucose (UA) Negative Urine Blood Negative Urine Nitrite Negative Ur Leukocyte Esterase Negative Coding Level of Care Code Est Pt Level 4 (67024) Complex EM visit Add On G2211 Diagnoses Pure hypercholesterolemia E78.00 Type 2 diabetes mellitus without complication, without long-term current use of insulin E11.9 Diabetes mellitus type: type 2 Diabetes mellitus 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 insulin use: without 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 use Diabetes mellitus complication status: without complication Benign essential hypertension I10 Migraine without status migrainosus, not intractable, unspecified migraine type G43.909 Migraine type: unspecified Status migrainosus presence: without status migrainosus Intractability: not intractable Moderate persistent asthma without complication J45.40 Asthma severity: moderate Asthma persistence: persistent Asthma complication type: uncomplicated Allergic rhinitis, unspecified seasonality, unspecified trigger J30.9 Allergic rhinitis trigger: unspecified Allergic rhinitis seasonality: unspecified Obstructive sleep apnea G47.33 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 myelopathy or radiculopathy M47.816 Chronic idiopathic constipation K59.04 Gastroesophageal reflux disease without esophagitis K21.9 Esophagitis presence: without esophagitis Biliary dyskinesia K82.8 Elevated LFTs R79.89 Vitamin D deficiency E55.9 Elevated vitamin B12 level R74.8 Overactive bladder N32.81 Bilateral ankle pain, unspecified chronicity M25.571; M25.572 Chronicity: unspecified Insomnia, unspecified type G47.00 Insomnia type: unspecified Anxiety F41.9 Episode of recurrent major depressive disorder, unspecified depression episode severity F33.9 Depression Type: major depressive disorder Major depression recurrence: recurrent Active/Remission status: currently active Major depression episode severity: unspecified Obesity (BMI 30-39.9) E66.9 Additional Codes PHQ-9 - 59545 - PHQ-9 Billing: Yes ([id number]) Assessment & Plan Assessment & Plan (1) Pure hypercholesterolemia: Code(s): E78.00 - Pure hypercholesterolemia, unspecified Category: Medical Plan: Results of her labs done a few days ago reviewed and discussed with patient She underwent coronary angiography back on 06/11/2022 after her cardiac stress testing came back abnormal - myocardial perfusion study revealed (+) distal lateral, apical and inferoapical ischemia Cardiac catheterization revealed completely normal coronaries with no atherosclerotic lesions Reinforced low cholesterol diet Continue Atorvastatin 20 mg QD Will recheck her labs and fasting lipids in 4 months for follow-up (2) Diabetes mellitus: Comment: taking Victoza, Metformin & Actos Code(s): E11.9 - Type 2 diabetes mellitus without complications Category: Medical Qualifiers: Diabetes mellitus type: type 2 Diabetes mellitus senior care insulin use: without senior care use Diabetes mellitus complication status: without comp lication Qualified Code(s): E11.9 - Type 2 diabetes mellitus without complications Plan: Her HgbA1c was at 7.0% on her labs done a few days ago (was previously at 7.3% a few months ago) - goal is HgbA1c of < 7.0% Reinforced diabetic diet Continue Victoza 18 mg/ 3 mL 0.2 mL (1.2 mg) QD, Pioglitazone 45 mg QD and Metformin 1000 mg BID (3) Benign essential hypertension: Code(s): I10 - Essential (primary) hypertension Category: Medical Plan: Reinforced low sodium diet - goal is systolic BP of at least 120 to 130 mm or less Patient is reminded to continue monitoring her blood pressure regularly - patient has not needed any Rx for her BP for the past couple of years although she is on Propranolol 80 mg BID for prophylactic Tx of her migraine headaches (4) Migraine: Code(s): G43.909 - Migraine, unspecified, not intractable, without status migrainosus Category: Medical Qualifiers: Migraine type: unspecified Status migrainosus presence: without status migrainosus Intractability: not intractable Qualified Code(s): G43.909 - Migraine, unspecified, not intractable, without status migrainosus Plan: Continue Topiramate 100 mg BID, Propranolol 80 mg BID and Fioricet 50-325 mg 1 tablet every 4-6 hours as needed Continue Ubrelvy 100 mg PRN and Aimovig 140 mg SQ every 6 months Patient also used to receive Botox injection every 3 months from Neurology but states that she is no longer getting the injections at present Follow-up with Neurology (Dr. Lieberman) every 3 months as scheduled (5) Asthma: Comment: SHE CONTINUES TO COMPLAIN OF MINIMAL SHORTNESS OF BREATH ON WALKING, BUT NO WHEEZING. PULMONARY FUNCTION TEST IN 2022 WAS ESSENTIALLY NORMAL. SHE MAY STILL HAVE MILD INTERMITTENT BRONCHIAL ASTHMA. I THINK SHORTNESS OF BREATH ON EXERTION IS RELATED TO HER MORBID OBESITY. Code(s): J45.909 - Unspecified asthma, uncomplicated Category: Medical Qualifiers: Asthma severity: moderate Asthma persistence: persistent Asthma complication type: uncomplicated Qualified Code(s): J45.40 - Moderate persistent asthma, uncomplicated Plan: Controlled Continue QVAR RediHaler 80 mcg 1 puff twice a day and ProAir HFA 2 puffs 4 times a day as needed (6) Allergic rhinitis: Comment: SYMPTOMS OF CHRONIC ALLERGIC RHINITIS SEEM TO BE UNDER CONTROL . Code(s): J30.9 - Allergic rhinitis, unspecified Category: Medical Qualifiers: Allergic rhinitis trigger: unspecified Allergic rhinitis seasonality: unspecified Qualified Code(s): J30.9 - Allergic rhinitis, unspecified Plan: Continue Montelukast 10 mg QD and Rhinocort Aqua 2 sprays to each nostril QD PRN She was on Nasacort nasal spray 1 spray to each nostril QD in the past but she stopped using it a while back as the nasal spray reportedly irritates her sinuses (7) Obstructive sleep apnea: Comment: THIS PATIENT IS KNOWN TO HAVE OBSTRUCTIVE SLEEP APNEA SINCE 2019 HAS BEEN USING CPAP REGULARLY. SHE IS BEING FOLLOWED BY AND MANAGED FOR SLEEP APNEA BY HER NEUROLOGIST. CLAIMS THAT SHE DOES USE THE CPAP EVERY NIGHT, AND SLEEPS WELL. Code(s): G47.33 - Obstructive sleep apnea (adult) (pediatric) Category: Medical Plan: Continue using her CPAP device every night when sleeping Follow up with Sleep Medicine as scheduled (8) 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 myelopathy or radiculopathy: Code(s): M47.816 - Spondylosis without myelopathy or radiculopathy, lumbar region Category: Medical Plan: Reinforced activity and weight-lifting restrictions Repeat lumbar spine x-rays done a couple of years ago showed (+) degenerative changes at L5-S1 and lower lumbar facet arthritis Lumbar spine MRI done on 09/14/2021 revealed a severe disc height loss with mild subchondral endplate edema at L5-S1. The bulging this flattens the ventral thecal sac with encroachment on the subarticular zones and abutment of both exiting L5 nerve roots Continue Tramadol 50 mg TID PRN and Gabapentin 300 mg Q HS Follow up with pain management as scheduled - gets back injections when needed with (+) relief (9) Chronic idiopathic constipation: Code(s): K59.04 - Chronic idiopathic constipation Category: Medical Plan: Reinforced increased oral fluids and dietary fiber Continue Linzess 290 mcg QD, MOM 5 ml Q HS and Fiber Laxative daily Follow up with GI as scheduled for continuing management of her chronic constipation (10) GERD (gastroesophageal reflux disease): Code(s): K21.9 - Gastro-esophageal reflux disease without esophagitis Category: Medical Qualifiers: Esophagitis presence: without esophagitis Qualified Code(s): K21.9 - Gastro-esophageal reflux disease without esophagitis Plan: Dietary restrictions reinforced Continue Esomeprazole 40 mg QD (11) Biliary dyskinesia: Code(s): K82.8 - Other specified diseases of gallbladder Category: Medical Plan: HIDA scan with CCK done in November 2020 revealed poor gallbladder emptying and low gallbladder ejection fraction consistent with impaired gallbladder contractility and suggests chronic cholecystitis She was referred to and seen by surgery a couple of years ago and advised that her symptoms are more suggestive of GERD and recommended no surgery at the time but patient was advised to call if her symptoms get worse (12) Elevated LFTs: Code(s): R79.89 - Other specified abnormal findings of blood chemistry Category: Medical Plan: Improved - was most likely related to her weight (hepatosteatosis) Her LFTs on her recent labs remained normal Will continue to monitor her LFTs regularly (13) Vitamin D deficiency: Code(s): E55.9 - Vitamin D deficiency, unspecified Category: Medical Plan: Continue Vitamin D3 2000 units QD (14) Elevated vitamin B12 level: Code(s): R74.8 - Abnormal levels of other serum enzymes Category: Medical Plan: Corrected Patient was advised last year that her Vitamin B12 level has been elevated significantly for a while now and she was referred to hematology for further evaluation Her work ups were all essentially normal, including flow cytometry She was advised that this was likely caused by enhanced production of haptoglo bin related to her liver disease Her B12 level has since normalized and her most recent B12 level last checked a few months ago remained normal Will continue to monitor her B12 level regularly (15) Overactive bladder: Code(s): N32.81 - Overactive bladder Category: Medical Plan: Follow up with urology as scheduled She uses Adult pull ups to help manage her OAB (16) Bilateral ankle pain: Code(s): M25.571 - Pain in right ankle and joints of right foot; M25.572 - Pain in left ankle and joints of left foot Category: Medical Qualifiers: Chronicity: unspecified Qualified Code(s): M25.571 - Pain in right ankle and joints of right foot; M25.572 - Pain in left ankle and joints of left foot Plan: Will send patient for x-rays of both ankles for further evaluation She has been referred to physical therapy for her ankle pain and is scheduled to start PT tomorrow (17) Insomnia: Code(s): G47.00 - Insomnia, unspecified Category: Medical Qualifiers: Insomnia type: unspecified Qualified Code(s): G47.00 - Insomnia, unspecified Plan: Sleep hygiene reinforced Continue Zolpidem 10 mg Q HS PRN (18) Anxiety: Code(s): F41.9 - Anxiety disorder, unspecified Category: Medical Plan: Continue Clonazepam 1 mg TID PRN (19) Depression: Code(s): F32.9 - Major depressive disorder, single episode, unspecified Category: Medical Qualifiers: Depression Type: major depressive disorder Major depression recurrence: recurrent Active/Remission status: currently active Major depression episode severity: unspecified Qualified Code(s): F33.9 - Major depressive disorder, recurrent, unspecified Plan: Continue Geodon 80 mg BID, Sertraline 100 mg once a day and Amitriptyline 75 mg once a day at bedtime Follow-up with Psychiatry as scheduled (20) Obesity (BMI 30-39.9): Code(s): E66.9 - Obesity, unspecified Category: Medical Plan: Reinforced diet/exercise as tolerated /lose weight Plan Follow up in 4 months Orders: Orders Complete Blood Count Auto Diff 4 Months D64.9 - Anemia, unspecified Lipid Panel 4 Months E78.00 - Pure hypercholesterolemia, unspecified UA CC w/rflx Micro + Cult 4 Months R30.0 - Dysuria Vitamin D 25-OH Total 4 Months E55.9 - Vitamin D deficiency, unspecified Microalbumin, Random (w Creat) 4 Months E11.9 - Type 2 diabetes mellitus without complications Hemoglobin A1c 4 Months E11.9 - Type 2 diabetes mellitus without complications Vitamin B12 and Folate 4 Months E53.8 - Deficiency of other specified B group vitamins XR ankle LT min 3V Today M25.571 - Pain in right ankle and joints of right foot, M25.572 - Pain in left ankle and joints of left foot XR ankle RT min 3V Today M25.571 - Pain in right ankle and joints of right foot, M25.572 - Pain in left ankle and joints of left foot Comprehensive [place]. Panel Fast 4 Months E78.00 - Pure hypercholesterolemia, unspecified TSH reflex Free T4 4 Months E78.00 - Pure hypercholesterolemia, unspecified Medications: New ubrogepant (Ubrelvy) 100 mg PO DAILY PRN 30 tabs 0RF Migraine Headache erenumab-aooe (Aimovig Autoinjector) 140 mg subcut [id number] 1 mL 0RF Refilled liraglutide (Victoza 3-Shamir) 1.2 mg (0.2 mL) subcut DAILY 9 mL 6RF lancets (FreeStyle Lancets) As directed- 3 times a day 100 ea 12RF E11.9 - Type 2 diabetes mellitus without complications
--- OUTSIDE RECORDS SUMMARY | 2024-09-27 12:01 | XMS_ITS | Clinical Summary ---
Author Organization [employer] Address [address] [facility] [place] [address] Care Team Providers Care Nutrient Management Specialist Name Role Phone Unavailable Primary Care Provider [...]
--- OUTSIDE RECORDS SUMMARY | 2024-09-27 12:01 | XMS_ITS | Encounter Summary ---
Author Organization [facility], Address [address] [place] [address] Phone Care Team Providers Care Bench Manager Name Role Phone Villa Lr MD Primary Care Provider +1- [phone] Encounter Details Date Type Department Care Team (Late st Contact Info) Description 06/16/2023 Documentation Only [facility], [address] [place] [address] Abdulkadir Osroio MD [address] [place] [address] [place] [address] Social History Tobacco Use Types [...] Visit [facility], [address] [place] [address] Abdulkadir Osorio MD [address] [place] [address] documented as of this encounter Visit Diagnoses Not on filedocumented in this encounter Care Teams Bench Manager Relationship Specialty Start Date End Date Villa Lr MD [address] [place] [address] PCP - General 05/04/19 documented as of this encounter
--- OUTSIDE RECORDS SUMMARY | 2024-09-27 12:01 | XMS_ITS | Encounter Summary ---
Author Organization [facility] Address [address] [place] [address] Care Team Providers Care Logging Tractor Operator Name Role Phone Unavailable Primary Care Provider Unavailabl e Encounter Details Date Type Department Care Team (Latest Contact Info) Description 03/18/2019 Abstract [facility] CONVERSIONS Dental, Provider, DDS Social History [...]
--- OUTSIDE RECORDS SUMMARY | 2024-09-27 12:01 | XMS_ITS | Encounter Summary ---
Author Organization [facility], Address [address] [place] [address] Phone Care Team Providers Care Car Pusher Name Role Phone Villa Lr MD Primary Care Provider +1- [phone] Encounter Details Date Type Department Care Team (Late st Contact Info) Description 06/10/2022 Documentation Only [facility], [address] [place] [address] Abdulkadir Osorio MD [address] [place] [address] [place] [address] Social History Tobacco Use Types [...] Visit [facility], [address] [place] [address] Abdulkadir Osorio MD [address] [place] [address] documented as of this encounter Visit Diagnoses Not on filedocumented in this encounter Care Teams Car Pusher Relationship Specialty Start Date End Date Villa Lr MD [address] [place] [address] PCP - General 05/04/19 documented as of this encounter
--- OUTSIDE RECORDS SUMMARY | 2024-09-27 12:01 | XMS_ITS | Encounter Summary ---
Author Organization [facility] Address [address] [place] [address] Care Team Providers Care Fishing Line Winding Machine Operator Name Role Phone Unavailable Primary Care Provider Unavailabl e Encounter Details Date Type Department Care Team (Latest Contact Info) Description 05/17/2021 Abstract [facility] CONVERSIONS Dental, Provider, DDS Social History [...]
--- OUTSIDE RECORDS SUMMARY | 2024-09-27 12:01 | XMS_ITS | Data Portability ---
Author Organization Formerly [facility] [employer] [facility] Address [address] [address] Care Team Providers Care Winch Stripper Name Role Phone LATIA RASHID Referring Provider [...] today, I reviewed the propranolol prescription in [place] and noted that she had a 90-day [...] with April 2023 confirmation of medications from [facility]) -From [facility]: propranolol 60 mg twice daily topiramate 100 mg twice daily, Aimovig 140 mg/mL monthly autoinjector and Ubrelvy 100 mg as needed for breakthrough migraine from [facility] (she was also concurrently on rizatriptan [...] with April 2023 confirmation of medications from [facility]) -From [facility]: propranolol 60 mg twice daily topiramate 100 mg twice daily, Aimovig 140 mg/mL monthly autoinjector and Ubrelvy 100 mg as needed for breakthrough migraine from [facility] (she was also concurrently on rizatriptan [...] la versi? ? ?n gratuita del traductor Cerevo.AFTER-MOUSE (with edits by me) -Continue propranolol 60mg [...] with April 2023 confirmation of medications from [facility]) -From [facility]: propranolol 60 mg twice daily topiramate 100 mg twice daily, Aimovig 140 mg/mL monthly autoinjector and Ubrelvy 100 mg as needed for breakthrough migraine from [facility] (she was also concurrently on rizatriptan [...] currently on methocarbamol or metoclopramide. PLAN Ute Ashlny November 11, 2023 FOR MIGRAINE PREVENTION CONTINUE [...] extra dose in her refrigerator and to potato picker the new prescription when it gets. [...] with April 2023 confirmation of medications from [facility]) -From [facility]: propranolol 60 mg twice daily topiramate 100 mg twice daily, Aimovig 140 mg/mL monthly autoinjector and Ubrelvy 100 mg as needed for breakthrough migraine from [facility] (she was also concurrently on rizatriptan [...] extra dose in her refrigerator and to potato picker the new prescription when it gets. [...] with April 2023 confirmation of medications from [facility]) -From [facility]: propranolol 60 mg twice daily topiramate 100 mg twice daily, Aimovig 140 mg/mL monthly autoinjector and Ubrelvy 100 mg as needed for breakthrough migraine from [facility] (she was also concurrently on rizatriptan [...] mL subcutane ous auto-inje ctor 2023 024 [facility] [address] [place], [address], 03/23/2024 12:47:06 Ubrelvy 100 mg tablet 2023 024 [facility], [address] [place], [address], 03/23/2024 12:47:07 Ajovy 225 mg/1.5 mL subcutane ous auto-inje ctor 2023 024 [facility] [address] [place], [address], 12/10/2023 12:17:38 propranol ol 60 mg tablet 2023 024 [facility], [address] [place], [address], 11/11/2023 11:21:02 topiramat e 50 mg tablet 2023 024 [facility], [address] [place], [address], 11/11/2023 11:21:03 Aimovig Autoinjec tor 140 mg/mL subcutane ous auto-inje ctor 2023 024 [facility] [address] [place], [address], 03/23/2024 12:59:57 Ubrelvy 100 mg tablet 2023 024 [facility], [address] [place], [address], 11/11/2023 11:21:02 topiramat e 100 mg tablet 2023 024 [facility], [address] [place], [address], 10/07/2023 10:22:21 propranol ol 60 mg tablet 2023 024 [facility], [address] [place], [address], 10/07/2023 10:22:21 Aimovig Autoinjec tor 140 mg/mL subcutane ous auto-inje ctor 2023 024 [facility] [address] [place], [address], 03/23/2024 12:59:57 Ubrelvy 100 mg tablet 2023 024 [facility], [address] [place], [address], 10/07/2023 10:22:21 topiramat e 100 mg tablet 2022 023 [facility], [address] [place], [address], 05/28/2023 09:56:01 propranol ol 60 mg tablet 2022 023 [facility], [address] [place], [address], 05/28/2023 09:56:01 Aimovig Autoinjec tor 140 mg/mL subcutane ous auto-inje ctor 2022 023 [facility] [address] [place], [address], 03/23/2024 12:59:57 Ubrelvy 100 mg tablet 2022 023 [facility][id number], [address] [facility], [place], [address], 05/28/2023 09:56:01 Patient TargetsNo targets recorded. 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 She will potato picker a sample today. 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 She will potato picker a sample today. 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 She will potato picker a sample today. 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 She will potato picker a sample today. 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 She was running out of UbrelBlendagram for breakthrough migraine reported October 01, 2022. [...] not discuss the addition of rizatriptan through [employer] which we have discussed previously as she [...] over the potential side effects. She will potato picker a sample today. 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 Procedures Surgical History Date Name Laterality Status Provider Name and Address Organization Details Recorded Time 4 botulinum injection completed Imer Lieberman MD [address] [place], [place] [address], [address], [facility] 03/23/2024 12:37:46 4 botulinum injection completed Imer Lieberman MD [address] [place], [place] [address], [address], [facility] 12/10/2023 11:56:10 4 botulinum injection completed Imer Lieberman MD [address] [place], [place] [address], [address], [facility] 11/11/2023 11:10:22 4 botulinum injection completed ENRIKE NORTON PA-C [address] [place], [place] [address], [address], [facility] 10/07/2023 10:03:49 3 botulinum injection completed ENRIKE NORTON PA-C [address] [place], [place] [address], [address], [facility] 05/28/2023 09:39:33 3 botulinum injection completed ENRIKE NORTON PA-C [address] [place], [place] [address], [address], [facility] 04/24/2023 10:42:13 3 botulinum injection completed ENRIKE NORTON PA-C [address] [place], [place] [address], [address], [facility] 03/18/2023 10:47:21 3 botulinum injection completed ENRIKE NORTON PA-C [address] [place], [place] [address], [address], [facility] 01/23/2023 09:59:39 3 botulinum injection completed ENRIKE NORTON PA-C [address] [place] [address] B, YAKOV [place]ter[place], [address], [facility] 12/19/2022 11:33:40 3 botulinum injection completed ENRIKE NORTON PA-C [address] [place] [address] B, YAKOV [place]tero, [address], [facility] 11/28/2022 13:56:45 3 botulinum injection completed ENRIKE NORTON PA-C [address] [place] [address] B, YAKOV [place]ter[place], [address], [facility] 10/29/2022 10:47:52 3 botulinum injection completed ENRIKE NORTON PA-C [address] [place] [address] B, YAKOV Montero, [address], [facility] 10/01/2022 13:50:41 3 botulinum injection completed Imer Lieberman MD [address] [place] [address] B, YAKOV Montero, [address], [facility] 08/14/2022 17:00:39 3 botulinum injection completed ENRIKE NORTON PA-C [address] [place] [address] B, YAKOV Montero, [address], [facility] 07/09/2022 14:05:58 2 botulinum injection completed Imer Lieberman MD [address] [place] [address] B, YAKOV Montero, [address], [facility] 05/16/2022 13:33:52 2 botulinum injection completed ENRIKE NORTON PA-C [address] [place] [address] B, YAKOV Montero, [address], [facility] 03/14/2022 14:10:23 2 botulinum injection completed Imer Lieberman MD [address] [place] [address] B, YAKOV Montero, [address], [facility] 02/13/2022 09:15:23 2 botulinum injection completed ENRIKE NORTON PA-C [address] [place] [address], YAKOV Montero, [address], [facility] 12/06/2021 13:50:32 2 botulinum injection completed Imer Lieberman MD [address] [place] [address] B, YAKOV Montero, [address], [facility] 11/07/2021 13:30:06 2 botulinum injection completed ENRIKE NORTON PA-C [address] [place] [address] B, YAKOV Montero, [address], [facility] 09/05/2021 14:12:15 2 botulinum injection completed Imer Lieberman MD [address] [place] [address], YAKOV Montero, [address], [facility] 07/25/2021 15:27:34 2 botulinum injection completed ENRIKE NORTON PA-C [address] [place] [address], YAKOV Montero, [address], [facility] 07/12/2021 08:55:03 1 botulinum injection completed ENRIKE NORTON PA-C [address] [place] [address] B, YAKOV Montero, [address], [facility] 05/29/2021 22:54:52 1 botulinum injection completed Imer Lieberman MD [address] [place] [address], YAKOV Montero, [address], [facility] 04/25/2021 14:30:46 1 botulinum injection completed Imer Lieberman MD [address] [place] [address], YAKOV Montero, [address], [facility] 01/24/2021 19:05:02 1 botulinum injection completed Imer Lieberman MD [address] [place] [address] B, YAKOV Montero, [address], [facility] 10/25/2020 18:09:08 Imaging Results None [...] Code Diagnosis Note [id number] Imer Lieberman MD [facility] [address] [place] [address] JOSE [place]TERO YAKOV [address] 4 10/25/2020 14:51:37 10/30/2020 14:49:52 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 Dystonia 05804586 G24.3 Facial spasm 13312001 G5 1.39 Migraine without aura 56 610171 G43.009 [id number] Imer Lieberman MD [facility] [address] [place] [address] JOSE RETANAYAKOV RICHARD [id number] 4 01/24/2021 14:50:22 01/25/2021 08:16:40 Idiopathic non-familial dystonia 274530654 G24.1 Dystonia 94424163 G24.3 Facial spasm 10079248 G5 1.39 Migraine without aura 56 707872 G43.009 [id number] Imer Lieberman MD [facility] [address] [place] [address] JOSE RETANAYAKOV RICHARD [address]-175 4 02/28/2021 11:51:24 02/28/2021 12:29:37 Idiopathic non-familial dystonia 007386268 G24.1 Dystonia 59087268 G24.3 Facial spasm 30175340 G5 1.39 Migraine without aura 56 392824 G43.009 [id number] Imer Lieberman MD [facility] [address] [place] [address] JOSE RETANAYAKOV RICHARD [address]-401 4 04/25/2021 12:22:14 04/26/2021 07:40:15 Idiopathic non-familial dystonia 546617873 G24.1 Dystonia 12249155 G24.3 Facial spasm 96692375 G5 1.39 Migraine without aura 56 478634 G43.009 [id number] Imer Lieberman MD [facility] [address] [place] [address] JOSE RETANAYAKOV RICHARD [address]-056 4 05/29/2021 10:02:07 05/30/2021 15:05:44 Idiopathic non-familial dystonia 029822881 G24.1 Dystonia 53879505 G24.3 Facial spasm 46509607 G5 1.39 Migraine without aura 56 000124 G43.009 Migraine with aura 76010 06 G43.109 [id number] Imer Lieberman MD [facility] [address] [place] [address] Gordo MONTERO YAKOV [address] 4 07/12/2021 08:51:06 08/03/2021 15:14:49 Idiopathic non-familial dystonia 992227345 G24.1 Dystonia 84627155 G24.3 Facial spasm 11238594 G5 1.39 Migraine without aura 56 512766 G43.009 [id number] Imer Lieberman MD [facility] [address] [place] [address] Gordo MONTERO YAKOV 90770-496 4 07/25/2021 13:52:53 07/25/2021 16:35:44 Idiopathic non-familial dystonia 286817892 G24.1 Dystonia 83988012 G24.3 Facial spasm 08193503 G5 1.39 Migraine without aura 56 479790 G43.009 [id number] Imer Lieberman MD [facility] [address] [place] [address] Gordo MONTEROYAKOV 83396-361 4 09/05/2021 14:01:17 09/10/2021 10:57:43 Idiopathic non-familial dystonia 518791480 G24.1 Dystonia 40717535 G24.3 Facial spasm 27080592 G5 1.39 Migraine without aura 56 088999 G43.009 [id number] Imer Lieberman MD [facility] [address] [place] [address] JOSE RETANAYAKOV RICHARD 28298-109 4 11/07/2021 12:25:50 11/07/2021 18:58:37 Idiopathic non-familial dystonia 227651662 G24.1 Dystonia 67206841 G24.3 Facial spasm 20953639 G5 1.39 Migraine without aura 56 604418 G43.009 [id number] Imer Lieberman MD [facility] [address] [place] [address] Gordo RETANAWINSTONYAKOV RICHARD [address]5212-333 4 12/06/2021 13:06:48 12/10/2021 15:27:19 Idiopathic non-familial dystonia 416091360 G24.1 Dystonia 57036046 G24.3 Facial spasm 51812311 G5 1.39 Migraine without aura 56 617948 G43.009 [id number] Imer Lieberman MD [facility] [address] [place] [address] Gordo YAKOV MONTERO 96[address]-055 4 02/13/2022 07:56:35 02/13/2022 09:24:50 Idiopathic non-familial dystonia 916960714 G24.1 Dystonia 65319273 G24.3 Facial spasm 47634425 G5 1.39 Migraine without aura 56 535689 G43.009 [id number] Imer Lieberman MD [facility] [address] [place] [address] Gordo YAKOV MONTERO 47199-270 4 03/14/2022 13:58:56 03/19/2022 09:35:39 Idiopathic non-familial dystonia 512587310 G24.1 Dystonia 91763797 G24.3 Facial spasm 95766435 G5 1.39 Migraine without aura 56 828200 G43.009 7012 Imer Lieberman MD [facility] [address] [place] [address] Gordo YAKOV MONTERO [id number] 4 05/16/2022 11:40:07 05/16/2022 15:55:55 Idiopathic non-familial dystonia 032371166 G24.1 Dystonia 91223251 G24.3 Facial spasm 43922920 G5 1.39 Migraine without aura 56 735411 G43.009 [id number] Imer Lieberman MD [facility] [address] [place] [address] Gordo YAKOV MONTERO [id number] 4 07/09/2022 13:59:24 07/25/2022 12:39:21 Idiopathic non-familial dystonia 247886777 G24.1 Dystonia 37178018 G24.3 Facial spasm 95983280 G5 1.39 Migraine without aura 56 973794 G43.009 Migraine with aura 49336 06 G43.109 [id number] Imer Lieberman MD [facility] [address] [place] [address] Gordo YAKOV MONTERO 83408-266 4 08/14/2022 15:04:31 08/14/2022 17:43:36 Idiopathic non-familial dystonia 458379986 G24.1 Dystonia 02895767 G24.3 Facial spasm 35680775 G5 1.39 Migraine without aura 56 565038 G43.009 [id number] ENRIKE NORTON PA-C [facility] [address] [place] [address] B AYKOV MONTERO [id number] 4 10/01/2022 13:45:47 10/03/2022 11:40:32 Idiopathic non-familial dystonia 817983031 G24.1 Dystonia 78815188 G24.3 Facial spasm 47304063 G5 1.39 Migraine without aura 56 480809 G43.009 Migraine with aura 00913 06 G43.109 [id number] Imer Lieberman MD [facility] [address] [place] [address] JOSE RETANAHILARY YAKOV 80871-971 4 10/29/2022 10:18:41 11/04/2022 15:06:43 Idiopathic non-familial dystonia 047833404 G24.1 Dystonia 96597492 G24.3 Facial spasm 02798205 G5 1.39 Migraine without aura 56 581763 G43.009 Migraine with aura 28209 06 G43.109 [id number] ENRIKE NORTON PA-C [facility] [address] [place] [address] JOSE RETANAYAKOV RICHARD [id number] 4 11/28/2022 13:27:59 12/02/2022 15:28:22 Idiopathic non-familial dystonia 011251427 G24.1 Dystonia 00155168 G24.3 Facial spasm 10430585 G5 1.39 Migraine without aura 56 529034 G43.009 Migraine with aura 83348 06 G43.109 [id number] Imer Lieberman MD [facility] [address] [place] [address] JOSE MONTERO YAKOV 17553-181 4 12/19/2022 11:07:15 12/23/2022 16:34:25 Idiopathic non-familial dystonia 229549512 G24.1 Dystonia 73800382 G24.3 Facial spasm 93688263 G5 1.39 Migraine without aura 56 093393 G43.009 Migraine with aura 21257 06 G43.109 [id number] Imer Lieberman MD [facility] [address] [place] [address] JOSE Gordo RETANAWINSTONYAKOV RICHARD 21560-718 4 01/23/2023 09:21:21 02/10/2023 16:21:14 Idiopathic non-familial dystonia 857810762 G24.1 Dystonia 90523440 G24.3 Facial spasm 90359099 G5 1.39 Migraine without aura 56 823224 G43.009 Migraine with aura 41314 06 G43.109 [id number] Imer Lieberman MD [facility] [address] [place] [address] Gordo MONTERO YAKOV 67525-176 4 03/18/2023 10:30:58 03/19/2023 17:32:28 Idiopathic non-familial dystonia 675377949 G24.1 Dystonia 03927609 G24.3 Facial spasm 63957193 G5 1.39 Migraine without aura 56 946523 G43.009 Migraine with aura 08691 06 G43.109 [id number] ENRIKE NORTON PA-C [facility] [address] [place] [address] Gordo MONTERO YAKOV 11056-031 4 04/24/2023 10:15:35 04/30/2023 10:38:58 Idiopathic non-familial dystonia 287642436 G24.1 Dystonia 04258618 G24.3 Facial spasm 05343439 G5 1.39 Migraine without aura 56 762657 G43.009 Migraine with aura 66758 06 G43.109 [id number] Imer Lieberman MD [facility] [address] [place] [address] Gordo RETANAWINSTNO, YAKOV 98848-103 4 05/28/2023 09:14:15 05/29/2023 16:35:04 Idiopathic non-familial dystonia 422651055 G24.1 Dystonia 18194208 G24.3 Facial spasm 69933549 G5 1.39 Migraine without aura 56 343006 G43.009 Migraine with aura 22658 06 G43.109 [id number] Imer Lieberman MD [facility] [address] [place] [address] Gordo RETANAWINSTONYAKOV RICHARD [id number] 4 10/07/2023 09:31:55 10/13/2023 13:14:20 Idiopathic non-familial dystonia 453142805 G24.1 Dystonia 65700943 G24.3 Facial spasm 30033274 G5 1.39 Migraine without aura 56 459411 G43.009 Migraine with aura 90820 06 G43.109 [id number] Imer Lieberman MD [facility] [address] [place] [address] Gordo RETANAWINSTON, YAKOV 27727-504 4 11/11/2023 10:36:51 11/11/2023 11:43:45 Idiopathic non-familial dystonia 084004781 G24.1 Dystonia 83635899 G24.3 Facial spasm 50362119 G5 1.39 Migraine without aura 56 164919 G43.009 Migraine with aura 85755 06 G43.109 [id number] Imer Lieberman MD [facility] [address] [place] [address] [place] [address] 4 12/10/2023 11:11:30 12/10/2023 12:19:37 Idiopathic non-familial dystonia 560145372 G24.1 Dystonia 79711353 G24.3 Facial spasm 95245332 G5 1.39 Migraine without aura 56 772830 G43.009 Migraine with aura 69071 06 G43.109 [id number] Imer Lieberman MD [facility] [address] [place] [address] [place] [address] 4 03/23/2024 11:39:14 03/23/2024 17:16:47 Idiopathic non-familial dystonia 481667953 G24.1 Dystonia 01576879 G24.3 Facial spasm 01932764 G5 1.39 Migraine without aura 56 944267 G43.009 Migraine with aura 61723 06 G43.109 Health Concerns Section Related Observation LastModified by Organization Detai ls LastModified Time None Recorded Concern Status LastModified by Organization Details LastModified Time None Recorded Advance Directives Directive None Recorded Payers Encounter Date Sequence Insurance Name Policy Number Policy Leone Covered Member ID Leone Member ID Guarantor Name 05/28/2023 1 [facility] [employer] Ute Ashlyn [id number] Ute Ashlyn 10/07/2023 1 [facility] [employer] Ute Ashlyn [id number] Ute Ashlyn 11/11/2023 1 [facility] [employer] Ute Ashlyn [id number] Ute Ashlyn 12/10/2023 1 [facility] [employer] Ute Ashlyn [id number] Ute Ashlyn 03/23/2024 1 [facility] [employer] Ute Ashlyn [id number] Tue Ashlyn Notes Date Note Type Note Provider [...] She is working with Andreina Greer APRN, PENDING [facility] and will be [...] but she has also been to her service learning coordinator/ophthalm ologist and had her glasses changed but [...] She came in later that day to potato picker the Aimovig 70 mg/mL sample and [...] with psychiatry on this. Imer Lieberman MD [address] [place] [address] [place], [address], [facility] 05/28/2023 13:26:47 10/07/2023 text/html Follow-up [...] She is working with Andreina Greer APRN, [facility] comprehensive [facility] management [facility] and will be [...] but she has also been to her service learning coordinator/ophthalm ologist and had her glasses changed but [...] She came in later that day to potato picker the Aimovig 70 mg/mL sample and [...] with psychiatry on this. Imer Lieberman MD [address] [place] [address] Winston Caro YAKOV, [phone], [facility] 10/13/2023 11:40:53 11/11/2023 text/html Follow-up [...] She is working with Andreina Greer APRN, [facility] comprehensive [facility] and will be [...] but she has also been to her service learning coordinator/ophthalm ologist and had her glasses changed but [...] She came in later that day to potato picker the Aimovig 70 mg/mL sample and [...] with psychiatry on this. Imer Lieberman MD [address] [place] [address], [phone], [facility] 11/11/2023 11:32:39 12/10/2023 text/html Follow-up [...] She is working with Andreina Greer APRN, [facility] comprehensive [facility] management [facility] and will be [...] but she has also been to her service learning coordinator/ophthalm ologist and had her glasses changed but [...] She came in later that day to potato picker the Aimovig 70 mg/mL sample and [...] with psychiatry on this. Imer Lieberman MD [address] [place] [address] [place], [address], [facility] 12/10/2023 12:17:54 03/23/2024 text/html Follow-up [...] She is working with Andreina Greer APRN, PENDING S[facility] comprehensive pain management center and will be [...] but she has also been to her service learning coordinator/ophthalm ologist and had her glasses changed but [...] She came in later that day to potato picker the Aimovig 70 mg/mL sample and [...] with psychiatry on this. Imer Lieberman MD [address] [place] [address] [place], [address], [facility] 03/23/2024 13:04:47 OBGyn Episode No OBEpisode recorded.
--- OUTSIDE RECORDS SUMMARY | 2024-09-27 12:01 | XMS_ITS | Clinical Summary ---
Author Organization [facility], Address [address] [place] [address] [place] [address] Phone Care Team Providers Care Tile Trimmer Name Role Phone Villa Lr MD Primary Care Provider +1- [phone] Allergies No known active allergies Medications clonazePAM [...] D BEFORE MEALS DIRECTED. 1 Active Creon 54265-20653 units capsule TOME 1 C PSULA POR [...] Visit [facility], [address] [place] [address] Abdulkadir Osorio MD Chronic kidney [...] Visit [facility], [address] [place] [address] Abdulkadir Osorio MD [address] [place] [address] Health Maintenance Due Date Last [...] Glucose 105(H) 70 - 99 mg/dL [facility] Uric Acid 3.8 2.6 - 6.2 mg/dL [facility] Comment:Therapeutic target f or gout patients: <6.0 BUN 11 6 - 24 mg/dL [facility] Creatinine 0.58 0.57 - 1.00 mg/dL [facility] eGFR CKD-EPI CR 2020 112 >59 mL/min/1.7 3 [facility] BUN/Creatinine Ratio 19 9 - 23 [facility] Sodium 139 134 - 144 mmol/L [facility] Potassium 4.3 3.5 - 5.2 mmol/L [facility] Chloride 103 96 - 106 mmol/L [facility] Bicarbonate (CO2) 22 20 - 29 mmol/L [facility] Anion Gap 14.0 10.0 - 18.0 mmol/L [facility] Calcium 9.9 8.7 - 10.2 mg/dL [facility] Total Protein 6.6 6.0 - 8.5 g/dL [facility] Albumin 4.2 3.9 - 4.9 g/dL [facility] Globulin 2.4 1.5 - 4.5 g/dL [facility] Phosphorus 3.4 3.0 - 4.3 mg/dL [facility] 07/05/2024 11:4 4 AM EST 07/05/2024 us Abdulkadir Osorio MD LAB [id number] OLICITED RESULTS Final Result [facility] [address] [place] [address] * Microscopic Examination (07/05/2024 11:44 AM EST) WBC, Urine None seen 0 - 5 /hpf [facility] RBC, Urine None seen 0 - 2 /hpf [facility] Squamous Epithelial, Urine 0-10 0 - 10 /hpf [facility] Casts None seen None seen /lpf [facility] Bacteria, Urine None seen None seen/Few [facility] 07/05/2024 11:4 4 AM EST 07/05/2024 us Abdulkadir Osorio MD LAB MICROBIOLOGY - GENERAL ORD ERABLES Final Result [facility] [address] [place] [address] * (ABNORMAL) Iron Panel (Fe, TIBC, TSAT) (07/05/2024 11:44 AM EST) TIBC 385 250 - 450 ug/dL [facility] UIBC 348 131 - 425 ug/dL [facility] Iron 37 27 - 159 ug/dL [facility] Iron Saturation (TSat) 10(L) 15 - 55 % [facility] 07/05/2024 11:4 4 AM EST 07/05/2024 us Abdulkadir Osorio MD LAB BLOOD ORDERABLES Final Res ult Performing Organization Address [facility] de Phone Number RUBEN Ruben Terell [address] [place] [address] * Urine Albumin / Creatinine Ratio (07/05/2024 11:44 AM EST) Creatinine, Ur 55.2 Not Estab. mg/dL [facility] Urine Microalbumin <3.0 Not Estab. ug/mL [facility] Microalbumin/Crea tinine Ratio <5 0 - 29 mg/g creat [facility] Comment: ? Normal: ?0 - ??29 ? Moderately increased: 30 - 300 ? Severely increased: ? >300 07/05/2024 11:4 4 AM EST 07/05/2024 us Abdulkadir Osorio MD LAB URINE ORDERABLES Final Res ult Performing Organization Address [facility] de Phone Number JJ Miranda [address] [place] [address] * Vitamin D 25 Hydroxy (07/05/2024 11:44 AM EST) Vitamin D, 25-OH, Total 30.0 30.0 - 100.0 ng/mL [facility] Comment: Vitamin D deficiency has been defined by the [place] of Medicine and an Endocrine Society practice guideline as a level of serum 25-OH vitamin D less than 20 ng/mL (1,2). The Endocrine Society went on to further define vitamin D insufficiency as a level between 21 and 29 ng/mL (2). 1. IOM ([place] of [employer]). 2010. Dietary reference ?? intakes [...] BLOOD ORDERABLES Final Res ult [facility] [address] [place] [address] * (ABNORMAL) Urinalysis with microscopic (07/05/2024 11:44 AM EST) Specific [place], Urine 1.011 1.005 - 1.030 [facility] pH Urine 8.0(H) 5.0 - 7.5 [facility] Color, Urine Yellow Yellow [facility] [phone] Appearance Urine Clear Clear [facility] WBC Esterase Urine Negative Negative [facility] Protein, Ur Negative Negative/Tra ce [facility] Glucose, Ur Negative Negative [facility] Ketones, Urine Negative Negative [facility] Blood Urine Negative Negative [facility] [phone] Bilirubin Urine Negative Negative [facility] [phone] Urobilinogen Urine 0.2 0.2 - 1.0 mg/dL [facility] Nitrite, Urine Negative Negative [facility] Microscopic Examination Comment [facility] Comment:Microscopic follows if indicated. Other Microsc. Observations See below: [facility] [phone] Comment:Microscopic was casper cated and was performed. 07/05/2024 11:4 4 AM EST 07/05/2024 us Abdulkadir Osorio MD LAB URINE ORDERABLES Final Res ult [facility] [address] [place] [address] * (ABNORMAL) CBC and Differential (07/05/2024 11:44 AM EST) WBC 7.6 3.4 - 10.8 x10E3/uL [facility] RBC 4.00 3.77 - 5.28 x10E6/uL [facility] Hemoglobin 11.7 11.1 - 15.9 g/dL [facility] Hematocrit 38.1 34.0 - 46.6 % [facility] MCV 95 79 - 97 fL [facility] MCH 29.3 26.6 - 33.0 pg [facility] MCHC 30.7(L) 31.5 - 35.7 g/dL [facility] RDW 13.1 11.7 - 15.4 % [facility] Platelets 284 150 - 450 x10E3/uL [facility] Neutrophils Relative 61 Not Estab. % [facility] Lymphocytes Relative 30 Not Estab. % [facility] Monocytes 8 Not Estab. % [facility] Eosinophils Relative 1 Not Estab. % [facility] Basophils Relative 0 Not Estab. % [facility] Neutrophils Absolute 4.6 1.4 - 7.0 x10E3/uL [facility] Lymphocytes Absolute 2.3 0.7 - 3.1 x10E3/uL [facility] Monocytes Absolute 0.6 0.1 - 0.9 x10E3/uL [facility] Eosinophils Absolute 0.1 0.0 - 0.4 x10E3/uL [facility] Basophils Absolute 0.0 0.0 - 0.2 x10E3/uL [facility] Immature Granulocytes 0 Not Estab. % [facility] Immature Grans (Absolute) 0.0 0.0 - 0.1 x10E3/uL [facility] 07/05/2024 11:4 4 AM EST 07/05/2024 Abdulkadir Osorio MD LAB BLOOD ORDERABLES Final Res ult [facility] [address] [place] [address] * PTH, Intact (07/05/2024 11:44 AM EST) PTH 20 15 - 65 pg/mL [facility] 07/05/2024 11:4 4 AM EST 07/05/2024 us Abdulkadir Osorio MD LAB BLOOD ORDERABLES Final Res ult [facility] [address] [place] [address] * Magnesium (07/05/2024 11:44 AM EST) Magnesium 1.9 1.6 - 2.3 mg/dL [facility] 07/05/2024 11:4 4 AM EST 07/05/2024 Abdulkadir Osorio MD LAB BLOOD ORDERABLES Final Res ult Performing Organization Address City/[facility]/ZIP Co de Phone Number [facility] [address] [place] [address] * (ABNORMAL) Hemoglobin A1c (07/05/2024 11:44 AM EST) Hemoglobin A1C 7.4(H) 4.8 - 5.6 % [facility] Comment: ? Prediabetes: 5.7 - 6.4 ? Diabetes: >6.4 ? Glycemic control for adults with diabetes: <7.0 07/05/2024 11:4 4 AM EST 07/05/2024 Abdulkadir Osorio MD LAB BLOOD ORDERABLES Final Res ult Performing Organization Address [facility] Co de Phone Number [facility] [address] [place] [address] * (ABNORMAL) Ferritin (07/05/2024 11:44 AM EST) Ferritin 11(L) 15 - 150 ng/mL [facility] 07/05/2024 11:4 4 AM EST 07/05/2024 Abdulkadir Osorio MD LAB BLOOD ORDERABLES Final Res ult Performing Organization Address City/[facility]/ZIP Co de Phone Number [facility] [address] [place] [address] from Last 3 Months [facility] Care Teams Tile Trimmer Relationship Specialty Start Date End Date Villa Lr MD [address] [place] [address] PCP - General 05/04/19
== END 2024-09-27 11:23 | disposition home or self-care (01) ==
LOC: HO.HMCH 10:38
PROVIDERS: PCP Internal Medicine; Visit Provider Internal Medicine
DX: E78.00 Pure hypercholesterolemia, unspecified (principal); E11.9 Type 2 diabetes mellitus without complications; I10 Essential (primary) hypertension; G43.909 Migraine, unspecified, not intractable, without status migrainosus; J45.40 Moderate persistent asthma, uncomplicated; J30.9 Allergic rhinitis, unspecified; G47.33 Obstructive sleep apnea (adult) (pediatric); M47.816 Spondylosis without myelopathy or radiculopathy, lumbar region; K59.04 Chronic idiopathic constipation; K21.9 Gastro-esophageal reflux disease without esophagitis; K82.8 Other specified diseases of gallbladder; F33.9 Major depressive disorder, recurrent, unspecified; R79.89 Other specified abnormal findings of blood chemistry; E55.9 Vitamin D deficiency, unspecified; R74.8 Abnormal levels of other serum enzymes; N32.81 Overactive bladder; M25.571 Pain in right ankle and joints of right foot; M25.572 Pain in left ankle and joints of left foot; G47.00 Insomnia, unspecified; F41.9 Anxiety disorder, unspecified

== ENCOUNTER → 2024-09-27 10:38 | Outpatient (BNVA) | payer OTHER, SELFPAY | PROVIDERS: PCP Internal Medicine; Visit Provider Internal Medicine | DX: E78.00 Pure hypercholesterolemia, unspecified (principal); E11.9 Type 2 diabetes mellitus without complications; I10 Essential (primary) hypertension; G43.909 Migraine, unspecified, not intractable, without status migrainosus; J45.40 Moderate persistent asthma, uncomplicated | CPT/HCPCS: 96127; 99212 ==

== ENCOUNTER 2024-10-07 10:00 | Outpatient (RCR) | payer OTHER, SELFPAY ==
--- NOTE | 2024-09-09 08:45 | MHC.PT.EP ---
[facility] [place] [facility] [place] Office [place] Office [address] Colleen De Los Santos [address] [phone] F: [phone] F: [phone] F: [phone] F: [phone] Physical Therapy Plan of Care Date of Evaluation: 09/09/24 Date of Surgery: n/a Diagnosis: R ankle pain, L ankle pain Assessment: Patient is a 48 year old female presenting to PT with complaints of pain in her B ankles. Pt reports onset of pain began 1.5 years ago due to insidious onset. She presents today with impairments in pain, ankle ROM, tenderness to palpation, gait mechanics. 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 Pt expresses detention goal of reducing pain, and is motivated to work towards this in PT. Clinical presentation today is most consistent with signs and sx associated with B ankle pain and pt will benefit from skilled PT 2 week x 4 weeks to address the following problems and impairments noted upon evaluation: pain, ankle ROM, tenderness to palpation, gait mechanics. 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 The prescribed treatment plan of care is medically necessary. Co-morbidities of anxiety, depression, HTN, DM were identified and taken into considerations of plan of care. Pt was educated on HEP, role of PT, prognosis, POC. Frequency and Duration: The patient will be seen 2 x week x 4 weeks Short Term Goals: Pt will demonstrate ability to move through available ankle range with min to no pain in 2 weeks. Pt will demonstrate less tenderness to palpation of her B ankles in 2 weeks. Snf Goals: Pt will demonstrate improved LEFI score by 9 points in 4 weeks for improved functional mobility. Pt will demonstrate ability to ambulate with min to no pain in 4 weeks for improved access to the community. Pt will demonstrate ability to negotiate stairs with min to no pain in 4 weeks for improved access to his home. Treatment Plan: Modalities to reduce pain, spasms and effusion. Manual therapy to restore motion and function. Therapeutic exercise to improve strength and flexibility. Neuromuscular re-education for posture and balance. Therapeutic activities to return to functional activities of daily living. Electronically signed by: Brittany Singer, PT, DPT, ATC Please sign and return to therapist. Thank you for your referral.
--- NOTE | 2024-11-01 07:49 | MHC.PT.DC ---
[facility] [place] [facility] [place] [facility] [place] Office [address] Colleen De Los Santos [address] [phone] F: [phone] F: [phone] F: [phone] F: [phone] Physical Therapy Discharge Report Diagnosis: R ankle pain, L ankle pain Date of Surgery: n/a Date of Evaluation: 09/09/24 Date of Discharge: 11/01/24 Treatments to Date: 8 Cancellations to Date: 0 No Shows to Date: 0 Discharge Status: Improved Function Independent with HEP Discharge Summary: Pt saw ACCOUNTING TECHNICIAN at last visit and plan was to d/c as she was feeling better. Electronically signed by: Brittany Singer, PT, DPT, ATC Please sign and return to therapist. Thank you for your referral.
== END 2024-11-01 07:50 | disposition home or self-care (01) ==
LOC: HO.PTCHIC 10:00
PROVIDERS: PCP Internal Medicine; Visit Provider Internal Medicine
DX: M25.571 Pain in right ankle and joints of right foot (principal); M25.572 Pain in left ankle and joints of left foot
CPT/HCPCS: 97110; 97161

== ENCOUNTER 2024-10-25 13:16 | Outpatient (AMB) | payer OTHER, SELFPAY ==
--- NOTE | 2024-10-25 13:18 | MHC.OFFVIS ---
Vital Signs 10/25/24 13:21 Height 5 ft 4 in Weight 217 lb BMI 37.2 BP 118/76 Blood Pressure Location Lt brachial Position Sitting Pulse 75 Pulse Source Pulse Oximeter Pulse Oximetry (%) 99 Oxygen Delivery Method Room Air Intake Visit Reasons: MRI FOLLOW UP Intake Note: Pain today 6/10 Organizational Development Director Required: No Accompanied by: Spouse Allergies meclizine Adverse Reaction (Verified 10/25/24 13:21) tachycardia metoclopramide Adverse Reaction (Verified 10/25/24 13:21) tachycardia HPI Comments Details: The patient is a 48-year-old female presenting with chronic lower back pain and to discuss recent lumbar spine MRI results. Her ongoing back pain with radiculopathy is related to a lumbar disc herniation at the L5-S1 level. This has been associated with degenerative disc changes and neuroforaminal stenosis. The pain typically radiates to the right lateral and posterior leg, with occasional involvement of the left, exhibiting characteristics of numbness and tingling. Pain severity has been described as aching, stabbing, and shooting, rated at 6/10 at rest and 8/10 with walking or movements. Past management included epidural steroid injections at L5-S1, offering good symptom relief for a 6 months duration. The patient has a history of diabetes, managed with medication. Imaging confirms the presence of left renal cysts, with ongoing renal evaluation per patient. - Onset: Chronic back pain associated with lumbar disc pathology. - Quality: Aching, stabbing, shooting pain, numbness and tingling. - Location: Across the lower back, radiating to the right lateral leg. - Radiation: Occasionally involves the left leg but primarily the right. - Exacerbating Factors: Physical activity and specific movements like bending, twisting, walking, prolonged standing. - Relieving Factors: Previous Bilateral L5-S1 epidural steroid injections provided 6 months pain relief. - Interference: Pain influences daily activities and functional status, disrupts sleep. - Affect: Pain impacts functional capabilities and discomfort levels. - Analgesia: Previous bilateral TFESI at L5-S1 provided 6 months of pain relief; current pain level is 6/10 while sitting, 8/10 walking. - Adverse Effects: No adverse effects reported from past interventions. - Activities of Daily Living: Pain affects daily activities, functioning, sleep, necessitating ongoing management strategies. - Aberrant Drug Related Behaviors: Not reported or indicated. Past Procedures: 08/31/24: Bilateral Diagnostic L3-L4 DR L5 MBB- 0% pain relief 07/28/24: Right knee Synvisc injection-90% ongoing pain relief 03/31/24: Left knee cortisone injection at [facility]--good pain relief 05/01/23: Bilateral L5-S1 TFESI-70% pain relief for for 6 months 10/09/22: Bilateral L5-S1 TFESI-80% pain relief for 6 months PFSH Medical History Overactive bladder Diarrhea Morbid obesity with BMI of 40.0-44.9, adult Biliary dyskinesia Elevated TSH Obesity (BMI 30-39.9) Depression Anxiety Insomnia Obstructive sleep apnea Vitamin D deficiency 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 myelopathy or radiculopathy Elevated LFTs Allergic rhinitis Asthma Migraine Pure hypercholesterolemia Benign essential hypertension Diabetes mellitus IBS (irritable bowel syndrome) Gastroparesis Surgical History History of surgical removal of skin lesion (07/26/24) Status post epidural steroid injection History of cardiac cath Hx of tubal ligation Hx of colonoscopy (~03/2018) Hx of endoscopy History of surgery of head Hx of hysterectomy (~08/2011) Family History Father Diabetes Hypertension Heart problem Mother Arthritis Diabetes Hypertension Maternal Grandmother Breast cancer, Onset Age: 72 Family/Other Diabetes Hypertension Heart problem Social History Household Members: Spouse Housing: House Are you a primary director day care center to a significant other at home: No Do you presently have visiting nurse or other home services: No Alcohol intake: current Alcohol intake frequency: former alcohol drinker Comment: NOT INDICATED Patient Tobacco Use Status: Never used Tobacco e-Cigarette/Vaping Use: Never Used Second Hand Smoke Exposure: No Advance Directives Date on File: 03/20/16 service: No Current occupational status: disabled Cognitive needs: No Hearing needs: No Vision needs: Yes Female Reproductive History Menstrual Age of Menarche: 13 Review of Systems Const Details: - Musculoskeletal: Reports radiating back pain and associated numbness and tingling, right>left. - Neurological: Denies bladder or bowel dysfunction or saddle anesthesia. All systems reviewed & are unremarkable except as noted in HPI and below Physical Exam Vital Signs: Last Vital Signs Pulse 75 10/25/24 13:21 BP 118/76 10/25/24 13:21 Pulse Ox 99 10/25/24 13:21 Oxygen Delivery Method Room Air 10/25/24 13:21 BMI result Body Mass Index 37.2 General: Appears afebrile. Alert and oriented. Mood and affect appropriate. Follows and participates in conversation appropriately. Respiratory effort is unlabored. No cough. Able to transition from sit to stand unassisted. Ambulates with slightly antalgic gait without limping. General: Yes no CVA tenderness Back/Spine/Pelvis Other: Limited lumbar ROM due to pain. Lumbar extension and axial rotation reproduces mild to moderate pain. Flexion forward and bending is limited and reproduces moderate to severe pain. Positive facet loading bilaterally. Demonstrates 5/5 strength of quadriceps bilaterally and flexion/dorsiflexion of bilateral feet against resistance. Straight leg rise with dorsiflexion is positive bilaterally. DTR intact, patellar reflex diminished bilaterally. Alessandro test positive bilaterally. No groin pain with I/E hip rotations bilaterally. Valsalva maneuver reproduces midline low back pain. Back: no CVA tenderness Cervical Spine: cervical ROM normal, cervical muscular tenderness and No Cervical spine tenderness Thoracic/Lumbar Spine: thoracic and lumbar spine normal to inspection, No Thoracic/lumbar spine scar(s), Lasegue's sign positive (right>left) bilateral and localized, pain with thoraco-lumbar ROM, paraspinal muscle tenderness, thoraco-lumbar ROM limited, No thoracic spinal tenderness and lumbar spinal tenderness (L4-S1) Pelvis: buttock tenderness bilaterally Sacroiliac joints: bilaterally tender to palpation Extrem General: Yes capillary refill normal, Yes no clubbing, cyanosis or edema and Yes no calf tenderness Results Reviewed Results Reviewed: MR LUMBAR SPINE WITHOUT CONTRAST 09/22/24 CLINICAL INFORMATION: Radiculopathy, lumbar region. COMPARISON: February 26, 2023. TECHNIQUE: MRI of the lumbar spine was obtained using routine sequences without contrast. FINDINGS: Last rib-bearing vertebra labeled T12. Marginal osteophyte formation and disc desiccation at L5-S1. No bone marrow STIR signal abnormality. Normal alignment. Conus colitis in central inferior endplate of L1 with normal signal. T12-L1: No disc herniation. No neuroforamina stenosis. L1-2: No disc herniation. No neuroforamina stenosis. L2-3: Mild broad-based disc bulging. No disc herniation. No neuroforamina stenosis. L3-4: Broad-based disc bulging. No disc herniation. Facet joint and ligamentum flavum hypertrophy. No compression upon neural elements. L4-5: Broad-based disc bulging. Facet joint and ligamentum flavum hypertrophy. No compression upon neural elements. L5-S1: There is a broad-based disc herniation abutting the S1 nerve roots. Facet joint hypertrophy resulting in bilateral neuroforamina stenosis encroaching the L4 exiting nerve roots. No prevertebral compartment hematoma, mass or fluid collection. There are multiple large cystic lesions in the renal pelvis of the left kidney. Soft tissue fullness, left adrenal gland. IMPRESSION: Multilevel spondylosis more conspicuous at L5-S1 with a broad-based disc herniation encroaching the S1 and L5 nerve roots. Assessment & Plan Assessment & Plan (1) Lumbar degenerative disc disease: Code(s): M51.36 - Other intervertebral disc degeneration, lumbar region Category: Medical (2) Sacroiliac joint pain: Code(s): M53.3 - Sacrococcygeal disorders, not elsewhere classified Category: Medical (3) Lumbar spondylosis: Code(s): M47.816 - Spondylosis without myelopathy or radiculopathy, lumbar region Category: Medical (4) Lumbar disc herniation with radiculopathy: Code(s): M51.16 - Intervertebral disc disorders with radiculopathy, lumbar region Category: Medical Plan Lumbar spine MRI results were discussed with patient today. For the lumbar disc herniation and spinal neuroforaminal stenosis, we plan to repeat bilateral L5-S1 epidural steroid injections following insurance approval, aiming for symptom alleviation. Given the previous efficacy, this measure serves to mitigate sciatic symptoms. Schedule repeat Bilateral L5-S1 TFESI with sedation and fluoroscopy for ongoing bilateral radicular symptoms. We note a causative association with elevated blood sugars due to steroid therapy, and the patient is to manage glycemic levels diligently. The patient's long-term diabetes management and renal evaluation will continue ongoing under specified specialist supervision. All questions and concerns have been answered and patient agreed with the plan. Follow up after injection and sooner if needed. Anticoagulation: Patient not on anticoagulant Justification for interventional therapy: ? Patient with average pain > 6/10 ? Patient has exhausted conservative therapy, NSAIDs, physical therapy The risks, consequences, alternatives, and benefits of various treatment options were discussed with the patient in great detail, including conservative management, injections and procedures. I informed her of the hyperglycemic effects of steroids. Patient was informed and verbally consented to the use of an ambient scribe for clinic note documentation during this visit. Coding Level of Care Code Est Pt Level 4 (41793) Complex EM visit Add On G2211 Diagnoses Lumbar degenerative disc disease M51.36 Sacroiliac joint pain M53.3 Lumbar spondylosis M47.816 Lumbar disc herniation with radiculopathy M51.16
[2024-10-25 13:21] VITALS: BP 118/76; PULSE 75; O2SAT 99; BMI 37.2
--- OUTSIDE RECORDS SUMMARY | 2024-10-25 15:46 | XMS_ITS | Encounter Summary ---
Author Organization [facility] Address [address] [place] [address] Care Team Providers Care Journalism Intern Name Role Phone Unavailable Primary Care Provider Unavailabl e Encounter Details Date Type Department Care Team (Latest Contact Info) Description 03/18/[address] [facility] CONVERSIONS Dental, Provider, DDS Social History [...]
--- OUTSIDE RECORDS SUMMARY | 2024-10-25 15:46 | XMS_ITS | Clinical Summary ---
Author Organization [facility], Address [address] [place] [address] [place] [address] Phone Care Team Providers Care Lifter Driver Name Role Phone Villa Lr MD Primary Care Provider +1- [phone] Allergies No known active allergies Medications clonazePAM [...] D BEFORE MEALS DIRECTED. 1 Active Creon 49827-38901 units capsule TOME 1 C PSULA POR [...] Visit [facility], [address] [place] [address] Abdulkadir Osorio MD Chronic kidney disease, stage 2 (mild) (Primary Dx) from Last 3 Months Immunizations Immunization Administration Dates Next Due Influenza, Quadrivalent, Preservative [...] Visit [facility], [address] [address] Abdulkadir Osorio MD [address] [place] [address] [place] [address] Health Maintenance Due Date Last Done Comments Hepatitis B Vaccine (1 of 3 - 19+ 3-dose series) 12/14/1995 Pneumococcal Vaccine: Peds ( 0 to 5 Years) and At-Risk Patients (6 to 49 Years) (1 of 2 - PCV) 12/14/1995 Diabetes: Ophthalmology Exam 09/29/2019 Diabetes: Pedal Pulse Checked 09/29/2019 Diabetes: Sensory Foot Exam 09/29/2019 Diabetes: Visual Foot Exam 09/29/2019 Diabetes: Hemoglobin A1C 10/03/2024 07/05/2024 Influenza Vaccine (Season Ended) 2025 04/19/20, 03/28/2019 Procedures Procedure Name Priority Date/Time Associated Diagnosis Comments HEMOGLOBIN A1C Routine 07/05/2024 11:44 AM EST from Last 3 Months or Most Recently Relevant to Health Maintenance Results * (ABNORMAL) Hemoglobin A1c (07/05/2024 11:44 AM EST) Hemoglobin A1C 7.4(H) 4.8 - 5.6 % [facility] Comment: ? Prediabetes: 5.7 - 6.4 ? Diabetes: >6.4 ? Glycemic control for adults with diabetes: <7.0 07/05/2024 11:4 4 AM EST 07/05/2024 us Abdulkadir Osorio MD LAB BLOOD ORDERABLES Final Res ult [facility] [address] [place] [phone] from Last 3 Months or Most Recently Relevant to Health Maintenance Insurance [facility] Care Teams Lifter Driver Relationship Specialty Start Date End Date Villa Lr MD [address] [place] [address] PCP - General 05/04/19
--- OUTSIDE RECORDS SUMMARY | 2024-10-25 15:46 | XMS_ITS | Encounter Summary ---
Author Organization [facility], Address [address] [place] [address] Phone Care Team Providers Care Driver Starting Gate Name Role Phone Villa Lr MD Primary Care Provider +1- [phone] Encounter Details Date Type Department Care Team (Late st Contact Info) Description 06/10/2022 Documentation Only [facility], [address] [address] Abdulkadir Osorio MD [address] [place] [address] [place] [address] Social History Tobacco Use Types [...] Visit [facility], [address] [place] [address] Abdulkadir Osorio MD [address] [place] [address] documented as of this encounter Visit Diagnoses Not on filedocumented in this encounter Care Teams Driver Starting Gate Relationship Specialty Start Date End Date Villa Lr MD [address] [place] [address] PCP - General 05/04/19 documented as of this encounter
--- OUTSIDE RECORDS SUMMARY | 2024-10-25 15:46 | XMS_ITS | Clinical Summary ---
Author Organization [employer] Address [address] [place] [address] Care Team Providers Care Zigzag Appliquer Name Role Phone Unavailable Primary Care Provider [...]
--- OUTSIDE RECORDS SUMMARY | 2024-10-25 15:46 | XMS_ITS | Data Portability ---
Author Organization [facility] [employer], [employer] Address [address] [facility] [place] [address] Care Team Providers Care Focuser Name Role Phone LATIA RASHID Referring Provider LATIA RASHID Primary Care Provider [phone] Assessment Encounter Date Assessment Date Assessment LastModified [...] today, I reviewed the propranolol prescription in [place] and noted that she had a 90-day [...] with April 2023 confirmation of medications from [facility]) -From [facility]: propranolol 60 mg twice daily topiramate 100 mg twice daily, Aimovig 140 mg/mL monthly autoinjector and Ubrelvy 100 mg as needed for breakthrough migraine from [facility] (she was also concurrently on rizatriptan [...] with April 2023 confirmation of medications from [facility]) -From [facility]: propranolol 60 mg twice daily topiramate 100 mg twice daily, Aimovig 140 mg/mL monthly autoinjector and Ubrelvy 100 mg as needed for breakthrough migraine from [facility] (she was also concurrently on rizatriptan [...] la versi? ? ?n gratuita del traductor [employer] (with edits by me) -Continue propranolol 60mg [...] with April 2023 confirmation of medications from [facility]) -From [facility]: propranolol 60 mg twice daily topiramate 100 mg twice daily, Aimovig 140 mg/mL monthly autoinjector and Ubrelvy 100 mg as needed for breakthrough migraine from [facility] (she was also concurrently on rizatriptan [...] extra dose in her refrigerator and to pickle sorter the new prescription when it gets. Therefore, [...] with April 2023 confirmation of medications from [facility]) -From [facility]: propranolol 60 mg twice daily topiramate 100 mg twice daily, Aimovig 140 mg/mL monthly autoinjector and Ubrelvy 100 mg as needed for breakthrough migraine from [facility] (she was also concurrently on rizatriptan [...] extra dose in her refrigerator and to pickle sorter the new prescription when it gets. Therefore, [...] with April 2023 confirmation of medications from [facility]) -From [facility]: propranolol 60 mg twice daily topiramate 100 mg twice daily, Aimovig 140 mg/mL monthly autoinjector and Ubrelvy 100 mg as needed for breakthrough migraine from [facility] (she was also concurrently on rizatriptan [...] mL subcutane ous auto-inje ctor [address] [id number] [address] [place], [address], 03/23/2024 12:47:06 Ubrelvy 100 mg tablet [address] [id number] [address] [place], [address], 03/23/2024 12:47:07 Ajovy 225 mg/1.5 mL subcutane ous auto-inje ctor 2023 [facility]24 [id number] [address] [place], [address], 12/10/2023 12:17:38 propranol ol 60 mg tablet [address] [facility] [address] [place], [address], 11/11/2023 11:21:02 topiramat e 50 mg tablet [address] [facility] [address] [place], [address], 11/11/2023 11:21:03 Aimovig Autoinjec tor 140 mg/mL subcutane ous auto-inje ctor 2023 024 [facility] [address] [place], [address], 03/23/2024 12:59:57 Ubrelvy 100 mg tablet 2023 024 [facility], [address] [place], [address], 11/11/2023 11:21:02 topiramat e 100 mg tablet 2023 024 [facility], [address] [place], [address], 10/07/2023 10:22:21 propranol ol 60 mg tablet 2023 024 [facility], [address] [place], [address], 10/07/2023 10:22:21 Aimovig Autoinjec tor 140 mg/mL subcutane ous auto-inje ctor 2023 024 [facility] [address] [place], [address], 03/23/2024 12:59:57 Ubrelvy 100 mg tablet 2023 024 [facility], [address] [place], [address], 10/07/2023 10:22:21 topiramat e 100 mg tablet 2022 023 [facility] #[facility], [address] [place], [address], 05/28/2023 09:56:01 propranol ol 60 mg tablet 2022 023 [facility] #[facility], [address] [place], [address], 05/28/2023 09:56:01 Aimovig Autoinjec tor 140 mg/mL subcutane ous auto-inje ctor 2022 023 [facility] [address] [place], [address], 03/23/2024 12:59:57 Ubrelvy 100 mg tablet 2022 023 [facility] #[id number], [address] [facility], [place], [address], 05/28/2023 09:56:01 Patient TargetsNo targets recorded. 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 She will pickle sorter a sample today. 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 She will pickle sorter a sample today. 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 She will pickle sorter a sample today. 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 She will pickle sorter a sample today. 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 She was running out of [employer] for breakthrough migraine reported October 01, 2022. [...] not discuss the addition of rizatriptan through [employer] [facility] which we have discussed previously as she [...] over the potential side effects. She will pickle sorter a sample today. 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 Procedures Surgical History Date Name Laterality Status Provider Name and Address Organization Details Recorded Time 4 botulinum injection completed Imer Lieberman MD [address] [place], [place] [address], [address], [facility] 03/23/2024 12:37:46 4 botulinum injection completed Imer Lieberman MD [address] [place], [place] [address], [address], [facility] 12/10/2023 11:56:10 4 botulinum injection completed Imer Lieberman MD [address] [place], [place] [address], [address], [facility] 11/11/2023 11:10:22 4 botulinum injection completed ENRIKE NORTON PA-C [address] [place], [place] [address], [address], [facility] 10/07/2023 10:03:49 3 botulinum injection completed ENRIKE NORTON PA-C [address] [place], [place] [address], [address], [facility] 05/28/2023 09:39:33 3 botulinum injection completed ENRIKE NORTON PA-C [address] [place], [place] [address], [address], [facility] 04/24/2023 10:42:13 3 botulinum injection completed ENRIKE NORTON PA-C [address] [place], [place] [address], [address], [facility] 03/18/2023 10:47:21 3 botulinum injection completed ENRIKE NORTON PA-C [address] [place], [place] [address], [address], [facility] 01/23/2023 09:59:39 3 botulinum injection completed ENRIKE NORTON PA-C [address] [place] [address] B, YAKOV [place], [address], [facility] 12/19/2022 11:33:40 3 botulinum injection completed ENRIKE NORTON PA-C [address] [place] [address] B, YAKOV [place], [address], [facility] 11/28/2022 13:56:45 3 botulinum injection completed ENRIKE NORTON PA-C [address] [place] [address] B, YAKOV [place], [address], [facility] 10/29/2022 10:47:52 3 botulinum injection completed ENRIKE NORTON PA-C [address] [place] [address] B, YAKOV [place], [address], [facility] 10/01/2022 13:50:41 3 botulinum injection completed Imer Lieberman MD [address] [place] [address] B, YAKOV [place], [address], [facility] 08/14/2022 17:00:39 3 botulinum injection completed ENRIKE NORTON PA-C [address] [place] [address] B, YAKOV [place], [address], [facility] 07/09/2022 14:05:58 2 botulinum injection completed Imer Lieberman MD [address] [place] [address] B, YAKOV [place], [address], [facility] 05/16/2022 13:33:52 2 botulinum injection completed ENRIKE NORTON PA-C [address] [place] [address] B, YAKOV Monter[place], [address], [facility] 03/14/2022 14:10:23 2 botulinum injection completed Imer Lieberman MD [address] [place] [address] B, YAKOV [place], [address], [facility] 02/13/2022 09:15:23 2 botulinum injection completed ENRIKE NORTON PA-C [address] [place] [address], YAKOV Montero, [address], [facility] 12/06/2021 13:50:32 2 botulinum injection completed Imer Lieberman MD [address] [place] [address] B, YAKOV Montero, [address], [facility] 11/07/2021 13:30:06 2 botulinum injection completed ENRIKE NORTON PA-C [address] [place] [address] B, YAKOV Monter[place], [address], [facility] 09/05/2021 14:12:15 2 botulinum injection completed Imer Lieberman MD [address] [place] [address], YAKOV Montero, [address], [facility] 07/25/2021 15:27:34 2 botulinum injection completed ENRIKE NORTON PA-C [address] [place] [address], YAKOV Montero, [address], [facility] 07/12/2021 08:55:03 1 botulinum injection completed ENRIKE NORTON PA-C [address] [place] [address] B, YAKOV Monter[place], [address], [facility] 05/29/2021 22:54:52 1 botulinum injection completed Imer Lieberman MD [address] [place] [address], YAKOV Montero, [address], [facility] 04/25/2021 14:30:46 1 botulinum injection completed Imer Lieberman MD [address] [place] [address], YAKOV [place]ro, [address], [facility] 01/24/2021 19:05:02 1 botulinum injection completed Imer Lieberman MD [address] [place] [address] B, YAKOV [place], [address], [facility] 10/25/2020 18:09:08 Imaging Results None recorded. 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 Dystonia 48977067 G24.3 Facial spasm 60387792 G5 1.39 Migraine without aura 56 008131 G43.009 [id number] Imer Lieberman MD [facility] [address] [place] [address] JOSE RETANAYAKOV RICHARD [address]460 4 01/24/2021 14:50:22 01/25/2021 08:16:40 Idiopathic non-familial dystonia 162596269 G24.1 Dystonia 88620066 G24.3 Facial spasm 39892399 G5 1.39 Migraine without aura 56 519442 G43.009 [id number] Imer Lieberman MD [facility] [address] [place] [address] JOSE RETANAYAKOV RICHARD [id number] 4 02/28/2021 11:51:24 02/28/2021 12:29:37 Idiopathic non-familial dystonia 938963344 G24.1 Dystonia 29810894 G24.3 Facial spasm 89665007 G5 1.39 Migraine without aura 56 263749 G43.009 [id number] Imer Lieberman MD [facility] [address] [place] [address] Gordo RETANAWINSTONYAKOV IRCHARD [address] 4 04/25/2021 12:22:14 04/26/2021 07:40:15 Idiopathic non-familial dystonia 980694680 G24.1 Dystonia 30406952 G24.3 Facial spasm 81754174 G5 1.39 Migraine without aura 56 682580 G43.009 [id number] Imer Lieberman MD [facility] [address] [place] [address] JOSE RETANAYAKOV RICHARD [address] 4 05/29/2021 10:02:07 05/30/2021 15:05:44 Idiopathic non-familial dystonia 442484492 G24.1 Dystonia 57951763 G24.3 Facial spasm 99512215 G5 1.39 Migraine without aura 56 014650 G43.009 Migraine with aura 38278 06 G43.109 [id number] Imer Lieberman MD [facility] [address] [place] [address] Gordo MONTERO YAKOV [address] 4 07/12/2021 08:51:06 08/03/2021 15:14:49 Idiopathic non-familial dystonia 695620769 G24.1 Dystonia 23475024 G24.3 Facial spasm 59798111 G5 1.39 Migraine without aura 56 233937 G43.009 [id number] Imer Lieberman MD [facility] [address] [place] [address] WINSTONYAKOV RICHARD [address]-507 4 07/25/2021 13:52:53 07/25/2021 16:35:44 Idiopathic non-familial dystonia 641538633 G24.1 Dystonia 48034102 G24.3 Facial spasm 77290640 G5 1.39 Migraine without aura 56 828158 G43.009 [id number] Imer Lieberman MD [facility] [address] [place] [address] Gordo RETANAWINSTONYAKOV RICHARD [address] 4 09/05/2021 14:01:17 09/10/2021 10:57:43 Idiopathic non-familial dystonia 192997551 G24.1 Dystonia 22595391 G24.3 Facial spasm 57008004 G5 1.39 Migraine without aura 56 940691 G43.009 5019 Imer Lieberman MD [facility] [address] [place] [address] Gordo RETANAWINSTONYAKOV RICHARD [address]994 4 11/07/2021 12:25:50 11/07/2021 18:58:37 Idiopathic non-familial dystonia 199609600 G24.1 Dystonia 52273248 G24.3 Facial spasm 46273377 G5 1.39 Migraine without aura 56 218371 G43.009 [id number] Imer Lieberman MD [facility] [address] [place] [address] Gordo RETANAWINSTONYAKOV RICHARD [address] 4 12/06/2021 13:06:48 12/10/2021 15:27:19 Idiopathic non-familial dystonia 756837849 G24.1 Dystonia 80198370 G24.3 Facial spasm 04211325 G5 1.39 Migraine without aura 56 860425 G43.009 6156 Imer Lieberman MD [facility] [address] [place] [address] Gordo YAKOV MONTERO [address]-199 4 02/13/2022 07:56:35 02/13/2022 09:24:50 Idiopathic non-familial dystonia 895180191 G24.1 Dystonia 80116441 G24.3 Facial spasm 70644358 G5 1.39 Migraine without aura 56 413307 G43.009 6451 Imer Lieberman MD [facility] [address] [place] [address] Gordo YAKOV MONTERO [address]-078 4 03/14/2022 13:58:56 03/19/2022 09:35:39 Idiopathic non-familial dystonia 805641874 G24.1 Dystonia 32612394 G24.3 Facial spasm 25121694 G5 1.39 Migraine without aura 56 996260 G43.009 7012 Imer Lieberman MD [facility] [address] [place] [address] [place] [address] 4 05/16/2022 11:40:07 05/16/2022 15:55:55 Idiopathic non-familial dystonia 211581548 G24.1 Dystonia 26400230 G24.3 Facial spasm 26747441 G5 1.39 Migraine without aura 56 880932 G43.009 [id number] Imer Lieberman MD [facility] [address] [place] [address] JOSE Caro YAKOV MONTERO [address] 4 07/09/2022 13:59:24 07/25/2022 12:39:21 Idiopathic non-familial dystonia 128098575 G24.1 Dystonia 00493431 G24.3 Facial spasm 97078267 G5 1.39 Migraine without aura 56 102993 G43.009 Migraine with aura 33849 06 G43.109 7846 Imer Lieberman MD [facility] [address] [place] [address] [place] [address] 4 08/14/2022 15:04:31 08/14/2022 17:43:36 Idiopathic non-familial dystonia 098947611 G24.1 Dystonia 44973378 G24.3 Facial spasm 97354661 G5 1.39 Migraine without aura 56 311378 G43.009 8449 ENRIKE NORTON PA-C [facility] [address] [place] [address] [place] [address] 4 10/01/2022 13:45:47 10/03/2022 11:40:32 Idiopathic non-familial dystonia 335677257 G24.1 Dystonia 84914874 G24.3 Facial spasm 71200551 G5 1.39 Migraine without aura 56 472126 G43.009 Migraine with aura 94418 06 G43.109 [id number] Imer Lieberman MD [facility] [address] [place] [address] Gordo MONTERO YAKOV 37[address]-969 4 10/29/2022 10:18:41 11/04/2022 15:06:43 Idiopathic non-familial dystonia 030900435 G24.1 Dystonia 75206677 G24.3 Facial spasm 04836015 G5 1.39 Migraine without aura 56 597377 G43.009 Migraine with aura 09551 06 G43.109 9112 ENRIKE NORTON PA-C [facility] [address] [place] [address] Gordo RETANAWINSTON, YAKOV 86444-773 4 11/28/2022 13:27:59 12/02/2022 15:28:22 Idiopathic non-familial dystonia 366127728 G24.1 Dystonia 75690104 G24.3 Facial spasm 91348674 G5 1.39 Migraine without aura 56 226615 G43.009 Migraine with aura 16555 06 G43.109 9373 Imer Lieberman MD [facility] [address] [place] [address] JOSE MONTEROYAKOV [address]-455 4 12/19/2022 11:07:15 12/23/2022 16:34:25 Idiopathic non-familial dystonia 738243849 G24.1 Dystonia 28572842 G24.3 Facial spasm 33355298 G5 1.39 Migraine without aura 56 051501 G43.009 Migraine with aura 30356 06 G43.109 [id number] Imer Lieberman MD [facility] [address] [place] [address] Gordo RETANAWINSTON, YAKOV [address] 4 01/23/2023 09:21:21 02/10/2023 16:21:14 Idiopathic non-familial dystonia 548597388 G24.1 Dystonia 11727713 G24.3 Facial spasm 00521831 G5 1.39 Migraine without aura 56 796078 G43.009 Migraine with aura 19011 06 G43.109 [id number] Imer Lieberman MD [facility] [address] [place] [address] Gordo MONTERO YAKOV [address]-573 4 03/18/2023 10:30:58 03/19/2023 17:32:28 Idiopathic non-familial dystonia 760558701 G24.1 Dystonia 97966264 G24.3 Facial spasm 57882644 G5 1.39 Migraine without aura 56 426929 G43.009 Migraine with aura 43336 06 G43.109 [id number] ENRIKE NORTON PA-C [facility] [address] [place] [address] Gordo RETANAWINSTON, YAKOV 16682-130 4 04/24/2023 10:15:35 04/30/2023 10:38:58 Idiopathic non-familial dystonia 772260091 G24.1 Dystonia 46080110 G24.3 Facial spasm 99748513 G5 1.39 Migraine without aura 56 392104 G43.009 Migraine with aura 03091 06 G43.109 [id number] Imer Lieberman MD [facility] [address] [place] [address] Gordo RETANAWINSTON, YAKOV 31769-103 4 05/28/2023 09:14:15 05/29/2023 16:35:04 Idiopathic non-familial dystonia 889371474 G24.1 Dystonia 70426645 G24.3 Facial spasm 58608280 G5 1.39 Migraine without aura 56 728311 G43.009 Migraine with aura 50095 06 G43.109 [id number] Imer Lieberman MD [facility] [address] [place] [address] Gordo RETANAWINSTONYAKOV RICHARD [id number] 4 10/07/2023 09:31:55 10/13/2023 13:14:20 Idiopathic non-familial dystonia 482622832 G24.1 Dystonia 93362158 G24.3 Facial spasm 24352767 G5 1.39 Migraine without aura 56 876123 G43.009 Migraine with aura 23877 06 G43.109 [id number] Imer Lieberman MD [facility] [address] [place] [address] Gordo RETANAWINSTON, YAKOV 67[address]-769 4 11/11/2023 10:36:51 11/11/2023 11:43:45 Idiopathic non-familial dystonia 787490938 G24.1 Dystonia 79381061 G24.3 Facial spasm 27697519 G5 1.39 Migraine without aura 56 160182 G43.009 Migraine with aura 58738 06 G43.109 [id number] Imer Lieberman MD [facility] [address] [place] [address] [place] [address] 4 12/10/2023 11:11:30 12/10/2023 12:19:37 Idiopathic non-familial dystonia 742420356 G24.1 Dystonia 93644674 G24.3 Facial spasm 64465806 G5 1.39 Migraine without aura 56 356660 G43.009 Migraine with aura 89846 06 G43.109 [id number] Imer Lieberman MD [facility] [address] [place] [address] [place] [address] 4 03/23/2024 11:39:14 03/23/2024 17:16:47 Idiopathic non-familial dystonia 656864524 G24.1 Dystonia 18564795 G24.3 Facial spasm 56802057 G5 1.39 Migraine without aura 56 978193 G43.009 Migraine with aura 01943 06 G43.109 Health Concerns Section Related Observation LastModified by Organization Detai ls LastModified Time None Recorded Concern Status LastModified by Organization Details LastModified Time None Recorded Advance Directives Directive None Recorded Payers Encounter Date Sequence Insurance Name Policy Number Policy Leone Covered Member ID Leone Member ID Guarantor Name 05/28/2023 1 [facility] ([facility] [employer] Ute Ashlyn [id number] Ute Ashlyn 10/07/2023 1 [facility] ([facility] [employer] Ute Ashlyn [id number] Ute Ashlyn 11/11/2023 1 [facility] ([facility] [employer] Ute Ashlyn [id number] Ute Ashlyn 12/10/2023 1 [facility] ([facility] [employer] Ute Ashlyn [id number] Ute Ashlyn 03/23/2024 1 [facility] ([facility] [employer] Ute Ashlyn [id number] Ute Ashlyn Notes Date Note Type Note [...] She is working with Andreina Greer APRN, [facility] comprehensive pain management center and [...] but she has also been to her drive away driver/ophthalm ologist and had her glasses changed [...] She came in later that day to pickle sorter the Aimovig 70 mg/mL sample and ? [...] with psychiatry on this. Imer Lieberman MD [address] [place] [address] [place], [address], [place] [facility] 05/28/2023 13:26:47 10/07/2023 text/html Follow-up breakthrough headache [...] She is working with Andreina Greer APRN, [facility] comprehensive pain management center and [...] but she has also been to her drive away driver/ophthalm ologist and had her glasses changed [...] She came in later that day to pickle sorter the Aimovig 70 mg/mL sample and ? [...] with psychiatry on this. Imer Lieberman MD [address] [place] [address] Winston Caro YAKOV, [id number], [facility] 10/13/2023 11:40:53 11/11/2023 text/html Follow-up of [...] She is working with Andreina Greer APRN, [facility] comprehensive pain management center and [...] but she has also been to her drive away driver/ophthalm ologist and had her glasses changed [...] She came in later that day to pickle sorter the Aimovig 70 mg/mL sample and ? [...] psychiatry on this. Imer Lieberman MD [address] [place] [address], [phone], [facility] 11/11/2023 11:32:39 12/10/2023 text/html Follow-up of [...] She is working with Andreina Greer APRN, [facility] comprehensive pain management center and [...] but she has also been to her drive away driver/ophthalm ologist and had her glasses changed [...] She came in later that day to pickle sorter the Aimovig 70 mg/mL sample and ? [...] to decide between Botox or Aimovig. >>>>>>>>>>>>>>>Domingo heni of August 14, 2022 Botox injections comments [...] with psychiatry on this. Imer Lieberman MD [address] [place] [address] [place], [phone], [facility] 12/10/2023 12:17:54 03/23/2024 text/html Follow-up of his tory of debilitation headache--Past history includes a bipolar disorder and depression, and fibromyalgia and back pain.--She is accompanied by her , Nura; Not present, Catherine, her sister. >>>>>>>>>>>>Septyumi r 2023Since December 10, 2023 Neurology follow-up [...] She is working with Andreina Greer APRN, [facility] comprehensive pain management center and [...] but she has also been to her drive away driver/ophthalm ologist and had her glasses changed [...] She came in later that day to pickle sorter the Aimovig 70 mg/mL sample and ? [...] with psychiatry on this. Imer Lieberman MD [address] [place] [address] [place], [phone], [facility] 03/23/2024 13:04:47 OBGyn Episode No OBEpisode recorded.
--- OUTSIDE RECORDS SUMMARY | 2024-10-25 15:46 | XMS_ITS | Encounter Summary ---
Author Organization [facility], Address [address] [place] [address] Phone Care Team Providers Care Digital Imaging Technician Name Role Phone Villa Lr MD Primary Care Provider +1- [phone] Encounter Details Date Type Department Care Team (Late st Contact Info) Description 06/16/2023 Documentation Only [facility], [address] [place] [address] Abdulkadir Osorio MD [address] [place] [address] [place] [address] Social History Tobacco Use Types [...] Visit [facility], [address] [place] [address] Abdulkadir Osorio MD [address] [place] [address] documented as of this encounter Visit Diagnoses Not on filedocumented in this encounter Care Teams Digital Imaging Technician Relationship Specialty Start Date End Date Villa Lr MD [address] [place] [address] PCP - General 05/04/19 documented as of this encounter
--- OUTSIDE RECORDS SUMMARY | 2024-10-25 15:46 | XMS_ITS | Encounter Summary ---
Author Organization [employer] [facility] Address [address] [place] [address] [place] [address] Care Team Providers Care Assisted Living Coordinator Name Role Phone Unavailable Primary Care Provider Unavailabl e Encounter Details Date Type Department Care Team (Latest Contact Info) Description 05/17/2021 Abstract [facility] CONVERSIONS Dental, Provider, DDS Social History [...]
== END 2024-10-25 13:47 | disposition home or self-care (01) ==
LOC: HO.PMC 13:17
PROVIDERS: PCP Internal Medicine; Visit Provider Nurse Practitioner Family
DX: M51.369 Other intervertebral disc degeneration, lumbar region without mention of lumbar back pain or lower extremity pain (principal); M53.3 Sacrococcygeal disorders, not elsewhere classified; M47.816 Spondylosis without myelopathy or radiculopathy, lumbar region; M51.16 Intervertebral disc disorders with radiculopathy, lumbar region
CPT/HCPCS: 99214; G2211

== ENCOUNTER → 2024-10-25 13:16 | Outpatient (BNVA) | payer OTHER, SELFPAY | PROVIDERS: PCP Internal Medicine; Visit Provider Nurse Practitioner Family | DX: M51.360 Other intervertebral disc degeneration, lumbar region with discogenic back pain only (principal); M53.3 Sacrococcygeal disorders, not elsewhere classified; M47.816 Spondylosis without myelopathy or radiculopathy, lumbar region; M51.16 Intervertebral disc disorders with radiculopathy, lumbar region | CPT/HCPCS: 99212 ==

== ENCOUNTER 2024-10-26 14:50 | Outpatient (REF) | payer OTHER, SELFPAY ==
--- OUTSIDE RECORDS SUMMARY | 2024-10-26 18:37 | XMS_ITS | Clinical Summary ---
Author Organization [employer] Address [address] [place] [address] Care Team Providers Care First Dyer Name Role Phone Unavailable Primary Care Provider [...]
--- OUTSIDE RECORDS SUMMARY | 2024-10-26 18:37 | XMS_ITS | Clinical Summary ---
Author Organization [facility], Address [address] [place] [address] [place] [address] Phone Care Team Providers Care Funeral Attendant Name Role Phone Villa Lr MD Primary Care Provider +1- [phone] Allergies No known active allergies Medications clonazePAM [...] D BEFORE MEALS DIRECTED. 1 Active Creon 84829-85540 units capsule TOME 1 C PSULA POR [...] Active topiramate (TOPAMAX) 50 MG tablet TOME JOSTNI TABLETA POR V A [...] Visit [facility], [address] [place] [address] Abdulkadir Osorio MD Chronic kidney disease, [...] Visit [facility], [address] [place] [address] Abdulkadir Osorio MD [address] [place] [address] [place] [address] Health Maintenance Due Date Last Done [...] A1C 7.4(H) 4.8 - 5.6 % [facility] [place] Comment: ? Prediabetes: 5.7 - 6.4 ? Diabetes: >6.4 ? Glycemic control for adults with diabetes: <7.0 07/05/2024 11:4 4 AM EST 07/05/2024 us Abdulkadir Osorio MD LAB BLOOD ORDERABLES Final Res ult [facility] [place] [address] [place] [phone] from Last 3 Months or Most Recently Relevant to Health Maintenance Insurance [facility] Care Teams Funeral Attendant Relationship Specialty Start Date End Date Villa Lr MD [address] [place] [address] PCP - General 05/04/19
--- OUTSIDE RECORDS SUMMARY | 2024-10-26 18:37 | XMS_ITS | Encounter Summary ---
Author Organization [facility], Address [address] [place] [address] Phone Care Team Providers Care Nurse Aide Evaluator Name Role Phone Villa Lr MD Primary Care Provider +1- [phone] Encounter Details Date Type Department Care Team (Late st Contact Info) Description 06/16/2023 Documentation Only [facility], [address] [place] [address] Abdulkadir Osorio MD [address] [place] [address] [place] [address] Social History Tobacco Use Types [...] Visit [facility], [address] [place] [address] Abdulkadir Osorio MD [address] [place] [address] documented as of this encounter Visit Diagnoses Not on filedocumented in this encounter Care Teams Nurse Aide Evaluator Relationship Specialty Start Date End Date Villa Lr MD [address] [place] [address] PCP - General 05/04/19 documented as of this encounter
--- OUTSIDE RECORDS SUMMARY | 2024-10-26 18:37 | XMS_ITS | Encounter Summary ---
Author Organization [facility] Address [address] [place] [address] Care Team Providers Care Instrument Processing Tech Name Role Phone Unavailable Primary Care Provider Unavailabl e Encounter Details Date Type Department Care Team (Latest Contact Info) Description 03/18/[address] [facility] CONVERSIONS Dental, Provider, DDS Social [...]
--- OUTSIDE RECORDS SUMMARY | 2024-10-26 18:37 | XMS_ITS | Encounter Summary ---
Author Organization [employer] [facility] Address [address] [place] [address] Care Team Providers Care Parking Meter Mechanic Name Role Phone Unavailable Primary Care Provider Unavailabl e Encounter Details Date Type Department Care Team (Latest Contact Info) Description 05/17/2021 Abstract [facility] CONVERSIONS Dental, Provider, DDS Social [...]
--- OUTSIDE RECORDS SUMMARY | 2024-10-26 18:37 | XMS_ITS | Encounter Summary ---
Author Organization [facility], Address [address] [place] [address] Phone Care Team Providers Care Sales Trader Name Role Phone Villa Lr MD Primary Care Provider +1- [phone] Encounter Details Date Type Department Care Team (Late st Contact Info) Description 06/10/2022 Documentation Only [facility], [address] [place] [address] Abdulkadir Osorio MD [address] [place] [address] [place] [address] Social History Tobacco Use Types [...] Visit [facility], [address] [place] [address] Abdulkadir Osorio MD [address] [place] [address] documented as of this encounter Visit Diagnoses Not on filedocumented in this encounter Care Teams Sales Trader Relationship Specialty Start Date End Date Villa Lr MD [address] [place] [address] PCP - General 05/04/19 documented as of this encounter
== END 2024-10-26 14:51 | disposition home or self-care (01) ==
LOC: HO.LNP 14:50
PROVIDERS: PCP Internal Medicine; Visit Provider Obstetrics & Gynecology
DX: L02.215 Cutaneous abscess of perineum (principal)
CPT/HCPCS: 56405; 87070; 87205

== ENCOUNTER 2024-10-26 14:50 | Outpatient (AMB) | payer OTHER, SELFPAY ==
--- NOTE | 2024-10-26 15:28 | A.OFFVIS_ITS ---
Intake Visit Reasons: vaginal cyst Buggy Ladle Tender Required: Yes Buggy Ladle Tender Language: Farmer Vegetable Services: Buggy Ladle Tender Present (in person) Buggy Ladle Tender Name: KATRINA Quick Information Interpreted: non-clinical & clinical Drum Puller: Drum Puller Present (KATRINA Quick) Accompanied by: Self / Same As Patient Allergies meclizine Adverse Reaction (Verified 10/26/24 15:29) tachycardia metoclopramide Adverse Reaction (Verified 10/26/24 15:29) tachycardia HPI Comments Details: Presenting complaining of few day history of left perineal swelling that is tender, no fever or chills. [facility] Medical History Overactive bladder Diarrhea Morbid obesity with BMI of 40.0-44.9, adult Biliary dyskinesia Elevated TSH Obesity (BMI 30-39.9) Depression Anxiety Insomnia Obstructive sleep apnea Vitamin D deficiency 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 myelopathy or radiculopathy Elevated LFTs Allergic rhinitis Asthma Migraine Pure hypercholesterolemia Benign essential hypertension Diabetes mellitus IBS (irritable bowel syndrome) Gastroparesis Surgical History History of surgical removal of skin lesion (07/26/24) Status post epidural steroid injection History of cardiac cath Hx of tubal ligation Hx of colonoscopy (~03/2018) Hx of endoscopy History of surgery of head Hx of hysterectomy (~08/2011) Family History Father Diabetes Hypertension Heart problem Mother Arthritis Diabetes Hypertension Maternal Grandmother Breast cancer, Onset Age: 72 Family/Other Diabetes Hypertension Heart problem Social History Household Members: Spouse Housing: House Are you a primary director of primary care to a significant other at home: No Do you presently have visiting nurse or other home services: No Alcohol intake: current Alcohol intake frequency: former alcohol drinker Comment: NOT INDICATED Patient Tobacco Use Status: Never used Tobacco e-Cigarette/Vaping Use: Never Used Second Hand Smoke Exposure: No Advance Directives Date on File: 03/20/16 service: No Current occupational status: disabled Cognitive needs: No Hearing needs: No Vision needs: Yes Female Reproductive History Menstrual Age of Menarche: 13 Review of Systems Const All systems reviewed & are unremarkable except as noted in HPI and below Physical Exam General: Yes no CVA tenderness External Female Exam: No normal external appearance (Left months pubis 2 cm after) and normal appearance of the urethra Speculum Exam - Vagina: normal appearance of the vagina, normal palpation, no lesions and no masses Speculum Exam - Cervix: normal appearance of the cervix, normal palpation, no lesions, no masses and nontender Bimanual exam- vagina & uterus: normal bimanual exam, normal palpation, uterine size normal, normal palpation, uterine shape normal, No Cervical tenderness present and non-tender Bimanual Exam- Adnexa, other: normal adnexae Back/Spine/Pelvis Back: no CVA tenderness Office Procedures Incision/Drainage MINING AND QUARRYING MACHINERY REPAIRER Incision/Drainage MINING AND QUARRYING MACHINERY REPAIRER Details: Before the procedure was started d/w patient the procedure, alternatives (do nothing, medical rx), & all the risks associated with the procedure ( bleeding , infection, vulvar scarring, painful intercourse, injury to vessels, possible need for transfusion with all its risks) then patient signed the consent. Preoperative diagnosis: Perineal /left mons pubis Abscess. Operation: Perineal /left mons pubis Abscess I & D Post-operative diagnosis: Same Anesthesia: Lidocaine 1% 3cc used Procedure: The skin was prepped with Betadine, palpation was used for guidance, 11-blade was used to incise the skin contiguous with the abscess cavity. This yielded 5 cc of purulent fluid &substantially decompressed the swelling, a clean dressing was used at the end. The patient tolerated the procedure well. The patient was sent home in stable condition. Discharge Instructions: The patient was instructed to call if temp>100.4, abdominal pain, nausea/vomiting. This note was generated with a voice recognition program. Some errors may have been overlooked during the review of this note. Sometimes these errors may affect the content or meaning of a given sentence. 85470-W&D of vulva/perineum All charges added?: Procedure code (CPT) selection complete Assessment & Plan Assessment & Plan (1) Perineal abscess: Comment: Left mons pubis Code(s): L02.215 - Cutaneous abscess of perineum Category: Medical Plan: Discussed with the patient the finding on pelvic exam, Left mons pubis abscess recommended I&D. I&D done, culture sent, see procedure note. Instructions given the patient to call or go to emergency in case of fever, incision redness discharge or gapping otherwise follow-up in 2 weeks. Orders: Orders Incision & Drainage MINING AND QUARRYING MACHINERY REPAIRER Today L02.215 - Cutaneous abscess of perineum Coding Level of Care Code Procedure Only Diagnoses Perineal abscess L02.215 CPT Codes Incision/Drainage MINING AND QUARRYING MACHINERY REPAIRER - IDGYN 1: 47268-D&D of vulva/perineum ([id number])
--- OUTSIDE RECORDS SUMMARY | 2024-10-26 18:06 | XMS_ITS | Encounter Summary ---
Author Organization [facility], Address [address] [place] [address] Phone Care Team Providers Care Plant Protection Officer Name Role Phone Villa Lr MD Primary Care Provider +1- [phone] Encounter Details Date Type Department Care Team (Late st Contact Info) Description 06/10/2022 Documentation Only [facility], [address] [place] [address] Abdulkadir Osorio MD [address] [place] [address] [place] [address] Social History Tobacco Use Types [...] Visit [facility], [address] [place] [place] [address] Abdulkadir Osorio MD [address] [place] [address] documented as of this encounter Visit Diagnoses Not on filedocumented in this encounter Care Teams Plant Protection Officer Relationship Specialty Start Date End Date Villa Lr MD [address] [place] [address] PCP - General 05/04/19 documented as of this encounter
--- OUTSIDE RECORDS SUMMARY | 2024-10-26 18:06 | XMS_ITS | Encounter Summary ---
Author Organization [facility], Address [address] [place] [address] Phone Care Team Providers Care Unemployment Insurance Hearing Officer Name Role Phone Villa Lr MD Primary Care Provider +1- [phone] Encounter Details Date Type Department Care Team (Late st Contact Info) Description 06/16/2023 Documentation Only [facility], [address] [place] [address] Abdulkadir Osorio MD [address] [place] [address] [place] [address] Social History Tobacco Use Types [...] Visit [facility], [address] [place] [address] Abdulkadir Osorio MD [address] [place] [address] documented as of this encounter Visit Diagnoses Not on filedocumented in this encounter Care Teams Unemployment Insurance Hearing Officer Relationship Specialty Start Date End Date Villa Lr MD [address] [place] [address] PCP - General 05/04/19 documented as of this encounter
--- OUTSIDE RECORDS SUMMARY | 2024-10-26 18:06 | XMS_ITS | Clinical Summary ---
Author Organization [facility], Address [address] [place] [address] [place] [address] Phone Care Team Providers Care Ingredient Scaler Name Role Phone Villa Lr MD Primary Care Provider +1- [phone] Allergies No known active allergies Medications clonazePAM [...] D BEFORE MEALS DIRECTED. 1 Active Creon 74[address] units capsule TOME 1 C PSULA POR [...] Visit [facility], [address] [place] [address] Abdulkadir Osorio MD Chronic kidney disease, [...] Visit [facility], [address] [place] [address] Abdulkadir Osorio MD [address] [place] [address] [place] [address] Health Maintenance Due Date Last Done [...] A1C 7.4(H) 4.8 - 5.6 % [facility] Comment: ? Prediabetes: 5.7 - 6.4 ? Diabetes: >6.4 ? Glycemic control for adults with diabetes: <7.0 07/05/2024 11:4 4 AM EST 07/05/2024 us Abdulkadir Osorio MD LAB BLOOD ORDERABLES Final Res ult [facility] [address] [place] [id number] from Last 3 Months or Most Recently Relevant to Health Maintenance [place] [address] Care Teams Ingredient Scaler Relationship Specialty Start Date End Date Villa Lr MD [address] [place] [address] PCP - General 05/04/19
--- OUTSIDE RECORDS SUMMARY | 2024-10-26 18:06 | XMS_ITS | Encounter Summary ---
Author Organization [facility] Address [address] [place] [address] Care Team Providers Care Brick Tender Name Role Phone Unavailable Primary Care Provider Unavailabl e Encounter Details Date Type Department Care Team (Latest Contact Info) Description 05/17/2021 Abstract [facility] CONVERSIONS Dental, Provider, DDS Social [...]
--- OUTSIDE RECORDS SUMMARY | 2024-10-26 18:06 | XMS_ITS | Data Portability ---
Author Organization [facility] [employer] Address [address] [facility] [place] [address] Care Team Providers Care Digital X Ray Service Engineer Name Role Phone LATIA RASHID Referring Provider LATIA RASHID Primary Care Provider [phone] Assessment Encounter Date Assessment Date Assessment LastModified [...] today, I reviewed the propranolol prescription in [place] and noted that she had a 90-day [...] with April 2023 confirmation of medications from [facility]) -From [facility]: propranolol 60 mg twice daily topiramate 100 mg twice daily, Aimovig 140 mg/mL monthly autoinjector and Ubrelvy 100 mg as needed for breakthrough migraine from [facility] (she was also concurrently on rizatriptan [...] with April 2023 confirmation of medications from [facility]) -From [facility]: propranolol 60 mg twice daily topiramate 100 mg twice daily, Aimovig 140 mg/mL monthly autoinjector and Ubrelvy 100 mg as needed for breakthrough migraine from [facility] (she was also concurrently on rizatriptan [...] la versi? ? ?n gratuita del traductor [id number] [email or web address] (with edits by me) -Continue propranolol 60mg [...] with April 2023 confirmation of medications from [facility]) -From [facility]: propranolol 60 mg twice daily topiramate 100 mg twice daily, Aimovig 140 mg/mL monthly autoinjector and Ubrelvy 100 mg as needed for breakthrough migraine from [facility] (she was also concurrently on rizatriptan [...] extra dose in her refrigerator and to steel pickler the new prescription when it gets. [...] with April 2023 confirmation of medications from [facility]) -From [facility]: propranolol 60 mg twice daily topiramate 100 mg twice daily, Aimovig 140 mg/mL monthly autoinjector and Ubrelvy 100 mg as needed for breakthrough migraine from [facility] (she was also concurrently on rizatriptan [...] extra dose in her refrigerator and to steel pickler the new prescription when it gets. [...] with April 2023 confirmation of medications from [facility]) -From [facility]: propranolol 60 mg twice daily topiramate 100 mg twice daily, Aimovig 140 mg/mL monthly autoinjector and Ubrelvy 100 mg as needed for breakthrough migraine from [facility] (she was also concurrently on rizatriptan [...] mL subcutane ous auto-inje ctor 2023 024 [facility], [address] [place], [address], 03/23/2024 12:47:06 Ubrelvy 100 mg tablet 2023 024 [facility], [address] [place], [address], 03/23/2024 12:47:07 Ajovy 225 mg/1.5 mL subcutane ous auto-inje ctor 2023 024 [facility], [address] [place], [address], 12/10/2023 12:17:38 propranol ol 60 mg tablet 2023 024 [facility], [address] [place], [address], 11/11/2023 11:21:02 topiramat e 50 mg tablet 2023 024 [facility], [address] [place], [address], 11/11/2023 11:21:03 Aimovig Autoinjec tor 140 mg/mL subcutane ous auto-inje ctor 2023 024 [facility], [address] [place], [address], 03/23/2024 12:59:57 Ubrelvy 100 mg tablet 2023 024 [facility], [address] [place], [address], 11/11/2023 11:21:02 topiramat e 100 mg tablet 2023 024 [facility], [address] [place], [address], 10/07/2023 10:22:21 propranol ol 60 mg tablet 2023 024 [facility], [address] [place], [address], 10/07/2023 10:22:21 Aimovig Autoinjec tor 140 mg/mL subcutane ous auto-inje ctor 2023 024 [facility], [address] [place], [address], 03/23/2024 12:59:57 Ubrelvy 100 mg tablet 2023 024 [facility], [address] [place], [address], 10/07/2023 10:22:21 topiramat e 100 mg tablet 2022 023 [facility], [address] [place], [address], 05/28/2023 09:56:01 propranol ol 60 mg tablet 2022 023 [facility], [address] [place], [address], 05/28/2023 09:56:01 Aimovig Autoinjec tor 140 mg/mL subcutane ous auto-inje ctor 2022 023 [facility], [address] [place], [address], 03/23/2024 12:59:57 Ubrelvy 100 mg tablet 2022 023 [facility]78[facility], [address] [facility], [place], [address], 05/28/2023 09:56:01 Patient TargetsNo targets recorded. 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 She will steel pickler a sample today. 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 She will steel pickler a sample today. 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 She will steel pickler a sample today. 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 She will steel pickler a sample today. She will follow-up [...] management cyndy Not available 12/10/2023 11:56:12 03/23/2024 [id number] Her is a former wkncr-ok-vdpvu long-vat overhauler PREVIOUS MEDICATIONS Amitriptyline 75 mg, February [...] today, I reviewed the propranolol prescription in [place] and noted that she had a 90-day [...] every day. She was running out of UbrelQinging Weekly Flower Delivery for breakthrough migraine reported October 01, 2022. [...] not discuss the addition of rizatriptan through [employer] which we have discussed previously as [...] over the potential side effects. She will steel pickler a sample today. 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 Procedures Surgical History Date Name Laterality Status Provider Name and Address Organization Details Recorded Time 4 botulinum injection completed Imer Lieberman MD [address] [place], [place] [address], [address], [facility] 03/23/2024 12:37:46 4 botulinum injection completed Imer Lieberman MD [address] [place], [place] [address], [address], [facility] 12/10/2023 11:56:10 4 botulinum injection completed Imer Lieberman MD [address] [place], [place] [address], [address], [facility] 11/11/2023 11:10:22 4 botulinum injection completed ENRIKE NORTON PA-C [address] [place], [place] [address], [address], [facility] 10/07/2023 10:03:49 3 botulinum injection completed ENRIKE NORTON PA-C [address] [place], [place] [address], [address], [facility] 05/28/2023 09:39:33 3 botulinum injection completed ENRIKE NORTON PA-C [address] [place], [place] [address], [address], [facility] 04/24/2023 10:42:13 3 botulinum injection completed ENRIKE NORTON PA-C [address] [place], [place] [address], [address], [facility] 03/18/2023 10:47:21 3 botulinum injection completed ENRIKE NORTON PA-C [address] [place], [place] [address], [address], [facility] 01/23/2023 09:59:39 3 botulinum injection completed ENRIKE NORTON PA-C [address] [place] [address] B, YAKOV [place]tero, [address], [facility] 12/19/2022 11:33:40 3 botulinum injection completed ENRIKE NORTON PA-C [address] [place] [address] B, YAKOV Montero, [address], [facility] 11/28/2022 13:56:45 3 botulinum injection completed ENRIKE NORTON PA-C [address] [place] [address] B, YAKOV Montero, [address], [facility] 10/29/2022 10:47:52 3 botulinum injection completed ENRIKE NORTON PA-C [address] [place] [address] B, YAKOV Montero, [address], [facility] 10/01/2022 13:50:41 3 botulinum injection completed Imer Lieberman MD [address] [place] [address] B, YAKOV Montero, [address], [facility] 08/14/2022 17:00:39 3 botulinum injection completed ENRIKE NORTON PA-C [address] [place] [address] B, YAKOV Montero, [address], [facility] 07/09/2022 14:05:58 2 botulinum injection completed Imer Lieberman MD [address] [place] [address] B, YAKOV Montero, [address], [facility] 05/16/2022 13:33:52 2 botulinum injection completed ENRIKE NORTON PA-C [address] [place] [address] B, YAKOV Montero, [address], [facility] 03/14/2022 14:10:23 2 botulinum injection completed Imer Lieberman MD [address] [place] [address] B, YAKOV Montero, [address], [facility] 02/13/2022 09:15:23 2 botulinum injection completed ENRIKE NORTON PA-C [address] [place] [address], YAKOV Montero, [address], [facility] 12/06/2021 13:50:32 2 botulinum injection completed Imer Lieberman MD [address] [place] [address] B, YAKOV Montero, [address], [facility] 11/07/2021 13:30:06 2 botulinum injection completed ENRIKE NORTON PA-C [address] [place] [address] B, YAKOV Montero, [address], [facility] 09/05/2021 14:12:15 2 botulinum injection completed Imer Lieberman MD [address] [place] [address], YAKOV Montero, [address], [facility] 07/25/2021 15:27:34 2 botulinum injection completed ENRIKE NORTON PA-C [address] [place] [address], YAKOV Montero, [address], [facility] 07/12/2021 08:55:03 1 botulinum injection completed ENRIKE NORTON PA-C [address] [place] [address] B, YAKOV Montero, [address], [facility] 05/29/2021 22:54:52 1 botulinum injection completed Imer Lieberman MD [address] [place] [address], YAKOV Montero, [address], [facility] 04/25/2021 14:30:46 1 botulinum injection completed Imer Lieberman MD [address] [place] [address], YAKOV Montero, [address], [facility] 01/24/2021 19:05:02 1 botulinum injection completed Imer Lieberman MD [address] [place] [address] B, YAKOV Montero, [address], [facility] 10/25/2020 18:09:08 Imaging Results None [...] Code Diagnosis Note [id number] Imer Lieberman MD [facility] [address] [place] [address] JOSE MONTERO YAKOV [address] 4 10/25/2020 14:51:37 10/30/2020 14:49:52 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 Dystonia 76515654 G24.3 Facial spasm 63254958 G5 1.39 Migraine without aura 56 670068 G43.009 [id number] Imer Lieberman MD [facility] [address] [place] [address] JOSE RETANAYAKOV RICHARD [address]-096 4 01/24/2021 14:50:22 01/25/2021 08:16:40 Idiopathic non-familial dystonia 563903095 G24.1 Dystonia 06864546 G24.3 Facial spasm 81173818 G5 1.39 Migraine without aura 56 382743 G43.009 [id number] Imer Lieberman MD [facility] [address] [place] [address] JOSE RETANAYAKOV RICHARD [address]-124 4 02/28/2021 11:51:24 02/28/2021 12:29:37 Idiopathic non-familial dystonia 746787977 G24.1 Dystonia 68736972 G24.3 Facial spasm 30000311 G5 1.39 Migraine without aura 56 965595 G43.009 [id number] Imer Lieberman MD [facility] [address] [place] [address] Gordo RETANAWINSTONYAKOV RICHARD [address]7822-450 4 04/25/2021 12:22:14 04/26/2021 07:40:15 Idiopathic non-familial dystonia 787772196 G24.1 Dystonia 95592551 G24.3 Facial spasm 67184067 G5 1.39 Migraine without aura 56 600807 G43.009 [id number] Imer Lieberman MD [facility] [address] [place] [address] JOSE RETANAYAKOV RICHADR 08077-912 4 05/29/2021 10:02:07 05/30/2021 15:05:44 Idiopathic non-familial dystonia 332513267 G24.1 Dystonia 30998175 G24.3 Facial spasm 64381681 G5 1.39 Migraine without aura 56 140909 G43.009 Migraine with aura 91379 06 G43.109 [id number] Imer Lieberman MD [facility] [address] [place] [address] Gordo MONTERO YAKOV [address]98[address]-636 4 07/12/2021 08:51:06 08/03/2021 15:14:49 Idiopathic non-familial dystonia 037631533 G24.1 Dystonia 54077616 G24.3 Facial spasm 03160305 G5 1.39 Migraine without aura 56 238148 G43.009 [id number] Imer Lieberman MD [facility] [address] [place] [address] WINSTONYAKOV RICHARD 33287-436 4 07/25/2021 13:52:53 07/25/2021 16:35:44 Idiopathic non-familial dystonia 476005820 G24.1 Dystonia 42884589 G24.3 Facial spasm 84797778 G5 1.39 Migraine without aura 56 936339 G43.009 [id number] Imer Lieberman MD [facility] [address] [place] [address] Gordo RETANAWINSTONYAKOV RICHARD 94482-626 4 09/05/2021 14:01:17 09/10/2021 10:57:43 Idiopathic non-familial dystonia 161325387 G24.1 Dystonia 88942775 G24.3 Facial spasm 33920849 G5 1.39 Migraine without aura 56 040189 G43.009 [id number] Imer Lieberman MD [facility] [address] [place] [address] Gordo RETANAWINSTONYAKOV RICHARD 60246-142 4 11/07/2021 12:25:50 11/07/2021 18:58:37 Idiopathic non-familial dystonia 438001660 G24.1 Dystonia 86063694 G24.3 Facial spasm 63015005 G5 1.39 Migraine without aura 56 094979 G43.009 [id number] Imer Lieberman MD [facility] [address] [place] [address] Gordo RETANAWINSTONYAKOV RICHARD 89934-544 4 12/06/2021 13:06:48 12/10/2021 15:27:19 Idiopathic non-familial dystonia 306357711 G24.1 Dystonia 69939137 G24.3 Facial spasm 03169033 G5 1.39 Migraine without aura 56 234360 G43.009 [id number] Imer Lieberman MD [facility] [address] [place] [address] Gordo YAKOV MONTERO [address]86-526 4 02/13/2022 07:56:35 02/13/2022 09:24:50 Idiopathic non-familial dystonia 826037672 G24.1 Dystonia 08871632 G24.3 Facial spasm 19835285 G5 1.39 Migraine without aura 56 733793 G43.009 [id number] Imer Lieberman MD [facility] [address] [place] [address] Gordo YAKOV MONTERO 60576-195 4 03/14/2022 13:58:56 03/19/2022 09:35:39 Idiopathic non-familial dystonia 721959088 G24.1 Dystonia 87227326 G24.3 Facial spasm 88562927 G5 1.39 Migraine without aura 56 174306 G43.009 7012 Imer Lieberman MD [facility] [address] [place] [address] [place] [address] 4 05/16/2022 11:40:07 05/16/2022 15:55:55 Idiopathic non-familial dystonia 854681594 G24.1 Dystonia 50525975 G24.3 Facial spasm 62565294 G5 1.39 Migraine without aura 56 471058 G43.009 [id number] Imer Lieberman MD [facility] [address] [place] [address] JOSE Caro YAKOV MONTERO [id number] 4 07/09/2022 13:59:24 07/25/2022 12:39:21 Idiopathic non-familial dystonia 743787519 G24.1 Dystonia 21892393 G24.3 Facial spasm 10530150 G5 1.39 Migraine without aura 56 054367 G43.009 Migraine with aura 07337 06 G43.109 [id number] Imer Lieberman MD [facility] [address] [place] [address] [place] [address] 4 08/14/2022 15:04:31 08/14/2022 17:43:36 Idiopathic non-familial dystonia 966654155 G24.1 Dystonia 52835657 G24.3 Facial spasm 03207233 G5 1.39 Migraine without aura 56 786848 G43.009 [id number] ENRIKE NORTON PA-C [facility] [address] [place] [address] [place] [address] 4 10/01/2022 13:45:47 10/03/2022 11:40:32 Idiopathic non-familial dystonia 112022736 G24.1 Dystonia 82114696 G24.3 Facial spasm 82072480 G5 1.39 Migraine without aura 56 933462 G43.009 Migraine with aura 61495 06 G43.109 [id number] Imer Lieberman MD [facility] [address] [place] [address] Gordo MONTERO YAKOV 474[address]-895 4 10/29/2022 10:18:41 11/04/2022 15:06:43 Idiopathic non-familial dystonia 422083424 G24.1 Dystonia 13378377 G24.3 Facial spasm 21372056 G5 1.39 Migraine without aura 56 268918 G43.009 Migraine with aura 88283 06 G43.109 9112 ENRIKE NORTON PA-C [facility] [address] [place] [address] Gordo RETANAWINSTON, YAKOV 05297-770 4 11/28/2022 13:27:59 12/02/2022 15:28:22 Idiopathic non-familial dystonia 691580892 G24.1 Dystonia 24292209 G24.3 Facial spasm 15252799 G5 1.39 Migraine without aura 56 167925 G43.009 Migraine with aura 25552 06 G43.109 9373 Imer Lieberman MD [facility] [address] [place] [address] JOSE MONTEROYAKOV 64[address]-901 4 12/19/2022 11:07:15 12/23/2022 16:34:25 Idiopathic non-familial dystonia 795931807 G24.1 Dystonia 59999804 G24.3 Facial spasm 94378312 G5 1.39 Migraine without aura 56 739326 G43.009 Migraine with aura 89408 06 G43.109 [id number] Imer Lieberman MD [facility] [address] [place] [address] Gorod RETANAWINSTON, YAKOV 89945-890 4 01/23/2023 09:21:21 02/10/2023 16:21:14 Idiopathic non-familial dystonia 771444727 G24.1 Dystonia 58989774 G24.3 Facial spasm 18080705 G5 1.39 Migraine without aura 56 680389 G43.009 Migraine with aura 02267 06 G43.109 [id number] Imer Lieberman MD [facility] [address] [place] [address] Gordo MONTERO YAKOV 51307-598 4 03/18/2023 10:30:58 03/19/2023 17:32:28 Idiopathic non-familial dystonia 385124628 G24.1 Dystonia 82952774 G24.3 Facial spasm 62148507 G5 1.39 Migraine without aura 56 654128 G43.009 Migraine with aura 80104 06 G43.109 [id number] ENRIKE NORTON PA-C [facility] [address] [place] [address] Gordo RETANAWINSTON, YAKOV 53606-884 4 04/24/2023 10:15:35 04/30/2023 10:38:58 Idiopathic non-familial dystonia 907659419 G24.1 Dystonia 36812573 G24.3 Facial spasm 69127667 G5 1.39 Migraine without aura 56 475199 G43.009 Migraine with aura 02945 06 G43.109 [id number] Imer Lieberman MD [facility] [address] [place] [address] Gordo RETANAWINSTON, YAKOV 58303-726 4 05/28/2023 09:14:15 05/29/2023 16:35:04 Idiopathic non-familial dystonia 324252030 G24.1 Dystonia 09299407 G24.3 Facial spasm 53518309 G5 1.39 Migraine without aura 56 881992 G43.009 Migraine with aura 87381 06 G43.109 [id number] Imer Lieberman MD [facility] [address] [place] [address] Gordo RETANAWINSTONYAKOV RICHARD 26011-193 4 10/07/2023 09:31:55 10/13/2023 13:14:20 Idiopathic non-familial dystonia 581328815 G24.1 Dystonia 16405961 G24.3 Facial spasm 67643528 G5 1.39 Migraine without aura 56 111329 G43.009 Migraine with aura 06485 06 G43.109 [id number] Imer Lieberman MD [facility] [address] [place] [address] Gordo RETANAWINSTON, YAKOV [id number] 4 11/11/2023 10:36:51 11/11/2023 11:43:45 Idiopathic non-familial dystonia 476044475 G24.1 Dystonia 45376932 G24.3 Facial spasm 33135052 G5 1.39 Migraine without aura 56 681748 G43.009 Migraine with aura 42481 06 G43.109 [id number] Imer Lieberman MD [facility] [address] [place] [address] [place] [address]-107 4 12/10/2023 11:11:30 12/10/2023 12:19:37 Idiopathic non-familial dystonia 988797457 G24.1 Dystonia 04842790 G24.3 Facial spasm 70277532 G5 1.39 Migraine without aura 56 664128 G43.009 Migraine with aura 42751 06 G43.109 [id number] Imer Lieberman MD [facility] [address] [place] [address] [place] [address]-116 4 03/23/2024 11:39:14 03/23/2024 17:16:47 Idiopathic non-familial dystonia 245381137 G24.1 Dystonia 09815846 G24.3 Facial spasm 17978170 G5 1.39 Migraine without aura 56 223001 G43.009 Migraine with aura 30955 06 G43.109 Health Concerns Section Related Observation LastModified by Organization Detai ls LastModified Time None Recorded Concern Status LastModified by Organization Details LastModified Time None Recorded Advance Directives Directive None Recorded Payers Encounter Date Sequence Insurance Name Policy Number Policy Leone Covered Member ID Leone Member ID Guarantor Name 05/28/2023 1 [facility] [employer] Ute Ashlyn [id number] Ute Ashlyn 10/07/2023 1 [facility] ([facility] [employer] Ute Ashlyn [id number] Ute Ashlyn 11/11/2023 1 [facility] ([facility] [employer] Ute Ashlyn [id number] Ute Ashlyn 12/10/2023 1 [facility] ([facility] [employer] Ute Ashlyn [id number] Ute Ashlyn 03/23/2024 1 [facility] ([facility] [employer] Ute Ashlyn [id number] Ute Ashlyn Notes Date Note Type Note [...] is working with Andreina Greer APRN, [facility] comprehensive pain management center and will be [...] but she has also been to her hobbing press operator/ophthalm ologist and had her glasses [...] She came in later that day to steel pickler the Aimovig 70 mg/mL sample and [...] psychiatry on this. Imer Lieberman MD [address] [place] [address] [place], [address], [place] [facility] 05/28/2023 13:26:47 10/07/2023 text/html Follow-up breakthrough headache [...] is working with Andreina Greer APRN, [facility] comprehensive pain management center and will be [...] but she has also been to her hobbing press operator/ophthalm ologist and had her glasses [...] She came in later that day to steel pickler the Aimovig 70 mg/mL sample and [...] psychiatry on this. Imer Lieberman MD [address] [place] [address] Winston Caro YAKOV, [address], [facility] 10/13/2023 11:40:53 11/11/2023 text/html Follow-up [...] is working with Andreina Greer APRN, [facility] comprehensive pain management center and will be [...] but she has also been to her hobbing press operator/ophthalm ologist and had her glasses [...] She came in later that day to steel pickler the Aimovig 70 mg/mL sample and [...] with psychiatry on this. Imer Lieberman MD [address] [place] [address], [phone], [facility] 11/11/2023 11:32:39 12/10/2023 text/html Follow-up [...] is working with Andreina Greer APRN, [facility] comprehensive pain management center and will be [...] but she has also been to her hobbing press operator/ophthalm ologist and had her glasses [...] She came in later that day to steel pickler the Aimovig 70 mg/mL sample and [...] psychiatry on this. Imer Lieberman MD [address] [place] [address] [place], [phone], [facility] 12/10/2023 12:17:54 03/23/2024 text/html Follow-up [...] is working with Andreina Greer APRN, [facility] comprehensive pain management center and will be [...] but she has also been to her hobbing press operator/ophthalm ologist and had her glasses [...] She came in later that day to steel pickler the Aimovig 70 mg/mL sample and [...] with psychiatry on this. Imer Lieberman MD [address] [place] [address] [place], [phone], [facility] 03/23/2024 13:04:47 OBGyn Episode No OBEpisode recorded.
--- OUTSIDE RECORDS SUMMARY | 2024-10-26 18:06 | XMS_ITS | Clinical Summary ---
Author Organization [employer] Address [address] [place] [address] Care Team Providers Care Material Flow Analyst Name Role Phone Unavailable Primary Care Provider [...]
--- OUTSIDE RECORDS SUMMARY | 2024-10-26 18:06 | XMS_ITS | Encounter Summary ---
Author Organization [employer] [facility] Address [address] [place] [address] Care Team Providers Care Meal Miller Name Role Phone Unavailable Primary Care Provider Unavailabl e Encounter Details Date Type Department Care Team (Latest Contact Info) Description 03/18/2019 Abstract [facility] CONVERSIONS Dental, Provider, DDS Social History [...]
== END 2024-10-26 15:56 | disposition home or self-care (01) ==
LOC: HO.HWS 14:50
PROVIDERS: PCP Internal Medicine; Visit Provider Obstetrics & Gynecology
DX: N76.4 Abscess of vulva (principal)
CPT/HCPCS: 56405

== ENCOUNTER 2025-01-26 10:08 | Outpatient (REF) | payer OTHER, SELFPAY ==
--- OUTSIDE RECORDS SUMMARY | 2025-01-26 10:57 | XMS_ITS | Clinical Summary ---
Author Organization [facility], Address [address] [place] [address] [place] [address] Phone Care Team Providers Care Manager Life Insurance Name Role Phone Villa Lr MD Primary Care Provider +1- [phone] Allergies No known active allergies Medications clonazePAM [...] D BEFORE MEALS DIRECTED. 1 Active Creon 17558-98811 units capsule TOME 1 C PSULA POR [...] 10/13/2019 Hyperlipidemia 10/13/2019 Hypertensive disorder 10/13/2019 Immunizations Immunization Administration Dates Next Due Influenza, [...] Visit [facility], [address] [place] [address] Abdulkadir Osorio MD [address] [place] [address] Health Maintenance Due Date Last Done [...] Diabetes: Hemoglobin A1C 10/03/2024 07/05/2024 Influenza Vaccine (#1) 2025 04/19/2020, 2018 Procedures Procedure Name Priority Date/Time Associated Diagnosis Comments HEMOGLOBIN A1C Routine 07/05/2024 11:44 AM EST from Last 3 Months or Most Recently Relevant to Health Maintenance Results * (ABNORMAL) Hemoglobin A1c (07/05/2024 11:44 AM EST) Hemoglobin A1C 7.4(H) 4.8 - 5.6 % [facility] Comment: Prediabetes: 5.7 - 6.4 Diabetes: >6.4 Glycemic control for adults with diabetes: <7.0 07/05/2024 11:4 4 AM EST 07/05/2024 us Abdulkadir Osorio MD LAB BLOOD [facility]ABLES [facility] [address] [place] [phone] from Last 3 Months or Most Recently Relevant to Health Maintenance Insurance [address] [place] [address] [facility] [employer] Care Teams Manager Life Insurance Relationship Specialty Start Date End Date Villa Lr MD [address] [place] [address] PCP - General 05/04/19
--- OUTSIDE RECORDS SUMMARY | 2025-01-26 10:57 | XMS_ITS | Encounter Summary ---
Author Organization [employer] Address [address] [place] [address] Care Team Providers Care Ski Base Trimmer Name Role Phone Unavailable Primary Care Provider Unavailabl e Encounter Details Date Type Department Care Team (Latest Contact Info) Description 03/18/2019 Abstract [facility] CONVERSIONS Dental, Provider, DDS Social [...]
[2025-01-26 13:20] LABS: MANUAL DIFF FLAG NO
[2025-01-26 13:23] LABS: Appearance Urine Clear; Glucose Urine UA Negative (Negative); PH 7.0 (5.0-9.0); Specific Gravity - Urine <= 1.005 (1.005-1.025)
[2025-01-26 13:38] LABS: Hematocrit 37.2 % (37.0-47.0); Hemoglobin 11.3 g/dl (12.0-16.0); Imm Gran Abs Auto 0.03 X10*3/uL (0.00-0.03); Imm Gran Pct Auto 0.4 % (0.0-0.4); Lymphocytes Absolute Auto 2.3 X10*3/uL (1.2-4.9); Mean Corpuscular HGB Conc 30.4 g/dl (31.0-35.0); Mean Corpuscular Hemoglobin 28.0 pg (27.0-33.0); Mean Corpuscular Volume 92.1 fL (80.0-98.0); NRBC Abs Auto 0.000 X10*3/uL (0.0-0.012); NRBC Pct Auto 0.0 /100WBC (0.0-0.2); Platelet Count 265 X10*3/uL (160-400); Red Blood Count 4.04 X10*6/uL (4.20-5.50); White Blood Count 7.6 X10*3/uL (4.8-10.8)
[2025-01-26 13:46] LABS: Hemoglobin A1C 160.3116 umol/L; Total Hemoglobin (HGBA1C) 3019.7182 umol/L
[2025-01-26 14:18] LABS: Alanine Aminotransferase 11 U/L (0-31); Albumin Level 4.1 g/dL (3.5-5.0); Alkaline Phosphatase 86 U/L (39-117); Anion Gap 10 (12-20); Aspartate Amino Transferase 21 U/L (5-31); Blood Urea Nitrogen 9 mg/dL (9-16); Calcium 9.0 mg/dL (8.4-10.2); Carbon Dioxide 24 mmol/L (22-29); Chloride 110 mmol/L (96-108); Cholesterol 128 mg/dL (<200); Estimated Glomerular Filt Rate > 60; HDL Cholesterol 51 mg/dL (>40); Potassium 4.0 mmol/L (3.3-5.1); Sodium 140 mmol/L (135-145); Total Protein 6.9 g/dL (6.5-8.0); Triglycerides 102 mg/dL (<150)
[2025-01-26 14:48] LABS: Folate 6.0 ng/mL (> or = 4.0); Vitamin B12 279 pg/mL (200-900)
== END 2025-01-26 10:09 | disposition home or self-care (01) ==
LOC: HO.HMGCLDS 10:08
PROVIDERS: PCP Internal Medicine; Visit Provider Internal Medicine
DX: E11.9 Type 2 diabetes mellitus without complications (principal); D64.9 Anemia, unspecified; E78.00 Pure hypercholesterolemia, unspecified; E55.9 Vitamin D deficiency, unspecified; E53.8 Deficiency of other specified B group vitamins; R30.0 Dysuria
CPT/HCPCS: 36415; 80053; 80061; 81003; 82043; 82306; 82570; 82607; 82746; 83036; 84443; 85025

== ENCOUNTER 2025-01-31 12:49 | Outpatient (AMB) | payer OTHER, SELFPAY ==
[2025-01-31 12:52] VITALS: BP 126/78; PULSE 61; O2SAT 98; BMI 37.1
--- NOTE | 2025-01-31 12:52 | MHC.PC.OV ---
Vital Signs 01/31/25 12:52 Height 5 ft 4 in Weight 216 lb 4 oz BMI 37.1 BP 126/78 Blood Pressure Location Lt brachial Position Sitting Pulse 61 Pulse Source Pulse Oximeter Pulse Oximetry (%) 98 Oxygen Delivery Method Room Air Intake Visit Reasons: 4 months Vulcanized Fiber Unit Operator Required: No Accompanied by: Self / Same As Patient Allergies meclizine Adverse Reaction (Verified 01/31/25 13:19) tachycardia metoclopramide Adverse Reaction (Verified 01/31/25 13:19) tachycardia Medication List - Last Reconciled 01/31/25 by Villa Lr MD acetaminophen 500 mg PO Q6H PRN [ADULT PULL UPS As directed] albuterol sulfate 90 mcg/actuation (Ventolin HFA) 2 puffs inhalation QID PRN alum-mag hydroxide-simeth 400-400-40 mg/5 mL (Mylanta Maximum Strength) 10 mL PO TID PRN amitriptyline 75 mg PO DAILY atorvastatin 20 mg PO BEDTIME 90 days baclofen 20 mg PO BID PRN 30 days blood sugar diagnostic (FreeStyle Lite Strips) TEST BLOOD SUGAR DIRECTED 3 TIMES A DAY budesonide 32 mcg/actuation 2 sprays intranasal DAILY PRN cane As directed cholecalciferol (vitamin D3) 50 mcg PO DAILY 90 days clonazepam 1 mg PO TID diaper,brief,adult,disposable (Depend Easy Fit Undergarments [facility] [place]) As directed dicyclomine 20 mg PO BID erenumab-aooe (Aimovig Autoinjector) 140 mg subcut [id number] esomeprazole magnesium 40 mg PO DAILY [FREESTYLE LITE TEST STRIPS Test blood sugar as directed 3 times a day - E11.9 -- DIABETES] FreeStyle Lite Meter (blood-glucose meter) As directed NS gabapentin 300 mg PO BEDTIME hydroxyzine HCl mg PO 3XD lancets (FreeStyle Lancets) As directed- 3 times a day linaclotide (Linzess) 290 mcg PO QAM liraglutide (Victoza 3-Shamir) 1.2 mg (0.2 mL) subcut DAILY melatonin 6 mg PO BEDTIME metformin 1,000 mg PO BID 90 days methylcellulose (laxative) (Fiber Therapy (methylcellulose)) 500 mg PO BID montelukast 10 mg PO BEDTIME 90 days ondansetron 4 mg sublingual TID pen needle, diabetic (Comfort EZ Pen [place]) As directed daily pioglitazone 45 mg PO DAILY propranolol 60 mg PO BID sennosides (senna) 17.2 mg (2 x 8.6 mg) PO BEDTIME PRN sertraline 50 mg PO DAILY simethicone 180 mg PO TID terconazole 0.8% 1 appful vaginal BEDTIME 3 days topiramate 100 mg PO BID tramadol 50 mg PO TID PRN 30 days triamcinolone acetonide 1 spray intranasal DAILY ubrogepant (Ubrelvy) 100 mg PO DAILY PRN ziprasidone HCl (Geodon) 80 mg PO BID Tobacco use date assessed: 01/31/25 Dental Screening Dental Screen Date: 01/31/25 Did you have a dental visit in the last 12 months?: Yes Did you have a dental problem in the last 6 months where you did not have access to dental care?: No Was dental information given to patient?: Patient has dentist HPI 4 months HPI Details Patient comes in today for her follow up visit States that she feels okay She denies any headaches or dizziness Denies any chest pains, no increased SOB No nausea/vomiting, no abdominal pain No change in bowel habits noted Needs her Victoza Rx refilled - states that she has been having problems refilling her Victoza as her pharmacist keeps telling her that her insurance will only cover the generic version of Victoza (?!) She had her follow up labs done a few days ago - to discuss her results [facility] Medical History Overactive bladder Diarrhea Morbid obesity with BMI of 40.0-44.9, adult Biliary dyskinesia Elevated TSH Obesity (BMI 30-39.9) Depression Anxiety Insomnia Obstructive sleep apnea Vitamin D deficiency 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 myelopathy or radiculopathy Elevated LFTs Allergic rhinitis Asthma Migraine Pure hypercholesterolemia Benign essential hypertension Diabetes mellitus IBS (irritable bowel syndrome) Gastroparesis Surgical History History of surgical removal of skin lesion (07/26/24) Status post epidural steroid injection History of cardiac cath Hx of tubal ligation Hx of colonoscopy (~03/2018) Hx of endoscopy History of surgery of head Hx of hysterectomy (~08/2011) Family History Father Diabetes Hypertension Heart problem Mother Arthritis Diabetes Hypertension Maternal Grandmother Breast cancer, Onset Age: 72 Family/Other Diabetes Hypertension Heart problem Social History Household Members: Spouse Housing: House Are you a primary tire care manager to a significant other at home: No Do you presently have visiting nurse or other home services: No Alcohol intake: current Alcohol intake frequency: former alcohol drinker Comment: NOT INDICATED Patient Tobacco Use Status: Never used Tobacco e-Cigarette/Vaping Use: Never Used Second Hand Smoke Exposure: No Advance Directives Date on File: 03/20/16 service: No Current occupational status: disabled Cognitive needs: No Hearing needs: No Vision needs: Yes Female Reproductive History Menstrual Age of Menarche: 13 Questionnaire PHQ-9 Over the last 2 weeks, how often have you been bothered by any of the following problems? 1. Little interest or pleasure in doing things: several days 2. Feeling down, depressed, or hopeless: not at all 3. Trouble falling or staying asleep, or sleeping too much: not at all 4. Feeling tired or having little energy: several days 5. Poor appetite or overeating: not at all 6. Feeling bad about yourself - or that you are a failure or have let yourself or your family down: not at all 7. Trouble concentrating on things, such as reading the newspaper or watching television: several days 8. Moving or speaking so slowly that other people could have noticed. Or the opposite - being so fidgety or restless that you have been moving around a lot more than usual: several days 9. Thoughts that you would be better off or of hurting yourself in some way: several days Total score: 5 Depression Screening Interpretation: Positive Depression Screening Follow-up: Existing condition and In treatment Depression Screening Done: Yes 86834 - PHQ-9 Billing: Yes Source: Developed by Drs. Raymond Plunkett, Meaghan Art, Keshav Castro and colleagues, with an educational david from [employer]. Thrive Questionnaire Date Thrive assessed: 01/31/25 I am a: Patient What is your living situation today?: I have a steady place to live Within the past 12 months, did the food you bought not last and you didn't have the money to get more?: Often true Within the past 12 months, did you worry whether your food would run out before you got money to buy more?: Often true Do you have trouble paying for medicines?: No Do you have trouble getting transportation to medical appointments?: No Do you have trouble paying your heating and electricity bill?: No Do you have trouble taking care of your child, family member or friend?: No Do you have trouble with day-to-day activities such as bathing, preparing meals, shopping, managing finances, etc.?: No Are you currently unemployed and looking for a job?: No Are you interested in more education?: No Please select the resources that you would like help with: None Currently or been in a relationship where the following occur: I choose not to answer THRIVE Score: 2 AUDIT C Alcohol Use Questionnaire (AUDIT-C) 1. How often do you have a drink containing alcohol?: Never 3. How often do you have six or more drinks on one occasion?: Never Total Score: 0 Score Reviewed/Action Taken: Yes FADUMO-7 AMB Questionnaire FADUMO-7 Date FADUMO - 7 assessed: 01/31/25 Feeling nervous, anxious, or on edge: 0 = Not at all Not being able to stop or control worryin = Not at all Worrying too much about different things: 0 = Not at all Trouble relaxin = Not at all Being so restless that it is hard to sit still: 0 = Not at all Becoming easily annoyed or irritable: 0 = Not at all Feeling afraid as if something awful might happen: 0 = Not at all Total FADUMO-7 score (0-4 normal; 5-9 mild; 10-14 moderate; 15-21 severe): 0 Source: Developed by Drs. Raymond Plunkett, Meaghan Art, Keshav Castro and colleagues, with an educational david from [employer]. Review of Systems Const Denies chills, Reports fatigue, Denies fever(s) and Denies headache(s) ENT Denies dysphagia, Denies dizziness, Denies otalgia, Denies headache(s), Denies neck pain, Denies odynophagia and Denies sore throat Card Denies chest pain, Denies irregular heart rhythm, Denies palpitations and Reports dyspnea on exertion (mild) Resp Denies chest congestion, Denies cough, Reports dyspnea on exertion (mild) and Denies wheezing GI Denies abdominal pain, Denies dysphagia, Denies heartburn, Denies diarrhea, Denies nausea, Denies odynophagia and Denies vomiting Denies hematuria, Denies difficulty voiding, Reports nocturia, Denies dysuria, Reports urinary incontinence and Denies urinary urgency Musc Reports back pain (over the lower back - chronic), Reports arthralgias (on and off) and Denies neck pain Skin/Breast Denies rash Neuro Denies dizziness and Denies headache(s) Endo Reports fatigue and Denies palpitations Aller/Immun Denies wheezing Physical exam (Primary Care) Vital Signs: Last Vital Signs Pulse 61 01/31/25 12:52 BP 126/78 01/31/25 12:52 Pulse Ox 98 01/31/25 12:52 Oxygen Delivery Method Room Air 01/31/25 12:52 BMI result Body Mass Index 37.1 Tobacco/Smoking Status: Tobacco use Status Tobacco use date assessed 01/31/25 01/31/25 12:57 Patient Tobacco Use Status Never used Tobacco 01/31/25 12:57 e-Cigarette/Vaping Use Never Used 01/31/25 12:57 PHQ-9: PHQ-9 Score PHQ-9: Total score 5 01/31/25 15:40 Depression Screening Interpretation: Positive Depression Screening Follow-up: Existing condition and In treatment Thrive Assessment: Date of Thrive Assessment Date Thrive assessed 01/31/25 01/31/25 12:57 Currently or been in a relationship where the following occur: I choose not to answer Const General: no acute distress and alert HENMT Ears: TM's normal bilaterally and EAC's normal Throat: Yes posterior oropharynx normal and Yes tonsils normal (no TP congestion noted) Neck Neck: Yes supple and No lymphadenopathy Thyroid: Thyroid normal Resp Auscultation: clear to auscultation bilaterally, no rales and no wheezes Cardio Rate: regular rate Rhythm: regular rhythm Heart sounds: no murmurs GI Palpation (GI): Soft to palpation and nontender Auscultation: normal bowel sounds General: Yes no CVA tenderness Back/Spine/Pelvis Back: no CVA tenderness Thoracic/Lumbar Spine: thoracic spinal tenderness and lumbar spinal tenderness Skin Rashes: no rashes Extrem General: Yes no clubbing, cyanosis or edema Right upper extremity: wrist Details: tenderness; no swelling Left upper extremity: wrist ((+) tenderness, especially over the dorsal aspect ) Left lower extremity: knee Details: tenderness Location: of the pre-patellar area and of the infrapatellar area; no swelling Results Reviewed Results Reviewed: Laboratory Tests 01/26/25 10:48 WBC 7.6 Hgb 11.3 L Hct 37.2 Plt Count 265 Sodium 140 Potassium 4.0 Creatinine 0.63 Estimated GFR > 60 Fasting Glucose 109 H Hemoglobin A1c % 7.0 H Calcium 9.0 D AST 21 ALT 11 Triglycerides 102 Cholesterol 128 LDL Cholesterol, Calc 57 HDL Cholesterol 51 Vitamin B12 279 25-OH Vitamin D Total 38.2 TSH 3.13 Urine pH 7.0 Ur Specific [place] <= 1.005 Urine Protein Negative Urine Glucose (UA) Negative Urine Blood Negative Urine Nitrite Negative Ur Leukocyte Esterase Negative Coding Level of Care Code Est Pt Level 4 (26810) Diagnoses Pure hypercholesterolemia E78.00 Type 2 diabetes mellitus without complication, without long-term current use of insulin E11.9 Diabetes mellitus complication status: without complication Diabetes mellitus treatment coordinator insulin use: without treatment coordinator use Diabetes mellitus type: type 2 Benign essential hypertension I10 Migraine without status migrainosus, not intractable, unspecified migraine type G43.909 Intractability: not intractable Migraine type: unspecified Status migrainosus presence: without status migrainosus Moderate persistent asthma without complication J45.40 Asthma complication type: uncomplicated Asthma persistence: persistent Asthma severity: moderate Allergic rhinitis, unspecified seasonality, unspecified trigger J30.9 Allergic rhinitis seasonality: unspecified Allergic rhinitis trigger: unspecified Obstructive sleep apnea G47.33 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 myelopathy or radiculopathy M47.816 Chronic idiopathic constipation K59.04 Gastroesophageal reflux disease without esophagitis K21.9 Esophagitis presence: without esophagitis Biliary dyskinesia K82.8 Elevated LFTs R79.89 Vitamin D deficiency E55.9 Elevated vitamin B12 level R74.8 Overactive bladder N32.81 Insomnia, unspecified type G47.00 Insomnia type: unspecified Anxiety F41.9 Episode of recurrent major depressive disorder, unspecified depression episode severity F33.9 Active/Remission status: currently active Depression Type: major depressive disorder Major depression episode severity: unspecified Major depression recurrence: recurrent Obesity (BMI 30-39.9) E66.9 Additional Codes PHQ-9 - 99420 - PHQ-9 Billing: Yes ([id number]) Assessment & Plan Assessment & Plan (1) Pure hypercholesterolemia: Code(s): E78.00 - Pure hypercholesterolemia, unspecified Category: Medical Plan: Results of her labs done a few days ago reviewed and discussed with patient She underwent coronary angiography back on 06/11/2022 after her cardiac stress testing came back abnormal - myocardial perfusion study revealed (+) distal lateral, apical and inferoapical ischemia Cardiac catheterization revealed completely normal coronaries with no atherosclerotic lesions Reinforced low cholesterol diet Continue Atorvastatin 20 mg QD Will recheck her labs and fasting lipids in 4 months for follow-up (2) Diabetes mellitus: Comment: taking Victoza, Metformin & Actos Code(s): E11.9 - Type 2 diabetes mellitus without complications Category: Medical Qualifiers: Diabetes mellitus complication status: without complication Diabetes mellitus treatment coordinator insulin use: without fdc use Diabetes mellitus type: type 2 Qualified Code(s): E11.9 - Type 2 diabetes mellitus without complications Plan: Her HgbA1c was at 7.0% on her labs done a few days ago (was previously at 7.3% a few months ago) - goal is HgbA1c of < 7.0% Reinforced diabetic diet Continue Victoza 18 mg/ 3 mL 0.2 mL (1.2 mg) QD (Rx refilled), Pioglitazone 45 mg QD and Metformin 1000 mg BID Have advised patient that what her pharmacist is telling her does not make any sense because her Victoza Rx has always been sent in as generic substitution allowed but we will send in her Rx again today for good measure (3) Benign essential hypertension: Code(s): I10 - Essential (primary) hypertension Category: Medical Plan: Reinforced low sodium diet - goal is systolic BP of at least 120 to 130 mm or less Patient is reminded to continue monitoring her blood pressure regularly - patient has not needed any Rx for her BP for the past couple of years although she is on Propranolol 80 mg BID for prophylactic Tx of her migraine headaches (4) Migraine: Code(s): G43.909 - Migraine, unspecified, not intractable, without status migrainosus Category: Medical Qualifiers: Intractability: not intractable Migraine type: unspecified Status migrainosus presence: without status migrainosus Qualified Code(s): G43.909 - Migraine, unspecified, not intractable, without status migrainosus Plan: Continue Topiramate 100 mg BID, Propranolol 80 mg BID and Fioricet 50-325 mg 1 tablet every 4-6 hours as needed Continue Ubrelvy 100 mg PRN and Aimovig 140 mg SQ every 6 months Patient also used to receive Botox injection every 3 months from Neurology but states that she is no longer getting the injections at present Follow-up with Neurology (Dr. Lieberman) every 3 months as scheduled (5) Asthma: Comment: SHE CONTINUES TO COMPLAIN OF MINIMAL SHORTNESS OF BREATH ON WALKING, BUT NO WHEEZING. PULMONARY FUNCTION TEST IN 2022 WAS ESSENTIALLY NORMAL. SHE MAY STILL HAVE MILD INTERMITTENT BRONCHIAL ASTHMA. I THINK SHORTNESS OF BREATH ON EXERTION IS RELATED TO HER MORBID OBESITY. Code(s): J45.909 - Unspecified asthma, uncomplicated Category: Medical Qualifiers: Asthma complication type: uncomplicated Asthma persistence: persistent Asthma severity: moderate Qualified Code(s): J45.40 - Moderate persistent asthma, uncomplicated Plan: Controlled Continue QVAR RediHaler 80 mcg 1 puff twice a day and ProAir HFA 2 puffs 4 times a day as needed (6) Allergic rhinitis: Comment: SYMPTOMS OF CHRONIC ALLERGIC RHINITIS SEEM TO BE UNDER CONTROL . Code(s): J30.9 - Allergic rhinitis, unspecified Category: Medical Qualifiers: Allergic rhinitis seasonality: unspecified Allergic rhinitis trigger: unspecified Qualified Code(s): J30.9 - Allergic rhinitis, unspecified Plan: Continue Montelukast 10 mg QD and Rhinocort Aqua 2 sprays to each nostril QD PRN She was on Nasacort nasal spray 1 spray to each nostril QD in the past but she stopped using it a while back as the nasal spray reportedly irritates her sinuses (7) Obstructive sleep apnea: Comment: THIS PATIENT IS KNOWN TO HAVE OBSTRUCTIVE SLEEP APNEA SINCE 2019 HAS BEEN USING CPAP REGULARLY. SHE IS BEING FOLLOWED BY AND MANAGED FOR SLEEP APNEA BY HER NEUROLOGIST. CLAIMS THAT SHE DOES USE THE CPAP EVERY NIGHT, AND SLEEPS WELL. Code(s): G47.33 - Obstructive sleep apnea (adult) (pediatric) Category: Medical Plan: Continue using her CPAP device every night when sleeping Follow up with Sleep Medicine as scheduled (8) 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 myelopathy or radiculopathy: Code(s): M47.816 - Spondylosis without myelopathy or radiculopathy, lumbar region Category: Medical Plan: Reinforced activity and weight-lifting restrictions Repeat lumbar spine x-rays done a couple of years ago showed (+) degenerative changes at L5-S1 and lower lumbar facet arthritis Lumbar spine MRI done on 09/14/2021 revealed a severe disc height loss with mild subchondral endplate edema at L5-S1. The bulging this flattens the ventral thecal sac with encroachment on the subarticular zones and abutment of both exiting L5 nerve roots Continue Tramadol 50 mg TID PRN and Gabapentin 300 mg Q HS Follow up with pain management as scheduled - gets back injections when needed with (+) relief (9) Chronic idiopathic constipation: Code(s): K59.04 - Chronic idiopathic constipation Category: Medical Plan: Reinforced increased oral fluids and dietary fiber Continue Linzess 290 mcg QD, MOM 5 ml Q HS and Fiber Laxative daily Follow up with GI as scheduled for continuing management of her chronic constipation (10) GERD (gastroesophageal reflux disease): Code(s): K21.9 - Gastro-esophageal reflux disease without esophagitis Category: Medical Qualifiers: Esophagitis presence: without esophagitis Qualified Code(s): K21.9 - Gastro-esophageal reflux disease without esophagitis Plan: Dietary restrictions reinforced Continue Esomeprazole 40 mg QD (11) Biliary dyskinesia: Code(s): K82.8 - Other specified diseases of gallbladder Category: Medical Plan: HIDA scan with CCK done in November 2020 revealed poor gallbladder emptying and low gallbladder ejection fraction consistent with impaired gallbladder contractility and suggests chronic cholecystitis She was referred to and seen by surgery a couple of years ago and advised that her symptoms are more suggestive of GERD and recommended no surgery at the time but patient was advised to call if her symptoms get worse (12) Elevated LFTs: Code(s): R79.89 - Other specified abnormal findings of blood chemistry Category: Medical Plan: Improved - was most likely related to her weight (hepatosteatosis) Her LFTs on her recent labs remained normal Will continue to monitor her LFTs regularly (13) Vitamin D deficiency: Code(s): E55.9 - Vitamin D deficiency, unspecified Category: Medical Plan: Continue Vitamin D3 2000 units QD (14) Elevated vitamin B12 level: Code(s): R74.8 - Abnormal levels of other serum enzymes Category: Medical Plan: Corrected Patient was advised last year that her Vitamin B12 level has been elevated significantly for a while now and she was referred to hematology for further evaluation Her work ups were all essentially normal, including flow cytometry She was advised that this was likely caused by enhanced production of haptoglobin related to her liver disease Her B12 level has since normalized and her most recent B12 level last checked a few days ago remained normal Will continue to monitor her B12 level regularly (15) Overactive bladder: Code(s): N32.81 - Overactive bladder Category: Medical Plan: Follow up with urology as scheduled She uses Adult pull ups to help manage her OAB (16) Insomnia: Code(s): G47.00 - Insomnia, unspecified Category: Medical Qualifiers: Insomnia type: unspecified Qualified Code(s): G47.00 - Insomnia, unspecified Plan: Sleep hygiene reinforced Continue Zolpidem 10 mg Q HS PRN (17) Anxiety: Code(s): F41.9 - Anxiety disorder, unspecified Category: Medical Plan: Continue Clonazepam 1 mg TID PRN (18) Depression: Code(s): F32.9 - Major depressive disorder, single episode, unspecified Category: Medical Qualifiers: Active/Remission status: currently active Depression Type: major depressive disorder Major depression episode severity: unspecified Major depression recurrence: recurrent Qualified Code(s): F33.9 - Major depressive disorder, recurrent, unspecified Plan: Continue Geodon 80 mg BID, Sertraline 100 mg once a day and Amitriptyline 75 mg once a day at bedtime Follow-up with Psychiatry as scheduled (19) Obesity (BMI 30-39.9): Code(s): E66.9 - Obesity, unspecified Category: Medical Plan: Reinforced diet/exercise as tolerated /lose weight Plan Follow up in 4 months Orders: Orders Comprehensive [place]. Panel Fast 4 Months E78.00 - Pure hypercholesterolemia, unspecified Lipid Panel 4 Months E78.00 - Pure hypercholesterolemia, unspecified Microalbumin, Random (w Creat) 4 Months E11.9 - Type 2 diabetes mellitus without complications UA CC w/rflx Micro + Cult 4 Months R30.0 - Dysuria Hemoglobin A1c 4 Months E11.9 - Type 2 diabetes mellitus without complications Vitamin B12 and Folate 4 Months E53.8 - Deficiency of other specified B group vitamins Complete Blood Count Auto Diff 4 Months D64.9 - Anemia, unspecified TSH reflex Free T4 4 Months E78.00 - Pure hypercholesterolemia, unspecified Vitamin D 25-OH Total 4 Months E55.9 - Vitamin D deficiency, unspecified Medications: Refilled liraglutide (Victoza 3-Shamir) 1.2 mg (0.2 mL) subcut DAILY 9 mL 6RF
--- OUTSIDE RECORDS SUMMARY | 2025-01-31 13:08 | XMS_ITS | Encounter Summary ---
Author Organization [employer] Address [address] [place] [address] Care Team Providers Care Cloth Edge Singer Name Role Phone Unavailable Primary Care Provider Unavailabl e Encounter Details Date Type Department Care Team (Latest Contact Info) Description 03/18/2019 Abstract [facility] CONVERSIONS Dental, Provider, DDS Social History Tobacco [...]
--- OUTSIDE RECORDS SUMMARY | 2025-01-31 13:08 | XMS_ITS | Clinical Summary ---
Author Organization [facility], Address [address] [place] [address] [place] [address] Phone Care Team Providers Care Account Manager Relief Name Role Phone Villa Lr MD Primary Care Provider +1- [phone] Allergies No known active allergies Medications clonazePAM [...] D BEFORE MEALS DIRECTED. 1 Active Creon 30851-47401 units capsule TOME 1 C PSULA POR [...] Visit [facility], [address] [place] [address] Abdulkadir Osorio MD [address] [address] Health Maintenance Due Date Last Done [...] Hemoglobin A1C 7.4(H) 4.8 - 5.6 % [facility] Comment: Prediabetes: 5.7 - 6.4 Diabetes: >6.4 Glycemic control for adults with diabetes: <7.0 07/05/2024 11:4 4 AM EST 07/05/2024 us Abdulkadir Osorio MD LAB BLOOD ORDERABLES Final Res [facility] [address] [place] [phone] from Last 3 Months or Most Recently Relevant to Health Maintenance Insurance [address] [place] [address] [facility] Healthnet Care Teams Account Manager Relief Relationship Specialty Start Date End Date Villa Lr MD [address] [place] [address] PCP - General 05/04/19
== END 2025-01-31 13:30 | disposition home or self-care (01) ==
LOC: HO.HMCH 12:50
PROVIDERS: PCP Internal Medicine; Visit Provider Internal Medicine
DX: E78.00 Pure hypercholesterolemia, unspecified (principal); E11.9 Type 2 diabetes mellitus without complications; I10 Essential (primary) hypertension; G43.909 Migraine, unspecified, not intractable, without status migrainosus; J45.40 Moderate persistent asthma, uncomplicated; J30.9 Allergic rhinitis, unspecified; G47.33 Obstructive sleep apnea (adult) (pediatric); M47.816 Spondylosis without myelopathy or radiculopathy, lumbar region; K59.04 Chronic idiopathic constipation; K21.9 Gastro-esophageal reflux disease without esophagitis; K82.8 Other specified diseases of gallbladder; R79.89 Other specified abnormal findings of blood chemistry; E55.9 Vitamin D deficiency, unspecified; R74.8 Abnormal levels of other serum enzymes; N32.81 Overactive bladder; G47.00 Insomnia, unspecified; F41.9 Anxiety disorder, unspecified; F33.9 Major depressive disorder, recurrent, unspecified; E66.9 Obesity, unspecified

== ENCOUNTER → 2025-01-31 12:49 | Outpatient (BNVA) | payer OTHER, SELFPAY | PROVIDERS: PCP Internal Medicine; Visit Provider Internal Medicine | DX: E78.00 Pure hypercholesterolemia, unspecified (principal); E11.9 Type 2 diabetes mellitus without complications; I10 Essential (primary) hypertension; G43.909 Migraine, unspecified, not intractable, without status migrainosus; J45.40 Moderate persistent asthma, uncomplicated; J30.9 Allergic rhinitis, unspecified; G47.33 Obstructive sleep apnea (adult) (pediatric); M47.816 Spondylosis without myelopathy or radiculopathy, lumbar region; K59.04 Chronic idiopathic constipation; K21.9 Gastro-esophageal reflux disease without esophagitis; K82.8 Other specified diseases of gallbladder; R79.89 Other specified abnormal findings of blood chemistry; E55.9 Vitamin D deficiency, unspecified; R74.8 Abnormal levels of other serum enzymes; N32.81 Overactive bladder; G47.00 Insomnia, unspecified; F41.9 Anxiety disorder, unspecified; F33.9 Major depressive disorder, recurrent, unspecified; E66.9 Obesity, unspecified; Z79.84 Long term (current) use of oral hypoglycemic drugs; Z79.85 Long-term (current) use of injectable non-insulin antidiabetic drugs; Z79.899 Other long term (current) drug therapy; Z13.31 Encounter for screening for depression; Z13.39 Encounter for screening examination for other mental health and behavioral disorders | CPT/HCPCS: 96127; 99212 ==

== ENCOUNTER 2025-02-16 12:40 | Outpatient (REF) | payer OTHER, SELFPAY ==
--- NOTE | ~2025-02-16 | US_ITS ---
EXAMINATION: US RETROPERITONEAL LIMITED (RENAL ONLY) CLINICAL INFORMATION: Calculus of kidney. COMPARISON: 02/17/2024, 09/17/2023 TECHNIQUE: Real-time imaging of the kidneys. FINDINGS: RIGHT KIDNEY: 12.7 x 4.6 x 6.6 cm (SAG x AP x TRV). The kidney is normal in size, contour, and echogenicity. Renal cortical thickness is normal. No calculi or focal parenchymal lesions. No hydronephrosis. There is mild pelvic fullness, nonspecific. LEFT KIDNEY: 12.6 x 5.4 x 6.0 cm (SAG x AP x TRV). The kidney is normal in size, contour, and echogenicity. Renal cortical thickness is normal. There are no calculi. There is a complex parapelvic cyst measuring 6.3 x 5.7 x 7.2 cm, slightly larger than on the prior examination when it measured 5.8 x 5.6 x 5.5 cm. There are dilated calyces versus parapelvic cysts. This had a similar appearance previously. US/US renal BI IMPRESSION: 1. Left kidney dilated calyces versus peripelvic cysts, most likely parapelvic cysts, similar to the prior examination. A postcontrast CT examination delay imaging may be necessary to distinguish whether this represents hydronephrosis or parapelvic cysts. 2. Dominant left kidney mildly complicated parapelvic cyst, slightly larger than previously, measuring up to 6.3 cm. This could also be further evaluated with a renal protocol CT exam. 3. Normal right kidney. Electronically signed by: Dave Maxwell MD 02/16/2025 01:35 PM EDT
--- OUTSIDE RECORDS SUMMARY | 2025-02-16 13:31 | XMS_ITS | Encounter Summary ---
Author Organization [employer] Address [address] [place] [address] Care Team Providers Care Manager Floor Name Role Phone Unavailable Primary Care Provider Unavailabl e Encounter Details Date Type Department Care Team (Latest Contact Info) Description 03/18/2019 Abstract [facility] CONVERSIONS Dental, Provider, DDS Social History [...]
--- OUTSIDE RECORDS SUMMARY | 2025-02-16 13:31 | XMS_ITS | Clinical Summary ---
Author Organization [facility], Address [address] [place] [address] [place] [address] Phone Care Team Providers Care Cellular Plastics Cutter Name Role Phone Villa Lr MD Primary Care Provider +1- [phone] Allergies No known active allergies Medications clonazePAM [...] D BEFORE MEALS DIRECTED. 1 Active Creon 96507-89118 units capsule TOME 1 C PSULA POR [...] Visit [facility], [address] [place] [address] Abdulkadir Osorio MD [address] [address] Health Maintenance Due Date Last Done [...] Hemoglobin A1C 7.4(H) 4.8 - 5.6 % [facility] Comment: Prediabetes: 5.7 - 6.4 Diabetes: >6.4 Glycemic control for adults with diabetes: <7.0 07/05/2024 11:4 4 AM EST 07/05/2024 us Abdulkadir Osorio MD LAB BLOOD ORDERABLES Final Res ult [facility] [address] [place] [phone] from Last 3 Months or Most Recently Relevant to Health Maintenance Insurance [address] [place] [address] [facility] Healthnet Care Teams Cellular Plastics Cutter Relationship Specialty Start Date End Date Villa Lr MD [address] [place] [address] PCP - General 05/04/19
== END 2025-02-16 12:41 | disposition home or self-care (01) ==
LOC: HO.US 12:40
PROVIDERS: PCP Internal Medicine; Visit Provider Nurse Practitioner Family
DX: N20.0 Calculus of kidney (principal); N28.1 Cyst of kidney, acquired
CPT/HCPCS: 76775

== ENCOUNTER → 2025-02-16 12:42 | Outpatient (BNV) | payer OTHER, SELFPAY | PROVIDERS: PCP Internal Medicine; Visit Provider Radiology Diagnostic Radiology | DX: N28.1 Cyst of kidney, acquired (principal) | CPT/HCPCS: 76775 ==

== ENCOUNTER 2025-02-23 10:15 | Outpatient (AMB) | payer OTHER, SELFPAY ==
[2025-02-23 10:50] VITALS: BP 110/78; PULSE 63; O2SAT 99; BMI 37.6
--- NOTE | 2025-02-23 10:50 | A.OFFVIS_ITS ---
Vital Signs 02/23/25 10:50 Height 5 ft 4 in Weight 219 lb 5.759 oz BMI 37.6 BP 110/78 Blood Pressure Location Lt brachial Position Sitting Pulse 63 Pulse Source Pulse Oximeter Pulse Oximetry (%) 99 Oxygen Delivery Method Room Air Intake Visit Reasons: Dyspnea Intake Note: pt is here for follow up and states she is feeling better but lately asthma has been an issue, wheezing, coughing Carbon Coating Machine Operator Required: Yes Carbon Coating Machine Operator Services: Carbon Coating Machine Operator Present Carbon Coating Machine Operator Name: Tashira Allergies meclizine Adverse Reaction (Verified 02/23/25 11:05) tachycardia metoclopramide Adverse Reaction (Verified 02/23/25 11:05) tachycardia Medication List - Last Reconciled 02/23/25 by Nasreen Bella MD acetaminophen 500 mg PO Q6H PRN [ADULT PULL UPS As directed] albuterol sulfate 90 mcg/actuation (Ventolin HFA) 2 puffs inhalation QID PRN alum-mag hydroxide-simeth 400-400-40 mg/5 mL (Mylanta Maximum Strength) 10 mL PO TID PRN amitriptyline 75 mg PO DAILY atorvastatin 20 mg PO BEDTIME 90 days baclofen 20 mg PO BID PRN 30 days blood sugar diagnostic (FreeStyle Lite Strips) TEST BLOOD SUGAR DIRECTED 3 TIMES A DAY budesonide 32 mcg/actuation 2 sprays intranasal DAILY PRN cane As directed cholecalciferol (vitamin D3) 50 mcg PO DAILY 90 days clonazepam 1 mg PO TID diaper,brief,adult,disposable (Depend Easy Fit Undergarments [facility]) As directed dicyclomine 20 mg PO BID erenumab-aooe (Aimovig Autoinjector) 140 mg subcut [id number] esomeprazole magnesium 40 mg PO DAILY [FREESTYLE LITE TEST STRIPS Test blood sugar as directed 3 times a day - E11.9 -- DIABETES] FreeStyle Lite Meter (blood-glucose meter) As directed NS gabapentin 300 mg PO BEDTIME hydroxyzine HCl mg PO 3XD lancets (FreeStyle Lancets) As directed- 3 times a day linaclotide (Linzess) 290 mcg PO QAM liraglutide (Victoza 3-Shamir) 1.2 mg (0.2 mL) subcut DAILY melatonin 6 mg PO BEDTIME metformin 1,000 mg PO BID 90 days methylcellulose (laxative) (Fiber Therapy (methylcellulose)) 500 mg PO BID montelukast 10 mg PO BEDTIME 90 days ondansetron 4 mg sublingual TID pen needle, diabetic (Comfort EZ Pen [place]) As directed daily pioglitazone 45 mg PO DAILY propranolol 60 mg PO BID sennosides (senna) 17.2 mg (2 x 8.6 mg) PO BEDTIME PRN sertraline 50 mg PO DAILY simethicone 180 mg PO TID terconazole 0.8% 1 appful vaginal BEDTIME 3 days topiramate 100 mg PO BID tramadol 50 mg PO TID PRN 30 days triamcinolone acetonide 1 spray intranasal DAILY ubrogepant (Ubrelvy) 100 mg PO DAILY PRN ziprasidone HCl (Geodon) 80 mg PO BID Do you need a note to return to daycare/school/sports/work: No HPI HPI Dyspnea: Details: THIS 41 YEARS OLD FEMALE GROSSLY OBESE WITH HISTORY OF MILD ALLERGIC RHINITIS AND BRONCHIAL ASTHMA, IS HERE AFTER 6 MONTHS. FOR ROUTINE FOLLOW-UP SHE SAY IS THAT SHE HAS TO USE ALBUTEROL ONCE IN A WHILE, BUT OVERALL HER NASAL SYMPTOMS WELL BREATHING OR REMAINING STABLE. SHE DOES GET SHORT OF BREATH ON EXERTION IT IS MILD AND NOT RELATED TO ANY WHEEZING. THIS IS MOSTLY DUE TO BEING OVERWEIGHT. SHE IS ALSO CASE OF OBSTRUCTIVE SLEEP APNEA AND USES CPAP REGULARLY. NO ISSUES WITH. THE CPAP USAGE HER CPAP MANAGEMENT IS BY HER NEUROLOGIST. WEIGHT REMAINS ALMOST SAME BUT GAINED A FEW LB DURING [place] 6 MONTHS. [facility] Medical History Overactive bladder Diarrhea Morbid obesity with BMI of 40.0-44.9, adult Biliary dyskinesia Elevated TSH Obesity (BMI 30-39.9) Depression Anxiety Insomnia Obstructive sleep apnea Vitamin D deficiency 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 myelopathy or radiculopathy Elevated LFTs Allergic rhinitis Asthma Migraine Pure hypercholesterolemia Benign essential hypertension Diabetes mellitus IBS (irritable bowel syndrome) Gastroparesis Surgical History History of surgical removal of skin lesion (07/26/24) Status post epidural steroid injection History of cardiac cath Hx of tubal ligation Hx of colonoscopy (~03/2018) Hx of endoscopy History of surgery of head Hx of hysterectomy (~08/2011) Family History Father Diabetes Hypertension Heart problem Mother Arthritis Diabetes Hypertension Maternal Grandmother Breast cancer, Onset Age: 72 Family/Other Diabetes Hypertension Heart problem Social History Household Members: Spouse Housing: House Are you a primary home care associate to a significant other at home: No Do you presently have visiting nurse or other home services: No Alcohol intake: current Alcohol intake frequency: former alcohol drinker Comment: NOT INDICATED Patient Tobacco Use Status: Never used Tobacco e-Cigarette/Vaping Use: Never Used Second Hand Smoke Exposure: No Advance Directives Date on File: 03/20/16 service: No Current occupational status: disabled Cognitive needs: No Hearing needs: No Vision needs: Yes Female Reproductive History Menstrual Age of Menarche: 13 Review of Systems Const All systems reviewed & are unremarkable except as noted in HPI and below Reports headache(s) Eyes Reports no additional complaints ENT Reports no additional complaints and Reports headache(s) Card Denies irregular heart rhythm, Denies leg edema and Reports dyspnea on exertion Resp Reports as per HPI and Reports dyspnea on exertion GI Reports no additional complaints Reports no additional complaints Musc Reports back pain, Reports myalgias and Reports arthralgias Skin/Breast Reports system reviewed and no additional complaints, except as documented Neuro Reports headache(s) Psych Reports anxiety and Reports depression Endo Reports other (DIABETES MELLITUS) Sohail/Lymph Reports no additional complaints Aller/Immun Reports no additional complaints Physical Exam Vital Signs: Last Vital Signs Pulse 63 02/23/25 10:50 BP 110/78 02/23/25 10:50 Pulse Ox 99 02/23/25 10:50 Oxygen Delivery Method Room Air 02/23/25 10:50 BMI result Body Mass Index 37.6 PATIENT IS MORBIDLY OBESE WITH A ROUND FACE AND SHORT NECK AND NARROW OROPHARYNX Const General: comfortable, no acute distress, alert and awake Orientation/consciousness: patient oriented x3 HEENT Head: Yes normal to inspection General nose exam: No nasal polyps present and No nasal discharge present Face and sinus: Yes sinuses nontender Mouth: oropharynx normal Throat: Yes posterior oropharynx normal Eyes General: appearance normal, both eyes and all related structures Neck Neck: Yes normal visual inspection, Yes no lymphadenopathy, Yes trachea midline and Yes no JVD Thyroid: Thyroid normal Chest Chest palpation & inspection: normal inspection of the chest, normal palpation of entire chest wall and no tenderness Resp Other: PERCUSSION NOTE IS NOT WELL PERCEPTIBLE BECAUSE OF THE THICK CHEST WALL. BREATH SOUNDS ARE SLIGHTLY DISTANT BUT LUNGS ARE CLEAR WITHOUT ANY WHEEZING OR CREPITATIONS Cardio Palpation: normal PMI Rate: regular rate Rhythm: regular rhythm Heart sounds: no gallops and no murmurs GI Palpation (GI): Soft to palpation, nontender, No hepatosplenomegaly present and no masses Auscultation: normal bowel sounds Back/Spine/Pelvis Thoracic/Lumbar Spine: thoracic and lumbar spine normal to inspection and thoraco-lumbar ROM limited Skin General skin exam: no rashes or lesions noted Neuro General: patient oriented x3 and no focal motor deficits Cranial nerves: Yes CN's II-XII intact bilaterally Extrem General: Yes normal to inspection, Yes no clubbing, cyanosis or edema and Yes no calf tenderness Psych Speech and movement: Normal speech and movement present Assessment & Plan Assessment & Plan (1) Obesity (BMI 30-39.9): Comment: REMAINS OVERWEIGHT, HAS NOT LOST ANY WEIGHT RATHER GAINED A FEW LB. THIS IS MAINLY BECAUSE SHE IS NOT PHYSICALLY ACTIVE AND DOES NOT DO ANY REGULAR EXERCISE. Code(s): E66.9 - Obesity, unspecified Category: Medical Plan: EXPLAINED TO HER IN [place], THROUGH THE TEACHERS AIDE INSTRUCTED TO CUT DOWN THE PORTIONS OF HER FOOD AND TRY TO WALK DAILY. (2) Asthma: Comment: SHE CONTINUES TO COMPLAIN OF MINIMAL SHORTNESS OF BREATH ON WALKING, BUT NO WHEEZING. PULMONARY FUNCTION TEST IN 2022 WAS ESSENTIALLY NORMAL. SHE MAY STILL HAVE MILD INTERMITTENT BRONCHIAL ASTHMA. I THINK SHORTNESS OF BREATH ON EXERTION IS RELATED TO HER MORBID OBESITY. Code(s): J45.909 - Unspecified asthma, uncomplicated Category: Medical Qualifiers: Asthma severity: moderate Asthma persistence: persistent Asthma complication type: uncomplicated Qualified Code(s): J45.40 - Moderate persistent asthma, uncomplicated Plan: OK TO USE ALBUTEROL HFA 2 PUFFS Q 6 HOURS P.R.N. (3) Allergic rhinitis: Comment: SYMPTOMS OF CHRONIC ALLERGIC RHINITIS SEEM TO BE UNDER CONTROL . Code(s): J30.9 - Allergic rhinitis, unspecified Category: Medical Qualifiers: Allergic rhinitis trigger: unspecified Allergic rhinitis seasonality: unspecified Qualified Code(s): J30.9 - Allergic rhinitis, unspecified Plan: USE BUDESONIDE 32 MCG PER ACTUATION 2 SPRAYS IN EACH NOSTRIL DAILY (4) Obstructive sleep apnea: Comment: THIS PATIENT IS KNOWN TO HAVE OBSTRUCTIVE SLEEP APNEA SINCE 2019 HAS BEEN USING CPAP REGULARLY. SHE IS BEING FOLLOWED BY AND MANAGED FOR SLEEP APNEA BY HER NEUROLOGIST. CLAIMS THAT SHE DOES USE THE CPAP EVERY NIGHT, AND SLEEPS WELL. Code(s): G47.33 - Obstructive sleep apnea (adult) (pediatric) Category: Medical Plan: ADVISED TO KEEP ON USING CPAP REGULARLY. ALSO ENCOURAGED TO LOSE MORE WEIGHT. Coding Level of Care Code Est Pt Level 3 (11823) Diagnoses Obesity (BMI 30-39.9) E66.9 Moderate persistent asthma without complication J45.40 Asthma severity: moderate Asthma persistence: persistent Asthma complication type: uncomplicated Allergic rhinitis, unspecified seasonality, unspecified trigger J30.9 Allergic rhinitis trigger: unspecified Allergic rhinitis seasonality: unspecified Obstructive sleep apnea G47.33
--- OUTSIDE RECORDS SUMMARY | 2025-02-23 11:04 | XMS_ITS | Encounter Summary ---
Author Organization [facility], Address [address] [place] [address] Phone Care Team Providers Care Pharmacy Grad Intern Name Role Phone Villa Lr MD Primary Care Provider +1- [phone] Encounter Details Date Type Department Care Team (Late st Contact Info) Description 06/16/2023 Documentation Only [facility], [address] [place] [address] Abdulkadir Osorio MD [address] [place] [address] [place] [address] Social History Tobacco Use Types [...] Visit [facility], [address] [place] [address] Abdulkadir Osorio MD [address] [place] [address] documented as of this encounter Visit Diagnoses Not on filedocumented in this encounter Care Teams Pharmacy Grad Intern Relationship Specialty Start Date End Date Villa Lr MD [address] [place] [address] PCP - General 05/04/19 documented as of this encounter
--- OUTSIDE RECORDS SUMMARY | 2025-02-23 11:04 | XMS_ITS | Encounter Summary ---
Author Organization [employer] Address [address] [place] [address] Care Team Providers Care Marketing Specialist Name Role Phone Unavailable Primary Care Provider Unavailabl e Encounter Details Date Type Department Care Team (Latest Contact Info) Description 03/18/2019 Abstract [facility] CONVERSIONS Dental, Provider, DDS Social History Tobacco [...]
--- OUTSIDE RECORDS SUMMARY | 2025-02-23 11:04 | XMS_ITS | Clinical Summary ---
Author Organization [facility], Address [address] [place] [address] [place] [address] Phone Care Team Providers Care Dispatcher Clerk Name Role Phone Villa Lr MD Primary Care Provider +1- [phone] Allergies No known active allergies Medications clonazePAM [...] D BEFORE MEALS DIRECTED. 1 Active Creon 05295-09788 units capsule TOME 1 C PSULA POR [...] Visit [facility], [address] [place] [address] Abdulkadir Osorio MD [address] [place] [address] Health Maintenance Due Date Last Done [...] Hemoglobin A1C 7.4(H) 4.8 - 5.6 % [facility] Comment: Prediabetes: 5.7 - 6.4 Diabetes: >6.4 Glycemic control for adults with diabetes: <7.0 07/05/2024 11:4 4 AM EST 07/05/2024 us Abdulkadir Osorio MD LAB BLOOD ORDERABLES Final Res ult [facility] [address] [place] [phone] from Last 3 Months or Most Recently Relevant to Health Maintenance Insurance [address] [place] [address] [facility] Healthnet Care Teams Dispatcher Clerk Relationship Specialty Start Date End Date Villa Lr MD [address] [place] [address] PCP - General 05/04/19
--- OUTSIDE RECORDS SUMMARY | 2025-02-23 11:04 | XMS_ITS | Encounter Summary ---
Author Organization [facility], Address [address] [place] [address] Phone Care Team Providers Care Sales Operations Director Name Role Phone Villa Lr MD Primary Care Provider +1- [phone] Encounter Details Date Type Department Care Team (Late st Contact Info) Description 06/10/2022 Documentation Only [facility], [address] [place] [place] [address] Abdulkadir Osorio MD [address] [place] [address] [place] [address] Social History Tobacco Use Types [...] Visit [facility], [address] [place] [address] Abdulkadir Osorio MD [address] [place] [address] documented as of this encounter Visit Diagnoses Not on filedocumented in this encounter Care Teams Sales Operations Director Relationship Specialty Start Date End Date Villa Lr MD [address] [place] [address] PCP - General 05/04/19 documented as of this encounter
--- OUTSIDE RECORDS SUMMARY | 2025-02-23 11:04 | XMS_ITS | Clinical Summary ---
Author Organization [employer] Address [address] [place] [address] Care Team Providers Care International Account Representative Name Role Phone Unavailable Primary Care Provider [...] 1976 FIT 1976 FOBT 1976 Sigmoidoscopy 1976 Disability Screening 1976 Alcohol/Substance Use Screening 1988 Tobacco Screening 1988 Family Planning (PISQ) 12/14/1991 DTaP/Tdap/Td Vaccines (1 - Tdap) 12/14/1995 Hepatitis B Vaccines (1 of 3 - 19+ 3-dose series) 12/14/1995 Pap Smear 1997 Cervical Cancer Screening 2006 HPV/Cotest 2006 Mammogram 2016 COVID-19 Vaccine ( - 2023-2 5 season) 2024 Influenza Vaccine (#1) 2025 Zoster Vaccines (1 of 2) 2026 RSV [...] patient's age to complete this topic Meningococcal B Vaccine Aged Out No l onger eligible based on patient's age to complete this topic Meningococcal Vaccine Aged Out No chuck ladonna eligible based on patient's age to complete this topic Pneumococcal Vaccine: Pediat rics (0 to 5 Years) and At-Risk Patients (6 to 49) Years Aged Out No longer eligible b ased on patient's age to complete this topic RSV under 20 months Aged Out No longe r eligible based on patient's age to complete this topic Rotavirus Vaccines Aged Out No longer eligible based on patient's age to complete this topic
--- OUTSIDE RECORDS SUMMARY | 2025-02-23 11:04 | XMS_ITS | Encounter Summary ---
Author Organization [employer] Address [address] 7[address] [place] [address] Care Team Providers Care Carpet Winder Name Role Phone Unavailable Primary Care Provider Unavailabl e Encounter Details Date Type Department Care Team (Latest Contact Info) Description 05/17/2021 Abstract [facility] CONVERSIONS Dental, Provider, DDS Social History [...]
== END 2025-02-23 11:03 | disposition home or self-care (01) ==
LOC: HO.HPS 10:15
PROVIDERS: PCP Internal Medicine; Visit Provider Internal Medicine
DX: E66.9 Obesity, unspecified (principal); J45.40 Moderate persistent asthma, uncomplicated; J30.9 Allergic rhinitis, unspecified; G47.33 Obstructive sleep apnea (adult) (pediatric)
CPT/HCPCS: 99213

== ENCOUNTER → 2025-02-23 10:15 | Outpatient (BNVA) | payer OTHER, SELFPAY | PROVIDERS: PCP Internal Medicine; Visit Provider Internal Medicine | DX: J45.40 Moderate persistent asthma, uncomplicated (principal); J30.9 Allergic rhinitis, unspecified; G47.33 Obstructive sleep apnea (adult) (pediatric); E66.01 Morbid (severe) obesity due to excess calories; Z68.37 Body mass index [BMI] 37.0-37.9, adult; Z99.89 Dependence on other enabling machines and devices | CPT/HCPCS: 99212 ==

== ENCOUNTER 2025-02-24 10:02 | Outpatient (AMB) | payer OTHER, SELFPAY ==
--- NOTE | 2025-02-24 10:20 | A.OFFVIS_ITS ---
Intake Visit Reasons: 1y/US Intake Note: Patient is present for 1Y/US Urology Medication:NONE Antibiotic Allergy:NONE Blood Thinner:NONE Apron Worker Required: No Apron Worker Services: Apron Worker Present Apron Worker Name: [email or web address] [id number] Allergies meclizine Adverse Reaction (Verified 02/24/25 10:47) tachycardia metoclopramide Adverse Reaction (Verified 02/24/25 10:47) tachycardia Medication List - Last Reconciled 02/24/25 by MATEUSZ Balderas [ADULT PULL UPS As directed] albuterol sulfate 90 mcg/actuation (Ventolin HFA) 2 puffs inhalation QID PRN alum-mag hydroxide-simeth 400-400-40 mg/5 mL (Mylanta Maximum Strength) 10 mL PO TID PRN atorvastatin 20 mg PO BEDTIME 90 days baclofen 20 mg PO BID PRN 30 days blood sugar diagnostic (FreeStyle Lite Strips) TEST BLOOD SUGAR DIRECTED 3 TIMES A DAY budesonide 32 mcg/actuation 2 sprays intranasal DAILY PRN cane As directed cholecalciferol (vitamin D3) 50 mcg PO DAILY 90 days clonazepam 1 mg PO TID diaper,brief,adult,disposable (Depend Easy Fit Undergarments misc) As directed dicyclomine 20 mg PO BID erenumab-aooe (Aimovig Autoinjector) 140 mg subcut [id number] esomeprazole magnesium 40 mg PO DAILY [FREESTYLE LITE TEST STRIPS Test blood sugar as directed 3 times a day - E11.9 -- DIABETES] FreeStyle Lite Meter (blood-glucose meter) As directed NS gabapentin 300 mg PO BEDTIME hydroxyzine HCl mg PO 3XD lancets (FreeStyle Lancets) As directed- 3 times a day linaclotide (Linzess) 290 mcg PO QAM liraglutide (Victoza 3-Shamir) 1.2 mg (0.2 mL) subcut DAILY melatonin 6 mg PO BEDTIME metformin 1,000 mg PO BID 90 days montelukast 10 mg PO BEDTIME 90 days ondansetron 4 mg sublingual TID oxybutynin chloride ER 10 mg PO DAILY 30 days pen needle, diabetic (Comfort EZ Pen [place]) As directed daily pioglitazone 45 mg PO DAILY propranolol 60 mg PO BID sennosides (senna) 17.2 mg (2 x 8.6 mg) PO BEDTIME PRN sertraline 50 mg PO DAILY simethicone 180 mg PO TID terconazole 0.8% 1 appful vaginal BEDTIME 3 days topiramate 100 mg PO BID tramadol 50 mg PO TID PRN 30 days triamcinolone acetonide 1 spray intranasal DAILY ubrogepant (Ubrelvy) 100 mg PO DAILY PRN ziprasidone HCl (Geodon) 80 mg PO BID HPI Comments Details: Ute is a very pleasant 49-year-old Andorran-speaking female patient of Dr. Lr who was accompanied by her family member at today's visit. She has a past medical history of allergic rhinitis, anxiety, asthma, hypertension, depression, diabetes mellitus, gastroparesis, IBS, insomnia, migraines, obesity, obstructive sleep apnea, hypercholesteremia, spondylosis of lumbar region without myelopathy or radiculopathy and vitamin-D deficiency. She presents to the office today for follow-up of her complex left renal cyst. In discussion with the patient today she reports to be doing and feeling well. Recent renal imaging results reviewed with the patient today 02/21 left kidney dilated calyces versus peripelvic cysts, most likely peripelvic cysts, similar to the prior examination. Dominant left kidney mildly complicated peripelvic cysts, slightly larger than previous measuring up to 6.3 cm. This could also be further evaluated with renal mass protocol per radiology report. Normal right kidney. She does report noting over the last 6 months she has been having mixed urinary incontinence and has since been utilizing 4-5 Emely pads per day. In review of patient's chart it appears A1c 7/5 7.0. We did discussed potential causes of mixed urinary incontinence as well as obtaining further imaging for further assessment evaluation. She is agreeable. Patient with previous MRI imaging in 2018 as well as 2020 which did not demonstrate any solid component nodularity or enhancement. Discussed at length potential causes for renal cysts. Discussed continuing with interval surveillance imaging monitoring. Patient otherwise denies any bothersome urinary issues or concerns at this time. In office urinalysis results reviewed with the patient today. She denies nocturia, hematuria, dysuria, foul smelling urine, changes to urinary stream, flank pain, fever, and or chills. All questions were answered. She otherwise offers no other issues or concerns at this time. [facility] Medical History Overactive bladder Diarrhea Morbid obesity with BMI of 40.0-44.9, adult Biliary dyskinesia Elevated TSH Obesity (BMI 30-39.9) Depression Anxiety Insomnia Obstructive sleep apnea Vitamin D deficiency 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 myelopathy or radiculopathy Elevated LFTs Allergic rhinitis Asthma Migraine Pure hypercholesterolemia Benign essential hypertension Diabetes mellitus IBS (irritable bowel syndrome) Gastroparesis Surgical History History of surgical removal of skin lesion (07/26/24) Status post epidural steroid injection History of cardiac cath Hx of tubal ligation Hx of colonoscopy (~03/2018) Hx of endoscopy History of surgery of head Hx of hysterectomy (~08/2011) Family History Father Diabetes Hypertension Heart problem Mother Arthritis Diabetes Hypertension Maternal Grandmother Breast cancer, Onset Age: 72 Family/Other Diabetes Hypertension Heart problem Social History Household Members: Spouse Housing: House Are you a primary career representative to a significant other at home: No Do you presently have visiting nurse or other home services: No Alcohol intake: current Alcohol intake frequency: former alcohol drinker Comment: NOT INDICATED Patient Tobacco Use Status: Never used Tobacco e-Cigarette/Vaping Use: Never Used Second Hand Smoke Exposure: No Advance Directives Date on File: 03/20/16 service: No Current occupational status: disabled Cognitive needs: No Hearing needs: No Vision needs: Yes Female Reproductive History Menstrual Age of Menarche: 13 Review of Systems Const Reports as per HPI Eyes Reports no additional complaints ENT Reports no additional complaints Card Reports as per HPI Resp Reports as per HPI GI Reports as per HPI Reports as per HPI Musc Reports as per HPI Psych Reports as per HPI Endo Reports as per HPI Physical Exam Const General: cooperative, comfortable, no acute distress, well developed, alert and awake Nutritional Appearance: overweight Orientation/consciousness: patient oriented x3 Limitations: language barrier HEENT Head: Yes normal to inspection, Yes normocephalic and Yes atraumatic Ears: hearing grossly normal bilaterally Eyes General: appearance normal, both eyes and all related structures Neck Neck: Yes normal visual inspection and Yes trachea midline Chest Chest palpation & inspection: normal inspection of the chest Resp Effort & Inspection: normal respiratory effort and able to speak in complete sentences Cardio Rate: regular rate GI Inspection: Yes normal to inspection General: Yes no CVA tenderness Back/Spine/Pelvis Back: no CVA tenderness Skin General skin exam: no rashes or lesions noted Neuro General: patient oriented x3 Extrem General: Yes normal to inspection Psych Appearance: grossly normal and well kempt Mental Status: mental status grossly normal Speech and movement: Normal speech and movement present and Clear speech present Affect: normal affect Attitude: cooperative Thought process: Normal thought process present Thought content: Normal thought content present Insight: Fair insight present (Psych) Judgement: Fair judgement present (Psych) Results AMB Urinalysis, Automated UA Leukoctes 0 Lexi/uL Last Edit by Sterling Garcia [facility] on 02/24/25 10:36 UA Nitrite Negative Last Edit by Sterling Garcia [facility] on 02/24/25 10:36 UA Urobilinogen 0.2 mg/dL Last Edit by Sterling Garcia [facility] on 02/24/25 10:3 6 UA Protein 0 mg/dL Last Edit by Sterling Garcia [facility] on 02/24/25 10:36 UA pH 6.0 Last Edit by Sterling Garcia [facility] on 02/24/25 10:36 UA Blood 0 Keo/uL Last Edit by Sterling Garcia [facility] on 02/24/25 10:36 UA Specific [place] 1.000 Last Edit by Sterling Garcia [facility] on 02/24/25 10: 36 UA Ketone Negative Last Edit by Sterling Garcia [facility] on 02/24/25 10:36 UA Bilirubin 0 mg/dL Last Edit by Sterling Garcia [facility] on 02/24/25 10:36 UA Glucose 0 mg/dL Last Edit by Sterling Garcia [facility] on 02/24/25 10:36 Results Reviewed Results Reviewed: Laboratory Last Values Urine pH (Auto) 6.0 02/24/25 10:35 Specific [place] (Auto) 1.000 02/24/25 10:35 Urine Protein (Auto) 0 mg/dL 02/24/25 10:35 Glucose (UA)(Auto) 0 mg/dL 02/24/25 10:35 Urine Ketones (Auto) Negative 02/24/25 10:35 Urine Blood (Auto) 0 Keo/uL 02/24/25 10:35 Urine Nitrite (Auto) Negative 02/24/25 10:35 Urine Bilirubin (Auto) 0 mg/dL 02/24/25 10:35 Urine Urobilinogen (Auto) 0.2 mg/dL 02/24/25 10:35 Leukocyte Esterase (Auto) 0 Lexi/uL 02/24/25 10:35 Date of Service: 02/16/25 Procedure(s): US renal BI FINDINGS: RIGHT KIDNEY: 12.7 x 4.6 x 6.6 cm (SAG x AP x TRV). The kidney is normal in size, contour, and echogenicity. Renal cortical thickness is normal. No calculi or focal parenchymal lesions. No hydronephrosis. There is mild pelvic fullness, nonspecific. LEFT KIDNEY: 12.6 x 5.4 x 6.0 cm (SAG x AP x TRV). The kidney is normal in size, contour, and echogenicity. Renal cortical thickness is normal. There are no calculi. There is a complex parapelvic cyst measuring 6.3 x 5.7 x 7.2 cm, slightly larger than on the prior examination when it measured 5.8 x 5.6 x 5.5 cm. There are dilated calyces versus parapelvic cysts. This had a similar appearance previously. IMPRESSION: 1. Left kidney dilated calyces versus peripelvic cysts, most likely parapelvic cysts, similar to the prior examination. A postcontrast CT examination delay imaging may be necessary to distinguish whether this represents hydronephrosis or parapelvic cysts. 2. Dominant left kidney mildly complicated parapelvic cyst, slightly larger than previously, measuring up to 6.3 cm. This could also be further evaluated with a renal protocol CT exam. 3. Normal right kidney. Assessment & Plan Assessment & Plan (1) Renal cyst: Comment: Left renal cyst 4.5 cm Code(s): N28.1 - Cyst of kidney, acquired Category: Medical (2) Overactive bladder: Code(s): N32.81 - Overactive bladder Category: Medical (3) Mixed stress and urge urinary incontinence: Code(s): N39.46 - Mixed incontinence Category: Medical Plan In office urinalysis results reviewed with the patient today; as noted above. Recent renal imaging results with the patient today; as noted above. We did discussed at length potential causes of mixed urinary incontinence as well as further treatment options and risks and benefits of these treatment options. All questions were answered. Will continue with surveillance monitoring. Start oxybutynin as discussed and prescribed. Will obtain CT urogram. BUN and creatinine ordered for imaging. We did discussed importance of management and diabetes for overall health and well-being and in relation to urological diagnosis's Follow-up in 1-3 months with imaging, labs, and PVR; or sooner with any issues, concerns, and or questions. Orders: Orders AMB Urinalysis Automated Today Z13.9 - Encounter for screening, unspecified Blood Urea Nitrogen Today R39.15 - Urgency of urination Creatinine Today R39.15 - Urgency of urination CT abdomen pelvis wo/w IV con Today N28.1 - Cyst of kidney, acquired Medications: New oxybutynin chloride ER 10 mg PO DAILY 30 tabs 3RF 30 days N32.81 - Overactive bladder Patient Instructions: The patient had an opportunity to ask questions regarding the treatment plan. All questions were answered. Physical exam, labs, and imaging were discussed and reviewed in detail. As well as risks, benefits, and discussion of treatment choices. No major barriers to understanding were identified. The patient expressed understanding and agreement with the above treatment plan. The patient was made aware they should contact our office by phone for worsening of their current condition, the appearance of new symptoms, or with any questions or concerns. Compliance is encouraged with any medications and follow up testing that is ordered. It is a privilege to be allowed the opportunity to participate in? your urological care.? Again, if you have any questions or concerns If you have any questions or concerns please do not hesitate to contact me. The office is [phone]. This note is constructed using voice recognition software. While every effort has been made to ensure accuracy director employee communications errors may have been included. Yours sincerely, MATEUSZ Balderas Coding Level of Care Code Est Pt Level 4 (58622) Complex EM visit Add On G2211 Diagnoses Renal cyst N28.1 Overactive bladder N32.81 Mixed stress and urge urinary incontinence N39.46
--- OUTSIDE RECORDS SUMMARY | 2025-02-24 11:15 | XMS_ITS | Clinical Summary ---
Author Organization [employer] Address [address] [place] [address] Care Team Providers Care V Belt Builder Name Role Phone Unavailable Primary Care Provider [...]
--- OUTSIDE RECORDS SUMMARY | 2025-02-24 11:15 | XMS_ITS | Encounter Summary ---
Author Organization [facility], Address [address] [place] [address] Phone Care Team Providers Care Report Checker Name Role Phone Villa Lr MD Primary Care Provider +1- [phone] Encounter Details Date Type Department Care Team (Late st Contact Info) Description 06/16/2023 Documentation Only [facility], [address] [place] [address] Abdulkadir Osorio MD [address] [place] [address] [place] [address] Social History Tobacco Use Types [...] Visit [facility], [address] [place] [address] Abdulkadir Osorio MD [address] [place] [address] documented as of this encounter Visit Diagnoses Not on filedocumented in this encounter Care Teams Report Checker Relationship Specialty Start Date End Date Villa Lr MD [address] [place] [address] PCP - General 05/04/19 documented as of this encounter
--- OUTSIDE RECORDS SUMMARY | 2025-02-24 11:15 | XMS_ITS | Clinical Summary ---
Author Organization [facility], Address [address] [place] [address] [place] [address] Phone Care Team Providers Care Selenium Plant Operator Name Role Phone Villa Lr MD Primary Care Provider +1- [phone] Allergies No known active allergies Medications clonazePAM [...] D BEFORE MEALS DIRECTED. 1 Active Creon 62353-59895 units capsule TOME 1 C PSULA POR [...] Visit [facility], [address] [address] Abdulkadir Osorio MD [address] [place] [address] Health Maintenance Due Date Last Done [...] Hemoglobin A1C 7.4(H) 4.8 - 5.6 % [facility] Comment: Prediabetes: 5.7 - 6.4 Diabetes: >6.4 Glycemic control for adults with diabetes: <7.0 07/05/2024 11:4 4 AM EST 07/05/2024 us Abdulkadir Osorio MD LAB BLOOD ORDERABLES [facility] [address] [place] [phone] from Last 3 Months or Most Recently Relevant to Health Maintenance Insurance [address] [place] [address] [facility] [employer] Care Teams Selenium Plant Operator Relationship Specialty Start Date End Date Villa Lr MD [address] [place] [address] PCP - General 05/04/19
--- OUTSIDE RECORDS SUMMARY | 2025-02-24 11:15 | XMS_ITS | Encounter Summary ---
Author Organization [employer] Address [address] [place] [address] Care Team Providers Care Compliance Professional Name Role Phone Unavailable Primary Care Provider Unavailabl e Encounter Details Date Type Department Care Team (Latest Contact Info) Description 05/17/2021 Abstract [facility] CONVERSIONS Dental, Provider, DDS Social [...]
--- OUTSIDE RECORDS SUMMARY | 2025-02-24 11:15 | XMS_ITS | Encounter Summary ---
Author Organization [facility] [place], Address [address] [place] [address] Phone Care Team Providers Care Joggle Press Operator Name Role Phone Villa Lr MD Primary Care Provider +1- [phone] Encounter Details Date Type Department Care Team (Late st Contact Info) Description 06/10/2022 Documentation Only [facility], [address] [place] [address] Abdukladir Osorio MD [address] [place] [address] [place] [address] Social History Tobacco Use Types [...] Visit [facility], [address] [place] [address] Abdulkadir Osorio MD [address] [place] [address] documented as of this encounter Visit Diagnoses Not on filedocumented in this encounter Care Teams Joggle Press Operator Relationship Specialty Start Date End Date Villa Lr MD [address] [place] [address] PCP - General 05/04/19 documented as of this encounter
--- OUTSIDE RECORDS SUMMARY | 2025-02-24 11:15 | XMS_ITS | Encounter Summary ---
Author Organization [employer] Address [address] [place] [address] Care Team Providers Care Stores Clerk Name Role Phone Unavailable Primary Care Provider Unavailabl e Encounter Details Date Type Department Care Team (Latest Contact Info) Description 03/18/2019 Abstract [facility] CONVERSIONS Dental, Provider, DDS Social [...]
== END 2025-02-24 10:53 | disposition home or self-care (01) ==
LOC: HO.HUSH 10:03
PROVIDERS: PCP Internal Medicine; Visit Provider Nurse Practitioner Family
DX: N28.1 Cyst of kidney, acquired (principal); N32.81 Overactive bladder; N39.46 Mixed incontinence; Z13.9 Encounter for screening, unspecified
CPT/HCPCS: 99214

== ENCOUNTER → 2025-02-24 10:02 | Outpatient (BNVA) | payer OTHER, SELFPAY | PROVIDERS: PCP Internal Medicine; Visit Provider Nurse Practitioner Family | DX: N28.1 Cyst of kidney, acquired (principal); N32.81 Overactive bladder; N39.46 Mixed incontinence | CPT/HCPCS: 81003; 99212 ==

== ENCOUNTER 2025-05-12 09:02 | Outpatient (REF) | payer OTHER, SELFPAY ==
--- NOTE | ~2025-05-12 | CT_ITS ---
CLINICAL HISTORY: N28.1 - Cyst of kidney, acquired Exam: Pre and post-contrast CT abdomen and pelvis with multiplanar reformats. Comparison: Renal ultrasound dated 02/16/2025. Findings: CT abdomen: Lung bases are clear. Precontrast imaging reveals punctate nonobstructing left renal lower pole calculus (3; 71). Liver reveals a tiny subcentimeter segment 2 hypodensity (5; 35), too small to characterize although likely tiny cyst. No other focal hepatic lesions or ductal dilatation. Gallbladder reveals cholelithiasis, without CT evidence of cholecystitis. Spleen appears unremarkable. Pancreas and adrenal glands appear unremarkable. Left kidney reveals a mid to upper pole cyst measuring 6.8 x 5.5 cm oblique transverse and AP dimension (5; 59), by 5.9 cm craniocaudad dimension (6; 53). There appears to be very thin partially calcified septations (3; 52-54 and 8; 217-230, Bosniak category 2). Kidneys otherwise unremarkable. No free intraperitoneal fluid or retroperitoneal masses or adenopathy. Abdominal aorta is normal caliber. Bowel loops reveal no abnormal wall thickening or distention. The appendix is unremarkable. No significant diverticular disease. CT pelvis: Uterus and adnexal structures appear unremarkable. Urinary bladder is free of gross filling defects. No pelvic masses, fluid or adenopathy. Osseous structures reveal no destructive osseous lesions. Impression: 1. Minimally complicated left renal cyst measuring up to 6.8 cm (Bosniak category 2). 2. Punctate nonobstructing left renal calculus. This document has been electronically signed by: Remington Larios MD on 05/12/2025 14:25:20
--- OUTSIDE RECORDS SUMMARY | 2025-05-12 09:49 | XMS_ITS | Encounter Summary ---
Author Organization [employer] Address [address] [place] [address] Care Team Providers Care Credit Administration Officer Name Role Phone Unavailable Primary Care Provider Unavailabl e Encounter Details Date Type Department Care Team (Latest Contact Info) Description 05/17/2021 Abstract [facility] CONVERSIONS Dental, Provider, DDS Social History [...]
--- OUTSIDE RECORDS SUMMARY | 2025-05-12 09:49 | XMS_ITS | Encounter Summary ---
Author Organization [employer] Address [address] [place] [address] Care Team Providers Care Md Physician Dermatologist Name Role Phone Unavailable Primary Care Provider Unavailabl e Encounter Details Date Type Department Care Team (Latest Contact Info) Description 03/18/2019 Abstract [facility] CONVERSIONS Dental, Provider, DDS Social History Tobacco [...]
--- OUTSIDE RECORDS SUMMARY | 2025-05-12 09:49 | XMS_ITS | Clinical Summary ---
Author Organization [employer] Address [address] [place] [address] Care Team Providers Care Admissions Gate Attendant Name Role Phone Unavailable Primary Care Provider [...] COVID-19 Vaccine ( - 2023-2 5 season) 2025 Influenza Vaccine (#1) 2025 Zoster Vaccines (1 [...]
--- OUTSIDE RECORDS SUMMARY | 2025-05-12 09:49 | XMS_ITS | Clinical Summary ---
Author Organization [facility], Address [address] [place] [address] [place] [address] Phone Care Team Providers Care Custom Designer Name Role Phone Villa Lr MD Primary Care Provider +1- [phone] Allergies No known active allergies Medications clonazePAM [...] D BEFORE MEALS DIRECTED. 1 Active Creon 77209-93319 units capsule TOME 1 C PSULA POR [...] Visit [facility], [address] [place] [address] Abdulkadir Osorio MD [address] [place] [address] Health Maintenance Due Date Last Done [...] Hemoglobin A1C 7.4(H) 4.8 - 5.6 % [facility] Comment: Prediabetes: 5.7 - 6.4 Diabetes: >6.4 Glycemic control for adults with diabetes: <7.0 07/05/2024 11:4 4 AM EST 07/05/2024 us Abdulkadir Osorio MD LAB BLOOD ORDERABLES Final Res [facility] [address] [place] [phone] from Last 3 Months or Most Recently Relevant to Health Maintenance Insurance [address] [place] [address] [facility] [employer] Care Teams Custom Designer Relationship Specialty Start Date End Date Villa Lr MD [address] [place] [address] PCP - General 05/04/19
--- OUTSIDE RECORDS SUMMARY | 2025-05-12 09:49 | XMS_ITS | Encounter Summary ---
Author Organization [facility] [place], Address [address] [place] [address] Phone Care Team Providers Care Wet Inspector Optical Glass Name Role Phone Villa Lr MD Primary Care Provider +1- [phone] Encounter Details Date Type Department Care Team (Late st Contact Info) Description 06/10/2022 Documentation Only [facility], [address] [place] [address] Abdulkadir Osorio MD [address] [place] [address] [place] [address] Social History Tobacco Use Types [...] Visit [facility], [address] [place] [address] Abdulkadir Osorio MD [address] [place] [address] documented as of this encounter Visit Diagnoses Not on filedocumented in this encounter Care Teams Wet Inspector Optical Glass Relationship Specialty Start Date End Date Villa Lr MD [address] [place] [address] PCP - General 05/04/19 documented as of this encounter
--- OUTSIDE RECORDS SUMMARY | 2025-05-12 09:49 | XMS_ITS | Encounter Summary ---
Author Organization [facility] [place], Address [address] [place] [address] Phone Care Team Providers Care Antichecking Iron Worker Name Role Phone Villa Lr MD Primary Care Provider +1- [phone] Encounter Details Date Type Department Care Team (Late st Contact Info) Description 06/16/2023 Documentation Only [facility], [address] [place] [address] Abdulkadir Osorio MD [address] [place] [address] [place] [address] Social History Tobacco Use Types [...] Visit [facility] [address] [place] [address] Abdulkadir Osorio MD [address] [place] [address] documented as of this encounter Visit Diagnoses Not on filedocumented in this encounter Care Teams Antichecking Iron Worker Relationship Specialty Start Date End Date Villa Lr MD [address] [place] [address] PCP - General 05/04/19 documented as of this encounter
[2025-05-12] MEDS: iohexoL 350 MG/ML 100 ML INFUS..BTL 85 ML IV (10:40)
== END 2025-05-12 09:03 | disposition home or self-care (01) ==
LOC: HO.CT 09:02
PROVIDERS: PCP Internal Medicine; Visit Provider Nurse Practitioner Family
DX: N28.1 Cyst of kidney, acquired (principal)
CPT/HCPCS: 74178; Q9967

== ENCOUNTER → 2025-05-12 09:03 | Outpatient (BNV) | payer OTHER, SELFPAY | PROVIDERS: PCP Internal Medicine; Visit Provider Radiology Diagnostic Radiology | DX: N28.1 Cyst of kidney, acquired (principal) | CPT/HCPCS: 74178 ==

== ENCOUNTER 2025-05-30 10:16 | Outpatient (REF) | payer OTHER, SELFPAY ==
--- OUTSIDE RECORDS SUMMARY | 2025-05-30 12:44 | XMS_ITS | Clinical Summary ---
Author Organization [employer] Address [address] [place] [address] Care Team Providers Care Community Health Outreach Worker Name Role Phone Unavailable Primary Care [...] 2006 Mammogram 2016 COVID-19 Vaccine ( - 2024-2 6 season) 2025 Influenza Vaccine (#1) 2025 Zoster [...]
--- OUTSIDE RECORDS SUMMARY | 2025-05-30 12:44 | XMS_ITS | Encounter Summary ---
Author Organization [employer] Address [address] [place] [address] Care Team Providers Care Inside Sales Representative Name Role Phone Unavailable Primary Care Provider Unavailabl e Encounter Details Date Type Department Care Team (Latest Contact Info) Description 03/18/2019 Abstract [facility] CONVERSIONS Dental, Provider, DDS Social [...]
--- OUTSIDE RECORDS SUMMARY | 2025-05-30 12:44 | XMS_ITS | Data Portability ---
Author Organization [facility] [employer], [employer] Address [address] [facility] [place] [address] Care Team Providers Care Nick Setter Name Role Phone LATIA RASHID Referring Provider [phone] LATIA RASHID Primary Care Provider Assessment Encounter Date Assessment Date Assessment LastModified by Organization Details LastModified Time 10/07/2023 10/07/2023 IMPRESSION: --Migraine with visual aura [...] with April 2023 confirmation of medications from [facility]) -From [facility]: propranolol 60 mg twice daily topiramate 100 mg twice daily, Aimovig 140 mg/mL monthly autoinjector and Ubrelvy 100 mg as needed for breakthrough migraine from [facility] (she was also concurrently on rizatriptan [...] supports a strong muscular component. PLAN Ute Rogers October 07, 2023 FOR MIGRAINE PREVENTION You [...] in 1 month. Pedraza preguntado por la reducci n del topiramato. Estoy de acuerdo en que es razonable si tim que fernando migra as est n marcelino controladas con Aimovig para reducir la carga de medicaci n. Inicialmente hablamos de reducir hilario topiramato en 25 mg/mes, eduardo despu s de reflexionar un poco m s, con pastillas de 100 mg y con un seguimiento estrecho, creo que es razonable reducirlo en un 25%, lo que equivale a 50 mg y a la mitad de hilario pastilla de 100 mg. Por lo tanto, Reduzca el topiramato cristiano sigue: Topiramato 100 mg comprimidos: Cambie 1 comprimido cada ma laurent por 1/2 comprimido cada ma laurent. Contin e con 1 comprimido cada noche. Seguimiento en 1 mes. Traducci n realizada con la versi n gratuita del traductor [employer] (with edits by me) -Continue propranolol 60mg twice daily -CONTINUE Aimovig (generic name erenumab) 140 mg/mL subcutaneous autoinjector, one injection (1 mL, 140 mg) beneath the skin (``subcutaneously ) and outer upper arm, top of thigh, [...] with April 2023 confirmation of medications from [facility]) -From [facility]: propranolol 60 mg twice daily topiramate 100 mg twice daily, Aimovig 140 mg/mL monthly autoinjector and Ubrelvy 100 mg as needed for breakthrough migraine from [facility] (she was also concurrently on rizatriptan [...] currently on methocarbamol or metoclopramide. PLAN Ute Rogers November 11, 2023 FOR MIGRAINE PREVENTION CONTINUE Topiramate 50 mg twice daily CONTINUE propranolol 60mg twice daily CONTINUE Aimovig (generic name erenumab) 140 mg/mL subcutaneous autoinjector, one injection (1 mL, 140 mg) beneath the skin (``subcutaneously ) and outer upper arm, top of thigh, [...] extra dose in her refrigerator and to citrus picker the new prescription when it gets. [...] with April 2023 confirmation of medications from [facility]) -From [facility]: propranolol 60 mg twice daily topiramate 100 mg twice daily, Aimovig 140 mg/mL monthly autoinjector and Ubrelvy 100 mg as needed for breakthrough migraine from [facility] (she was also concurrently on rizatriptan [...] currently on methocarbamol or metoclopramide. PLAN Ute Rogers December 10, 2023 FOR MIGRAINE PREVENTION CONTINUE Topiramate 50 mg twice daily CONTINUE propranolol 60mg twice daily CONTINUE Aimovig (generic name erenumab) 140 mg/mL subcutaneous autoinjector, one injection (1 mL, 140 mg) beneath the skin (``subcutaneously ) and outer upper arm, top of thigh, [...] Ajovy as main contributor to near migraine resolution o nce every 2 weeks going away [...] extra dose in her refrigerator and to citrus picker the new prescription when it gets. [...] with April 2023 confirmation of medications from [facility]) -From [facility]: propranolol 60 mg twice daily topiramate 100 mg twice daily, Aimovig 140 mg/mL monthly autoinjector and Ubrelvy 100 mg as needed for breakthrough migraine from [facility] (she was also concurrently on rizatriptan [...] currently on methocarbamol or metoclopramide. PLAN Ute Rogers March 23, 2024 FOR MIGRAINE PREVENTION CONTINUE [...] 6 months cyndy Not available 03/23/2024 13:02:50 11/16/2024 11/16/2024 IMPRESSION: --Migraine with visual aura characterized as [...] Ajovy as main contributor to near migraine resolution o nce every 2 weeks going away with Ubrelvy easily. Still on topiramate and propranolol.--November 16, 2024 headache every other week on propranolol 60 mg twice daily, topiramate 50 mg twice daily and Aimovig 140 mg monthly; Ubrelvy 100 mg for breakthrough. >>>>>>>>>>>>November 16, 2024 She has happy with medication regimen for migraine. We will make no changes. >>>>>>>>>>>>Septem 2023 She wishes no changes and [...] extra dose in her refrigerator and to citrus picker the new prescription when it gets. [...] with April 2023 confirmation of medications from [facility]) -From [facility]: propranolol 60 mg twice daily topiramate 100 mg twice daily, Aimovig 140 mg/mL monthly autoinjector and Ubrelvy 100 mg as needed for breakthrough migraine from [facility] (she was also concurrently on rizatriptan [...] currently on methocarbamol or metoclopramide. PLAN Ute Rogers November 16, 2024 FOR MIGRAINE PREVENTION CONTINUE Aimovig 140 mg monthly subcutaneous injection CONTINUE Topiramate 50 [...] learned from physical therapy Follow-up 6 months [email or web address] Not available 11/16/2024 12:37:01 Plan of Treatment Reminders Order Date Submit Date Provider Last Modified By Organization Details Last Modified Time Details Appointments FOLLOW UP EXT 2024 02:30P Zenaida Lieberman MD PhD Not available Not available Not available Lab None recorded. Referral None recorded. Procedures None recorded. Surgeries None recorded. Imaging None recorded. Medication Orders propranol ol 60 mg tablet 2024 025 [facility] #[id number], [address] [place] [address], [id number], 11/16/2024 12:32:28 topiramat e 50 mg tablet 2024 025 [id number] [address] [place], [address], 11/16/2024 12:32:27 Ubrelvy 100 mg tablet 2024 025 [id number] [address] [place], [address], 11/16/2024 12:32:29 Aimovig Autoinjec tor 140 mg/mL subcutane ous auto-inje ctor 2024 025 [facility], [address], [place], [address], 12/26/2024 15:43:24 Ajovy 225 mg/1.5 mL subcutane ous auto-inje ctor 2023 025 [facility] #[id number], [address] [place], [address], 11/16/2024 12:31:09 Ubrelvy 100 mg tablet 2023 024 [facility] #[id number], [address] [place], [address], 03/23/2024 12:47:07 Ajovy 225 mg/1.5 mL subcutane ous auto-inje ctor 2023 024 cyndy [facility]/Pharmacy #[id number], [address] [place], [address], 11/16/2024 12:31:04 propranol ol 60 mg tablet 2023 024 [facility] #[id number], [address] [place], [address], 11/11/2023 11:21:02 topiramat e 50 mg tablet 2023 024 [id number] [address] [place], [address], 11/11/2023 11:21:03 Aimovig Autoinjec tor 140 mg/mL subcutane ous auto-inje ctor 2023 [facility]24 [id number] [address] [place], [address], 03/23/2024 12:59:57 Ubrelvy 100 mg tablet 2023 024 [id number] [address] [place], [address], 11/11/2023 11:21:02 topiramat e 100 mg tablet 2023 024 [id number] [address] [place] [address], [address], 11/16/2024 12:30:36 propranol ol 60 mg tablet 2023 024 [id number] [address] [place] [address], [address], 10/07/2023 10:22:21 Aimovig Autoinjec tor 140 mg/mL subcutane ous auto-inje ctor 2023 024 [id number] [address] [place], [address], 03/23/2024 12:59:57 Ubrelvy 100 mg tablet 2023 024 [id number] [address] [place] [address], [address], 10/07/2023 10:22:21 Patient TargetsNo targets recorded. 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 Dizziness is better. She has occasional breakthrough headaches but n ot strong . We reflected when she had reduced propranolol to 40 mg in the morning and 60 mg at night (all-be-it somewhat more abruptly than recommended) she had reemergence of headache. She would like to continue on propranolol 60 mg twice daily. -In preparation for her visit today, I reviewed the propranolol prescription in [place] and noted that she had a 90-day [...] every day. She was running out of [employer] for breakthrough migraine reported October 01, 2022. [...] not discuss the addition of rizatriptan through [facility] which we have discussed previously as she [...] over the potential side effects. She will citrus picker a sample today. 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 She has occasional breakthrough headaches but n ot strong . We reflected when she had reduced propranolol to 40 mg in the morning and 60 mg at night (all-be-it somewhat more abruptly than recommended) she had reemergence of headache. She would like to continue on propranolol 60 mg twice daily. -In preparation for her visit today, I reviewed the propranolol prescription in [place] and noted that she had a 90-day [...] not discuss the addition of rizatriptan through [facility] which we have discussed previously as she [...] over the potential side effects. She will citrus picker a sample today. 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 She has occasional breakthrough headaches but n ot strong . We reflected when she had reduced propranolol to 40 mg in the morning and 60 mg at night (all-be-it somewhat more abruptly than recommended) she had reemergence of headache. She would like to continue on propranolol 60 mg twice daily. -In preparation for her visit today, I reviewed the propranolol prescription in [place] and noted that she had a 90-day [...] not discuss the addition of rizatriptan through [facility] which we have discussed previously as she [...] over the potential side effects. She will citrus picker a sample today. 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 She has occasional breakthrough headaches but n ot strong . We reflected when she had reduced propranolol to 40 mg in the morning and 60 mg at night (all-be-it somewhat more abruptly than recommended) she had reemergence of headache. She would like to continue on propranolol 60 mg twice daily. -In preparation for her visit today, I reviewed the propranolol prescription in [place] and noted that she had a 90-day [...] not discuss the addition of rizatriptan through [facility] which we have discussed previously as she [...] over the potential side effects. She will citrus picker a sample today. 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 She has occasional breakthrough headaches but n ot strong . We reflected when she had reduced propranolol to 40 mg in the morning and 60 mg at night (all-be-it somewhat more abruptly than recommended) she had reemergence of headache. She would like to continue on propranolol 60 mg twice daily. -In preparation for her visit today, I reviewed the propranolol prescription in [place] and noted that she had a 90-day [...] not discuss the addition of rizatriptan through [facility] which we have discussed previously as she [...] over the potential side effects. She will citrus picker a sample today. She will follow-up [...] Chronic condition with exacerbation; prescription medication management Discussion across issues of diagnoses and management and same day associated chart review and management greater than 50% greater than 40 minutes [email or web address] Not available 11/16/2024 12:37:08 Reason for Referral None Reported. 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 Procedures Surgical History Date Name Laterality Status Provider Name and Address Organization Details Recorded Time 5 botulinum injection completed Imer Lieberman MD [address] [place] [address] [place], [phone], [facility] 11/16/2024 12:14:33 4 botulinum injection completed Imer Lieberman MD [address] [place] [address], YAK[place]ter[place], [phone], [facility] 03/23/2024 12:37:46 4 botulinum injection completed Imer Lieberman MD [address] [place] [address] B, YAK[place]ter[place], [phone], [facility] 12/10/2023 11:56:10 4 botulinum injection completed Imer Lieberman MD [address] [place] [address] B, YAKOV [place]ter[place], [phone], [facility] 11/11/2023 11:10:22 4 botulinum injection completed ENRIKE NORTON PA-C [address] [place] [address] B, [place], [phone], [facility] 10/07/2023 10:03:49 3 botulinum injection completed ENRIKE NORTON PA-C [address] [place] [address] B, YAK[place], [phone], [facility] 05/28/2023 09:39:33 3 botulinum injection completed ENRIKE NORTON PA-C [address] [place] [address] B, YAKOV [place]tero, [phone], [facility] 04/24/2023 10:42:13 3 botulinum injection completed ENRIKE NORTON PA-C [address] [place] [address] B, YAKOV [place]tero, [phone], [facility] 03/18/2023 10:47:21 3 botulinum injection completed ENRIKE NORTON PA-C [address] [place] [address] B, YAKOV Montero, [phone], [facility] 01/23/2023 09:59:39 3 botulinum injection completed ENRIKE NORTON PA-C [address] [place] [address] B, YAKOV Montero, [phone], [facility] 12/19/2022 11:33:40 3 botulinum injection completed ENRIKE NORTON PA-C [address] [place] [address] B, YAKOV Montero, [phone], [facility] 11/28/2022 13:56:45 3 botulinum injection completed ENRIKE NORTON PA-C [address] [place] [address] B, YAKOV Montero, [phone], [facility] 10/29/2022 10:47:52 3 botulinum injection completed ENRIKE NORTON PA-C [address] [place] [address] B, YAKOV Montero, [phone], [facility] 10/01/2022 13:50:41 3 botulinum injection completed Imer Lieberman MD [address] [place] [address] B, YAKOV Montero, [phone], [facility] 08/14/2022 17:00:39 3 botulinum injection completed ENRIKE NORTON PA-C [address] [place] [address] B, YAKOV Montero, [phone], [facility] 07/09/2022 14:05:58 2 botulinum injection completed Imer Lieberman MD [address] [place] [address] B, YAKOV Montero, [phone], [facility] 05/16/2022 13:33:52 2 botulinum injection completed ENRIKE NORTON PA-C [address] [place] [address] B, YAKOV Montero, [phone], [facility] 03/14/2022 14:10:23 2 botulinum injection completed Imer Lieberman MD [address] [place] [address] B, YAKOV Montero, [phone], [facility] 02/13/2022 09:15:23 2 botulinum injection completed ENRIKE NORTON PA-C [address] [place] [address] B, YAKOV Montero, [phone], [facility] 12/06/2021 13:50:32 2 botulinum injection completed Imer Lieberman MD [address] [place] [address], Winston YAKOV, [phone], [facility] 11/07/2021 13:30:06 2 botulinum injection completed ENRIKE NORTON PA-C [address] [place] [address], Winston YAKOV, [phone], [facility] 09/05/2021 14:12:15 2 botulinum injection completed Imer Lieberman MD [address] [place] [address], WinstonY[place] richard, [phone], [facility] 07/25/2021 15:27:34 2 botulinum injection completed ENRIKE NORTON PA-C [address] [place] [address], [place], [phone], [facility] 07/12/2021 08:55:03 1 botulinum injection completed ENRIKE NORTON PA-C [address] [place] [address], YAKOV Montero, [phone], [facility] 05/29/2021 22:54:52 1 botulinum injection completed Imer Lieberman MD [address] [place] [address], YAKOV Montero, [phone], [facility] 04/25/2021 14:30:46 1 botulinum injection completed Imer Lieberman MD [address] [place] [address] YAKOV Montero, [phone], [facility] 01/24/2021 19:05:02 1 botulinum injection completed Imer Lieberman MD [address] [place] [address] YAKOV Montero, [phone], [facility] 10/25/2020 18:09:08 Imaging Results None recorded. Procedure Notes None recorded. Medical Equipment None Reported. Medications Name Sig Start Date Stop Date Status Note LastModified by Organization Details LastModified Time ziprasido ne 80 mg capsule TAKE 1 CAPSULE BY MOUTH TWICE A DAY SUZIE CON COMIDA active Not Available Not Available No t Available amoxicill in 500 mg capsule TAKE 1 CAPSULE BY MOUTH EVERY 8 HOURS active Not Available Not Available No t Available budesonid e 32 mcg/actua tion nasal spray USE 2 SPRAYS IN EACH NOSTRIL DAILY NEEDED FOR NASAL AND SINUS CONGESTI O active Not Available Not Available No t Available metformin 500 mg tablet TOME 1 TABLETA POR V A ORAL DOS VECES AL D A active Not Available Not Available No t Available cromolyn 100 mg/5 mL oral concentra te GIVE 10 ML'S BY MOUTH 4 TIMES A DAY FOR 30 DAYS active Not Available Not Available No t Available clonidine HCl 0.1 mg tablet TOME JOSTIN TABLETA POR V A ORAL AL ACOSTARS E 03/23 completed Not Available Not Available Not Available propranol ol 80 mg tablet TOME JOSTIN TABLETA DOS VECES AL D A 03/23 completed Not Available Not Available Not Available atorvasta tin 20 mg tablet TOME JOSTIN TABLETA POR V A ORAL DAILY AT BEDTIME active Not Available Not Available No t Available Carafate 100 mg/mL oral suspensio n TAKE 10 ML BY MOUTH 4 TIMES A DAY. SWISH IN MOUTH AND SWALLOW USE AFTER FOOD/DRI NK active Not Available Not Available No t Available amitripty line 150 mg tablet TOME JOSTIN TABLETA TODOS LOS D AL ACOSTARS E active Not Available Not Available No t Available oxybutyni n chloride ER 10 mg tablet,ex tended release 24 hr TOME JOSTIN TABLETA POR V A ORAL A DIARIO active Not Available Not Available No t Available azithromy radha 250 mg tablet active Not Available Not Available No t Available amitripty line 75 mg tablet TOME 1 TABLETA POR V A ORAL TODOS LOS D AL ACOSTARS E active Not Available Not Available No t Available simethico ne 180 mg capsule TOME 1 C PSULA POR V A ORAL YASEMIN VECES AL D A active Not Available Not Available No t Available sumatript an 100 mg tablet TAKE 1/2 OR 1 TAB AT ONSET OF HEADACHE MAY REPEAT ONCE AFTER 2 HOURS 03/14 completed Not Available Not Available Not Available senna 8.6 mg tablet TAKE 2 TABLETS ORALLY AT BEDTIME NEEDED FOR FOR CONSTIPA TION active Not Available Not Available No t Available FreeStyle Lancets 28 gauge DIRECTED - 3 TIMES A DAY active Not Available Not Available No t Available famotidin e 40 mg tablet TOME JOSTIN TABLETA POR V A ORAL AL ACOSTARS E active Not Available Not Available No t Available rizatript an 10 mg tablet 1 tab at beinning of hedache, may repeat x1 after 30 minutes, max 2 tab/24 hours, 6 tabs/wk 03/23 completed Not Available Not Available Not Available sertralin e 100 mg tablet TOME JOSTIN Y MEDIA TABLETAS TODOS LOS PALMA POR VIA ORAL KI LO INDICADO 03/23 completed Not Available Not Available Not Available terconazo le 0.8 % vaginal cream 1 APPFUL VAGINALL Y BEDTIME FOR 3 DAYS active Not Available Not Available No t Available clonazepa m 1 mg tablet TAKE 1 TABLET BY MOUTH TWICE A DAY NEEDED SAM SOLAMENT E CUANDO TIENE ANSIEDAD MUY WILL active Not Available Not Available No t Available pioglitaz one 45 mg tablet TOME 1 TABLETA POR V A ORAL TODOS LOS D active Not Available Not Available No t Available propranol ol 60 mg tablet TOME 1 TABLETA POR V A ORAL DOS VECES AL D A FOR MIGRAINE PREVENTI ON active Not Available Not Available No t Available melatonin 3 mg tablet TAKE TWO TABLETS ONE HOUR BEFORE BEDTIME DIRECTED active Not Available Not Available No t Available sulfameth oxazole 800 mg-trimet hoprim 160 mg tablet TOME JOSTIN TABLETA POR V A ORAL DOS VECES AL D A FOR 5 DAYS active Not Available Not Available No t Available peg-elect rolyte solution 420 gram oral solution PLEASE SEE ATTACHED FOR DETAILED DIRECTIO NS active Not Available Not Available No t Available omeprazol e 40 mg capsule,d elayed release TOME 1 C PSULA POR V A ORAL A DIARIO active Not Available Not Available No t Available aspirin 81 mg tablet,de layed release TOME JOSTIN TABLETA TODOS LOS D active Not Available Not Available No t Available tramadol 50 mg tablet TOME JOSTIN TABLETA POR V A ORAL 2 TO 3 TIMES DAILY NEEDED FOR PAIN active Not Available Not Available No t Available acetamino phen 500 mg tablet TAKE 1 TABLET ORALLY EVERY 6 HOURS NEEDED FOR FEVER active Not Available Not Available No t Available amoxicill in 500 mg tablet active Not Available Not Available Not Available vancomyci n 125 mg capsule TAKE ONE CAP BY MOUTH EVERY 6 HOURS FOR 10 DAYS active Not Available Not Available No t Available baclofen 20 mg tablet TOME 1 TABLETA POR V A ORAL DOS VECES AL D A NEEDED FOR MUSCLE SPASMS FOR 30 DAYS active Not Available Not Available No t Available Miconazol e-7 2 % vaginal cream 1 APPFUL VAGINALL Y BEDTIME FOR 7 DAYS active Not Available Not Available No t Available terbinafi ne HCl 250 mg tablet TAKE 1 TABLET BY MOUTH EVERY FRIDAY AND FRIDAY active Not Available Not Available No t Available famotidin e 20 mg tablet 1 TABLET TWICE A DAY NEEDED FOR ABDOMINA L PAIN ORALLY active Not Available Not Available No t Available methocarb lukas 750 mg tablet active Not Available Not Available No t Available dicyclomi ne 20 mg tablet TOME JOSTIN TABLETA POR V A ORAL DOS VECES AL D A active Not Available Not Available No t Available Mapap (acetamin ophen) 500 mg capsule TOME 1 C PSULA POR V A ORAL CADA SEIS HORAS CUANDO SEA NECESARI O PARA LA FIEBRE active Not Available Not Available No t Available baclofen 10 mg tablet TOME 1 TABLETA POR V A ORAL DOS VECES AL D A CUANDO SEA NECESARI O PARA ESPASMOS MUSCULAR ES X30 DAYS active Not Available Not Available No t Available benzonata te 100 mg capsule TOME 1 C PSULA POR V A ORAL YASEMIN VECES AL D A active Not Available Not Available No t Available pantopraz ole 40 mg tablet,de layed release TAKE 1 TABLET BY MOUTH DAILY active Not Available Not Available No t Available metformin 1,000 mg tablet TOME JOSTIN TABLETA POR V A ORAL DOS VECES AL D A FOR 90 DAYS active Not Available Not Available No t Available esomepraz ole magnesium 40 mg capsule,d elayed release TOME 1 C PSULA POR V A ORAL TODOS LOS D active Not Available Not Available No t Available triamcino lone acetonide 55 mcg nasal spray aerosol SPRAY 1 SPRAY INTRANAS ALLY DAILY active Not Available Not Available No t Available ibuprofen 400 mg tablet active Not Available Not Available Not Available gabapenti n 300 mg capsule TAKE 1 CAPSULE ORALLY AT BEDTIME FOR PAIN active Not Available Not Available No t Available omeprazol e 20 mg capsule,d elayed release TOME JOSTIN C PSULA TODOS LOS D BEFORE MEALS DIRECTED . active Not Available Not Available No t Available monteluka st 10 mg tablet TOME 1 TABLETA POR V A ORAL TODOS LOS D AL ACOSTARS E active Not Available Not Available No t Available hydroxyzi ne HCl 25 mg tablet TOME 1 TABLETA POR V A ORAL YASEMIN VECES AL D A CUANDO SEA NECESARI O PARA LA ANSIEDAD active Not Available Not Available No t Available bisacodyl 5 mg tablet,de layed release TOME DOS TABLETAS (10MG) POR V A ORAL AL ACOSTARS E 30 DAYS active Not Available Not Available No t Available gabapenti n 100 mg capsule TOME 1 C PSULA POR V A ORAL AL ACOSTARS E active Not Available Not Available No t Available ibuprofen 600 mg tablet active Not Available Not Available Not Available methylpre dnisolone 4 mg tablets in a dose pack active Not Available Not Available Not Available pioglitaz one 30 mg tablet TOME 1 TABLETA POR V A ORAL TODOS LOS D active Not Available Not Available No t Available ondansetr on 4 mg disintegr ating tablet DISUELVA JOSTIN TABLETA POR V A ORAL YASEMIN VECES AL D A active Not Available Not Available No t Available topiramat e 100 mg tablet TOME 1/2 TABLETA POR LA MANANA Y 1 TABLETA POR LA NOCHE 11/16 completed to same dose with 50s Not Available Not Available Not Available clotrimaz ole 1 % topical cream APPLY TO BOTTOM OF FEET ONCE A DAY active Not Available Not Available No t Available sertralin e 50 mg tablet TOME 1 TABLETA POR V A ORAL TODOS LOS D EN LA MA LAURENT active Not Available Not Available No t Available amitripty line 100 mg tablet TOME JOSTIN TABLETA POR V A ORAL AL ACOSTARS E active Not Available Not Available No t Available dicyclomi ne 10 mg capsule TOME 1 C PSULA POR V A ORAL CUATRO VECES AL D A TODOS LOS D active Not Available Not Available No t Available metoclopr amide 10 mg tablet TOME JOSTIN TABLETA POR V A ORAL AL ACOSTARS E 1 AND 1/2 HOURS ANTES DE LAS COMIDAS NO SERTRALI NE active Not Available Not Available No t Available amoxicill in 875 mg-potass ium clavulana te 125 mg tablet active Not Available Not Available Not Available amoxicill in 500 mg-potass ium clavulana te 125 mg tablet active Not Available Not Available Not Available Ventolin HFA 90 mcg/actua tion aerosol inhaler INHALE 2 PUFFS BY MOUTH 4 TIMES A DAY NEEDED FOR FOR WHEEZING active Not Available Not Available No t Available Botox 100 unit injection Inject intramus cularly into posterio r shoulder , neck, and scalp 03/23 completed Not Available Not Available Not Available Fiber Therapy (methylce llulose) 500 mg tablet TAKE 1 TABLET BY MOUTH 2 TIMES A DAY. NOT COVERED active Not Available Not Available No t Available topiramat e 50 mg tablet TOME 1 TABLETA POR V A ORAL DOS VECES AL D A active Not Available Not Available No t Available duloxetin e 20 mg capsule,d elayed release TOME 1 C PSULA POR V A ORAL TODOS LOS D active Not Available Not Available No t Available Fiber Therapy Laxative (psyllium husk) 0.52 gram capsule TOME 2 C PSULAS WITH 8 OUNCES OF FLUID YASEMIN VECES AL D A active Not Available Not Available No t Available FreeStyle Lite Meter kit active Not Available Not Available No t Available FreeStyle Lite Strips TEST BLOOD SUGAR DIRECTED 3 TIMES A DAY active Not Available Not Available No t Available cholecalc iferol (vitamin D3) 50 mcg (2,000 unit) capsule TOME 1 C PSULA POR V A ORAL TODOS LOS D active Not Available Not Available No t Available Creon 24,000-76 ,000-120, 000 unit capsule,d elayed release TOME JOSTIN C PSULA CUATRO VECES AL D A active Not Available Not Available No t Available liragluti de 0.6 mg/0.1 mL (18 mg/3 mL) subcutane ous pen injector INJECT 1.2 MG (0.2 ML) SUBCUTAN EOUSLY DAILY active Not Available Not Available No t Available Antifunga l (miconazo le) 2 % topical powder APPLY TOPICALL Y 2 TIMES A DAY active Not Available Not Available No t Available Linzess 290 mcg capsule TOME 1 C PSULA POR V A ORAL CADA MA LAURENT active Not Available Not Available No t Available BD Ultra-Fin e Micro Pen Needle 32 gauge x 1/4 USE DIRECTED ONCE DAILY active Not Available Not Available No t Available Aimovig Autoinjec tor 140 mg/mL subcutane ous auto-inje ctor Inject 1 mL every month subcutan eously once for 30 days. active Not Available Not Available No t Available BD Marlin 2nd Gen Pen Needle 32 gauge x USE SEG N LO INDICADO active Not Available Not Available No t Available Ubrelvy 100 mg tablet PLEASE SEE ATTACHED FOR DETAILED DIRECTIO NS active Not Available Not Available No t Available Ajovy 225 mg/1.5 mL subcutane ous auto-inje ctor Inject 1.5 mL every month by subcutan eous route for 30 days. 11/16 completed bck to [employer] works as well ins. 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 Dystonia 65865430 G24.3 Facial spasm 55505673 G5 1.39 Migraine without aura 56 565618 G43.009 [id number] Imer Lieberman MD [facility] [address] [place] [address] [place] [id number] 4 01/24/2021 14:50:22 01/25/2021 08:16:40 Idiopathic non-familial dystonia 446547740 G24.1 Dystonia 52393823 G24.3 Facial spasm 69177501 G5 1.39 Migraine without aura 56 155868 G43.009 [id number] Imer Lieberman MD [facility] [address] [place] [address] [place] [id number] 4 02/28/2021 11:51:24 02/28/2021 12:29:37 Idiopathic non-familial dystonia 221557017 G24.1 Dystonia 08822366 G24.3 Facial spasm 02392271 G5 1.39 Migraine without aura 56 465604 G43.009 [id number] Imer Lieberman MD [facility] [address] [place] [address] JOSE RETANAHILARY YAKOV [id number] 4 04/25/2021 12:22:14 04/26/2021 07:40:15 Idiopathic non-familial dystonia 273432300 G24.1 Dystonia 94797959 G24.3 Facial spasm 46791466 G5 1.39 Migraine without aura 56 228649 G43.009 [id number] [facility] [address] [place] [address] Gordo YAKOV MONTERO [id number] 4 05/29/2021 10:02:07 05/30/2021 15:05:44 Idiopathic non-familial dystonia 965493899 G24.1 Dystonia 65111582 G24.3 Facial spasm 47666540 G5 1.39 Migraine without aura 56 485055 G43.009 Migraine with aura 91714 06 G43.109 [id number] [facility] [address] [place] [address] JOSE Caro YAKOV MONTERO [id number] 4 07/12/2021 08:51:06 08/03/2021 15:14:49 Idiopathic non-familial dystonia 043191718 G24.1 Dystonia 80109680 G24.3 Facial spasm 14868003 G5 1.39 Migraine without aura 56 443449 G43.009 [id number] Imer Lieberman MD [facility] [address] [place] [address] Grodo YAKOV MONTERO [id number] 4 07/25/2021 13:52:53 07/25/2021 16:35:44 Idiopathic non-familial dystonia 130085502 G24.1 Dystonia 82269703 G24.3 Facial spasm 51476087 G5 1.39 Migraine without aura 56 615650 G43.009 [id number] ENRIKE NORTON PA-C [facility] [address] [place] [address] Gordo YAKOV MONTERO [id number] 4 09/05/2021 14:01:17 09/10/2021 10:57:43 Idiopathic non-familial dystonia 301942845 G24.1 Dystonia 91373517 G24.3 Facial spasm 17933075 G5 1.39 Migraine without aura 56 253255 G43.009 [id number] Imer Lieberman MD [facility] [address] [place] [address] Gordo RETANAWINSTONYAKOV RICHARD [id number] 4 11/07/2021 12:25:50 11/07/2021 18:58:37 Idiopathic non-familial dystonia 249500991 G24.1 Dystonia 68731687 G24.3 Facial spasm 91542522 G5 1.39 Migraine without aura 56 375271 G43.009 [id number] ENRIKE NORTON [facility] [address] [place] [address] JOSE Caro YAKOV MONTERO [id number] 4 12/06/2021 13:06:48 12/10/2021 15:27:19 Idiopathic non-familial dystonia 644498863 G24.1 Dystonia 28058989 G24.3 Facial spasm 91797022 G5 1.39 Migraine without aura 56 089574 G43.009 [id number] Imer Lieberman MD [facility] [address] [place] [address] JOSE Caro YAKOV MONTERO [id number] 4 02/13/2022 07:56:35 02/13/2022 09:24:50 Idiopathic non-familial dystonia 115780841 G24.1 Dystonia 49255245 G24.3 Facial spasm 10168283 G5 1.39 Migraine without aura 56 587354 G43.009 [id number] ENRIKE NORTON [facility] [address] [place] [address] JOSE Caro YAKOV MONTERO [id number] 4 03/14/2022 13:58:56 03/19/2022 09:35:39 Idiopathic non-familial dystonia 655582055 G24.1 Dystonia 14939902 G24.3 Facial spasm 53965838 G5 1.39 Migraine without aura 56 461454 G43.009 [id number] Imer Lieberman MD [facility] [address] [place] [address] Gordo YAKOV MONTERO [id number] 4 05/16/2022 11:40:07 05/16/2022 15:55:55 Idiopathic non-familial dystonia 117566657 G24.1 Dystonia 28973160 G24.3 Facial spasm 15687686 G5 1.39 Migraine without aura 56 235023 G43.009 [id number] ENRIKE NORTON PA-C [facility] [address] [place] [address] Gordo YAKOV MONTERO [id number] 4 07/09/2022 13:59:24 07/25/2022 12:39:21 Idiopathic non-familial dystonia 209860630 G24.1 Dystonia 55251555 G24.3 Facial spasm 03328822 G5 1.39 Migraine without aura 56 714765 G43.009 Migraine with aura 52182 06 G43.109 [id number] Imer Lieberman MD [facility] [address] [place] [address] Gordo YAKOV MONTERO [id number] 4 08/14/2022 15:04:31 08/14/2022 17:43:36 Idiopathic non-familial dystonia 738912383 G24.1 Dystonia 95970916 G24.3 Facial spasm 56186097 G5 1.39 Migraine without aura 56 921709 G43.009 [id number] ENRIKE NORTON PA-C [facility] [address] [place] [address] Gordo YAKOV MONTERO [id number] 4 10/01/2022 13:45:47 10/03/2022 11:40:32 Idiopathic non-familial dystonia 104867374 G24.1 Dystonia 48777130 G24.3 Facial spasm 36920140 G5 1.39 Migraine without aura 56 517869 G43.009 Migraine with aura 50913 06 G43.109 [id number] ENRIKE NORTON PA-C [facility] [address] [place] [address] [place] [id number] 4 10/29/2022 10:18:41 11/04/2022 15:06:43 Idiopathic non-familial dystonia 819471453 G24.1 Dystonia 70655426 G24.3 Facial spasm 99677967 G5 1.39 Migraine without aura 56 662616 G43.009 Migraine with aura 77517 06 G43.109 [id number] ENRIKE NORTON PA-C [facility] [address] [place] [address] Gordo YAKOV MONTERO [id number] 4 11/28/2022 13:27:59 12/02/2022 15:28:22 Idiopathic non-familial dystonia 014245333 G24.1 Dystonia 43660054 G24.3 Facial spasm 27220143 G5 1.39 Migraine without aura 56 192357 G43.009 Migraine with aura 68898 06 G43.109 [id number] ENRIKE NORTON PA-C [facility] [address] [place] [address] [place] [id number] 4 12/19/2022 11:07:15 12/23/2022 16:34:25 Idiopathic non-familial dystonia 999794519 G24.1 Dystonia 44056594 G24.3 Facial spasm 44819689 G5 1.39 Migraine without aura 56 931752 G43.009 Migraine with aura 74020 06 G43.109 [id number] ENRIKE NORTON PA-C [facility] [address] [place] [address] [place] [id number] 4 01/23/2023 09:21:21 02/10/2023 16:21:14 Idiopathic non-familial dystonia 605948070 G24.1 Dystonia 71984472 G24.3 Facial spasm 29481251 G5 1.39 Migraine without aura 56 502611 G43.009 Migraine with aura 50580 06 G43.109 [id number] ENRIKE NORTON PA-C [facility] [address] [place] [address] [place] [id number] 4 03/18/2023 10:30:58 03/19/2023 17:32:28 Idiopathic non-familial dystonia 502494317 G24.1 Dystonia 13611974 G24.3 Facial spasm 01887514 G5 1.39 Migraine without aura 56 390589 G43.009 Migraine with aura 97038 06 G43.109 [id number] ENRIKE NORTON PA-C [facility] [address] [place] [address] [place] [id number] 4 04/24/2023 10:15:35 04/30/2023 10:38:58 Idiopathic non-familial dystonia 608866359 G24.1 Dystonia 75107673 G24.3 Facial spasm 86925518 G5 1.39 Migraine without aura 56 084406 G43.009 Migraine with aura 30239 06 G43.109 [id number] ENRIKE NORTON PA-C [facility] [address] [place] [address] [place] [id number] 4 05/28/2023 09:14:15 05/29/2023 16:35:04 Idiopathic non-familial dystonia 795195060 G24.1 Dystonia 13165238 G24.3 Facial spasm 81904526 G5 1.39 Migraine without aura 56 381168 G43.009 Migraine with aura 37070 06 G43.109 [id number] ENRIKE NORTON PA-C [facility] [address] [place] [address] Gordo YAKOV MONTERO [id number] 4 10/07/2023 09:31:55 10/13/2023 13:14:20 Idiopathic non-familial dystonia 664032058 G24.1 Dystonia 35977993 G24.3 Facial spasm 93336057 G5 1.39 Migraine without aura 56 189572 G43.009 Migraine with aura 16562 06 G43.109 [id number] Imer Lieberman MD [facility] [address] [place] [address] Gordo YAKOV MONTERO [id number] 4 11/11/2023 10:36:51 11/11/2023 11:43:45 Idiopathic non-familial dystonia 025676978 G24.1 Dystonia 20809887 G24.3 Facial spasm 20192505 G5 1.39 Migraine without aura 56 347669 G43.009 Migraine with aura 96598 06 G43.109 [id number] Imer Lieberman MD [facility] [address] [place] [address] Gordo YAKOV MONTERO [id number] 4 12/10/2023 11:11:30 12/10/2023 12:19:37 Idiopathic non-familial dystonia 452248724 G24.1 Dystonia 17869905 G24.3 Facial spasm 03097480 G5 1.39 Migraine without aura 56 269594 G43.009 Migraine with aura 52348 06 G43.109 [id number] Imer Lieberman MD [facility] [address] [place] [address] Gordo YAKOV MONTERO [id number] 4 03/23/2024 11:39:14 03/23/2024 17:16:47 Idiopathic non-familial dystonia 441896442 G24.1 Dystonia 40334804 G24.3 Facial spasm 13048741 G5 1.39 Migraine without aura 56 391114 G43.009 Migraine with aura 76688 06 G43.109 [id number] Imer Lieberman MD [facility] [address] [place] [address] [place] [id number] 4 11/16/2024 11:28:18 11/16/2024 12:38:59 Idiopathic non-familial dystonia 123437973 G24.1 Dystonia 92334386 G24.3 Facial spasm 42580917 G5 1.39 Migraine without aura 56 177736 G43.009 Migraine with aura 24388 06 G43.109 Health Concerns Section Related Observation LastModified by Organization Detai ls LastModified Time None Recorded Concern Status LastModified by Organization Details LastModified Time None Recorded Advance Directives Directive None Recorded Payers Insurance Date Sequence Insurance Name Policy Number Policy Leone Covered Member ID Leone Member ID Guarantor Name 05/30/2025 1 [facility] ISABELLAHillary Ute Goldberg [id number] Ute Goldberg Notes Date Note Type Note Provider Name and Address Organization Details Recorded Time 10/07/2023 text/html Follow-up breakthrough headache in the [...] She is working with Andreina Greer APRN, [facility] comprehensive pain management center and will be having an injection to her low back on May 01. >>>>>>>>>>>>Septembe r 2022Since January 23, 2023 neurology follow-up, [...] she is on right now. She explains y ou lowered the dose to 60 in the morning and 80 at night . Associated this for a while and [...] about 2/week and less severe than before, n ot like a big headache . She has to drink the pill [...] but she has also been to her aerographer/ophthalm ologist and had her glasses changed but [...] a little bit good, much better than before . She is having migraines about 2-3 [...] She came in later that day to citrus picker the Aimovig 70 mg/mL sample and p ut it in on October 02, 2022. She has not [...] that 2 months ago they were worse O h my God, they were every day which gave me dizziness and nausea .She shows me her medication list and [...] days. Currently, she says that she is a little bit fine . I asked her about the increasing [...] had a good holiday. Today, she reports t his time after botox it is doing good . She goes on to explain that [...] with psychiatry on this. Imer Lieberman MD [address] [place] [address], [phone], [facility] 10/13/2023 11:40:53 11/11/2023 text/html Follow-up of history of debilitation headache--Past history includes a psychiatric [...] She is working with Andreina Greer APRN, [facility] comprehensive pain management center and will [...] she is on right now. She explains y ou lowered the dose to 60 in the morning and 80 at night . Associated this for a while and [...] about 2/week and less severe than before, n ot like a big headache . She has to drink the pill [...] but she has also been to her aerographer/ophthalm ologist and had her glasses changed but [...] a little bit good, much better than before . She is having migraines about 2-3 [...] She came in later that day to citrus picker the Aimovig 70 mg/mL sample and p ut it in on October 02, 2022. She has not [...] that 2 months ago they were worse O h my God, they were every day which gave me dizziness and nausea .She shows me her medication list and [...] days. Currently, she says that she is a little bit fine . I asked her about the increasing [...] had a good holiday. Today, she reports t his time after botox it is doing good . She goes on to explain that [...] with psychiatry on this. Imer Lieberman MD [address] [place] [address], [phone], [facility] 11/11/2023 11:32:39 12/10/2023 text/html Follow-up of history of debilitation headache--Past history includes a psychiatric [...] She is working with Andreina Greer APRN, [facility] comprehensive pain management center and will [...] she is on right now. She explains y ou lowered the dose to 60 in the morning and 80 at night . Associated this for a while and [...] about 2/week and less severe than before, n ot like a big headache . She has to drink the pill [...] but she has also been to her aerographer/ophthalm ologist and had her glasses changed but [...] a little bit good, much better than before . She is having migraines about 2-3 [...] She came in later that day to citrus picker the Aimovig 70 mg/mL sample and p ut it in on October 02, 2022. She has not [...] that 2 months ago they were worse O h my God, they were every day which gave me dizziness and nausea .She shows me her medication list and [...] days. Currently, she says that she is a little bit fine . I asked her about the increasing [...] had a good holiday. Today, she reports t his time after botox it is doing good . She goes on to explain that [...] with psychiatry on this. Imer Lieberman MD [address] [place] [address] [place], [phone], [facility] 12/10/2023 12:17:54 03/23/2024 text/html Follow-up of history of debilitation headache--Past history includes a bipolar disorder and depression, and fibromyalgia and back pain.--She is accompanied by her , Nura; Not present, Catherine, her sister. >>>>>>>>>>>>Septembe 2023Since December 10, 2023 Neurology follow-up encounter, [...] She is working with Andreina Greer APRN, [facility] comprehensive pain management center and will be having an injection to her low back on May 01. >>>>>>>>>>>>Febdeliae r 2022Since January 23, 2023 neurology follow-up, [...] she is on right now. She explains y ou lowered the dose to 60 in the morning and 80 at night . Associated this for a while and [...] about 2/week and less severe than before, n ot like a big headache . She has to drink the pill [...] but she has also been to her aerographer/ophthalm ologist and had her glasses changed but [...] a little bit good, much better than before . She is having migraines about 2-3 [...] She came in later that day to citrus picker the Aimovig 70 mg/mL sample and p ut it in on October 02, 2022. She has not [...] that 2 months ago they were worse O h my God, they were every day which gave me dizziness and nausea .She shows me her medication list and [...] days. Currently, she says that she is a little bit fine . I asked her about the increasing [...] had a good holiday. Today, she reports t his time after botox it is doing good . She goes on to explain that [...] with psychiatry on this. Imer Lieberman MD [address] [place] [address], [phone], [facility] 03/23/2024 13:04:47 11/16/2024 text/html Follow-up of history of debilitation headache--Past history includes a bipolar disorder and depression, and fibromyalgia and back pain.--She is accompanied by her , Nura; Not present, Catherine, her sister. >>>>>>>>>>>>November 16, 2024Since March 23, 2024 Neurology follow-up encounter, she is a little good. Her migraine headaches continue only every other week. She continues on Ubrelvy for migraine breakthrough. She continues on propranolol 60 mg twice a day for migraine prevention.She continues on topiramate for migraine prevention. She thinks 100 mg twice a day. My chart says I am prescribing 50 mg twice a day. She will check on her bottle when she gets home and call us if her bottle says 100 mg tablets.Pharmacy has switched her from Ajovy 225 mg monthly injection for migraine back to Aimovig 140 mg monthly injection. I had switched her to Ajovy in mid 2019 for what I was told that insurance no longer excepted Aimovig. We investigated and found that indeed insurance was excepting Aimovig and she has been filling that prescription lately after failing Ajovy for several months. The prescription she is feeling was from December 2023 and is just now running out for Aimovig. The Aimovig works just as well and she is happy to remain on the Aimovig. We will refill it.She has remained off amitriptyline that was stopped in early February 2024 by psychiatry. Apparently this has not worsened her headaches. There have been no other psychiatry medication changes since. >>>>>>>>>>>>Lalito r 2023Since December 10, 2023 Neurology [...] She is working with Andreina Greer APRN, [facility] comprehensive pain management center and will be having an injection to her low back on May 01. >>>>>>>>>>>>Febdeliae r 2022Since January 23, 2023 neurology follow-up, [...] she is on right now. She explains y ou lowered the dose to 60 in the morning and 80 at night . Associated this for a while and [...] about 2/week and less severe than before, n ot like a big headache . She has to drink the pill [...] but she has also been to her aerographer/ophthalm ologist and had her glasses changed but [...] a little bit good, much better than before . She is having migraines about 2-3 [...] She came in later that day to citrus picker the Aimovig 70 mg/mL sample and p ut it in on October 02, 2022. She has not [...] that 2 months ago they were worse O h my God, they were every day which gave me dizziness and nausea .She shows me her medication list and [...] days. Currently, she says that she is a little bit fine . I asked her about the increasing [...] needed to decide between Botox or Aimovig. >>>>>>>>>>>>>>>Revie w of August 14, 2022 Botox injections [...] had a good holiday. Today, she reports t his time after botox it is doing good . She goes on to explain that [...] with psychiatry on this. Imer Lieberman MD [address] [place] [address] [place], [id number], [facility] 11/16/2024 12:37:21 OBGyn Episode No OBEpisode recorded.
--- OUTSIDE RECORDS SUMMARY | 2025-05-30 12:44 | XMS_ITS | Encounter Summary ---
Author Organization [employer] Address [address] [place] [address] Care Team Providers Care Weight Guesser Name Role Phone Unavailable Primary Care Provider Unavailabl e Encounter Details Date Type Department Care Team (Latest Contact Info) Description 05/17/2021 Abstract [facility] CONVERSIONS Dental, Provider, DDS Social History [...]
[2025-05-30 13:23] LABS: MANUAL DIFF FLAG NO
[2025-05-30 13:25] LABS: Appearance Urine Clear; Glucose Urine UA Negative (Negative); PH 5.5 (5.0-9.0); Specific Gravity - Urine 1.015 (1.005-1.025)
[2025-05-30 13:45] LABS: Hematocrit 39.0 % (37.0-47.0); Hemoglobin 12.0 g/dl (12.0-16.0); Imm Gran Abs Auto 0.06 X10*3/uL (0.00-0.03); Imm Gran Pct Auto 0.7 % (0.0-0.4); Lymphocytes Absolute Auto 2.5 X10*3/uL (1.2-4.9); Mean Corpuscular HGB Conc 30.8 g/dl (31.0-35.0); Mean Corpuscular Hemoglobin 28.4 pg (27.0-33.0); Mean Corpuscular Volume 92.4 fL (80.0-98.0); NRBC Abs Auto 0.000 X10*3/uL (0.0-0.012); NRBC Pct Auto 0.0 /100WBC (0.0-0.2); Platelet Count 287 X10*3/uL (160-400); Red Blood Count 4.22 X10*6/uL (4.20-5.50); White Blood Count 8.6 X10*3/uL (4.8-10.8)
[2025-05-30 14:08] LABS: Hemoglobin A1C 151.0426 umol/L
[2025-05-30 14:11] LABS: Alanine Aminotransferase 13 U/L (0-31); Albumin Level 4.5 g/dL (3.5-5.0); Alkaline Phosphatase 87 U/L (39-117); Anion Gap 11 (12-20); Aspartate Amino Transferase 19 U/L (5-31); Blood Urea Nitrogen 11 mg/dL (9-16); Calcium 9.6 mg/dL (8.4-10.2); Carbon Dioxide 25 mmol/L (22-29); Chloride 108 mmol/L (96-108); Cholesterol 150 mg/dL (<200); Estimated Glomerular Filt Rate > 60; HDL Cholesterol 60 mg/dL (>40); Potassium 4.8 mmol/L (3.3-5.1); Sodium 139 mmol/L (135-145); Total Protein 7.4 g/dL (6.5-8.0); Triglycerides 171 mg/dL (<150)
[2025-05-30 14:21] LABS: Folate 7.5 ng/mL (> or = 4.0); Vitamin B12 246 pg/mL (200-900)
[2025-05-30 14:22] LABS: Microalbum/Creatinine Ratio Ur 13.1 ug/mg cr (<30)
== END 2025-05-30 10:17 | disposition home or self-care (01) ==
LOC: HO.HMGCLDS 10:16
PROVIDERS: PCP Internal Medicine; Visit Provider Internal Medicine
DX: E11.9 Type 2 diabetes mellitus without complications (principal); E53.8 Deficiency of other specified B group vitamins; D64.9 Anemia, unspecified; E78.00 Pure hypercholesterolemia, unspecified; E55.9 Vitamin D deficiency, unspecified; R30.0 Dysuria
CPT/HCPCS: 36415; 80053; 80061; 81003; 82043; 82306; 82570; 82607; 82746; 83036; 84443; 85025

== ENCOUNTER 2025-06-06 13:26 | Outpatient (AMB) | payer OTHER, SELFPAY ==
--- NOTE | 2025-06-06 13:29 | A.OFFPC_ITS ---
Vital Signs 06/06/25 13:30 Height 5 ft 4 in Weight 215 lb BMI 36.9 BP 110/70 Blood Pressure Location Lt brachial Position Sitting Pulse 73 Pulse Source Pulse Oximeter Temp 97.1 F Temp Source Temporal Artery Scan Pulse Oximetry (%) 97 Oxygen Delivery Method Room Air Intake Visit Reasons: DM, hyperlipidemia, HTN Intake Note: Patient is here to follow up on DM, HTN, HLD. 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 Required: No Senior Procurement Specialist: Present Accompanied by: Spouse Allergies meclizine Adverse Reaction (Verified 06/06/25 14:12) tachycardia metoclopramide Adverse Reaction (Verified 06/06/25 14:12) tachycardia Medication List - Last Reconciled 06/06/25 by Villa Lr MD [ADULT PULL UPS As directed] albuterol sulfate 90 mcg/actuation (Ventolin HFA) 2 puffs inhalation QID PRN alum-mag hydroxide-simeth 400-400-40 mg/5 mL (Mylanta Maximum Strength) 10 mL PO TID PRN atorvastatin 20 mg PO BEDTIME 90 days baclofen 20 mg PO BID PRN 30 days blood sugar diagnostic (FreeStyle Lite Strips) TEST BLOOD SUGAR DIRECTED 3 TIMES A DAY budesonide 32 mcg/actuation 2 sprays intranasal DAILY PRN cane As directed cholecalciferol (vitamin D3) 50 mcg PO DAILY 90 days clonazepam 1 mg PO TID diaper,brief,adult,disposable (Depend Easy Fit Undergarments [facility]) As directed dicyclomine 20 mg PO BID erenumab-aooe (Aimovig Autoinjector) 140 mg subcut [id number] esomeprazole magnesium 40 mg PO DAILY [FREESTYLE LITE TEST STRIPS Test blood sugar as directed 3 times a day - E11.9 -- DIABETES] FreeStyle Lite Meter (blood-glucose meter) As directed NS gabapentin 300 mg PO BEDTIME 90 days hydroxyzine HCl mg PO 3XD lancets (FreeStyle Lancets) As directed- 3 times a day linaclotide (Linzess) 290 mcg PO QAM liraglutide (Victoza 3-Shamir) 1.2 mg (0.2 mL) subcut DAILY melatonin 6 mg PO BEDTIME metformin 1,000 mg PO BID 90 days montelukast 10 mg PO BEDTIME 90 days ondansetron 4 mg sublingual TID oxybutynin chloride ER 10 mg PO DAILY 30 days pen needle, diabetic (Comfort EZ Pen [place]) As directed daily pioglitazone 45 mg PO DAILY propranolol 60 mg PO BID sennosides (senna) 17.2 mg (2 x 8.6 mg) PO BEDTIME PRN sertraline 50 mg PO DAILY simethicone 180 mg PO TID terconazole 0.8% 1 appful vaginal BEDTIME 3 days topiramate 100 mg PO BID tramadol 50 mg PO TID PRN 30 days triamcinolone acetonide 1 spray intranasal DAILY ubrogepant (Ubrelvy) 100 mg PO DAILY PRN ziprasidone HCl (Geodon) 80 mg PO BID Tobacco use date assessed: 06/06/25 Dental Screening Dental Screen Date: 01/31/25 HPI DM, hyperlipidemia, HTN HPI Details Patient comes in today for her follow up visit States that she feels okay She denies any headaches or dizziness Denies any chest pains, no increased SOB No nausea/vomiting, no abdominal pain No change in bowel habits noted Needs several of her Rx refilled She had her follow up labs done last week - to discuss her results [facility] Medical History Overactive bladder Diarrhea Morbid obesity with BMI of 40.0-44.9, adult Biliary dyskinesia Elevated TSH Obesity (BMI 30-39.9) Depression Anxiety Insomnia Obstructive sleep apnea Vitamin D deficiency 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 myelopathy or radiculopathy Elevated LFTs Allergic rhinitis Asthma Migraine Pure hypercholesterolemia Benign essential hypertension Diabetes mellitus IBS (irritable bowel syndrome) Gastroparesis Surgical History History of surgical removal of skin lesion (07/26/24) Status post epidural steroid injection History of cardiac cath Hx of tubal ligation Hx of colonoscopy (~03/2018) Hx of endoscopy History of surgery of head Hx of hysterectomy (~08/2011) Family History Father Diabetes Hypertension Heart problem Mother Arthritis Diabetes Hypertension Maternal Grandmother Breast cancer, Onset Age: 72 Family/Other Diabetes Hypertension Heart problem Social History Household Members: Spouse Housing: House Are you a primary direct care specialist to a significant other at home: No Do you presently have visiting nurse or other home services: No Alcohol intake: current Alcohol intake frequency: former alcohol drinker Comment: NOT INDICATED Patient Tobacco Use Status: Never used Tobacco e-Cigarette/Vaping Use: Never Used Second Hand Smoke Exposure: No Advance Directives Date on File: 03/20/16 service: No Current occupational status: disabled Cognitive needs: No Hearing needs: No Vision needs: Yes Female Reproductive History Menstrual Age of Menarche: 13 Questionnaire Thrive Questionnaire Date Thrive assessed: 01/31/25 I am a: Patient What is your living situation today?: I have a steady place to live Within the past 12 months, did the food you bought not last and you didn't have the money to get more?: Often true Within the past 12 months, did you worry whether your food would run out before you got money to buy more?: Often true Do you have trouble paying for medicines?: No Do you have trouble getting transportation to medical appointments?: No Do you have trouble paying your heating and electricity bill?: No Do you have trouble taking care of your child, family member or friend?: No Do you have trouble with day-to-day activities such as bathing, preparing meals, shopping, managing finances, etc.?: No Are you currently unemployed and looking for a job?: No Are you interested in more education?: No Please select the resources that you would like help with: None Currently or been in a relationship where the following occur: I choose not to answer THRIVE Score: 2 FADUMO-7 AMB Questionnaire FADUMO-7 Date FADUMO - 7 assessed: 01/31/25 Source: Developed by Drs. Raymond Plunkett, Meaghan Art, Keshav Castro and colleagues, with an educational david from [employer]. Review of Systems Const Denies chills, Reports fatigue, Denies fever(s) and Denies headache(s) ENT Denies dysphagia, Denies dizziness, Denies otalgia, Denies headache(s), Denies neck pain, Denies odynophagia and Denies sore throat Card Denies chest pain, Denies irregular heart rhythm, Denies palpitations and Reports dyspnea on exertion (mild) Resp Denies chest congestion, Denies cough, Reports dyspnea on exertion (mild) and Denies wheezing GI Denies abdominal pain, Denies dysphagia, Denies heartburn, Denies diarrhea, Denies nausea, Denies odynophagia and Denies vomiting Denies hematuria, Denies difficulty voiding, Reports nocturia, Denies dysuria, Reports urinary incontinence and Denies urinary urgency Musc Reports back pain (over the lower back - chronic), Reports arthralgias (on and off) and Denies neck pain Skin/Breast Denies rash Neuro Denies dizziness and Denies headache(s) Endo Reports fatigue and Denies palpitations Aller/Immun Denies wheezing Physical exam (Primary Care) Vital Signs: Last Vital Signs Temp 97.1 F 06/06/25 13:30 Pulse 73 06/06/25 13:30 BP 110/70 06/06/25 13:30 Pulse Ox 97 06/06/25 13:30 Oxygen Delivery Method Room Air 06/06/25 13:30 BMI result Body Mass Index 36.9 Tobacco/Smoking Status: Tobacco use Status Tobacco use date assessed 06/06/25 06/06/25 13:37 Patient Tobacco Use Status Never used Tobacco 06/06/25 13:37 e-Cigarette/Vaping Use Never Used 06/06/25 13:37 Thrive Assessment: Date of Thrive Assessment Date Thrive assessed 01/31/25 06/06/25 13:37 Currently or been in a relationship where the following occur: I choose not to answer Const General: no acute distress and alert HENMT Ears: TM's normal bilaterally and EAC's normal Throat: Yes posterior oropharynx normal and Yes tonsils normal (no TP congestion noted) Neck Neck: Yes supple and No lymphadenopathy Thyroid: Thyroid normal Resp Auscultation: clear to auscultation bilaterally, no rales and no wheezes Cardio Rate: regular rate Rhythm: regular rhythm Heart sounds: no murmurs GI Palpation (GI): Soft to palpation and nontender Auscultation: normal bowel sounds General: Yes no CVA tenderness Back/Spine/Pelvis Back: no CVA tenderness Thoracic/Lumbar Spine: thoracic spinal tenderness and lumbar spinal tenderness Skin Rashes: no rashes Extrem General: Yes no clubbing, cyanosis or edema Right upper extremity: wrist Details: tenderness; no swelling Left upper extremity: wrist ((+) tenderness, especially over the dorsal aspect ) Left lower extremity: knee Details: tenderness Location: of the pre-patellar area and of the infrapatellar area; no swelling Results Reviewed Results Reviewed: Laboratory Tests 05/30/25 05/30/25 05/30/25 10:25 10:28 10:30 WBC 8.6 Hgb 12.0 Hct 39.0 Plt Count 287 Sodium 139 Potassium 4.8 Creatinine 0.67 Estimated GFR > 60 Fasting Glucose 160 H Hemoglobin A1c % 7.2 H Calcium 9.6 D AST 19 ALT 13 Triglycerides 171 H Cholesterol 150 LDL Cholesterol, Calc 56 HDL Cholesterol 60 Vitamin B12 246 25-OH Vitamin D Total 42.2 TSH 1.71 Ur Specific Mobile 1.015 Urine Protein Negative Urine Glucose (UA) Negative Urine Blood Negative Urine Nitrite Negative Ur Leukocyte Esterase Negative Microalb/Creat Ratio 13.1 Coding Level of Care Code Est Pt Level 4 (16958) Diagnoses Pure hypercholesterolemia E78.00 Type 2 diabetes mellitus without complication, without long-term current use of insulin E11.9 Diabetes mellitus complication status: without complication 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 insulin use: without [facility] use Diabetes mellitus type: type 2 Benign essential hypertension I10 Migraine without status migrainosus, not intractable, unspecified migraine type G43.909 Intractability: not intractable Migraine type: unspecified Status migrainosus presence: without status migrainosus Moderate persistent asthma without complication J45.40 Asthma complication type: uncomplicated Asthma persistence: persistent Asthma severity: moderate Allergic rhinitis, unspecified seasonality, unspecified trigger J30.9 Allergic rhinitis seasonality: unspecified Allergic rhinitis trigger: unspecified Obstructive sleep apnea G47.33 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 myelopathy or radiculopathy M47.816 Chronic idiopathic constipation K59.04 Gastroesophageal reflux disease without esophagitis K21.9 Esophagitis presence: without esophagitis Biliary dyskinesia K82.8 Elevated LFTs R79.89 Vitamin D deficiency E55.9 Elevated vitamin B12 level R74.8 Overactive bladder N32.81 Insomnia, unspecified type G47.00 Insomnia type: unspecified Anxiety F41.9 Episode of recurrent major depressive disorder, unspecified depression episode severity F33.9 Active/Remission status: currently active Depression Type: major depressive disorder Major depression episode severity: unspecified Major depression recurrence: recurrent Obesity (BMI 30-39.9) E66.9 Assessment & Plan Assessment & Plan (1) Pure hypercholesterolemia: Code(s): E78.00 - Pure hypercholesterolemia, unspecified Category: Medical Plan: Results of her labs done last week reviewed and discussed with patient She underwent coronary angiography back on 06/11/2022 after her cardiac stress testing came back abnormal - myocardial perfusion study revealed (+) distal lateral, apical and inferoapical ischemia Cardiac catheterization revealed completely normal coronaries with no atherosclerotic lesions Reinforced low cholesterol diet Continue Atorvastatin 20 mg QD Will recheck her labs and fasting lipids in 4 months for follow-up (2) Diabetes mellitus: Comment: taking Victoza, Metformin & Actos Code(s): E11.9 - Type 2 diabetes mellitus without complications Category: Medical Qualifiers: Diabetes mellitus complication status: without complication 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 insulin use: without [facility] use Diabetes mellitus type: type 2 Qualified Code(s): E11.9 - Type 2 diabetes mellitus without complications Plan: Her HgbA1c was at 7.2% on her labs done last week (was previously at 7.0% a few months ago) - goal is HgbA1c of < 7.0% Reinforced diabetic diet Continue Victoza 18 mg/ 3 mL 0.2 mL (1.2 mg) QD (Rx refilled), Pioglitazone 45 mg QD and Metformin 1000 mg BID (3) Benign essential hypertension: Code(s): I10 - Essential (primary) hypertension Category: Medical Plan: Reinforced low sodium diet - goal is systolic BP of at least 120 to 130 mm or less Patient is reminded to continue monitoring her blood pressure regularly - patient has not needed any Rx for her BP for the past couple of years although she is on Propranolol 80 mg BID for prophylactic Tx of her migraine headaches (4) Migraine: Code(s): G43.909 - Migraine, unspecified, not intractable, without status migrainosus Category: Medical Qualifiers: Intractability: not intractable Migraine type: unspecified Status migrainosus presence: without status migrainosus Qualified Code(s): G43.909 - Migraine, unspecified, not intractable, without status migrainosus Plan: Continue Topiramate 100 mg BID, Propranolol 80 mg BID and Fioricet 50-325 mg 1 t ablet every 4-6 hours as needed Continue Ubrelvy 100 mg PRN and Aimovig 140 mg SQ every 6 months Patient also used to receive Botox injection every 3 months from Neurology but states that she is no longer getting the injections at present Follow-up with Neurology (Dr. Lieberman) every 3 months as scheduled (5) Asthma: Comment: SHE CONTINUES TO COMPLAIN OF MINIMAL SHORTNESS OF BREATH ON WALKING, BUT NO WHEEZING. PULMONARY FUNCTION TEST IN 2022 WAS ESSENTIALLY NORMAL. SHE MAY STILL HAVE MILD INTERMITTENT BRONCHIAL ASTHMA. I THINK SHORTNESS OF BREATH ON EXERTION IS RELATED TO HER MORBID OBESITY. Code(s): J45.909 - Unspecified asthma, uncomplicated Category: Medical Qualifiers: Asthma complication type: uncomplicated Asthma persistence: persistent Asthma severity: moderate Qualified Code(s): J45.40 - Moderate persistent asthma, uncomplicated Plan: Controlled Continue QVAR RediHaler 80 mcg 1 puff twice a day and ProAir HFA 2 puffs 4 times a day as needed (6) Allergic rhinitis: Comment: SYMPTOMS OF CHRONIC ALLERGIC RHINITIS SEEM TO BE UNDER CONTROL . Code(s): J30.9 - Allergic rhinitis, unspecified Category: Medical Qualifiers: Allergic rhinitis seasonality: unspecified Allergic rhinitis trigger: unspecified Qualified Code(s): J30.9 - Allergic rhinitis, unspecified Plan: Continue Montelukast 10 mg QD and Rhinocort Aqua 2 sprays to each nostril QD PRN She was on Nasacort nasal spray 1 spray to each nostril QD in the past but she stopped using it a while back as the nasal spray reportedly irritates her sinuses (7) Obstructive sleep apnea: Comment: THIS PATIENT IS KNOWN TO HAVE OBSTRUCTIVE SLEEP APNEA SINCE 2019 HAS BEEN USING CPAP REGULARLY. SHE IS BEING FOLLOWED BY AND MANAGED FOR SLEEP APNEA BY HER NEUROLOGIST. CLAIMS THAT SHE DOES USE THE CPAP EVERY NIGHT, AND SLEEPS WELL. Code(s): G47.33 - Obstructive sleep apnea (adult) (pediatric) Category: Medical Plan: Continue using her CPAP device every night when sleeping Follow up with Sleep Medicine as scheduled (8) 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 myelopathy or radiculopathy: Code(s): M47.816 - Spondylosis without myelopathy or radiculopathy, lumbar region Category: Medical Plan: Reinforced activity and weight-lifting restrictions Repeat lumbar spine x-rays done a couple of years ago showed (+) degenerative changes at L5-S1 and lower lumbar facet arthritis Lumbar spine MRI done on 09/14/2021 revealed a severe disc height loss with mild subchondral endplate edema at L5-S1. The bulging this flattens the ventral thecal sac with encroachment on the subarticular zones and abutment of both exiting L5 nerve roots Continue Tramadol 50 mg TID PRN and Gabapentin 300 mg Q HS Follow up with pain management as scheduled - gets back injections when needed with (+) relief (9) Chronic idiopathic constipation: Code(s): K59.04 - Chronic idiopathic constipation Category: Medical Plan: Reinforced increased oral fluids and dietary fiber Continue Linzess 290 mcg QD, MOM 5 ml Q HS and Fiber Laxative daily Follow up with GI as scheduled for continuing management of her chronic constipation (10) GERD (gastroesophageal reflux disease): Code(s): K21.9 - Gastro-esophageal reflux disease without esophagitis Category: Medical Qualifiers: Esophagitis presence: without esophagitis Qualified Code(s): K21.9 - Gastro-esophageal reflux disease without esophagitis Plan: Dietary restrictions reinforced Continue Esomeprazole 40 mg QD - Rx refilled (11) Biliary dyskinesia: Code(s): K82.8 - Other specified diseases of gallbladder Category: Medical Plan: HIDA scan with CCK done in November 2020 revealed poor gallbladder emptying and low gallbladder ejection fraction consistent with impaired gallbladder contractility and suggests chronic cholecystitis She was referred to and seen by surgery a couple of years ago and advised that her symptoms are more suggestive of GERD and recommended no surgery at the time but patient was advised to call if her symptoms get worse (12) Elevated LFTs: Code(s): R79.89 - Other specified abnormal findings of blood chemistry Category: Medical Plan: Improved - was most likely related to her weight (hepatosteatosis) Her LFTs on her recent labs remained normal Will continue to monitor her LFTs regularly (13) Vitamin D deficiency: Code(s): E55.9 - Vitamin D deficiency, unspecified Category: Medical Plan: Continue Vitamin D3 2000 units QD (14) Elevated vitamin B12 level: Code(s): R74.8 - Abnormal levels of other serum enzymes Category: Medical Plan: Corrected Patient was advised last year that her Vitamin B12 level has been elevated significantly for a while now and she was referred to hematology for further evaluation Her work ups were all essentially normal, including flow cytometry She was advised that this was likely caused by enhanced production of haptoglobin related to her liver disease Her B12 level has since normalized and her most recent B12 level last checked a week ago remained normal Will continue to monitor her B12 level regularly (15) Overactive bladder: Code(s): N32.81 - Overactive bladder Category: Medical Plan: Follow up with urology as scheduled She uses Adult pull ups to help manage her OAB (16) Insomnia: Code(s): G47.00 - Insomnia, unspecified Category: Medical Qualifiers: Insomnia type: unspecified Qualified Code(s): G47.00 - Insomnia, unspecified Plan: Sleep hygiene reinforced Continue Zolpidem 10 mg Q HS PRN (17) Anxiety: Code(s): F41.9 - Anxiety disorder, unspecified Category: Medical Plan: Continue Clonazepam 1 mg TID PRN (18) Depression: Code(s): F32.9 - Major depressive disorder, single episode, unspecified Category: Medical Qualifiers: Active/Remission status: currently active Depression Type: major depressive disorder Major depression episode severity: unspecified Major depression recurrence: recurrent Qualified Code(s): F33.9 - Major depressive disorder, recurrent, unspecified Plan: Continue Geodon 80 mg BID, Sertraline 100 mg once a day and Amitriptyline 75 mg once a day at bedtime Follow-up with Psychiatry as scheduled (19) Obesity (BMI 30-39.9): Comment: REMAINS OVERWEIGHT, HAS NOT LOST ANY WEIGHT RATHER GAINED A FEW LB. THIS IS MAINLY BECAUSE SHE IS NOT PHYSICALLY ACTIVE AND DOES NOT DO ANY REGULAR EXERCISE. Code(s): E66.9 - Obesity, unspecified Category: Medical Plan: Reinforced diet/exercise as tolerated /lose weight Plan Follow up in 4 months Orders: Orders Hemoglobin A1c 4 Months E11.9 - Type 2 diabetes mellitus without complications Complete Blood Count Auto Diff 4 Months D64.9 - Anemia, unspecified Lipid Panel 4 Months E78.00 - Pure hypercholesterolemia, unspecified Microalbumin, Random (w Creat) 4 Months E11.9 - Type 2 diabetes mellitus without complications TSH reflex Free T4 4 Months E78.00 - Pure hypercholesterolemia, unspecified Vitamin D 25-OH Total 4 Months E55.9 - Vitamin D deficiency, unspecified Comprehensive [place]. Panel Fast 4 Months E78.00 - Pure hypercholesterolemia, unspecified UA CC w/rflx Micro + Cult 4 Months R30.0 - Dysuria Vitamin B12 and Folate 4 Months E53.8 - Deficiency of other specified B group vitamins Medications: New meclizine 25 mg PO TID PRN 60 tabs 1RF dizziness glipizide ER 2.5 mg PO DAILY 30 tabs 3RF 30 days Refilled atorvastatin 20 mg PO BEDTIME 90 tabs 1RF 90 days cholecalciferol (vitamin D3) 50 mcg PO DAILY 90 caps 3RF 90 days E55.9 - Vitamin D deficiency, unspecified pioglitazone 45 mg PO DAILY 90 tabs 1RF ondansetron 4 mg sublingual TID 15 tabs 12RF esomeprazole magnesium 40 mg PO DAILY 90 caps 2RF
[2025-06-06 13:30] VITALS: BP 110/70; PULSE 73; TEMP 36.2; O2SAT 97; BMI 36.9
--- OUTSIDE RECORDS SUMMARY | 2025-06-06 22:12 | XMS_ITS | Encounter Summary ---
Author Organization [employer] Address [address] [place] [address] Care Team Providers Care Senior Premium Auditor Name Role Phone Unavailable Primary Care Provider Unavailabl e Encounter Details Date Type Department Care Team (Latest Contact Info) Description 03/18/2019 Abstract [facility] CONVERSIONS Dental, Provider, DDS Social [...]
--- OUTSIDE RECORDS SUMMARY | 2025-06-06 22:12 | XMS_ITS | Encounter Summary ---
Author Organization [employer] Address [address] [place] [address] Care Team Providers Care Workers' Compensation Mediator Name Role Phone Unavailable Primary Care Provider Unavailabl e Encounter Details Date Type Department Care Team (Latest Contact Info) Description 05/17/2021 Abstract [facility] CONVERSIONS Dental, Provider, DDS Social History [...]
--- OUTSIDE RECORDS SUMMARY | 2025-06-06 22:12 | XMS_ITS | Data Portability ---
Author Organization [facility] [employer] Address [address] [place] [address] Care Team Providers Care Shift Commander Name Role Phone LATIA RASHID Referring Provider [...] with April 2023 confirmation of medications from [facility]) -From [facility]: propranolol 60 mg twice daily topiramate 100 mg twice daily, Aimovig 140 mg/mL monthly autoinjector and Ubrelvy 100 mg as needed for breakthrough migraine from [facility] (she was also concurrently on rizatriptan [...] con la versi n gratuita del traductor [employer] (with edits by me) -Continue propranolol 60mg [...] with April 2023 confirmation of medications from [facility]) -From [facility]: propranolol 60 mg twice daily topiramate 100 mg twice daily, Aimovig 140 mg/mL monthly autoinjector and Ubrelvy 100 mg as needed for breakthrough migraine from [facility] (she was also concurrently on rizatriptan [...] with April 2023 confirmation of medications from [facility]) -From [facility]: propranolol 60 mg twice daily topiramate 100 mg twice daily, Aimovig 140 mg/mL monthly autoinjector and Ubrelvy 100 mg as needed for breakthrough migraine from [facility] (she was also concurrently on rizatriptan [...] with April 2023 confirmation of medications from [facility]) -From [facility]: propranolol 60 mg twice daily topiramate 100 mg twice daily, Aimovig 140 mg/mL monthly autoinjector and Ubrelvy 100 mg as needed for breakthrough migraine from [facility] (she was also concurrently on rizatriptan [...] with April 2023 confirmation of medications from [facility]) -From [facility]: propranolol 60 mg twice daily topiramate 100 mg twice daily, Aimovig 140 mg/mL monthly autoinjector and Ubrelvy 100 mg as needed for breakthrough migraine from [facility] (she was also concurrently on rizatriptan [...] Modified Time Details Appointments FOLLOW UP EXT 2025 09:30A M Imer Lieberman MD PhD Not available Not available Not available Lab None recorded. Referral None recorded. Procedures None recorded. Surgeries None recorded. Imaging None recorded. Medication Orders propranol ol 60 mg tablet 2024 025 [id number], [address] [place] [address], [address], 11/16/2024 12:32:28 topiramat e 50 mg tablet 2024 025 [id number], [address] [place], [address], 11/16/2024 12:32:27 Ubrelvy 100 mg tablet 2024 025 [id number], [address] [place], [address], 11/16/2024 12:32:29 Aimovig Autoinjec tor 140 mg/mL subcutane ous auto-inje ctor 2024 025 [facility], [address], [place], [address], 12/26/2024 15:43:24 Ajovy 225 mg/1.5 mL subcutane ous auto-inje ctor 2023 025 [facility], [address] [place], [address], 11/16/2024 12:31:09 Ubrelvy 100 mg tablet 2023 024 [id number], [address] [place], [address], 03/23/2024 12:47:07 Ajovy 225 mg/1.5 mL subcutane ous auto-inje ctor 2023 024 cyndy [facility] #0373, [address] [place], [address], 11/16/2024 12:31:04 propranol ol 60 mg tablet 2023 024 [facility], [address] [place], [address], 11/11/2023 11:21:02 topiramat e 50 mg tablet 2023 024 [facility] [address] [place], [address], 11/11/2023 11:21:03 Aimovig Autoinjec tor 140 mg/mL subcutane ous auto-inje ctor 2023 024 [id number] [address] [place], [address], 03/23/2024 12:59:57 Ubrelvy 100 mg tablet 2023 024 [facility] [address] [place], [address], 11/11/2023 11:21:02 topiramat e 100 mg tablet 2023 024 [id number] [address] [place] [address], [address], 11/16/2024 12:30:36 propranol ol 60 mg tablet 2023 024 [facility] [address] [place] [address], [address], 10/07/2023 10:22:21 Aimovig Autoinjec tor 140 mg/mL subcutane ous auto-inje ctor 2023 024 [id number] [address] [place], [address], 03/23/2024 12:59:57 Ubrelvy 100 mg tablet 2023 024 [id number] [address] [place] [address], [address], 10/07/2023 10:22:21 Patient TargetsNo targets recorded. 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 She was running out of UbThink Upgrade for breakthrough migraine reported October 01, 2022. 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 PREVIOUS MEDICATIONS daily April 2023, reduced [...] today, I reviewed the propranolol prescription in [place] and noted that she had a 90-day [...] not discuss the addition of rizatriptan through [employer] which we have discussed previously as she [...] management cyndy Not available 12/10/2023 11:56:12 03/23/2024 [id number] 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 PREVIOUS MEDICATIONS Amitriptyline 75 mg, February [...] today, I reviewed the propranolol prescription in [place] and noted that she had a 90-day [...] not discuss the addition of rizatriptan through [employer] which we have discussed previously as she [...] management cyndy Not available 03/23/2024 13:04:40 11/16/2024 [id number] 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 Procedures Surgical History Date Name Laterality Status Provider Name and Address Organization Details Recorded Time 5 botulinum injection completed Imer Lieberman MD [address] [place] [address] [place], [address], [facility] 11/16/2024 12:14:33 4 botulinum injection completed Imer Lieberman MD [address] [place] [address], YAKOV [place], [address], [facility] 03/23/2024 12:37:46 4 botulinum injection completed Imer Lieberman MD [address] [place] [address] B, YAKOV [place], [address], [facility] 12/10/2023 11:56:10 4 botulinum injection completed Imer Lieberman MD [address] [place] [address] B, YAKOV [place], [address], [facility] 11/11/2023 11:10:22 4 botulinum injection completed ENRIKE NORTON PA-C [address] [place] [address] B, YAKOV [place], [phone], [facility] 10/07/2023 10:03:49 3 botulinum injection completed ENRIKE NORTON PA-C [address] [place] [address] B, YAKOV [place], [address], [facility] 05/28/2023 09:39:33 3 botulinum injection completed ENRIKE NORTON PA-C [address] [place] [address] B, YAKOV Mon[place]o, [address], [facility] 04/24/2023 10:42:13 3 botulinum injection completed ENRIKE NORTON PA-C [address] [place] [address] B, YAKOV Mon[place]o, [address], [facility] 03/18/2023 10:47:21 3 botulinum injection completed ENRIKE NORTON PA-C [address] [place] [address] B, YAKOV Montero, [address], [facility] 01/23/2023 09:59:39 3 botulinum injection completed ENRIKE NORTON PA-C [address] [place] [address] B, YAKOV Montero, [address], [facility] 12/19/2022 11:33:40 3 botulinum injection completed ENRIKE NORTON PA-C [address] [place] [address] B, YAKOV Montero, [address], [facility] 11/28/2022 13:56:45 3 botulinum injection completed ENRIKE NORTON PA-C [address] [place] [address] B, YAKOV Montero, [address], [facility] 10/29/2022 10:47:52 3 botulinum injection completed ENRIKE NORTON PA-C [address] [place] [address] B, YAKOV Montero, [address], [facility] 10/01/2022 13:50:41 3 botulinum injection completed Imer Lieberman MD [address] [place] [address] B, YAKOV Montero, [address], [facility] 08/14/2022 17:00:39 3 botulinum injection completed ENRIKE NORTON PA-C [address] [place] [address] B, YAKOV Montero, [address], [facility] 07/09/2022 14:05:58 2 botulinum injection completed Imer Lieberman MD [address] [place] [address] B, YAKOV Montero, [address], [facility] 05/16/2022 13:33:52 2 botulinum injection completed ENRIKE NORTON PA-C [address] [place] [address] B, YAKOV Montero, [phone], [facility] 03/14/2022 14:10:23 2 botulinum injection completed Imer Lieberman MD [address] [place] [address] B, YAKOV Montero, [address], [facility] 02/13/2022 09:15:23 2 botulinum injection completed ENRIKE NORTON PA-C [address] [place] [address] B, YAKOV Montero, [address], [facility] 12/06/2021 13:50:32 2 botulinum injection completed Imer Lieberman MD [address] [place] [address], Winston YAKOV, [address], [facility] 11/07/2021 13:30:06 2 botulinum injection completed ENRIKE NORTON PA-C [address] [place] [address], Winston YAKOV, [address], [facility] 09/05/2021 14:12:15 2 botulinum injection completed Imer Lieberman MD [address] [place] [address], WinstonYAKOV richard, [address], [facility] 07/25/2021 15:27:34 2 botulinum injection completed ENRIKE NORTON PA-C [address] [place] [address], [place], [address], [facility] 07/12/2021 08:55:03 1 botulinum injection completed ENRIKE NORTON PA-C [address] [place] [address], YAKOV Montero, [address], [facility] 05/29/2021 22:54:52 1 botulinum injection completed Imer Lieberman MD [address] [place] [address], YAKOV Montero, [address], [facility] 04/25/2021 14:30:46 1 botulinum injection completed Imer Lieberman MD [address] [place] [address] YAKOV Montero, [address], [facility] 01/24/2021 19:05:02 1 botulinum injection completed Imer Lieberman MD [address] [place] [address] YAKOV Montero, [address], [facility] 10/25/2020 18:09:08 Imaging Results None [...] for 30 days. 11/16 completed bck to [employer] works as well ins. 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 Dystonia 34261655 G24.3 Facial spasm 09585512 G5 1.39 Migraine without aura 56 366871 G43.009 1422 Imer Lieberman MD [facility] [address] [place] [address] [place] [address] 01/24/2021 14:50:22 01/25/2021 08:16:40 Idiopathic non-familial dystonia 378547836 G24.1 Dystonia 67563030 G24.3 Facial spasm 35371227 G5 1.39 Migraine without aura 56 291969 G43.009 [id number] Imer Lieberman MD [facility] [address] [place] [address] [place] [address] 02/28/2021 11:51:24 02/28/2021 12:29:37 Idiopathic non-familial dystonia 042947228 G24.1 Dystonia 39666787 G24.3 Facial spasm 02539082 G5 1.39 Migraine without aura 56 518674 G43.009 [id number] Imer Lieberman MD [facility] [address] [place] [address] JOSE RETANAHILARY YAKOV [address] 4 04/25/2021 12:22:14 04/26/2021 07:40:15 Idiopathic non-familial dystonia 463282872 G24.1 Dystonia 04216604 G24.3 Facial spasm 51912625 G5 1.39 Migraine without aura 56 253710 G43.009 [id number] [facility] [address] [place] [address] Gordo YAKOV MON[place] [address] 4 05/29/2021 10:02:07 05/30/2021 15:05:44 Idiopathic non-familial dystonia 873483607 G24.1 Dystonia 98101086 G24.3 Facial spasm 49310458 G5 1.39 Migraine without aura 56 504198 G43.009 Migraine with aura 53351 06 G43.109 [id number] [facility] [address] [place] [address] JOSE Caro YAKOV MONTERO [address] 4 07/12/2021 08:51:06 08/03/2021 15:14:49 Idiopathic non-familial dystonia 679803043 G24.1 Dystonia 66316291 G24.3 Facial spasm 16294029 G5 1.39 Migraine without aura 56 378372 G43.009 3644 Imer Lieberman MD [facility] [address] [place] [address] Gordo YAKOV MONTER[place] [address] 4 07/25/2021 13:52:53 07/25/2021 16:35:44 Idiopathic non-familial dystonia 041627806 G24.1 Dystonia 61500522 G24.3 Facial spasm 04221835 G5 1.39 Migraine without aura 56 186175 G43.009 4286 ENRIKE NORTON PA-C [facility] [address] [place] [address] Gordo YAKOV MONTERO [address] 4 09/05/2021 14:01:17 09/10/2021 10:57:43 Idiopathic non-familial dystonia 946354260 G24.1 Dystonia 21880452 G24.3 Facial spasm 69011747 G5 1.39 Migraine without aura 56 762884 G43.009 5019 Imer Lieberman MD [facility] [address] [place] [address] Gordo RETANAWINSTONYAKOV RICHARD [address] 4 11/07/2021 12:25:50 11/07/2021 18:58:37 Idiopathic non-familial dystonia 523881133 G24.1 Dystonia 60904830 G24.3 Facial spasm 85864894 G5 1.39 Migraine without aura 56 238960 G43.009 5418 ENRIKE NORTON [facility] [address] [place] [address] JOSE Caro YAKOV MONTERO [address] 4 12/06/2021 13:06:48 12/10/2021 15:27:19 Idiopathic non-familial dystonia 899919615 G24.1 Dystonia 29600975 G24.3 Facial spasm 45819942 G5 1.39 Migraine without aura 56 464738 G43.009 6156 Imer Lieberman MD [facility] [address] [place] [address] JOSE Caro YAKOV MONTERO [address] 4 02/13/2022 07:56:35 02/13/2022 09:24:50 Idiopathic non-familial dystonia 052517225 G24.1 Dystonia 60254586 G24.3 Facial spasm 57243854 G5 1.39 Migraine without aura 56 726960 G43.009 6451 ENRIKE NORTON [facility] [address] [place] [address] JOSE Caro YAKOV MONTERO [address] 4 03/14/2022 13:58:56 03/19/2022 09:35:39 Idiopathic non-familial dystonia 191367311 G24.1 Dystonia 86586077 G24.3 Facial spasm 19444809 G5 1.39 Migraine without aura 56 447985 G43.009 7012 Imer Lieberman MD [facility] [address] [place] [address] Gordo YAKOV MONTERO [address] 4 05/16/2022 11:40:07 05/16/2022 15:55:55 Idiopathic non-familial dystonia 091757239 G24.1 Dystonia 77812548 G24.3 Facial spasm 23236410 G5 1.39 Migraine without aura 56 521499 G43.009 7440 ENRIKE NORTON PA-C [facility] [address] [place] [address] Gordo YAKOV MONTERO [address] 4 07/09/2022 13:59:24 07/25/2022 12:39:21 Idiopathic non-familial dystonia 161368626 G24.1 Dystonia 84899395 G24.3 Facial spasm 88622716 G5 1.39 Migraine without aura 56 573815 G43.009 Migraine with aura 63553 06 G43.109 7846 Imer Lieberman MD [facility] [address] [place] [address] Gordo YAKOV MONTERO [address] 4 08/14/2022 15:04:31 08/14/2022 17:43:36 Idiopathic non-familial dystonia 848839894 G24.1 Dystonia 17553003 G24.3 Facial spasm 89437504 G5 1.39 Migraine without aura 56 269287 G43.009 8449 ENRIKE NORTON PA-C [facility] [address] [place] [address] Gordo YAKOV MONTERO [address] 4 10/01/2022 13:45:47 10/03/2022 11:40:32 Idiopathic non-familial dystonia 851698925 G24.1 Dystonia 55036095 G24.3 Facial spasm 63148463 G5 1.39 Migraine without aura 56 057642 G43.009 Migraine with aura 47879 06 G43.109 8764 ENRIKE NORTON PA-C [facility] [address] [place] [address] [place] [address] 4 10/29/2022 10:18:41 11/04/2022 15:06:43 Idiopathic non-familial dystonia 677228936 G24.1 Dystonia 44525461 G24.3 Facial spasm 15008875 G5 1.39 Migraine without aura 56 923968 G43.009 Migraine with aura 73104 06 G43.109 9112 ENRIKE NORTON PA-C [facility] [address] [place] [address] Gordo YAKOV MONTERO [address] 4 11/28/2022 13:27:59 12/02/2022 15:28:22 Idiopathic non-familial dystonia 331652984 G24.1 Dystonia 78056804 G24.3 Facial spasm 55691490 G5 1.39 Migraine without aura 56 740638 G43.009 Migraine with aura 05548 06 G43.109 9373 ENRIKE NORTON PA-C [facility] [address] [place] [address] [place] [address] 4 12/19/2022 11:07:15 12/23/2022 16:34:25 Idiopathic non-familial dystonia 593922227 G24.1 Dystonia 75217307 G24.3 Facial spasm 32962615 G5 1.39 Migraine without aura 56 990381 G43.009 Migraine with aura 16541 06 G43.109 9887 ENRIKE NORTON PA-C [facility] [address] [place] [address] [place] [address] 4 01/23/2023 09:21:21 02/10/2023 16:21:14 Idiopathic non-familial dystonia 252312516 G24.1 Dystonia 02314239 G24.3 Facial spasm 84665692 G5 1.39 Migraine without aura 56 869827 G43.009 Migraine with aura 61359 06 G43.109 [id number] ENRIKE NORTON PA-C [facility] [address] [place] [address] [place] [address] 4 03/18/2023 10:30:58 03/19/2023 17:32:28 Idiopathic non-familial dystonia 924074499 G24.1 Dystonia 05829934 G24.3 Facial spasm 22524232 G5 1.39 Migraine without aura 56 844626 G43.009 Migraine with aura 06698 06 G43.109 [id number] ENRIKE NORTON PA-C [facility] [address] [place] [address] [place] [address] 4 04/24/2023 10:15:35 04/30/2023 10:38:58 Idiopathic non-familial dystonia 585576030 G24.1 Dystonia 69542786 G24.3 Facial spasm 30758834 G5 1.39 Migraine without aura 56 280459 G43.009 Migraine with aura 28966 06 G43.109 [id number] ENRIKE NORTON PA-C [facility] [address] [place] [address] [place] [address] 4 05/28/2023 09:14:15 05/29/2023 16:35:04 Idiopathic non-familial dystonia 612679222 G24.1 Dystonia 66125964 G24.3 Facial spasm 68297005 G5 1.39 Migraine without aura 56 593367 G43.009 Migraine with aura 60743 06 G43.109 52543 ENRIKE NORTON PA-C [facility] [address] [place] [address] Gordo YAKOV MONTERO [address] 4 10/07/2023 09:31:55 10/13/2023 13:14:20 Idiopathic non-familial dystonia 894089270 G24.1 Dystonia 66080155 G24.3 Facial spasm 76737354 G5 1.39 Migraine without aura 56 859776 G43.009 Migraine with aura 86305 06 G43.109 [id number] Imer Lieberman MD [facility] [address] [place] [address] Gordo YAKOV MONTERO [address] 4 11/11/2023 10:36:51 11/11/2023 11:43:45 Idiopathic non-familial dystonia 276754791 G24.1 Dystonia 89016584 G24.3 Facial spasm 21967713 G5 1.39 Migraine without aura 56 124928 G43.009 Migraine with aura 23290 06 G43.109 [id number] Imer Lieberman MD [facility] [address] [place] [address] Gordo YAKOV MONTERO [address] 4 12/10/2023 11:11:30 12/10/2023 12:19:37 Idiopathic non-familial dystonia 193632307 G24.1 Dystonia 85804731 G24.3 Facial spasm 88345278 G5 1.39 Migraine without aura 56 521387 G43.009 Migraine with aura 70406 06 G43.109 [id number] Imer Lieberman MD [facility] [address] [place] [address] Gordo YAKOV MONTERO [address] 4 03/23/2024 11:39:14 03/23/2024 17:16:47 Idiopathic non-familial dystonia 325135827 G24.1 Dystonia 72441869 G24.3 Facial spasm 32175162 G5 1.39 Migraine without aura 56 419118 G43.009 Migraine with aura 56758 06 G43.109 [id number] Imer Lieberman MD [facility] [address] [place] [address] [place] [address] 4 11/16/2024 11:28:18 11/16/2024 12:38:59 Idiopathic non-familial dystonia 574197216 G24.1 Dystonia 59997481 G24.3 Facial spasm 43988691 G5 1.39 Migraine without aura 56 151599 G43.009 Migraine with aura 37782 06 G43.109 Health Concerns Section Related Observation LastModified by Organization Detai ls LastModified Time None Recorded Concern Status LastModified by Organization Details LastModified Time None Recorded Advance Directives Directive None Recorded Payers Insurance Date Sequence Insurance Name Policy Number Policy Leone Covered Member ID Leone Member ID Guarantor Name 05/30/2025 1 [facility] ([facility]) ISABELLAHillary Ute Goldberg [id number] Ute Goldberg Notes Date Note Type Note [...] working with Andreina Greer APRN, [facility] and will be [...] but she has also been to her product management specialist/ophthalm ologist and had her glasses changed but [...] pickler the Aimovig 70 mg/mL sample and p [...] with psychiatry on this. Imer Lieberman MD [address] [place] [address], [phone], [facility] 10/13/2023 11:40:53 11/11/2023 text/html Follow-up [...] working with Andreina Greer APRN, [facility] and will be [...] but she has also been to her product management specialist/ophthalm ologist and had her glasses changed but [...] pickler the Aimovig 70 mg/mL sample and p [...] with psychiatry on this. Imer Lieberman MD [address] [place] [address], [phone], [facility] 11/11/2023 11:32:39 12/10/2023 text/html Follow-up [...] working with Andreina Greer APRN, [facility] and will be [...] but she has also been to her product management specialist/ophthalm ologist and had her glasses changed but [...] pickler the Aimovig 70 mg/mL sample and p [...] with psychiatry on this. Imer Lieberman MD [address] [place] [address] [place], [address], [facility] 12/10/2023 12:17:54 03/23/2024 text/html Follow-up [...] working with Andreina Greer APRN, [facility] and will be [...] but she has also been to her product management specialist/ophthalm ologist and had her glasses changed but [...] pickler the Aimovig 70 mg/mL sample and p [...] with psychiatry on this. Imer Lieberman MD [address] [place] [address], [phone], [facility] 03/23/2024 13:04:47 11/16/2024 text/html Follow-up of [...] working with Andreina Greer APRN, [facility] and will be [...] but she has also been to her product management specialist/ophthalm ologist and had her glasses changed but [...] pickler the Aimovig 70 mg/mL sample and p [...] with psychiatry on this. Imer Lieberman MD [address] [place] [address] [place], [phone], [facility] 11/16/2024 12:37:21 OBGyn Episode No OBEpisode recorded.
--- OUTSIDE RECORDS SUMMARY | 2025-06-06 22:13 | XMS_ITS | Clinical Summary ---
Author Organization [employer] Address [address] [place] [address] Care Team Providers Care Administrative Tech Name Role Phone Unavailable Primary Care [...]
== END 2025-06-06 14:28 | disposition home or self-care (01) ==
LOC: HO.HMCH 13:27
PROVIDERS: PCP Internal Medicine; Visit Provider Internal Medicine
DX: E78.00 Pure hypercholesterolemia, unspecified (principal); E11.9 Type 2 diabetes mellitus without complications; E66.9 Obesity, unspecified; Z68.36 Body mass index [BMI] 36.0-36.9, adult; I10 Essential (primary) hypertension; G43.909 Migraine, unspecified, not intractable, without status migrainosus; J45.40 Moderate persistent asthma, uncomplicated; J30.9 Allergic rhinitis, unspecified; G47.33 Obstructive sleep apnea (adult) (pediatric); M47.816 Spondylosis without myelopathy or radiculopathy, lumbar region; K59.04 Chronic idiopathic constipation; K21.9 Gastro-esophageal reflux disease without esophagitis; K82.8 Other specified diseases of gallbladder; R79.89 Other specified abnormal findings of blood chemistry; E55.9 Vitamin D deficiency, unspecified; R74.8 Abnormal levels of other serum enzymes; N32.81 Overactive bladder; G47.00 Insomnia, unspecified; F41.9 Anxiety disorder, unspecified; F33.9 Major depressive disorder, recurrent, unspecified

== ENCOUNTER → 2025-06-06 13:26 | Outpatient (BNVA) | payer OTHER, SELFPAY | PROVIDERS: PCP Internal Medicine; Visit Provider Internal Medicine | DX: E78.00 Pure hypercholesterolemia, unspecified (principal); E11.9 Type 2 diabetes mellitus without complications; I10 Essential (primary) hypertension; G43.909 Migraine, unspecified, not intractable, without status migrainosus; J45.40 Moderate persistent asthma, uncomplicated; J30.9 Allergic rhinitis, unspecified; G47.33 Obstructive sleep apnea (adult) (pediatric); M47.816 Spondylosis without myelopathy or radiculopathy, lumbar region; K59.04 Chronic idiopathic constipation; K21.9 Gastro-esophageal reflux disease without esophagitis; K82.8 Other specified diseases of gallbladder; R79.89 Other specified abnormal findings of blood chemistry; E55.9 Vitamin D deficiency, unspecified; R74.8 Abnormal levels of other serum enzymes; N32.81 Overactive bladder; G47.00 Insomnia, unspecified; F41.9 Anxiety disorder, unspecified; F33.9 Major depressive disorder, recurrent, unspecified; E66.9 Obesity, unspecified; Z68.36 Body mass index [BMI] 36.0-36.9, adult | CPT/HCPCS: 99212 ==